=== PATIENT | male | born 1985 | race Caucasian/White ===

== ENCOUNTER 2024-07-16 16:23 | Emergency (ER) | payer OTHER, SELFPAY ==
--- OUTSIDE RECORDS SUMMARY | 2024-07-16 16:26 | XMS_ITS | Encounter Summary ---
Author Organization [facility] Address [address] [place] [address] Care Team Providers Care Marine Tower Operator Name Role Phone Tatyana Dwyer MD Primary Care P rolorettader Tatyana Dwyer MD Unavailable Annalee Toussaint-C Unavailable [phone] Cr Fung MD Unavailable Bianca Rubalcava RN Unavailable [phone] Keegan Montemayor MD Unavailable Un available Joselin Andrade PA-C Unavailable Steven Tatum MD Unavailable Jim Mark MD Unavailable [phone] Jaime Wood MD Unavailable [phone] Annalee Toussaint-C Unavailable [phone] Honey Jackson APRN, CNP Unavailable [phone] Wm Ryan MD Unavailable Tatyana Dwyer MD Unavailable Amalia Agosto GC Unavailable Jaime Wood MD Unavailable [phone] Christen Gallardo MD Unavailable [phone] Ana Fink MD Unavailable Reason for Visit * Reason Onset Date Comments Patient Request 07/21/2019 Encounter Details Date Type Department Care Team ([facility] Contact Info) Description 07/21/2019 [facility] [place] [address] [place] [address] Annalee Toussaint, PAMarianaC [address] [place] [address] Patient Request Social History Tobacco Use Types Packs/Day Years Used Date Smoking Tobacco: Never Smokeless Tobacco: Never Alcohol Use Standard Drinks/Week Comments Yes 1 (1 standard drink = 0.6 oz pur e alcohol) Very occasional AUDIT-C Answer Date Recorded Q1: How often do you have a drink containing alc ohol? 2-4 times a month 06/16/2019 Q2: How many drinks containi ng alcohol do you have on a typical day when you are drinking? 1 or 2 06/16/2019 Q3: How often do you have si x or more drinks on one occasion? Never 06/16/2019 PHQ-2 Answer Date Recorded PHQ-2 Score 0 06/24/2018 Sex and Gender Information Value Date Recorded Sex Assigned at Male 12/19/2020 9:52 PM CDT Legal Sex Male 3:08 AM PURCHASING EXPEDITOR Gender Identity Male 12/19/2020 9:52 PM CDT Sexual Orientation Straight 12/19/2020 9: 52 PM CDT documented as of this encounter Miscellaneous Notes * Telephone Encounter - Luda Curtis - 07/21/2019 12:36 PM CST [facility] Call [facility] Phone Message May a detailed message be left on voicemail: yes Reason for Call: Other: Patient would like to be seen for testicular pain, patient has been seeing Breana and he sasid he no longer want to see her and is not wanting to see someone else. Please callto discuss. Action Taken: Other: [facility] Urology Travel Screening: Not Applicable HASING EXPEDITOR documented in this encounter Plan of Treatment Upcoming Encounters Date Type Department Care Team (Late st Contact Info) Description 08/18/2024 2:00 PM PURCHASING EXPEDITOR Virtual Visit [facility] [address] [facility] [address] [place] [phone] [place] [address] 11/20/2024 9:30 AM CDT Office Visit [facility] [address] [place] [phone] Tatyana Dwyer MD [address] [place], [place] [address] documented as of this encounter Visit Diagnoses Not on filedocumented in this encounter Additional Health Concerns Infection Onset Date Last Indicated Resolved Time Rule Out COVID-19 10/25/2021 10/25/2021 10/26/2021 12:43 PM CDT COVID-19 10/25/2021 10/25/2021 11/15/2021 11:3 9 PM CDT documented as of this encounter Care Teams Marine Tower Operator Relationship Specialty Start Date End Date Tatyana Dwyer MD [address] [place] [address] PCP - General Internal Medicine 06/01/19 Tatyana Dwyer MD [address] [place] [address] Assigned PCP 05/31/19 10/15/20 Annalee Toussaint PA-C [address] [facility] [address] [place] [address] Physician Mid Level Provider Physician Mid Level Provider - Medical 07/15/19 Cr Fung MD [address] [place] [address] [address] [place] [address] Urology 07/15/19 Bianca Rubalcava, RN Specialty Channel Development Director Urology 07/15/19 Keegan Montemayor MD Assigned Heart and Vascular Provider 04/08/20 12/27/20 Joselin Andrade PA-C [address] [place] [address] Assigned Pediatric Specialist Provider 04/08/20 07/17/20 [place] [address] [place] [address] Assigned Surgical Provider 04/08/20 07/22/21 Jim Mark MD [address] [place] [address] Assigned Musculoskeletal Provider 04/08/20 02/11/21 Jaime Wood MD [address] [place] [address] Assigned Sleep Provider 04/08/2004/08 Annalee Toussaint PA-C [address] [place] [address] Assigned OBGYN Provider 08/31/20 1 Honey Jackson APRN FELT STRIP FINISHER [address] [place] [address] Assigned PCP 10/16/20 02/04/21 Wm Ryan MD [address] [place] [address] Resident Student in [facility] health care education/training program 02/01/21 Tatyana Dwyer MD [address] [place] [address] Assigned PCP 02/05/21 Amalia Agosto GC [address] [place], [place] [address] Assigned OBGYN Provider 05/07/21 07/15/21 Jaime Wood MD [address] [id number] Assigned Sleep Provider 07/09/21 [place] [address] Assigned Endocrinology Provider 11/18/21 Ana Fink MD [address] [place] [address] Fellow Gastroenterology 10/16/22 documented as of this encounter
--- OUTSIDE RECORDS SUMMARY | 2024-07-16 16:26 | XMS_ITS | Encounter Summary ---
Author Organization [facility] Address [facility] [place] [address] Care Team Providers Care Ramp Supervisor Name Role Phone Tatyana Dwyer MD Primary Care P rovider Annalee Toussaint PA-C Unavailable [phone] Cr Fung MD Unavailable Bianca Rubalcava RN Unavailable [phone] Wm Ryan MD Unavailable Tatyana Dwyer MD Unavailable Christen Gallardo MD Unavailable [phone] Ana Fink MD Unavailable Encounter Details Date Type Department Care Team (Late st Contact Info) Description 11/29/2023 [facility] Specialty [address] [address] Christen [place] [address] Social History Tobacco Use Types Packs/Day Years Used Date Smoking Tobacco: Never Passive Smoke Exposure: Never Smokeless Tobacco: Never Alcohol Use Standard Drinks/Week Comments Yes 1 (1 standard drink = 0.6 oz pur e alcohol) 1 or less drinks per week Social Connection and Isolation Panel [NHANES] A nswer Date Recorded Frequency of Communication with Friends and Fami ly Not on file 11/16/2023 How often do you get together with friends or re latives? Twice a week 11/16/2023 Attends Zoroastrianism Services Not on file 11/15 Active Member of Clubs or Organizations Not on f ile 11/16/2023 Attends Club or Organization Meetings Not on sheila e 11/16/2023 Marital Status Not on file 11/16/2023 AUDIT-C Answer Date Recorded Q1: How often [...] PHQ-2 Answer Date Recorded PHQ-2 Score 0 11/21/2023 [facility] - Occupational Stress Questionnaire Answer Date Recorded Do you feel stress - tense, restless, nervous, or anxious, or unable to sleep at night because your mind is troubled all the time - these days? Not at all 11/16/2023 Exercise Vital Sign Answer Date Recorde d On average, how many days pe r week do you engage in moderate to strenuous exercise (like a brisk walk)? 6 days 11/16/2023 On average, how many minutes do you engage in exercise at this level? 30 min 11/16/2023 Adolescent Education Answer Date Record ed Getting School Help Needed Not on file 03/16 Food Insecurity Answer Date Recorded Within the past 12 months, d id you worry that your food would run out before you got money to buy more? No 11/16/2023 Within the past 12 months, d id the food you bought just not last and you didn t have money to get more? No 11/16/2023 Housing Stability Answer Date Recorded Do you have housing? (Laurenin g is defined as stable permanent housing and does not include staying ouside in a car, in a tent, in an abandoned building, in an overnight senior care, or couch-surfing.) Yes 11/16/2023 Are you worried about losing your housing? No 11/16/2023 Financial Resource Strain Answer Date R ecorded Within the past 12 months, h ave you or your family members you live with been unable to get utilities (heat, electricity) when it was really needed? No 11/16/2023 Transportation Needs Answer Date Record ed Within the past 12 months, h as lack of transportation kept you from medical appointments, getting your medicines, non-medical meetings or appointments, work, or from getting things that you need? No 11/16/2023 Interpersonal Safety Answer Date Record ed Do you feel physically and e motionally safe where you currently live? Yes 11/21/2023 Within the past 12 months, h ave you been hit, slapped, kicked or otherwise physically hurt by someone? No 11/21/2023 Within the past 12 months, h ave you been humiliated or emotionally abused in other ways by your partner or ex-partner? 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 Gender Identity Male 12/19/2020 9:52 PM CDT Sexual Orientation Straight 12/19/2020 9: 52 PM CDT documented as of this encounter Plan of Treatment Upcoming Encounters Date Type Department Care Team (Late st Contact Info) Description 08/18/2024 2:00 PM ORACLE EBS ARCHITECT Virtual Visit [address] [phone] [place] [address] 11/20/2024 9:30 AM CDT Office Visit [address] [place] [address] [place] [phone] Tatyana Dwyer MD [facility] [address] [place], [place] [address] documented as of this encounter Visit Diagnoses Not on filedocumented in this encounter Care Teams Ramp Supervisor Relationship Specialty Start Date End Date Tatyana Dwyer MD [facility] [place] [address] PCP - General Internal Medicine 06/01/19 Annalee Toussaint PA-C [address] [address] Physician Pallet Stone Inserter Physician Pallet Stone Inserter - Medical 07/15/19 Cr Fung MD [address] [place] [address] Urology 07/15/19 Bianca Rubalcava, RODNEY Specialty Machine Oiler Urology 07/15/19 Wm Rayn MD [address] [place] [id number] Resident Student in organized health care education/training program 02/01/21 Tatyana Dwyer MD [address] [place], [place] [address] Assigned PCP 02/05/21 Christen [place] [address] Assigned Endocrinology Provider 11/18/21 Ana Fink MD [address] [place] [address] Fellow Gastroenterology 10/16/22 documented as of this encounter
--- OUTSIDE RECORDS SUMMARY | 2024-07-16 16:26 | XMS_ITS | Encounter Summary ---
Author Organization [place] Address [facility] [place] [address] Care Team Providers Care Entry Level Name Role Phone Tatyana Dwyer MD Primary Care P rovider Annalee Toussaint-C Unavailable Cr Fung MD Unavailable Bianca Rubalcava RN Unavailable [phone] Wm Ryan MD Unavailable Tatyana Dwyer MD Unavailable Christen Gallardo MD Unavailable [phone] Ana Fink MD Unavailable Encounter Details Date Type Department Care Team (Late st Contact Info) Description 05/06/2023 [facility] Medical Advice [facility] Specialty [address] [address] Christen Gallardo MD [facility] [address] Social History Tobacco Use Types Packs/Day Years Used Date Smoking Tobacco: Never Passive Smoke Exposure: Never Smokeless Tobacco: Never Alcohol Use Standard Drinks/Week Comments Yes 1 (1 standard drink = 0.6 oz pur e alcohol) 1 or less drinks per week AUDIT-C Answer Date Recorded Q1: How often [...] PHQ-2 Answer Date Recorded PHQ-2 Score 0 06/21/2022 Adolescent Education Answer Date Record ed Getting School Help Needed Not on file 03/16 Sex and Gender Information Value Date Recorded Sex Assigned at Male 12/19/2020 9:52 PM CDT Legal Sex Male 3:08 AM COMMERCIAL DRIVER Gender Identity Male 12/19/2020 9:52 PM CDT Sexual Orientation Straight 12/19/2020 9: 52 PM CDT documented as of this encounter Plan of Treatment Upcoming Encounters Date Type Department Care Team (Late st Contact Info) Description 08/18/2024 2:00 PM COMMERCIAL DRIVER Virtual Visit [address] [place] [phone] [place] [address] 11/20/2024 9:30 AM CDT Office Visit [facility] [address] [place] [phone] Tatyana Dwyer MD [address] [place], [place] [address] documented as of this encounter Visit Diagnoses Not on filedocumented in this encounter Care Teams Entry Level Relationship Specialty Start Date End Date Tatyana Dwyer MD [address] [place], [place] [address] PCP - General Internal Medicine 06/01/19 Annalee Toussaint PA-C [address] [address] Physician Overnight Associate Physician Overnight Associate - Medical 07/15/19 Cr Fung MD [address] [place] [address] [address] [place] [address] Urology 07/15/19 Bianca Rubalcava, RN Specialty Ethylene Compressor Operator Urology 07/15/19 Wm Ryan MD [address] [place] [address] 470465 Resident Student in organized health care education/training program 02/01/21 Tatyana Dwyer MD [address] [place], [place] [address] Assigned PCP 02/05/21 Christen Gallardo MD [facility] [address] Assigned Endocrinology Provider 11/18/21 Ana Fink MD [address] [place] [address] Fellow Gastroenterology 10/16/22 documented as of this encounter
--- OUTSIDE RECORDS SUMMARY | 2024-07-16 16:26 | XMS_ITS | Encounter Summary ---
Author Organization [place] Address [address] [place] [address] Care Team Providers Care Orderlies Teacher Name Role Phone Tatyana Dwyer MD Primary Care P rolorettader Tatyana Dwyer MD Unavailable Annalee Toussaint PA-C Unavailable [phone] Cr Fung MD Unavailable [phone] Bianca Rubalcava RN Unavailable [phone] Keegan Montemayor MD Unavailable Un available Steven Tatum MD Unavailable Jim Mark MD Unavailable Jaime Wood MD Unavailable [phone] Annalee Toussaint PA-C Unavailable [phone] Honey Jackson APRN, CNP Unavailable + [phone] Wm Ryan MD Unavailable [phone] Tatyana Dwyer MD Unavailable Amalia Agosto GC Unavailable [phone] Jaime Wood MD Unavailable [phone] Christen Gallardo MD Unavailable [phone] Ana Fink MD Unavailable Encounter Details Date Type Department Care Team (Late st Contact Info) Description 08/23/2020 MyC Medical Advice [facility] [address] [place] [address] Honey Jackson APRN YOUTH PROGRAM DIRECTOR [address] [place] [address] Social History Tobacco Use Types Packs/Day Years [...] PHQ-2 Answer Date Recorded PHQ-2 Score 0 08/23/2020 Sex and Gender Information Value Date Recorded Sex Assigned at Male 12/19/2020 9:52 PM CDT Legal Sex Male 3:08 AM VICE SQUAD POLICE OFFICER Gender Identity Male 12/19/2020 9:52 PM CDT Sexual Orientation Straight 12/19/2020 9: 52 PM CDT COVID-19 Exposure Response Date Recorded In the last month, have you been in contact with someone who was confirmed or suspected to have Coronavirus / COVID-19? No / Unsure 08/23/2020 12:45 PM VICE SQUAD POLICE OFFICER documented as of this encounter Plan of Treatment Upcoming Encounters Date Type Department Care Team (Late st Contact Info) Description 08/18/2024 2:00 PM VICE SQUAD POLICE OFFICER Virtual Visit [facility] Specialty [address] [place] [address] Christen Gallardo [place] [address] 11/20/2024 9:30 AM CDT Office Visit [facility] [address] [place] [address] Tatyana Dwyer MD [address] [place], [place] [address] documented as of this encounter Visit Diagnoses Not on filedocumented in this encounter Additional Health Concerns Infection Onset Date Last Indicated Resolved Time Rule Out COVID-19 10/25/2021 10/25/2021 10/26/2021 12:43 PM CDT COVID-19 10/25/2021 10/25/2021 11/15/2021 11:3 9 PM CDT documented as of this encounter Care Teams Orderlies Teacher Relationship Specialty Start Date End Date Tatyana Dwyer MD [address] [place] [address] PCP - General Internal Medicine 06/01/19 Tatyana Dwyer MD [address] [place] [address] Assigned PCP 05/31/19 10/15/20 Annalee Toussaint, DUSTYC [address] 4[address] Physician Flat Surfacer Physician Flat Surfacer - Medical 07/15/19 Cr Fung MD [address] [place] [address] [address] [place] [address] Urology 07/15/19 Bianca Rubalcava, RODNEY Specialty Cement Patcher Urology 07/15/19 Keegan Montemayor MD Assigned Heart and Vascular Provider 04/08/20 12/27/20 [place] [address] [place] [address] Assigned Surgical Provider 04/08/20 07/22/21 Jim Mark MD [address] [place] [address] Assigned Musculoskeletal Provider 04/08/20 02/11/21 Jaime Wood MD [address] [place] [address] Assigned Sleep Provider 04/08/2004/08 Annalee Toussaint PA-C [address] [place], [place] [address] Assigned OBGYN Provider 08/31/20 1 Honey Jackson APRN CNP [address] [place], [place] [address] Assigned PCP 10/16/20 02/04/21 Wm Ryan MD [address] [place], [place] 120465 Resident Student in organized health care education/training program 02/01/21 Tatyana Dwyer MD [address] [place], [place] [address] Assigned PCP 02/05/21 Amalia Agosto GC [address] [place] [address] Assigned OBGYN Provider 05/07/21 07/15/21 Jaime Wood MD [address] [facility] [address] [place] [address] Assigned Sleep Provider 07/09/21 [place] [address] Assigned Endocrinology Provider 11/18/21 Ana Fink MD [address] [place] [address] Fellow Gastroenterology 10/16/22 documented as of this encounter
--- OUTSIDE RECORDS SUMMARY | 2024-07-16 16:26 | XMS_ITS | Encounter Summary ---
Author Organization [place] Address [facility] [place] [address] Care Team Providers Care Turning And Beading Machine Operator Name Role Phone Tatyana Dwyer MD Primary Care P rovider Annalee Toussaint PA-C Unavailable [phone] Cr Fung MD Unavailable Bianca Rubalcava RN Unavailable [phone] Wm Ryan MD Unavailable Tatyana Dwyer MD Unavailable Jaime Wood MD Unavailable Christen Gallardo MD Unavailable [phone] Ana Fink MD Unavailable Reason for Visit * Reason Onset Date Comments MyChart Communication 03/08/2022 Encounter Details Date Type Department Care Team (Late st Contact Info) Description 03/08/2022 MyC Medical Advice [address] [place] [address] Tatyana Dwyer MD [address] [place] [address] MyChart Communication Social History Tobacco Use Types Packs/Day Years [...] PHQ-2 Answer Date Recorded PHQ-2 Score 0 11/16/2021 Sex and Gender Information Value Date Recorded Sex Assigned at Male 12/19/2020 9:52 PM CDT Legal Sex Male 3:08 AM COMPREHENSIVE ADVISOR Gender Identity Male 12/19/2020 9:52 PM CDT Sexual Orientation Straight 12/19/2020 9: 52 PM CDT documented as of this encounter Miscellaneous Notes * Telephone Encounter - Adriana Minor RN - 03/09/2022 2:00 PM CDT [employer] message sent to patient requesting nurse only BP visit. * Telephone Encounter - Tatyana Dwyer MD - 03/09/2022 11:39 AM CDT The last blood pressures in the chart were elevated. We cannot refill blood pressure prescriptions until June with this blood pressure. I recommend a nurse only appointment to have the blood pressure checked. If the blood pressure is less than 140/90, we will refill the medications until his next appointment in June. If the blood pressure is 140/90 or higher, he needs to see a different provider sooner, to have hismedication adjusted documented in this encounter Plan of Treatment Upcoming Encounters Date Type Department Care Team (Late st Contact Info) Description 08/18/2024 2:00 PM COMPREHENSIVE ADVISOR Virtual Visit [address] [address] Christen Gallardo MD [place] [address] 11/20/2024 9:30 AM CDT Office Visit [facility] [address] [place] [phone] Tatyana Dwyer MD [address] [place], [place] [address] documented as of this encounter Visit Diagnoses Diagnosis HTN, goal below 140/90 Unspecified essential hypertension Tachycardia Tachycardia, unspecified documented in this encounter Care Teams Turning And Beading Machine Operator Relationship Specialty Start Date End Date Tatyana Dwyer MD [address] [place], [place] [address] PCP - General Internal Medicine 06/01/19 Annalee Toussaint PA-C [address] [address] Physician Financial Analysis Advisor Physician Financial Analysis Advisor - Medical 07/15/19 Cr Fung MD [address] [place] [address] Urology 07/15/19 Bianca Rubalcava, RN Specialty Panman Urology 07/15/19 Wm Ryan MD [address] [place] [address] Resident Student in organized health care education/training program 02/01/21 Tatyana Dwyer MD [address] [place] [address] Assigned PCP 02/05/21 Jaime Wood MD [address] [address] Assigned Sleep Provider 07/09/21 01/04/23 Christen Gallardo [place] [address] Assigned Endocrinology Provider 11/18/21 Ana Fink MD [address] [place] [address] Fellow Gastroenterology 10/16/22 documented as of this encounter
--- OUTSIDE RECORDS SUMMARY | 2024-07-16 16:26 | XMS_ITS | Encounter Summary ---
Author Organization [place] Address [facility] [place] [address] Care Team Providers Care Deputy Commissioner Name Role Phone Tatyana Dwyer MD Primary Care P rovider Annalee Toussaint-C Unavailable [phone] Cr Fung MD Unavailable [phone] Bianca Rubalcava RN Unavailable [phone] Steven Tatum MD Unavailable Wm Ryan MD Unavailable Tatyana Dwyer MD Unavailable Amalia Agosto GC Unavailable [phone] Jaime Wood MD Unavailable [phone] Christen Gallardo MD Unavailable [phone] Ana Fink MD Unavailable Encounter Details Date Type Department Care Team (Late st Contact Info) Description 07/03/2021 [facility] Medical [facility] [place] [address] [facility] [address] [place] [address] Jaime Wood MD 2481 [facility] 103 [place] [address] Social History Tobacco Use Types Packs/Day Years [...] PHQ-2 Answer Date Recorded PHQ-2 Score 0 07/03/2021 Sex and Gender Information Value Date Recorded Sex Assigned at Male 12/19/2020 9:52 PM CDT Legal Sex Male 3:08 AM COMPUTER TEACHER Gender Identity Male 12/19/2020 9:52 PM CDT Sexual Orientation Straight 12/19/2020 9: 52 PM CDT documented as of this encounter Plan of Treatment Upcoming Encounters Date Type Department Care Team (Late st Contact Info) Description 08/18/2024 2:00 PM COMPUTER TEACHER Virtual Visit [facility] Specialty [address] [place] [phone] Christen Gallardo [place] [address] 11/20/2024 9:30 AM CDT Office Visit [address] [place] [phone] Tatyana Dwyer [place] [address] documented as of this encounter Visit Diagnoses Not on filedocumented in this encounter Additional Health Concerns Infection Onset Date Last Indicated Resolved Time Rule Out COVID-19 10/25/2021 10/25/2021 10/26/2021 12:43 PM CDT COVID-19 10/25/2021 10/25/2021 11/15/2021 11:3 9 PM CDT documented as of this encounter Care Teams Deputy Commissioner Relationship Specialty Start Date End Date CriTatyana Shannon MD [address] [place] [address] PCP - General Internal Medicine 06/01/19 Annalee Toussaint PA-C [address] [facility] 500 [place], [place] [address] Physician Visitor Services Associate Physician Visitor Services Associate - Medical 07/15/19 Cr Fung MD [address] [address] Urology 07/15/19 Bianca Rubalcava, RODNEY Specialty Contract Sheltered Workshop Supervisor Urology 07/15/19 [place] [address] [place] [address] 248189 Assigned Surgical Provider 04/08/20 07/22/21 Wm Ryan MD [address] [place] [address] Resident Student in organized health care education/training program 02/01/21 Tatyana Dwyer MD [address] [place] [address] Assigned PCP 02/05/21 Amalia Agosto GC 24[address] [place], [place] 3[address] Assigned OBGYN Provider 05/07/21 07/15/21 Jaime Wood MD [address] [facility] [address] [place], [place] [address] Assigned Sleep Provider 07/09/21 01/04/23 [place] [address] Assigned Endocrinology Provider 11/18/21 Ana Fink MD [address] [place] [address] Fellow Gastroenterology 10/16/22 documented as of this encounter
--- OUTSIDE RECORDS SUMMARY | 2024-07-16 16:26 | XMS_ITS | Encounter Summary ---
Author Organization [place] Address [address] [place] [address] Care Team Providers Care Manager Party Name Role Phone Tatyana Dwyer MD Primary Care P rolorettader Tatyana Dwyer MD Unavailable Annalee Toussaint PA-C Unavailable [phone] Cr Fung MD Unavailable [phone] Bianca Rubalcava RN Unavailable [phone] eKegan Montemayor MD Unavailable Un available Steven Tatum MD Unavailable Jim Mark MD Unavailable Jaime Wood MD Unavailable [phone] Annalee Toussaint PA-C Unavailable [phone] Honey Jackson APRN, CNP Unavailable + [phone] Wm Ryan MD Unavailable [phone] Tatyana Dwyer MD Unavailable Amalia Agosto GC Unavailable [phone] Jaime Wood MD Unavailable [phone] Christen Gallardo MD Unavailable [phone] Ana Fink MD Unavailable Encounter Details Date Type Department Care Team (Late st Contact Info) Description 07/28/2020 MyC Medical Advice [facility] [address] [facility] [address] 5th [place] [address] Hill Spears MD 420 [facility] 741 [place] [address] Social History Tobacco Use Types Packs/Day Years [...] PM CDT Legal Sex Male 3:08 AM CUSTOMER SUPPORT EXECUTIVE Gender Identity Male 12/19/2020 9:52 PM CDT Sexual Orientation Straight 12/19/2020 9: 52 PM CDT documented as of this encounter Plan of Treatment Upcoming Encounters Date Type Department Care Team (Late st Contact Info) Description 08/18/2024 2:00 PM CUSTOMER SUPPORT EXECUTIVE Virtual Visit [address] [place] [phone] Christen Gallardo MD [place] [address] 11/20/2024 9:30 AM CDT Office Visit [place] [address] [place] [phone] Tatyana Dwyer MD [address] [place], [place] [address] documented as of this encounter Visit Diagnoses Not on filedocumented in this encounter Additional Health Concerns Infection Onset Date Last Indicated Resolved Time Rule Out COVID-19 10/25/2021 10/25/2021 10/26/2021 12:43 PM CDT COVID-19 10/25/2021 10/25/2021 11/15/2021 11:3 9 PM CDT documented as of this encounter Care Teams Manager Party Relationship Specialty Start Date End Date Tatyana Dwyer MD [address] [place] [address] PCP - General Internal Medicine 06/01/19 Tatyana Dwyer MD [address] [place] [address] Assigned PCP 05/31/19 10/15/20 Annalee Toussaint, PAMarianaC [address] [facility] [address] [address] Physician Blood Bank Technician Physician Blood Bank Technician - Medical 07/15/19 Cr Fung MD 420 [facility] 394 [place], [place] [address] Urology 07/15/19 Bianca Rubalcava, RN Specialty Control Officer Manager Urology 07/15/19 Keegan Montemayor MD Assigned Heart and Vascular Provider 04/08/20 12/27/20 [place] [address] [place] [address] Assigned Surgical Provider 04/08/20 07/22/21 Jim Mark MD [address] [place] [address] Assigned Musculoskeletal Provider 04/08/20 02/11/21 Jaime Wood MD [address] [place] [address] Assigned Sleep Provider 04/08/2004/08 Annalee Toussaint PA-C [address] [place] [address]175 Assigned OBGYN Provider 08/31/20 1 Honey Jackson APRN CNP [address] [place], [place] [address] Assigned PCP 10/16/20 02/04/21 Wm Ryan MD [address] [place] [address]23895 Resident Student in organized health care education/training program 02/01/21 Tatyana Dwyer MD [address] [place] [address] Assigned PCP 02/05/21 Amalia Agosto GC [address] [place], [place] 3[address] Assigned OBGYN Provider 05/07/21 07/15/21 Jaime Wood MD [address] [place] [address] Assigned Sleep Provider 07/09/21 [place] [address] Assigned Endocrinology Provider 11/18/21 Ana Fink MD [address] [place] [address] Fellow Gastroenterology 10/16/22 documented as of this encounter
--- OUTSIDE RECORDS SUMMARY | 2024-07-16 16:26 | XMS_ITS | Encounter Summary ---
Author Organization [place] Address [facility] [place] [address] Care Team Providers Care Safety Aide Name Role Phone Tatyana Dwyer MD Primary Care P rovider Annalee Toussaint PA-C Unavailable Cr Fung MD Unavailable Bianca Rubalcava RN Unavailable [phone] Wm Ryan MD Unavailable Tatyana Dwyer MD Unavailable Jaime Wood MD Unavailable Christen Gallardo MD Unavailable [phone] Ana Fink MD Unavailable Reason for Visit * Reason Onset Date Comments Call Back 08/17/2021 Encounter Details Date Type Department Care Team (Late st Contact Info) Description 08/17/[address] [place] [address] Dory Thompson MD [address] [place] [address] Call Back Social History Tobacco Use Types Packs/Day Years [...] PM CDT Legal Sex Male 3:08 AM MECHANICAL ADJUSTER Gender Identity Male 12/19/2020 9:52 PM CDT Sexual Orientation Straight 12/19/2020 9: 52 PM CDT documented as of this encounter Miscellaneous Notes * Telephone Encounter - Kerri Flores - 08/21/2021 1:58 PM CST LVM for patient to reschedule missed appointment with Dr Ryan. ANICAL ADJUSTER * Telephone Encounter - Kerri Flores - 08/17/2021 3:23 PM CST Please call to reschedule. ANICAL ADJUSTER * Telephone Encounter - Becca Guerin - 08/17/2021 7:15 AM CST [facility] Call Center Phone Message May a detailed message be left on voicemail: yes Reason for Call: Other: Patient Has a 9am in person appointment with Wm Ryan MD patient is sick and wants to know if provider can accommodate a video visit today? Action Taken: Other: ENDO Travel Screening: Not Applicable ANICAL ADJUSTER documented in this encounter Plan of Treatment Upcoming Encounters Date Type Department Care Team (Late st Contact Info) Description 08/18/2024 2:00 PM MECHANICAL ADJUSTER Virtual Visit [facility] Specialty [address] [phone] Christen Gallardo MD [place] [address] 11/20/2024 9:30 AM CDT Office Visit [facility] [address] [place] [phone] Tatyana Dwyer MD [address] [place], [place] [address] documented as of this encounter Visit Diagnoses Not on filedocumented in this encounter Additional Health Concerns Infection Onset Date Last Indicated Resolved Time Rule Out COVID-19 10/25/2021 10/25/2021 10/26/2021 12:43 PM CDT COVID-19 10/25/2021 10/25/2021 11/15/2021 11:3 9 PM CDT documented as of this encounter Care Teams Safety Aide Relationship Specialty Start Date End Date Tatyana Dwyer MD [address] [place], [place] [address] PCP - General Internal Medicine 06/01/19 Annalee Toussaint, PAMarianaC 6363 [facility] 500 [place], [place] [address] Physician Jet Dyeing Machine Operator Physician Jet Dyeing Machine Operator - Medical 07/15/19 Cr Fung MD [address] [address] Urology 07/15/19 Bianca Rubalcava, ROD[place] Specialty Video Production Intern Urology 07/15/19 Wm Ryan MD 420 [place] [address] Resident Student in organized health care education/training program 02/01/21 Tatyana Dwyer MD [address] [place] [address] Assigned PCP 02/05/21 Jaime Wood MD [address] [address] Assigned Sleep Provider 07/09/21 01/04/23 [place] [address] Assigned Endocrinology Provider 11/18/21 Ana Fink MD [address] [place] [address] Fellow Gastroenterology 10/16/22 documented as of this encounter
--- OUTSIDE RECORDS SUMMARY | 2024-07-16 16:26 | XMS_ITS | Encounter Summary ---
Author Organization [facility] Address [address] [place] [address] Care Team Providers Care Powder Worker Name Role Phone Michelet Velasco MD Primary Care Provid er Reason for Visit * Reason Comments Infection (Suspected) Encounter Details Date Type Department Care Team (Late st Contact Info) Description 07/16/2024 9:40 AM HOSPITAL CNA Office Visit [facility] [address] [place] [address] Rafa Sosa, TACK MAKER, CREW DISPATCHER [address] [place] [address] Leg swelling; Pain of right lower extremity Social History Tobacco Use Types Packs/Day Years Used Date Smoking Tobacco: Never Smokeless Tobacco: Never Alcohol Use Standard Drinks/Week Comments Yes 0 (1 standard drink = 0.6 oz pur e alcohol) occasional Sex and Gender Information Value Date Recorded Sex Assigned at Not on file Gender Identity Not on file Sexual Orientation Not on file documented as of this encounter Last Filed Vital Signs Vital Sign Reading Time Taken Comments Blood Pressure 137/72 07/16/2024 9:33 AM HOSPITAL CNA Pulse 90 07/16/2024 9:33 AM HOSPITAL CNA Temperature 36.6 C (97.8 F) 07/16/2024 9:33 AM HOSPITAL CNA Respiratory Rate 18 07/16/2024 9:33 AM HOSPITAL CNA Oxygen Saturation 99% 07/16/2024 9:33 AM HOSPITAL CNA Inhaled Oxygen Concentration - - Weight - - Height - - Body Mass Index - - documented in this encounter Patient Instructions * Patient Instructions* Rafa Sosa APRN, CNP - 07/16/2024 9:40 AM HOSPITAL CNA Take Ibuprofen or Naproxen for the next 3-5 days then as needed for pain. If using Ibuprofen take 600 mg every 6 hours. If using Naproxen take 2 tabs twice daily. You may also take Tylenol. If taking Tylenol you may take 650-1000 mg also every 6 hours. Use ice for 20 min at a time 4-6 times daily for the next couple of days. ITAL CNA * Attachments The following attachments cannot be sent through Care Everywhere. * Cellulitis (Faroese) documented in this encounter Progress Notes * Rafa Sosa APRN, CNP - 07/16/2024 9:40 AM CST Patient ID Kade Palacio 1985 SUBJECTIVE: 38 y.o.male patient presents for evaluation of a possible skin infection of the right upper thigh. He notes that a couple of days ago he did his usual injection in his thigh and last night noted thatit started to develop discomfort in the area and this morning seemed to be larger in size and more painful therefore he presents for evaluation. Area is not red. He has not felt any fevers. No drainag e. No other concerns or complaints. Past Medical Surgical and Social History reviewed on EMR Medications reviewed on EMR No Known Allergies ROS: As noted in HPI, all other review of systems are negative. OBJECTIVE Blood pressure 137/72, pulse 90, temperature 36.6 ??C (97.8 ??F), temperature source Oral, resp. rate 18, SpO2 99%. General: Alert,No obviousdiscomfort, well kept HENT: Normal voice, No lymphadenopathy Eyes: The pupils are equal, round, and reactive to light, Conjunctiva normal, No scleral icterus Neck: Normal range of motion CV: Normal Pulses Resp: Non-labored, No cough MS: Normal muscular tone, moves all extremities Skin: Right upper thigh with a proximally 3 cm x 5 cm area of swelling there is no significant bruising. No significant erythema. Moderately tender. Normal thermic. Neuro: Speech is normal and fluent Psych: Awake. Alert. Normal affect. Appropriate interactions. Good eye contact Procedure: Needle aspiration: Right upper thigh Anesthesia: 2 mL of 0.5% bupivacaine used to anesthetized area. 18 gauge needle used in attempt to aspirate area of possible fluctuance. No drainage noted. No discharge noted. ASSESSMENT: Kade Palacio is a 38 y.o. male who presents for evaluation of concerns as noted above. His examination is most consistent with likely deep hematoma verses infection. No infectious signs on examination. Unable to notice any drainage from the area. It did attempt a needle aspiration as noted above without any discharge. We will try a course of NSAIDs and ice. I have given him a prescription for Bactrim to start if he wants to immediately or to see if the anti-inflammatory treatment works. Concerning signs and symptoms as well as reasons to present to the emergency department were discussed. He does appear to be safe and appropriate for outpatient management follow-up and is discharged home. Diagnosis and Associated Orders ICD-10-CM 1. Leg swelling M79.89 2. Pain of right lower extremity M79.604 PLAN: Make sure and finish the entire course of antibiotics. Elevate extremity when possible. Supportive care with tylenol or motrin. Follow up with primary care physician in 3 - 5 days. May return here or go to the ER if worsening symptoms or concerns. ITAL CNA documented in this encounter Nursing Notes * Bolivar Vizcarra LPN - 07/16/2024 9:40 AM CST Patient is here today due to R thigh injection site bump, redness, swelling, and warmth. Pt states that this started 1 day ago and has significantly worsened. Pt states that it woke him during the night. Pt denies OTC products ITAL CNA documented in this encounter Plan of Treatment Not on file documented as of this encounter Visit Diagnoses Diagnosis Leg swelling Swelling of limb Pain of right lower extremity documented in this encounter Care Teams Powder Worker Relationship Specialty Start Date End Date Michelet Velasco MD [address] [place] [address] PCP - General 10/20/13 documented as of this encounter
--- OUTSIDE RECORDS SUMMARY | 2024-07-16 16:26 | XMS_ITS | Clinical Summary ---
Author Organization [facility] Address [address], [place] [address] Care Team Providers Care Deliverer Pharmacy Name Role Phone Michelet Velasco MD Primary Care Provid er Source Comments You are receiving this document as you are listed as the primary care provider,follow-up provider, or the patient has been referred to you for consultation.This is in compliance with the Medicare andMedicaid EHR Incentive Program,which states Providers who transition their patient to another setting of careor provider of care or refers their patient to another provider of care shouldprovide summary care record for each transition of care or referral. Shareholder [facility] Allergies No known active allergies Medications Medication Sig Dispensed Refills Start Date End Date Status hydroCHLOROthiazid e (ORETIC) 25 MG tablet 08/26/2018 Active lisinopril (ZESTRIL) 10 MG tablet 08/26/2018 Active nebivolol (BYSTOLIC) 2.5 MG Take 1 Tablet (2.5 mg) by mouth. 06/30/2019 Active omega-3 fatty acids (FISH OIL) 1000 MG capsule Take 1 Capsule (1,000 mg) by mouth. 11/25/2015 Active omeprazole (PRILOSEC OTC) 20 MG enteric coated tablet Take 1 Tablet (20 mg) by mouth. 06/17/2016 Active sildenafil (VIAGRA) 100 MG tablet Take 0.5-1 Tablets (50-100 mg) by mouth. 08/20/2019 Active multivitamin (THERAGRAN) tablet Take 1 Tablet by mouth daily. Active Probiotic Product (SUPER PROBIOTIC OR) Active baclofen (LIORESAL) 10 MG tablet Take 0.5-1 Tablets (5-10 mg) by mouth two times daily as needed (muscle tension/pain). 60 Tablet 1 10/29/2023 Active Additional Information Patient not taking.Reported on 07/16/2024 testosterone cypionate (DEPO-TESTOSTERONE ) 200 MG/ML injection 0.5 mL (100 mg). Active Tadalafil (CIALIS) 10 MG tablet Take 1 tablet by mouth daily as needed, take pre intercourse as directed. 05/06/2023 Active WEGOVY 2.4 MG/0.75ML pen injection SMARTSI.4 Milligram(s) SUB-Q Once a Week Active WEGOVY 1.7 MG/0.75ML pen injection SMARTSI.7 Milligram(s) SUB-Q Once a Week Active semaglutide-weight management (WEGOVY) 0.5 MG/0.5ML pen injection 06/18/2023 Active sulfamethoxazole-t rimethoprim (BACTRIM DS) 800-160 MG tablet Take 1 Tablet by mouth two times a day for 7 days. 14 Tablet 07/16/2024 07/23/2024 Active Active Problems Problem Noted Date Diagnosed Date Heartburn 11/21/2023 Seasonal allergies 10/29/2023 Polyp of colon 10/09/2023 Family history of malignant neoplasm of duodenum 01/26/2021 Family history of colonic polyps 01/26/2021 Kidney cyst, acquired 08/05/2017 Gastroesophageal reflux disease without esophagi tis 11/25/2015 Class 3 severe obesity with body mass index (BMI) of 45.0 to 49.9 in adult 11/25/2015 Obesity with body mass index 30 or greater 12/29 Hypertension 06/17/2009 Encounters Date Type Department Care Team Description 07/16/2024 9:40 AM DIRECTOR OF MIDWIFERY/STAFF MIDWIFE Office Visit [place] [facility] [address] [place] [address] Rafa Sosa, NURSE ADVISOR, SCALE TESTER Leg swelling; Pain of right lower extremity from Last 3 Months Social History Tobacco Use Types Packs/Day Years Used Date Smoking Tobacco: Never Smokeless Tobacco: Never Alcohol Use Standard Drinks/Week Comments Yes 0 (1 standard drink = 0.6 oz pur e alcohol) occasional Sex and Gender Information Value Date Recorded Sex Assigned at Not on file Gender Identity Not on file Sexual Orientation Not on file Last Filed Vital Signs Vital Sign Reading Time Taken Comments Blood Pressure 137/72 07/16/2024 9:33 AM DIRECTOR OF MIDWIFERY/STAFF MIDWIFE Pulse 90 07/16/2024 9:33 AM DIRECTOR OF MIDWIFERY/STAFF MIDWIFE Temperature 36.6 C (97.8 F) 07/16/2024 9:33 AM DIRECTOR OF MIDWIFERY/STAFF MIDWIFE Respiratory Rate 18 07/16/2024 9:33 AM DIRECTOR OF MIDWIFERY/STAFF MIDWIFE Oxygen Saturation 99% 07/16/2024 9:33 AM DIRECTOR OF MIDWIFERY/STAFF MIDWIFE Inhaled Oxygen Concentration - - Weight 149.7 kg (330 lb) 08/29/2023 8:45 AM CDT Height 182.9 cm (6') 08/29/2023 8:45 AM CDT Body Mass Index 44.76 08/29/2023 8:45 AM CDT Plan of Treatment Health Maintenance Due Date Last Done Comments Hep C Screening (Preventive Services) 1985 HIV Screening (Preventive Services) 2001 Adult Preventive Visit 08/31/2003 HepB (1) 2004 Cholesterol 2020 Diabetes Screening- (based on age and BMI) 11/20/2026 11/21/2023, 04/02/2023 DTaP/Tdap/Td (3 - Tdap) 11/26/2031 11/25/2021, 09/27 Zoster/Shingles (1 of 2) 08/31/2035 MCV4 Aged Out 07/06/2003 No longer eligi ble based on patient's age to complete this topic Influenza Completed 06/03/2024, 0 02/2023, 02/16/2023, Additional history exists COVID-19 Vaccine Completed 06/20/2024, , 03/30/2022, Additional history exists HPV Vaccine Aged Out No longer eligi ble based on patient's age to complete this topic HepA Aged Out No longer eligi ble based on patient's age to complete this topic Hib Aged Out No longer eligi ble based on patient's age to complete this topic IPV (Polio) Aged Out No longer eligi ble based on patient's age to complete this topic Pneumococcal Aged Out No longer eligi ble based on patient's age to complete this topic Care Teams Deliverer Pharmacy Relationship Specialty Start Date End Date Michelet Velasco MD [address] [place] [address] PCP - General 10/20/13
--- OUTSIDE RECORDS SUMMARY | 2024-07-16 16:27 | XMS_ITS | Encounter Summary ---
Author Organization [facility] Address [address] [facility] [place] [address] Care Team Providers Care Meat Butcher Name Role Phone Tatyana Dwyer MD Primary Care P rovider Annalee Toussaint-C Unavailable [phone] Cr Fung MD Unavailable Bianca Rubalcava RN Unavailable [phone] Steven Tatum MD Unavailable Jaime Wood MD Unavailable Wm Ryan MD Unavailable Tatyana Dwyer MD Unavailable Amalia Agosto GC Unavailable [phone] Jaime Wood MD Unavailable Christen Gallardo MD Unavailable [phone] Ana Fink MD Unavailable Encounter Details Date Type Department Care Team (Late st Contact Info) Description 04/06/2021 External Order Results [facility] [address] [place] [address] Outside, Provider Social History Tobacco Use Types Packs/Day Years [...] PHQ-2 Answer Date Recorded PHQ-2 Score 0 04/06/2021 Sex and Gender Information Value Date Recorded Sex Assigned at Male 12/19/2020 9:52 PM CDT Legal Sex Male 3:08 AM PACKAGING MECHANIC Gender Identity Male 12/19/2020 9:52 PM CDT Sexual Orientation Straight 12/19/2020 9: 52 PM CDT COVID-19 Exposure Response Date Recorded In the last month, have you been in contact with someone who was confirmed or suspected to have Coronavirus / COVID-19? No / Unsure 04/06/2021 9:20 AM CDT documented as of this encounter Plan of Treatment Upcoming Encounters Date Type Department Care Team (Late st Contact Info) Description 08/18/2024 2:00 PM PACKAGING MECHANIC Virtual Visit [address] [place] [phone] [place] [address] 11/20/2024 9:30 AM CDT Office Visit [address] [place] [address] [place] [address] Tatyana Dwyer MD [address] [place] [address] documented as of this encounter Visit Diagnoses Not on filedocumented in this encounter Additional Health Concerns Infection Onset Date Last Indicated Resolved Time Rule Out COVID-19 10/25/2021 10/25/2021 10/26/2021 12:43 PM CDT COVID-19 10/25/2021 10/25/2021 11/15/2021 11:3 9 PM CDT documented as of this encounter Care Teams Meat Butcher Relationship Specialty Start Date End Date Tatyana Dwyer MD [address] [place] [address] PCP - General Internal Medicine 06/01/19 Annalee Toussaint PA-C [address] [place], [place] [address] Physician Insulation Cupola Charger Physician Insulation Cupola Charger - Medical 07/15/19 Cr Fung MD [address] [address] Urology 07/15/19 Bianca Rubalcava, RODNEY Specialty Contact Lens Assistant Urology 07/15/19 [place] [address] [place] [address] Assigned Surgical Provider 04/08/20 07/22/21 Jaime Wood MD [address] [place] [address] Assigned Sleep Provider 04/08/20 04/08/21 Wm Ryan MD [address] [place] [address]86395 Resident Student in organized health care education/training program 02/01/21 Tatyana Dwyer MD [address] [place] [address] Assigned PCP 02/05/21 Amalia Agosto GC [address] [place] [address] Assigned OBGYN Provider 05/07/21 07/15/21 Jaime Wood MD [address] [address] Assigned Sleep Provider 07/09/21 01/04/23 Christen Gallardo MD [place] [address] Assigned Endocrinology Provider 11/18/21 Ana Fink MD [address] [place] [address] Fellow Gastroenterology 10/16/22 documented as of this encounter
--- OUTSIDE RECORDS SUMMARY | 2024-07-16 16:27 | XMS_ITS | Encounter Summary ---
Author Organization [facility] Address [address] [place] [address] Care Team Providers Care Television Technician Name Role Phone Tatyana Dwyer MD Primary Care P rovider Annalee Toussaint-C Unavailable [phone] Cr Fung MD Unavailable Bianca Rubalcava RN Unavailable [phone] Wm Ryan MD Unavailable [phone] Tatyana Dwyer MD Unavailable Christen Gallardo MD Unavailable [phone] Ana Fink MD Unavailable Encounter Details Date Type Department Care Team (Late st Contact Info) Description 04/02/2023 [facility] [address] [address] Ana Fink MD [address] [place] [address] Social History Tobacco Use Types Packs/Day Years [...] PM CDT Legal Sex Male 3:08 AM BELL CAPTAIN Gender Identity Male 12/19/2020 9:52 PM CDT Sexual Orientation Straight 12/19/2020 9: 52 PM CDT COVID-19 Exposure Response Date Recorded In the last 10 days, have yo u been in contact with someone who was confirmed or suspected to have Coronavirus/COVID-19? No / Unsure 03/26/2023 8:50 PM CDT documented as of this encounter Plan of Treatment Upcoming Encounters Date Type Department Care Team (Late st Contact Info) Description 08/18/2024 2:00 PM BELL CAPTAIN Virtual Visit [address] [place] [phone] [place] [address] 11/20/2024 9:30 AM CDT Office Visit [place] [address] [place] [phone] Tatyana Dwyer MD [address] [place], [place] [address] documented as of this encounter Visit Diagnoses Not on filedocumented in this encounter Care Teams Television Technician Relationship Specialty Start Date End Date Tatyana Dwyer MD [address] [place], [place] [phone] PCP - General Internal Medicine 06/01/19 Annalee Toussaint PA-C [address] [address] Physician Associate Juvenile Court Judge Physician Associate Juvenile Court Judge - Medical 07/15/19 Cr Fung MD [address] [place] [address] [address] [place] [address] Urology 07/15/19 Bianca Rubalcava, RN Specialty Customs Entry Clerk Urology 07/15/19 Wm Ryan MD [address] [place] [address] [id number] Resident Student in organized health care education/training program 02/01/21 Tatyana Dwyer MD [address] [place] [address] Assigned PCP 02/05/21 Christen Gallardo [place] [address] Assigned Endocrinology Provider 11/18/21 Ana Fink MD [address] [place] [address] Fellow Gastroenterology 10/16/22 documented as of this encounter
--- OUTSIDE RECORDS SUMMARY | 2024-07-16 16:27 | XMS_ITS | Encounter Summary ---
Author Organization [facility] Address [address] [place] [address] Care Team Providers Care Driver License Technician Name Role Phone Tatyana Dwyer MD Primary Care P rolorettader Tatyana Dwyer MD Unavailable Annalee Toussaint-C Unavailable Cr Fung MD Unavailable Bianca Rubalcava RN Unavailable [phone] Keegan Montemayor MD Unavailable Un available Joselin Andrade PA-C Unavailable Steven Tatum MD Unavailable Jim Mark MD Unavailable [phone] Jaime Wood MD Unavailable [phone] Annalee Toussaint-C Unavailable [phone] Honey Jackson APRN, CNP Unavailable [phone] Wm Ryan MD Unavailable Tatyana Dwyer MD Unavailable Amalia Agosto GC Unavailable [phone] Jaime Wood MD Unavailable [phone] Christen Gallardo MD Unavailable [phone] Ana Fink MD Unavailable Encounter Details Date Type Department Care Team (Late st Contact Info) Description 06/30/2019 MyC Medical Advice [facility] Heart [facility] [address] [facility] [address] [place] [phone] Keegan Montemayor MD Social History Tobacco Use Types Packs/Day Years [...] PM CDT Legal Sex Male 3:08 AM WILDLAND FIRE FIGHTER Gender Identity Male 12/19/2020 9:52 PM CDT Sexual Orientation Straight 12/19/2020 9: 52 PM CDT documented as of this encounter Miscellaneous Notes * Telephone Encounter - Keegan Montemayor MD - 06/30/2019 1:52 PM WILDLAND FIRE FIGHTER Okay to discontinue metoprolol, start Bystolic 2.5 mg daily. He can just stop metoprolol 1 day and start Bystolic the next day. Keegan Montemayor MD Cardiology - [facility] Heart Pager: [phone] Text Page June 30, 2019 LAND FIRE FIGHTER documented in this encounter Plan of Treatment Upcoming Encounters Date Type Department Care Team (Late st Contact Info) Description 08/18/2024 2:00 PM WILDLAND FIRE FIGHTER Virtual Visit [facility] Specialty [address] [place] [address] Christen Gallardo MD [facility] [place] [address] 11/20/2024 9:30 AM CDT Office Visit [facility] [address] [place] [phone] Tatyana Dwyer MD [address] [place], [place] [address] documented as of this encounter Visit Diagnoses Not on filedocumented in this encounter Additional Health Concerns Infection Onset Date Last Indicated Resolved Time Rule Out COVID-10/25/2021 10/25/2021 10/26/2021 12:43 PM CDT COVID-19 10/25/2021 10/25/2021 11/15/2021 11:3 9 PM CDT documented as of this encounter Care Teams Driver License Technician Relationship Specialty Start Date End Date Tatyana Dwyer MD [address] [place] [address] PCP - General Internal Medicine 06/01/19 Tatyana Dwyer MD [address] [place] [address] Assigned PCP 05/31/19 10/15/20 Annalee Toussaint, PAMarianaC [address] [address] Physician Roadway Designer Physician Roadway Designer - Medical 07/15/19 Cr Fung MD [address] [place] [address] Urology 07/15/19 Bianca Rubalcava, RODNEY Specialty Textile Converter Urology 07/15/19 Keegan Montemayor MD Assigned Heart and Vascular Provider 04/08/20 12/27/20 Joselin Andrade PA-C [address] [place] [address] Assigned Pediatric Specialist Provider 04/08/20 07/17/20 [place] [address] [place] [address] Assigned Surgical Provider 04/08/20 07/22/21 Jim Mark MD [address] [place] [address] Assigned Musculoskeletal Provider 04/08/20 02/11/21 Jaime Wood MD [address] [place] [address] Assigned Sleep Provider 04/08/2004/08 Annalee Toussaint PA-C [address] [place] [address] Assigned OBGYN Provider 08/31/20 1 Honey Jackson APRN [facility] [address] [place] [address] Assigned PCP 10/16/20 02/04/21 Wm Ryan MD [address] [place] [address] Resident Student in organized health care education/training program 02/01/21 Tatyana Dwyer MD [address] [place] [address] Assigned PCP 02/05/21 Amalia Agosto GC [address] [place] [address] Assigned OBGYN Provider 05/07/21 07/15/21 Jaime Wood MD [address] [facility] [address] [place] [address] Assigned Sleep Provider 07/09/21 [place] [address] Assigned Endocrinology Provider 11/18/21 Ana Fink MD [address] [place] [address] Fellow Gastroenterology 10/16/22 documented as of this encounter
--- OUTSIDE RECORDS SUMMARY | 2024-07-16 16:27 | XMS_ITS | Encounter Summary ---
Author Organization [facility] Address [address] [place] [address]. [place] [address] Care Team Providers Care Office Helper Clerical Name Role Phone Tatyana Dwyer MD Primary Care P rovider Annalee Toussaint-C Unavailable [phone] Cr Fung MD Unavailable [phone] Bianca Rubalcava RN Unavailable [phone] Wm Ryan MD Unavailable Tatyana Dwyer MD Unavailable Christen Gallardo MD Unavailable [phone] Ana Fink MD Unavailable Encounter Details Date Type Department Care Team (Late st Contact Info) Description 07/01/2023 [facility] Medical Advice [facility] [address] [address] Nita Esteban, RN Social History Tobacco Use Types Packs/Day Years [...] PM CDT Legal Sex Male 3:08 AM HAND FLATWORK FINISHER Gender Identity Male 12/19/2020 9:52 PM CDT Sexual Orientation Straight 12/19/2020 9: 52 PM CDT documented as of this encounter Plan of Treatment Upcoming Encounters Date Type Department Care Team (Late st Contact Info) Description 08/18/2024 2:00 PM HAND FLATWORK FINISHER Virtual Visit [facility] [address] [place] [address] [address] [place] [phone] Christen Gallardo MD [place], [place] [address] 11/20/2024 9:30 AM CDT Office Visit [facility] [address] [facility] [address] [place] [phone] Tatyana Dwyer MD [address] [place], [place] 175837 documented as of this encounter Visit Diagnoses Not on filedocumented in this encounter Care Teams Office Helper Clerical Relationship Specialty Start Date End Date Tatyana Dwyer MD [address] [place], [place] [address] PCP - General Internal Medicine 06/01/19 Annalee Toussaint PA-C [address] [facility] [address] [place] [address] Physician Senior User Experience Architect Physician Senior User Experience Architect - Medical 07/15/19 Cr Fung MD [address] [facility] [address] [place] [address] Urology 07/15/19 Bianca Rubalcava, RN Specialty Professor/Nurse Anesthetist Urology 07/15/19 Wm Ryan MD [address] [place] [address] [id number] Resident Student in organized health care education/training program 02/01/21 Tatyana Dwyer MD [address] [place] [address] Assigned PCP 02/05/21 Christen Gallardo MD [facility] [place], [place] [address] Assigned Endocrinology Provider 11/18/21 Ana Fink MD [address] [place] [address] Fellow Gastroenterology 10/16/22 documented as of this encounter
--- OUTSIDE RECORDS SUMMARY | 2024-07-16 16:27 | XMS_ITS | Encounter Summary ---
Author Organization [place] Address [address] [place] [address] Care Team Providers Care Sole Inker Name Role Phone Tatyana Dwyer MD Primary Care P rovider Annalee Toussaint PA-C Unavailable Cr Fung MD Unavailable Bianca Rubalcava RN Unavailable [phone] Steven Tatum MD Unavailable Wm Ryan MD Unavailable [phone] Tatyana Dwyer MD Unavailable Amalia Agosto GC Unavailable [phone] Jaime Wood MD Unavailable Christen Gallardo MD Unavailable [phone] Ana Fink MD Unavailable Encounter Details Date Type Department Care Team (Late st Contact Info) Description 04/17/2021 [facility] [place] [address] [place] [address] Oneil Marin Social History Tobacco Use Types Packs/Day Years [...] PM CDT Legal Sex Male 3:08 AM CARE DIRECTOR Gender Identity Male 12/19/2020 9:52 PM CDT Sexual Orientation Straight 12/19/2020 9: 52 PM CDT COVID-19 Exposure Response Date Recorded In the last month, have you been in contact with someone who was confirmed or suspected to have Coronavirus / COVID-19? No / Unsure 04/17/2021 1:10 PM CDT documented as of this encounter Plan of Treatment Upcoming Encounters Date Type Department Care Team (Late st Contact Info) Description 08/18/2024 2:00 PM CARE DIRECTOR Virtual Visit [address] [phone] [place] [address] 11/20/2024 9:30 AM CDT Office Visit [address] [place] [phone] Tatyana Dwyer MD [address] [place] [address] documented as of this encounter Visit Diagnoses Not on filedocumented in this encounter Additional Health Concerns Infection Onset Date Last Indicated Resolved Time Rule Out COVID-19 10/25/2021 10/25/2021 10/26/2021 12:43 PM CDT COVID-19 10/25/2021 10/25/2021 11/15/2021 11:3 9 PM CDT documented as of this encounter Care Teams Sole Inker Relationship Specialty Start Date End Date Tatyana Dwyer MD [address] [place] [address] PCP - General Internal Medicine 06/01/19 Annalee Toussaint PA-C [address] [facility] [address] [place], [place] [address] Physician Corporate Travel Agent Physician Corporate Travel Agent - Medical 07/15/19 Cr Fung MD [address] [id number] Urology 07/15/19 Bianca Rubalcava, RODNEY Specialty Gallery Host Urology 07/15/19 [place] [address] [place] [address] 971629 Assigned Surgical Provider 04/08/20 07/22/21 Wm Ryan MD 420 [place], [place] 286645 Resident Student in organized health care education/training program 02/01/21 Tatyana Dwyer MD [address] [place] [address] Assigned PCP 02/05/21 Amalia Agosto GC 2450 [place], [place] 655474 Assigned OBGYN Provider 05/07/21 07/15/21 Jaime Wood MD [address] [facility] [address] [place], [place] [address] Assigned Sleep Provider 07/09/21 01/04/23 [place] [address] Assigned Endocrinology Provider 11/18/21 Ana Fink MD [address] [place] [address] Fellow Gastroenterology 10/16/22 documented as of this encounter
--- OUTSIDE RECORDS SUMMARY | 2024-07-16 16:27 | XMS_ITS | Encounter Summary ---
Author Organization [place] Address [address] [place] [address]. [place] [address] Care Team Providers Care Room Service Supervisor Name Role Phone Tatyana Dwyer MD Primary Care P rovider Annalee Toussaint PA-C Unavailable Cr Fung MD Unavailable [phone] Bianca Rubalcava RN Unavailable [phone] Steven Tatum MD Unavailable Wm Ryan MD Unavailable [phone] Tatyana Dwyer MD Unavailable Amalia Agosto GC Unavailable [phone] Jaime Wodo MD Unavailable [phone] Christen Gallardo MD Unavailable [phone] Ana Fink MD Unavailable Encounter Details Date Type Department Care Team (Late st Contact Info) Description 06/22/2021 MyC Medical Advice Initial Department Oneil Marin Social History Tobacco Use Types [...] PM CDT Legal Sex Male 3:08 AM SALES MANAGER Gender Identity Male 12/19/2020 9:52 PM CDT Sexual Orientation Straight 12/19/2020 9: 52 PM CDT documented as of this encounter Plan of Treatment Upcoming Encounters Date Type Department Care Team (Late st Contact Info) Description 08/18/2024 2:00 PM SALES MANAGER Virtual Visit [address] [place] [address] [place] [address] 11/20/2024 9:30 AM CDT Office Visit [facility] [address] [place] [phone] Tatyana Dwyer MD [address] [place] [address] documented as of this encounter Visit Diagnoses Not on filedocumented in this encounter Additional Health Concerns Infection Onset Date Last Indicated Resolved Time Rule Out COVID-19 10/25/2021 10/25/2021 10/26/2021 12:43 PM CDT COVID-19 10/25/2021 10/25/2021 11/15/2021 11:3 9 PM CDT documented as of this encounter Care Teams Room Service Supervisor Relationship Specialty Start Date End Date Tatyana Dwyer MD [address] [place], [place] [address]227 PCP - General Internal Medicine 06/01/19 Annalee Toussaint PA-C [address] [place], [place] [address] Physician Tire Retreader Physician Tire Retreader - Medical 07/15/19 Cr Fung MD 420 [facility] 394 [place], [place] [address] Urology 07/15/19 Bianca Rubalcava, RN Specialty Light Rail Train Operator Urology 07/15/19 [place] [address] [place] [address] 791539 Assigned Surgical Provider 04/08/20 07/22/21 Wm Ryan MD 420 [place] [address] Resident Student in organized health care education/training program 02/01/21 Tatyana Dwyer MD [address] [place] [address] Assigned PCP 02/05/21 Amalia Agosto GC 2450 [place] [address] Assigned OBGYN Provider 05/07/21 07/15/21 Jaime Wood MD [address] [facility] [address] [place], [place] 622535 Assigned Sleep Provider 07/09/21 01/04/23 Christen Gallardo MD [facility] [place], [place] [address] Assigned Endocrinology Provider 11/18/21 Ana Fink MD [address] [place] [address] Fellow Gastroenterology 10/16/22 documented as of this encounter
--- OUTSIDE RECORDS SUMMARY | 2024-07-16 16:27 | XMS_ITS | Encounter Summary ---
Author Organization [place] Address [address] [place] [address] Care Team Providers Care Figure Skater Name Role Phone Tatyana Dwyer MD Primary Care P rolorettader Tatyana Dwyer MD Unavailable Annalee Toussaint-C Unavailable Cr Fung MD Unavailable Bianca Rubalcava RN Unavailable [phone] Keegan Montemayor MD Unavailable Un available Joselin Andrade PA-C Unavailable [phone] Steven Tatum MD Unavailable Jim Mark MD Unavailable [phone] Jaime Wood MD Unavailable [phone] Annalee Toussaint-C Unavailable [phone] Honey Jackson APRN, CNP Unavailable [phone] Wm Ryan MD Unavailable Tatyana Dwyer MD Unavailable Amalia Agosto GC Unavailable [phone] Jaime Wood MD Unavailable [phone] Christen Gallardo MD Unavailable [phone] Ana Fink MD Unavailable Encounter Details Date Type Department Care Team (Late st Contact Info) Description 06/25/[address] [facility] [address] [facility] 140 [place] [phone] Keegan Montemayor MD Social History Tobacco Use [...] PM CDT Legal Sex Male 3:08 AM UNIT AID Gender Identity Male 12/19/2020 9:52 PM CDT Sexual Orientation Straight 12/19/2020 9: 52 PM CDT documented as of this encounter Plan of Treatment Upcoming Encounters Date Type Department Care Team (Late st Contact Info) Description 08/18/2024 2:00 PM UNIT AID Virtual Visit [address] [phone] Christen Gallardo MD [facility] [place] [address] 11/20/2024 9:30 AM CDT Office Visit [facility] [address] [place] [address] Tatyana Dwyer MD [address] [place] [address] documented as of this encounter Visit Diagnoses Not on filedocumented in this encounter Additional Health Concerns Infection Onset Date Last Indicated Resolved Time Rule Out COVID-19 10/25/2021 10/25/2021 10/26/2021 12:43 PM CDT COVID-19 10/25/2021 10/25/2021 11/15/2021 11:3 9 PM CDT documented as of this encounter Care Teams Figure Skater Relationship Specialty Start Date End Date Tatyana Dwyer MD [address] [place] [address] PCP - General Internal Medicine 06/01/19 Tatyana Dwyer MD [address] [place] [address] Assigned PCP 05/31/19 10/15/20 Annalee Toussaint PA-C [address] 4934[address] Physician Tank Truck Mechanic Physician Tank Truck Mechanic - Medical 07/15/19 Cr Fung MD 420 [facility] 394 [place], [place] 993415 Urology 07/15/19 Bianca Rubalcava, RN Specialty Package Drier Urology 07/15/19 Keegan Montemayor MD Assigned Heart and Vascular Provider 04/08/20 12/27/20 Joselin Andrade PA-C [address] [place] [address] Assigned Pediatric Specialist Provider 04/08/20 07/17/20 [place] [address] [facility] [place] [address] Assigned Surgical Provider 04/08/20 07/22/21 Jim [place] [address] [place] [address] Assigned Musculoskeletal Provider 04/08/20 02/11/21 Jaime Wood MD [address] [place] [address] Assigned Sleep Provider 04/08/2004/08 Annalee Toussaint PA-C [address] [place], [place] 521265 Assigned OBGYN Provider 08/31/20 1 Honey Jackson APRN [facility] [address] [place], [place] 390677 Assigned PCP 10/16/20 02/04/21 Wm Ryan MD 420 [place], [place] 308115 Resident Student in organized health care education/training program 02/01/21 Tatyana Dwyer MD [address] [place], [place] 203667 Assigned PCP 02/05/21 Amalia Agosto GC 2450 [place] [address] Assigned OBGYN Provider 05/07/21 07/15/21 Jaime Wood MD [address] [place] [address] Assigned Sleep Provider 07/09/21 [place] [address] Assigned Endocrinology Provider 11/18/21 Ana Fink MD [address] [place] [address] Fellow Gastroenterology 10/16/22 documented as of this encounter
--- OUTSIDE RECORDS SUMMARY | 2024-07-16 16:27 | XMS_ITS | Encounter Summary ---
Author Organization [place] Address [facility] [place] [address] Care Team Providers Care Work Over Rig Operator Name Role Phone Tatyana Dwyer MD Primary Care P rovider Annalee Toussaint-C Unavailable [phone] Cr Fung MD Unavailable [phone] Bianca Rubalcava RN Unavailable [phone] Wm Ryan MD Unavailable [phone] Tatyana Dwyer MD Unavailable Christen Gallardo MD Unavailable [phone] Ana Fink MD Unavailable Encounter Details Date Type Department Care Team (Late st Contact Info) Description 05/22/2023 [facility] Medical Advice [facility] Specialty [address] [address] Christen Gallardo MD [facility] [place] [address] Social History Tobacco Use Types [...] PM CDT Legal 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 Male 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 Gender Identity Male 12/19/2020 9:52 PM CDT Sexual Orientation Straight 12/19/2020 9: 52 PM CDT documented as of this encounter Plan of Treatment Upcoming Encounters Date Type Department Care Team (Late st Contact Info) Description 08/18/2024 2:00 PM PRINTING PRESS OPERATOR Virtual Visit [address] [place] [phone] [place] [address] 11/20/2024 9:30 AM CDT Office Visit [facility] [address] [place] [address] Tatyana Dwyer MD [address] [place], [place] 6[address] documented as of this encounter Visit Diagnoses Not on filedocumented in this encounter Care Teams Work Over Rig Operator Relationship Specialty Start Date End Date Tatyana Dwyer MD [address] [place], [place] 728287 PCP - General Internal Medicine 06/01/19 Annalee Toussaint PA-C [address] [address] Physician Scallop Cutter Physician Scallop Cutter - Medical 07/15/19 Cr Fung MD [address] [place] [address] 394 [place] [address] Urology 07/15/19 Bianca Rubalcava, RN Specialty Provider Engagement Executive Urology 07/15/19 Wm Ryan MD [address] [place] [address] 192375 Resident Student in organized health care education/training program 02/01/21 Tatyana Dwyer MD [address] [place], [place] 088237 Assigned PCP 02/05/21 Christen Gallardo MD [facility] [address] Assigned Endocrinology Provider 11/18/21 Ana Fink MD [address] [place] [address] Fellow Gastroenterology 10/16/22 documented as of this encounter
--- OUTSIDE RECORDS SUMMARY | 2024-07-16 16:27 | XMS_ITS | Encounter Summary ---
Author Organization [place] Address [facility] [address] Care Team Providers Care Manager Programs Name Role Phone Tatyana Dwyer MD Primary Care P rovider Annalee Toussaint-C Unavailable [phone] Cr Fung MD Unavailable Bianca Rubalcava RN Unavailable [phone] Wm Ryan MD Unavailable Tatyana Dwyer MD Unavailable Christen Gallardo MD Unavailable [phone] Ana Fink MD Unavailable Encounter Details Date Type Department Care Team (Late st Contact Info) Description 06/24/2023 [facility] [place] Medical Advice [facility] [address] [address] May Farah Social History Tobacco Use Types Packs/Day Years [...] PM CDT Legal Sex Male 3:08 AM TOP SPOTTER Gender Identity Male 12/19/2020 9:52 PM CDT Sexual Orientation Straight 12/19/2020 9: 52 PM CDT documented as of this encounter Plan of Treatment Upcoming Encounters Date Type Department Care Team (Late st Contact Info) Description 08/18/2024 2:00 PM TOP SPOTTER Virtual Visit [address] [place] [phone] Christen Gallardo MD [place], [place] [address] 11/20/2024 9:30 AM CDT Office Visit [facility] [address] [place] [phone] Tatyana Dwyer MD [address] [place], [place] 171277 documented as of this encounter Visit Diagnoses Not on filedocumented in this encounter Care Teams Manager Programs Relationship Specialty Start Date End Date Tatyana Dwyer MD [address] [place], [place] 065907 PCP - General Internal Medicine 06/01/19 Annalee Toussaint PA-C [address] [address] Physician Lens Polisher Physician Lens Polisher - Medical 07/15/19 Cr Fung MD [address] [place] [address] 394 [place] [address] Urology 07/15/19 Bianca Rubalcava, RN Specialty Supervisory Investigative Specialist Urology 07/15/19 Wm Ryan MD [address] [place] [address] 474475 Resident Student in [facility] health care education/training program 02/01/21 Tatyana Dwyer MD [address] [place], [place] 625627 Assigned PCP 02/05/21 Christen Gallardo MD [facility] [place], [place] [address] Assigned Endocrinology Provider 11/18/21 Ana Fink MD [address] [place] [address]755 Fellow Gastroenterology 10/16/22 documented as of this encounter
--- OUTSIDE RECORDS SUMMARY | 2024-07-16 16:27 | XMS_ITS | Encounter Summary ---
Author Organization [place] Address [address] [place] [address] Care Team Providers Care Emanations Analysis Technician Name Role Phone Tatyana Dwyer MD Primary Care P rovider Annalee ToussaintC Unavailable [phone] Cr Fung MD Unavailable Bianca Rubalcava RN Unavailable [phone] Wm Ryan MD Unavailable [phone] Tatyana Dwyer MD Unavailable Christen Gallardo MD Unavailable [phone] Ana Fink MD Unavailable Encounter Details Date Type Department Care Team (Late st Contact Info) Description 06/18/2023 [facility] [place] Medical Advice [facility] [address] [address] Jailyn Crawford Social History Tobacco Use Types Packs/Day Years [...] PM CDT Legal Sex Male 3:08 AM MANAGER LANGUAGE Gender Identity Male 12/19/2020 9:52 PM CDT Sexual Orientation Straight 12/19/2020 9: 52 PM CDT documented as of this encounter Plan of Treatment Upcoming Encounters Date Type Department Care Team (Late st Contact Info) Description 08/18/2024 2:00 PM MANAGER LANGUAGE Virtual Visit [facility] [address] [place] [address] [address] [place] [address] Christen Gallardo MD [place], [place] [address] 11/20/2024 9:30 AM CDT Office Visit [facility] [address] [facility] [address] [place] [phone] Tatyana Dwyer MD [address] [place], [place] 564067 documented as of this encounter Visit Diagnoses Not on filedocumented in this encounter Care Teams Emanations Analysis Technician Relationship Specialty Start Date End Date Tatyana Dwyer MD [address] [place], [place] 033367 PCP - General Internal Medicine 06/01/19 Annalee Toussaint PA-C 6363 [facility] 500 [place] [address] Physician Bailer Tenders Supervisor Physician Bailer Tenders Supervisor - Medical 07/15/19 Cr Fung MD 420 [facility] 394 [place] [address] Urology 07/15/19 Bianca Rubalcava, RN Specialty Tire Worker Urology 07/15/19 Wm Ryan MD [address] [place] [address]16615 Resident Student in [facility] health care education/training program 02/01/21 Tatyana Dwyer MD [address] [place], [place] 973687 Assigned PCP 02/05/21 Christen Gallardo MD [facility] [place], [place] [address] Assigned Endocrinology Provider 11/18/21 Ana Fink MD [address] [place] [address] 613775 Fellow Gastroenterology 10/16/22 documented as of this encounter
--- OUTSIDE RECORDS SUMMARY | 2024-07-16 16:27 | XMS_ITS | Encounter Summary ---
Author Organization [place] Address [address] [place] [address] Care Team Providers Care Licensed Investment Sales Assistant Name Role Phone Tatyana Dwyer MD Primary Care P rovider Annalee ToussaintC Unavailable [phone] Cr Fung MD Unavailable [phone] Bianca Rubalcava RN Unavailable [phone] Wm Ryan MD Unavailable [phone] Tatyana Dwyer MD Unavailable Christen Gallardo MD Unavailable [phone] Ana Fink MD Unavailable Encounter Details Date Type Department Care Team (Late st Contact Info) Description 06/18/2023 [facility] [place] [facility] [address] [address] Jailyn Crawford Social History Tobacco [...] PM CDT Legal Sex Male 3:08 AM POULTRY PACKER Gender Identity Male 12/19/2020 9:52 PM CDT Sexual Orientation Straight 12/19/2020 9: 52 PM CDT documented as of this encounter Plan of Treatment Upcoming Encounters Date Type Department Care Team (Late st Contact Info) Description 08/18/2024 2:00 PM POULTRY PACKER Virtual Visit [facility] [address] [place] [address] [address] [place] [phone] Christen Gallardo MD [place], [place] [address] 11/20/2024 9:30 AM CDT Office Visit [facility] 303 [facility] [address] [place] [phone] Tatyana Dwyer MD [address] [place], [place] [address]127 documented as of this encounter Visit Diagnoses Not on filedocumented in this encounter Care Teams Licensed Investment Sales Assistant Relationship Specialty Start Date End Date Tatyana Dwyer MD [address] [place], [place] 472357 PCP - General Internal Medicine 06/01/19 Annalee Toussaint PA-C 6363 [facility] 500 [place] [address] Physician Shot Lighter Physician Shot Lighter - Medical 07/15/19 Cr Fung MD 420 [facility] 394 [place] [address] Urology 07/15/19 Bianca Rubalcava, RN Specialty Guest Service Team Leader Urology 07/15/19 Wm Ryan MD [address] [place] [address]26[address] Resident Student in [facility] health care education/training program 02/01/21 Tatyana Dwyer MD [address] [place], [place] 867297 Assigned PCP 02/05/21 Christen Gallardo MD [facility] [place], [place] [address] Assigned Endocrinology Provider 11/18/21 Ana Fink MD [address] [place] [address] Fellow Gastroenterology 10/16/22 documented as of this encounter
--- OUTSIDE RECORDS SUMMARY | 2024-07-16 16:27 | XMS_ITS | Encounter Summary ---
Author Organization [place] Address [facility] [place] [address] Care Team Providers Care Booster Station Operator Name Role Phone Tatyana Dwyer MD Primary Care P rovider Annalee Toussaint-C Unavailable [phone] Cr Fung MD Unavailable Bianca Rubalcava RN Unavailable [phone] Steven Tatum MD Unavailable Wm Ryan MD Unavailable Tatyana Dwyer MD Unavailable Amalia Agosto GC Unavailable [phone] Jaime Wood MD Unavailable Christen Gallardo MD Unavailable [phone] Ana Fink MD Unavailable Reason for Visit * Reason Onset Date Comments Call Back 04/14/2021 Encounter Details Date Type Department Care Team (Late st Contact Info) Description 04/14/2021 Telephone [facility] [place] [address] [facility] 103 [place] [address] Jaime Wood MD 1063 [facility] 103 [place] [address] Call Back Social History Tobacco Use Types [...] PM CDT Legal Sex Male 3:08 AM CLINICAL SERVICES SPECIALIST Gender Identity Male 12/19/2020 9:52 PM CDT Sexual Orientation Straight 12/19/2020 9: 52 PM CDT COVID-19 Exposure Response Date Recorded In the last month, have you been in contact with someone who was confirmed or suspected to have Coronavirus / COVID-19? No / Unsure 04/17/2021 1:10 PM CDT documented as of this encounter Miscellaneous Notes * Telephone Encounter - Sophia Espinal - 04/14/2021 8:45 AM CDT Reason for call: Other Patient called regarding (reason for call): call back Additional comments: per patient, he will like to be called back to schedule home sleep study . Phone number to reach patient: Home number on file [phone] (home) Best Time: Anytime Can we leave a detailed message on this number? NO Travel screening: Not Applicable documented in this encounter Plan of Treatment Upcoming Encounters Date Type Department Care Team (Late st Contact Info) Description 08/18/2024 2:00 PM CLINICAL SERVICES SPECIALIST Virtual Visit [facility] Specialty [place] [address] [place] [phone] Christen Gallardo MD [facility] [place] [address] 11/20/2024 9:30 AM CDT Office Visit [facility] [address] [place] [phone] Tatyana Dwyer MD [address] [place], [place] [address] documented as of this encounter Visit Diagnoses Not on filedocumented in this encounter Additional Health Concerns Infection Onset Date Last Indicated Resolved Time Rule Out COVID-19 10/25/2021 10/25/2021 10/26/2021 12:43 PM CDT COVID-19 10/25/2021 10/25/2021 11/15/2021 11:3 9 PM CDT documented as of this encounter Care Teams Booster Station Operator Relationship Specialty Start Date End Date Tatyana Dwyer MD [address] [place] [place], [place] [address] PCP - General Internal Medicine 06/01/19 Annalee Toussaint, PAMarianaC [address] 3[address] Physician Stock Supervisor Physician Stock Supervisor - Medical 07/15/19 Cr Fung MD [address] [place] [address] 394 [place], [place] 5220[address] Urology 07/15/19 Bianca Rubalcava, RN Specialty Bag Machine Set Up Operator Urology 07/15/19 [place] [address] [place] [address] Assigned Surgical Provider 04/08/20 07/22/21 Wm Ryan MD 420 [place] [address] Resident Student in organized health care education/training program 02/01/21 Tatyana Dwyer MD [address] [place] [address] Assigned PCP 02/05/21 Amalia Agosto GC 2450 [place] [address] Assigned OBGYN Provider 05/07/21 07/15/21 Jaime Wood MD [address] [address] Assigned Sleep Provider 07/09/21 01/04/23 [place] [address] Assigned Endocrinology Provider 11/18/21 Ana Fink MD 420 [place] [address] Fellow Gastroenterology 10/16/22 documented as of this encounter
--- OUTSIDE RECORDS SUMMARY | 2024-07-16 16:27 | XMS_ITS | Encounter Summary ---
Author Organization [place] Address [address] [place] [address] Care Team Providers Care Swiss Type Screw Machine Operator Name Role Phone Tatyana Dwyer MD Primary Care P rolorettader Tatyana Dwyer MD Unavailable Annalee Toussaint PA-C Unavailable [phone] Cr Fung MD Unavailable [phone] Bianca Rubalcava RN Unavailable [phone] Keegan Montemayor MD Unavailable Un available Steven Tatum MD Unavailable Jim Mark MD Unavailable Jaime Wood MD Unavailable [phone] Annalee Toussaint PA-C Unavailable [phone] Honey Jackson APRN, CNP Unavailable + [phone] Wm Ryan MD Unavailable [phone] Tatyana Dwyer MD Unavailable Amalia Agosto GC Unavailable [phone] Jaime Wood MD Unavailable [phone] Christen Gallardo MD Unavailable [phone] Ana Fink MD Unavailable Encounter Details Date Type Department Care Team (Late st Contact Info) Description 08/29/2020 MyC Medical Advice [facility] [address] [facility] [address] [place] [phone] Lucinda Alaniz MA Social History Tobacco Use Types Packs/Day Years [...] PM CDT Legal Sex Male 3:08 AM CANE WEIGHER Gender Identity Male 12/19/2020 9:52 PM CDT Sexual Orientation Straight 12/19/2020 9: 52 PM CDT COVID-19 Exposure Response Date Recorded In the last month, have you been in contact with someone who was confirmed or suspected to have Coronavirus / COVID-19? No / Unsure 08/23/2020 12:45 PM CANE WEIGHER documented as of this encounter Plan of Treatment Upcoming Encounters Date Type Department Care Team (Late st Contact Info) Description 08/18/2024 2:00 PM CANE WEIGHER Virtual Visit [address] [phone] Christen Gallardo MD [facility] [place], [place] [address] 11/20/2024 9:30 AM CDT Office Visit [place] [address] [place] [phone] Tatyana Dwyer MD [facility] [place] [address] documented as of this encounter Visit Diagnoses Not on filedocumented in this encounter Additional Health Concerns Infection Onset Date Last Indicated Resolved Time Rule Out COVID-19 10/25/2021 10/25/2021 10/26/2021 12:43 PM CDT COVID-19 10/25/2021 10/25/2021 11/15/2021 11:3 9 PM CDT documented as of this encounter Care Teams Swiss Type Screw Machine Operator Relationship Specialty Start Date End Date Tatyana Dwyer MD [address] [place], [place] [address] PCP - General Internal Medicine 06/01/19 Tatyana Dwyer MD [address] [place] [address] Assigned PCP 05/31/19 10/15/20 Annalee Toussaint PAMarianaC [address] [address] Physician Track Patrol Physician Track Patrol - Medical 07/15/19 Cr Fung MD [address] [place] [address] 394 [place], [place] 498575 Urology 07/15/19 Bianca Rubalcava, RN Specialty Investment Advisor Urology 07/15/19 Keegan Montemayor MD Assigned Heart and Vascular Provider 04/08/20 12/27/20 [place] [address] [place] [address] Assigned Surgical Provider 04/08/20 07/22/21 Jim Mark MD [address] [place] [address] 561715 Assigned Musculoskeletal Provider 04/08/20 02/11/21 Jaime Wood MD [address] [place] [address] Assigned Sleep Provider 04/08/2004/08 Annalee Toussaint PA-C [address] [place], [place] [address] Assigned OBGYN Provider 08/31/20 1 Honey Jackson APRN CNP [address] [place], [place] 212517 Assigned PCP 10/16/20 02/04/21 Wm Ryan MD [address] [place], [place] 8[address]645 Resident Student in organized health care education/training program 02/01/21 Tatyana Dwyer MD [address] [place] [address] Assigned PCP 02/05/21 Amalia Agosto GC [address] [place], [place] 194954 Assigned OBGYN Provider 05/07/21 07/15/21 Jaime Wood MD [address] [place] [address]145 Assigned Sleep Provider 07/09/21 [place] [address] Assigned Endocrinology Provider 11/18/21 Ana Fink MD [address] [place] [address] Fellow Gastroenterology 10/16/22 documented as of this encounter
--- OUTSIDE RECORDS SUMMARY | 2024-07-16 16:27 | XMS_ITS | Encounter Summary ---
Author Organization [place] Address [address] [place] [address] Care Team Providers Care Wedding Planner Name Role Phone Tatyana Dwyer MD Primary Care P rolorettader Tatyana Dwyer MD Unavailable Annalee Toussaint PA-C Unavailable [phone] Cr Fung MD Unavailable [phone] Bianca Rubalcava RN Unavailable [phone] Keegan Montemayor MD Unavailable Un available Steven Tatum MD Unavailable Jim Mark MD Unavailable Jaime Wood MD Unavailable Annalee Toussaint PA-C Unavailable [phone] Honey Jackson APRN, CNP Unavailable + [phone] Wm Ryan MD Unavailable Tatyana Dwyer MD Unavailable Amalia Agosto GC Unavailable [phone] Jaime Wood MD Unavailable [phone] Christen Gallardo MD Unavailable [phone] Ana Fink MD Unavailable Reason for Visit * Reason Onset Date Comments Refill Request 10/03/2020 nebivolol (BYSTO LIC) 2.5 MG tablet Encounter Details Date Type Department Care Team (Late Contact Info) Description 10/03/2020 Refill [facility] [address] [facility] [address] [place] [phone] Tatyana Dwyer MD [address] [place] [address] Refill Request (nebivolol (BYSTOLIC) 2.5 MG tablet) Social History Tobacco Use Types Packs/Day Years [...] PM CDT Legal Sex Male 3:08 AM BUSINESS DEVELOPMENT INTERN Gender Identity Male 12/19/2020 9:52 PM CDT Sexual Orientation Straight 12/19/2020 9: 52 PM CDT documented as of this encounter Miscellaneous Notes * Telephone Encounter - Barbara Ambrose RN - 10/05/2020 3:18 PM CDT Medication refill denied, previously sent to different [facility] location. Should be available refill on file. documented in this encounter Plan of Treatment Upcoming Encounters Date Type Department Care Team ([facility] Contact Info) Description 08/18/2024 2:00 PM BUSINESS DEVELOPMENT INTERN Virtual Visit [address] [place] [phone] Christen Gallardo MD [facility] [place] [address] 11/20/2024 9:30 AM CDT Office Visit [facility] [address] [place] [phone] Tatyana Dwyer MD [address] [place], [place] [address]77 documented as of this encounter Visit Diagnoses Diagnosis Tachycardia Tachycardia, unspecified HTN, goal below 140/90 Unspecified essential hypertension documented in this encounter Additional Health Concerns Infection Onset Date Last Indicated Resolved Time Rule Out COVID-19 10/25/2021 10/25/2021 10/26/2021 12:43 PM CDT COVID-19 10/25/2021 10/25/2021 11/15/2021 11:3 9 PM CDT documented as of this encounter Care Teams Wedding Planner Relationship Specialty Start Date End Date Tatyana Dwyer MD [address] [place], [place] 419767 PCP - General Internal Medicine 06/01/19 Tatyana Dwyer MD [address] [place], [place] [address] Assigned PCP 05/31/19 10/15/20 Annalee Toussaint PA-C [address] [address] Physician Complaint Inspector Physician Complaint Inspector - Medical 07/15/19 Cr Fung MD [address] [place] [address]245 Urology 07/15/19 Bianca Rubalcava, RN Specialty Digital Sales Manager Urology 07/15/19 Keegan Montemayor MD Assigned Heart and Vascular Provider 04/08/20 12/27/20 [place] [address] [place], [place] [address] Assigned Surgical Provider 04/08/20 07/22/21 Jim Mark MD [address] [place], [place] [address] Assigned Musculoskeletal Provider 04/08/20 02/11/21 Jaime Wood MD [address] [place] [address] Assigned Sleep Provider 04/08/2004/08 Annalee Toussaint, DUSTYC [address] [place], [place] [address] Assigned OBGYN Provider 08/31/20 1 Honey Jackson APRN MILEAGE CLERK [address] [place], [place] [address] Assigned PCP 10/16/20 02/04/21 Wm Ryan MD [address] [place] [address] 432815 Resident Student in organized health care education/training program 02/01/21 Tatyana Dwyer MD [address] [place] [address] Assigned PCP 02/05/21 Amalia Agosto GC [address] [place] [address] Assigned OBGYN Provider 05/07/21 07/15/21 Jaime Wood MD [address] [address] Assigned Sleep Provider 07/09/21 Christen Gallardo [place] [address] Assigned Endocrinology Provider 11/18/21 Ana Fink MD [address] [place] [address] Fellow Gastroenterology 10/16/22 documented as of this encounter
--- OUTSIDE RECORDS SUMMARY | 2024-07-16 16:27 | XMS_ITS | Encounter Summary ---
Author Organization [place] Address [address] [place] [address] Care Team Providers Care Maintenance Shop Technician Name Role Phone Tatyana Dwyer MD Primary Care P rovider Annalee Toussaint PA-C Unavailable [phone] Cr Fung MD Unavailable Bianca Rubalcava RN Unavailable [phone] Wm Ryan MD Unavailable Tatyana Dwyer MD Unavailable Christen Gallardo MD Unavailable [phone] Ana Fink MD Unavailable Reason for Referral * Consultation (Routine: Next available opening) - Closed Specialty Diagnoses / Procedures Referred By Contdonte t Referred To Contact Diagnoses Family history of colon cancer Manish Ryan MD [facility] GASTRO[facility]TEST[facility]AL [address] [place] [address] Phone: tel: fax: Referral ID Status Reason Start Date Expiration Date Visits Re quested Visits Authorized [id number] Closed 06/14/2023 06/13/2024 1 1 Question Answer Service: Screening Sedation Concerns: No medical conditions affecting sedation Sedation Type: Moderate/Conscious Sedation Preferred Location: [facility] Scheduling Instructions: [facility] will call you to coordinate your care as prescribed by the provider. If you don t hear from a retail account representative within 2 business days, please call . Comments Please be aware that coverage of these services is subject to the terms and limitations of your health insurance plan. Call member services at your health plan with any benefit or coverage questions. [facility] will call you to coordinate your care as prescribed by the provider. If you don t hear from a retail account representative within 2 business days, please call . NE FIREFIGHTER Encounter Details Date Type Department Care Team (Late st Contact Info) Description 06/14/2023 Orders Only [address] [address] Manish Ryan MD [facility] [address] [place] [address] Family history of colon cancer (Primary Dx) Social History Tobacco Use Types Packs/Day Years [...] PM CDT Legal Sex Male 3:08 AM MARINE FIREFIGHTER Gender Identity Male 12/19/2020 9:52 PM CDT Sexual Orientation Straight 12/19/2020 9: 52 PM CDT documented as of this encounter Plan of Treatment Upcoming Encounters Date Type Department Care Team (Late st Contact Info) Description 08/18/2024 2:00 PM MARINE FIREFIGHTER Virtual Visit [facility] [address] [place] [address] [address] [place] [phone] [place] [address] 11/20/2024 9:30 AM CDT Office Visit [facility] [address] [place] [phone] Tatyana Dwyer MD [address] [place], [place] [address] Scheduled Referrals Name Type Priority Associated Diagnoses Order Schedule Colonoscopy Screening Edge Setter Referral Referral Routine: Next available opening Family history of colon cancer Expected: 06/14/2023 (Approximate), Expires: 06/14/2024 documented as of this encounter Visit Diagnoses Diagnosis Family history of colon cancer- Primary Family history of malignant neoplasm of gastrointestinal tract documented in this encounter Care Teams Maintenance Shop Technician Relationship Specialty Start Date End Date Tatyana Dwyer MD [address] [place], [place] [address] PCP - General Internal Medicine 06/01/19 Annalee Toussaint, DUSTYC [address] [facility] 500 [place], [place] [address] Physician Hand Paint Mixer Physician Hand Paint Mixer - Medical 07/15/19 Cr Fung MD [address] [place] [address] 394 [place], [place] [address] Urology 07/15/19 Bianca Rubalcava, RN Specialty Hse Manager Urology 07/15/19 Wm Ryan MD [address] [place] [address] Resident Student in organized health care education/training program 02/01/21 Tatyana Dwyer MD [address] [place] [address] Assigned PCP 02/05/21 [place] [address] Assigned Endocrinology Provider 11/18/21 Ana Fink MD [address] [place] [address] Fellow Gastroenterology 10/16/22 documented as of this encounter
--- OUTSIDE RECORDS SUMMARY | 2024-07-16 16:27 | XMS_ITS | Encounter Summary ---
Author Organization [place] Address [address] [place] [address]. [place] [address] Care Team Providers Care Government Auditor Name Role Phone Tatyana Dwyer MD Primary Care P rovider Annalee Toussaint-C Unavailable [phone] Cr Fung MD Unavailable [phone] Bianca Rubalcava RN Unavailable [phone] Wm Ryan MD Unavailable Tatyana Dwyer MD Unavailable Christen Gallardo MD Unavailable [phone] Ana Fink MD Unavailable Encounter Details Date Type Department Care Team (Late st Contact Info) Description 04/03/2023 [facility] [address] [address] [facility] Social History Tobacco Use Types Packs/Day Years [...] PM CDT Legal Sex Male 3:08 AM TOWEL STRETCHER Gender Identity Male 12/19/2020 9:52 PM CDT [...] st Contact Info) Description 08/18/2024 2:00 PM TOWEL STRETCHER Virtual Visit [address] [phone] [place] [address] 11/20/2024 9:30 AM CDT Office Visit [address] [place] [phone] Tatyana Dwyer MD [address] [place], [place] 1585[address] documented as of this encounter Visit Diagnoses Not on filedocumented in this encounter Care Teams Government Auditor Relationship Specialty Start Date End Date Tatyana Dwyer MD [address] [place], [place] 3049[address] PCP - General Internal Medicine 06/01/19 Annalee Toussaint PA-C [address] [address] Physician Embedded Case Manager Physician Embedded Case Manager - Medical 07/15/19 Cr Fung MD [address] [place] [address] [address] [place] [address] Urology 07/15/19 Bianca Rubalcava, RODNEY Specialty Executive Community Planning Urology 07/15/19 Wm Ryan MD [address] [place] [address] Resident Student in [facility] health care education/training program 02/01/21 Tatayna Dwyer MD [address] [place], [place] 235417 Assigned PCP 02/05/21 Christen Gallardo MD [facility] [place] [address] Assigned Endocrinology Provider 11/18/21 Ana Fink MD [address] [place] [address] Fellow Gastroenterology 10/16/22 documented as of this encounter
--- OUTSIDE RECORDS SUMMARY | 2024-07-16 16:27 | XMS_ITS | Encounter Summary ---
Author Organization [place] Address [address] [place] [address] Care Team Providers Care Staff Analyst Name Role Phone Tatyana Dwyer MD Primary Care P rolorettader Tatyana Dwyer MD Unavailable Annalee Toussaint-C Unavailable Cr Fung MD Unavailable Bianca Rubalcava RN Unavailable [phone] Keegna Montemayor MD Unavailable Un available Joselin Andrade PA-C Unavailable Steven Tatum MD Unavailable Jim Mark MD Unavailable [phone] Jaime Wood MD Unavailable [phone] Annalee Toussaint-C Unavailable [phone] Honey Jackson APRN, CNP Unavailable + [phone] Wm Ryan MD Unavailable Tatyana Dwyer MD Unavailable Amalia Agosto GC Unavailable [phone] Jaime Wood MD Unavailable [phone] Christen Gallardo MD Unavailable [phone] Ana Fink MD Unavailable Encounter Details Date Type Department Care Team (Late st Contact Info) Description 06/26/2019 MyC Medical Advice [facility] Urology [facility] [address] [facility] [address] [place] [phone] Annalee Toussanit, PA-C 6[address] [facility] 500 [place] [address] Social History Tobacco Use Types Packs/Day Years [...] PM CDT Legal Sex Male 3:08 AM COMMUTATOR PRESSER Gender Identity Male 12/19/2020 9:52 PM CDT Sexual Orientation Straight 12/19/2020 9: 52 PM CDT documented as of this encounter Plan of Treatment Upcoming Encounters Date Type Department Care Team (Late st Contact Info) Description 08/18/2024 2:00 PM COMMUTATOR PRESSER Virtual Visit [facility] Specialty [facility] [address] [place] [address] 200 [place] [phone] Christen Gallardo MD [place] [address] 11/20/2024 9:30 AM CDT Office Visit [address] [place] [phone] Tatyana Dwyer MD [address] [place] [address] documented as of this encounter Visit Diagnoses Not on filedocumented in this encounter Additional Health Concerns Infection Onset Date Last Indicated Resolved Time Rule Out COVID-19 10/25/2021 10/25/2021 10/26/2021 12:43 PM CDT COVID-19 10/25/2021 10/25/2021 11/15/2021 11:3 9 PM CDT documented as of this encounter Care Teams Staff Analyst Relationship Specialty Start Date End Date Tatyana Dwyer MD [address] [place], [place] [address] PCP - General Internal Medicine 06/01/19 Tatyana Dwyer MD [address] [place] [address] Assigned PCP 05/31/19 10/15/20 Annalee Toussaint PA-C [address] 7[address] Physician Screen Printing Supervisor Physician Screen Printing Supervisor - Medical 07/15/19 Cr Fung MD [address] [place] [address] 217515 Urology 07/15/19 Bianca Rubalcava, RN Specialty Rn Chronic Urology 07/15/19 Keegan Montemayor MD Assigned Heart and Vascular Provider 04/08/20 12/27/20 Joselin Andrade PA-C [address] [place] [address] Assigned Pediatric Specialist Provider 04/08/20 07/17/20 [place] [address] [place] [address] 262439 Assigned Surgical Provider 04/08/20 07/22/21 Jim Mark MD [address] [place] [address]245 Assigned Musculoskeletal Provider 04/08/20 02/11/21 Jaime Wood MD [address] [facility] [address] [place] [address] Assigned Sleep Provider 04/08/2004/08 Annalee Toussaint, PAMarianaC [address] [place], [place] [address] Assigned OBGYN Provider 08/31/20 1 Honey Jackson APRN [facility] [address] [place], [place] 5[address] Assigned PCP 10/16/20 02/04/21 Wm Ryan MD [address] [place] [address] 888945 Resident Student in organized health care education/training program 02/01/21 Tatyana Dwyer MD [address] [place] [address] Assigned PCP 02/05/21 Amalia Agosto GC [address] [place] [address] Assigned OBGYN Provider 05/07/21 07/15/21 Jaime Wood MD [address] [address] Assigned Sleep Provider 07/09/21 Christen Gallardo [place] [address] Assigned Endocrinology Provider 11/18/21 Ana Fink MD [address] [place] [address] Fellow Gastroenterology 10/16/22 documented as of this encounter
--- OUTSIDE RECORDS SUMMARY | 2024-07-16 16:28 | XMS_ITS | Encounter Summary ---
Author Organization [place] Address [address] [place] [address] Care Team Providers Care Sausage Meat Trimmer Name Role Phone Tatyana Dwyer MD Primary Care P rolorettader Tatyana Dwyer MD Unavailable Annalee Toussaint-C Unavailable Cr Fung MD Unavailable Bianca Rubalcava RN Unavailable [phone] Keegan Montemayor MD Unavailable Un available Joselin Andrade PA-C Unavailable [phone] Steven Tatum MD Unavailable Jim Mark MD Unavailable [phone] Jaime Wood MD Unavailable [phone] Annalee Toussaint-C Unavailable [phone] Honey Jackson APRN, CNP Unavailable + [phone] Wm Ryan MD Unavailable [phone] Tatyana Dwyer MD Unavailable Amalia Agosto GC Unavailable Jaime Wood MD Unavailable [phone] Christen Gallardo MD Unavailable [phone] Ana Fink MD Unavailable Encounter Details Date Type Department Care Team (Late st Contact Info) Description 10/02/2019 MyC Medical Advice [place] [phone] [place] [phone] LuanRachel candelario Social History Tobacco Use Types Packs/Day Years [...] PM CDT Legal Sex Male 3:08 AM HOISTING PILE DRIVING ENGINEER Gender Identity Male 12/19/2020 9:52 PM CDT Sexual Orientation Straight 12/19/2020 9: 52 PM CDT documented as of this encounter Plan of Treatment Upcoming Encounters Date Type Department Care Team (Late st Contact Info) Description 08/18/2024 2:00 PM HOISTING PILE DRIVING ENGINEER Virtual Visit [address] [place] [phone] [place] [address] 11/20/2024 9:30 AM CDT Office Visit [place] [address] [place] [address] Tatyana Dwyer MD [address] [place] [address] documented as of this encounter Visit Diagnoses Not on filedocumented in this encounter Additional Health Concerns Infection Onset Date Last Indicated Resolved Time Rule Out COVID-19 10/25/2021 10/25/2021 10/26/2021 12:43 PM CDT COVID-19 10/25/2021 10/25/2021 11/15/2021 11:3 9 PM CDT documented as of this encounter Care Teams Sausage Meat Trimmer Relationship Specialty Start Date End Date Tatyana Dwyer MD [address] [place] [address] PCP - General Internal Medicine 06/01/19 Tatyana Dwyer MD [address] [place] [address] Assigned PCP 05/31/19 10/15/20 Annalee Toussaint PA-C [address] 352765 Physician Head Waitress Physician Head Waitress - Medical 07/15/19 Cr Fung MD 420 [facility] 394 [place], [place] [address] Urology 07/15/19 Bianca Rubalcava, RN Specialty Director Of Perioperative Services Urology 07/15/19 Keegan Montemayor MD Assigned Heart and Vascular Provider 04/08/20 12/27/20 Joselin Andrade PA-C [address] [place] [address] Assigned Pediatric Specialist Provider 04/08/20 07/17/20 [place] [address] [facility] [place] [address] Assigned Surgical Provider 04/08/20 07/22/21 Jim Mark MD [address] [place] [address] Assigned Musculoskeletal Provider 04/08/20 02/11/21 Jaime Wood MD [address] [place] [address] Assigned Sleep Provider 04/08/2004/08 Annalee Toussaint PA-C [address] [place], [place] [address] Assigned OBGYN Provider 08/31/20 1 Honey Jackson APRN [facility] [address] [place], [place] 293887 Assigned PCP 10/16/20 02/04/21 Wm Ryan MD [address] [place], [place] [address]85 Resident Student in organized health care education/training program 02/01/21 Tatyana Dwyer MD [address] [place], [place] [address]507 Assigned PCP 02/05/21 Amalia Agosto GC [address]50 [place] [address] Assigned OBGYN Provider 05/07/21 07/15/21 Jaime Wood MD [address] [place] [address] Assigned Sleep Provider 07/09/21 [place] [address] Assigned Endocrinology Provider 11/18/21 Ana Fink MD [address] [place] [address] Fellow Gastroenterology 10/16/22 documented as of this encounter
--- OUTSIDE RECORDS SUMMARY | 2024-07-16 16:28 | XMS_ITS | Encounter Summary ---
Author Organization [place] Address [facility] [place] [address] Care Team Providers Care Correctional Program Specialist Name Role Phone Tatyana Dwyer MD Primary Care P rovider Annalee Toussaint PA-C Unavailable [phone] Cr Fung MD Unavailable Bianca Rubalcava RN Unavailable [phone] Wm Ryan MD Unavailable [phone] Tatyana Dwyer MD Unavailable Christen Gallardo MD Unavailable [phone] Ana Fink MD Unavailable Encounter Details Date Type Department Care Team (Late st Contact Info) Description 02/10/2024 MyC Medical Advice [facility] [address] [address] May Farah Social History Tobacco [...] re latives? Twice a week 11/16/2023 Attends [employer]oration[employer] Services Not on file 11/15 Active Member [...] Answer Date Recorded PHQ-2 Score 0 11/21/2023 [facility] of Occupat ional Health - Occupational Stress [...] Answer Date Recorded Do you have housing? (Housin g is defined as stable permanent housing and does not include staying ouside in a car, in a tent, in an abandoned building, in an overnight correction, or couch-surfing.) Yes 11/16/2023 Are you worried [...] PM CDT Legal Sex Male 3:08 AM CABIN CREW Gender Identity Male 12/19/2020 9:52 PM CDT Sexual Orientation Straight 12/19/2020 9: 52 PM CDT documented as of this encounter Plan of Treatment Upcoming Encounters Date Type Department Care Team (Late st Contact Info) Description 08/18/2024 2:00 PM CABIN CREW Virtual Visit [address] [place] [phone] Christen Gallardo MD [place], [place] [id number] 11/20/2024 9:30 AM CDT Office Visit [address] [place] [address] [place] [address] Tatyana Dwyer MD [address] [place], [place] [address] documented as of this encounter Visit Diagnoses Not on filedocumented in this encounter Care Teams Correctional Program Specialist Relationship Specialty Start Date End Date Tatyana Dwyer MD [address] [place], [place] [phone] PCP - General Internal Medicine 06/01/19 Annalee Toussaint PA-C [address] [place] [address] Physician Drafter Civil Engineering Physician Drafter Civil Engineering - Medical 07/15/19 Cr Fung MD [address] [place] [address] [address] [place] [address] Urology 07/15/19 Bianca Rubalcava, RODNEY Specialty Pyrometer Operator Urology 07/15/19 Wm Ryan MD [address] [place] [address] Resident Student in organized health care education/training program 02/01/21 Tatyana Dwyer MD [address] [place] [address] Assigned PCP 02/05/21 [place] [address] Assigned Endocrinology Provider 11/18/21 Ana Fink MD [address] [place] [address] Fellow Gastroenterology 10/16/22 documented as of this encounter
--- OUTSIDE RECORDS SUMMARY | 2024-07-16 16:28 | XMS_ITS | Encounter Summary ---
Author Organization [place] Address [facility] [place] [address] Care Team Providers Care Plugging Machine Operator Name Role Phone Tatyana Dwyer MD Primary Care P rovider Annalee Toussaint PA-C Unavailable [phone] Cr Fung MD Unavailable Bianca Rubalcava RN Unavailable [phone] Wm Ryan MD Unavailable Tatynaa Dwyer MD Unavailable Christen Gallardo MD Unavailable [phone] Ana Fink MD Unavailable Encounter Details Date Type Department Care Team (Late st Contact Info) Description 06/30/2024 [facility] Medical Advice [facility] Specialty [address] [address] Christen Gallardo [place] [address] Social History Tobacco Use Types [...] re latives? Twice a week 11/16/2023 Attends [employer] Services Not on file 11/15 Active Member [...] Answer Date Recorded PHQ-2 Score 0 11/21/2023 [facility] of Occupat ional Health - Occupational Stress [...] in an abandoned building, in an overnight assisted, or couch-surfing.) Yes 11/16/2023 Are you worried [...] PM CDT Legal Sex Male 3:08 AM STITCHER HAND Gender Identity Male 12/19/2020 9:52 PM CDT Sexual Orientation Straight 12/19/2020 9: 52 PM CDT documented as of this encounter Plan of Treatment Upcoming Encounters Date Type Department Care Team (Late st Contact Info) Description 08/18/2024 2:00 PM STITCHER HAND Virtual Visit [address] [phone] [place] [address] 11/20/2024 9:30 AM CDT Office Visit [address] [place] [address] [place] [address] Tatyana Dwyer MD [facility] [place], [place] [address] documented as of this encounter Visit Diagnoses Not on filedocumented in this encounter Care Teams Plugging Machine Operator Relationship Specialty Start Date End Date Tatyana Dwyer MD [facility] [place] [address] PCP - General Internal Medicine 06/01/19 Annalee Toussaint PA-C [address] [address] [address] Engineer Physician Road Engineer - Medical 07/15/19 Cr Fung MD [address] [place] [address] Urology 07/15/19 Bianca Rubalcava, RODNEY Specialty Pipeline Maintenance Supervisor Urology 07/15/19 Wm Ryan MD [address] [place] [phone] Resident Student in organized health care education/training program 02/01/21 Tatyana Dwyer MD [address] [place], [place] [address] Assigned PCP 02/05/21 Christen [place] [address] Assigned Endocrinology Provider 11/18/21 Ana Fink MD [address] [place] [phone] Fellow Gastroenterology 10/16/22 documented as of this encounter
--- OUTSIDE RECORDS SUMMARY | 2024-07-16 16:28 | XMS_ITS | Encounter Summary ---
Author Organization [place] Address [address] [place] [address] Care Team Providers Care Snaker Name Role Phone Tatyana Dwyer MD Primary Care P rovider Annalee Toussaint PA-C Unavailable [phone] Cr Fung MD Unavailable Bianca Rubalcava RN Unavailable [phone] Wm Ryan MD Unavailable Tatyana Dwyer MD Unavailable Christen Gallardo MD Unavailable [phone] Ana Fink MD Unavailable Encounter Details Date Type Department Care Team (Latest Contact Info) Description 06/18/2024 Travel Social History Tobacco Use Types Packs/Day Years [...] re latives? Twice a week 11/16/2023 Attends [employer] Services Not on file 11/15 Active Member [...] Answer Date Recorded PHQ-2 Score 0 11/21/2023 [facility] of Occupat ional Health - Occupational Stress [...] Answer Date Recorded Do you have housing? (Leonel g is defined as stable permanent housing and does not include staying ouside in a car, in a tent, in an abandoned building, in an overnight custodial, or couch-surfing.) Yes 11/16/2023 Are you worried [...] PM CDT Legal Sex Male 3:08 AM DIRECT MARKETING COORDINATOR Gender Identity Male 12/19/2020 9:52 PM CDT Sexual Orientation Straight 12/19/2020 9: 52 PM CDT documented as of this encounter Plan of Treatment Upcoming Encounters Date Type Department Care Team (Late st Contact Info) Description 08/18/2024 2:00 PM DIRECT MARKETING COORDINATOR Virtual Visit [facility] [address] [place] [address] [address] [place] [phone] [place] [address] 11/20/2024 9:30 AM CDT Office Visit [facility] [address] [place] [phone] Tatyana Dwyer MD [address] [place], [place] [address] documented as of this encounter Visit Diagnoses Not on filedocumented in this encounter Care Teams Snaker Relationship Specialty Start Date End Date Tatyana Dwyer MD [address] [place], [place] [phone] PCP - General Internal Medicine 06/01/19 Annalee Toussaint PA-C [address] [facility] 500 [place] [address] Physician Scrap Cutter Physician Scrap Cutter - Medical 07/15/19 Cr Fung MD [address] [place] [address] 394 [place] [address] Urology 07/15/19 Bianca Rubalcava, RN Specialty Stitcher Tape Controlled Machine Urology 07/15/19 Wm Ryan MD [address] [place] [address] Resident Student in [facility] health care education/training program 02/01/21 Tatyana Dwyer MD [address] [place] [address] Assigned PCP 02/05/21 Christen Gallardo [place] [address] Assigned Endocrinology Provider 11/18/21 Ana Fink MD [address] [place] [address] Fellow Gastroenterology 10/16/22 documented as of this encounter
--- OUTSIDE RECORDS SUMMARY | 2024-07-16 16:28 | XMS_ITS | Encounter Summary ---
Author Organization [place] Address [facility] [place] [address] Care Team Providers Care Training Development Manager Name Role Phone Tatyana Dwyer MD Primary Care P rovider Annalee Toussaint-C Unavailable [phone] Cr Fung MD Unavailable Bianca Rubalcava RN Unavailable [phone] Wm Ryan MD Unavailable Tatyana Dwyer MD Unavailable Christen Gallardo MD Unavailable [phone] Ana Fink MD Unavailable Encounter Details Date Type Department Care Team (Late st Contact Info) Description 01/08/2023 [facility] Medical Advice [facility] Specialty [address] [address] Christen Gallardo MD [place] [address] Social History Tobacco Use Types [...] Answer Date Recorded PHQ-2 Score 0 06/21/2022 Sex and Gender Information Value Date Recorded Sex Assigned at Male 12/19/2020 9:52 PM CDT Legal Sex Male 3:08 AM INTERMEDIATE DESIGNER Gender Identity Male 12/19/2020 9:52 PM CDT Sexual Orientation Straight 12/19/2020 9: 52 PM CDT documented as of this encounter Miscellaneous Notes * Telephone Encounter - Hernandez Singleton RN - 01/08/2023 12:22 PM CDT Patient has standing order for testosterone labs and has future for CBC. Routing message to Dr Gallardo to advise on liver function labs. Hernandez Singleton RN documented in this encounter Plan of Treatment Upcoming Encounters Date Type Department Care Team (Late st Contact Info) Description 08/18/2024 2:00 PM INTERMEDIATE DESIGNER Virtual Visit [address] [place] [phone] [place] [address] 11/20/2024 9:30 AM CDT Office Visit [place] [address] [place] [address] Tatyana Dwyer MD [address] [place] [address] documented as of this encounter Visit Diagnoses Not on filedocumented in this encounter Care Teams Training Development Manager Relationship Specialty Start Date End Date Tatyana Dwyer MD [address] [place] [address] PCP - General Internal Medicine 06/01/19 Annalee Toussaint PA-C [address] [place] [address] Physician Submersible Pilot Physician Submersible Pilot - Medical 07/15/19 Cr Fung MD [address] [place] [address] Urology 07/15/19 Bianca Rubalcava, RODNEY Specialty Manager Credit Urology 07/15/19 Wm Ryan MD [address] [place] [address] [phone] Resident Student in organized health care education/training program 02/01/21 Tatyana Dwyer MD [address] [place] [address] Assigned PCP 02/05/21 Christen Gallardo MD [facility] [place] [address] Assigned Endocrinology Provider 11/18/21 Ana Fink MD [address] [place] [phone] Fellow Gastroenterology 10/16/22 documented as of this encounter
--- OUTSIDE RECORDS SUMMARY | 2024-07-16 16:28 | XMS_ITS | Encounter Summary ---
Author Organization [place] Address [address] [place] [address] Care Team Providers Care Wharfinger Chief Name Role Phone Tatyana Dwyer MD Primary Care P rolorettader Tatyana Dwyer MD Unavailable Annalee Toussaint-C Unavailable Cr Fung MD Unavailable Bianca Rubalcava RN Unavailable [phone] Keegan Montemayor MD Unavailable Un available Joselin Andrade PA-C Unavailable Steven Tatum MD Unavailable Jim Mark MD Unavailable [phone] Jaime Wood MD Unavailable [phone] Annalee Toussaint-C Unavailable [phone] Honey Jackson APRN, CNP Unavailable [phone] Wm Ryan MD Unavailable Tatyana Dwyer MD Unavailable Amalia Agosto GC Unavailable [phone] Jaime Wood MD Unavailable [phone] Christen Gallardo MD Unavailable [phone] Ana Fink MD Unavailable Encounter Details Date Type Department Care Team (Late st Contact Info) Description 01/26/2020 MyC Medical Advice [facility] Dermatologic Surgery [address] [facility] [address] [place] [address] Mohsen Downs MD 6 [facility] Romario kennedy [facility] [place], [place] [address] Social History Tobacco Use Types Packs/Day Years [...] PM CDT Legal Sex Male 3:08 AM SPECIAL FORCES WEAPONS SERGEANT Gender Identity Male 12/19/2020 9:52 PM CDT Sexual Orientation Straight 12/19/2020 9: 52 PM CDT COVID-19 Exposure Response Date Recorded In the last month, have you been in contact with someone who was confirmed or suspected to have Coronavirus / COVID-19? No / Unsure 01/18/2020 1:12 PM CDT documented as of this encounter Plan of Treatment Upcoming Encounters Date Type Department Care Team (Late st Contact Info) Description 08/18/2024 2:00 PM SPECIAL FORCES WEAPONS SERGEANT Virtual Visit [facility] Specialty [address] [address] Christen Gallardo MD [facility] [address] 11/20/2024 9:30 AM CDT Office Visit [facility] [address] [place] [phone] Tatyana Dwyer MD [address] [place], [place] [address] documented as of this encounter Visit Diagnoses Not on filedocumented in this encounter Additional Health Concerns Infection Onset Date Last Indicated Resolved Time Rule Out COVID-19 10/25/2021 10/25/2021 10/26/2021 12:43 PM CDT COVID-19 10/25/2021 10/25/2021 11/15/2021 11:3 9 PM CDT documented as of this encounter Care Teams Wharfinger Chief Relationship Specialty Start Date End Date Tatyana Dwyer MD [address] [place], [place] [address] PCP - General Internal Medicine 06/01/19 Tatyana Dwyer MD [address] [place], [place] [address] Assigned PCP 05/31/19 10/15/20 Annalee Toussaint PA-C [address] [address] Physician Receiving Checker Physician Receiving Checker - Medical 07/15/19 Cr Fung MD [address] [place] [address] 394 [place], [place] [address] Urology 07/15/19 Bianca Rubalcava, RODNEY Specialty Lapping Machine Operator Urology 07/15/19 Keegan Montemayor MD Assigned Heart and Vascular Provider 04/08/20 12/27/20 Joselin Andrade PA-C [address] [place] [address] Assigned Pediatric Specialist Provider 04/08/20 07/17/20 [place] [address] [place] [address] Assigned Surgical Provider 04/08/20 07/22/21 Jim Mark MD [address] [place] [address] [id number] Assigned Musculoskeletal Provider 04/08/20 02/11/21 Jaime Wood MD [address] [place] [address] Assigned Sleep Provider 04/08/2004/08 Annalee Toussaint PA-C [address] [place], [place] [address] Assigned OBGYN Provider 08/31/20 1 Honey Jackson APRN KETTLE WORKER [address] [place] [address] Assigned PCP 10/16/20 02/04/21 Wm Ryan MD [address] [place] [address] Resident Student in organized health care education/training program 02/01/21 Tatyana Dwyer MD [address] [place] [address] Assigned PCP 02/05/21 Amalia Agosto GC [address] [place] [address] Assigned OBGYN Provider 05/07/21 07/15/21 Jaime Wood MD [address] [address] Assigned Sleep Provider 07/09/21 Christen Gallardo MD [place] [address] Assigned Endocrinology Provider 11/18/21 Ana Fink MD [address] [place] [address]50805 Fellow Gastroenterology 10/16/22 documented as of this encounter
--- OUTSIDE RECORDS SUMMARY | 2024-07-16 16:28 | XMS_ITS | Encounter Summary ---
Author Organization [place] Address [facility] [place] [address] Care Team Providers Care Grey Iron Molder Name Role Phone Tatyana Dwyer MD Primary Care P rolorettader Annalee Toussaint-C Unavailable [phone] Cr Fung MD Unavailable [phone] Bianca Rubalcava RN Unavailable [phone] Wm Ryan MD Unavailable Tatyana Dwyer MD Unavailable Christen Gallardo MD Unavailable [phone] Ana Fink MD Unavailable Reason for Visit * Reason Onset Date Comments Prior Auth - Medication 07/01/2024 Wegovy 2 .4- [place] APPROVED Encounter Details Date Type Department Care Team (Late st Contact Info) Description 07/01/[address] [address] [place] [address] Prior Auth - Medication (Wegovy 2.4- [place] APPROVED) Social History Tobacco Use Types Packs/Day Years [...] re latives? Twice a week 11/16/2023 Attends [employer] Services Not on file 11/15 Active Member [...] Answer Date Recorded PHQ-2 Score 0 11/21/2023 [facility] of Occupat ional Health - Occupational [...] in an abandoned building, in an overnight fpc, or couch-surfing.) Yes 11/16/2023 Are you worried [...] PM CDT Legal Sex Male 3:08 AM INSTRUMENT TECH Gender Identity Male 12/19/2020 9:52 PM CDT Sexual Orientation Straight 12/19/2020 9: 52 PM CDT documented as of this encounter Miscellaneous Notes * Telephone Encounter - Kelly Marcial - 07/08/2024 11:38 AM CST Images from the original note were not included. Central Prior Authorization Team - Prior Authorization Approval Medication: WEGOVY 2.4 MG/0.75ML [place] SOAJ Authorization Effective Date: 07/03/2024 Authorization Expiration Date: 12/31/2024 Approved Dose/Quantity: 3 Reference #: Insurance Company: [employer] ([facility]) - Expected CoPay: $ CoPay Card Available: Financial Assistance Needed: Which Pharmacy is filling the prescription: [id number] [place] [address] [address] [facility] [address] Pharmacy Notified: YES Patient Notified: YES Instructed pharmacy to notify patient once order is ready. RUMENT TECH * Telephone Encounter - Kelly Marcial - 07/03/2024 3:56 PM CST Images from the original note were not included. Central Prior Authorization Team - PA Initiation Medication: WEGOVY 2.4 MG/0.75ML [place] SOAJ Insurance Company: [employer] ([facility]) - Pharmacy Filling the Rx: [id number] [place], [place] - [address] [place] [address] [address] [facility] [address] Filling Pharmacy Filling Pharmacy Fax: Start Date: 07/03/2024 RUMENT TECH * Telephone Encounter - Nita Esteban RN - 07/01/2024 12:52 PM CST Prior Authorization Retail Medication Request Medication/Dose: Wegovy Diagnosis and ICD code (if different than what is on RX): New/renewal/insurance change PA/secondary ins. PA: Previously Tried and Failed: Rationale: Insurance Primary: [facility] Secondary (if applicable): Insurance ID: Pharmacy Information (if different than what is on RX) Name: Phone: Fax: Clinic Information Preferred routing pool for dept communication: p cs endocrine RUMENT TECH documented in this encounter Plan of Treatment Upcoming Encounters Date Type Department Care Team (Late st Contact Info) Description 08/18/2024 2:00 PM INSTRUMENT TECH Virtual Visit [facility] Specialty [place] [address] [address] [address] Christen Gallardo MD [facility] [place], [place] [phone] 11/20/2024 9:30 AM CDT Office Visit [facility] [address] [place] [phone] Tatyana Dwyer MD [address] [place] [address] documented as of this encounter Visit Diagnoses Not on filedocumented in this encounter Care Teams Grey Iron Molder Relationship Specialty Start Date End Date Tatyana Dwyer MD [address] [place], [place] [address] PCP - General Internal Medicine 06/01/19 Annalee Toussaint PA-C [address] [address] Physician Warranty Administrator Physician Warranty Administrator - Medical 07/15/19 Cr Fung MD [address] [address] Urology 07/15/19 Bianca Rubalcava, RN Specialty Art Psychotherapist Or Therapist Urology 07/15/19 Wm Ryan MD [address] [place] [address] [phone] Resident Student in organized health care education/training program 02/01/21 Tatyana Dwyer MD [address] [place] [address] Assigned PCP 02/05/21 [place] [address] Assigned Endocrinology Provider 11/18/21 Ana Fink MD [address] [place] [address] Fellow Gastroenterology 10/16/22 documented as of this encounter
--- OUTSIDE RECORDS SUMMARY | 2024-07-16 16:28 | XMS_ITS | Encounter Summary ---
Author Organization [place] Address [address] [place] [address] Care Team Providers Care Plasterer Foreman Name Role Phone Tatyana Dwyer MD Primary Care P rolorettader Tatyana Dwyer MD Unavailable Annalee Toussaint-C Unavailable Cr Fung MD Unavailable Bianca Rubalcava RN Unavailable [phone] Keegan Montemayor MD Unavailable Un available Joselin Andrade PA-C Unavailable [phone] Steven Tatum MD Unavailable Jim Mark MD Unavailable [phone] Jaime Wood MD Unavailable [phone] Annalee Toussaint-C Unavailable [phone] Honey Jackson APRN, CNP Unavailable + [phone] Wm Ryan MD Unavailable Tatyana Dwyer MD Unavailable Amalia Agosto GC Unavailable [phone] Jaime Wood MD Unavailable [phone] Christen Gallardo MD Unavailable [phone] Ana Fink MD Unavailable Encounter Details Date Type Department Care Team (Late st Contact Info) Description 01/25/2020 MyC Medical Advice [facility] Dermatologic Surgery 909 [facility] 3rd [place] [address] [place] [address] [place] [address] Social History Tobacco Use Types Packs/Day Years [...] PM CDT Legal Sex Male 3:08 AM KEY OPERATOR Gender Identity Male 12/19/2020 9:52 PM [...] st Contact Info) Description 08/18/2024 2:00 PM KEY OPERATOR Virtual Visit [facility] Specialty [address] [place] [address] Christen Gallardo [place] [address] 11/20/2024 9:30 AM CDT Office Visit [address] [place] [address] [place] [address] Tatyana Dwyer MD [address] [place], [place] [address] documented as of this encounter Visit Diagnoses Not on filedocumented in this encounter Additional Health Concerns Infection Onset Date Last Indicated Resolved Time Rule Out COVID-19 10/25/2021 10/25/2021 10/26/2021 12:43 PM CDT COVID-19 10/25/2021 10/25/2021 11/15/2021 11:3 9 PM CDT documented as of this encounter Care Teams Plasterer Foreman Relationship Specialty Start Date End Date Tatyana Dwyer MD [address] [place] [address] PCP - General Internal Medicine 06/01/19 Tatyana Dwyer MD [address] [place], [place] [address]607 Assigned PCP 05/31/19 10/15/20 Annalee Toussaint PA-C [address] [facility] [address] [address] Physician Sql Report Analyst Physician Sql Report Analyst - Medical 07/15/19 Cr Fung MD 420 [facility]PARTMENT 394 [place], [place] [address]285 Urology 07/15/19 Bianca Rubalcava, RN Specialty Wildland Fire Fighter Urology 07/15/19 Keegan Montemayor MD Assigned Heart and Vascular Provider 04/08/20 12/27/20 Joselin Andrade PA-C [address] [place] [address] Assigned Pediatric Specialist Provider 04/08/20 07/17/20 [place] [address] [place] [address] Assigned Surgical Provider 04/08/20 07/22/21 Jim Mark MD 909 [place], [place] [address]75 Assigned Musculoskeletal Provider 04/08/20 02/11/21 Jaime Wood MD [address] [place] [address] Assigned Sleep Provider 04/08/2004/08 Annalee Toussaint PA-C [address] [place], [place] [address] Assigned OBGYN Provider 08/31/20 1 Honey Jackson APRN SPANISH PROFESSOR [address] [place], [place] 246427 Assigned PCP 10/16/20 02/04/21 Wm Ryan MD [address] [place] [address] 108465 Resident Student in organized health care education/training program 02/01/21 Tatyana Dwyer MD [address] [place], [place] [address] Assigned PCP 02/05/21 Amalia Agosto GC 2450 [place], [place] [address]454 Assigned OBGYN Provider 05/07/21 07/15/21 Jaime Wood MD 6363 [facility] 103 [place], [place] 254415 Assigned Sleep Provider 07/09/21 Christen Gallardo [place] [address] Assigned Endocrinology Provider 11/18/21 Ana Fink MD [address] [place] [address] 776925 Fellow Gastroenterology 10/16/22 documented as of this encounter
--- OUTSIDE RECORDS SUMMARY | 2024-07-16 16:28 | XMS_ITS | Encounter Summary ---
Author Organization [place] Address [address] [place] [address]. [place] [address] Care Team Providers Care Upholstery Estimator Name Role Phone Tatyana Dwyer MD Primary Care P rolorettader Annalee ToussaintC Unavailable [phone] Cr Fung MD Unavailable Bianca Rubalcava RN Unavailable [phone] Wm Ryan MD Unavailable Tatyana Dwyer MD Unavailable Christen Gallardo MD Unavailable [phone] Ana Fink MD Unavailable Encounter Details Date Type Department Care Team (Late st Contact Info) Description 01/07/2024 MyC Medical Advice [facility] [address] [place] [address] Shanice Lo Social History Tobacco Use Types Packs/Day Years [...] re latives? Twice a week 11/16/2023 Attends Restorationist Services Not on file 11/15 Active Member of Clubs or Organizations Not on f ile 11/16/2023 Attends Club or Organization Meetings Not on hseila e 11/16/2023 Marital Status Not on file [...] Answer Date Recorded PHQ-2 Score 0 11/21/2023 [facility] of Occupat ional Health - Occupational Stress [...] in an abandoned building, in an overnight penitentiary, or couch-surfing.) Yes 11/16/2023 Are you worried [...] PM CDT Legal Sex Male 3:08 AM PSYCHOLOGICAL TESTS SALES AGENT Gender Identity Male 12/19/2020 9:52 PM CDT Sexual Orientation Straight 12/19/2020 9: 52 PM CDT documented as of this encounter Plan of Treatment Upcoming Encounters Date Type Department Care Team (Late st Contact Info) Description 08/18/2024 2:00 PM PSYCHOLOGICAL TESTS SALES AGENT Virtual Visit [address] [place] [phone] [place] [address] 11/20/2024 9:30 AM CDT Office Visit [place] [address] [place] [phone] Tatyana Dwyer MD [address] [place], [place] 944767 documented as of this encounter Visit Diagnoses Not on filedocumented in this encounter Care Teams Upholstery Estimator Relationship Specialty Start Date End Date Tatyana Dwyer MD [address] [facility] [place] [place] [address] PCP - General Internal Medicine 06/01/19 Annalee Toussaint PA-C [address] [address] Physician Guest Service Manager Physician Guest Service Manager - Medical 07/15/19 Cr Fung MD [address] [place] [address] Urology 07/15/19 Bianca Rubalcava, RN Specialty Pantograph Setter Urology 07/15/19 Wm Ryan MD [address] [place] [address] Resident Student in organized health care education/training program 02/01/21 Tatyana Dwyer MD [address] [place] [address] Assigned PCP 02/05/21 Christen Gallardo MD [place] [address] Assigned Endocrinology Provider 11/18/21 Ana Fink MD [address] [place] [address] Fellow Gastroenterology 10/16/22 documented as of this encounter
--- OUTSIDE RECORDS SUMMARY | 2024-07-16 16:28 | XMS_ITS | Encounter Summary ---
Author Organization [place] Address [address] [place] [address] Care Team Providers Care Wire Coater Name Role Phone Tatyana Dwyer MD Primary Care P rolorettader Tatyana Dwyer MD Unavailable Annalee Toussaint-C Unavailable Cr Fung MD Unavailable [phone] Bianca Rubalcava RN Unavailable [phone] Keegan Montemayor MD Unavailable Un available Joselin Andrade PA-C Unavailable Steven Tatum MD Unavailable Jim Mark MD Unavailable [phone] Jaime Wood MD Unavailable [phone] Annalee Toussaint-C Unavailable [phone] Honey Jackson APRN, CNP Unavailable + [phone] Wm Ryan MD Unavailable [phone] Tatyana Dwyer MD Unavailable Amalia Agosto GC Unavailable [phone] Jaime Wood MD Unavailable [phone] Christen Gallardo MD Unavailable [phone] Ana Fink MD Unavailable Reason for Visit * Reason Onset Date Comments Appointment 10/21/2019 Pt was having Mo hs surgery back in August That was canceled he wanted call back to discuss rescheduling Encounter Details Date Type Department Care Team (Late st Contact Info) Description 10/21/2019 Telephone [facility] Dermatology [address] 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 No / Unsure 10/16/2019 8:23 AM CDT documented as of this encounter Miscellaneous Notes * Telephone Encounter - Kasey Balderas - 10/28/2019 4:00 PM CDT Derm Surg Nellie- op Professor Of Finance called the patient to schedule excision with Dr. Tatum. The number [phone] was left on voicemail for the patient to return the call and schedule the procedure. Ciara Balderas Periop Derm/Surg Professor Of Finance [phone] * Telephone Encounter - Isabela Blake LPN - 10/22/2019 4:52 PM CDT Nurse spoke to patient and informed him that we received his message and we have reached out to and Dr. Espinal to see when we can put him on the schedule. Patient confirmed information verbally and had no further questions or concerns. Isabela Blake LPN * Telephone Encounter - Carolyn Cheung - 10/21/2019 2:33 PM CDT [facility] Phone Message May a detailed message be left on voicemail: yes Reason for Call: Other: Pt was having Mohs surgery back in August That was canceled he wanted call back to discuss rescheduling Please call back to discuss Thank you, Action Taken: Message routed to[facility] derm Travel Screening: Not Applicable documented in this encounter Plan of Treatment Upcoming Encounters Date Type Department Care Team (Late st Contact Info) Description 08/18/2024 2:00 PM ASSOCIATE SOFTWARE ENGINEER Virtual Visit [address] [place] [phone] [place] [address] 11/20/2024 9:30 AM CDT Office Visit [address] [place] [address] [place] [phone] Tatyana Dwyer MD [facility] [place] [address] documented as of this encounter Visit Diagnoses Not on filedocumented in this encounter Additional Health Concerns Infection Onset Date Last Indicated Resolved Time Rule Out COVID-19 10/25/2021 10/25/2021 10/26/2021 12:43 PM CDT COVID-19 10/25/2021 10/25/2021 11/15/2021 11:3 9 PM CDT documented as of this encounter Care Teams Wire Coater Relationship Specialty Start Date End Date Tatyana Dwyer MD [address] [place], [place] [address]677 PCP - General Internal Medicine 06/01/19 Tatyana Dwyer MD [address] [place] [address] Assigned PCP 05/31/19 10/15/20 Annalee Toussaint PA-C [address] [address] Physician Asset Protection Representative Physician Asset Protection Representative - Medical 07/15/19 Cr Fung MD 420 [facility] 394 [place] [address] Urology 07/15/19 Bianca Rubalcava, RN Specialty Delivery Motorcycle Driver Urology 07/15/19 Keegan Montemayor MD Assigned Heart and Vascular Provider 04/08/20 12/27/20 Joselin Andrade PA-C [address] [place] [address] Assigned Pediatric Specialist Provider 04/08/20 07/17/20 [place] [address] [place] [address] Assigned Surgical Provider 04/08/20 07/22/21 Jim Mark MD [address] [place] [address] 332195 Assigned Musculoskeletal Provider 04/08/20 02/11/21 Jaime Wood MD [address] [place], [place] [address]425 Assigned Sleep Provider 04/08/2004/08 Annalee Toussaint PA-C [address] [place], [place] [address] Assigned OBGYN Provider 08/31/20 1 Honey Jackson APRN [facility] [address] [place], [place] [address]117 Assigned PCP 10/16/20 02/04/21 Wm Ryan MD 420 [place], [place] 781625 Resident Student in organized health care education/training program 02/01/21 Tatyana Dwyer MD [address] [place], [place] 798317 Assigned PCP 02/05/21 Amalia Agosto GC 2450 [place], [place] [address]994 Assigned OBGYN Provider 05/07/21 07/15/21 Jaime Wood MD [address] [address] Assigned Sleep Provider 07/09/21 Christen Gallardo MD [place] [address] Assigned Endocrinology Provider 11/18/21 Ana Fink MD [address] [place] [address] Fellow Gastroenterology 10/16/22 documented as of this encounter
--- OUTSIDE RECORDS SUMMARY | 2024-07-16 16:28 | XMS_ITS | Encounter Summary ---
Author Organization [place] Address [facility] [address] Care Team Providers Care Integrity Specialist Name Role Phone Tatyana Dwyer MD Primary Care P rovider Annalee Toussaint PA-C Unavailable Cr Fung MD Unavailable [phone] Bianca Rubalcava RN Unavailable [phone] Wm Ryan MD Unavailable [phone] Tatyana Dwyer MD Unavailable Christen Gallardo MD Unavailable [phone] Ana Fink MD Unavailable Encounter Details Date Type Department Care Team (Late st Contact Info) Description 03/06/2024 [facility] Medical Advice [facility] Specialty [address] [address] Christen Gallardo MD [place] [address] Social History Tobacco Use Types [...] re latives? 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 Gender Identity Male 12/19/2020 9:52 PM CDT Sexual Orientation Straight 12/19/2020 9: 52 PM CDT documented as of this encounter Plan of Treatment Upcoming Encounters Date Type Department Care Team (Late st Contact Info) Description 08/18/2024 2:00 PM SALES MANAGEMENT INTERN Virtual Visit [address] [phone] [place] [address] 11/20/2024 9:30 AM CDT Office Visit [address] [place] [address] [place] [address] Tatyana Dwyer MD [facility] [place], [place] [address] documented as of this encounter Visit Diagnoses Not on filedocumented in this encounter Care Teams Integrity Specialist Relationship Specialty Start Date End Date Tatyana Dwyer MD [facility] [place] [address] PCP - General Internal Medicine 06/01/19 Annalee Toussaint PA-C [address] [address] Physician Loop Tender Physician Loop Tender - Medical 07/15/19 Cr Fung MD [address] [place] [address] Urology 07/15/19 Bianca Rubalcava, RODNEY Specialty Patient Accounts Specialist Urology 07/15/19 Wm Ryan MD [address] [place] [address] 486015 Resident Student in organized health care education/training program 02/01/21 Tatyana Dwyer MD [address] [place], [place] 507877 Assigned PCP 02/05/21 Christen Gallardo [place] [address] Assigned Endocrinology Provider 11/18/21 Ana Fink MD [address] [place] [address] 435835 Fellow Gastroenterology 10/16/22 documented as of this encounter
--- OUTSIDE RECORDS SUMMARY | 2024-07-16 16:28 | XMS_ITS | Encounter Summary ---
Author Organization [place] Address [address] [place] [address] Care Team Providers Care Technical Staff Engineer Name Role Phone Tatyana Dwyer MD Primary Care P rolorettader Tatyana Dwyer MD Unavailable Annalee Toussaint-C Unavailable Cr Fung MD Unavailable [phone] Bianca Rubalcava RN Unavailable [phone] Keegan Montemayor MD Unavailable Un available Joselin Andrade PA-C Unavailable [phone] Steven Tatum MD Unavailable Jim Mark MD Unavailable [phone] Jaime Wood MD Unavailable [phone] Annalee Toussaint-C Unavailable [phone] Honey Jackson APRN, CNP Unavailable + [phone] Wm Ryan MD Unavailable Tatyana Dwyer MD Unavailable Amalia Agosto GC Unavailable [phone] Jaime Wood MD Unavailable [phone] Christen Gallardo MD Unavailable [phone] Ana Fink MD Unavailable Encounter Details Date Type Department Care Team (Late st Contact Info) Description 08/27/[address] 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 Gender Identity Male 12/19/2020 9:52 PM CDT Sexual Orientation Straight 12/19/2020 9: 52 PM CDT documented as of this encounter Plan of Treatment Upcoming Encounters Date Type Department Care Team (Late st Contact Info) Description 08/18/2024 2:00 PM ASSEMBLER ADJUSTER Virtual Visit [address] [place] [phone] Christen Gallardo MD [facility] [place] [address] 11/20/2024 9:30 AM CDT Office Visit [place] [address] [place] [address] Tatyana Dwyer MD [facility] [place] [address] documented as of this encounter Visit Diagnoses Not on filedocumented in this encounter Additional Health Concerns Infection Onset Date Last Indicated Resolved Time Rule Out COVID-19 10/25/2021 10/25/2021 10/26/2021 12:43 PM CDT COVID-19 10/25/2021 10/25/2021 11/15/2021 11:3 9 PM CDT documented as of this encounter Care Teams Technical Staff Engineer Relationship Specialty Start Date End Date Tatyana Dwyer MD [address] [place], [place] 590437 PCP - General Internal Medicine 06/01/19 Tatyana Dwyer MD [address] [place] [address] Assigned PCP 05/31/19 10/15/20 Annalee Toussaint PA-C [address] 991285 Physician Cyber Defense Forensics Analyst Physician Cyber Defense Forensics Analyst - Medical 07/15/19 Cr Fung MD 420 [facility] 394 [place] [address] Urology 07/15/19 Bianca Rubalcava, RN Specialty Psych Sales Specialist Urology 07/15/19 Keegan Montemayor MD Assigned Heart and Vascular Provider 04/08/20 12/27/20 Joselin Andrade PA-C [address] [place] [address] Assigned Pediatric Specialist Provider 04/08/20 07/17/20 [place] [address] [place] [address] Assigned Surgical Provider 04/08/20 07/22/21 Jim Mark MD [address] [place] [address] 080595 Assigned Musculoskeletal Provider 04/08/20 02/11/21 Jaime Wood MD [facility] [facility] [address] [place], [place] [address] Assigned Sleep Provider 04/08/2004/08 Annalee Toussaint PA-C [address] [place], [place] [address] Assigned OBGYN Provider 08/31/20 1 Honey Jackson APRN [facility] [address] [place] [address] Assigned PCP 10/16/20 02/04/21 Wm Ryan MD [address] [place] [address] 303515 Resident Student in organized health care education/training program 02/01/21 Tatynaa Dwyer MD [address] [place] [address] Assigned PCP 02/05/21 Amalia Agosto GC 2450 [place], [place] 408374 Assigned OBGYN Provider 05/07/21 07/15/21 Jaime Wood MD [address] [address] Assigned Sleep Provider 07/09/21 Christen Gallardo MD [facility] [place] [address] Assigned Endocrinology Provider 11/18/21 Ana Fink MD [address] [place] [address] Fellow Gastroenterology 10/16/22 documented as of this encounter
--- OUTSIDE RECORDS SUMMARY | 2024-07-16 16:28 | XMS_ITS | Encounter Summary ---
Author Organization [place] Address [facility] [place] [address] Care Team Providers Care Rn Advice Name Role Phone Tatyana Dwyer MD Primary Care P rolorettader Annalee Toussaint PA-C Unavailable Cr Fung MD Unavailable Bianca Rubalcava RN Unavailable [phone] Wm Ryan MD Unavailable [phone] Tatyana Dwyer MD Unavailable Jaime Wood MD Unavailable Christen Gallardo MD Unavailable [phone] Ana Fink MD Unavailable Reason for Visit * Reason Onset Date Comments Refill Request 11/06/2022 lisinopril (ZESTRIL) 20 MG tablet 11/06/2022 Encounter Details Date Type Department Care Team (Late st Contact Info) Description 11/06/2022 Refill [facility] [address] [place] [address] Tatyana Dwyer MD [address] [place] [address] Refill Request; lisinopril (ZESTRIL) 20 MG tablet Social History Tobacco Use Types Packs/Day Years [...] PM CDT Legal 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 No / Unsure 10/22/2022 11:27 AM CDT documented as of this encounter Miscellaneous Notes * Telephone Encounter - Carolyn Palumbo RN - 11/07/2022 2:14 PM CDT Prescription approved per [facility] Refill Protocol. Due around 06/21/23 for next office visit documented in this encounter Plan of Treatment Upcoming Encounters Date Type Department Care Team (Late st Contact Info) Description 08/18/2024 2:00 PM WIRE STRAIGHTENING MACHINE OPERATOR Virtual Visit [address] [place] [phone] [place] [address] 11/20/2024 9:30 AM CDT Office Visit [address] [place] [phone] Tatyana Dwyer MD [address] [place], [place] 4[address] documented as of this encounter Visit Diagnoses Diagnosis HTN, goal below 140/90 Unspecified essential hypertension documented in this encounter Care Teams Rn Advice Relationship Specialty Start Date End Date Tatyana Dwyer MD [address] [place], [place] [address] PCP - General Internal Medicine 06/01/19 Annalee Toussaint PA-C [address] [place], [place] [address] Physician Water Reclamation Systems Operator Physician Water Reclamation Systems Operator - Medical 07/15/19 Cr Fung MD 420 [facility] 394 [place], [place] 79[address] Urology 07/15/19 Bianca Rubalcava, RODNEY Specialty Scheduling Clerk Urology 07/15/19 Wm Ryan MD 420 [place], [place] 2094[address] Resident Student in organized health care education/training program 02/01/21 Tatyana Dwyer MD [address] [place] [address] Assigned PCP 02/05/21 Jaime Wood MD [address] [place], [place] [address] Assigned Sleep Provider 07/09/21 01/04/23 [place] [address] Assigned Endocrinology Provider 11/18/21 Ana Fink MD [address] [place] [address] Fellow Gastroenterology 10/16/22 documented as of this encounter
--- OUTSIDE RECORDS SUMMARY | 2024-07-16 16:28 | XMS_ITS | Encounter Summary ---
Author Organization [place] Address [facility] [place] [address] Care Team Providers Care Hand Stoner Name Role Phone Tatyana Dwyer MD Primary Care P rovider Annalee Toussaint PA-C Unavailable [phone] Cr Fung MD Unavailable [phone] Bianca Rubalcava RN Unavailable [phone] Wm Ryan MD Unavailable Tatyana Dwyer MD Unavailable Christen Gallardo MD Unavailable [phone] Ana Fink MD Unavailable Reason for Visit * Reason Comments Medication Refill Encounter Details Date Type Department Care Team (Late st Contact Info) Description 06/13/[address] [place] [address] Tatyana Dwyer MD [address] [place] [address] Medication Refill Social History Tobacco Use Types Packs/Day Years [...] re latives? 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 DRIVER Gender Identity Male 12/19/2020 9:52 PM CDT Sexual Orientation Straight 12/19/2020 9: 52 PM CDT documented as of this encounter Plan of Treatment Upcoming Encounters Date Type Department Care Team (Late st Contact Info) Description 08/18/2024 2:00 PM AUTO CARRIER DRIVER Virtual Visit [address] [phone] [place] [address] 11/20/2024 9:30 AM CDT Office Visit [address] [place] [address] Tatyana Dwyer MD [facility] [address] [place], [place] 68[address] documented as of this encounter Visit Diagnoses Diagnosis Tachycardia Tachycardia, unspecified HTN, goal below 140/90 Unspecified essential hypertension documented in this encounter Care Teams Hand Stoner Relationship Specialty Start Date End Date Tatyana Dwyer MD [address] [place] [address] PCP - General Internal Medicine 06/01/19 Annalee Toussaint PA-C [address] [place] [address] Physician Snowboarding Instructor Physician Snowboarding Instructor - Medical 07/15/19 Cr Fung MD [address] [place] [address] [id number] Urology 07/15/19 Bianca Rubalcava, RN Specialty Colon And Rectal Surgeon Urology 07/15/19 Wm Ryan MD [address] [place] [address] 053505 Resident Student in organized health care education/training program 02/01/21 Tatyana Dwyer MD [address] [place] [address] Assigned PCP 02/05/21 Christen Gallardo MD [place] [address] Assigned Endocrinology Provider 11/18/21 Ana Fink MD [address] [place] [address] [id number] Fellow Gastroenterology 10/16/22 documented as of this encounter
--- OUTSIDE RECORDS SUMMARY | 2024-07-16 16:28 | XMS_ITS | Encounter Summary ---
Author Organization [place] Address [address] [place] [address]. [place] [address] Care Team Providers Care Shearer Operator Name Role Phone Tatyana Dwyer MD Primary Care P rovider Annalee Toussaint-C Unavailable [phone] Cr Fung MD Unavailable Bianca Rubalcava RN Unavailable [phone] Wm Ryan MD Unavailable [phone] Tatyana Dwyer MD Unavailable Christen Gallardo MD Unavailable [phone] Ana Fink MD Unavailable Encounter Details Date Type Department Care Team (Late st Contact Info) Description 09/24/2023 MyC Medical Advice [facility] [address] [address] Nita Esteban, RN Social History [...] PM CDT Legal 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 Pt is busy at the moment but said they can go on [employer] to schedule a 6 month follow up visit with Dr. Gallardo sometime in April. documented in this encounter Plan of Treatment Upcoming Encounters Date Type Department Care Team (Late st Contact Info) Description 08/18/2024 2:00 PM MARKET SPECIALIST Virtual Visit [address] [phone] Christ[place] [address] 11/20/2024 9:30 AM CDT Office Visit [facility] [address] [place] [phone] Tatyana Dwyer MD [address] [place], [place] 0[address] documented as of this encounter Visit Diagnoses Not on filedocumented in this encounter Care Teams Shearer Operator Relationship Specialty Start Date End Date Tatyana Dwyer MD [address] [place] [address] PCP - General Internal Medicine 06/01/19 Annalee Toussaint PA-C [address] [address] Physician Hand Cultivator Physician Hand Cultivator - Medical 07/15/19 Cr Fung MD [address] [place] [address] Urology 07/15/19 Bianca Rubalcava, RODNEY Specialty Wood Strip Block Floor Installer Urology 07/15/19 Wm Ryan MD [address] [place] [address] [phone] Resident Student in organized health care education/training program 02/01/21 Tatyana Dwyer MD [address] [place], [place] 435[address] Assigned PCP 02/05/21 Christen Gallardo [place] [address] Assigned Endocrinology Provider 11/18/21 Ana Fink MD [address] [place] [address] [phone] Fellow Gastroenterology 10/16/22 documented as of this encounter
--- OUTSIDE RECORDS SUMMARY | 2024-07-16 16:28 | XMS_ITS | Encounter Summary ---
Author Organization [place] Address [address] [place] [address] Care Team Providers Care Mat Repairer Name Role Phone Tatyana Dwyer MD Primary Care P rovider Annalee Toussaint PA-C Unavailable [phone] Cr Fung MD Unavailable Bianca Rubalcava RN Unavailable [phone] Wm Ryan MD Unavailable Tatyana Dwyer MD Unavailable Christen Gallardo MD Unavailable [phone] Ana Fink MD Unavailable Encounter Details Date Type Department Care Team (Latest Contact Info) Description 06/23/2024 Travel Social History Tobacco Use Types Packs/Day [...] re latives? 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 DRY KILN LOADER Gender Identity Male 12/19/2020 9:52 PM CDT Sexual Orientation Straight 12/19/2020 9: 52 PM CDT documented as of this encounter Plan of Treatment Upcoming Encounters Date Type Department Care Team (Late st Contact Info) Description 08/18/2024 2:00 PM DRY KILN LOADER Virtual Visit [facility] [address] [place] [address] [address] [place] [phone] [place] [address] 11/20/2024 9:30 AM CDT Office Visit [facility] [address] [place] [phone] Tatyana Dwyer MD [address] [place], [place] 3428[address] documented as of this encounter Visit Diagnoses Not on filedocumented in this encounter Care Teams Mat Repairer Relationship Specialty Start Date End Date Tatyana Dwyer MD [address] [place], [place] [address] PCP - General Internal Medicine 06/01/19 Annalee Toussaint PA-C 6[address] [facility] 500 [place] [address] Physician Lsw Physician Lsw - Medical 07/15/19 Cr Fung MD [address] [place] [address] [address] [place] [address] Urology 07/15/19 Bianca Rubalcava, RN Specialty Animal Pathology Teacher Urology 07/15/19 Wm Ryan MD [address] [place] [address] Resident Student in [facility] health care education/training program 02/01/21 Tatyana Dwyer MD [address] [place] [address] Assigned PCP 02/05/21 Christen Gallardo [place] [address] Assigned Endocrinology Provider 11/18/21 Ana Fink MD [address] [place] [address] Fellow Gastroenterology 10/16/22 documented as of this encounter
--- OUTSIDE RECORDS SUMMARY | 2024-07-16 16:28 | XMS_ITS | Encounter Summary ---
Author Organization [place] Address [facility] [place] [address] Care Team Providers Care Phone Manager Name Role Phone Tatyana Dwyer MD Primary Care P rovider Annalee Toussaint-C Unavailable [phone] Cr Fung MD Unavailable Bianca Rubalcava RN Unavailable [phone] Wm Ryan MD Unavailable Tatyana Dwyer MD Unavailable Christen Gallardo MD Unavailable [phone] Ana Fink MD Unavailable Encounter Details Date Type Department Care Team (Late st Contact Info) Description 03/15/2023 [facility] Medical Advice [facility] [address] [address] Christen Gallardo MD [place] [address] Social History Tobacco Use Types [...] PM CDT Legal Sex Male 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 [address] [place] [phone] Tatyana Dwyer MD [address] [place], [place] [address] documented as of this encounter Visit Diagnoses Not on filedocumented in this encounter Care Teams Phone Manager Relationship Specialty Start Date End Date Tatyana Dwyer MD [address] [place], [place] 9[address] PCP - General Internal Medicine 06/01/19 Annalee Toussaint PA-C [address] [address] Physician Lieutenant Fire Fighter Physician Lieutenant Fire Fighter - Medical 07/15/19 Cr Fung MD [address] [place] [address] 394 [place] [address] Urology 07/15/19 Bianca Rubalcava, RN Specialty Sleeve Wheel Maker Urology 07/15/19 Wm Ryan MD [address] [place] [address] [phone] Resident Student in organized health care education/training program 02/01/21 Tatyana Dwyer MD [address] [place], [place] 498187 Assigned PCP 02/05/21 Christen Gallardo [place] [address] Assigned Endocrinology Provider 11/18/21 Ana Fink MD [address] [place] [address] Fellow Gastroenterology 10/16/22 documented as of this encounter
--- OUTSIDE RECORDS SUMMARY | 2024-07-16 16:28 | XMS_ITS | Encounter Summary ---
Author Organization [place] Address [address] [place] [address] Care Team Providers Care Cell Tuber Machine Name Role Phone Tatyana Dwyer MD Primary Care P rolorettader Tatyana Dwyer MD Unavailable Annalee Toussaint-C Unavailable [phone] Cr Fung MD Unavailable Bianca Rubalcava RN Unavailable [phone] Keegan Montemayor MD Unavailable Un available Joselin Andrade PA-C Unavailable Steven Tatum MD Unavailable Jim Mark MD Unavailable [phone] Jaime Wood MD Unavailable [phone] Annalee Toussaint-C Unavailable [phone] Honey Jackson APRN, CNP Unavailable + [phone] Wm Ryan MD Unavailable Tatyana Dwyer MD Unavailable Amalia Agosto GC Unavailable [phone] Jaime Wood MD Unavailable [phone] Christen Gallardo MD Unavailable [phone] Ana Fink MD Unavailable Reason for Visit * Reason Onset Date Comments Call Back 10/02/2019 patient call ed about his visit on 10/05/2019, has an child at home with fever and cough, is concern about coming in. Encounter Details Date Type Department Care Team (Late st Contact Info) Description 10/02/2019 Telephone [facility] 65[address] [facility] [address] [place] [address] Jaime Wood MD 76[address] [facility] 103 [place] [address] Call Back (patient call ed about his visit on 10/05/2019, has an child at home with fever and cough, is concern about coming in.) Social History Tobacco Use Types Packs/Day Years [...] PM CDT Legal Sex Male 3:08 AM THIRD MATE Gender Identity Male 12/19/2020 9:52 PM CDT Sexual Orientation Straight 12/19/2020 9: 52 PM CDT documented as of this encounter Miscellaneous Notes * Telephone Encounter - Kash Valente Shameka - 10/02/2019 11:14 AM CDT Reason for call: Other Patient called regarding (reason for call): call back Additional comments: in regards to his up coming visit. Would like it to an virtual or phone. Phone number to reach patient: Cell number on file: Telephone Information: Best Time: anytime Can we leave a detailed message on this number? YES Travel screening: Negative documented in this encounter Plan of Treatment Upcoming Encounters Date Type Department Care Team (Late st Contact Info) Description 08/18/2024 2:00 PM THIRD MATE Virtual Visit [facility] [address] [place] [address] [address] [place] [phone] [place] [address] 11/20/2024 9:30 AM CDT Office Visit [facility] [address] [place] [phone] Tatyana Dwyer MD [address] [place], [place] [address] documented as of this encounter Visit Diagnoses Not on filedocumented in this encounter Additional Health Concerns Infection Onset Date Last Indicated Resolved Time Rule Out COVID-19 10/25/2021 10/25/2021 10/26/2021 12:43 PM CDT COVID-19 10/25/2021 10/25/2021 11/15/2021 11:3 9 PM CDT documented as of this encounter Care Teams Cell Tuber Machine Relationship Specialty Start Date End Date Tatyana Dwyer MD [address] [place] [address] PCP - General Internal Medicine 06/01/19 Tatyana Dwyer MD [address] [place] [address] Assigned PCP 05/31/19 10/15/20 Annalee Toussaint PA-C 6363 [facility] 500 [place] [address] Physician Revenue Stamper Physician Revenue Stamper - Medical 07/15/19 Cr Fung MD [address] [place] [address] 394 [place] [address] Urology 07/15/19 Bianca Rubalcava, RN Specialty Estimation Manager Urology 07/15/19 Keegan Montemayor MD Assigned Heart and Vascular Provider 04/08/20 12/27/20 Joselin Andrade PA-C [address] [place] [address] Assigned Pediatric Specialist Provider 04/08/20 07/17/20 [place] [address] [place] [address] Assigned Surgical Provider 04/08/20 07/22/21 Jim Mark MD [address] [place] [address] Assigned Musculoskeletal Provider 04/08/20 02/11/21 Jaime Wood MD [address] [place] [address] Assigned Sleep Provider 04/08/2004/08 Annalee Toussaint PA-C [address] [place] [address] Assigned OBGYN Provider 08/31/20 1 Honey Jackson APRN VP RHEUMATOLOGY [address] [place] [address] Assigned PCP 10/16/20 02/04/21 Wm Ryan MD [address] [place] [address] Resident Student in organized health care education/training program 02/01/21 Tatyana Dwyer MD [address] [place] [address] Assigned PCP 02/05/21 Amalia Agosto GC [address] [place], [place] 726194 Assigned OBGYN Provider 05/07/21 07/15/21 Jaime Wood MD [address] [address] Assigned Sleep Provider 07/09/21 [place] [address] Assigned Endocrinology Provider 11/18/21 Ana Fink MD [address] [place] [address] Fellow Gastroenterology 10/16/22 documented as of this encounter
--- OUTSIDE RECORDS SUMMARY | 2024-07-16 16:28 | XMS_ITS | Encounter Summary ---
Author Organization [place] Address [address] [place] [address] Care Team Providers Care Supervisor Component Assembler Name Role Phone Tatyana Dwyer MD Primary Care P rolorettader Tatyana Dwyer MD Unavailable Annalee Toussaint-C Unavailable Cr Fung MD Unavailable Bianca Rubalcava RN Unavailable [phone] Keegan Montemayor MD Unavailable Un available Joselin Andrade PA-C Unavailable Steven Tatum MD Unavailable Jim Mark MD Unavailable [phone] Jaime Wood MD Unavailable [phone] Annalee Toussaint-C Unavailable [phone] Honey Jackson APRN, CNP Unavailable + [phone] Wm Ryan MD Unavailable [phone] Tatyana Dwyer MD Unavailable Amalia Agosto GC Unavailable [phone] Jaime Wood MD Unavailable [phone] Christen Gallardo MD Unavailable [phone] Ana Fink MD Unavailable Encounter Details Date Type Department Care Team (Late st Contact Info) Description 09/04/2019 MyC Medical Advice [facility] Heart [facility] [address] [facility] [address] [place] [phone] Lorrie Ray RN Social History Tobacco Use Types Packs/Day [...] PM CDT Legal Sex Male 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 Gender Identity Male 12/19/2020 9:52 PM CDT Sexual Orientation Straight 12/19/2020 9: 52 PM CDT documented as of this encounter Plan of Treatment Upcoming Encounters Date Type Department Care Team (Late st Contact Info) Description 08/18/2024 2:00 PM RESOURCE DEVELOPMENT DIRECTOR Virtual Visit [address] [place] [phone] [place] [address] 11/20/2024 9:30 AM CDT Office Visit [facility] [address] [place] [phone] Tatyana Dwyer MD [address] [place], [place] [address] documented as of this encounter Visit Diagnoses Not on filedocumented in this encounter Additional Health Concerns Infection Onset Date Last Indicated Resolved Time Rule Out COVID-19 10/25/2021 10/25/2021 10/26/2021 12:43 PM CDT COVID-19 10/25/2021 10/25/2021 11/15/2021 11:3 9 PM CDT documented as of this encounter Care Teams Supervisor Component Assembler Relationship Specialty Start Date End Date Tatyana Dwyer MD [address] [place] [address] PCP - General Internal Medicine 06/01/19 Tatyana Dwyer MD [address] [place] [address] Assigned PCP 05/31/19 10/15/20 Annalee Toussaint PA-C [address] [address] Physician Footwear Sales Representative Physician Footwear Sales Representative - Medical 07/15/19 Cr Fung MD 420 [facility] 394 [place] [address] Urology 07/15/19 Bianca Rubalcava, RODNEY Specialty Agriculture Teacher Urology 07/15/19 Keegan Montemayor MD Assigned Heart and Vascular Provider 04/08/20 12/27/20 Joselin Andrade PA-C [address] [place] [address] Assigned Pediatric Specialist Provider 04/08/20 07/17/20 [place] [address] [place] [address] Assigned Surgical Provider 04/08/20 07/22/21 Jim Mark MD [address] [place] [address] Assigned Musculoskeletal Provider 04/08/20 02/11/21 Jaime Wood MD [address] [facility] [place] [address] Assigned Sleep Provider 04/08/2004/08 Annalee Toussaint PA-C [address] [place], [place] [address] Assigned OBGYN Provider 08/31/20 1 Honey Jackson APRN CNP [address] [place], [place] 514167 Assigned PCP 10/16/20 02/04/21 Wm Ryan MD [address] [place], [place] 224405 Resident Student in organized health care education/training program 02/01/21 Tatyana Dwyer MD [address] [place], [place] [address] Assigned PCP 02/05/21 Amalia Agosto GC [address] [place] [address] Assigned OBGYN Provider 05/07/21 07/15/21 Jaime Wood MD [address] [place] [address] Assigned Sleep Provider 07/09/21 [place] [address] Assigned Endocrinology Provider 11/18/21 Ana Fink MD [address] [place] [address] Fellow Gastroenterology 10/16/22 documented as of this encounter
--- OUTSIDE RECORDS SUMMARY | 2024-07-16 16:28 | XMS_ITS | Encounter Summary ---
Author Organization [facility] Address [address] [place] [address]. [place] [address] Care Team Providers Care Welding Machine Operator Gas Metal Arc Name Role Phone Tatyana Dwyer MD Primary Care P rovider Annalee Toussaint PA-C Unavailable [phone] Cr Fung MD Unavailable Bianca Rubalcava RN Unavailable [phone] Wm Ryan MD Unavailable Tatyana Dwyer MD Unavailable Christen Gallardo MD Unavailable [phone] Ana Fink MD Unavailable Encounter Details Date Type Department Care Team (Late st Contact Info) Description 06/23/2024 9:00 AM [facility] [address] [place] [address] Hypogonadism in male; MINA (nonalcoholic steatohepatitis) Social History Tobacco Use Types Packs/Day Years [...] re latives? Twice a week 11/16/2023 Attends [employer] Not on file 11/15 Active Member [...] Date Recorded PHQ-2 Score 0 11/21/2023 [facility] - Occupational [...] in an abandoned building, in an overnight halfway, or couch-surfing.) Yes 11/16/2023 Are you worried [...] PM CDT Legal Sex Male 3:08 AM GUIDE EXCURSION Gender Identity Male 12/19/2020 9:52 PM CDT Sexual Orientation Straight 12/19/2020 9: 52 PM CDT documented as of this encounter Plan of Treatment Upcoming Encounters Date Type Department Care Team (Late st Contact Info) Description 08/18/2024 2:00 PM GUIDE EXCURSION Virtual Visit [address] [phone] [place] [address] 11/20/2024 9:30 AM CDT Office Visit [address] [facility] [address] [place] [phone] Tatyana Dwyer MD [address] [place], [place] [address] documented as of this encounter Procedures Procedure Name Priority Date/Time Associated Diagnosis Comments TESTOSTERONE FREE AND TOTAL Routine 06/23/2024 9:02 AM GUIDE EXCURSION Hypogonadism in male SEX HORMONE BINDING GLOBULIN Routine 06/23/2024 9:02 AM GUIDE EXCURSION Hypogonadism in male TESTOSTERONE FREE AND TOTAL Routine 06/23/2024 9:02 AM GUIDE EXCURSION Hypogonadism in male HEPATIC FUNCTION PANEL Routine 06/23/2024 9:02 AM GUIDE EXCURSION MINA (nonalcoholic steatohepatitis) HEMOGLOBIN AND HEMATOCRIT Routine 06/23/2024 9:02 AM GUIDE EXCURSION Hypogonadism in male documented in this encounter Results * Testosterone Free and Total (06/23/2024 9:02 AM GUIDE EXCURSION) Free Testosterone Calculated 16.15 ng/dL 06/25/2024 10:05 AM GUIDE EXCURSION [facility] Comment: Male Aneesh Ranges: Aneesh Stage I: Less than or equal to 0.37 ng/dL Aneesh Stage II: 0.03-2.1 ng/dL Aneesh Stage III: 0.10-9.8 ng/dL Aneesh Stage IV: 3.5-16.9 ng/dL Aneesh Stage V: 4.1-23.9 ng/dL Testosterone Total 668 240 - 950 ng/dL 06/25/2024 10:05 AM GUIDE EXCURSION [facility] Blood BLOOD SPECIMEN / Unknown Venipuncture / Unknown 06/23/2024 9:02 AM GUIDE EXCURSION 06/23/2024 9:02 AM GUIDE EXCURSION Narrative [facility] - 06/25/2024 10:05 AM GUIDE EXCURSION This test was developed and its performance characteristics determined by the [facility], Special [facility] Laboratory. It has not been cleared or approved by the FDA. The laboratory is regulated under CLIA as qualified to perform high-complexity testing. This test is used for clinical purposes. It should not be regarded as investigational or for research. us Christen Gallardo MD LAB - BLOOD ORDERABLES Final Re sult [facility] [address] [facility], Room [address] [place] [id number] * Sex Hormone Binding Globulin (06/23/2024 9:02 AM GUIDE EXCURSION) Sex Hormone Binding Globulin 28 11 - 80 nmol/L 06/23/2024 4:30 PM GUIDE EXCURSION [facility] Blood BLOOD SPECIMEN / Unknown Venipuncture / Unknown 06/23/2024 9:02 AM GUIDE EXCURSION 06/23/2024 9:02 AM GUIDE EXCURSION Christen Gallardo MD LAB - BLOOD ORDERABLES Final Re sult [facility] [address] [facility], [address] [phone] * Hepatic panel (Albumin, ALT, AST, Bili, Alk Phos, TP) (06/23/2024 9:02 AM GUIDE EXCURSION) [facility] Protein Total 7.2 6.4 - 8.3 g/dL 06/23/2024 4:27 PM GUIDE EXCURSION [facility] Albumin 4.3 3.5 - 5.2 g/dL 06/23/2024 4:27 PM GUIDE EXCURSION [facility] Bilirubin Total 0.5 <=1.2 mg/dL 06/23/2024 4:27 PM GUIDE EXCURSION [facility] Alkaline Phosphatase 50 40 - 150 U/L 06/23/2024 4:27 PM GUIDE EXCURSION [facility] AST 31 0 - 45 U/L 06/23/2024 4:27 PM GUIDE EXCURSION [facility] ALT 26 0 - 70 U/L 06/23/2024 4:27 PM GUIDE EXCURSION [facility] Bilirubin Direct <0.20 0.00 - 0.30 mg/dL 06/23/2024 4:27 PM GUIDE EXCURSION [facility] Blood BLOOD SPECIMEN / Unknown Venipuncture / Unknown 06/23/2024 9:02 AM GUIDE EXCURSION 06/23/2024 9:02 AM GUIDE EXCURSION us Christen Gallardo MD LAB - BLOOD ORDERABLES Final Re sult [facility] [address] [facility], [address] [place] [address] * Hemoglobin and hematocrit (06/23/2024 9:02 AM GUIDE EXCURSION) Hemoglobin 16.3 13.3 - 17.7 g/dL 06/23/2024 9:04 AM GUIDE EXCURSION [facility] Hematocrit 48.4 40.0 - 53.0 % 06/23/2024 9:04 AM GUIDE EXCURSION [facility] Blood BLOOD SPECIMEN / Unknown Venipuncture / Unknown 06/23/2024 9:02 AM GUIDE EXCURSION 06/23/2024 9:02 AM GUIDE EXCURSION us Christen Gallardo MD LAB - BLOOD ORDERABLES Final Re sult LABORATORY [facility] [address] [facility] (no room number, 1st floor of clinic) [place] [address], [facility] documented in this encounter Visit Diagnoses Diagnosis Hypogonadism in male MINA (nonalcoholic steatohepatitis) Other chronic nonalcoholic liver disease documented in this encounter Care Teams Welding Machine Operator Gas Metal Arc Relationship Specialty Start Date End Date Tatyana Dwyer MD [address] [place], [place] [phone] PCP - General Internal Medicine 06/01/19 Annalee Toussaint, DUSTYC [address] [facility] 500 [place], [place] [address] Physician Ranch Manager Physician Ranch Manager - Medical 07/15/19 Cr Fung MD [address] [id number] Urology 07/15/19 Bianca Rubalcava, RODNEY Specialty Survey Questionnaire Designer Urology 07/15/19 Wm Ryan MD [address] [place], [place] [address] Resident Student in organized health care education/training program 02/01/21 Tatyana Dwyer MD [address] [place] [address] Assigned PCP 02/05/21 [place] [address] Assigned Endocrinology Provider 11/18/21 Ana Fink MD [address] [place] [address] Fellow Gastroenterology 10/16/22 documented as of this encounter
--- OUTSIDE RECORDS SUMMARY | 2024-07-16 16:28 | XMS_ITS | Encounter Summary ---
Author Organization [facility] Address [address] [place] [address] Care Team Providers Care Dishwashing Machine Repairer Name Role Phone Tatyana Dwyer MD Primary Care P rolorettader Tatyana Dwyer MD Unavailable Annalee Toussaint-C Unavailable [phone] Cr Fung MD Unavailable Bianca Rubalcava RN Unavailable [phone] Keegan Montemayor MD Unavailable Un available Joselin Andrade PA-C Unavailable Steven Tatum MD Unavailable Jim Mark MD Unavailable [phone] Jaime Wood MD Unavailable [phone] Annalee Toussaint-C Unavailable [phone] Honey Jackson APRN, CNP Unavailable + [phone] Wm Ryan MD Unavailable Tatyana Dwyer MD Unavailable Amalia Agosto GC Unavailable [phone] Jaime Wood MD Unavailable [phone] Christen Gallardo MD Unavailable [phone] Ana Fink MD Unavailable Encounter Details Date Type Department Care Team (Late st Contact Info) Description 01/19/2020 MyC Medical Advice [facility] Dermatologic Surgery [address] [facility] 3rd [place] [address] [place] [address] [place] [address] Social History Tobacco Use Types Packs/Day Years [...] PM CDT Legal Sex Male 3:08 AM EP TECHNOLOGIST Gender Identity Male 12/19/2020 9:52 PM CDT [...] st Contact Info) Description 08/18/2024 2:00 PM EP TECHNOLOGIST Virtual Visit [facility] [address] [place] [address] Christen Gallardo [place] [address] 11/20/2024 9:30 AM CDT Office Visit [address] [place] [address] [place] [phone] Tatyana Dwyer MD [address] [place], [place] [address] documented as of this encounter Visit Diagnoses Not on filedocumented in this encounter Additional Health Concerns Infection Onset Date Last Indicated Resolved Time Rule Out COVID-19 10/25/2021 10/25/2021 10/26/2021 12:43 PM CDT COVID-19 10/25/2021 10/25/2021 11/15/2021 11:3 9 PM CDT documented as of this encounter Care Teams Dishwashing Machine Repairer Relationship Specialty Start Date End Date Tatyana Dwyer MD [address] [place] [address] PCP - General Internal Medicine 06/01/19 Tatyana Dwyer MD [address] [place], [place] [address] Assigned PCP 05/31/19 10/15/20 Annalee Toussaint PA-C [address] [facility] [address] [address] Physician Gas Flow Regulator Physician Gas Flow Regulator - Medical 07/15/19 Cr Fung MD 420 [facility] [address] [place], [place] [address] Urology 07/15/19 Bianca Rubalcava, RN Specialty Well Drill Operator Rotary Drill Urology 07/15/19 Keegan Montemayor MD Assigned Heart and Vascular Provider 04/08/20 12/27/20 Joselin Andrade PA-C [address] [place] [address] Assigned Pediatric Specialist Provider 04/08/20 07/17/20 [place] [address] [place] [address] Assigned Surgical Provider 04/08/20 07/22/21 Jim Mark MD [address] [place], [place] [address] Assigned Musculoskeletal Provider 04/08/20 02/11/21 Jaime Wood MD [address] [place] [place] [address] Assigned Sleep Provider 04/08/2004/08 Annalee Toussaint PA-C [address] [place] [address] [place], [place] [address] Assigned OBGYN Provider 08/31/20 1 Honey Jackson APRN INTERNATIONAL TRAVEL CONSULTANT [address] [place], [place] [address] Assigned PCP 10/16/20 02/04/21 Wm Ryan MD [address] [place] [address] Resident Student in organized health care education/training program 02/01/21 Tatyana Dwyer MD [address] [place], [place] [id number] Assigned PCP 02/05/21 Amalia Agosto GC [address] [place], [place] [address] Assigned OBGYN Provider 05/07/21 07/15/21 Jaime Wood MD [address] [facility] [address] [place], [place] [address] Assigned Sleep Provider 07/09/21 Christen Gallardo [place] [address] Assigned Endocrinology Provider 11/18/21 Ana iFnk MD [address] [place] [address] Fellow Gastroenterology 10/16/22 documented as of this encounter
--- OUTSIDE RECORDS SUMMARY | 2024-07-16 16:29 | XMS_ITS | Clinical Summary ---
Author Organization [place] Address [facility] [place] [address] Care Team Providers Care Sweeping Compound Blender Name Role Phone Tatyana Dwyer MD Primary Care P rovider Annalee Toussaint-C Unavailable [phone] Cr Fung MD Unavailable Bianca Rubalcava RN Unavailable [phone] Wm Ryan MD Unavailable Tatyana Dwyer MD Unavailable Christen Gallardo MD Unavailable [phone] Ana Fink MD Unavailable Allergies Active Allergy Reactions Criticality Noted Date Comments No Known Drug Allergy 09/25/2010 Medications MULTIPLE VITAMIN PO Active Probiotic Product (PROBIOTIC ADVANCED PO) Take by mouth daily Active omega 3 1000 MG CAPS Take 1 g by mouth daily 90 capsule 11/25/19 16 Active hydrochlorothia zide (HYDRODIURIL) 25 MG tabletIndicatio ns:Tachycardia, HTN, goal below 140/90 TAKE 1 TO 2 TABLETS BY MOUTH DAILY 140 tablet 3 11/21/19 24 Active lisinopril (ZESTRIL) 20 MG tabletIndicatio ns:HTN, goal below 140/90 Take 1 tablet (20 mg) by mouth daily 90 tablet 3 11/21/19 24 Active Syringe/Needle, Disp, 22G X 1 3 ML MISCIndications :Hypogonadism in male 1 each every 14 days 7 each 3 12/24/19 24 Active testosterone cypionate (DEPOTESTOSTERO NE) 200 MG/ML injectionIndica tions:Hypogonad ism in male Inject 0.75 mLs (150 mg) into the muscle every 14 days. 2 mL 5 03/06/20 24 Active WEGOVY 1.7 MG/0.75ML penIndications: Class 3 severe obesity with serious comorbidity and body mass index (BMI) of 45.0 to 49.9 in adult, unspecified obesity type (H) INJECT 1.7 MG SUBCUTANEOUS ONCE WEEKLY 3 mL 5 04/13/20 24 Active tadalafil (CIALIS) 10 MG tabletIndicatio ns:Erectile dysfunction, unspecified erectile dysfunction type Take 1 tablet by mouth daily as needed, take pre intercourse as directed. 30 tablet 2 04/20/20 24 Active Semaglutide-Dirk ght Management (WEGOVY) 2.4 MG/0.75ML penIndications: Class 3 severe obesity with serious comorbidity and body mass index (BMI) of 45.0 to 49.9 in adult, unspecified obesity type (H) Inject 2.4 mg subcutaneously once a week. 3 mL 3 05/28/20 24 Active nebivolol (BYSTOLIC) 2.5 MG tabletIndicatio ns:Tachycardia, HTN, goal below 140/90 Take 1 tablet (2.5 mg) by mouth daily. 90 tablet 07/02/19 25 Active nebivolol (BYSTOLIC) 2.5 MG tabletIndicatio ns:Tachycardia, HTN, goal below 140/90 Take 1 tablet (2.5 mg) by mouth daily 90 tablet 3 11/21/19 24 025 Discontin ued(Zack eous Entry (No AVS)) Active Problems Problem Noted Date Diagnosed Date Abnormal CT scan, kidney 11/21/2023 Heartburn 11/21/2023 Periumbilical pain 11/21/2023 Right lower quadrant pain 11/21/2023 Adenom colon polyp -- needs colonoscopy 2029 Diverticular disease of large intestine 10/09/19 Polyp of colon 10/09/2023 Family history of colonic polyps 01/26/2021 Family history of malignant neoplasm of duodenum 01/26/2021 Genitofemoral neuralgia, right 12/02/2019 Overview (12/02/2019): Added automatically from request for surgery [id number] Family history of acute heart failure ( mother a t age 56) 06/27/2018 Kidney cyst, - small hemorrhagic cyst [place] 201708/05/2017 HTN, goal below 140/90 08/05/2017 White coat syndrome with hypertension 01/01/2017 Class 3 severe obesity with body mass index (BMI) of 45.0 to 49.9 in adult 11/25/2015 CARDIOVASCULAR SCREENING; LDL GOAL LESS THAN 130 11/25/2015 Gastroesophageal reflux disease without esophagi tis 11/25/2015 Obesity with body mass index 30 or greater 12/29 Seasonal allergies Resolved Problems Problem Noted Date Diagnosed Date Resolved Date Pelvic pain in male 01/11/2020 05/17/20 20 Kidney cyst, - small hemorrh agic cyst as per [place] CT 08/05/2017 08/05/2017 Essential hypertension, benign 11/25/2015 08/05/2017 Encounters Date Type Department Care Team Description 07/02/2024 [facility] [address] [place] [address] Tatyana Dwyer MD Refill Request 07/01/[address] [place] [phone] Christen Gallardo MD Prior Auth - Medication (Wegovy 2.4- [place] APPROVED) 06/30/2024 [facility] [address] [place] [phone] Christen Gallardo MD 06/23/2024 9:00 AM PATIENT SERVICE COORDINATOR Lab [facility] [address] [place] [phone] Hypogonadism in male; MINA (nonalcoholic steatohepatitis) 06/23/2024 Travel 06/18/2024 Travel 06/13/2024 Refill [facility] [address] [place] [address] Tatyana Dwyer MD Medication Refill 05/22/2024 [facility] [address] [place] [phone] Christen Gallardo MD Class 3 severe obesity with serious comorbidity and body mass index (BMI) of 45.0 to 49.9 in adult, unspecified obesity type (H) (Primary Dx) 04/17/2024 Refill [facility] [address] [place] [address] [address] [place] [phone] Christen Gallardo MD Medication Refill from Last 3 Months Immunizations Name Administration Dates Next Due COVID-19 MONOVALENT 12+ (Pfizer) 05/25/2021,10/16,10/18/2020 Flu, Unspecified 02/16/2023,02/18/2020 Influenza (IIV3) PF 02/27/2021, 8,03/03/2017,03/06,02/25/2012,02/18/2011,04/02/2010 Influenza (prior to 2023) 01/18/2015 Influenza Vaccine (Flucelvax Quadrivalent) 02/27/2021 Influenza Vaccine >6 months,quad, PF 02/2023,02/16/2019,03/03/2017,01/24,02/25/2014 Influenza Vaccine IM Ages 6- 35 Months 4 Valent (PF) 03/05/2013 Influenza,INJ,MDCK,PF,Quad >6mo(Flucelvax) 03/06/2022 Meningococcal (Menomune ) 07/06/2003 TDAP (Adacel,Boostrix) 11/25/2021 TDAP Vaccine (Adacel) 09/27/2010 Family History Medical History Relation Comments Cancer Father Duodenal/colon c ancer Colon Cancer Father Hyperlipidemia Father Lipids Father Other Cancer Father Duodenal Cancer Cerebrovascular Disease Maternal Grandfather TIA in 2019 Hyperlipidemia Maternal Grandfather Hypertension Maternal Grandfather Eye Disorder Maternal Grandmother Depression Mother Heart Disease Mother Mild heart failu re Hypertension Mother Mental Illness Mother Psychotic Disorder Mother Manic Depress ion, General Depression/anxiety Alzheimer Disease Paternal Grandfather Heart Disease Paternal Grandmother Hypertension Paternal Grandmother Prostate Cancer Paternal Uncle No Known Problems Sister Melanoma No family hx of Skin Cancer No family hx of Relation Status Comments Father Maternal Grandfather Alive Maternal Grandmother Alive Mother Alive Paternal Grandfather Paternal Grandmother Paternal Uncle Sister Alive Social History Tobacco Use Types Packs/Day Years Used Date Smoking Tobacco: Never Passive Smoke Exposure: Never Smokeless Tobacco: Never Tobacco Cessation:Counseling Given: No Alcohol Use Standard Drinks/Week Comments Yes 1 (1 standard drink = 0.6 oz pur e alcohol) 1 or less drinks per week Social Connection and Isolation Panel [NHANES] A nswer Date Recorded Frequency of Communication with Friends and Fami ly Not on file 11/16/2023 How often do you get together with friends or re latives? Twice a week 11/16/2023 Attends Sikhism Services Not on file 11/15 Active Member [...] Answer Date Recorded PHQ-2 Score 0 11/21/2023 [facility] - [facility]ational Stress Questionnaire Answer Date Recorded [...] Date Recorded Do you have housing? (Leonel asencio is defined as stable permanent housing and [...] PM CDT Legal Sex Male 3:08 AM PATIENT SERVICE COORDINATOR Gender Identity Male 12/19/2020 9:52 PM CDT Sexual Orientation Straight 12/19/2020 9: 52 PM CDT Last Filed Vital Signs Vital Sign Reading Time Taken Comments Blood Pressure 129/83 11/21/2023 9:02 AM CDT Pulse 90 11/21/2023 9:02 AM CDT Temperature 36.3 C (97.4 F) 11/21/2023 9:02 AM CDT Respiratory Rate 18 11/21/2023 9:02 AM CDT Oxygen Saturation 99% 11/21/2023 9:02 AM CDT Inhaled Oxygen Concentration - - Weight 146.3 kg (322 lb 9.6 oz) 11/21/2023 9:02 AM CDT Height 182.9 cm (6' 0.01) 11/21/2023 9:02 AM CD T Body Mass Index 43.74 11/21/2023 9:02 AM CDT Plan of Treatment Upcoming Encounters Date Type Department Care Team (Late st Contact Info) Description 08/18/2024 2:00 PM PATIENT SERVICE COORDINATOR Virtual Visit [address] [place] [phone] [place] [address] 11/20/2024 9:30 AM CDT Office Visit [facility] [address] [place] [phone] Tatyana Dwyer MD [address] [place], [place] [phone] Health Maintenance Due Date Last Done Comments CT COLONOGRAPHY 1985 FIT 1985 FLEX SIG 1985 sDNA (Cologuard) 1985 HEPATITIS B IMMUNIZATION (1 of 3 - 19+ 3-dose series) 2004 ANNUAL REVIEW OF HM ORDERS 06/21/2023 06/21/2022 PHQ-2 (once per calendar year) 2024 11/21/2023, 06/21/2022, 11/16/2021, Additional history exists BMP 11/20/2024 11/21/2023, 03/17, 12/03/2022, Additional history exists YEARLY PREVENTIVE VISIT 11/20/2024 11/21/19, 01/26/2021, 08/12/2019, Additional history exists GLUCOSE 11/20/2026 11/21/2023, 03/17, 12/03/2022, Additional history exists COLONOSCOPY 10/08/2028 10/09/2023, 09/16, 07/17/2018, Additional history exists COLORECTAL CANCER SCREENING 10/08/2028 ADVANCE CARE PLANNING 11/20/2028 11/21/2023 , 01/26/2021, 01/26/2021 (Declined) DTAP/TDAP/TD IMMUNIZATION (3 - Td or Tdap) 11/26/2031 11/25/2021, 09/27/2010 ZOSTER IMMUNIZATION (1 of 2) 08/31/2035 RSV VACCINE (1 - 1-dose 75+ series) 2060 MENINGITIS IMMUNIZATION Aged Out 07/06/2003 No l onger eligible based on patient's age to complete this topic HIV SCREENING Completed 08/12/2019 HEPATITIS C SCREENING Completed 12/03/2022, 020 INFLUENZA VACCINE Completed 06/03/2024, , 02/16/2023, Additional history exists COVID-19 Vaccine Completed 06/20/2024, , 03/30/2022, Additional history exists HPV IMMUNIZATION Aged Out No longer e ligible based on patient's age to complete this topic Pneumococcal Vaccine: Pediatrics (0 to 5 Years) and At-Risk Patients (6 to 49 Years) Aged Out No longer eligible based on patient's age to complete this topic RSV MONOCLONAL ANTIBODY Aged Out No l onger eligible based on patient's age to complete this topic Procedures Procedure Name Priority Date/Time Associated Diagnosis Comments TESTOSTERONE FREE AND TOTAL Routine 06/23/2024 9:02 AM PATIENT SERVICE COORDINATOR Hypogonadism in male TESTOSTERONE FREE AND TOTAL Routine 06/23/2024 9:02 AM PATIENT SERVICE COORDINATOR Hypogonadism in male SEX HORMONE BINDING GLOBULIN Routine 06/23/2024 9:02 AM PATIENT SERVICE COORDINATOR Hypogonadism in male HEPATIC FUNCTION PANEL Routine 9:02 AM PATIENT SERVICE COORDINATOR MINA (nonalcoholic steatohepatitis) HEMOGLOBIN AND HEMATOCRIT Routine 06/23/2024 9:02 AM PATIENT SERVICE COORDINATOR Hypogonadism in male COMPREHENSIVE METABOLIC PANEL Routine 11/21/2023 10:11 AM CDT Routine general medical examination at a [facility] facility COLONOSCOPY - HIM SCAN 4 12:00 AM CDT HEPATITIS C SCREEN REFLEX TO HCV RNA QUANT AND GENOTYPE Routine 12/03/2022 8:43 AM CDT LFT elevation HIV ANTIGEN ANTIBODY COMBO Routine 08/12/2019 7:06 AM PATIENT SERVICE COORDINATOR Encounter for preventive health examination from Last 3 Months or Most Recently Relevant to Health Maintenance Results * Testosterone Free and Total (06/23/2024 9:02 AM PATIENT SERVICE COORDINATOR) Free Testosterone Calculated 16.15 ng/dL 06/25/2024 10:05 AM PATIENT SERVICE COORDINATOR [facility] Comment: Male Aneesh Ranges: Aneesh Stage I: Less than or equal to 0.37 ng/dL Aneesh Stage II: 0.03-2.1 ng/dL Aneesh Stage III: 0.10-9.8 ng/dL Aneesh Stage IV: 3.5-16.9 ng/dL Aneesh Stage V: 4.1-23.9 ng/dL Testosterone Total 668 240 - 950 ng/dL 06/25/2024 10:05 AM PATIENT SERVICE COORDINATOR [facility] Blood BLOOD SPECIMEN / Unknown Venipuncture / Unknown 06/23/2024 9:02 AM PATIENT SERVICE COORDINATOR 06/23/2024 9:02 AM PATIENT SERVICE COORDINATOR Narrative [facility] - 06/25/2024 10:05 AM PATIENT SERVICE COORDINATOR This test was developed and its performance characteristics determined by the [facility], [facility] Laboratory. It has not been cleared or approved by the FDA. The laboratory is regulated under CLIA as qualified to perform high-complexity testing. This test is used for clinical purposes. It should not be regarded as investigational or for research. us Christen Gallardo MD LAB - BLOOD ORDERABLES Final Re sult [facility], [address] [place] [phone], [facility] * Sex Hormone Binding Globulin (06/23/2024 9:02 AM PATIENT SERVICE COORDINATOR) Sex Hormone Binding Globulin 28 11 - 80 nmol/L 06/23/2024 4:30 PM PATIENT SERVICE COORDINATOR [facility] Blood BLOOD SPECIMEN / Unknown Venipuncture / Unknown 06/23/2024 9:02 AM PATIENT SERVICE COORDINATOR 06/23/2024 9:02 AM PATIENT SERVICE COORDINATOR Result [facility] Christen Gallardo MD LAB - BLOOD ORDERABLES Final Re sult [facility] [address] [facility], [address] [phone] * Hepatic panel (Albumin, ALT, AST, Bili, Alk Phos, TP) (06/23/2024 9:02 AM PATIENT SERVICE COORDINATOR) [facility] Protein Total 7.2 6.4 - 8.3 g/dL 06/23/2024 4:27 PM PATIENT SERVICE COORDINATOR [facility] Albumin 4.3 3.5 - 5.2 g/dL 06/23/2024 4:27 PM PATIENT SERVICE COORDINATOR [facility] Bilirubin Total 0.5 <=1.2 mg/dL 06/23/2024 4:27 PM PATIENT SERVICE COORDINATOR [facility] Alkaline Phosphatase 50 40 - 150 U/L 06/23/2024 4:27 PM PATIENT SERVICE COORDINATOR [facility] AST 31 0 - 45 U/L 06/23/2024 4:27 PM PATIENT SERVICE COORDINATOR [facility] ALT 26 0 - 70 U/L 06/23/2024 4:27 PM PATIENT SERVICE COORDINATOR [facility] Bilirubin Direct <0.20 0.00 - 0.30 mg/dL 06/23/2024 4:27 PM PATIENT SERVICE COORDINATOR [facility] Blood BLOOD SPECIMEN / Unknown Venipuncture / Unknown 06/23/2024 9:02 AM PATIENT SERVICE COORDINATOR 06/23/2024 9:02 AM PATIENT SERVICE COORDINATOR us Christen Gallardo MD LAB - BLOOD ORDERABLES Final Re sult [facility] [address] [facility], [address] [phone] * Hemoglobin and hematocrit (06/23/2024 9:02 AM PATIENT SERVICE COORDINATOR) Hemoglobin 16.3 13.3 - 17.7 g/dL 06/23/2024 9:04 AM PATIENT SERVICE COORDINATOR [facility] Hematocrit 48.4 40.0 - 53.0 % 06/23/2024 9:04 AM PATIENT SERVICE COORDINATOR [facility] Blood BLOOD SPECIMEN / Unknown Venipuncture / Unknown 06/23/2024 9:02 AM PATIENT SERVICE COORDINATOR 06/23/2024 9:02 AM PATIENT SERVICE COORDINATOR us Christen Gallardo MD LAB - BLOOD ORDERABLES Final Re sult [facility] [address] [facility] (no room number, 1st floor of clinic) [place] [address], [facility] * Comprehensive metabolic panel (11/21/2023 10:11 AM CDT) Sodium 138 135 - 145 mmol/L 11/22/2023 2:50 PM CDT [facility] Comment:Reference intervals for this test were updated on 03/12/2023 to more accurately reflect our healthy population. There may be differences in the flagging of prior results with similar values performed with this method. Interpretation of those prior results can be made in the context of the updated reference intervals. Potassium 4.3 3.4 - 5.3 mmol/L 11/22/2023 2:50 PM CDT [facility] Carbon Dioxide (CO2) 26 22 - 29 mmol/L 11/22/2023 2:50 PM CDT [facility] Anion Gap 12 7 - 15 mmol/L 11/22/2023 2:50 PM CDT [facility] Urea Nitrogen 9.7 6.0 - 20.0 mg/dL 11/22/2023 2:50 PM CDT [facility] Creatinine 1.04 0.67 - 1.17 mg/dL 11/22/2023 2:50 PM CDT [facility] GFR Estimate >90 >60 mL/min/1. 73m2 11/22/2023 2:50 PM CDT [facility] Calcium 9.8 8.6 - 10.0 mg/dL 11/22/2023 2:50 PM CDT [facility] Chloride 100 98 - 107 mmol/L 11/22/2023 2:50 PM CDT [facility] Glucose 87 70 - 99 mg/dL 11/22/2023 2:50 PM CDT [facility] Alkaline Phosphatase 63 40 - 150 U/L 11/22/2023 2:50 PM CDT [facility] AST 32 0 - 45 U/L 11/22/2023 2:50 PM CDT [facility] Comment:Reference intervals for this test were updated on 11/26/2022 to more accurately reflect our healthy population. There may be differences in the flagging of prior results with similar values performed with this method. Interpretation of those prior results can be made in the context of the updated reference intervals. ALT 37 0 - 70 U/L 11/22/2023 2:50 PM CDT [facility] Comment:Reference intervals for this test were updated on 11/26/2022 to more accurately reflect our healthy population. There may be differences in the flagging of prior results with similar values performed with this method. Interpretation of those prior results can be made in the context of the updated reference intervals. Protein Total 7.6 6.4 - 8.3 g/dL 11/22/2023 2:50 PM CDT [facility] Albumin 4.7 3.5 - 5.2 g/dL 11/22/2023 2:50 PM CDT [facility] Bilirubin Total 1.2 <=1.2 mg/dL 11/22/2023 2:50 PM CDT [facility] Patient Fasting > 8hrs? Yes 11/22/2023 2:50 PM CDT [facility] Blood BLOOD SPECIMEN / Unknown Venipuncture / Unknown 11/21/2023 10:11 AM CDT 11/21/2023 10:11 AM CDT us Tatyana Dwyer MD LAB - BLOOD ORD ERABLES Final Result [facility] [address] [facility], [address] [place] [address], [facility] * Colonoscopy - HIM Scan (10/09/2023 12:00 AM CDT) 10/09/2023 us Provider Outside PROCEDURES Final Result * Hepatitis C Screen Reflex to HCV RNA Quant and Genotype (12/03/2022 8:43 AM CDT) Hepatitis C Antibody Nonreactive Nonreactive 12/03/2022 5:34 PM CDT [facility] DO Blood BLOOD SPECIMEN / Unknown Venipuncture / Unknown 12/03/2022 8:43 AM CDT 12/03/2022 8:49 AM CDT Narrative [facility] - 12/03/2022 5:34 PM CDT Assay performance characteristics have not been established for newborns, infants, and children. us Tatyana Dwyer MD LAB - BLOOD ORD ERABLES Final Result [facility]PROT[facility]ENDO Special[facility] Core/Prot/Endo [facility], [address] [phone] * HIV Antigen Antibody Combo [[id number]] (08/12/2019 7:06 AM PATIENT SERVICE COORDINATOR) HIV Antigen Antibody Combo Nonreactive NR^Nonrea ctive 08/12/2019 2:49 PM PATIENT SERVICE COORDINATOR [facility] Comment:HIV-1 p24 Ag & HIV-1 /HIV-2 Ab Not Detected Blood specimen (specimen) 08/12/2019 7:06 AM PATIENT SERVICE COORDINATOR 08/12/2019 7:08 AM PATIENT SERVICE COORDINATOR us Hill Spears MD LAB - BLOOD ORDERAB[place] [address] from Last 3 Months or Most Recently Relevant to Health Maintenance Insurance [facility] COMMERCIAL [facility] Months Of Me Care Teams Sweeping Compound Blender Relationship Specialty Start Date End Date Tatyana Dwyer MD [address] [place] [address] PCP - General Internal Medicine 06/01/19 Annalee Toussaint, DUSTYC [address] [address] Physician Smt Operator Physician Smt Operator - Medical 07/15/19 Cr Fung MD [address] [place] [address] [address] [place] [address] Urology 07/15/19 Bianca Rubalcava, RODNEY Specialty [place] Urology 07/15/19 Wm Ryan MD [address] [place] [id number] Resident Student in organized health care education/training program 02/01/21 Tatyana Dwyer MD [address] [place], [place] [address] Assigned PCP 02/05/21 Christen Gallardo MD [place] [address] Assigned Endocrinology Provider 11/18/21 Ana Fink MD [address] [place] [id number] Fellow Gastroenterology 10/16/22
--- OUTSIDE RECORDS SUMMARY | 2024-07-16 16:29 | XMS_ITS | Encounter Summary ---
Author Organization [place] Address [facility] [place] [address] Care Team Providers Care Optical Worker Name Role Phone Tatyana Dwyer MD Primary Care P rolorettader Annalee Toussaint PA-C Unavailable [phone] Cr Fung MD Unavailable Bianca Rubalcava RN Unavailable [phone] Wm Ryan MD Unavailable [phone] Tatyana Dwyer MD Unavailable Christen Gallardo MD Unavailable [phone] Ana Fink MD Unavailable Reason for Visit * Reason Onset Date Comments Refill Request 07/02/2024 Encounter Details Date Type Department Care Team (Late st Contact Info) Description 07/02/2024 [facility] [place] [address] [place] [address] Tatyana Dwyer MD [address] [place] [address] Refill Request Social History Tobacco Use Types Packs/Day [...] re latives? Twice a week 11/16/2023 Attends Mormonism Services Not on file 11/15 Active Member [...] Recorded PHQ-2 Score 0 11/21/2023 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 Sent Clipyoo message to patient. Thank you, Akira, stationary engineer refrigeration [facility] 5:28 PM 07/02/2024 ME PLATER HELPER documented in this encounter Plan of Treatment Upcoming Encounters Date Type Department Care Team (Late st Contact Info) Description 08/18/2024 2:00 PM CHROME PLATER HELPER Virtual Visit [address] [place] [address] Christen Gallardo MD [place], [place] [phone] 11/20/2024 9:30 AM CDT Office Visit [facility] [address] [place] [address] Tatyana Dwyer MD [address] [place], [place] [address] documented as of this encounter Visit Diagnoses Diagnosis Tachycardia Tachycardia, unspecified HTN, goal below 140/90 Unspecified essential hypertension documented in this encounter Care Teams Optical Worker Relationship Specialty Start Date End Date Tatyana Dwyer MD [address] [place] [address] PCP - General Internal Medicine 06/01/19 Annalee Toussaint PA-C [address] [address] Physician Soil Field Technician Physician Soil Field Technician - Medical 07/15/19 Cr Fung MD [address] [phone] Urology 07/15/19 Bianca Rubalcava, RN Specialty Wing Mailer Machine Operator Urology 07/15/19 Wm Ryan MD [address] [place] [id number] Resident Student in organized health care education/training program 02/01/21 Tatyana Dwyer MD [address] [place] [address] Assigned PCP 02/05/21 [place] [address] Assigned Endocrinology Provider 11/18/21 Ana Fink MD [address] [place] [id number] Fellow Gastroenterology 10/16/22 documented as of this encounter
--- OUTSIDE RECORDS SUMMARY | 2024-07-16 16:29 | XMS_ITS | Referral Summary ---
Author Organization [place] Address [facility] [place] [place] [address] Care Team Providers Care Celebrity Chef Entrepreneur Media Personality Name Role Phone Tatyana Dwyer MD Primary Care P rovider Annalee ToussaintC Unavailable Cr Fung MD Unavailable Bianca Rubalcava RN Unavailable [phone] Wm Ryan MD Unavailable Tatyana Dwyer MD Unavailable Christen Gallardo MD Unavailable [phone] Ana Fink MD Unavailable Encounters Date Type Department Care Team Description 07/02/2024 MyC Medical Advice [facility] [address] [place] [address] Tatyana Dwyer MD Refill Request 07/01/[address] [place] [address] Christen Gallardo MD Prior Auth - Medication (Wegovy 2.4- PA APPROVED) 06/30/2024 MyC Medical Advice [address] [place] [address] Christen Gallardo MD 06/23/2024 Travel 06/23/2024 9:00 AM BOLT MAKER Lab [facility] [address] [place] [address] Hypogonadism in male; MINA (nonalcoholic steatohepatitis) 06/18/2024 Travel 06/13/2024 Refill [facility] [address] [place] [address] Tatyana Dwyer MD Medication Refill 05/22/2024 MyC Medical Advice [address] [phone] Christen Gallardo MD Class 3 severe obesity with serious comorbidity and body mass index (BMI) of 45.0 to 49.9 in adult, unspecified obesity type (H) (Primary Dx) 04/17/[address] [phone] Christen Gallardo MD Medication Refill from Last 3 Months Allergies Active Allergy Reactions Criticality Noted Date [...] (12/02/2019): Added automatically from request for surgery [id number] Family history of acute heart failure ( mother a t age 56) 06/27/2018 Kidney cyst, - small hemorrhagic cyst as per [place] 201708/05/2017 HTN, goal below 140/90 08/05/2017 [...] - small hemorrh agic cyst as per [place] [facility] 08/05/2017 08/05/2017 Essential hypertension, benign 11/25/2015 08/05/2017 Immunizations Name Administration Dates Next Due COVID-19 MONOVALENT 12+ (Pfizer) 05/25/2021,10/16,10/18/2020 Flu, Unspecified 02/16/2023,02/18/2020 Influenza (IIV3) PF 02/27/2021, 8,03/03/2017,03/06,02/25/2012,02/18/2011,04/02/2010 Influenza (prior to 2023) 01/18/2015 Influenza Vaccine (Flucelvax Quadrivalent) 02/27/2021 Influenza Vaccine >6 months,quad, PF 02/2023,02/16/2019,03/03/2017,01/24,02/25/2014 Influenza Vaccine IM Ages 6- 35 Months 4 Valent (PF) 03/05/2013 Influenza,INJ,MDCK,PF,Quad >6mo(Flucelvax) 03/06/2022 Meningococcal (Menomune ) 07/06/2003 TDAP (Adacel,Boostrix) 11/25/2021 TDAP Vaccine (Adacel) 09/27/2010 Social History Tobacco Use Types Packs/Day Years [...] re latives? Twice a week 11/16/2023 Attends [employer] Not on file 11/15 Active Member [...] Answer Date Recorded PHQ-2 Score 0 11/21/2023 [facility] of Occupat ional Health - Occupational Stress [...] PM CDT Legal Sex Male 3:08 AM BOLT MAKER Gender Identity Male 12/19/2020 9:52 PM CDT [...] st Contact Info) Description 08/18/2024 2:00 PM BOLT MAKER Virtual Visit [place] [address] [address] [address] Christen Gallardo MD [facility] [place] [address] 11/20/2024 9:30 AM CDT Office Visit [facility] [address] [place] [phone] Tatyana Dwyer MD [address] [place] [address] Procedures Procedure Name Priority Date/Time Associated Diagnosis Comments TESTOSTERONE FREE AND TOTAL Routine 06/23/2024 9:02 AM BOLT MAKER Hypogonadism in male TESTOSTERONE FREE AND TOTAL Routine 06/23/2024 9:02 AM BOLT MAKER Hypogonadism in male SEX HORMONE BINDING GLOBULIN Routine 06/23/2024 9:02 AM BOLT MAKER Hypogonadism in male HEPATIC FUNCTION PANEL Routine 9:02 AM BOLT MAKER MINA (nonalcoholic steatohepatitis) HEMOGLOBIN AND HEMATOCRIT Routine 06/23/2024 9:02 AM BOLT MAKER Hypogonadism in male COMPREHENSIVE METABOLIC PANEL Routine 11/21/2023 10:11 AM CDT Routine general medical examination at a [facility] COLONOSCOPY - HIM SCAN 4 12:00 AM CDT HEPATITIS C SCREEN REFLEX TO HCV RNA QUANT AND GENOTYPE Routine 12/03/2022 8:43 AM CDT LFT elevation HIV ANTIGEN ANTIBODY COMBO Routine 08/12/2019 7:06 AM BOLT MAKER Encounter for preventive health examination from Last 3 Months or Most Recently Relevant to Health Maintenance Results * Testosterone Free and Total (06/23/2024 9:02 AM BOLT MAKER) Free Testosterone Calculated 16.15 ng/dL 06/25/2024 10:05 AM BOLT MAKER [facility] Comment: Male Aneesh Ranges: Aneesh Stage I: Less than or equal to 0.37 ng/dL Aneesh Stage II: 0.03-2.1 ng/dL Aneesh Stage III: 0.10-9.8 ng/dL Aneesh Stage IV: 3.5-16.9 ng/dL Aneesh Stage V: 4.1-23.9 ng/dL Testosterone Total 668 240 - 950 ng/dL 06/25/2024 10:05 AM BOLT MAKER SPECIAL DRUG/BGEN Blood BLOOD SPECIMEN / Unknown Venipuncture / Unknown 06/23/2024 9:02 AM BOLT MAKER 06/23/2024 9:02 AM BOLT MAKER Narrative SPECIAL DRUG/BGEN - 06/25/2024 10:05 AM BOLT MAKER This test was developed and its performance characteristics determined by the [facility], Special Chemistry Laboratory. It has not been cleared or approved by the FDA. The laboratory is regulated under CLIA as qualified to perform high-complexity testing. This test is used for clinical purposes. It should not be regarded as investigational or for research. Christen Gallardo MD LAB - BLOOD ORDERABLES Final Re sult SPECIAL DRUG/BGEN Special Drug/BGEN 500 [facility], [address] * Sex Hormone Binding Globulin (06/23/2024 9:02 AM BOLT MAKER) Sex Hormone Binding Globulin 28 11 - 80 nmol/L 06/23/2024 4:30 PM BOLT MAKER LABORATORY Blood BLOOD SPECIMEN / Unknown Venipuncture / Unknown 06/23/2024 9:02 AM BOLT MAKER 06/23/2024 9:02 AM BOLT MAKER Christen Gallardo MD LAB - BLOOD ORDERABLES Final Re sult LABORATORY [facility] 500 [facility], [address] * Hepatic panel (Albumin, ALT, AST, Bili, Alk Phos, TP) (06/23/2024 9:02 AM BOLT MAKER) Protein Total 7.2 6.4 - 8.3 g/dL 06/23/2024 4:27 PM BOLT MAKER [facility] Albumin 4.3 3.5 - 5.2 g/dL 06/23/2024 4:27 PM BOLT MAKER [facility] Bilirubin Total 0.5 <=1.2 mg/dL 06/23/2024 4:27 PM BOLT MAKER [facility] Alkaline Phosphatase 50 40 - 150 U/L 06/23/2024 4:27 PM BOLT MAKER [facility] AST 31 0 - 45 U/L 06/23/2024 4:27 PM BOLT MAKER [facility] ALT 26 0 - 70 U/L 06/23/2024 4:27 PM BOLT MAKER [facility] Bilirubin Direct <0.20 0.00 - 0.30 mg/dL 06/23/2024 4:27 PM BOLT MAKER [facility] Blood BLOOD SPECIMEN / Unknown Venipuncture / Unknown 06/23/2024 9:02 AM BOLT MAKER 06/23/2024 9:02 AM BOLT MAKER Christen Gallardo MD LAB - BLOOD ORDERABLES Final Re sult [facility] LABORATORY [facility] 500 [facility], [address] [place] [address] * Hemoglobin and hematocrit (06/23/2024 9:02 AM BOLT MAKER) Hemoglobin 16.3 13.3 - 17.7 g/dL 06/23/2024 9:04 AM BOLT MAKER [facility] Hematocrit 48.4 40.0 - 53.0 % 06/23/2024 9:04 AM BOLT MAKER [facility] Blood BLOOD SPECIMEN / Unknown Venipuncture / Unknown 06/23/2024 9:02 AM BOLT MAKER 06/23/2024 9:02 AM BOLT MAKER Christen Gallardo MD LAB - BLOOD ORDERABLES Final Re sult [facility] LABORATORY [facility] - [address] (no room number, 1st floor of clinic) [place] [address], [facility] * Comprehensive metabolic panel (11/21/2023 10:11 AM CDT) [facility] Sodium 138 135 - 145 mmol/L 11/22/2023 [...] 10:11 AM CDT 11/21/2023 10:11 AM CDT Tatyana Dwyer MD LAB - BLOOD ORD ERABLES Final Result [facility] LAB[facility] 500 [facility], [address] [phone] * Colonoscopy - HIM Scan (10/09/2023 12:00 AM CDT) 10/09/2023 Provider Outside PROCEDURES Final Result * Hepatitis C Screen Reflex to HCV RNA Quant and Genotype (12/03/2022 8:43 AM CDT) Hepatitis C Antibody Nonreactive Nonreactive 12/03/2022 5:34 PM CDT SPECIALTY CORE/PROT/EN DO Blood BLOOD SPECIMEN / Unknown Venipuncture / Unknown 12/03/2022 8:43 AM CDT 12/03/2022 8:49 AM CDT Narrative [facility] SPECIALTY CORE/PROT/ENDO - 12/03/2022 5:34 PM CDT Assay performance characteristics have not been established for newborns, infants, and children. us Tatyana Dwyer MD LAB - BLOOD ORD ERABLES Final Result [facility] SPECIALTY CORE/PROT/ENDO [facility] Specialty Core/Prot/Endo [address] [facility], Room [address] [place] [address], [facility] [phone] * HIV Antigen Antibody Combo [[id number]] (08/12/2019 7:06 AM BOLT MAKER) HIV Antigen Antibody Combo Nonreactive NR^Nonrea ctive 08/12/2019 2:49 PM BOLT MAKER [facility] Comment:HIV-1 p24 Ag & HIV-1 /HIV-2 Ab Not Detected Blood specimen (specimen) 08/12/2019 7:06 AM BOLT MAKER 08/12/2019 7:08 AM BOLT MAKER us Hill Spears MD LAB - BLOOD ORDERABLES Final Result [facility] [address] [place] [address] from Last 3 Months or Most Recently Relevant to Health Maintenance Insurance [facility] [place] [address] [facility] Care Teams Celebrity Chef Entrepreneur Media Personality Relationship Specialty Start Date End Date Tatyana Dwyer MD [address] [place] [address] PCP - General Internal Medicine 06/01/19 Annalee Toussaint, PA-C [address] [facility] 500 [place] [address] Physician Soda Maker Physician Soda Maker - Medical 07/15/19 Cr Fung MD [address] [place] [address] [address] [place] [address] Urology 07/15/19 Bianca Rubalcava, RODNEY Specialty Cosmetologist Apprentice Urology 07/15/19 Wm Ryan MD [address] [place] [address] Resident Student in [facility] health care education/training program 02/01/21 Tatyana Dwyer MD [address] [place], [place] [phone] Assigned PCP 02/05/21 Christen Gallardo MD [facility] [place], [place] [id number] Assigned Endocrinology Provider 11/18/21 Ana Fink MD [address] [place] [address] Fellow Gastroenterology 10/16/22
[2024-07-16 16:35] VITALS: BP 135/84; PULSE 79; RESP 18; TEMP 36.8; O2SAT 97; BMI 40.6
--- NOTE | 2024-07-16 19:12 | ED.GENADULT ---
HPI - General Adult General Date Seen: 07/16/24 Chief complaint: Skin/Abscess/Foreign Body Stated complaint: infection in thigh Time Seen by Provider: 07/16/24 18:47 History of Present Illness HPI narrative: 38 yo M presenting to the ER today for evaluation of her right thigh swelling and redness with concern for possible abscess. He has a history of with 2 Mahsa lesions so gives himself weekly injections of testosterone into his thighs. He typically alternates left thigh and right thigh every other week. He gave himself his testosterone injection into his right anterolateral mid thigh on Saturday. 3 days after that, on Saturday he began to feel a small lump an area of firm swelling in his mid thigh in the region where he did the injection. It has gotten a little bit bigger overnight since yesterday and now has developed some redness overlying it. He is otherwise well. Not much pain. No fever chills. No body aches. He is not diabetic or immunosuppressed. He went to the urgent care today. The urgent care provider was concerned about possible abscess so attempted empiric aspiration, but did not obtain any fluid. He was sent here to the ER for us to do ultrasound to look for and a fluid pocket that may require drainage. Related Data Home Medications ?Medication ?Instructions ?Recorded ?Confirmed hydrochlorothiazide 25 mg tablet 25 mg PO QDAY 11/08/22 07/16/24 lisinopril 20 mg tablet 10 mg PO QDAY 11/08/22 07/16/24 nebivolol 2.5 mg tablet (Bystolic) 2.5 mg PO QDAY 11/23/22 07/16/24 omeprazole 20 mg capsule,delayed 20 mg PO DAILY 07/16/24 07/16/24 release semaglutide (weight loss) 0.25 0.25 mg subcut 07/16/24 mg/0.5 mL subcutaneous pen injector (Wegovy) testosterone cypionate 200 mg/mL 150 mg IM Q2W 07/16/24 07/16/24 intramuscular oil wegouy 2.4 mg 07/16/24 Allergies Allergy/AdvReac Type Severity Reaction Status Date / Time No Known Drug Allergies Allergy Verified 07/16/24 16:44 PFSH PFSH Social History Smoking Status: Never smoker Exam Narrative: Exam Narrative: Constitutional: Appears well-developed and well-nourished. Alert. Conversant. Non toxic. HENT: Head: Atraumatic. Nose: Nose normal. Mouth/Throat: Oral mucosa is clear and moist. no trismus. Eyes: Conjunctivae normal. EOM normal. Pupils equal, round, and reactive to light. No scleral icterus. Neck: Normal range of motion. Neck supple. No tracheal deviation present. Cardiovascular: Normal rate, regular rhythm. No gallop. No friction rub. No murmur heard. Pulmonary/Chest: Effort normal. No stridor. No respiratory distress. No wheezes. No rales. No rhonchi . Musculoskeletal: RUE: Normal range of motion. No tenderness. No deformity LUE: Normal range of motion. No tenderness. No deformity RLE: There is a roughly circular area that is about 8 cm in diameter on the patient's mid anterolateral thigh where the there is some soft tissue swelling and firmness and erythema of the skin. At the proximal/medial portion of this region there is a small area of bruising which apparently is the site where he gave his injection on Saturday. No other erythematous areas. No other lesions. No red streaks extending proximally or distally. No palpable fluctuance. Normal range of motion in his hip and knee.. No edema. No tenderness. No deformity LLE: Normal range of motion. No edema. No tenderness. No deformity Lymph: No ascending lymphangitis Neurological: Alert and oriented to person, place, and time. Normal strength. CN II-VII intact. No sensory deficit. GCS eye subscore is 4. GCS verbal subscore is 5. GCS motor subscore is 6. Normal coordination Skin: Skin is warm and dry. No rash noted. No pallor. Normal capillary refill. Psychiatric: Normal mood. Normal affect. Const: Vital Signs, click to edit/add: Vital Signs - 24 hr 07/16/24 16:35 Temperature 98.3 F Pulse Rate [Pulse Oximeter] 79 Respiratory Rate 18 Blood Pressure [Ri ght Upper Arm] 135/84 Pulse Oximetry 97 Oxygen Delivery Me thod Room Air Course Vital Signs Vital signs: Initial Vital Signs Temperature 98.3 F 07/16/24 16:35 Temperature Source Temporal Artery Scan 07/16/24 16:35 Pulse Rate 79 07/16/24 16:35 Respiratory Rate 18 07/16/24 16:35 Blood Pressure 135/84 07/16/24 16:35 Blood Pressure Mean 101 07/16/24 16:35 Blood Pressure Position Sitting 07/16/24 16:35 Pulse Oximetry 97 07/16/24 16:35 Oxygen Delivery Method Room Air 07/16/24 16:35 Vital Signs Temperature 98.3 F 07/16/24 16:35 Pulse Rate 79 07/16/24 16:35 Respiratory Rate 18 07/16/24 16:35 Blood Pressure 135/84 07/16/24 16:35 Pulse Oximetry 97 07/16/24 16:35 Oxygen Delivery Method Room Air 07/16/24 16:35 Temperature 98.3 F 07/16/24 16:35 Pulse Rate 79 07/16/24 16:35 Respiratory Rate 18 07/16/24 16:35 Blood Pressure 135/84 07/16/24 16:35 Pulse Oximetry 97 07/16/24 16:35 Oxygen Delivery Method Room Air 07/16/24 16:35 Medical Decision Making MDM Narrative Medical decision making narrative: This patient presents with redness and swelling affecting him the midportion of his right anterolateral thigh. He does do local injection as testosterone into his thighs and injected his right thigh 5 days ago on Saturday. He developed swelling and redness in that area yesterday. Pt has signs of a cellulitis/possible early abscess. No fluid cavity noted on ultrasound, to suggest either abscess or hematoma. No concerning signs/sx's to suggest needs IV abx and admission. No high fever, systemic illness. Patient is immunocompetent. Plan outpt treatment with oral antibiotics. Needs close f/u of primary; if cannot arrange in 1-2 days then needs to return to ER. Warning signs for wound given on discharge instructions and verbally; see d/c instructions. Pt agrees w/ abx and waiting to see resolution vs abscess formation. Will start him on Bactrim and cephalexin-prescriptions through [facility]. Discharge Plan Discharge Clinical Impression: Cellulitis Patient Disposition: Home, Self-Care Condition: Stable Instructions: Cellulitis (ED) Additional Instructions: As we discussed there is no sign of any fluid pocket on your ultrasound today. We suspect this is probably a skin infection called cellulitis. Please start on the antibiotics tonight and take them as directed. Monitor the area carefully. It usually takes 2 or 3 days for the redness to start to shrink and recede. However if you have worsening redness, increasing swelling, worsening pain, new fevers, or are getting worse, please return to the ER right away to be rechecked. If you are not substantially improved within 3-4 days, please see your doctor or come back to the ER for recheck. Prescriptions: No Action lisinopril 20 mg tablet 10 mg PO QDAY hydrochlorothiazide 25 mg tablet 25 mg PO QDAY nebivolol [Bystolic] 2.5 mg tablet 2.5 mg PO QDAY omeprazole 20 mg capsule,delayed release(DR/EC) 20 mg PO DAILY wegouy 2.4 mg Patient Comments: 2.4 mg/1.75 ml once weekly testosterone cypionate 200 mg/mL oil 150 mg IM Q2W Wegovy 0.25 mg/0.5 mL pen injector 0.25 mg subcut Follow Up/Referrals: Provider,Not a Local [Primary Care Provider] - Stand Alone Forms: [facility] Info Instructions Procedures Ultrasound Skin/Soft Tissue exam #1: Anatomical areas examined: Right anterolateral mid thigh Indications: soft tissue pain, soft tissue swelling and soft tissue redness Exam type: limited soft tissue ultrasound Findings: normal exam Impression: normal limited soft tissue ultrasound
--- OUTSIDE RECORDS SUMMARY | 2024-07-16 19:58 | XMS_ITS | Encounter Summary ---
Author Organization [place] Address [address] [place] [address] Care Team Providers Care Tennis Instructor Name Role Phone Tatyana Dwyer MD Primary Care P rovider Annalee Toussaint-C Unavailable [phone] Cr Fung MD Unavailable Bianca Rubalcava RN Unavailable [phone] Wm Ryan MD Unavailable Tatyana Dwyer MD Unavailable Christen Gallardo MD Unavailable [phone] Ana Fink MD Unavailable Encounter Details Date Type Department Care Team (Late st Contact Info) Description 04/02/2023 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 Gender Identity Male 12/19/2020 9:52 PM CDT [...] st Contact Info) Description 08/18/2024 2:00 PM VEHICLE OPERATOR TECHNICIAN Virtual Visit [address] [place] [phone] [place] [address] 11/20/2024 9:30 AM CDT Office Visit [place] [address] [place] [phone] Tatyana Dwyer MD [address] [place], [place] [phone] documented as of this encounter Visit Diagnoses Not on filedocumented in this encounter Care Teams Tennis Instructor Relationship Specialty Start Date End Date Tatyana Dwyer MD [address] [place], [place] [id number] PCP - General Internal Medicine 06/01/19 Annalee Toussaint PA-C [address] [address] Physician Hobber Physician Hobber - Medical 07/15/19 Cr Fung MD [address] [place] [address] [address] [place] [address] Urology 07/15/19 Bianca Rubalcava, RN Specialty Practical Nursing Faculty Urology 07/15/19 Wm Ryan MD [address] [place] [id number] Resident Student in organized health care education/training program 02/01/21 Tatyana Dwyer MD [address] [place] [address] Assigned PCP 02/05/21 Christen Gallardo MD [facility] [place] [address] Assigned Endocrinology Provider 11/18/21 Ana Fink MD [address] [place] [address] Fellow Gastroenterology 10/16/22 documented as of this encounter
--- OUTSIDE RECORDS SUMMARY | 2024-07-16 19:58 | XMS_ITS | Encounter Summary ---
Author Organization [place] Address [facility] [place] [address] Care Team Providers Care Video Tape Duplicator Name Role Phone Tatyana Dwyer MD Primary Care P rovider Annalee Toussaint PA-C Unavailable Cr Fung MD Unavailable [phone] Bianca Rubalcava RN Unavailable [phone] Wm Ryan MD Unavailable [phone] Tatyana Dwyer MD Unavailable Jaime Wood MD Unavailable Christen Gallardo MD Unavailable [phone] Ana Fink MD Unavailable Reason for Visit * Reason Onset Date Comments Call Back 08/17/2021 Encounter Details Date Type Department Care Team (Late st Contact Info) Description 08/17/[address] [place] [address] Dory Thompson MD [address] [place] [address] Call Back Social History Tobacco Use [...] PM CDT Legal Sex Male 3:08 AM CARDIOLOGY TECHNOLOGIST Gender Identity Male 12/19/2020 9:52 PM CDT Sexual Orientation Straight 12/19/2020 9: 52 PM CDT documented as of this encounter Miscellaneous Notes * Telephone Encounter - Kerri Flores - 08/21/2021 1:58 PM CST LVM for patient to reschedule missed appointment with Dr Ryan. IOLOGY TECHNOLOGIST * Telephone Encounter - Kerri Flores - 08/17/2021 3:23 PM CST Please call to reschedule. IOLOGY TECHNOLOGIST * Telephone Encounter - Becca Guerin - 08/17/2021 7:15 AM CST [facility] Phone Message May a detailed message be left on voicemail: yes Reason for Call: Other: Patient Has a 9am in person appointment with Wm Ryan MD patient is sick and wants to know if provider can accommodate a video visit today? Action Taken: Other: ENDO Travel Screening: Not Applicable IOLOGY TECHNOLOGIST documented in this encounter Plan of Treatment Upcoming Encounters Date Type Department Care Team (Late st Contact Info) Description 08/18/2024 2:00 PM CARDIOLOGY TECHNOLOGIST Virtual Visit [facility] Specialty [address] [phone] Christen Gallardo MD [facility] [place] [address] 11/20/2024 9:30 AM CDT Office Visit [facility] [address] [place] [phone] Tatyana Dwyer MD [address] [place], [place] [address] documented as of this encounter Visit Diagnoses Not on filedocumented in this encounter Additional Health Concerns Infection Onset Date Last Indicated Resolved Time Rule Out COVID-19 10/25/2021 10/25/2021 10/26/2021 12:43 PM CDT COVID-19 10/25/2021 10/25/2021 11/15/2021 11:3 9 PM CDT documented as of this encounter Care Teams Video Tape Duplicator Relationship Specialty Start Date End Date Tatyana Dwyer MD [address] [place], [place] [phone] PCP - General Internal Medicine 06/01/19 Annalee Toussaint, PAMarianaC [address] [facility] [address] [place], [place] [address] Physician Health Care Technician Physician Health Care Technician - Medical 07/15/19 Cr Fung MD [address] [id number] Urology 07/15/19 Bianca Rubalcava, RODNEY Specialty Pin Chaser Urology 07/15/19 Wm Ryan MD [address] [place] [address] Resident Student in organized health care education/training program 02/01/21 Tatyana Dwyer MD [address] [place] [address] Assigned PCP 02/05/21 Jaime Wood MD [address] [address] Assigned Sleep Provider 07/09/21 01/04/23 [place] [address] Assigned Endocrinology Provider 11/18/21 Ana Fink MD [address] [place] [address] Fellow Gastroenterology 10/16/22 documented as of this encounter
--- OUTSIDE RECORDS SUMMARY | 2024-07-16 19:58 | XMS_ITS | Encounter Summary ---
Author Organization [place] Address [address] [place] [address] Care Team Providers Care Logistician Name Role Phone Tatyana Dwyer MD Primary Care P rolorettader Tatyana Dwyer MD Unavailable Annalee Toussaint-C Unavailable [phone] Cr Fung MD Unavailable Bianca Rubalcava RN Unavailable [phone] Keegan Montemayor MD Unavailable Un available Joselin Andrade PA-C Unavailable Steven Tatum MD Unavailable Jim Mark MD Unavailable [phone] Jaime Wood MD Unavailable [phone] Annalee Toussaint-C Unavailable [phone] Honey Jackson APRN, CNP Unavailable + [phone] Wm Ryan MD Unavailable Tatyana Dwyer MD Unavailable Amalia Agosto GC Unavailable [phone] Jaime Wood MD Unavailable [phone] Christen Gallardo MD Unavailable [phone] Ana Fink MD Unavailable Reason for Visit * Reason Onset Date Comments Patient Request 07/21/2019 Encounter Details Date Type Department Care Team ([facility] Contact Info) Description 07/21/2019 [facility] [place] [address] [place] [address] Annalee Toussaint, PAMarianaC [address] [place] [place] [...] PM CDT Legal Sex Male 3:08 AM SAFETY ASSOCIATE Gender Identity Male 12/19/2020 9:52 PM CDT Sexual Orientation Straight 12/19/2020 9: 52 PM CDT documented as of this encounter Miscellaneous Notes * Telephone Encounter - Luda Curtis - 07/21/2019 12:36 PM CST [facility] Call Center Phone Message May a detailed message be left on voicemail: yes Reason for Call: Other: Patient would like to be seen for testicular pain, patient has been seeing Breana and he sasid he no longer want to see her and is not wanting to see someone else. Please callto discuss. Action Taken: Other: [facility] Urology Travel Screening: Not Applicable TY ASSOCIATE documented in this encounter Plan of Treatment Upcoming Encounters Date Type Department Care Team (Late st Contact Info) Description 08/18/2024 2:00 PM SAFETY ASSOCIATE Virtual Visit [facility] [address] [facility] [address] [place] [phone] [place] [address] 11/20/2024 9:30 AM CDT Office Visit [facility] [address] [place] [phone] Tatyana Dwyer MD [address] [place], [place] [address] documented as of this encounter Visit Diagnoses Not on filedocumented in this encounter Additional Health Concerns Infection Onset Date Last Indicated Resolved Time Rule Out COVID-19 10/25/2021 10/25/2021 10/26/2021 12:43 PM CDT COVID-19 10/25/2021 10/25/2021 11/15/2021 11:3 9 PM CDT documented as of this encounter Care Teams Logistician Relationship Specialty Start Date End Date Tatyana Dwyer MD [address] [place] [address] PCP - General Internal Medicine 06/01/19 Tatyana Dwyer MD [address] [place] [address] Assigned PCP 05/31/19 10/15/20 Annalee Toussaint PA-C [address] [facility] 500 [place] [address] Physician Roller Printing Supervisor Physician Roller Printing Supervisor - Medical 07/15/19 Cr Fung MD [address] [place] [address] [address] [place] [address] Urology 07/15/19 Bianca Rubalcava, RN Specialty Sales Representative Gas Service Urology 07/15/19 Keegan Montemayor MD Assigned Heart and Vascular Provider 04/08/20 12/27/20 Joselin Andrade PA-C [address] [place] [address] Assigned Pediatric Specialist Provider 04/08/20 07/17/20 [place] [address] [place] [address] Assigned Surgical Provider 04/08/20 07/22/21 Jim Mark MD [address] [place] [address] Assigned Musculoskeletal Provider 04/08/20 02/11/21 Jaime Wood MD [address] [place] [address] Assigned Sleep Provider 04/08/2004/08 Annalee Toussaint PA-C [address] [place] [address] Assigned OBGYN Provider 08/31/20 1 Honey Jackson APRN K 9 POLICE OFFICER [address] [place] [address] Assigned PCP 10/16/20 02/04/21 Wm Ryan MD [address] [place] [address] Resident Student in [facility] health care education/training program 02/01/21 Tatyana Dwyer MD [address] [place] [address] Assigned PCP 02/05/21 Amalia Agosto GC [address] [place], [place] [address]324 Assigned OBGYN Provider 05/07/21 07/15/21 Jaime Wood MD [address] 319845 Assigned Sleep Provider 07/09/21 [place] [address] Assigned Endocrinology Provider 11/18/21 Ana Fink MD [address] [place] [address] Fellow Gastroenterology 10/16/22 documented as of this encounter
--- OUTSIDE RECORDS SUMMARY | 2024-07-16 19:58 | XMS_ITS | Encounter Summary ---
Author Organization [place] Address [facility] [place] [place] [address] Care Team Providers Care Diesel Pile Driver Operator Name Role Phone Tatyana Dwyer MD Primary Care P rovider Annalee Toussaint-C Unavailable Cr Fung MD Unavailable Bianca Rubalcava RN Unavailable [phone] Steven Tatum MD Unavailable Wm Ryan MD Unavailable Tatyana Dwyer MD Unavailable Amalia Agosto GC Unavailable [phone] Jaime Wood MD Unavailable [phone] Christen Gallardo MD Unavailable [phone] Ana Fink MD Unavailable Encounter Details Date Type Department Care Team (Late st Contact Info) Description 07/03/2021 [facility] [place] [address] [facility] [address] [place] [address] Jaime Wood MD [address] [facility] 103 [place] [address] Social History Tobacco Use Types [...] PM CDT Legal Sex Male 3:08 AM PAVING BED MAKER Gender Identity Male 12/19/2020 9:52 PM CDT Sexual Orientation Straight 12/19/2020 9: 52 PM CDT documented as of this encounter Plan of Treatment Upcoming Encounters Date Type Department Care Team (Late st Contact Info) Description 08/18/2024 2:00 PM PAVING BED MAKER Virtual Visit [facility] Specialty [address] [place] [phone] Christen Gallardo [place] [address] 11/20/2024 9:30 AM CDT Office Visit [address] [place] [phone] Tatyana Dwyer MD [facility] [place] [address] documented as of this encounter Visit Diagnoses Not on filedocumented in this encounter Additional Health Concerns Infection Onset Date Last Indicated Resolved Time Rule Out COVID-19 10/25/2021 10/25/2021 10/26/2021 12:43 PM CDT COVID-19 10/25/2021 10/25/2021 11/15/2021 11:3 9 PM CDT documented as of this encounter Care Teams Diesel Pile Driver Operator Relationship Specialty Start Date End Date CriTatyana Shannon MD [address] [place] [address] PCP - General Internal Medicine 06/01/19 Annalee Toussaint PA-C [address] [facility] 500 [place], [place] [address] Physician Geospatial Specialist Physician Geospatial Specialist - Medical 07/15/19 Cr Fung MD [address] 6978[address] Urology 07/15/19 Bianca Rubalcava, RODNEY Specialty Hris Manager Urology 07/15/19 [place] [address] [place] [address]209 Assigned Surgical Provider 04/08/20 07/22/21 Wm Ryan MD [address] [place] [address] Resident Student in organized health care education/training program 02/01/21 Tatyana Dwyer MD [address] [place] [address] Assigned PCP 02/05/21 Amalia Agosto GC [address] [place], [place] 809684 Assigned OBGYN Provider 05/07/21 07/15/21 Jaime Wood MD [address] [facility] [address] [place], [place] [address] Assigned Sleep Provider 07/09/21 01/04/23 [place] [address] Assigned Endocrinology Provider 11/18/21 Ana Fink MD [address] [place] [address] Fellow Gastroenterology 10/16/22 documented as of this encounter
--- OUTSIDE RECORDS SUMMARY | 2024-07-16 19:58 | XMS_ITS | Encounter Summary ---
Author Organization [place] Address [address] [place] [address] Care Team Providers Care Job Coach Name Role Phone Tatyana Dwyer MD Primary Care P rolorettader Tatyana Dwyer MD Unavailable Annalee Toussaint PA-C Unavailable [phone] Cr Fung MD Unavailable [phone] Bianca Rubalcava RN Unavailable [phone] Keegan Montemayor MD Unavailable Un available Steven Tatum MD Unavailable Jim Mark MD Unavailable Jaime Wood MD Unavailable [phone] Annalee Toussaint PA-C Unavailable [phone] Honey Jackson APRN, CNP Unavailable + [phone] Wm Ryan MD Unavailable [phone] Tatyana Dwyer MD Unavailable Amalia Agosto GC Unavailable [phone] Jaime Wood MD Unavailable [phone] Christen Gallardo MD Unavailable [phone] Ana Fink MD Unavailable Encounter Details Date Type Department Care Team (Late st Contact Info) Description 08/23/2020 [facility] Medical Advice [facility] [address] [place] [address] Honey Jackson APRN MEDIATION COMMISSIONER [address] [place] [address] Social History Tobacco Use Types Packs/Day Years [...] PM CDT Legal Sex Male 3:08 AM SET UP MACHINIST Gender Identity Male 12/19/2020 9:52 PM CDT Sexual Orientation Straight 12/19/2020 9: 52 PM CDT COVID-19 Exposure Response Date Recorded In the last month, have you been in contact with someone who was confirmed or suspected to have Coronavirus / COVID-19? No / Unsure 08/23/2020 12:45 PM SET UP MACHINIST documented as of this encounter Plan of Treatment Upcoming Encounters Date Type Department Care Team (Late st Contact Info) Description 08/18/2024 2:00 PM SET UP MACHINIST Virtual Visit [facility] Specialty [address] [place] [address] Christen Gallardo MD [facility] [place] [address] 11/20/2024 9:30 AM CDT Office Visit [facility] [address] [place] [address] Tatyana Dwyer MD [address] [place], [place] [address] documented as of this encounter Visit Diagnoses Not on filedocumented in this encounter Additional Health Concerns Infection Onset Date Last Indicated Resolved Time Rule Out COVID-19 10/25/2021 10/25/2021 10/26/2021 12:43 PM CDT COVID-19 10/25/2021 10/25/2021 11/15/2021 11:3 9 PM CDT documented as of this encounter Care Teams Job Coach Relationship Specialty Start Date End Date Tatyana Dwyer MD [address] [place] [address] PCP - General Internal Medicine 06/01/19 Tatyana Dwyer MD [address] [place] [address] Assigned PCP 05/31/19 10/15/20 Annalee Toussaint, DUSTYC [address] [address] Physician Ball Assembler Physician Ball Assembler - Medical 07/15/19 Cr Fung MD [address] [place] [address] 394 [place] [address] Urology 07/15/19 Bianca Rubalcava, RODNEY Specialty Rerecording Mixer Urology 07/15/19 Keegan Montemayor MD Assigned Heart and Vascular Provider 04/08/20 12/27/20 [place] [address] [place] [address] Assigned Surgical Provider 04/08/20 07/22/21 Jim Mark MD [address] [place] [address] Assigned Musculoskeletal Provider 04/08/20 02/11/21 Jaime Wood MD [address] [place] [address] Assigned Sleep Provider 04/08/2004/08 Annalee Toussaint PA-C [address] [place], [place] [address] Assigned OBGYN Provider 08/31/20 1 Honey Jackson APRN CNP [address] [place], [place] [address] Assigned PCP 10/16/20 02/04/21 Wm Ryan MD [address] [place], [place] [address] Resident Student in organized health care education/training program 02/01/21 Tatyana Dwyer MD [address] [place], [place] 0[address]367 Assigned PCP 02/05/21 Amalia Agosto GC 2450 [place] [address] Assigned OBGYN Provider 05/07/21 07/15/21 Jaime Wood MD [address] [facility] [facility] [address] [place] [address] Assigned Sleep Provider 07/09/21 [place] [address] Assigned Endocrinology Provider 11/18/21 Ana Fink MD [address] [place] [address] Fellow Gastroenterology 10/16/22 documented as of this encounter
--- OUTSIDE RECORDS SUMMARY | 2024-07-16 19:58 | XMS_ITS | Encounter Summary ---
Author Organization [place] Address [facility] [place] [address] Care Team Providers Care Instrumentation Instructor Name Role Phone Tatyana Dwyer MD Primary Care P rovider Annalee Toussaint PA-C Unavailable rC Fung MD Unavailable [phone] Bianca Rubalcava RN Unavailable [phone] Wm Ryan MD Unavailable [phone] Tatyana Dwyer MD Unavailable Christen Gallardo MD Unavailable [phone] Ana Fink MD Unavailable Encounter Details Date Type Department Care Team (Late st Contact Info) Description 11/29/2023 [facility] Advice [facility] Specialty [address] [address] Christen Gallardo MD [place] [address] Social History Tobacco Use Types [...] re latives? Twice a week 11/16/2023 Attends Judaism Services Not on file 11/15 Active Member [...] Answer Date Recorded PHQ-2 Score 0 11/21/2023 [facility] - Occupational [...] in an abandoned building, in an overnight intermediate, or couch-surfing.) Yes 11/16/2023 Are you worried [...] CDT Legal Sex Male 3:08 AM HAND SCREEN PRINTER Gender Identity Male 12/19/2020 9:52 PM CDT Sexual Orientation Straight 12/19/2020 9: 52 PM CDT documented as of this encounter Plan of Treatment Upcoming Encounters Date Type Department Care Team (Late st Contact Info) Description 08/18/2024 2:00 PM HAND SCREEN PRINTER Virtual Visit [address] [phone] [place] [address] 11/20/2024 9:30 AM CDT Office Visit [address] [place] [address] Tatyana Dwyer MD [facility] [address] [place], [place] [address] documented as of this encounter Visit Diagnoses Not on filedocumented in this encounter Care Teams Instrumentation Instructor Relationship Specialty Start Date End Date Tatyana Dwyer MD [facility] [place] [address] PCP - General Internal Medicine 06/01/19 Annalee Toussaint PA-C [address] [address] Physician Donor Services Coordinator Physician Donor Services Coordinator - Medical 07/15/19 Cr Fung MD [address] [place] [address] Urology 07/15/19 Bianca Rubalcava, RODNEY Specialty Scalloper Urology 07/15/19 Wm Ryan MD [address] [place] [address]14[address] Resident Student in organized health care education/training program 02/01/21 Tatyana Dwyer MD [address] [place], [place] 227537 Assigned PCP 02/05/21 Christen Gallardo [place] [address] Assigned Endocrinology Provider 11/18/21 Ana Fink MD [address] [place] [address] Fellow Gastroenterology 10/16/22 documented as of this encounter
--- OUTSIDE RECORDS SUMMARY | 2024-07-16 19:58 | XMS_ITS | Encounter Summary ---
Author Organization [place] Address [facility] [place] [address] Care Team Providers Care Sewing Machine Attachment Tester Name Role Phone Tatyana Dwyer MD Primary Care P rovider Annalee Toussaint-C Unavailable Cr Fung MD Unavailable Bianca Rubalcava RN Unavailable [phone] Wm Ryan MD Unavailable Tatyana Dwyer MD Unavailable Christen Gallardo MD Unavailable [phone] Ana Fink MD Unavailable Encounter Details Date Type Department Care Team (Late st Contact Info) Description 05/06/2023 [facility] Medical Advice [facility] Specialty [address] [address] Christ[place] [address] Social History Tobacco Use Types [...] PM CDT Legal Sex Male 3:08 AM TELEVISION ANALYZER Gender Identity Male 12/19/2020 9:52 PM CDT Sexual Orientation Straight 12/19/2020 9: 52 PM CDT documented as of this encounter Plan of Treatment Upcoming Encounters Date Type Department Care Team (Late st Contact Info) Description 08/18/2024 2:00 PM TELEVISION ANALYZER Virtual Visit [address] [place] [address] [place] [address] 11/20/2024 9:30 AM CDT Office Visit [facility] [address] [place] [phone] Tatyana Dwyer MD [address] [place], [place] [address] documented as of this encounter Visit Diagnoses Not on filedocumented in this encounter Care Teams Sewing Machine Attachment Tester Relationship Specialty Start Date End Date Tatyana Dwyer MD [address] [place], [place] [address] PCP - General Internal Medicine 06/01/19 Annalee Toussaint PA-C [address] [address] Physician Insurance Law Specialist Physician Insurance Law Specialist - Medical 07/15/19 Cr Fung MD [address] [place] [address] 394 [place] [address] Urology 07/15/19 Bianca Rubalcava, RN Specialty Lumber Carrier Operator Urology 07/15/19 Wm Ryan MD [address] [place] [address]269[address] Resident Student in organized health care education/training program 02/01/21 Tatyana Dwyer MD [address] [place], [place] [address]277 Assigned PCP 02/05/21 Christ[place] [address] Assigned Endocrinology Provider 11/18/21 Ana Fink MD [address] [place] [address] Fellow Gastroenterology 10/16/22 documented as of this encounter
--- OUTSIDE RECORDS SUMMARY | 2024-07-16 19:58 | XMS_ITS | Encounter Summary ---
Author Organization [place] Address [facility] [place] [address] Care Team Providers Care Shuttle Bus Driver Name Role Phone Tatyana Dwyer MD Primary Care P rovider Annalee Toussaint PA-C Unavailable Cr Fung MD Unavailable Bianca Rubalcava RN Unavailable [phone] Wm Ryan MD Unavailable Tatyana Dwyer MD Unavailable Jaime Wood MD Unavailable Christen Gallardo MD Unavailable [phone] Ana Fink MD Unavailable Reason for Visit * Reason Onset Date Comments MyChart Communication 03/08/2022 Encounter Details Date Type Department Care Team (Late st Contact Info) Description 03/08/2022 MyC Medical Advice [address] [place] [address] Tatyana Dwyer MD [address] [place] [address] MyChart Communication Social History Tobacco [...] PM CDT Legal Sex Male 3:08 AM REDRAWER Gender Identity Male 12/19/2020 9:52 PM CDT Sexual Orientation Straight 12/19/2020 9: 52 PM CDT documented as of this encounter Miscellaneous Notes * Telephone Encounter - Adriana Minor RN - 03/09/2022 2:00 PM CDT [employer] message sent to patient requesting nurse only [...] st Contact Info) Description 08/18/2024 2:00 PM REDRAWER Virtual Visit [address] [address] Christen Gallardo MD [place] [address] 11/20/2024 9:30 AM CDT Office Visit [facility] [address] [place] [phone] Tatyana Dwyer MD [address] [place], [place] [address] documented as of this encounter Visit Diagnoses Diagnosis HTN, goal below 140/90 Unspecified essential hypertension Tachycardia Tachycardia, unspecified documented in this encounter Care Teams Shuttle Bus Driver Relationship Specialty Start Date End Date Tatyana wDyer MD [address] [place], [place] [address] PCP - General Internal Medicine 06/01/19 Annalee Toussaint PA-C [address] [address] Physician Employee Communications Intern Physician Employee Communications Intern - Medical 07/15/19 Cr Fung MD [address] [place] [address] Urology 07/15/19 Bianca Rubalcava, RN Specialty Entry Level Software Engineer Urology 07/15/19 Wm Ryan MD [address] [place] [address] Resident Student in organized health care education/training program 02/01/21 Tatyana Dwyer MD [address] [place] [address] Assigned PCP 02/05/21 Jaime Wood MD [address] [address] Assigned Sleep Provider 07/09/21 01/04/23 Christen Gallardo [place] [address] Assigned Endocrinology Provider 11/18/21 Ana Fink MD [address] [place] [address] Fellow Gastroenterology 10/16/22 documented as of this encounter
--- OUTSIDE RECORDS SUMMARY | 2024-07-16 19:58 | XMS_ITS | Encounter Summary ---
Author Organization [employer] Address [address] [place] [address] Care Team Providers Care Healthcare Financial Analyst Name Role Phone Michelet Velasco MD Primary Care Provid er Reason for Visit * Reason Comments Infection (Suspected) Encounter Details Date Type Department Care Team (Late st Contact Info) Description 07/16/2024 9:40 AM FOREIGN LAW CONSULTANT Office Visit [facility] [address] [place] [address] Rafa Sosa, AUTO REBUILDER, FUEL VERIFICATION TECHNICIAN [address] [place] [address] Leg swelling; Pain of right [...] Comments Blood Pressure 137/72 07/16/2024 9:33 AM FOREIGN LAW CONSULTANT Pulse 90 07/16/2024 9:33 AM FOREIGN LAW CONSULTANT Temperature 36.6 C (97.8 F) 07/16/2024 9:33 AM FOREIGN LAW CONSULTANT Respiratory Rate 18 07/16/2024 9:33 AM FOREIGN LAW CONSULTANT Oxygen Saturation 99% 07/16/2024 9:33 AM FOREIGN LAW CONSULTANT Inhaled Oxygen Concentration - - Weight - - Height - - Body Mass Index - - documented in this encounter Patient Instructions * Patient Instructions* Rafa Sosa APRN, CNP - 07/16/2024 9:40 AM FOREIGN LAW CONSULTANT Take Ibuprofen or Naproxen for the next [...] daily for the next couple of days. IGN LAW CONSULTANT * Attachments The following attachments cannot be sent through Care Everywhere. * Cellulitis (Czech) documented in this encounter Progress Notes * [...] the ER if worsening symptoms or concerns. IGN LAW CONSULTANT documented in this encounter Nursing Notes * Bolivar Vizcarra LPN - 07/16/2024 9:40 AM CST Patient is here today due to R thigh injection site bump, redness, swelling, and warmth. Pt states that this started 1 day ago and has significantly worsened. Pt states that it woke him during the night. Pt denies OTC products IGN LAW CONSULTANT documented in this encounter Plan of Treatment Not on file documented as of this encounter Visit Diagnoses Diagnosis Leg swelling Swelling of limb Pain of right lower extremity documented in this encounter Care Teams Healthcare Financial Analyst Relationship Specialty Start Date End Date Michelet Velasco MD [address] [place] [address] PCP - General 10/20/13 documented as of this encounter
--- OUTSIDE RECORDS SUMMARY | 2024-07-16 19:58 | XMS_ITS | Encounter Summary ---
Author Organization [place] Address [address] [place] [address] Care Team Providers Care Tool Room Supervisor Name Role Phone Tatyana Dwyer MD Primary Care P rolorettader Tatyana Dwyer MD Unavailable Annalee Toussaint PA-C Unavailable [phone] Cr Fung MD Unavailable [phone] Bianca Rubalcava RN Unavailable [phone] Keegan Montemayor MD Unavailable Un available Steven Tatum MD Unavailable Jim Mark MD Unavailable [phone] Jaime Wood MD Unavailable [phone] Annalee Toussaint PA-C Unavailable [phone] Honey Jackson APRN, CNP Unavailable + [phone] Wm Ryan MD Unavailable [phone] Tatyana Dwyer MD Unavailable Amalia Agosto GC Unavailable [phone] Jaime Wood MD Unavailable [phone] Christen Gallardo MD Unavailable [phone] Ana Fink MD Unavailable Encounter Details Date Type Department Care Team (Late st Contact Info) Description 07/28/2020 MyC Medical Advice [facility] [address] [facility] [address] 5th [place] [address] Hill Spears MD 420 [facility] 741 [place] [address] Social History Tobacco Use Types Packs/Day Years [...] PM CDT Legal Sex Male 3:08 AM BULK FOLDER Gender Identity Male 12/19/2020 9:52 PM CDT Sexual Orientation Straight 12/19/2020 9: 52 PM CDT documented as of this encounter Plan of Treatment Upcoming Encounters Date Type Department Care Team (Late st Contact Info) Description 08/18/2024 2:00 PM BULK FOLDER Virtual Visit [address] [place] [phone] Christen Gallardo [place] [address] 11/20/2024 9:30 AM CDT Office Visit [place] [address] [place] [phone] Tatyana Dwyer MD [address] [place], [place] 722027 documented as of this encounter Visit Diagnoses Not on filedocumented in this encounter Additional Health Concerns Infection Onset Date Last Indicated Resolved Time Rule Out COVID-19 10/25/2021 10/25/2021 10/26/2021 12:43 PM CDT COVID-19 10/25/2021 10/25/2021 11/15/2021 11:3 9 PM CDT documented as of this encounter Care Teams Tool Room Supervisor Relationship Specialty Start Date End Date Tatyana Dwyer MD [address] [place] [address] PCP - General Internal Medicine 06/01/19 Tatyana Dwyer MD [address] [place] [address] Assigned PCP 05/31/19 10/15/20 Annalee Toussaint, PAMarianaC [address] [facility] [facility] [address] [id number] Physician Agency Sales Management Assistant Physician Agency Sales Management Assistant - Medical 07/15/19 Cr Fung MD 420 [facility] 394 [place], [place] 999405 Urology 07/15/19 Bianca Rubalcava, RN Specialty Pathology Laboratory Technologist Urology 07/15/19 Keegan Montemayor MD Assigned Heart and Vascular Provider 04/08/20 12/27/20 [place] [address] [place] [address] Assigned Surgical Provider 04/08/20 07/22/21 Jim Mark MD 909 [place] [address] Assigned Musculoskeletal Provider 04/08/20 02/11/21 Jaime Wood MD [address] [place] [address] [place] [address] Assigned Sleep Provider 04/08/2004/08 Annalee Toussaint PA-C [address] [place] [address] [place] 523395 Assigned OBGYN Provider 08/31/20 1 Honey Jackson APRN CNP [address] [place], [place] 048947 Assigned PCP 10/16/20 02/04/21 Wm Ryan MD [address] [place] [address] 998025 Resident Student in organized health care education/training program 02/01/21 Tatyana Dwyer MD [address] [place] [address] Assigned PCP 02/05/21 Amalia Agosto GC 2450 [place], [place] 351224 Assigned OBGYN Provider 05/07/21 07/15/21 Jaime Wood MD [address] [place] [address] [place] [address] Assigned Sleep Provider 07/09/21 [place] [address] Assigned Endocrinology Provider 11/18/21 Ana Fink MD [address] [place] [address] Fellow Gastroenterology 10/16/22 documented as of this encounter
--- OUTSIDE RECORDS SUMMARY | 2024-07-16 19:58 | XMS_ITS | Clinical Summary ---
Author Organization [facility] Address [address], [place] [address] Care Team Providers Care Grapple Operator Name Role Phone Michelet Velasco MD Primary [...] for each transition of care or referral. [facility] Allergies No known active allergies Medications Medication [...] Department Care Team Description 07/16/2024 9:40 AM MOTOR ROUTE CARRIER Office Visit [place] [facility] [address] [place] [address] Rafa Sosa, BLADDER CHANGER, COMPUTER PROGRAMMER CHIEF Leg swelling; Pain of right lower extremity [...] Comments Blood Pressure 137/72 07/16/2024 9:33 AM MOTOR ROUTE CARRIER Pulse 90 07/16/2024 9:33 AM MOTOR ROUTE CARRIER Temperature 36.6 C (97.8 F) 07/16/2024 9:33 AM MOTOR ROUTE CARRIER Respiratory Rate 18 07/16/2024 9:33 AM MOTOR ROUTE CARRIER Oxygen Saturation 99% 07/16/2024 9:33 AM MOTOR ROUTE CARRIER Inhaled Oxygen Concentration - - Weight 149.7 [...] age to complete this topic Care Teams Grapple Operator Relationship Specialty Start Date End Date Michelet Velasco MD [address] [place] [address] PCP - General 10/20/13
--- OUTSIDE RECORDS SUMMARY | 2024-07-16 19:59 | XMS_ITS | Encounter Summary ---
Author Organization [place] Address [address] [place] [address]. [place] [address] Care Team Providers Care Bull Wheel Worker Name Role Phone Tatyana Dwyer MD Primary Care P rovider Annalee Toussaint-C Unavailable [phone] Cr Fung MD Unavailable [phone] Bianca Rubalcava RN Unavailable [phone] Wm Ryan MD Unavailable Tatyana Dwyer MD Unavailable Christen Gallardo MD Unavailable [phone] Ana Fink MD Unavailable Encounter Details Date Type Department Care Team (Late st Contact Info) Description 09/24/2023 MyC Medical Advice [facility] [address] [address] Nita Esteban, RN Social History [...] PM CDT Legal Sex Male 3:08 AM RETURN TO VENDOR Gender Identity Male 12/19/2020 9:52 PM CDT Sexual Orientation Straight 12/19/2020 9: 52 PM CDT documented as of this encounter Miscellaneous Notes * Telephone Encounter - Vane Joshi - 10/18/2023 12:57 PM CDT Spoke with pt. Pt is busy at the moment but said they can go on [place] to schedule a 6 month follow up visit with Dr. Gallardo sometime in April. documented in this encounter Plan of Treatment Upcoming Encounters Date Type Department Care Team (Late st Contact Info) Description 08/18/2024 2:00 PM RETURN TO VENDOR Virtual Visit [address] [phone] Christen Gallardo MD [place] [address] 11/20/2024 9:30 AM CDT Office Visit [facility] [address] [place] [phone] Tatyana Dwyer MD [address] [place], [place] 948347 documented as of this encounter Visit Diagnoses Not on filedocumented in this encounter Care Teams Bull Wheel Worker Relationship Specialty Start Date End Date Tatyana Dwyer MD [address] [place] [address] PCP - General Internal Medicine 06/01/19 Annalee Toussaint PA-C [address] [address] Physician Rn Patient Care Physician Rn Patient Care - Medical 07/15/19 Cr Fung MD [address] [place] [address] Urology 07/15/19 Bianca Rubalcava, RODNEY Specialty Recreation Manager Urology 07/15/19 Wm Ryan MD [address] [place] [address] 905145 Resident Student in organized health care education/training program 02/01/21 Tatyana Dwyer MD [address] [place], [place] 713867 Assigned PCP 02/05/21 Christen Gallardo MD [facility] [place] [address] Assigned Endocrinology Provider 11/18/21 Ana Fink MD [address] [place] [address] 874135 Fellow Gastroenterology 10/16/22 documented as of this encounter
--- OUTSIDE RECORDS SUMMARY | 2024-07-16 19:59 | XMS_ITS | Encounter Summary ---
Author Organization [place] Address [address] [place] [address] Care Team Providers Care Chemical Processing Laborer Name Role Phone Tatyana Dwyer MD Primary Care P rolorettader Tatyana Dwyer MD Unavailable Annalee Toussaint-C Unavailable Cr Fung MD Unavailable [phone] iBanca Rubalcava RN Unavailable [phone] Keegan Montemayor MD Unavailable Un available Joselin Andrade PA-C Unavailable Steven Tatum MD Unavailable Jim Mark MD Unavailable [phone] Jaime Wood MD Unavailable [phone] Annalee Toussaint-C Unavailable [phone] Honey Jackson APRN, CNP Unavailable + [phone] Wm Ryan MD Unavailable Tatyana Dwyer MD Unavailable Amalia Agosto GC Unavailable [phone] Jaime Wood MD Unavailable [phone] Christen Gallarod MD Unavailable [phone] Ana Fink MD Unavailable Reason for Visit * Reason Onset Date Comments Call Back 10/02/2019 patient call ed about his visit on 10/05/2019, has an child at home with fever and cough, is concern about coming in. Encounter Details Date Type Department Care Team (Late st Contact Info) Description 10/02/[address] [facility] [address] [facility] [address] [place] [address] Jaime Wood MD [address] [facility] [address] [place] [address]47195 Call Back (patient call ed about his [...] PM CDT Legal Sex Male 3:08 AM IMAGING ADMINISTRATOR Gender Identity Male 12/19/2020 9:52 PM CDT [...] st Contact Info) Description 08/18/2024 2:00 PM IMAGING ADMINISTRATOR Virtual Visit [facility] [address] [place] [address] [address] [place] [phone] [place] [address] 11/20/2024 9:30 AM CDT Office Visit [facility] [address] [place] [phone] Tatyana Dwyer MD [address] [place], [place] 26[address]47 documented as of this encounter Visit Diagnoses Not on filedocumented in this encounter Additional Health Concerns Infection Onset Date Last Indicated Resolved Time Rule Out COVID-19 10/25/2021 10/25/2021 10/26/2021 12:43 PM CDT COVID-19 10/25/2021 10/25/2021 11/15/2021 11:3 9 PM CDT documented as of this encounter Care Teams Chemical Processing Laborer Relationship Specialty Start Date End Date Tatyana Dwyer MD [address] [place] [address] PCP - General Internal Medicine 06/01/19 Tatyana Dwyer MD [address] [place] [address] Assigned PCP 05/31/19 10/15/20 Annalee Toussaint PA-C [address] [facility] 500 [place] [address] Physician Store Facility Technician Physician Store Facility Technician - Medical 07/15/19 Cr Fung MD [address] [place] [address] 394 [place] [address] Urology 07/15/19 Bianca Rubalcava, RN Specialty Information Delivery Analyst Urology 07/15/19 Keegan Montemayor MD Assigned Heart and Vascular Provider 04/08/20 12/27/20 Joselin Andrade PA-C [address] [place] [address] Assigned Pediatric Specialist Provider 04/08/20 07/17/20 [place] [address] [place] [address] Assigned Surgical Provider 04/08/20 07/22/21 Jim Mark MD [address] [place] [address] Assigned Musculoskeletal Provider 04/08/20 02/11/21 Jaime Wood MD [address] [place] [address] [place] [address] Assigned Sleep Provider 04/08/2004/08 Annalee Toussaint PA-C [address] [place] [address] [place] [address] Assigned OBGYN Provider 08/31/20 1 Honey Jackson APRN DUST HANDLER [address] [place] [address] Assigned PCP 10/16/20 02/04/21 Wm Ryan MD 420 [place] [address] Resident Student in organized health care education/training program 02/01/21 Tatyana Dwyer MD [address] [place] [address] Assigned PCP 02/05/21 Amalia Agosto GC 2450 [place], [place] 969624 Assigned OBGYN Provider 05/07/21 07/15/21 Jaime Wood MD [address] [address] Assigned Sleep Provider 07/09/21 [place] [address] Assigned Endocrinology Provider 11/18/21 Ana Fink MD 420 [place] [address] Fellow Gastroenterology 10/16/22 documented as of this encounter
--- OUTSIDE RECORDS SUMMARY | 2024-07-16 19:59 | XMS_ITS | Encounter Summary ---
Author Organization [place] Address [facility] [place] [address] Care Team Providers Care High Lighter Name Role Phone Tatyana Dwyer MD Primary Care P rovider Annalee Toussaint-C Unavailable Cr Fung MD Unavailable [phone] Bianca Rubalcava RN Unavailable [phone] Steven Tatum MD Unavailable Wm Ryan MD Unavailable [phone] Tatyana Dwyer MD Unavailable Amalia Agosto GC Unavailable [phone] Jaime Wood MD Unavailable Christen Gallardo MD Unavailable [phone] Ana Fink MD Unavailable Reason for Visit * Reason Onset Date Comments Call Back 04/14/2021 Encounter Details Date Type Department Care Team (Late st Contact Info) Description 04/14/2021 Telephone [facility] [place] [address] [facility] 103 [place] [address] Jaime Wood MD [address] [facility] 103 [place] [address] Call Back Social History Tobacco Use [...] PM CDT Legal Sex Male 3:08 AM LOOPER OPERATOR Gender Identity Male 12/19/2020 9:52 PM [...] to reach patient: Home number on file [phone] (home) Best Time: Anytime Can we leave a detailed message on this number? NO Travel screening: Not Applicable documented in this encounter Plan of Treatment Upcoming Encounters Date Type Department Care Team (Late st Contact Info) Description 08/18/2024 2:00 PM LOOPER OPERATOR Virtual Visit [facility] [place] [address] [place] [phone] Christen Gallardo MD [facility] [place] [address] 11/20/2024 9:30 AM CDT Office Visit [facility] [address] [place] [phone] Tatyana Dwyer MD [address] [place] [place], [place] 893857 documented as of this encounter Visit Diagnoses Not on filedocumented in this encounter Additional Health Concerns Infection Onset Date Last Indicated Resolved Time Rule Out COVID-19 10/25/2021 10/25/2021 10/26/2021 12:43 PM CDT COVID-19 10/25/2021 10/25/2021 11/15/2021 11:3 9 PM CDT documented as of this encounter Care Teams High Lighter Relationship Specialty Start Date End Date Tatyana Dwyer MD [address] [place] [place], [place] [address] PCP - General Internal Medicine 06/01/19 Annalee Toussaint, PAMarianaC [address] 489[address] Physician Music Theory Teacher Physician Music Theory Teacher - Medical 07/15/19 Cr Fung MD [address] [place] [address] 394 [place], [place] 537415 Urology 07/15/19 Bianca Rubalcava, RN Specialty Application Developer Urology 07/15/19 [place] [address] [place] [address] Assigned Surgical Provider 04/08/20 07/22/21 Wm Ryan MD 420 [place] [address] Resident Student in organized health care education/training program 02/01/21 Tatyana Dwyer MD [address] [place] [address] Assigned PCP 02/05/21 Amalia Agosto GC 2450 [place] [address] Assigned OBGYN Provider 05/07/21 07/15/21 Jaime Wood MD [address] [address] Assigned Sleep Provider 07/09/21 01/04/23 [place] [address] Assigned Endocrinology Provider 11/18/21 Ana Fink MD 420 [place] [address] Fellow Gastroenterology 10/16/22 documented as of this encounter
--- OUTSIDE RECORDS SUMMARY | 2024-07-16 19:59 | XMS_ITS | Encounter Summary ---
Author Organization [place] Address [address] [place] [address] Care Team Providers Care Polyethylene Combiner Name Role Phone Tatyana Dwyer MD Primary Care P rolorettader Tatyana Dwyer MD Unavailable Annalee Toussaint-C Unavailable [phone] Cr Fung MD Unavailable Bianca Rubalcava RN Unavailable [phone] Keegan Montemayor MD Unavailable Un available Joselin Andrade PA-C Unavailable Steven Tatum MD Unavailable Jim Mark MD Unavailable [phone] Jaime Wood MD Unavailable [phone] Annalee Toussaint-C Unavailable [phone] Honey Jackson APRN, CNP Unavailable + [phone] Wm Ryan MD Unavailable Tatyana Dwyer MD Unavailable Amlaia Agosto GC Unavailable [phone] Jaime Wood MD Unavailable [phone] Christen Gallardo MD Unavailable [phone] Ana Fink MD Unavailable Encounter Details Date Type Department Care Team (Late st Contact Info) Description 09/04/2019 MyC Medical Advice [facility] [address] [facility] [address] [place] [phone] Lorrie Ray RN Social History Tobacco Use [...] PM CDT Legal Sex Male 3:08 AM HOSPITAL TRAY SERVICE WORKER Gender Identity Male 12/19/2020 9:52 PM CDT Sexual Orientation Straight 12/19/2020 9: 52 PM CDT documented as of this encounter Plan of Treatment Upcoming Encounters Date Type Department Care Team (Late st Contact Info) Description 08/18/2024 2:00 PM HOSPITAL TRAY SERVICE WORKER Virtual Visit [address] [place] [address] [place] [address] 11/20/2024 9:30 AM CDT Office Visit [facility] [address] [place] [phone] Tatyana Dwyer MD [address] [place], [place] 7[address]67 documented as of this encounter Visit Diagnoses Not on filedocumented in this encounter Additional Health Concerns Infection Onset Date Last Indicated Resolved Time Rule Out COVID-19 10/25/2021 10/25/2021 10/26/2021 12:43 PM CDT COVID-19 10/25/2021 10/25/2021 11/15/2021 11:3 9 PM CDT documented as of this encounter Care Teams Polyethylene Combiner Relationship Specialty Start Date End Date Tatyana Dwyer MD [address] [place] [address] PCP - General Internal Medicine 06/01/19 Tatyana Dwyer MD [address] [place] [address] Assigned PCP 05/31/19 10/15/20 Annalee Toussaint PA-C [address] [address] Physician Cut File Clerk Physician Cut File Clerk - Medical 07/15/19 Cr Fung MD 420 [facility] 394 [place] [address] Urology 07/15/19 Bianca Rubalcava, RODNEY Specialty Truck Driver Supervisor Urology 07/15/19 Keegan Montemayor MD Assigned Heart and Vascular Provider 04/08/20 12/27/20 Joselin Andrade PA-C [address] [place] [address] Assigned Pediatric Specialist Provider 04/08/20 07/17/20 [place] [address] [place] [address] Assigned Surgical Provider 04/08/20 07/22/21 Jim Mark MD [address] [place] [address] Assigned Musculoskeletal Provider 04/08/20 02/11/21 Jaime Wood MD [address] [facility] [address] [place] [address] [place] [address] Assigned Sleep Provider 04/08/2004/08 Annalee Toussaint PA-C [address] [place] [place], [place] 9[address] Assigned OBGYN Provider 08/31/20 1 Honey Jackson APRN CNP [address] [place], [place] 604367 Assigned PCP 10/16/20 02/04/21 Wm Ryan MD 420 [place], [place] 14[address]15 Resident Student in organized health care education/training program 02/01/21 Tatyana Dwyer MD [address] [place], [place] 992097 Assigned PCP 02/05/21 Amalia Agosto GC 2450 [place] [address] Assigned OBGYN Provider 05/07/21 07/15/21 Jaime Wood MD [address] [place] [address] Assigned Sleep Provider 07/09/21 [place] [address] Assigned Endocrinology Provider 11/18/21 Ana Fink MD [address] [place] [address] Fellow Gastroenterology 10/16/22 documented as of this encounter
--- OUTSIDE RECORDS SUMMARY | 2024-07-16 19:59 | XMS_ITS | Encounter Summary ---
Author Organization [place] Address [facility] [place] [address] Care Team Providers Care Technical Associate Name Role Phone Tatyana Dwyer MD Primary Care P rovider Annalee Toussaint-C Unavailable [phone] Cr Fung MD Unavailable Bianca Rubalcava RN Unavailable [phone] Wm Ryan MD Unavailable Tatyana Dwyer MD Unavailable Christen Gallardo MD Unavailable [phone] Ana Fink MD Unavailable Encounter Details Date Type Department Care Team (Late st Contact Info) Description 06/24/2023 [facility] Medical Advice [facility] [address] [address] May Farah Social History Tobacco [...] PM CDT Legal Sex Male 3:08 AM PLUMBING ASSEMBLER INSTALLER Gender Identity Male 12/19/2020 9:52 PM CDT Sexual Orientation Straight 12/19/2020 9: 52 PM CDT documented as of this encounter Plan of Treatment Upcoming Encounters Date Type Department Care Team (Late st Contact Info) Description 08/18/2024 2:00 PM PLUMBING ASSEMBLER INSTALLER Virtual Visit [address] [place] [phone] Christen Gallardo MD [place], [place] [address] 11/20/2024 9:30 AM CDT [facility] Visit [facility] [address] [place] [address] [place] [phone] Tatyana Dwyer MD [address] [place], [place] 384807 documented as of this encounter Visit Diagnoses Not on filedocumented in this encounter Care Teams Technical Associate Relationship Specialty Start Date End Date Tatyana Dwyer MD [address] [place], [place] 987847 PCP - General Internal Medicine 06/01/19 Annalee Toussaint PA-C [address] [address] Physician Electric Frying Pan Repairer Physician Electric Frying Pan Repairer - Medical 07/15/19 Cr Fung MD [address] [place] [address] 394 [place] [address] Urology 07/15/19 Bianca Rubalcava, RN Specialty Commercial Drone Software Developer Urology 07/15/19 Wm Ryan MD [address] [place] [address] 320085 Resident Student in [facility] health care education/training program 02/01/21 Tatyana Dwyer MD [address] [place], [place] 208527 Assigned PCP 02/05/21 Christen Gallardo MD [facility] [place], [place] [address] Assigned Endocrinology Provider 11/18/21 Ana Fink MD [address] [place] [address] 920195 Fellow Gastroenterology 10/16/22 documented as of this encounter
--- OUTSIDE RECORDS SUMMARY | 2024-07-16 19:59 | XMS_ITS | Encounter Summary ---
Author Organization [place] Address [address] [place] [address]. [place] [address] Care Team Providers Care Naphthalene Operator Helper Name Role Phone Tatyana Dwyer MD Primary Care P rovider Ananlee Toussaint-C Unavailable [phone] Cr Fung MD Unavailable Bianca Rubalcava RN Unavailable [phone] Wm Ryan MD Unavailable [phone] Tatyana Dwyer MD Unavailable Christen Gallardo MD Unavailable [phone] Ana Fink MD Unavailable Encounter Details Date Type Department Care Team (Late st Contact Info) Description 04/03/2023 [facility] [address] [address] [facility] Social History Tobacco Use Types [...] PM CDT Legal Sex Male 3:08 AM ENGINEER CHIEF Gender Identity Male 12/19/2020 9:52 PM CDT [...] st Contact Info) Description 08/18/2024 2:00 PM ENGINEER CHIEF Virtual Visit [address] [phone] [place] [address] 11/20/2024 9:30 AM CDT Office Visit [address] [place] [phone] Tatyana Dwyer MD [address] [place], [place] 981767 documented as of this encounter Visit Diagnoses Not on filedocumented in this encounter Care Teams Naphthalene Operator Helper Relationship Specialty Start Date End Date Tatyana Dwyer MD [address] [place], [place] 335847 PCP - General Internal Medicine 06/01/19 Annalee Toussaint PA-C [address] [address] Physician Heel Brusher Physician Heel Brusher - Medical 07/15/19 Cr Fung MD [address] [place] [address] 394 [place] [address] Urology 07/15/19 Bianca Rubalcava, RODNEY Specialty Export Sales Assistant Urology 07/15/19 Wm Ryan MD [address] [place] [address] 4799[address] Resident Student in [facility] health care education/training program 02/01/21 Tatyana Dwyer MD [address] [place], [place] 619637 Assigned PCP 02/05/21 Christen Gallardo MD [place] [address] Assigned Endocrinology Provider 11/18/21 Ana Fink MD [address] [place] [address] Fellow Gastroenterology 10/16/22 documented as of this encounter
--- OUTSIDE RECORDS SUMMARY | 2024-07-16 19:59 | XMS_ITS | Encounter Summary ---
Author Organization [facility] Address [address] [place] [address] Care Team Providers Care Tank Cooper Name Role Phone Tatyana Dwyer MD Primary Care P rolorettader Tatyana Dwyer MD Unavailable Annalee Toussaint-C Unavailable [phone] Cr Fung MD Unavailable Bianca Rubalcava RN Unavailable [phone] Keegan Montemayor MD Unavailable Un available Joselin Andrade PA-C Unavailable Steven Tatum MD Unavailable Jim Mark MD Unavailable [phone] Jaime Wood MD Unavailable [phone] Annalee Toussaint-C Unavailable [phone] Honey Jackson APRN, CNP Unavailable + [phone] Wm Ryan MD Unavailable Tatyana Dwyer MD Unavailable Amalia Agosto GC Unavailable [phone] Jaime Wood MD Unavailable [phone] Christen Gallardo MD Unavailable [phone] Ana Fink MD Unavailable Encounter Details Date Type Department Care Team (Late st Contact Info) Description 06/26/2019 MyC Medical Advice [facility] Urology [facility] [address] [facility] [address] [place] [phone] Annalee Toussaint, PA-C [address] [facility] [address] [place] [id number] Social History Tobacco Use Types Packs/Day Years [...] PM CDT Legal Sex Male 3:08 AM INSTRUCTIONAL SYSTEMS SPECIALIST Gender Identity Male 12/19/2020 9:52 PM CDT Sexual Orientation Straight 12/19/2020 9: 52 PM CDT documented as of this encounter Plan of Treatment Upcoming Encounters Date Type Department Care Team (Late st Contact Info) Description 08/18/2024 2:00 PM INSTRUCTIONAL SYSTEMS SPECIALIST Virtual Visit [facility] Specialty [facility] [address] [place] [address] [address] [place] [phone] Christen Gallardo MD [place] [address] 11/20/2024 9:30 AM CDT Office Visit [address] [place] [phone] Tatyana Dwyer MD [address] [place] [address] documented as of this encounter Visit Diagnoses Not on filedocumented in this encounter Additional Health Concerns Infection Onset Date Last Indicated Resolved Time Rule Out COVID-19 10/25/2021 10/25/2021 10/26/2021 12:43 PM CDT COVID-19 10/25/2021 10/25/2021 11/15/2021 11:3 9 PM CDT documented as of this encounter Care Teams Tank Cooper Relationship Specialty Start Date End Date Tatyana Dwyer MD [address] [place], [place] 821057 PCP - General Internal Medicine 06/01/19 Tatyana Dwyer MD [address] [place] [address] Assigned PCP 05/31/19 10/15/20 Annalee Toussaint PA-C [address] 307725 Physician Mold Technician Physician Mold Technician - Medical 07/15/19 Cr Fung MD [address] [place] [address] 450865 Urology 07/15/19 Bianca Rubalcaav, RN Specialty Livestock Showman Urology 07/15/19 Keegan Montemayor MD Assigned Heart and Vascular Provider 04/08/20 12/27/20 Joselin Andrade PA-C [address] [place] [address] Assigned Pediatric Specialist Provider 04/08/20 07/17/20 [place] [address] [place] [address] [id number] Assigned Surgical Provider 04/08/20 07/22/21 Jim Mark MD [address] [place] [address] 410285 Assigned Musculoskeletal Provider 04/08/20 02/11/21 Jaime Wood MD [address] [facility] [address] [place] [place] [address] Assigned Sleep Provider 04/08/2004/08 Annalee Toussaint, PAMarianaC [address] [place] [place], [place] 9[address]65 Assigned OBGYN Provider 08/31/20 1 Honey Jackson APRN [facility] [address] [place], [place] 647947 Assigned PCP 10/16/20 02/04/21 Wm Ryan MD [address] [place] [address] [id number] Resident Student in organized health care education/training program 02/01/21 Tatyana Dwyer MD [address] [place] [address] Assigned PCP 02/05/21 Amalia Agosto GC 2450 [place] [address] Assigned OBGYN Provider 05/07/21 07/15/21 Jaime Wood MD [address] [address] Assigned Sleep Provider 07/09/21 Christen Gallardo [place] [address] Assigned Endocrinology Provider 11/18/21 Ana Fink MD [address] [place] [address] Fellow Gastroenterology 10/16/22 documented as of this encounter
--- OUTSIDE RECORDS SUMMARY | 2024-07-16 19:59 | XMS_ITS | Encounter Summary ---
Author Organization [facility] Address [address] [place] [address] Care Team Providers Care Rap Artist Name Role Phone Tatyana Dwyer MD Primary Care P rovider Annalee ToussaintC Unavailable [phone] Cr Fung MD Unavailable Bianca Rubalcava RN Unavailable [phone] Wm Ryan MD Unavailable [phone] Tatyana Dwyer MD Unavailable Christen Gallardo MD Unavailable [phone] Ana Fink MD Unavailable Encounter Details Date Type Department Care Team (Late st Contact Info) Description 06/18/2023 [facility] Medical Advice [facility] Clinic [address] [address] Jailyn Crawford Social History Tobacco [...] PM CDT Legal Sex Male 3:08 AM DIRECTOR FIELD SERVICES Gender Identity Male 12/19/2020 9:52 PM CDT Sexual Orientation Straight 12/19/2020 9: 52 PM CDT documented as of this encounter Plan of Treatment Upcoming Encounters Date Type Department Care Team (Late st Contact Info) Description 08/18/2024 2:00 PM DIRECTOR FIELD SERVICES Virtual Visit [facility] [address] [place] [address] [address] [place] [phone] Christen Gallardo MD [place], [place] [id number] 11/20/2024 9:30 AM CDT Office Visit [facility] [address] [facility] [address] [place] [phone] Tatyana Dwyer MD [address] [place], [place] 309777 documented as of this encounter Visit Diagnoses Not on filedocumented in this encounter Care Teams Rap Artist Relationship Specialty Start Date End Date Tatyana Dwyer MD [address] [place], [place] 344457 PCP - General Internal Medicine 06/01/19 Annalee Toussaint PA-C 6363 [facility] 500 [place] [address] Physician Auto Body Detailer Physician Auto Body Detailer - Medical 07/15/19 Cr Fung MD 420 [facility] 394 [place] [address] Urology 07/15/19 Bianca Rubalcava, RN Specialty Indirect Sales Representative Urology 07/15/19 Wm Ryan MD [address] [place] [address] 016565 Resident Student in [facility] health care education/training program 02/01/21 Tatyana Dwyer MD [address] [place], [place] 586137 Assigned PCP 02/05/21 Christen Gallardo MD [facility] [place], [place] [address] Assigned Endocrinology Provider 11/18/21 Ana Fink MD [address] [place] [address] [phone] Fellow Gastroenterology 10/16/22 documented as of this encounter
--- OUTSIDE RECORDS SUMMARY | 2024-07-16 19:59 | XMS_ITS | Encounter Summary ---
Author Organization [facility] Address [address] [place] [address] Care Team Providers Care Landscaping Manager Name Role Phone Tatyana Dwyer MD Primary Care P rolorettader Tatyana Dwyer MD Unavailable Annalee Toussaint-C Unavailable Cr Fung MD Unavailable Bianca Rubalcava RN Unavailable [phone] Keegan Montemayor MD Unavailable Un available Joselin Andrade PA-C Unavailable [phone] Steven Tatum MD Unavailable Jim Mark MD Unavailable [phone] Jaime Wood MD Unavailable [phone] Annalee Toussaint-C Unavailable [phone] Honey Jackson APRN, CNP Unavailable + [phone] Wm Ryan MD Unavailable [phone] Tatyana Dwyer MD Unavailable Amalia Agosto GC Unavailable [phone] Jaime Wood MD Unavailable [phone] Christen Gallardo MD Unavailable [phone] Ana Fink MD Unavailable Encounter Details Date Type Department Care Team (Late st Contact Info) Description 06/25/2019 MyC Medical Advice [facility] Heart [facility] [address] [facility] 140 [place] [phone] Keegan Montemayor MD Social History Tobacco Use [...] PM CDT Legal Sex Male 3:08 AM CARRY OUT CLERK AND SHELF STOCKER Gender Identity Male 12/19/2020 9:52 PM CDT Sexual Orientation Straight 12/19/2020 9: 52 PM CDT documented as of this encounter Plan of Treatment Upcoming Encounters Date Type Department Care Team (Late st Contact Info) Description 08/18/2024 2:00 PM CARRY OUT CLERK AND SHELF STOCKER Virtual Visit [address] [phone] Christen Gallardo MD [place] [address] 11/20/2024 9:30 AM CDT Office Visit [facility] [address] [place] [address] Tatyana Dwyer MD [address] [place] [address] documented as of this encounter Visit Diagnoses Not on filedocumented in this encounter Additional Health Concerns Infection Onset Date Last Indicated Resolved Time Rule Out COVID-19 10/25/2021 10/25/2021 10/26/2021 12:43 PM CDT COVID-19 10/25/2021 10/25/2021 11/15/2021 11:3 9 PM CDT documented as of this encounter Care Teams Landscaping Manager Relationship Specialty Start Date End Date Tatyana Dwyer MD [address] [place] [address] PCP - General Internal Medicine 06/01/19 Tatyana Dwyer MD [address] [place] [address] Assigned PCP 05/31/19 10/15/20 Annalee Toussaint PA-C [address] [address] Physician Real Estate Legal Assistant Physician Real Estate Legal Assistant - Medical 07/15/19 Cr Fung MD 420 [facility] 394 [place], [place] 6[address] Urology 07/15/19 Bianca Rubalcava, RN Specialty After School Counselor Urology 07/15/19 Keegan Montemayor MD Assigned Heart and Vascular Provider 04/08/20 12/27/20 Joselin Andrade PA-C [address] [place] [address] Assigned Pediatric Specialist Provider 04/08/20 07/17/20 [place] [address] [facility] [address] Assigned Surgical Provider 04/08/20 07/22/21 Jim Mark MD [address] [place] [address] Assigned Musculoskeletal Provider 04/08/20 02/11/21 Jaime Wood MD [address] [place] [address] Assigned Sleep Provider 04/08/2004/08 Annalee Toussaint PA-C [address] [place] [place], [place] [address]25[address] Assigned OBGYN Provider 08/31/20 1 Honey Jackson APRN [facility] [address] [place], [place] 776727 Assigned PCP 10/16/20 02/04/21 Wm Ryan MD 420 [place], [place] 385545 Resident Student in organized health care education/training program 02/01/21 Tatyana Dwyer MD [address] [place], [place] 391597 Assigned PCP 02/05/21 Amalia Agosto GC 2450 [place] [address] Assigned OBGYN Provider 05/07/21 07/15/21 Jaime Wood MD [address] [place] [place] [address] Assigned Sleep Provider 07/09/21 [place] [address] Assigned Endocrinology Provider 11/18/21 Ana Fink MD [address] [place] [address] Fellow Gastroenterology 10/16/22 documented as of this encounter
--- OUTSIDE RECORDS SUMMARY | 2024-07-16 19:59 | XMS_ITS | Encounter Summary ---
Author Organization [facility] Address [address] [place] [address] Care Team Providers Care Ground Helper Street Railway Name Role Phone Tatyana Dwyer MD Primary Care P rovider Annalee Toussaint PA-C Unavailable Cr Fung MD Unavailable Bianca Rubalcava RN Unavailable [phone] Steven Tatum MD Unavailable Wm Ryan MD Unavailable Tatyana Dwyer MD Unavailable Amalia Agosto GC Unavailable [phone] Jaime Wood MD Unavailable Christen Gallardo MD Unavailable [phone] Ana Fink MD Unavailable Encounter Details Date Type Department Care Team (Late st Contact Info) Description 04/17/2021 [facility] [place] [address] [place] [address] Oneil Marin Social History Tobacco Use [...] PM CDT Legal Sex Male 3:08 AM EQUALIZER OPERATOR Gender Identity Male 12/19/2020 9:52 PM [...] st Contact Info) Description 08/18/2024 2:00 PM EQUALIZER OPERATOR Virtual Visit [address] [phone] [place] [address] 11/20/2024 9:30 AM CDT Office Visit [address] [place] [phone] Tatyana Dwyer MD [address] [place] [address] documented as of this encounter Visit Diagnoses Not on filedocumented in this encounter Additional Health Concerns Infection Onset Date Last Indicated Resolved Time Rule Out COVID-19 10/25/2021 10/25/2021 10/26/2021 12:43 PM CDT COVID-19 10/25/2021 10/25/2021 11/15/2021 11:3 9 PM CDT documented as of this encounter Care Teams Ground Helper [address] Railway Relationship Specialty Start Date End Date Tatyana Dwyer MD [address] [place] [address] PCP - General Internal Medicine 06/01/19 Annalee Toussaint PA-C 6363 [facility] [address] [place], [place] [address] Physician Air Launch Weapons Technician Physician Air Launch Weapons Technician - Medical 07/15/19 Cr Fung MD [address] [id number] Urology 07/15/19 Bianca Rubalcava, RODNEY Specialty Log Handler Urology 07/15/19 [place] [address] [place] [address] 456669 Assigned Surgical Provider 04/08/20 07/22/21 Wm Ryan MD 420 [place], [place] 549875 Resident Student in organized health care education/training program 02/01/21 Tatyana Dwyer MD [address] [place] [address] Assigned PCP 02/05/21 Amalia Agosto GC 2450 [place], [place] 463154 Assigned OBGYN Provider 05/07/21 07/15/21 Jaime Wood MD [address] [facility] [address] [place], [place] 8[address] Assigned Sleep Provider 07/09/21 01/04/23 [place] [address] Assigned Endocrinology Provider 11/18/21 Ana Fink MD [address] [place] [address] Fellow Gastroenterology 10/16/22 documented as of this encounter
--- OUTSIDE RECORDS SUMMARY | 2024-07-16 19:59 | XMS_ITS | Encounter Summary ---
Author Organization [facility] Address [address] [place] [address]. [place] [address] Care Team Providers Care Rn Imcu Name Role Phone Tatyana Dwyer MD Primary Care P rovider Annalee Toussaint PA-C Unavailable Cr Fung MD Unavailable [phone] Bianca Rubalcava RN Unavailable [phone] Steven Tatum MD Unavailable Wm Ryan MD Unavailable [phone] Tatyana Dwyer MD Unavailable Amalia Agosto GC Unavailable [phone] Jaime Wood MD Unavailable [phone] Christen Gallardo MD Unavailable [phone] Ana Fink MD Unavailable Encounter Details [...] PM CDT Legal Sex Male 3:08 AM JAVA SYSTEMS ANALYST Gender Identity Male 12/19/2020 9:52 PM CDT Sexual Orientation Straight 12/19/2020 9: 52 PM CDT documented as of this encounter Plan of Treatment Upcoming Encounters Date Type Department Care Team (Late st Contact Info) Description 08/18/2024 2:00 PM JAVA SYSTEMS ANALYST Virtual Visit [address] [place] [address] [place] [address] 11/20/2024 9:30 AM CDT Office Visit [facility] [address] [facility] [place] [address] [place] [phone] Tatyana Dwyer MD [address] [place] [address] documented as of this encounter Visit Diagnoses Not on filedocumented in this encounter Additional Health Concerns Infection Onset Date Last Indicated Resolved Time Rule Out COVID-19 10/25/2021 10/25/2021 10/26/2021 12:43 PM CDT COVID-19 10/25/2021 10/25/2021 11/15/2021 11:3 9 PM CDT documented as of this encounter Care Teams Rn Imcu Relationship Specialty Start Date End Date Tatyana Dwyer MD [address] [place], [place] 310887 PCP - General Internal Medicine 06/01/19 Annalee Toussaint PA-C [address] [place], [place] 4[address] Physician Account Relationship Manager Physician Account Relationship Manager - Medical 07/15/19 Cr Fung MD 420 [facility] 394 [place], [place] 437825 Urology 07/15/19 Bianca Rubalcava, RN Specialty Graduate Advisor Urology 07/15/19 [place] [address] [place] [address] 514609 Assigned Surgical Provider 04/08/20 07/22/21 Wm Ryan MD 420 [place] [address] Resident Student in organized health care education/training program 02/01/21 Tatyana Dwyer MD [address] [place] [address] Assigned PCP 02/05/21 Amalia Agosto GC 2450 [place] [address] Assigned OBGYN Provider 05/07/21 07/15/21 Jaime Wood MD [address] [facility] [address] [place], [place] [address] Assigned Sleep Provider 07/09/21 01/04/23 Christen Gallardo MD [facility] [place], [place] [address] Assigned Endocrinology Provider 11/18/21 Ana Fink MD [address] [place] [address] Fellow Gastroenterology 10/16/22 documented as of this encounter
--- OUTSIDE RECORDS SUMMARY | 2024-07-16 19:59 | XMS_ITS | Encounter Summary ---
Author Organization [facility] Address [address] [place] [address] Care Team Providers Care Nitrator Operator Name Role Phone Tatyana Dwyer MD Primary Care P rolorettader Tatyana Dwyer MD Unavailable Annalee Toussaint PA-C Unavailable Cr Fung MD Unavailable [phone] Bianca Rubalcava RN Unavailable [phone] Keegan Montemayor MD Unavailable Un available Steven Tatum MD Unavailable Jim Mark MD Unavailable Jaime Wood MD Unavailable [phone] Annalee Toussaint PA-C Unavailable [phone] Honey Jackson APRN, CNP Unavailable + [phone] Wm Ryan MD Unavailable Tatyana Dwyer MD Unavailable Amalia Agosto GC Unavailable [phone] Jaime Wood MD Unavailable [phone] Christen Gallardo MD Unavailable [phone] Ana Fink MD Unavailable Reason for Visit * Reason Onset Date Comments Refill Request 10/03/2020 nebivolol (BYSTO LIC) 2.5 MG tablet Encounter Details Date Type Department Care Team (Late Contact Info) Description 10/03/2020 Refill [facility] [address] [facility] [address] [place] [address] Tatyana Dwyer MD [address] [place] [address] Refill Request (nebivolol (BYSTOLIC) 2.5 MG tablet) [...] PM CDT Legal Sex Male 3:08 AM SHIP BOSS Gender Identity Male 12/19/2020 9:52 PM CDT Sexual Orientation Straight 12/19/2020 9: 52 PM CDT documented as of this encounter Miscellaneous Notes * Telephone Encounter - Barbara Ambrose RN - 10/05/2020 3:18 PM CDT Medication refill denied, previously sent to different [facility] location. Should be available refill on file. documented in this encounter Plan of Treatment Upcoming Encounters Date Type Department Care Team ([facility] Contact Info) Description 08/18/2024 2:00 PM SHIP BOSS Virtual Visit [address] [place] [phone] Christen Gallardo MD [facility] [place] [address] 11/20/2024 9:30 AM CDT Office Visit [facility] [address] [place] [phone] Tatyana Dwyer MD [address] [place], [place] 8[address] documented as of this encounter Visit Diagnoses Diagnosis Tachycardia Tachycardia, unspecified HTN, goal below 140/90 Unspecified essential hypertension documented in this encounter Additional Health Concerns Infection Onset Date Last Indicated Resolved Time Rule Out COVID-19 10/25/2021 10/25/2021 10/26/2021 12:43 PM CDT COVID-19 10/25/2021 10/25/2021 11/15/2021 11:3 9 PM CDT documented as of this encounter Care Teams Nitrator Operator Relationship Specialty Start Date End Date Tatyana Dwyer MD [address] [place], [place] 365357 PCP - General Internal Medicine 06/01/19 Tatyana Dwyer MD [address] [place], [place] 807587 Assigned PCP 05/31/19 10/15/20 Annalee Toussaint PA-C [address] [address] Physician Jewelry Finisher Physician Jewelry Finisher - Medical 07/15/19 Cr Fung MD [address] [place] [address] 367125 Urology 07/15/19 Bianca Rubalcava, RN Specialty Transport Analyst Urology 07/15/19 Keegan Montemayor MD Assigned Heart and Vascular Provider 04/08/20 12/27/20 [place] [address] [place], [place] 82[address] Assigned Surgical Provider 04/08/20 07/22/21 Jim Mark MD [address] [place], [place] 269625 Assigned Musculoskeletal Provider 04/08/20 02/11/21 Jaime Wood MD [address] [place] [address] Assigned Sleep Provider 04/08/2004/08 Annalee Toussaint, DUSTYC [address] [place], [place] [address] Assigned OBGYN Provider 08/31/20 1 Honey Jackson APRN POULTRY HELPER [address] [place], [place] 119457 Assigned PCP 10/16/20 02/04/21 Wm Ryan MD [address] [place] [address] 755975 Resident Student in organized health care education/training program 02/01/21 Tatyana Dwyre MD [address] [place] [address] Assigned PCP 02/05/21 Amalia Agosto GC 2450 [place] [address] Assigned OBGYN Provider 05/07/21 07/15/21 Jaime Wood MD [address] [address] Assigned Sleep Provider 07/09/21 Christen Gallardo [place] [address] Assigned Endocrinology Provider 11/18/21 Ana Fink MD [address] [place] [address] Fellow Gastroenterology 10/16/22 documented as of this encounter
--- OUTSIDE RECORDS SUMMARY | 2024-07-16 19:59 | XMS_ITS | Encounter Summary ---
Author Organization [place] Address [address] [place] [address] Care Team Providers Care Can Solderer Name Role Phone Tatyana Dwyer MD Primary Care P rovider Annalee Toussaint-C Unavailable [phone] Cr Fung MD Unavailable [phone] Bianca Rubalcava RN Unavailable [phone] Steven Tatum MD Unavailable Jaime Wood MD Unavailable [phone] Wm Ryan MD Unavailable [phone] Tatyana Dwyer MD Unavailable Amalia Agosto GC Unavailable [phone] Jaime Wood MD Unavailable [phone] Christen Gallardo MD Unavailable [phone] Ana Fink MD Unavailable Encounter Details Date Type Department Care Team (Late st Contact Info) Description 04/06/2021 External Order Results [facility] [address] [place] [address] Outside, Provider Social History Tobacco Use Types [...] PM CDT Legal Sex Male 3:08 AM APPLICATIONS INSTRUCTOR Gender Identity Male 12/19/2020 9:52 PM CDT [...] st Contact Info) Description 08/18/2024 2:00 PM APPLICATIONS INSTRUCTOR Virtual Visit [address] [place] [phone] [place] [address] 11/20/2024 9:30 AM CDT Office Visit [address] [place] [address] [place] [address] Tatyana Dwyer MD [address] [place] [address] documented as of this encounter Visit Diagnoses Not on filedocumented in this encounter Additional Health Concerns Infection Onset Date Last Indicated Resolved Time Rule Out COVID-19 10/25/2021 10/25/2021 10/26/2021 12:43 PM CDT COVID-19 10/25/2021 10/25/2021 11/15/2021 11:3 9 PM CDT documented as of this encounter Care Teams Can Solderer Relationship Specialty Start Date End Date Tatyana Dwyer MD [address] [place] [address] PCP - General Internal Medicine 06/01/19 Annalee Toussaint PA-C [address] [place], [place] [address] Physician Lasting Floorworker Physician Lasting Floorworker - Medical 07/15/19 Cr Fung MD [address] [address] Urology 07/15/19 Bianca Rubalcava, RODNEY Specialty Histotechnologist Supervisor Urology 07/15/19 [place] [address] [place] [address] Assigned Surgical Provider 04/08/20 07/22/21 Jaime Wood MD [address] [place] [address] Assigned Sleep Provider 04/08/20 04/08/21 Wm Ryan MD [address] [place] [address] [phone] Resident Student in organized health care education/training program 02/01/21 Tatyana Dwyer MD [address] [place] [address] Assigned PCP 02/05/21 Amalia Agosto GC 2450 [place] [address] Assigned OBGYN Provider 05/07/21 07/15/21 Jaime Wood MD [address] [address] Assigned Sleep Provider 07/09/21 01/04/23 Christen Gallardo MD [facility] [place] [address] Assigned Endocrinology Provider 11/18/21 Ana Fink MD [address] [place] [address] Fellow Gastroenterology 10/16/22 documented as of this encounter
--- OUTSIDE RECORDS SUMMARY | 2024-07-16 19:59 | XMS_ITS | Encounter Summary ---
Author Organization [place] Address [facility]0 [facility] [place] [address] Care Team Providers Care Grout Machine Tender Name Role Phone Tatyana Dwyer MD Primary Care P rovider Annalee Toussaint-C Unavailable [phone] Cr Fung MD Unavailable Bianca Rubalcava RN Unavailable [phone] Wm Ryan MD Unavailable [phone] Tatyana Dwyer MD Unavailable Christen Gallardo MD Unavailable [phone] Ana Fink MD Unavailable Encounter Details Date Type Department Care Team (Late st Contact Info) Description 05/22/2023 [facility] [place] [facility] [address] [address] Christen Gallardo [place] [address] Social History Tobacco Use Types [...] CDT Legal Sex Male 3:08 AM AUTO BENCH MECHANIC Gender Identity Male 12/19/2020 9:52 PM CDT Sexual Orientation Straight 12/19/2020 9: 52 PM CDT documented as of this encounter Plan of Treatment Upcoming Encounters Date Type Department Care Team (Late st Contact Info) Description 08/18/2024 2:00 PM AUTO BENCH MECHANIC Virtual Visit [address] [place] [phone] [place] [address] 11/20/2024 9:30 AM CDT Office Visit [facility] [address] [place] [address] Tatyana Dwyer MD [address] [place], [place] [address] documented as of this encounter Visit Diagnoses Not on filedocumented in this encounter Care Teams Grout Machine Tender Relationship Specialty Start Date End Date Tatyana Dwyer MD [address] [place], [place] [address] PCP - General Internal Medicine 06/01/19 Annalee Toussaint PA-C [address] [address] Physician Traffic Technician Physician Traffic Technician - Medical 07/15/19 Cr Fung MD [address] [place] [address] [address] [place] [address] Urology 07/15/19 Bianca Rubalcava, RN Specialty Clarity Developer Urology 07/15/19 Wm Ryan MD [address] [place] [address] 829165 Resident Student in organized health care education/training program 02/01/21 Tatyana Dwyer MD [address] [place], [place] 407337 Assigned PCP 02/05/21 Christen Gallardo [place] [address] Assigned Endocrinology Provider 11/18/21 Ana Fink MD [address] [place] [address] Fellow Gastroenterology 10/16/22 documented as of this encounter
--- OUTSIDE RECORDS SUMMARY | 2024-07-16 19:59 | XMS_ITS | Encounter Summary ---
Author Organization [place] Address [address] [place] [address] Care Team Providers Care Frame Cleaner Name Role Phone Tatyana Dwyer MD Primary Care P rolorettader Tatyana Dwyer MD Unavailable Annalee Toussaint PA-C Unavailable [phone] Cr Fung MD Unavailable [phone] Bianca Rubalcava RN Unavailable [phone] Keegan Montemayor MD Unavailable Un available Steven Tatum MD Unavailable Jim Mark MD Unavailable Jaime Wood MD Unavailable [phone] Annalee Toussaint PA-C Unavailable [phone] Honey Jackson APRN, CNP Unavailable + [phone] Wm Ryan MD Unavailable [phone] Tatyana Dwyer MD Unavailable Amalia Agosto GC Unavailable [phone] Jaime Wood MD Unavailable [phone] Christen Gallardo MD Unavailable [phone] Ana Fink MD Unavailable Encounter Details Date Type Department Care Team (Late st Contact Info) Description 08/29/2020 MyC Medical Advice [facility] [address] [facility] [address] [place] [phone] Lucinda Alaniz MA Social History Tobacco Use [...] CDT Legal Sex Male 3:08 AM COMMERCIAL DIRECTOR Gender Identity Male 12/19/2020 9:52 PM CDT Sexual Orientation Straight 12/19/2020 9: 52 PM CDT COVID-19 Exposure Response Date Recorded In the last month, have you been in contact with someone who was confirmed or suspected to have Coronavirus / COVID-19? No / Unsure 08/23/2020 12:45 PM COMMERCIAL DIRECTOR documented as of this encounter Plan of Treatment Upcoming Encounters Date Type Department Care Team (Late st Contact Info) Description 08/18/2024 2:00 PM COMMERCIAL DIRECTOR Virtual Visit [address] [phone] Christen Gallardo MD [facility] [place], [place] [address] 11/20/2024 9:30 AM CDT Office Visit [place] [address] [place] [phone] Tatyana Dwyer MD [facility] [place] [address] documented as of this encounter Visit Diagnoses Not on filedocumented in this encounter Additional Health Concerns Infection Onset Date Last Indicated Resolved Time Rule Out COVID-19 10/25/2021 10/25/2021 10/26/2021 12:43 PM CDT COVID-19 10/25/2021 10/25/2021 11/15/2021 11:3 9 PM CDT documented as of this encounter Care Teams Frame Cleaner Relationship Specialty Start Date End Date Tatyana Dwyer MD [address] [place], [place] [address] PCP - General Internal Medicine 06/01/19 Tatyana Dwyer MD [address] [place] [address] Assigned PCP 05/31/19 10/15/20 Annalee Toussaint PAMarianaC [address] 6239[address] Physician Cover Marker Physician Cover Marker - Medical 07/15/19 Cr Fung MD [address] [place] [address] 394 [place], [place] [address] Urology 07/15/19 Bianca Rubalcava, RN Specialty Research Program Assistant Urology 07/15/19 Keegan Montemayor MD Assigned Heart and Vascular Provider 04/08/20 12/27/20 [place] [address] [place] [address] Assigned Surgical Provider 04/08/20 07/22/21 Jim Mark MD [address] [place] [address] [id number] Assigned Musculoskeletal Provider 04/08/20 02/11/21 Jaime Wood MD [address] [place] [address] Assigned Sleep Provider 04/08/2004/08 Annalee Toussaint PA-C [address] [place], [place] [address] Assigned OBGYN Provider 08/31/20 1 Honey Jackson APRN CNP [address] [place], [place] 69[address] Assigned PCP 10/16/20 02/04/21 Wm Ryan MD [address] [place], [place] 427535 Resident Student in organized health care education/training program 02/01/21 Tatyana Dwyer MD [address] [place] [address] Assigned PCP 02/05/21 Amalia Agosto GC [address] [place], [place] 7767[address] Assigned OBGYN Provider 05/07/21 07/15/21 Jaime Wood MD [address] [place] [address] Assigned Sleep Provider 07/09/21 [place] [address] Assigned Endocrinology Provider 11/18/21 Ana Fink MD [address] [place] [address] Fellow Gastroenterology 10/16/22 documented as of this encounter
--- OUTSIDE RECORDS SUMMARY | 2024-07-16 19:59 | XMS_ITS | Encounter Summary ---
Author Organization [place] Address [address] [place] [address]. [place] [address] Care Team Providers Care Front Desk Coordinator Name Role Phone Tatyana Dwyer MD Primary Care P rovider Annalee Toussaint-C Unavailable [phone] Cr Fung MD Unavailable [phone] Bianca Rubalcava RN Unavailable [phone] Wm Ryan MD Unavailable [phone] Tatyana Dwyer MD Unavailable Chirsten Gallardo MD Unavailable [phone] Ana Fink MD Unavailable Encounter Details Date Type Department Care Team (Late st Contact Info) Description 07/01/2023 [facility] [place] [facility] [address] [address] Nita Esteban, RN Social History [...] PM CDT 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 Gender Identity Male 12/19/2020 9:52 PM CDT Sexual Orientation Straight 12/19/2020 9: 52 PM CDT documented as of this encounter Plan of Treatment Upcoming Encounters Date Type Department Care Team (Late st Contact Info) Description 08/18/2024 2:00 PM DIESEL TRUCK DRIVER Virtual Visit [facility] [address] [place] [address] [address] [place] [address] Christen Gallardo MD [place], [place] [phone] 11/20/2024 9:30 AM CDT Office Visit [facility] [address] [facility] [address] [place] [phone] Tatyana Dwyer MD [address] [place], [place] [address]997 documented as of this encounter Visit Diagnoses Not on filedocumented in this encounter Care Teams Front Desk Coordinator Relationship Specialty Start Date End Date Tatyana Dwyer MD [address] [place], [place] [address]487 PCP - General Internal Medicine 06/01/19 Annalee Toussaint PA-C 6363 [facility] 500 [place] [address] Physician Leak Detection Engineer Physician Leak Detection Engineer - Medical 07/15/19 Cr Fung MD [address] [facility] 394 [place] [address] Urology 07/15/19 Bianca Rubalcava, RN Specialty Sorting Machine Operator Urology 07/15/19 Wm Ryan MD [address] [place] [address] [phone] Resident Student in organized health care education/training program 02/01/21 Tatyana Dwyer MD [address] [place] [address] Assigned PCP 02/05/21 Christen Gallardo MD [facility] [place], [place] [address] Assigned Endocrinology Provider 11/18/21 Ana Fink MD [address] [place] [address] Fellow Gastroenterology 10/16/22 documented as of this encounter
--- OUTSIDE RECORDS SUMMARY | 2024-07-16 19:59 | XMS_ITS | Encounter Summary ---
Author Organization [place] Address [address] [place] [address] Care Team Providers Care Work Study Student Name Role Phone Tatyana Dwyer MD Primary Care P rovider Annalee Toussaint PA-C Unavailable [phone] Cr Fung MD Unavailable Bianca Rubalcava RN Unavailable [phone] Wm Ryan MD Unavailable Tatyana Dwyer MD Unavailable Christen Galalrdo MD Unavailable [phone] Ana Fink MD Unavailable Reason for Referral * Consultation (Routine: Next available opening) - Closed Specialty Diagnoses / Procedures Referred By Contdonte t Referred To Contact Diagnoses Family history of colon cancer Manish Ryan MD [facility] GASTRO[facility]TEST[facility]AL [address] [place] [address] Phone: tel: fax: Referral ID Status Reason Start Date Expiration Date Visits Re quested Visits Authorized [id number] Closed 06/14/2023 06/13/2024 1 1 Question Answer Service: Screening Sedation Concerns: No medical conditions affecting sedation Sedation Type: Moderate/Conscious Sedation Preferred Location: [facility] Scheduling Instructions: [facility] will call you to coordinate your care as prescribed by the provider. If you don t hear from a labor service representative within 2 business days, please call . Comments Please be aware that coverage of these services is subject to the terms and limitations of your health insurance plan. Call member services at your health plan with any benefit or coverage questions. [facility] will call you to coordinate your care as prescribed by the provider. If you don t hear from a labor service representative within 2 business days, please call . 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 Gender Identity Male 12/19/2020 9:52 PM CDT Sexual Orientation Straight 12/19/2020 9: 52 PM CDT documented as of this encounter Plan of Treatment Upcoming Encounters Date Type Department Care Team (Late st Contact Info) Description 08/18/2024 2:00 PM VISUAL BASIC .NET DEVELOPER Virtual Visit [facility] [address] [place] [address] [address] [place] [address] [place] [address] 11/20/2024 9:30 AM CDT Office Visit [facility] [address] [place] [phone] Tatyana Dwyer MD [address] [place], [place] [address] Scheduled Referrals Name Type Priority Associated Diagnoses Order Schedule Colonoscopy Screening Electrolog Operator Referral Referral Routine: Next available opening Family history of colon cancer Expected: 06/14/2023 (Approximate), Expires: 06/14/2024 documented as of this encounter Visit Diagnoses Diagnosis Family history of colon cancer- Primary Family history of malignant neoplasm of gastrointestinal tract documented in this encounter Care Teams Work Study Student Relationship Specialty Start Date End Date Tatyana Dweyr MD [address] [place], [place] [phone] PCP - General Internal Medicine 06/01/19 Annalee Toussaint, DUSTYC [address] [facility] 500 [place], [place] [address] Physician Nurse Supervisor Physician Nurse Supervisor - Medical 07/15/19 Cr Fung MD [address] [place] [address] 394 [place], [place] [address] Urology 07/15/19 Bianca Rubalcava, RN Specialty Editor At Large Urology 07/15/19 Wm Ryan MD [address] [place] [address] Resident Student in organized health care education/training program 02/01/21 Tatyana Dwyer MD [address] [place] [address] Assigned PCP 02/05/21 [place] [address] Assigned Endocrinology Provider 11/18/21 Ana Fink MD [address] [place] [address] Fellow Gastroenterology 10/16/22 documented as of this encounter
--- OUTSIDE RECORDS SUMMARY | 2024-07-16 19:59 | XMS_ITS | Encounter Summary ---
Author Organization [place] Address [address] [place] [address] Care Team Providers Care Oil And Gas Recruiter Name Role Phone Tatyana Dwyer MD Primary Care P rolorettader Tatyana Dwyer MD Unavailable Annalee Toussaint-C Unavailable Cr Fung MD Unavailable Bianca Rubalcava RN Unavailable [phone] Keegan Montemayor MD Unavailable Un available Joselin Andrade PA-C Unavailable Steven Tatum MD Unavailable Jim Mark MD Unavailable [phone] Jaime Wood MD Unavailable [phone] Annalee Toussaint-C Unavailable [phone] Honey Jackson APRN, CNP Unavailable + [phone] Wm Ryan MD Unavailable Tatyana Dwyer MD Unavailable Amalia Agosto GC Unavailable [phone] Jaime Wood MD Unavailable [phone] Christen Gallardo MD Unavailable [phone] Ana Fink MD Unavailable Encounter Details Date Type Department Care Team (Late st Contact Info) Description 06/30/2019 MyC Medical Advice [facility] Heart [facility] [address] [facility] 140 [place] [phone] Keegan Montemayor MD Social History Tobacco Use [...] PM CDT 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 He can just stop metoprolol 1 day and start Bystolic the next day. Keegan Montemayor MD Cardiology - [facility] Heart Pager: [phone] Text Page June 30, 2019 ING ATTENDANT documented in this encounter Plan of Treatment Upcoming Encounters Date Type Department Care Team (Late st Contact Info) Description 08/18/2024 2:00 PM ROLLING ATTENDANT Virtual Visit [facility] Specialty [address] [place] [address] Christen Gallardo [place] [address] 11/20/2024 9:30 AM CDT Office Visit [facility] [address] [place] [phone] Tatyana Dwyer MD [address] [place], [place] [address] documented as of this encounter Visit Diagnoses Not on filedocumented in this encounter Additional Health Concerns Infection Onset Date Last Indicated Resolved Time Rule Out COVID-10/25/2021 10/25/2021 10/26/2021 12:43 PM CDT COVID-19 10/25/2021 10/25/2021 11/15/2021 11:3 9 PM CDT documented as of this encounter Care Teams Oil And Gas Recruiter Relationship Specialty Start Date End Date Tatyana Dwyer MD [address] [place] [address] PCP - General Internal Medicine 06/01/19 Tatyana Dwyer MD [address] [place] [address] Assigned PCP 05/31/19 10/15/20 Annalee Toussaint, PAMarianaC [address] [address] Physician Early Learning Teacher Physician Early Learning Teacher - Medical 07/15/19 Cr Fung MD [address] [place] [address] 323745 Urology 07/15/19 Bianca Rubalcava, RODNEY Specialty Maintenance Trainer Urology 07/15/19 Keegan Montemayor MD Assigned Heart and Vascular Provider 04/08/20 12/27/20 Joselin Andrade PA-C [address] [place] [address] Assigned Pediatric Specialist Provider 04/08/20 07/17/20 [place] [address] [place] [address] Assigned Surgical Provider 04/08/20 07/22/21 Jim Mark MD [address] [place] [address] Assigned Musculoskeletal Provider 04/08/20 02/11/21 Jaime Wood MD [address] [place] [address] Assigned Sleep Provider 04/08/2004/08 Annalee Toussaint PA-C [address] [place] [address] Assigned OBGYN Provider 08/31/20 1 Honey Jackson APRN [facility] [address] [place] [address] Assigned PCP 10/16/20 02/04/21 Wm Ryan MD [address] [place] [address] Resident Student in organized health care education/training program 02/01/21 Tatyana Dwyer MD [address] [place] [address] Assigned PCP 02/05/21 Amalia Agosto GC [address] [place] [address] Assigned OBGYN Provider 05/07/21 07/15/21 Jaime Wood MD 6363 [facility] 103 [place] [address] Assigned Sleep Provider 07/09/21 [place] [address] Assigned Endocrinology Provider 11/18/21 Ana Fink MD [address] [place] [address] Fellow Gastroenterology 10/16/22 documented as of this encounter
--- OUTSIDE RECORDS SUMMARY | 2024-07-16 19:59 | XMS_ITS | Encounter Summary ---
Author Organization [place] Address [address] [place] [address] Care Team Providers Care Drosser Name Role Phone Tatyana Dwyer MD Primary Care P rovider Annalee ToussaintC Unavailable [phone] Cr Fung MD Unavailable [phone] Bianca Rubalcava RN Unavailable [phone] Wm Ryan MD Unavailable [phone] Tatyana Dwyer MD Unavailable Christen Gallardo MD Unavailable [phone] Ana Fink MD Unavailable Encounter Details Date Type Department Care Team (Late st Contact Info) Description 06/18/2023 [facility] [place] Advice [facility] [address] [address] Jailyn Crawford Social History Tobacco [...] PM CDT 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 Gender Identity Male 12/19/2020 9:52 PM CDT Sexual Orientation Straight 12/19/2020 9: 52 PM CDT documented as of this encounter Plan of Treatment Upcoming Encounters Date Type Department Care Team (Late st Contact Info) Description 08/18/2024 2:00 PM SOLAR FIELD INSTALLATION CREW MEMBER Virtual Visit [facility] [address] [place] [address] [address] [place] [phone] Christen Gallardo MD [place], [place] [id number] 11/20/2024 9:30 AM CDT Office Visit [facility] [address] [facility] [address] [place] [phone] Tatyana Dwyer MD [address] [place], [place] [address] documented as of this encounter Visit Diagnoses Not on filedocumented in this encounter Care Teams Drosser Relationship Specialty Start Date End Date Tatyana Dwyer MD [address] [place], [place] [address] PCP - General Internal Medicine 06/01/19 Annalee Toussaint PA-C 6363 [facility] 500 [place] [address] Physician Statistician Applied Physician Statistician Applied - Medical 07/15/19 Cr Fung MD 420 [facility] 394 [place] [address] Urology 07/15/19 Bianca Rubalcava, RN Specialty Digital Asset Specialist Urology 07/15/19 Wm Ryan MD [address] [place] [address]27[address] Resident Student in [facility] health care education/training program 02/01/21 Tatyana Dwyer MD [address] [place], [place] [address] Assigned PCP 02/05/21 Christen Gallardo MD [facility] [place], [place] [address] Assigned Endocrinology Provider 11/18/21 Ana Fink MD [address] [place] [address] 312[address] Fellow Gastroenterology 10/16/22 documented as of this encounter
--- OUTSIDE RECORDS SUMMARY | 2024-07-16 20:00 | XMS_ITS | Encounter Summary ---
Author Organization [place] Address [address] [place] [address] Care Team Providers Care Internet Assessor Name Role Phone Tatyana Dwyer MD Primary Care P rolorettader Tatyana Dwyer MD Unavailable Annalee Toussaint-C Unavailable Cr Fung MD Unavailable Bianca Rubalcava RN Unavailable [phone] Keegan Montemayor MD Unavailable Un available Joselin Andrade PA-C Unavailable [phone] Steven Tatum MD Unavailable Jim Mark MD Unavailable [phone] Jaime Wood MD Unavailable [phone] Annalee Toussaint-C Unavailable [phone] Honey Jackson APRN, CNP Unavailable + [phone] Wm Ryan MD Unavailable Tatyana Dwyer MD Unavailable Amalia Agosto GC Unavailable [phone] aJime Wood MD Unavailable [phone] Christen Gallardo MD Unavailable [phone] Ana Fink MD Unavailable Reason for Visit * Reason Onset Date Comments Appointment 10/21/2019 Pt was having Mo hs surgery back in August That was canceled he wanted call back to discuss rescheduling Encounter Details Date Type Department Care Team (Late st Contact Info) Description 10/21/2019 Telephone [facility] Dermatology [address] [facility] [address] [place] [address] Frederick Hanna MD [address] [place] [address] Appointment (Pt was having Mohs surgery [...] PM CDT 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 Tatum. The number [phone] was left on voicemail for the patient to return the call and schedule the procedure. Ciara Balderas Periop Derm/Surg Weigh Tank Operator [phone] * Telephone Encounter - Isabela Blake LPN [...] Carolyn Cheung - 10/21/2019 2:33 PM CDT [facility] Phone Message May a detailed message be [...] st Contact Info) Description 08/18/2024 2:00 PM WINDOWS 7 DEPLOYMENT LEAD Virtual Visit [address] [place] [phone] [place] [address] 11/20/2024 9:30 AM CDT Office Visit [address] [place] [address] [place] [phone] Tatyana Dwyer MD [facility] [place] [address] documented as of this encounter Visit Diagnoses Not on filedocumented in this encounter Additional Health Concerns Infection Onset Date Last Indicated Resolved Time Rule Out COVID-19 10/25/2021 10/25/2021 10/26/2021 12:43 PM CDT COVID-19 10/25/2021 10/25/2021 11/15/2021 11:3 9 PM CDT documented as of this encounter Care Teams Internet Assessor Relationship Specialty Start Date End Date Tatyana Dwyer MD [address] [place], [place] 237987 PCP - General Internal Medicine 06/01/19 Tatyana Dwyer MD [address] [place] [address] Assigned PCP 05/31/19 10/15/20 Annalee Toussaint PA-C [address] 498575 Physician Telecom Coordinator Physician Telecom Coordinator - Medical 07/15/19 Cr Fung MD [address] [facility] 394 [place] [address] Urology 07/15/19 Bianca Rubalcava, RN Specialty Mission Worker Urology 07/15/19 Keegan Montemayor MD Assigned Heart and Vascular Provider 04/08/20 12/27/20 Joselin Andrade PA-C [address] [place] [address] Assigned Pediatric Specialist Provider 04/08/20 07/17/20 [place] [address] [place] [address] Assigned Surgical Provider 04/08/20 07/22/21 Jim Mark [place] [address] [place] [address] [id number] Assigned Musculoskeletal Provider 04/08/20 02/11/21 Jaime Wood MD [address] [place], [place] 729745 Assigned Sleep Provider 04/08/2004/08 Annalee Toussaint PA-C [address] [place], [place] 6[address]85 Assigned OBGYN Provider 08/31/20 1 Honey Jackson APRN [facility] [address] [place], [place] 984137 Assigned PCP 10/16/20 02/04/21 Wm Ryan MD [address] [place], [place] 917895 Resident Student in organized health care education/training program 02/01/21 Tatyana Dwyer MD [address] [place], [place] 552447 Assigned PCP 02/05/21 Amalia Agosto GC 2450 [place], [place] 695124 Assigned OBGYN Provider 05/07/21 07/15/21 Jaime Wood MD [address] [address] Assigned Sleep Provider 07/09/21 Christen Gallardo [place] [address] Assigned Endocrinology Provider 11/18/21 Ana Fink MD [address] [place] [address] Fellow Gastroenterology 10/16/22 documented as of this encounter
--- OUTSIDE RECORDS SUMMARY | 2024-07-16 20:00 | XMS_ITS | Encounter Summary ---
Author Organization [place] Address [address] [place] [address] Care Team Providers Care Traffic Survey Technician Name Role Phone Tatyana Dwyer MD Primary Care P rovider Annalee Toussaint PA-C Unavailable [phone] Cr Fung MD Unavailable [phone] Bianca Rubalcava RN Unavailable [phone] Wm Ryan MD Unavailable Tatyana Dwyer MD Unavailable Christen Gallardo MD Unavailable [phone] Ana Fink MD Unavailable Encounter Details [...] re latives? 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 Gender Identity Male 12/19/2020 9:52 PM CDT Sexual Orientation Straight 12/19/2020 9: 52 PM CDT documented as of this encounter Plan of Treatment Upcoming Encounters Date Type Department Care Team (Late st Contact Info) Description 08/18/2024 2:00 PM CLIP LOADING MACHINE FEEDER Virtual Visit [facility] [address] [place] [address] [address] [place] [phone] [place] [address] 11/20/2024 9:30 AM CDT Office Visit [facility] [address] [place] [phone] Tatyana Dwyer MD [address] [place], [place] 699[address] documented as of this encounter Visit Diagnoses Not on filedocumented in this encounter Care Teams Traffic Survey Technician Relationship Specialty Start Date End Date Tatyana Dwyer MD [address] [place], [place] [phone] PCP - General Internal Medicine 06/01/19 Annalee Toussaint PA-C 6[address] [facility] 500 [place] [address] Physician Emergency Medicine Physician Physician Emergency Medicine Physician - Medical 07/15/19 Cr Fung MD [address] [place] [address] 394 [place] [address] Urology 07/15/19 Bianca Rubalcava, RN Specialty Stem Setter Urology 07/15/19 Wm Ryan MD [address] [place] [address] Resident Student in [facility] health care education/training program 02/01/21 Tatyana Dwyer MD [address] [place] [address] Assigned PCP 02/05/21 Christen Gallardo MD [facility] [place] [address] Assigned Endocrinology Provider 11/18/21 Ana Fink MD [address] [place] [address] Fellow Gastroenterology 10/16/22 documented as of this encounter
--- OUTSIDE RECORDS SUMMARY | 2024-07-16 20:00 | XMS_ITS | Encounter Summary ---
Author Organization [place] Address [facility] [place] [address] Care Team Providers Care Chief Engineer Name Role Phone Tatyana Dwyer MD Primary Care P rovider Annalee Toussaint PA-C Unavailable Cr Fung MD Unavailable Bianca Rubalcava RN Unavailable [phone] Wm Ryan MD Unavailable Tatyana Dwyer MD Unavailable Christen Gallardo MD Unavailable [phone] Ana Fink MD Unavailable Reason for Visit * Reason Comments Medication Refill Encounter Details Date Type Department Care Team (Late st Contact Info) Description 06/13/[address] [place] [address] Tatyana Dwyer MD [address] [place] [address] Medication Refill Social History Tobacco [...] re latives? 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 Gender Identity Male 12/19/2020 9:52 PM CDT Sexual Orientation Straight 12/19/2020 9: 52 PM CDT documented as of this encounter Plan of Treatment Upcoming Encounters Date Type Department Care Team (Late st Contact Info) Description 08/18/2024 2:00 PM EXECUTIVE RECEPTIONIST Virtual Visit [address] [phone] [place] [address] 11/20/2024 9:30 AM CDT Office Visit [address] [place] [address] [place] [address] Tatyana Dwyer MD [facility] E [place], [place] 779947 documented as of this encounter Visit Diagnoses Diagnosis Tachycardia Tachycardia, unspecified HTN, goal below 140/90 Unspecified essential hypertension documented in this encounter Care Teams Chief Engineer Relationship Specialty Start Date End Date Tatyana Dwyer MD [address] [place] [address] PCP - General Internal Medicine 06/01/19 Annalee Toussaint PA-C [address] [place] [address] Physician Biology Specialist Physician Biology Specialist - Medical 07/15/19 Cr Fung MD [address] [place] [address] Urology 07/15/19 Bianca Rubalcava, RN Specialty Safety Instructor Urology 07/15/19 Wm Ryan MD [address] [place] [address] 796075 Resident Student in organized health care education/training program 02/01/21 Tatyana Dwyer MD [address] [place] [address] Assigned PCP 02/05/21 Christen Gallardo [place] [address] Assigned Endocrinology Provider 11/18/21 Ana Fink MD [address] [place] [address] 759475 Fellow Gastroenterology 10/16/22 documented as of this encounter
--- OUTSIDE RECORDS SUMMARY | 2024-07-16 20:00 | XMS_ITS | Encounter Summary ---
Author Organization [facility] Address [address] [place] [address] Care Team Providers Care Office Messenger Name Role Phone Tatyana Dwyer MD Primary Care P rolorettader Tatyana Dwyer MD Unavailable Annalee Toussaint-C Unavailable Cr Fung MD Unavailable Bianca Rubalcava RN Unavailable [phone] Keegan Montemayor MD Unavailable Un available Joselin Andrade PA-C Unavailable Steven Tatum MD Unavailable Jim Mark MD Unavailable [phone] Jaime Wood MD Unavailable [phone] Annalee Toussaint-C Unavailable [phone] Honey Jackson APRN, CNP Unavailable + [phone] Wm Ryan MD Unavailable Tatyana Dwyer MD Unavailable Amalia Agosto GC Unavailable [phone] Jaime Wood MD Unavailable [phone] Christen Gallardo MD Unavailable [phone] Ana Fink MD Unavailable Encounter Details Date Type Department Care Team (Late st Contact Info) Description 01/26/2020 MyC Medical Advice [facility] Dermatologic Surgery [address] [facility] [address] 3rd [place] [address] Mohsen Downs MD [address] [facility] Romario kennedy [facility] [place], [place] [address] Social History Tobacco Use Types Packs/Day Years [...] PM CDT Legal Sex Male 3:08 AM COUNTER SUPERVISOR Gender Identity Male 12/19/2020 9:52 PM CDT [...] st Contact Info) Description 08/18/2024 2:00 PM COUNTER SUPERVISOR Virtual Visit [facility] Specialty [address] [address] Christen Gallardo MD [facility] [place] [address] 11/20/2024 9:30 AM CDT Office Visit [facility] [address] [place] [phone] Tatyana Dwyer MD [address] [place], [place] [address] documented as of this encounter Visit Diagnoses Not on filedocumented in this encounter Additional Health Concerns Infection Onset Date Last Indicated Resolved Time Rule Out COVID-19 10/25/2021 10/25/2021 10/26/2021 12:43 PM CDT COVID-19 10/25/2021 10/25/2021 11/15/2021 11:3 9 PM CDT documented as of this encounter Care Teams Office Messenger Relationship Specialty Start Date End Date Tatyana Dwyer MD [address] [place], [place] 602657 PCP - General Internal Medicine 06/01/19 Tatyana Dwyer MD [address] [place], [place] 486007 Assigned PCP 05/31/19 10/15/20 Annalee Toussaint PA-C [address] 042445 Physician Skin Pass Operator Physician Skin Pass Operator - Medical 07/15/19 Cr Fung MD [address] [place] [address] 394 [place], [place] 158245 Urology 07/15/19 Bianca Rubalcava, RODNEY Specialty Refinery Operator Crude Unit Urology 07/15/19 Keegan Montemayor MD Assigned Heart and Vascular Provider 04/08/20 12/27/20 Joselin Andrade PA-C [address] [place] [address] Assigned Pediatric Specialist Provider 04/08/20 07/17/20 [place] [address] [place] [address] Assigned Surgical Provider 04/08/20 07/22/21 Jim Mark MD [address] [place] [address] 679555 Assigned Musculoskeletal Provider 04/08/20 02/11/21 Jaime Wood MD [address] [place] [address] Assigned Sleep Provider 04/08/2004/08 Annalee Toussaint PA-C [address] [place], [place] [address] Assigned OBGYN Provider 08/31/20 1 Honey Jackson APRN CORDUROY CUTTER OPERATOR [address] [place] [address] Assigned PCP 10/16/20 02/04/21 Wm Ryan MD [address] [place] [address] Resident Student in organized health care education/training program 02/01/21 Tatyana Dwyer MD [address] [place] [address] Assigned PCP 02/05/21 Amalia Agosto GC [address]50 [place] [address] Assigned OBGYN Provider 05/07/21 07/15/21 Jaime Wood MD [address] [address] Assigned Sleep Provider 07/09/21 Christen Gallardo MD [facility] [place] [address] Assigned Endocrinology Provider 11/18/21 Ana Fink MD [address] [place] [address] 616265 Fellow Gastroenterology 10/16/22 documented as of this encounter
--- OUTSIDE RECORDS SUMMARY | 2024-07-16 20:00 | XMS_ITS | Encounter Summary ---
Author Organization [place] Address [address] [place] [address] Care Team Providers Care Bobbin Painter Name Role Phone Tatyana Dwyer MD Primary Care P rolorettader Tatyana Dwyer MD Unavailable Annalee Toussaint-C Unavailable Cr Fung MD Unavailable [phone] Bianca Rubalcava RN Unavailable [phone] Keegan Montemayor MD Unavailable Un available Joselin Andrade PA-C Unavailable [phone] Steven Tatum MD Unavailable Jim Mark MD Unavailable [phone] Jaime Wood MD Unavailable [phone] Annalee Toussaint-C Unavailable [phone] Honey Jackson APRN, CNP Unavailable + [phone] Wm Ryan MD Unavailable Tatyana Dwyer MD Unavailable Amalia Agosto GC Unavailable [phone] Jaime Wood MD Unavailable [phone] Christen Gallardo MD Unavailable [phone] Ana Fink MD Unavailable Encounter Details Date Type Department Care Team (Late st Contact Info) Description 10/02/2019 MyC Medical Advice [place] [id number] [place] [phone] LuanRachel candelario Social History Tobacco Use Types [...] PM CDT Legal Sex Male 3:08 AM AIRLINE FLIGHT ATTENDANT Gender Identity Male 12/19/2020 9:52 PM CDT Sexual Orientation Straight 12/19/2020 9: 52 PM CDT documented as of this encounter Plan of Treatment Upcoming Encounters Date Type Department Care Team (Late st Contact Info) Description 08/18/2024 2:00 PM AIRLINE FLIGHT ATTENDANT Virtual Visit [address] [place] [phone] [place] [address] 11/20/2024 9:30 AM CDT Office Visit [place] [address] [place] [address] Tatyana Dwyer MD [address] [place] [address] documented as of this encounter Visit Diagnoses Not on filedocumented in this encounter Additional Health Concerns Infection Onset Date Last Indicated Resolved Time Rule Out COVID-19 10/25/2021 10/25/2021 10/26/2021 12:43 PM CDT COVID-19 10/25/2021 10/25/2021 11/15/2021 11:3 9 PM CDT documented as of this encounter Care Teams Bobbin Painter Relationship Specialty Start Date End Date Tatyana Dwyer MD [address] [place] [address] PCP - General Internal Medicine 06/01/19 Tatyana Dwyer MD [address] [place] [address] Assigned PCP 05/31/19 10/15/20 Annalee Toussaint PA-C [address] 826[address] Physician Car Rental Agency Manager Physician Car Rental Agency Manager - Medical 07/15/19 Cr Fung MD 420 [facility] 394 [place], [place] 6[address] Urology 07/15/19 Bianca Rubalcava, RN Specialty Farm Equipment Engine Mechanic Urology 07/15/19 Keegan Montemayor MD Assigned Heart and Vascular Provider 04/08/20 12/27/20 Joselin Andrade PA-C [address] [place] [address] Assigned Pediatric Specialist Provider 04/08/20 07/17/20 [place] [address] [facility] [place] [address] Assigned Surgical Provider 04/08/20 07/22/21 Jim Mark MD [address] [place] [address] Assigned Musculoskeletal Provider 04/08/20 02/11/21 Jaime Wood MD [address] [place] [address] Assigned Sleep Provider 04/08/2004/08 Annalee Toussaint PA-C [address] [place], [place] [address] Assigned OBGYN Provider 08/31/20 1 Honey Jackson APRN [facility] [address] [place], [place] 156967 Assigned PCP 10/16/20 02/04/21 Wm Ryan MD [address] [place], [place] [address] Resident Student in organized health care education/training program 02/01/21 Tatyana Dwyer MD [address] [place], [place] [address]37 Assigned PCP 02/05/21 Amalia Agosto GC 2450 [place] [address] Assigned OBGYN Provider 05/07/21 07/15/21 Jaime Wood MD [address] [place] [address] Assigned Sleep Provider 07/09/21 [place] [address] Assigned Endocrinology Provider 11/18/21 Ana Fink MD [address] [place] [address] Fellow Gastroenterology 10/16/22 documented as of this encounter
--- OUTSIDE RECORDS SUMMARY | 2024-07-16 20:00 | XMS_ITS | Encounter Summary ---
Author Organization [place] Address [facility] [place] [address] Care Team Providers Care Black Puller Name Role Phone Tatyana Dwyer MD Primary Care P rolorettader Annalee Toussaint-C Unavailable [phone] Cr Fung MD Unavailable Bianca Rubalcava RN Unavailable [phone] Wm Ryan MD Unavailable Tatyana Dwyer MD Unavailable Christen Gallardo MD Unavailable [phone] Ana Fink MD Unavailable Reason for Visit * Reason Onset Date Comments Prior Auth - Medication 07/01/2024 Wegovy 2 .4- [place] APPROVED Encounter Details Date Type Department Care Team (Late st Contact Info) Description 07/01/[address] [address] [place] [address] Prior Auth - Medication (Wegovy [...] re latives? Twice a week 11/16/2023 Attends [employer] Not on file 11/15 Active Member [...] in an abandoned building, in an overnight long-term, or couch-surfing.) Yes 11/16/2023 Are you worried [...] PM CDT Legal Sex Male 3:08 AM EXTRUSION OPERATOR Gender Identity Male 12/19/2020 9:52 PM [...] Dose/Quantity: 3 Reference #: Insurance Company: [employer] ([employer]) - Expected CoPay: $ CoPay Card Available: Financial Assistance Needed: Which Pharmacy is filling the prescription: [id number] [place] [address] [address] [facility] [address] Pharmacy Notified: YES Patient Notified: YES Instructed pharmacy to notify patient once order is ready. USION OPERATOR * Telephone Encounter - Kelly Marcial - 07/03/2024 3:56 PM CST Images from the original note were not included. Central Prior Authorization Team - PA Initiation Medication: WEGOVY 2.4 MG/0.75ML SC SOAJ Insurance Company: [employer] ([employer]) - Pharmacy Filling the Rx: [facility] #[id number] [place], [place] - [address] [place] [address] [address] [facility] [address] Filling Pharmacy Filling Pharmacy Fax: Start Date: 07/03/2024 USION OPERATOR * Telephone Encounter - Nita Esteban RN - 07/01/2024 12:52 PM CST Prior Authorization Retail Medication Request Medication/Dose: Wegovy Diagnosis and ICD code (if different than what is on RX): New/renewal/insurance change PA/secondary ins. PA: Previously Tried and Failed: Rationale: Insurance Primary: [employer] Secondary (if applicable): Insurance ID: Pharmacy Information (if different than what is on RX) Name: Phone: Fax: Clinic Information Preferred routing pool for dept communication: p cs endocrine USION OPERATOR documented in this encounter Plan of Treatment Upcoming Encounters Date Type Department Care Team (Late st Contact Info) Description 08/18/2024 2:00 PM EXTRUSION OPERATOR Virtual Visit [facility] Special[facility] [place] [address] [place] [address] Christen Gallardo MD [facility] [place], [place] [address] 11/20/2024 9:30 AM CDT Office Visit [facility] [address] [place] [phone] Tatyana Dwyer MD [address] [place] [address] documented as of this encounter Visit Diagnoses Not on filedocumented in this encounter Care Teams Black Puller Relationship Specialty Start Date End Date Tatyana Dwyer MD [address] [place], [place] [address] PCP - General Internal Medicine 06/01/19 Annalee Toussaint PA-C [address] 8[address] Physician Dairy Nutrition Consultant Physician Dairy Nutrition Consultant - Medical 07/15/19 Cr Fung MD [address] [address] Urology 07/15/19 Bianca Rubalcava, RN Specialty Nursery Attendant Urology 07/15/19 Wm Ryan MD [address] [place] [address] 529695 Resident Student in organized health care education/training program 02/01/21 Tatyana Dwyer MD [address] [place] [address] Assigned PCP 02/05/21 [place] [address] Assigned Endocrinology Provider 11/18/21 Ana Fink MD [address] [place] [address] Fellow Gastroenterology 10/16/22 documented as of this encounter
--- OUTSIDE RECORDS SUMMARY | 2024-07-16 20:00 | XMS_ITS | Encounter Summary ---
Author Organization [place] Address [address] [place] [address]. [place] [address] Care Team Providers Care Newspaper Delivery Driver Name Role Phone Tatyana Dwyer MD Primary Care P rolorettader Annalee ToussaintC Unavailable [phone] Cr Fung MD Unavailable Bianca Rubalcava RN Unavailable [phone] Wm Ryan MD Unavailable Tatyana Dwyer MD Unavailable Christen Gallardo MD Unavailable [phone] Ana Fink MD Unavailable Encounter Details Date Type Department Care Team (Late st Contact Info) Description 01/07/[address] [facility] [address] [place] [address] Shanice Lo Social History Tobacco [...] re latives? Twice a week 11/16/2023 Attends Denominational Services Not on file 11/15 Active Member [...] Answer Date Recorded PHQ-2 Score 0 11/21/2023 [facility] [place] of Occupat ional Health - Occupational Stress [...] PM CDT Legal Sex Male 3:08 AM REAM CUTTER Gender Identity Male 12/19/2020 9:52 PM CDT Sexual Orientation Straight 12/19/2020 9: 52 PM CDT documented as of this encounter Plan of Treatment Upcoming Encounters Date Type Department Care Team (Late st Contact Info) Description 08/18/2024 2:00 PM REAM CUTTER Virtual Visit [address] [place] [phone] [place] [address] 11/20/2024 9:30 AM CDT Office Visit [place] [address] [place] [phone] Tatyana Dwyer MD [address] [place], [place] [address] documented as of this encounter Visit Diagnoses Not on filedocumented in this encounter Care Teams Newspaper Delivery Driver Relationship Specialty Start Date End Date Tatyana Dwyer MD [address] [facility] [place] [address] PCP - General Internal Medicine 06/01/19 Annalee Toussaint PA-C [address] [address] Physician Nail Welter Physician Nail Welter - Medical 07/15/19 Cr Fung MD [address] [place] [address] Urology 07/15/19 Bianca Rubalcava, RN Specialty Wet Process Head Miller Urology 07/15/19 Wm Ryan MD [address] [place] [address] Resident Student in organized health care education/training program 02/01/21 Tatyana Dwyer MD [address] [place] [address] Assigned PCP 02/05/21 Christen Gallardo MD [facility] [place] [address] Assigned Endocrinology Provider 11/18/21 Ana Fink MD [address] [place] [address] Fellow Gastroenterology 10/16/22 documented as of this encounter
--- OUTSIDE RECORDS SUMMARY | 2024-07-16 20:00 | XMS_ITS | Encounter Summary ---
Author Organization [place] Address [address] [place] [address]. [place] [address] Care Team Providers Care Broke Handler Name Role Phone Tatyana Dwyer MD Primary Care P rovider Annalee Toussaint PA-C Unavailable [phone] Cr Fung MD Unavailable Bianca Rubalcava RN Unavailable [phone] Wm Ryan MD Unavailable [phone] Tatyana Dwyer MD Unavailable Christen Gallardo MD Unavailable [phone] Ana Fink MD Unavailable Encounter Details Date Type Department Care Team (Late st Contact Info) Description 06/23/2024 9:00 AM [facility] [address] [place] [address] Hypogonadism in male; MINA (nonalcoholic [...] re latives? Twice a week 11/16/2023 Attends Anabaptist Services Not on file 11/15 Active Member [...] Answer Date Recorded PHQ-2 Score 0 11/21/2023 [facility] of Occupat ional Health - Occupational Stress [...] PM CDT Legal Sex Male 3:08 AM MOLDING ROOM SUPERVISOR Gender Identity Male 12/19/2020 9:52 PM CDT Sexual Orientation Straight 12/19/2020 9: 52 PM CDT documented as of this encounter Plan of Treatment Upcoming Encounters Date Type Department Care Team (Late st Contact Info) Description 08/18/2024 2:00 PM MOLDING ROOM SUPERVISOR Virtual Visit [address] [phone] [place] [address] 11/20/2024 9:30 AM CDT Office Visit [address] [place] [address] [place] [phone] Tatyana Dwyer MD [address] [place], [place] [address] documented as of this encounter Procedures Procedure Name Priority Date/Time Associated Diagnosis Comments TESTOSTERONE FREE AND TOTAL Routine 06/23/2024 9:02 AM MOLDING ROOM SUPERVISOR Hypogonadism in male SEX HORMONE BINDING GLOBULIN Routine 06/23/2024 9:02 AM MOLDING ROOM SUPERVISOR Hypogonadism in male TESTOSTERONE FREE AND TOTAL Routine 06/23/2024 9:02 AM MOLDING ROOM SUPERVISOR Hypogonadism in male HEPATIC FUNCTION PANEL Routine 06/23/2024 9:02 AM MOLDING ROOM SUPERVISOR MINA (nonalcoholic steatohepatitis) HEMOGLOBIN AND HEMATOCRIT Routine 06/23/2024 9:02 AM MOLDING ROOM SUPERVISOR Hypogonadism in male documented in this encounter Results * Testosterone Free and Total (06/23/2024 9:02 AM MOLDING ROOM SUPERVISOR) Free Testosterone Calculated 16.15 ng/dL 06/25/2024 10:05 AM MOLDING ROOM SUPERVISOR [facility] Comment: Male Aneesh Ranges: Aneesh Stage I: Less than or equal to 0.37 ng/dL Aneesh Stage II: 0.03-2.1 ng/dL Aneesh Stage III: 0.10-9.8 ng/dL Aneesh Stage IV: 3.5-16.9 ng/dL Aneesh Stage V: 4.1-23.9 ng/dL Testosterone Total 668 240 - 950 ng/dL 06/25/2024 10:05 AM MOLDING ROOM SUPERVISOR [facility] Blood BLOOD SPECIMEN / Unknown Venipuncture / Unknown 06/23/2024 9:02 AM MOLDING ROOM SUPERVISOR 06/23/2024 9:02 AM MOLDING ROOM SUPERVISOR Narrative [facility] - 06/25/2024 10:05 AM MOLDING ROOM SUPERVISOR This test was developed and its performance characteristics determined by the [facility], Special Chemistry Laboratory. It has not been cleared or approved by the FDA. The laboratory is regulated under CLIA as qualified to perform high-complexity testing. This test is used for clinical purposes. It should not be regarded as investigational or for research. us Christen Gallardo MD LAB - BLOOD ORDERABLES Final Re sult [facility] 500 [facility], Room [address] [place] [phone] * Sex Hormone Binding Globulin (06/23/2024 9:02 AM MOLDING ROOM SUPERVISOR) Sex Hormone Binding Globulin 28 11 - 80 nmol/L 06/23/2024 4:30 PM MOLDING ROOM SUPERVISOR [facility] Blood BLOOD SPECIMEN / Unknown Venipuncture / Unknown 06/23/2024 9:02 AM MOLDING ROOM SUPERVISOR 06/23/2024 9:02 AM MOLDING ROOM SUPERVISOR Christen Gallardo MD LAB - BLOOD ORDERABLES Final Re sult [facility]ATORY [facility] [place] [facility] 500 [facility], Room [address] [phone] * Hepatic panel (Albumin, ALT, AST, Bili, Alk Phos, TP) (06/23/2024 9:02 AM MOLDING ROOM SUPERVISOR) [facility] Protein Total 7.2 6.4 - 8.3 g/dL 06/23/2024 4:27 PM MOLDING ROOM SUPERVISOR [facility] Albumin 4.3 3.5 - 5.2 g/dL 06/23/2024 4:27 PM MOLDING ROOM SUPERVISOR [facility] Bilirubin Total 0.5 <=1.2 mg/dL 06/23/2024 4:27 PM MOLDING ROOM SUPERVISOR [facility] Alkaline Phosphatase 50 40 - 150 U/L 06/23/2024 4:27 PM MOLDING ROOM SUPERVISOR [facility] AST 31 0 - 45 U/L 06/23/2024 4:27 PM MOLDING ROOM SUPERVISOR [facility] ALT 26 0 - 70 U/L 06/23/2024 4:27 PM MOLDING ROOM SUPERVISOR [facility] Bilirubin Direct <0.20 0.00 - 0.30 mg/dL 06/23/2024 4:27 PM MOLDING ROOM SUPERVISOR [facility] Blood BLOOD SPECIMEN / Unknown Venipuncture / Unknown 06/23/2024 9:02 AM MOLDING ROOM SUPERVISOR 06/23/2024 9:02 AM MOLDING ROOM SUPERVISOR us Christen Gallardo MD LAB - BLOOD ORDERABLES Final Re sult [facility] [place] [facility] 500 [facility], Room [address] [place] [address] * Hemoglobin and hematocrit (06/23/2024 9:02 AM MOLDING ROOM SUPERVISOR) Hemoglobin 16.3 13.3 - 17.7 g/dL 06/23/2024 9:04 AM MOLDING ROOM SUPERVISOR [facility] Hematocrit 48.4 40.0 - 53.0 % 06/23/2024 9:04 AM MOLDING ROOM SUPERVISOR [facility] Blood BLOOD SPECIMEN / Unknown Venipuncture / Unknown 06/23/2024 9:02 AM MOLDING ROOM SUPERVISOR 06/23/2024 9:02 AM MOLDING ROOM SUPERVISOR us Christen Gallardo MD LAB - BLOOD ORDERABLES Final Re sult LABORATORY [facility] [address] [facility] (no room number, 1st floor of clinic) [place] [address], [facility] documented in this encounter Visit Diagnoses Diagnosis Hypogonadism in male MINA (nonalcoholic steatohepatitis) Other chronic nonalcoholic liver disease documented in this encounter Care Teams Broke Handler Relationship Specialty Start Date End Date Tatyana Dwyer MD [address] [place], [place] [phone] PCP - General Internal Medicine 06/01/19 Annalee Toussaint, DUSTYC [address]363 [facility] 500 [place], [place] [address] Physician Green Prize Packer Physician Green Prize Packer - Medical 07/15/19 Cr Fung MD [address] [address] Urology 07/15/19 Bianca Rubalcava, RODNEY Specialty Assistant Foreman Urology 07/15/19 Wm Ryan MD [address] [place], [place] [address] Resident Student in organized health care education/training program 02/01/21 Tatyana Dwyer MD [address] [place] [address] Assigned PCP 02/05/21 [place] [address] Assigned Endocrinology Provider 11/18/21 Ana Fink MD [address] [place] [address] Fellow Gastroenterology 10/16/22 documented as of this encounter
--- OUTSIDE RECORDS SUMMARY | 2024-07-16 20:00 | XMS_ITS | Encounter Summary ---
Author Organization [place] Address [address] [place] [address] Care Team Providers Care Erp Manager Name Role Phone Tatyana Dwyer MD Primary Care P rovider Annalee Toussaint PA-C Unavailable [phone] Cr Fung MD Unavailable Bianca Rubalcava RN Unavailable [phone] Wm Ryan MD Unavailable Tatyana Dwyer MD Unavailable Christen Gallardo MD Unavailable [phone] Ana Fink MD Unavailable Encounter Details [...] re latives? Twice a week 11/16/2023 Attends Spiritism Services Not on file 11/15 Active Member [...] Answer Date Recorded PHQ-2 Score 0 11/21/2023 [facility] of Occupat ional Health - Occupational Stress [...] PM CDT Legal Sex Male 3:08 AM SEEDLING SORTER Gender Identity Male 12/19/2020 9:52 PM CDT Sexual Orientation Straight 12/19/2020 9: 52 PM CDT documented as of this encounter Plan of Treatment Upcoming Encounters Date Type Department Care Team (Late st Contact Info) Description 08/18/2024 2:00 PM SEEDLING SORTER Virtual Visit [facility] [address] [place] [address] [address] [place] [phone] [place] [address] 11/20/2024 9:30 AM CDT Office Visit [facility] [address] [place] [phone] Tatyana Dwyer MD [address] [place], [place] [address] documented as of this encounter Visit Diagnoses Not on filedocumented in this encounter Care Teams Erp Manager Relationship Specialty Start Date End Date Tatyana Dwyer MD [address] [place], [place] [phone] PCP - General Internal Medicine 06/01/19 Annalee Toussaint PA-C 6363 [facility] 500 [place] [address] Physician Certification Technician Physician Certification Technician - Medical 07/15/19 Cr Fung MD [address] [place] [address] 394 [place] [address] Urology 07/15/19 Bianca Rubalcava, RN Specialty State Director Urology 07/15/19 Wm Ryan MD [address] [place] [address] Resident Student in [facility] health care education/training program 02/01/21 Tatyana Dwyer MD [address] [place] [address] Assigned PCP 02/05/21 Christen Gallardo MD [facility] [address] Assigned Endocrinology Provider 11/18/21 Ana Fink MD [address] [place] [address] Fellow Gastroenterology 10/16/22 documented as of this encounter
--- OUTSIDE RECORDS SUMMARY | 2024-07-16 20:00 | XMS_ITS | Encounter Summary ---
Author Organization [place] Address [facility] [place] [address] Care Team Providers Care Med Spec Name Role Phone Tatyana Dwyer MD Primary Care P rovider Annalee Toussaint-C Unavailable [phone] Cr Fung MD Unavailable Bianca Rubalcava RN Unavailable [phone] Wm Ryan MD Unavailable [phone] Tatyana Dwyer MD Unavailable Christen Gallardo MD Unavailable [phone] Ana Fink MD Unavailable Encounter Details Date Type Department Care Team (Late st Contact Info) Description 01/08/2023 [facility] Medical Advice [facility] Specialty [address] [phone] Christen Gallardo MD [facility] [place] [address] Social History Tobacco Use Types [...] PM CDT Legal Sex Male 3:08 AM CASH MANAGEMENT ASSOCIATE Gender Identity Male 12/19/2020 9:52 PM [...] st Contact Info) Description 08/18/2024 2:00 PM CASH MANAGEMENT ASSOCIATE Virtual Visit [address] [place] [phone] [place] [address] 11/20/2024 9:30 AM CDT Office Visit [place] [address] [place] [phone] Tatyana Dwyer MD [address] [place] [address] documented as of this encounter Visit Diagnoses Not on filedocumented in this encounter Care Teams Med Spec Relationship Specialty Start Date End Date Tatyana Dwyer MD [address] [place] [address] PCP - General Internal Medicine 06/01/19 Annalee Toussaint PA-C [address] [place] [address] Physician Bindery Technician Physician Bindery Technician - Medical 07/15/19 Cr Fung MD [address] [place] [address] Urology 07/15/19 Bianca Rubalcava, RODNEY Specialty Family Physician Urology 07/15/19 Wm Ryan MD [address] [place] [id number] Resident Student in organized health care education/training program 02/01/21 Taytana Dwyer MD [address] [place] [address] Assigned PCP 02/05/21 Christen Gallardo MD [facility] [address] Assigned Endocrinology Provider 11/18/21 Ana Fink MD [address] [place] [id number] Fellow Gastroenterology 10/16/22 documented as of this encounter
--- OUTSIDE RECORDS SUMMARY | 2024-07-16 20:00 | XMS_ITS | Encounter Summary ---
Author Organization [place] Address [facility] [address] Care Team Providers Care Anesthesiologist Assistant Name Role Phone Tatyana Dwyer MD Primary Care P rovider Annalee Toussaint PA-C Unavailable [phone] Cr Fung MD Unavailable Bianca Rubalcava RN Unavailable [phone] Wm Ryan MD Unavailable [phone] Tatyana Dwyer MD Unavailable Christen Gallardo MD Unavailable [phone] Ana Fink MD Unavailable Encounter Details Date Type Department Care Team (Late st Contact Info) Description 02/10/2024 MyC Medical Advice [facility] [address] [address] May Farah Social History Tobacco [...] re latives? Twice a week 11/16/2023 Attends Orthodox Services Not on file 11/15 Active Member [...] Answer Date Recorded PHQ-2 Score 0 11/21/2023 [facility] [place] of Occupat ional Health - Occupational Stress [...] in an abandoned building, in an overnight skilled nursing, or couch-surfing.) Yes 11/16/2023 Are you worried [...] PM CDT Legal Sex Male 3:08 AM BEHAVIORAL HEALTH THERAPIST Gender Identity Male 12/19/2020 9:52 PM CDT Sexual Orientation Straight 12/19/2020 9: 52 PM CDT documented as of this encounter Plan of Treatment Upcoming Encounters Date Type Department Care Team (Late st Contact Info) Description 08/18/2024 2:00 PM BEHAVIORAL HEALTH THERAPIST Virtual Visit [address] [place] [phone] Christen Gallardo MD [place], [place] [phone] 11/20/2024 9:30 AM CDT Office Visit [address] [place] [address] [place] [address] Tatyana Dwyer MD [address] [place], [place] [address] documented as of this encounter Visit Diagnoses Not on filedocumented in this encounter Care Teams Anesthesiologist Assistant Relationship Specialty Start Date End Date Tatyana Dwyer MD [address] [place], [place] [phone] PCP - General Internal Medicine 06/01/19 Annalee Toussaint PA-C [address] [place] [address] Physician Disbursing Agent Physician Disbursing Agent - Medical 07/15/19 Cr Fung MD [address] [place] [address] 394 [place] [address] Urology 07/15/19 Bianca Rubalcava, RODNEY Specialty Cotton Sampler Urology 07/15/19 Wm Ryan MD [address] [place] [address] Resident Student in organized health care education/training program 02/01/21 Tatyana Dwyer MD [address] [place] [address] Assigned PCP 02/05/21 [place] [address] Assigned Endocrinology Provider 11/18/21 Ana Fink MD [address] [place] [address] Fellow Gastroenterology 10/16/22 documented as of this encounter
--- OUTSIDE RECORDS SUMMARY | 2024-07-16 20:00 | XMS_ITS | Encounter Summary ---
Author Organization [place] Address [facility] [address] Care Team Providers Care Trial Consultant Name Role Phone Tatyana Dwyer MD Primary Care P rovider Annalee Toussaint PA-C Unavailable [phone] Cr Fung MD Unavailable Bianca Rubalcava RN Unavailable [phone] Wm Ryan MD Unavailable Tatyana Dwyer MD Unavailable Christen Gallardo MD Unavailable [phone] Ana Fink MD Unavailable Encounter Details Date Type Department Care Team (Late st Contact Info) Description 06/30/2024 [facility] Medical Advice [facility] Specialty [address] [address] Christen Gallardo MD [place] [address] Social History Tobacco Use Types [...] re latives? Twice a week 11/16/2023 Attends Mu-Ism Services Not on file 11/15 Active Member [...] Answer Date Recorded PHQ-2 Score 0 11/21/2023 [facility] of Occupat ional Health - Occupational [...] in an abandoned building, in an overnight fci, or couch-surfing.) Yes 11/16/2023 Are you worried [...] PM CDT Legal Sex Male 3:08 AM CLOUD ADMINISTRATOR Gender Identity Male 12/19/2020 9:52 PM CDT Sexual Orientation Straight 12/19/2020 9: 52 PM CDT documented as of this encounter Plan of Treatment Upcoming Encounters Date Type Department Care Team (Late st Contact Info) Description 08/18/2024 2:00 PM CLOUD ADMINISTRATOR Virtual Visit [address] [phone] [place] [address] 11/20/2024 9:30 AM CDT Office Visit [address] [place] [address] [place] [phone] Tatyana Dwyer MD [facility] [address] [place], [place] [address] documented as of this encounter Visit Diagnoses Not on filedocumented in this encounter Care Teams Trial Consultant Relationship Specialty Start Date End Date Tatyana Dwyer MD [facility] [place] [address] PCP - General Internal Medicine 06/01/19 Annalee Toussaint PA-C [address] [address] Physician Licensed Journeyman Electrician Physician Licensed Journeyman Electrician - Medical 07/15/19 Cr Fung MD [address] [place] [address] Urology 07/15/19 Bianca Rubalcava, RODNEY Specialty Gold Letterer Urology 07/15/19 Wm Ryan MD [address] [place] [id number] Resident Student in organized health care education/training program 02/01/21 Tatyana Dwyer MD [address] [place], [place] [address] Assigned PCP 02/05/21 Christen Gallardo [place] [address] Assigned Endocrinology Provider 11/18/21 Ana Fink MD [address] [place] [address]60[address] Fellow Gastroenterology 10/16/22 documented as of this encounter
--- OUTSIDE RECORDS SUMMARY | 2024-07-16 20:00 | XMS_ITS | Encounter Summary ---
Author Organization [place] Address [facility] [place] [address] Care Team Providers Care Chainman Name Role Phone Tatyana Dwyer MD Primary Care P rovider Annalee Toussaint PA-C Unavailable Cr Fung MD Unavailable Bianca Rubalcava RN Unavailable [phone] Wm Ryan MD Unavailable Tatyana Dwyer MD Unavailable Christen Gallardo MD Unavailable [phone] Ana Fink MD Unavailable Encounter Details Date Type Department Care Team (Late st Contact Info) Description 03/06/2024 [facility] Medical Advice [facility] Specialty [address] [phone] Christen Gallardo MD [place] [address] Social History Tobacco Use Types [...] re latives? Twice a week 11/16/2023 Attends Congregational Services Not on file 11/15 Active Member [...] Answer Date Recorded PHQ-2 Score 0 11/21/2023 [facility] of Occupat ional Health - Occupational [...] in an abandoned building, in an overnight mcfp, or couch-surfing.) Yes 11/16/2023 Are you worried [...] PM CDT Legal Sex Male 3:08 AM CAREER TECHNICAL COUNSELOR Gender Identity Male 12/19/2020 9:52 PM CDT Sexual Orientation Straight 12/19/2020 9: 52 PM CDT documented as of this encounter Plan of Treatment Upcoming Encounters Date Type Department Care Team (Late st Contact Info) Description 08/18/2024 2:00 PM CAREER TECHNICAL COUNSELOR Virtual Visit [address] [phone] [place] [address] 11/20/2024 9:30 AM CDT Office Visit [address] [place] [address] [place] [phone] Tatyana Dwyer MD [facility] [place], [place] [address] documented as of this encounter Visit Diagnoses Not on filedocumented in this encounter Care Teams Chainman Relationship Specialty Start Date End Date Tatyana Dwyer MD [facility] [place] [address] PCP - General Internal Medicine 06/01/19 Annalee Toussaint PA-C [address] [address] Physician Reconciliation Coordinator Physician Reconciliation Coordinator - Medical 07/15/19 Cr Fung MD [address] [place] [address] Urology 07/15/19 Bianca Rubalcava, RODNEY Specialty Application Manager Urology 07/15/19 Wm Ryan MD [address] [place] [address] 952605 Resident Student in organized health care education/training program 02/01/21 Tatyana Dwyer MD [address] [place], [place] 87[address] Assigned PCP 02/05/21 Christen Gallardo [place] [address] Assigned Endocrinology Provider 11/18/21 Ana Fink MD [address] [place] [id number] Fellow Gastroenterology 10/16/22 documented as of this encounter
--- OUTSIDE RECORDS SUMMARY | 2024-07-16 20:00 | XMS_ITS | Clinical Summary ---
Author Organization [employer] [facility] [employer] [facility] Address [place], [place] [address] Care Team Providers Care Marketing Intelligence Analyst Name Role Phone Tatyana Dwyer MD Primary Care Provider Allergies No known active allergies Medications multivitamin-fol ic acid 0.4 mg tablet Take by mouth. Active nebivolol (BYSTOLIC) 2.5 mg tab Take 2.5 mg by mouth. 06/30/2019 Active sildenafil citrate (VIAGRA) 100 mg tablet Take 50-100 mg by mouth. 08/20/2019 Active hydroCHLOROthiaz lucas (HCTZ) 25 mg tablet 09/04/2019 Active lisinopriL (PRINIVIL; ZESTRIL) 10 mg tablet 08/22/2019 Active Family History Medical History Relation Name Comments Cancer Father Relation Name Status Comments Father Mother Alive Sister Alive Social History Tobacco Use Types Packs/Day Years Used Date Smoking Tobacco: Never Smokeless Tobacco: Never Tobacco Cessation:Counseling Given: No Alcohol Use Standard Drinks/Week Comments Not Currently 0 (1 standard drink = 0.6 oz pur e alcohol) Sex and Gender Information Value Date Recorded Sex Assigned at Not on file Legal Sex Male 4:57 PM PLATING INSPECTOR Gender Identity Not on file Sexual Orientation Not on file Obstetrics History Last Filed Vital Signs Vital Sign Reading Time Taken Comments Blood Pressure 140/94 03/27/2020 6:07 PM CDT Pulse 82 03/27/2020 6:07 PM CDT Temperature 37.1 C (98.7 F) 03/27/2020 6:07 PM CDT Respiratory Rate 16 03/27/2020 6:07 PM CDT Oxygen Saturation 98% 03/27/2020 6:07 PM CDT Inhaled Oxygen Concentration - - Weight 140.6 kg (310 lb) 03/27/2020 6:07 PM CDT Height 182.9 cm (6') 03/27/2020 6:07 PM CDT Body Mass Index 42.04 03/27/2020 6:07 PM CDT Plan of Treatment Not on file [facility] Care Teams Marketing Intelligence Analyst Relationship Specialty Start Date End Date Tatyana Dwyer MD [address] [place] [address] PCP - General Internal Medicine 06/14/19
--- OUTSIDE RECORDS SUMMARY | 2024-07-16 20:00 | XMS_ITS | Encounter Summary ---
Author Organization [place] Address [facility] [place] [address] Care Team Providers Care Facility Maintenance Mechanic Name Role Phone Tatyana Dwyer MD Primary Care P rovider Annalee Toussaint-C Unavailable Cr Fung MD Unavailable [phone] Bianca Rubalcava RN Unavailable [phone] Wm Ryan MD Unavailable Tatyana Dwyer MD Unavailable Christen Gallardo MD Unavailable [phone] Ana Fink MD Unavailable Encounter Details Date Type Department Care Team (Late st Contact Info) Description 03/15/2023 [facility] Medical Advice [facility] Specialty [address] [address] Christen Gallardo MD [place] [address] Social History Tobacco Use Types [...] PM CDT Legal Sex Male 3:08 AM ANIMAL SCIENCE INSTRUCTOR Gender Identity Male 12/19/2020 9:52 PM CDT Sexual Orientation Straight 12/19/2020 9: 52 PM CDT documented as of this encounter Plan of Treatment Upcoming Encounters Date Type Department Care Team (Late st Contact Info) Description 08/18/2024 2:00 PM ANIMAL SCIENCE INSTRUCTOR Virtual Visit [address] [place] [address] [place] [address] 11/20/2024 9:30 AM CDT Office Visit [facility] [address] [place] [phone] Tatyana Dwyer MD [address] [place], [place] [address] documented as of this encounter Visit Diagnoses Not on filedocumented in this encounter Care Teams Facility Maintenance Mechanic Relationship Specialty Start Date End Date Tatyana Dwyer MD [address] [place], [place] [address] PCP - General Internal Medicine 06/01/19 Annalee Toussaint PA-C [address] [address] Physician Open Claims Representative Physician Open Claims Representative - Medical 07/15/19 Cr Fung MD [address] [place] [address] [address] [place] [address] Urology 07/15/19 Bianca Rubalcava, RN Specialty Patrol Agent Urology 07/15/19 Wm Ryan MD [address] [place] [id number] Resident Student in organized health care education/training program 02/01/21 Tatyana Dwyer MD [address] [place], [place] 08[address]87 Assigned PCP 02/05/21 Christen Gallardo [place] [address] Assigned Endocrinology Provider 11/18/21 Ana Fink MD [address] [place] [address] Fellow Gastroenterology 10/16/22 documented as of this encounter
--- OUTSIDE RECORDS SUMMARY | 2024-07-16 20:00 | XMS_ITS | Encounter Summary ---
Author Organization [place] Address [facility] [place] [address] Care Team Providers Care Capping Machine Operator Name Role Phone Tatyana Dwyer MD Primary Care P rolorettader Annalee Toussaint PA-C Unavailable Cr Fung MD Unavailable Bianca Rubalcava RN Unavailable [phone] Wm Ryan MD Unavailable [phone] Tatyana Dwyer MD Unavailable Jaime Wood MD Unavailable Christen Gallardo MD Unavailable [phone] Ana Fink MD Unavailable Reason for Visit * Reason Onset Date Comments Refill Request 11/06/2022 lisinopril (ZESTRIL) 20 MG tablet 11/06/2022 Encounter Details Date Type Department Care Team (Late st Contact Info) Description 11/06/2022 Refill [facility] [address] [place] [address] aTtyana Dwyer MD [address] [place] [address] Refill Request; lisinopril (ZESTRIL) 20 [...] CDT Legal Sex Male 3:08 AM BUSINESS OFFICE REPRESENTATIVE Gender Identity Male 12/19/2020 9:52 PM CDT [...] 11/07/2022 2:14 PM CDT Prescription approved per [facility] Refill Protocol. Due around 06/21/23 for next office visit documented in this encounter Plan of Treatment Upcoming Encounters Date Type Department Care Team (Late st Contact Info) Description 08/18/2024 2:00 PM BUSINESS OFFICE REPRESENTATIVE Virtual Visit [address] [place] [address] [place] [address] 11/20/2024 9:30 AM CDT Office Visit [address] [place] [address] Tatyana Dwyer MD [address] [place], [place] [address] documented as of this encounter Visit Diagnoses Diagnosis HTN, goal below 140/90 Unspecified essential hypertension documented in this encounter Care Teams Capping Machine Operator Relationship Specialty Start Date End Date Tatyana Dwyer MD [address] [place], [place] [address] PCP - General Internal Medicine 06/01/19 Annalee Toussaint PA-C [address] [place], [place] [address] Physician Fruit Picker Machine Operator Physician Fruit Picker Machine Operator - Medical 07/15/19 rC Fung MD [address] [facility] 394 [place], [place] [address] Urology 07/15/19 Bianca Rubalcava, RODNEY Specialty Corporate Relations Director Urology 07/15/19 Wm Ryan MD [address] [place], [place] [address]195 Resident Student in organized health care education/training program 02/01/21 Tatyana Dwyer MD [address] [place] [address] Assigned PCP 02/05/21 Jaime Wood MD [address] [place], [place] [address] Assigned Sleep Provider 07/09/21 01/04/23 [place] [address] Assigned Endocrinology Provider 11/18/21 Ana Fink MD [address] [place] [address] Fellow Gastroenterology 10/16/22 documented as of this encounter
--- OUTSIDE RECORDS SUMMARY | 2024-07-16 20:00 | XMS_ITS | Encounter Summary ---
Author Organization [employer] Address [address] [place] [address] Care Team Providers Care Blender Operator Name Role Phone Tatyana Dwyer MD Primary Care P rolorettader Tatyana Dwyer MD Unavailable Annalee Toussaint-C Unavailable [phone] Cr Fung MD Unavailable [phone] Bianca Rubalcava RN Unavailable [phone] Keegan Montemayor MD Unavailable Un available Joselin Andrade PA-C Unavailable Steven Tatum MD Unavailable Jim Mark MD Unavailable [phone] Jaime Wood MD Unavailable [phone] Annalee Toussaint-C Unavailable [phone] Honey Jackson APRN, CNP Unavailable + [phone] Wm Ryan MD Unavailable Tatyana Dwyer MD Unavailable Amalia Agosto GC Unavailable [phone] Jaime Wood MD Unavailable [phone] Christen Gallardo MD Unavailable [phone] Ana Fink MD Unavailable Encounter Details Date Type Department Care Team (Late st Contact Info) Description 01/25/2020 MyC Medical Advice [facility] Dermatologic Surgery [address] [facility] 3rd [place] [address] [place] [address] [place] [address] Social History Tobacco Use Types Packs/Day Years [...] PM CDT Legal Sex Male 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 SCHOOL BUSINESS 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 Gender Identity Male 12/19/2020 9:52 PM [...] st Contact Info) Description 08/18/2024 2:00 PM SCHOOL BUSINESS MANAGER Virtual Visit [facility] Specialty [address] [place] [address] Christen Gallardo [place] [address] 11/20/2024 9:30 AM CDT Office Visit [address] [place] [address] [place] [address] Tatyana Dwyer MD [address] [place], [place] [address] documented as of this encounter Visit Diagnoses Not on filedocumented in this encounter Additional Health Concerns Infection Onset Date Last Indicated Resolved Time Rule Out COVID-19 10/25/2021 10/25/2021 10/26/2021 12:43 PM CDT COVID-19 10/25/2021 10/25/2021 11/15/2021 11:3 9 PM CDT documented as of this encounter Care Teams Blender Operator Relationship Specialty Start Date End Date Tatyana Dwyer MD [address] [place] [address] PCP - General Internal Medicine 06/01/19 Tatyana Dwyer MD [address] [place] [place], [place] [address] Assigned PCP 05/31/19 10/15/20 Annalee Toussaint PA-C 6[address] [facility] [address] [address] Physician Press Brake Operator Physician Press Brake Operator - Medical 07/15/19 Cr Fung MD 420 [facility] 394 [place], [place] [address] Urology 07/15/19 Bianca Rubalcava, RN Specialty Dancing Master Urology 07/15/19 Keegan Montemayor MD Assigned Heart and Vascular Provider 04/08/20 12/27/20 Joselin Andrade PA-C [address] [place] [address] Assigned Pediatric Specialist Provider 04/08/20 07/17/20 [place] [address] [place] [address] Assigned Surgical Provider 04/08/20 07/22/21 Jim Mark MD [address] [place], [place] [address] Assigned Musculoskeletal Provider 04/08/20 02/11/21 Jaime Wood MD [address] [place] [address] Assigned Sleep Provider 04/08/2004/08 Annalee Toussaint PA-C [address] [place], [place] [address] Assigned OBGYN Provider 08/31/20 1 Honey Jackson APRN [place] [facility] [address] [place], [place] [address] Assigned PCP 10/16/20 02/04/21 Wm Ryan MD [address] [place] [address] [id number] Resident Student in organized health care education/training program 02/01/21 Tatyana Dwyer MD [address] [place], [place] [address] Assigned PCP 02/05/21 Amalia Agosto GC [address] [place], [place] [address] Assigned OBGYN Provider 05/07/21 07/15/21 Jaime Wood MD 6363 [facility] 103 [place], [place] [address] Assigned Sleep Provider 07/09/21 Christen [place] [address] Assigned Endocrinology Provider 11/18/21 Ana Fink MD [address] [place] [id number] Fellow Gastroenterology 10/16/22 documented as of this encounter
--- OUTSIDE RECORDS SUMMARY | 2024-07-16 20:00 | XMS_ITS | Encounter Summary ---
Author Organization [place] Address [address] [place] [address] Care Team Providers Care Kiln Tester Name Role Phone Tatyana Dwyer MD Primary Care P rolorettader Tatyana Dwyer MD Unavailable Annalee Toussaint-C Unavailable Cr Fung MD Unavailable Bianca Rubalcava RN Unavailable [phone] Keegan Montemayor MD Unavailable Un available Joselin Andrade PA-C Unavailable Steven Tatum MD Unavailable Jim Mark MD Unavailable [phone] Jaime Wood MD Unavailable [phone] Annalee Toussaint-C Unavailable [phone] Honey Jackson APRN, CNP Unavailable + [phone] Wm Ryan MD Unavailable [phone] Tatyana Dwyer MD Unavailable Amalia Agosto GC Unavailable [phone] Jaime Wood MD Unavailable [phone] Christen Gallardo MD Unavailable [phone] Ana Fink MD Unavailable Encounter Details Date Type Department Care Team (Late st Contact Info) Description 08/27/2019 Orders Only [facility] Health 9[address] [facility] [address] 5th [place] [address] Hill Spears MD [address] [facility] SE [facility] 741 [place] [address] Social History Tobacco Use Types Packs/Day Years [...] PM CDT Legal Sex Male 3:08 AM SKIVER WELT END Gender Identity Male 12/19/2020 9:52 PM CDT Sexual Orientation Straight 12/19/2020 9: 52 PM CDT documented as of this encounter Plan of Treatment Upcoming Encounters Date Type Department Care Team (Late st Contact Info) Description 08/18/2024 2:00 PM SKIVER WELT END Virtual Visit [address] [place] [phone] Christen Gallardo [place] [address] 11/20/2024 9:30 AM CDT Office Visit [place] [address] [place] [address] Tatyana Dwyer MD [facility] [place] [address] documented as of this encounter Visit Diagnoses Not on filedocumented in this encounter Additional Health Concerns Infection Onset Date Last Indicated Resolved Time Rule Out COVID-19 10/25/2021 10/25/2021 10/26/2021 12:43 PM CDT COVID-19 10/25/2021 10/25/2021 11/15/2021 11:3 9 PM CDT documented as of this encounter Care Teams Kiln Tester Relationship Specialty Start Date End Date Tatyana Dwyer MD [address] [place], [place] [address] PCP - General Internal Medicine 06/01/19 Tatyana Dwyer MD [address] [place] [address] Assigned PCP 05/31/19 10/15/20 Annalee Toussaint PA-C [address] [address] Physician Phosphatic Fertilizer Supervisor Physician Phosphatic Fertilizer Supervisor - Medical 07/15/19 Cr Fung MD 420 [facility] 394 [place] [address] Urology 07/15/19 Bianca Rubalcava, RN Specialty General Office Dispatcher Urology 07/15/19 Keegan Montemayor MD Assigned Heart and Vascular Provider 04/08/20 12/27/20 Joselin Andrade PA-C [address] [place] [address] Assigned Pediatric Specialist Provider 04/08/20 07/17/20 [place] [address] [place] [address] Assigned Surgical Provider 04/08/20 07/22/21 Jim Mark MD [address] [place] [address] Assigned Musculoskeletal Provider 04/08/20 02/11/21 Jaime Wood MD [address] [facility] [address] [place], [place] [address] Assigned Sleep Provider 04/08/2004/08 Annalee Toussaint PA-C [address] [place], [place] [address] Assigned OBGYN Provider 08/31/20 1 Honey Jackson APRN [facility] [address] [place] [address] Assigned PCP 10/16/20 02/04/21 Wm Ryan MD [address] [place] [address] Resident Student in organized health care education/training program 02/01/21 aTtyana Dwyer MD [address] [place] [address] Assigned PCP 02/05/21 Amalia Agosto GC [address] [place], [place] [address] Assigned OBGYN Provider 05/07/21 07/15/21 Jaime Wood MD [address] [address] Assigned Sleep Provider 07/09/21 Christen Gallardo [place] [address] Assigned Endocrinology Provider 11/18/21 Ana Fink MD [address] [place] [address] Fellow Gastroenterology 10/16/22 documented as of this encounter
--- OUTSIDE RECORDS SUMMARY | 2024-07-16 20:00 | XMS_ITS | Encounter Summary ---
Author Organization [place] Address [address] [place] [address] Care Team Providers Care Side Stapler Name Role Phone Tatyana Dwyer MD Primary Care P rolorettader Tatyana Dwyer MD Unavailable Annalee Toussaint-C Unavailable Cr Fung MD Unavailable Bianca Rubalcava RN Unavailable [phone] Keegan Montemayor MD Unavailable Un available Joselin Andrade PA-C Unavailable Steven Tatum MD Unavailable Jim Mark MD Unavailable [phone] Jaime Wood MD Unavailable [phone] Annalee Toussaint-C Unavailable [phone] Honey Jackson APRN, CNP Unavailable + [phone] Wm Ryan MD Unavailable Tatyana Dwyer MD Unavailable Amalia Agosto GC Unavailable [phone] Jaime Wood MD Unavailable [phone] Christen Gallardo MD Unavailable [phone] Ana Fink MD Unavailable Encounter Details Date Type Department Care Team (Late st Contact Info) Description 01/19/2020 MyC Medical Advice [facility] Dermatologic Surgery 909 [facility] 3rd [place] [address] [place] [address] [place] [address] Social History Tobacco Use Types Packs/Day Years [...] PM CDT Legal 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 Gender Identity Male 12/19/2020 9:52 PM [...] st Contact Info) Description 08/18/2024 2:00 PM VOCATIONAL INSTRUCTOR Virtual Visit [facility] Specialty [address] [place] [address] Christen Gallardo MD [place] [address] 11/20/2024 9:30 AM CDT Office Visit [address] [place] [address] [place] [address] Tatyana Dwyer MD [address] [place], [place] [address] documented as of this encounter Visit Diagnoses Not on filedocumented in this encounter Additional Health Concerns Infection Onset Date Last Indicated Resolved Time Rule Out COVID-19 10/25/2021 10/25/2021 10/26/2021 12:43 PM CDT COVID-19 10/25/2021 10/25/2021 11/15/2021 11:3 9 PM CDT documented as of this encounter Care Teams Side Stapler Relationship Specialty Start Date End Date Tatyana Dwyer MD [address] [place] [address] PCP - General Internal Medicine 06/01/19 Tatyana Dwyer MD [address] [place], [place] [address] Assigned PCP 05/31/19 10/15/20 Annalee Toussaint PA-C [address] [facility] [address] [address] Physician Technology Architect Physician Technology Architect - Medical 07/15/19 Cr Fung MD 420 [facility] 394 [place], [place] [address] Urology 07/15/19 Bianca Rubalcava, RN Specialty Slat Grader Urology 07/15/19 Keegan Montemayor MD Assigned Heart and Vascular Provider 04/08/20 12/27/20 Joselin Andrade PA-C [address] [place] [address] Assigned Pediatric Specialist Provider 04/08/20 07/17/20 [place] [address] [place] [address] Assigned Surgical Provider 04/08/20 07/22/21 Jim Mark MD 909 [place], [place] [address] Assigned Musculoskeletal Provider 04/08/20 02/11/21 Jaime Wood MD [address] [place] [address] Assigned Sleep Provider 04/08/2004/08 Annalee Toussaint PA-C [address] [place], [place] [address] Assigned OBGYN Provider 08/31/20 1 Honey Jackson APRN PEDIATRIC HOSPITALIST [address] [place], [place] [address] Assigned PCP 10/16/20 02/04/21 Wm Ryan MD [address] [place] [address] Resident Student in organized health care education/training program 02/01/21 Tatyana Dwyer MD [address] [place], [place] [address] Assigned PCP 02/05/21 Amalia Agsoto GC [address]50 [place], [place] [address] Assigned OBGYN Provider 05/07/21 07/15/21 Jaime Wood MD 6363 [facility] 103 [place], [place] [address] Assigned Sleep Provider 07/09/21 Christen Gallardo [place] [address] Assigned Endocrinology Provider 11/18/21 Ana Fink MD [address] [place] [address] Fellow Gastroenterology 10/16/22 documented as of this encounter
--- OUTSIDE RECORDS SUMMARY | 2024-07-16 20:00 | XMS_ITS | Continuity of Care Document ---
Author Organization [facility] Address [address] [address] [place] [address] Phone Care Team Providers Care Healthcare Economics Consultant Name Role Phone Ruthann Thacker CRNA Unavailable [...] Diagnoses Date Provider Providers Copied on Encounter [facility], [address] [address], [place], [place], [id number], [place] tel:[phone] [facility] No Information Sep- 4 Kedar Beavers. [address] [facility] [address], [place], [place], [id number] , [place]. tel: [phone] Referring Provider: Mp Larson MD, [address] [facility] [address], [place], [address] . tel:[phone] [facility], [address] [address], [place], [place], [id number], [place] tel:[phone] [facility] GI Symptoms or Concerns (chief complaint) Colorectal polypsDiverticulosi s of colon without diverticulitisFamil y history of colon cancer in fatherEncounter for screening for malignant neoplasm of colonBenign neoplasm of ascending colonBenign neoplasm of transverse colonFamily history of malignant neoplasm of digestive organs Sep- 4 Marsha Gresham. [address] [facility] [address], [place], [place], [id number] , [place]. tel: [phone] Referring Provider: Tatyana Lam MD, [address] [place] [address], [address]. tel:[phone] [facility], [address] [address], [place], [place], [id number], [place] tel:[phone] [facility] No Information Sep-0 4 Rick Connolly. [address] [facility] [address], [place], [place], [id number] , [place]. tel: [phone] [facility], [address] [address], [place], [id number], [place] tel:[phone] [facility] Abnormal CT scan, kidney Aug- 0 Harris Gasca. [address] [facility] [address], [place], [id number] , [place]. tel: [phone] [facility], [address] [address], [place], [id number], [place] tel:[phone] [facility] Periumbilical pain 0 Harris Gasca. [address] [facility] [address], [place], [id number] , [place]. tel: [phone] Offic/outpt E&m New Mod-hi [facility], [address] [address], [place], [id number], [place] tel:[phone] [facility] GI Symptoms or Concerns (chief complaint) Right lower quadrant painPeriumbilical painHeartburnDietar y counseling and surveillanceEssenti al (primary) hypertension 0 Harris Gasca. [address] [facility] [address], [place], [id number] , [place]. tel: [phone] Referring Provider: Referral Self, USE FOR SELF [...] ; Source: Other Registry Influenza, injectable, Madin Mary Canine Kidney, preservative free, quadrivalent administered Note: [...] Registry Payers Payer name Insurance type Covered democrat ID Authoriza tishelli(s) [facility] [id number] Social History Type Description Quantity Date Captured [...]
--- OUTSIDE RECORDS SUMMARY | 2024-07-16 20:01 | XMS_ITS | Referral Summary ---
Author Organization [place] Address [facility] [place] [address] Care Team Providers Care Manager Plumbing Name Role Phone Tatyana Dwyer MD Primary Care P rovider Annalee ToussaintC Unavailable Cr Fung MD Unavailable [phone] Bianca Rubalcava RN Unavailable [phone] Wm Ryan MD Unavailable Tatyana Dwyer MD Unavailable Christen Gallardo MD Unavailable [phone] Ana Fink MD Unavailable Encounters Date Type Department Care Team Description 07/02/2024 MyC Medical Advice [facility] [address] [place] [address] Tatyana Dwyer MD Refill Request 07/01/[address] [place] [address] Christen Gallardo MD Prior Auth - Medication (Wegovy 2.4- PA APPROVED) 06/30/2024 MyC Medical Advice [address] [place] [address] Christen Gallardo MD 06/23/2024 Travel 06/23/2024 9:00 AM BOTTLE WASHER Lab [facility] [address] [place] [address] Hypogonadism in male; MINA (nonalcoholic steatohepatitis) 06/18/2024 Travel 06/13/2024 Refill [facility] [address] [place] [address] Tatyana Dwyer MD Medication Refill 05/22/2024 MyC Medical Advice [address] [phone] Christen Gallardo MD Class 3 severe obesity with serious comorbidity and body mass index (BMI) of 45.0 to 49.9 in adult, unspecified obesity type (H) (Primary Dx) 04/17/[address] [phone] Christen Gallardo MD Medication Refill from Last [...] (12/02/2019): Added automatically from request for surgery [id number] Family history of acute heart failure ( [...] - small hemorrh agic cyst as per [place] [facility] 08/05/2017 08/05/2017 Essential hypertension, benign 11/25/2015 [...] re latives? Twice a week 11/16/2023 Attends Faith Services Not on file 11/15 Active Member [...] Answer Date Recorded PHQ-2 Score 0 11/21/2023 [facility] of Occupat ional Health - Occupational Stress [...] PM CDT Legal Sex Male 3:08 AM BOTTLE WASHER Gender Identity Male 12/19/2020 9:52 PM CDT [...] st Contact Info) Description 08/18/2024 2:00 PM BOTTLE WASHER Virtual Visit [place] [address] [address] [address] Christen Gallardo MD [facility] [place] [address] 11/20/2024 9:30 AM CDT Office Visit [facility] [address] [place] [address] Tatyana Dwyer MD [address] [place] [address] Procedures Procedure Name Priority Date/Time Associated Diagnosis Comments TESTOSTERONE FREE AND TOTAL Routine 06/23/2024 9:02 AM BOTTLE WASHER Hypogonadism in male TESTOSTERONE FREE AND TOTAL Routine 06/23/2024 9:02 AM BOTTLE WASHER Hypogonadism in male SEX HORMONE BINDING GLOBULIN Routine 06/23/2024 9:02 AM BOTTLE WASHER Hypogonadism in male HEPATIC FUNCTION PANEL Routine 9:02 AM BOTTLE WASHER MINA (nonalcoholic steatohepatitis) HEMOGLOBIN AND HEMATOCRIT Routine 06/23/2024 9:02 AM BOTTLE WASHER Hypogonadism in male COMPREHENSIVE METABOLIC PANEL Routine 11/21/2023 10:11 AM CDT Routine general medical examination at a [facility] COLONOSCOPY - HIM SCAN 4 12:00 AM CDT HEPATITIS C SCREEN REFLEX TO HCV RNA QUANT AND GENOTYPE Routine 12/03/2022 8:43 AM CDT LFT elevation HIV ANTIGEN ANTIBODY COMBO Routine 08/12/2019 7:06 AM BOTTLE WASHER Encounter for preventive health examination from Last 3 Months or Most Recently Relevant to Health Maintenance Results * Testosterone Free and Total (06/23/2024 9:02 AM BOTTLE WASHER) Free Testosterone Calculated 16.15 ng/dL 06/25/2024 10:05 AM BOTTLE WASHER [facility] Comment: Male Aneesh Ranges: Aneesh Stage I: Less than or equal to 0.37 ng/dL Aneesh Stage II: 0.03-2.1 ng/dL Aneesh Stage III: 0.10-9.8 ng/dL Aneesh Stage IV: 3.5-16.9 ng/dL Aneesh Stage V: 4.1-23.9 ng/dL Testosterone Total 668 240 - 950 ng/dL 06/25/2024 10:05 AM BOTTLE WASHER SPECIAL DRUG/[facility] Blood BLOOD SPECIMEN / Unknown Venipuncture / Unknown 06/23/2024 9:02 AM BOTTLE WASHER 06/23/2024 9:02 AM BOTTLE WASHER Narrative SPECIAL DRUG/BGEN - 06/25/2024 10:05 AM BOTTLE WASHER This test was developed and its performance characteristics determined by the [facility], Special Chemistry Laboratory. It has not been cleared or approved by the FDA. The laboratory is regulated under CLIA as qualified to perform high-complexity testing. This test is used for clinical purposes. It should not be regarded as investigational or for research. Christen Gallardo MD LAB - BLOOD ORDERABLES Final Re sult SPECIAL DRUG/BGEN Special Drug/BGEN 500 [facility], [address] * Sex Hormone Binding Globulin (06/23/2024 9:02 AM BOTTLE WASHER) Sex Hormone Binding Globulin 28 11 - 80 nmol/L 06/23/2024 4:30 PM BOTTLE WASHER LABORATORY Blood BLOOD SPECIMEN / Unknown Venipuncture / Unknown 06/23/2024 9:02 AM BOTTLE WASHER 06/23/2024 9:02 AM BOTTLE WASHER Christen Gallardo MD LAB - BLOOD ORDERABLES Final Re sult LABORATORY [facility] [place] [facility] 500 [facility], [address] * Hepatic panel (Albumin, ALT, AST, Bili, Alk Phos, TP) (06/23/2024 9:02 AM BOTTLE WASHER) Protein Total 7.2 6.4 - 8.3 g/dL 06/23/2024 4:27 PM BOTTLE WASHER [facility] Albumin 4.3 3.5 - 5.2 g/dL 06/23/2024 4:27 PM BOTTLE WASHER [facility] Bilirubin Total 0.5 <=1.2 mg/dL 06/23/2024 4:27 PM BOTTLE WASHER [facility] Alkaline Phosphatase 50 40 - 150 U/L 06/23/2024 4:27 PM BOTTLE WASHER [facility] AST 31 0 - 45 U/L 06/23/2024 4:27 PM BOTTLE WASHER [facility] ALT 26 0 - 70 U/L 06/23/2024 4:27 PM BOTTLE WASHER [facility] Bilirubin Direct <0.20 0.00 - 0.30 mg/dL 06/23/2024 4:27 PM BOTTLE WASHER [facility] Blood BLOOD SPECIMEN / Unknown Venipuncture / Unknown 06/23/2024 9:02 AM BOTTLE WASHER 06/23/2024 9:02 AM BOTTLE WASHER Christen Gallardo MD LAB - BLOOD ORDERABLES Final Re sult [facility] LABORATORY [facility] [place] [facility] 500 [facility], [address] [place] [address] * Hemoglobin and hematocrit (06/23/2024 9:02 AM BOTTLE WASHER) Hemoglobin 16.3 13.3 - 17.7 g/dL 06/23/2024 9:04 AM BOTTLE WASHER [facility] LABORATORY Hematocrit 48.4 40.0 - 53.0 % 06/23/2024 9:04 AM BOTTLE WASHER [facility] Blood BLOOD SPECIMEN / Unknown Venipuncture / Unknown 06/23/2024 9:02 AM BOTTLE WASHER 06/23/2024 9:02 AM BOTTLE WASHER Christen Gallardo MD LAB - BLOOD ORDERABLES Final Re sult LV LABORATORY [facility] - [address] (no room number, 1st floor of clinic) [place] [address], [facility] * Comprehensive metabolic panel (11/21/2023 10:11 AM CDT) [facility] Sodium 138 135 - 145 mmol/L 11/22/2023 [...] BLOOD ORD ERABLES Final Result [facility]U LABORATORY [facility] [place] [facility] Lab 500 [facility], [address] [phone] * Colonoscopy - HIM Scan (10/09/2023 12:00 [...] CORE/PROT/ENDO UM Specialty Core/Prot/Endo [address] [facility] J [facility], Room [address] [place] [address], [facility] [phone] * HIV Antigen Antibody Combo [[id number]] (08/12/2019 7:06 AM BOTTLE WASHER) HIV Antigen Antibody Combo Nonreactive NR^Nonrea ctive 08/12/2019 2:49 PM BOTTLE WASHER [facility] Comment:HIV-1 p24 Ag & HIV-1 /HIV-2 Ab Not Detected Blood specimen (specimen) 08/12/2019 7:06 AM BOTTLE WASHER 08/12/2019 7:08 AM BOTTLE WASHER us Hill Spears MD LAB - BLOOD ORDERABLES Final Result [facility] [address] [place] [address] from Last 3 Months or Most Recently Relevant to Health Maintenance Insurance [facility] Care Teams Manager Plumbing Relationship Specialty Start Date End Date Tatyana Dwyer MD [address] [place] [address] PCP - General Internal Medicine 06/01/19 Annalee Toussaint, PA-C [address] [facility] 500 [place] [address] Physician Community Health Worker Physician Community Health Worker - Medical 07/15/19 Cr Fung MD [address] [place] [address] [address] [place] [address] Urology 07/15/19 Bianca Rubalcava, RODNEY Specialty Cripple Chaser Urology 07/15/19 Wm Ryan MD [address] [place] [address] Resident Student in [facility] health care education/training program 02/01/21 Tatyana Dwyer MD [address] [place], [place] [address] Assigned PCP 02/05/21 Christen Gallardo MD [facility] [place], [place] [phone] Assigned Endocrinology Provider 11/18/21 Ana Fink MD [address] [place] [address] Fellow Gastroenterology 10/16/22
--- OUTSIDE RECORDS SUMMARY | 2024-07-16 20:01 | XMS_ITS | Encounter Summary ---
Author Organization [place] Address [facility]0 [facility] [place] [address] Care Team Providers Care Caustic Operator Name Role Phone Tatyana Dwyer MD Primary Care P rolorettader Annalee Toussaint PA-C Unavailable Cr Fung MD Unavailable [phone] Bianca Rubalcava RN Unavailable [phone] Wm Ryan MD Unavailable Tatyana Dwyer MD Unavailable Christen Gallardo MD Unavailable [phone] Ana Fink MD Unavailable Reason for Visit * Reason Onset Date Comments Refill Request 07/02/2024 Encounter Details Date Type Department Care Team (Late st Contact Info) Description 07/02/2024 [facility] [address] [place] [address] Tatyana Dwyer MD [address] [place] [address] Refill Request Social History Tobacco [...] in an abandoned building, in an overnight nursing home, or couch-surfing.) Yes 11/16/2023 Are you worried [...] PM CDT Legal Sex Male 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 Sent [email or web address] message to patient. Thank you, Akira, collections specialist [facility] 5:28 PM 07/02/2024 ISH FACULTY MEMBER documented in this encounter Plan of Treatment Upcoming Encounters Date Type Department Care Team (Late st Contact Info) Description 08/18/2024 2:00 PM ENGLISH FACULTY MEMBER Virtual Visit [address] [place] [address] Christen Gallardo MD [place], [place] [phone] 11/20/2024 9:30 AM CDT Office Visit [facility] [address] [place] [address] Tatyana Dwyer MD [address] [place], [place] [address] documented as of this encounter Visit Diagnoses Diagnosis Tachycardia Tachycardia, unspecified HTN, goal below 140/90 Unspecified essential hypertension documented in this encounter Care Teams Caustic Operator Relationship Specialty Start Date End Date Tatyana Dwyer MD [address] [place] [address] PCP - General Internal Medicine 06/01/19 Annalee Toussaint PA-C [address] [address] Physician Information Technology Security Manager Physician Information Technology Security Manager - Medical 07/15/19 Cr Fung MD [address] [phone] Urology 07/15/19 Bianca Rubalcava, RN Specialty Forestry Contractor Urology 07/15/19 Wm Ryan MD [address] [place] [phone] Resident Student in organized health care education/training program 02/01/21 Tatyana Dwyer MD [address] [place] [address] Assigned PCP 02/05/21 [place] [address] Assigned Endocrinology Provider 11/18/21 Ana Fink MD [address] [place] [address] Fellow Gastroenterology 10/16/22 documented as of this encounter
--- OUTSIDE RECORDS SUMMARY | 2024-07-16 20:01 | XMS_ITS | Clinical Summary ---
Author Organization [place] Address [facility] [place] [address] Care Team Providers Care Platinum And Palladium Kettle Tender Name Role Phone Tatyana Dwyer MD Primary Care P rovider Annalee Toussaint-C Unavailable Cr Fung MD Unavailable Bianca Rubalcava RN Unavailable [phone] Wm Ryan MD Unavailable [phone] Tatyana Dwyer MD Unavailable Christen Gallardo MD Unavailable [phone] Ana Fink MD Unavailable Allergies Active [...] (12/02/2019): Added automatically from request for surgery [id number] Family history of acute heart failure ( [...] - small hemorrh agic cyst as per [place] [facility] 08/05/2017 08/05/2017 Essential hypertension, benign 11/25/2015 08/05/2017 Encounters Date Type Department Care Team Description 07/02/2024 [facility] Medical Advice [facility] [address] [facility] [address] [place] [address] Tatyana Dwyer MD Refill Request 07/01/[address] [place] [address] Christen Gallardo MD Prior Auth - Medication (Wegovy 2.4- [place] APPROVED) 06/30/2024 MyC Medical Advice [address] [place] [address] Christen Gallardo MD 06/23/2024 9:00 AM ASSURANCE OFFICER Lab [facility] [address] [place] [phone] Hypogonadism in male; MINA (nonalcoholic steatohepatitis) 06/23/2024 Travel 06/18/2024 Travel 06/13/[address] [facility] [address] [facility] [address] [place] [address] Tatyana Dwyer MD Medication Refill 05/22/2024 MyC Medical Advice [address] [place] [phone] Christen Gallardo MD Class 3 severe obesity with serious comorbidity and body mass index (BMI) of 45.0 to 49.9 in adult, unspecified obesity type (H) (Primary Dx) 04/17/2024 Refill [facility] [address] [place] [address] [address] [place] [phone] Christen Gallardo MD Medication Refill from Last [...] re latives? Twice a week 11/16/2023 Attends Shinto Services Not on file 11/15 Active Member [...] 0 11/21/2023 [facility] - Occupational Stress Questionnaire Answer Date [...] in an abandoned building, in an overnight [place] [facility] [place], or couch-surfing.) Yes 11/16/2023 Are you worried [...] PM CDT Legal Sex Male 3:08 AM ASSURANCE OFFICER Gender Identity Male 12/19/2020 9:52 PM [...] st Contact Info) Description 08/18/2024 2:00 PM ASSURANCE OFFICER Virtual Visit [address] [place] [address] [place] [address] 11/20/2024 9:30 AM CDT Office Visit [facility] [address] [place] [phone] Tatyana Dwyer MD [address] [place], [place] [phone] Health Maintenance Due Date Last Done Comments [...] FREE AND TOTAL Routine 06/23/2024 9:02 AM ASSURANCE OFFICER Hypogonadism in male TESTOSTERONE FREE AND TOTAL Routine 06/23/2024 9:02 AM ASSURANCE OFFICER Hypogonadism in male SEX HORMONE BINDING GLOBULIN Routine 06/23/2024 9:02 AM ASSURANCE OFFICER Hypogonadism in male HEPATIC FUNCTION PANEL Routine 9:02 AM ASSURANCE OFFICER MINA (nonalcoholic steatohepatitis) HEMOGLOBIN AND HEMATOCRIT Routine 06/23/2024 9:02 AM ASSURANCE OFFICER Hypogonadism in male COMPREHENSIVE METABOLIC PANEL Routine 11/21/2023 10:11 AM CDT Routine general medical examination at a [facility] facility COLONOSCOPY - HIM SCAN 4 12:00 AM CDT HEPATITIS C SCREEN REFLEX TO HCV RNA QUANT AND GENOTYPE Routine 12/03/2022 8:43 AM CDT LFT elevation HIV ANTIGEN ANTIBODY COMBO Routine 08/12/2019 7:06 AM ASSURANCE OFFICER Encounter for preventive health examination from Last 3 Months or Most Recently Relevant to Health Maintenance Results * Testosterone Free and Total (06/23/2024 9:02 AM ASSURANCE OFFICER) Free Testosterone Calculated 16.15 ng/dL 06/25/2024 10:05 AM ASSURANCE OFFICER [facility] Comment: Male Aneesh Ranges: Aneesh Stage I: Less than or equal to 0.37 ng/dL Aneesh Stage II: 0.03-2.1 ng/dL Aneesh Stage III: 0.10-9.8 ng/dL Aneesh Stage IV: 3.5-16.9 ng/dL Aneesh Stage V: 4.1-23.9 ng/dL Testosterone Total 668 240 - 950 ng/dL 06/25/2024 10:05 AM ASSURANCE OFFICER [facility] Blood BLOOD SPECIMEN / Unknown Venipuncture / Unknown 06/23/2024 9:02 AM ASSURANCE OFFICER 06/23/2024 9:02 AM ASSURANCE OFFICER Narrative UM SPECIAL DRUG/BGEN - 06/25/2024 10:05 AM ASSURANCE OFFICER This test was developed and its performance characteristics determined by the [facility], Special Chemistry Laboratory. It has not been cleared or approved by the FDA. The laboratory is regulated under CLIA as qualified to perform high-complexity testing. This test is used for clinical purposes. It should not be regarded as investigational or for research. us Christen Gallardo MD LAB - BLOOD ORDERABLES Final Re sult UM SPECIAL DRUG/BGEN UM Special Drug/BGEN 500 [facility], Room [address] [place] [phone], [facility] * Sex Hormone Binding Globulin (06/23/2024 9:02 AM ASSURANCE OFFICER) Sex Hormone Binding Globulin 28 11 - 80 nmol/L 06/23/2024 4:30 PM ASSURANCE OFFICER [facility] Blood BLOOD SPECIMEN / Unknown Venipuncture / Unknown 06/23/2024 9:02 AM ASSURANCE OFFICER 06/23/2024 9:02 AM ASSURANCE OFFICER Result [facility] Christen Gallardo MD LAB - BLOOD ORDERABLES Final Re sult U LABORATORY [facility] [place] [facility] 500 [facility], [address] [phone] * Hepatic panel (Albumin, ALT, AST, Bili, Alk Phos, TP) (06/23/2024 9:02 AM ASSURANCE OFFICER) [facility] Protein Total 7.2 6.4 - 8.3 g/dL 06/23/2024 4:27 PM ASSURANCE OFFICER [facility] Albumin 4.3 3.5 - 5.2 g/dL 06/23/2024 4:27 PM ASSURANCE OFFICER [facility] Bilirubin Total 0.5 <=1.2 mg/dL 06/23/2024 4:27 PM ASSURANCE OFFICER [facility] Alkaline Phosphatase 50 40 - 150 U/L 06/23/2024 4:27 PM ASSURANCE OFFICER [facility] AST 31 0 - 45 U/L 06/23/2024 4:27 PM ASSURANCE OFFICER [facility] ALT 26 0 - 70 U/L 06/23/2024 4:27 PM ASSURANCE OFFICER [facility] Bilirubin Direct <0.20 0.00 - 0.30 mg/dL 06/23/2024 4:27 PM ASSURANCE OFFICER [facility] Blood BLOOD SPECIMEN / Unknown Venipuncture / Unknown 06/23/2024 9:02 AM ASSURANCE OFFICER 06/23/2024 9:02 AM ASSURANCE OFFICER us Christen Gallardo MD LAB - BLOOD ORDERABLES Final Re sult U LABORATORY [facility] [place] [facility] 500 [facility], [address] [phone] * Hemoglobin and hematocrit (06/23/2024 9:02 AM ASSURANCE OFFICER) Hemoglobin 16.3 13.3 - 17.7 g/dL 06/23/2024 9:04 AM ASSURANCE OFFICER LV LABORATORY Hematocrit 48.4 40.0 - 53.0 % 06/23/2024 9:04 AM ASSURANCE OFFICER [facility] Blood BLOOD SPECIMEN / Unknown Venipuncture / Unknown 06/23/2024 9:02 AM ASSURANCE OFFICER 06/23/2024 9:02 AM ASSURANCE OFFICER us Christen Gallardo MD LAB - BLOOD ORDERABLES Final Re sult LV LABORATORY [facility] [address] [facility] (no room number, 1st floor of clinic) [place] [address], [facility] * Comprehensive metabolic panel (11/21/2023 10:11 AM [...] BLOOD ORD ERABLES Final Result [facility] LABORATORY [facility] 500 [facility] J [facility], [address] [place] [address], [facility] * Colonoscopy - HIM Scan (10/09/2023 12:00 [...] Final Result SPECIALTY CORE/PROT/ENDO Specialty Core/Prot/Endo 500 [facility], [address] [phone] * HIV Antigen Antibody Combo [[id number]] (08/12/2019 7:06 AM ASSURANCE OFFICER) HIV Antigen Antibody Combo Nonreactive NR^Nonrea ctive 08/12/2019 2:49 PM ASSURANCE OFFICER [facility] Comment:HIV-1 p24 Ag & HIV-1 /HIV-2 Ab Not Detected Blood specimen (specimen) 08/12/2019 7:06 AM ASSURANCE OFFICER 08/12/2019 7:08 AM ASSURANCE OFFICER us Hill Spears MD LAB - BLOOD ORDERAB[place] [address] from Last 3 Months or Most Recently Relevant to Health Maintenance Insurance [facility] COMM[facility]CIAL [facility] Care Teams Platinum And Palladium Kettle Tender Relationship Specialty Start Date End Date Tatyana Dwyer MD [address] [place] [address] PCP - General Internal Medicine 06/01/19 Annalee Toussaint, DUSTYC [address] [address] Physician Developer Automatic Physician Developer Automatic - Medical 07/15/19 Cr Fung MD [address] [place] [address] [address] [place] [address] Urology 07/15/19 Bianca Rubalcava, RODNEY Specialty Platform Man Urology 07/15/19 Wm Ryan MD [address] [place] [id number] Resident Student in organized health care education/training program 02/01/21 Tatyana Dwyer MD [address] [place], [place] [address] Assigned PCP 02/05/21 Christen Gallardo [place] [address] Assigned Endocrinology Provider 11/18/21 Ana Fink MD [address] [place] [address] Fellow Gastroenterology 10/16/22
== END 2024-07-16 19:57 | disposition home or self-care (01) ==
PROVIDERS: Emergency Provider Emergency Medicine
DX: L03.115 Cellulitis of right lower limb (principal)
CPT/HCPCS: 93971; 99283

== ENCOUNTER 2024-11-13 09:09 | Emergency (ER) | payer OTHER, SELFPAY ==
--- OUTSIDE RECORDS SUMMARY | 2024-10-19 11:30 | XMS_ITS | Encounter Summary ---
Author Organization [facility] Address Formerly [facility] [place] [address] Care Team Providers Care Map Colorer Name Role Phone Tatyana Dwyer MD Primary Care P rovider Annalee Toussaint-C Unavailable [phone] Cr Fung MD Unavailable Bianca Rubalcava RN Unavailable [phone] Wm Ryan MD Unavailable Tatyana Dwyer MD Unavailable Christen Gallardo MD Unavailable [phone] Ana Fink MD Unavailable Reason for Referral * Diagnostic Imaging MRI (Routine) - Closed Specialty Diagnoses / Procedures Referred By Contac t Referred To Contact Radiology. Diagnoses Pituitary adenoma (H) Procedures MR Brain w/o & w Contrast Christen Gallardo MD [address] [address] Phone: tel: fax: [facility] [address] [place] [address] Phone: tel: fax: Referral ID Status Reason Start Date Expiration Date Visits Re quested Visits Authorized [id number] Closed 08/18/2024 08/18/2025 1 1 Reason for Visit * Diagnostic Imaging MRI (Routine) - Closed Specialty Diagnoses / Procedures Referred By Sindhu t Referred To Contact Radiology. Diagnoses Pituitary adenoma (H) Procedures MR Brain w/o & w Contrast Christen Gallardo MD [address] [address] Phone: tel: fax: [facility] [address] [place] [address] Phone: tel: fax: Referral ID Status Reason Start Date Expiration Date Visits Re quested Visits Authorized [id number] Closed 08/18/2024 08/18/2025 1 1 Encounter Details Date Type Department Care Team (Latest Contact Info) Description 10/19/2024 11:30 AM CDT - 10/19/2024 11:59 PM CDT Hospital Encounter [facility] [address] [place] [address] Christen Gallardo MD [address] [id number] Pituitary adenoma (H) Discharge Disposition: Home or Self Care Social History Tobacco Use Types Packs/Day Years [...] re latives? 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 Gender Identity Male 12/19/2020 9:52 PM CDT Sexual Orientation Straight 12/19/2020 9: 52 PM CDT Travel History Travel Start Travel End [place] 10/12/2024 10/14/2024 documented as of this encounter Medications at Time of Discharge hydrochlorothiaz lucas (HYDRODIURIL) 25 MG tabletIndication s:Tachycardia,HT N, goal below 140/90 TAKE 1 TO 2 TABLETS BY MOUTH DAILY 140 tablet 3 11/21/2023 lisinopril (ZESTRIL) 20 MG tabletIndication s:HTN, goal below 140/90 Take 1 tablet (20 mg) by mouth daily 90 tablet 3 11/21/2023 MULTIPLE VITAMIN PO nebivolol (BYSTOLIC) 2.5 MG tabletIndication s:Tachycardia,HT N, goal below 140/90 Take 1 tablet (2.5 mg) by mouth daily. 90 tablet 07/02/2024 omega 3 1000 MG CAPS Take 1 g by mouth daily 90 capsule 11/25/2015 Probiotic Product (PROBIOTIC ADVANCED PO) Take by mouth daily Syringe/Needle, Disp, 22G X 1 3 ML MISCIndications: Hypogonadism in male 1 each every 14 days. 7 each 3 08/18/2024 tadalafil (CIALIS) 10 MG tabletIndication s:Erectile dysfunction, unspecified erectile dysfunction type Take 1 tablet by mouth daily as needed, take pre intercourse as directed. 30 tablet 2 08/18/2024 testosterone cypionate (DEPOTESTOSTERON E) 200 MG/ML injectionIndicat ions:Hypogonadis m in male Inject 0.75 mLs (150 mg) into the muscle every 14 days. 2 mL 5 09/07/2024 tirzepatide-Weig ht Management (ZEPBOUND) 7.5 MG/0.5ML prefilled penIndications:C lass 3 severe obesity with serious comorbidity and body mass index (BMI) of 45.0 to 49.9 in adult, unspecified obesity type (H),Hypogonadism in male Inject 0.5 mLs (7.5 mg) subcutaneously every 7 days. 2 mL 3 09/30/2024 documented as of this encounter Miscellaneous Notes * Result Encounter Note - Christen Gallardo MD - 10/19/2024 11:59 PM CDT Hello - Here are my comments about the recent results. Small/stable adenoma. Can discuss more in January Please let us know if you have any questions or concerns. Regards, Christen Gallardo MD documented in this encounter Plan of Treatment Upcoming Encounters Date Type Department Care Team (Late st Contact Info) Description 11/20/2024 9:30 AM CDT Office Visit [address] [place] [phone] Tatyana Dwyer MD [address], [place] [address] 02/10/2025 11:30 AM CDT Office Visit [address] [place] [phone] Christen Gallardo MD [address] [place] [address] documented as of this encounter Procedures Procedure Name Priority Date/Time Associated Diagnosis Comments MR BRAIN W/O & W CONTRAST Routine 10/19/2024 12:29 PM CDT Pituitary adenoma (H) documented in this encounter Results * MR Brain w/o & w Contrast (10/19/2024 12:29 PM CDT) Anatomical Region Laterality Modality Head, SUBRAD MR NEURO, UMP MR NEURO, RAD MR Magnetic Resonance 10/19/2024 12:2 9 PM CDT Impressions 10/20/2024 9:45 AM CDT IMPRESSION: 1. Tiny area of heterogenous, predominantly hypoenhancing signal along the posterior aspect of the pituitary gland is slightly decreased in size/conspicuity from study performed in October 2022. 2. No acute intracranial abnormality. Narrative 10/20/2024 9:45 AM CDT EXAM: MR BRAIN W/O and W CONTRAST LOCATION: [facility] DATE: 10/19/2024 INDICATION: Pituitary adenoma COMPARISON: Pituitary protocol brain MRI: 10/22/2022. CONTRAST: 14mL Gadavist TECHNIQUE: Multiplanar multisequence head MRI without and with intravenous contrast including dedicated imaging of the sella. FINDINGS: SELLA: Tiny area of heterogenous, predominantly hypoenhancing signal along the posterior aspect of the pituitary gland is slightly decreased in size/conspicuity from study performed in October 2022 (series [id number]/image 8 and series [id number]/image 8). No mass effect. Normal pituitary stalk and suprasellar structures including the optic chiasm. Normal cavernous sinuses. INTRACRANIAL CONTENTS: No restricted diffusion to suggest acute or subacute infarct. No mass, acute hemorrhage, or extra-axial fluid collections. Normal brain parenchymal signal. Normal ventricles and sulci. Normal position of the cerebellar tonsils. No pathologic contrast enhancement. OTHER: Accounting for technique no additional abnormalities identified. Procedure Note Manish Beltran MD - 10/20/2024 EXAM: MR BRAIN W/O and W CONTRAST LOCATION: [facility] DATE: 10/19/2024 INDICATION: Pituitary adenoma COMPARISON: Pituitary protocol brain MRI: 10/22/2022. CONTRAST: 14mL Gadavist TECHNIQUE: Multiplanar multisequence head MRI without and with intravenouscontrast including dedicated imaging of the sella. FINDINGS: SELLA: Tiny area of heterogenous, predominantly hypoenhancing signal alongthe posterior aspect of the pituitary gland is slightly decreased insize/conspicuity from study performed in October 2022 (series [id number]/image 8and series [id number]/image 8). No mass effect. Normal pituitary stalk and suprasellar structures including theoptic chiasm. Normal cavernous sinuses. INTRACRANIAL CONTENTS: No restricted diffusion to suggest acute orsubacute infarct. No mass, acute hemorrhage, or extra-axial fluidcollections. Normal brain parenchymal signal. Normal ventricles and sulci.Normal position of the cerebellar tonsils. No pathologic contrast enhancement. OTHER: Accounting for technique no additional abnormalities identified. IMPRESSION: 1. Tiny area of heterogenous, predominantly hypoenhancing signal alongthe posterior aspect of the pituitary gland is slightly decreased insize/conspicuity from study performed in October 2022. 2. No acute intracranial abnormality. Christen Gallardo MD IMG MRI ORDERABLES Final Result documented in this encounter Visit Diagnoses Diagnosis Pituitary adenoma (H) Benign neoplasm of pituitary gland and craniopharyngeal duct (pouch) documented in this encounter Administered Medications Inactive Administered Medications - up to 3 most recent administrations Medication Order MAR Action Action Date Dose Rate Site gadobutrol (GADAVIST) injection 14 mL 14 mL, Intravenous, ONCE, On Sat10/19/24 at 1200, For 1 dose, Supplied by, and administered by MRI. $Given 10/19/2024 11:42 AM CDT 14 mLs sodium chloride (PF) 0.9% PF flush 100 mL 100 mL, Intravenous, ONCE, On Sat10/19/24 at 1200, For 1 dose $Given 10/19/2024 11:42 AM CDT 100 mLs documented in this encounter Care Teams Map Colorer Relationship Specialty Start Date End Date Tatyana Dwyer MD [address], [place] [address] PCP - General Internal Medicine 06/01/19 Annalee Toussaint PA-C [address] [facility] [address] [place], [place] [address] Physician Computer Information Systems Instructor Physician Computer Information Systems Instructor - Medical 07/15/19 Cr Fung MD [address] [facility] [address] [place], [place] [address] Urology 07/15/19 Bianca Rubalcava, RN Specialty Medical Transcription Supervisor Urology 07/15/19 Wm Ryan MD [address] [place] [address] Resident Student in [facility] care education/training program 02/01/21 Tatyana Dwyer MD [address], [place] [address] Assigned PCP 02/05/21 Christen Gallardo MD [address] [address] Assigned Endocrinology Provider 11/18/21 Ana Fink MD [address] [place] [address] Fellow Gastroenterology 10/16/22 documented as of this encounter
--- OUTSIDE RECORDS SUMMARY | 2024-11-12 08:50 | XMS_ITS | Encounter Summary ---
Author Organization [facility] Address [address], [place] [address] Care Team Providers Care Marketing Communications Assistant Name Role Phone Michelet Velasco MD Primary Care Provid er Reason for Referral * Procedure/Equipment (Routine) - Authorized Specialty Diagnoses / Procedures Referred By Contac t Referred To Contact Diagnoses Left lumbar radiculopathy Procedures FL C Arm 20 Pain Management Robson Irvin DO [address] [place] [address] Phone: tel: fax: Referral ID Status Reason Start Date Expiration Date V isits Requested Visits Authorized [id number] Authorized 11/12/2024 02/11/2026 1 1 * Consult/Transfer Care (Routine) - New Request Specialty Diagnoses / Procedures Referred By Sindhu vee Referred To Contact Diagnoses Left lumbar radiculopathy Robson Irvin DO [address] [place] [address] Phone: tel: fax: Referral ID Status Reason Start Date Expiration Date V isits Requested Visits Authorized [id number] New Request 11/12/2024 02/11/2026 1 1 Scheduling Instructions Your provider has recommended an appointment with [facility]. You can quickly make your appointment online at [employer]/schedule. You can also call [phone] for help scheduling your appointment. We suggest you call your health insurance company about your coverage and benefits for this appointment. Question Answer Appointment Urgency? Non-Urgent [facility] evaluation for possible lumbar surgery? No - f/u post injection Comments 2 week follow up post TFESI ref Dr Irvin * Therapies (Routine) - New Request Specialty Diagnoses / Procedures Referred By Sindhu vee Referred To Contact Diagnoses Left lumbar radiculopathy Robson Irvin DO [address] [place] [address] Phone: tel: fax: Referral ID Status Reason Start Date Expiration Date V isits Requested Visits Authorized [id number] New Request 11/12/2024 11/12/2025 999 999 Scheduling Instructions Your clinician recommended an appointment with [facility]. You can quickly schedule your appointment by signing in to your online account at [email or web address] or through the text message you may have received. You can also make an appointment by calling [phone]. We suggest you call your health insurance company about your coverage and benefits for this appointment. Question Answer Appointment Urgency? Non-Urgent Requested Services Evaluate and treat Reason for Visit General Physical Therapy May use saline for irrigation or cleansing Yes dexamethasone use Yes May check glucose per protocol (see policy link below) or if patient has symptoms? Yes Reason for Visit * Reason Comments Back Pain Low back pain x 3 da ys. Wonders if herniated disc as has had this before. Doing yard work all week-end. Encounter Details Date Type Department Care Team (Latest Contact Info) Description 11/12/2024 8:50 AM CDT Office Visit [facility] [place] [address] [place] [address] Robson Irvin DO [address] [place], [place] [address] Left lumbar radiculopathy (Primary Dx) Social History Tobacco Use Types Packs/Day Years Used Date Smoking Tobacco: Never Smokeless Tobacco: Never Alcohol Use Standard Drinks/Week Comments Yes 0 (1 standard drink = 0.6 oz pur e alcohol) occasional Sex and Gender Information Value Date Recorded Sex Assigned at Not on file Legal Sex Male 5:58 AM CDT Gender Identity Not on file Sexual Orientation Not on file documented as of this encounter Last Filed Vital Signs Vital Sign Reading Time Taken Comments Blood Pressure - - Pulse - - Temperature 36.7 C (98.1 F) 11/12/2024 9:06 AM CDT Respiratory Rate - - Oxygen Saturation - - Inhaled Oxygen Concentration - - Weight 132 kg (291 lb) 11/12/2024 9:05 AM CDT Height 182.9 cm (6') 11/12/2024 9:05 AM CDT Body Mass Index 39.47 11/12/2024 9:05 AM CDT documented in this encounter Patient Instructions * Patient Instructions* Jaleesa Ram, ATC - 11/12/2024 8:50 AM CDT Thank you for choosing [facility] for your health care visit today. If you have any questions regarding your visit or next steps, please contact us at [phone]. Robson Irvin, Medication Requests: Prescriptions are filled on Weekdays before 3:00PM For all medication refills: Request a refill using MyChart or contact your Pharmacy Paperwork Requests: FMLA or disability paperwork can be faxed to: [phone] Please allow 7-10 business days for completion of all paperwork. [employer] Services: E-mail Address: [email or web address] What is Know Your Cost? Know Your Cost is a service for patients and patient/members to call and receive personalized cost information and estimates across our care group. The phone number is (COST) Saturday - Saturday 8 AM to 5 PM To request copies of your medical records, call: [phone] (option 4) Diagnosis: Low back pain Plan: Follow Up: As needed if symptoms are not improving or worsen. Physical Therapy: Schedule your physical therapy appointment at the dental front office assistant or call [phone]. Medications: Over the Counter Medications: Acetaminophen (Tylenol) Lidocaine Patches taken per bottle instructions unless specified by physician. Your physician has sent a prescription for Prednisone and Methocarbamol (Robaxin) to your preferredpharmacy. Take this medication as instructed. Please be sure to review all information provided on your prescription regarding this drug and any potential side effects you may experience. Ask your pharmacist if any questions arise. RICE: - Utilize ice over the injured area (ice bag or bag of frozen vegetables) several times per day for up to 20 minutes at a time. Be sure to place a cold wet wash cloth or towel between the ice and your skin. - Modify activities as instructed by your physician - Heat Prednisone - pick and shovel worker at pharmacy - take in the morning with food - do not take Ibuprofen (Advil/Motrin) or naproxen (Aleve) with this medication - Tylenol ok Methocarbamol - pick and shovel worker at pharmacy - take at bedtime for sleeping (causes drowsiness) - do not drink alcohol or drive a vehicle while taking this medication Injection(s): You will be scheduled for a lumbar spine guided injection. Your provider has ordered an injection that requires Breanna Chavez to check with your insurance to see if prior authorization is needed. You will be contacted to schedule after your prior authorization has been processed. Your doctor has recommended an JEFFERSON (Epidural Steroid Injection) for your pain. Please call [phone] to schedule a follow up 2 weeks after the injection with one of our spine providers. You will be contacted by our scheduling team to set up JEFFERSON injection. documented in this encounter Progress Notes * Robson Irvin DO - 11/12/2024 8:50 AM CDT Subjective History of Present Illness Kade Palacio is a 39 year old male with a history of chronic low back pain who presents with a recurrence of low back pain. He experiences a sudden onset of low back pain that started two days ago. 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 He describes the pain as constant low back pain, primarily on the left side, which worsens with transitions such as sitting, standing, and lying down. Significant discomfort occurs when sitting on the toilet and getting into a car. Bilateral leg weakness is present, more pronounced on the left, along with numbness in theleft thigh. Daily activities, including [employer] workouts, have become challenging over the past twodays. He has a history of a previous disk herniation (last MRI 08/2023), previously treated with an epidural steroid injection in September 2023, which resolved symptoms at that time. Back injuries typically occur every three to five years, with the last injury about a year ago. Self-management with Tylenol, ibuprofen, icing, and rest has not provided significant relief. Methocarbamol taken last night was effective for sleep. He has a history of physical therapy and retains exercises from past sessions, though he feels a refresher might be beneficial. 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 Objective Temp 36.7 ??C (98.1 ??F) (Oral) Ht 1.829 m (6') Wt 132 kg (291 lb) BMI 39.47 kg/m?? Physical Exam GEN: This is a well-appearing 39 y.o. male. Appears uncomfortable, standing in exam room on initialpresentation. MUSCULOSKELETAL: No point tenderness to midline thoracolumbar spine. Tender over left lumbar paraspinal musculature. No SI joint tenderness. Discomfort with lumbar flexion and pain with left side bending. 5/5 muscle strength in lower extremities bilaterally. NEUROLOGICAL: Strongly positive slump test on the left. +2/4 patellar and Achilles reflexes. Sensation grossly intact to lower extremities. Results RADIOLOGY MRI lumbar spine (08/29/23): IMPRESSION: 1. Slightly decreased inferiorly extending left central disc extrusion at L4-L5 with posterior displacement of the descending left L5 nerve root. 2. Severe left and moderate to severe right neural foraminal stenosis at L5-S1. 3. Other degenerative findings as above without high-grade spinal canal stenosis. Assessment & Plan Left Lumbar radiculopathy Recurrent left-sided lumbar radiculopathy with increased severity, positive slump test indicating nerve root irritation. Previous L4-L5 disc herniations responded to epidural steroid injection. We discussed conservative management (oral medications, PT, etc). Patient states that due to his significant increase in pain, he is interested in a repeat JEFFERSON. - Prescribed 7-day prednisone (40 mg daily x 7 days) for acute relief. - Prescribed 500 mg methocarbamol for nighttime use. - Ordered physical therapy referral, arranged same-day session if possible. - Ordered transforaminal epidural steroid injection to the left L5 nerve root level, patient willing to pay if not covered by insurance. - Follow up in spine clinic after JEFFERSON to discuss next steps. documented in this encounter Plan of Treatment Upcoming Encounters Date Type Department Care Team (Late st Contact Info) Description 11/17/2024 8:30 AM CDT Appointment [facility] [address] [place] [phone] Robson Irvin DO [address] [place], [place] [address] 1, Jacoby Interiano Rn, DO [address] [place], [place] [id number] Scheduled Orders Name Type Priority Associated Diagnoses Orde r Schedule FL C Arm 20 Pain Management Imaging New Routine Left lumbar radiculopathy Expected: 11/12/2024 (Approximate), Expires: 11/12/2025 Scheduled Referrals Name Type Priority Associated Diagnoses Orde r Schedule Physical Therapy Referral Routine Left lumbar radiculopathy Ordered: 11/12/2024 Spine-Medical Consult Adult Referral Routine Left lumbar radiculopathy Ordered: 11/12/2024 documented as of this encounter Visit Diagnoses Diagnosis Left lumbar radiculopathy- Primary Thoracic or lumbosacral neuritis or radiculitis, unspecified documented in this encounter Care Teams Marketing Communications Assistant Relationship Specialty Start Date End Date Michelet Velasco MD [address] [place] [address] PCP - General 10/20/13 documented as of this encounter
--- OUTSIDE RECORDS SUMMARY | 2024-11-12 10:30 | XMS_ITS | Encounter Summary ---
Author Organization [facility] Address [address] [place] [address] Care Team Providers Care Tear Down Matcher Name Role Phone Michelet Velasco MD Primary Care Provid er Reason for Visit * Reason Comments Spine Lumbar * Therapies (Routine) - New Request Specialty Diagnoses / Procedures Referred By Sindhu t Referred To Contact Diagnoses Left lumbar radiculopathy Robson Irvin, DO [address] [place] [address] Phone: tel: fax: Referral ID Status Reason Start Date Expiration Date V isits Requested Visits Authorized [id number] New Request 11/12/2024 11/12/[phone] Encounter Details Date Type Department Care Team (Late st Contact Info) Description 11/12/2024 10:30 AM CDT Office Visit Physical Therapy at [facility] [place] [address] [place] [address] Leighann Pemberton, PT [address] [facility] [address] Acute left-sided low back pain, unspecified whether [...] Spine Evaluation/Plan of Care Visit Number: 1 [facility] Initial Certification Period: 11/12/2024 - 02/10/25 Referring Provider: Robson Irvin Referring Diagnosis: L lumbar radiculopathy Orders: Evaluate & treat Precautions/Contraindications: none noted Date of Onset: 11/10/24 Standardized Functional Score at initial evaluation: not given PHQ-2 Score: not given History: Patient [facility] with complaints of L sided low back pain. Possibly from working on [employer]-- many hours of work over Weekend, not [...] of Injury: over exertion with work at [employer] Aggravating factors: transitions, walking, sitting, bending over, [...] Morbid obesity with BMI of 45.0-49.9, adult ([facility]) Past Surgical History: Procedure Laterality Date [...] musculature TREATMENT TODAY: Physical Therapy Evaluation (CPT 84268): An evaluation was performed. The patient was determined tohave low complexity based on history, examination, clinical presentation of the patient and the PT's clinical decision making. The patient was educated on the condition, planned therapy intervention and expectations from treatment. Goals were a collaborative effort of the therapist and patient. Therapeutic Exercise (CPT 29073) x 15 minutes: Pt was instructed and demonstrated proper form in the following home exercise program: Access Code: [email or web address] Program Notes activity within symptom tolerance ice [...] 6-10 reps - Seated Flexion Stretch with French Ball - 2 x daily - 8-12 [...] patient to transfer from bed or chair, picker operator an object from the ground and sit, stand or walk for an extended period of time. Physical therapy is medically necessary to address the above listed deficits to return the patient to prior level of function. Barriers to Learning: none Rehab Prognosis: Excellent PLAN: Pt to follow-up at [facility] or . Planned Intervention/Education: Therapeutic Exercise, [...] Leighann Pemberton, PT 10:17 AM 11/12/2024 The recruiter account manager is completed by the therapist and the referring clinician's electronic signature certifies medical necessity for the plan above. Cosigned by Robson Irvin DO at 11/12/2024 11:50 AM CDT documented in this encounter Plan of Treatment Upcoming Encounters Date Type Department Care Team (Late st Contact Info) Description 11/17/2024 8:30 AM CDT Appointment [facility] [address] [place] [phone] Robson Irvin DO [address] [place] [address] 1, Jacoby Interiano Rn, DO [address] [place] [address] Scheduled Referrals Name Type Priority Associated Diagnoses Orde r Schedule Physical Therapy Referral Routine Left lumbar radiculopathy Ordered: 11/12/2024 documented as of this encounter Visit Diagnoses Diagnosis Acute left-sided low back pain, unspecified whether sciatica present- Primary documented in this encounter Care Teams Tear Down Matcher Relationship Specialty Start Date End Date Michelet Velasco MD [address] [place] [address] PCP - General 10/20/13 documented as of this encounter
--- OUTSIDE RECORDS SUMMARY | 2024-11-13 09:12 | XMS_ITS | Encounter Summary ---
Author Organization [facility] Address [address] [place] [address] Care Team Providers Care Natural Resource Manager Name Role Phone Tatyana Dwyer MD Primary Care P rolorettader Tatyana Dwyer MD Unavailable Annalee Toussaint-C Unavailable [phone] Cr Fung MD Unavailable [phone] Bianca Rubalcava RN Unavailable [phone] Keegan Montemayor MD Unavailable Un available Joselin Andrade PA-C Unavailable Steven Tatum MD Unavailable Jim Mark MD Unavailable [phone] Jaime Wood MD Unavailable [phone] Annalee Toussaint-C Unavailable [phone] Honey Jackson APRN, CNP Unavailable + [phone] Wm Ryan MD Unavailable Tatyana Dwyer MD Unavailable Amalia Agosto GC Unavailable [phone] Jaime Wood MD Unavailable [phone] Christen Gallardo MD Unavailable [phone] Ana Fink MD Unavailable Reason for Visit * Reason Onset Date Comments Call Back 10/02/2019 patient call ed about his visit on 10/05/2019, has an child at home with fever and cough, is concern about coming in. Encounter Details Date Type Department Care Team (Late st Contact Info) Description 10/02/2019 Telephone [facility] [address] [facility] [address] [phone] Jaime Wood MD [address] [facility] [address] [phone] Call Back (patient call ed about his [...] re latives? 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 No / Unsure 03/26/2023 8:50 PM CDT documented as of this encounter Miscellaneous Notes * Telephone Encounter - Kash Valente - 10/02/2019 11:14 AM CDT Reason for [...] Description 11/20/2024 9:30 AM CDT Office Visit [address] [place] [phone] Tatyana Dwyer MD [address] [place] [address] 02/10/2025 11:30 AM CDT Office Visit [address] [place] [phone] Christen Gallardo MD [address] [place] [address] documented as of this encounter Visit Diagnoses Not on filedocumented in this encounter Additional Health Concerns Infection Onset Date Last Indicated Resolved Time Rule Out COVID-19 10/25/2021 10/25/2021 10/26/2021 12:43 PM CDT COVID-19 10/25/2021 10/25/2021 11/15/2021 11:3 9 PM CDT documented as of this encounter Care Teams Natural Resource Manager Relationship Specialty Start Date End Date Tatyana Dwyer MD [address] [place] [address] PCP - General Internal Medicine 06/01/19 Tatyana Dwyer MD [address] [place] [address] Assigned PCP 05/31/19 10/15/20 Annalee Toussaint PA-C [address] [address] Physician Plumbing Manager Physician Plumbing Manager - Medical 07/15/19 Cr Fung MD [address] [place] [address] Urology 07/15/19 Bianca Rubalcava, RN Specialty Television [employer] Urology 07/15/19 Keegan Montemayor MD Assigned Heart and Vascular Provider 04/08/20 12/27/20 Joselin Andrade PA-C [address] [place] [address] Assigned Pediatric Specialist Provider 04/08/20 07/17/20 [place] [address] [place] [address] Assigned Surgical Provider 04/08/20 07/22/21 Jim Mark MD [address] [place] [address] Assigned Musculoskeletal Provider 04/08/20 02/11/21 Jaime Wood MD [address] [place] [address] [place] [address] Assigned Sleep Provider 04/08/2004/08 Annalee Toussaint PA-C [address] [place] [place] [address] Assigned OBGYN Provider 08/31/20 Honey Jackson APRN FRONT END WEB DESIGNER [address] [place] [address] Assigned PCP 10/16/20 02/04/21 Wm Ryan MD [address] [place] [address] Resident Student in organized health care education/training program 02/01/21 Tatyana Dwyer MD [address] [place] [address] Assigned PCP 02/05/21 Amalia Agosto GC [address] [place] [address] Assigned OBGYN Provider 05/07/21 07/15/21 Jaime Wood MD [address] [place] [place] [address] Assigned Sleep Provider 07/09/21 Christen Gallardo MD [address] [place] [address] Assigned Endocrinology Provider 11/18/21 Ana Fink MD [address] [place] [address] Fellow Gastroenterology 10/16/22 documented as of this encounter
--- OUTSIDE RECORDS SUMMARY | 2024-11-13 09:12 | XMS_ITS | Encounter Summary ---
Author Organization [facility] Address [address] [place] [address] Care Team Providers Care Cardiac Catheterization Technologist Name Role Phone Tatyana Dwyer MD Primary Care P rolorettader Tatyana Dwyer MD Unavailable Annalee Toussaint-C Unavailable [phone] Cr Fung MD Unavailable [phone] Bianca Rubalcava RN Unavailable [phone] Keegan Montemayor MD Unavailable Un available Joselin Andrade PA-C Unavailable [phone] Steven Tatum MD Unavailable Jim Mark MD Unavailable [phone] Jaime Wood MD Unavailable [phone] Annalee Toussaint-C Unavailable [phone] Honey Jackson APRN, CNP Unavailable + [phone] Wm Ryan MD Unavailable Tatyana Dwyer MD Unavailable Amalia Agosto GC Unavailable [phone] Jaime Wood MD Unavailable [phone] Christen Gallardo MD Unavailable [phone] Ana Fink MD Unavailable Encounter Details Date Type Department Care Team (Late st Contact Info) Description 09/04/2019 MyC Medical Advice [facility] Heart [facility] [address] [facility] [address] [place] [phone] Lorrie Ray RN Social History Tobacco Use [...] PM CDT 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 [address] [place] [address] Tatyana Dwyer MD [address] [place] [address] 02/10/2025 11:30 AM CDT Office Visit [facility] Specialty [facility] [address] [facility] [address] [place] [phone] Christen Gallardo MD 0[address] [place], [place] 566245 documented as of this encounter Visit Diagnoses Not on filedocumented in this encounter Additional Health Concerns Infection Onset Date Last Indicated Resolved Time Rule Out COVID-19 10/25/2021 10/25/2021 10/26/2021 12:43 PM CDT COVID-19 10/25/2021 10/25/2021 11/15/2021 11:3 9 PM CDT documented as of this encounter Care Teams Cardiac Catheterization Technologist Relationship Specialty Start Date End Date Tatyana Dwyer MD [address] [place] [address] PCP - General Internal Medicine 06/01/19 Tatyana Dwyer MD [address] [place] [address] Assigned PCP 05/31/19 10/15/20 Annalee Toussaint PA-C [address] [id number] Physician Song Lyricist Physician Song Lyricist - Medical 07/15/19 Cr Fung MD [address] [facility] [address] [place] [address] Urology 07/15/19 Bianca Rubalcava, RN Specialty Sheet Metal Fabricator Urology 07/15/19 Keegan Montemayor MD Assigned Heart and Vascular Provider 04/08/20 12/27/20 Joselin Andrade PA-C [address] [place] [address] Assigned Pediatric Specialist Provider 04/08/20 07/17/20 [place] [address] [place] [address] Assigned Surgical Provider 04/08/20 07/22/21 Jim Mark MD [address] [place] [address] 867355 Assigned Musculoskeletal Provider 04/08/20 02/11/21 Jaime Wood MD [address] [place], [place] 603465 Assigned Sleep Provider 04/08/2004/08 Annalee Toussaint, DU [address] [place], [place] 686085 Assigned OBGYN Provider 08/31/20 1 Honey Jackson APRN JOB PRINTER APPRENTICE [address] [place], [place] 615297 Assigned PCP 10/16/20 02/04/21 Wm Ryan MD [address] [place] [address] [id number] Resident Student in organized health care education/training program 02/01/21 Tatyana Dwyer MD [address] [place], [place] 077527 Assigned PCP 02/05/21 Amalia Agosto GC 2450 [place], [place] 902044 Assigned OBGYN Provider 05/07/21 07/15/21 Jaime Wood MD [address] [place] [address] [place] [address] Assigned Sleep Provider 07/09/21 Christen Gallardo MD [address] [place] [address] Assigned Endocrinology Provider 11/18/21 Ana Fink MD [address] [place] [address] Fellow Gastroenterology 10/16/22 documented as of this encounter
--- OUTSIDE RECORDS SUMMARY | 2024-11-13 09:12 | XMS_ITS | Encounter Summary ---
Author Organization [facility] Address [address] [place] [address] Care Team Providers Care Battery Assembler Name Role Phone Tatyana Dwyer MD Primary Care P rovider Annalee Toussaint PA-C Unavailable [phone] Cr Fung MD Unavailable Bianca Rubalcava RN Unavailable [phone] Wm Ryan MD Unavailable Tatyana Dwyer MD Unavailable Christen Gallardo MD Unavailable [phone] Ana Fink MD Unavailable Encounter Details Date Type Department Care Team (Latest Contact Info) Description 10/14/2024 Travel Social History Tobacco Use Types Packs/Day [...] re latives? 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 Gender Identity Male 12/19/2020 9:52 PM CDT Sexual Orientation Straight 12/19/2020 9: 52 PM CDT Travel History Travel Start Travel End [place] 10/12/2024 10/14/2024 documented as of this encounter Plan of Treatment Upcoming Encounters Date Type Department Care Team (Late st Contact Info) Description 11/20/2024 9:30 AM CDT Office Visit [address] [place] [phone] Tatyana Dwyer MD [address] [place], [place] 225767 02/10/2025 11:30 AM CDT Office Visit [address] [place] [phone] Christen Gallardo MD 6405 [place] [address] documented as of this encounter Visit Diagnoses Not on filedocumented in this encounter Care Teams Battery Assembler Relationship Specialty Start Date End Date Tatyana Dwyer MD [address] [place], [place] 565817 PCP - General Internal Medicine 06/01/19 Annalee Toussaint PA-C [address] [facility] 500 [place] [address] Physician Naturopathic Oncology Provider Physician Naturopathic Oncology Provider - Medical 07/15/19 Cr Fung MD [address] [place] [address] 394 [place] [address] Urology 07/15/19 Bianca Rubalcava, RN Specialty Wide Area Network Administrator Urology 07/15/19 Wm Ryan MD [address] [place] [address] 589805 Resident Student in [facility] health care education/training program 02/01/21 Tatyana Dwyer MD [address] [place] [address] Assigned PCP 02/05/21 Christen Gallardo MD [address] [place] [address] Assigned Endocrinology Provider 11/18/21 Ana Fink MD [address] [place] [address] 613125 Fellow Gastroenterology 10/16/22 documented as of this encounter
--- OUTSIDE RECORDS SUMMARY | 2024-11-13 09:12 | XMS_ITS | Encounter Summary ---
Author Organization [facility] Address [address] [place] [address] Care Team Providers Care Powder Press Operator Name Role Phone Tatyana Dwyer MD Primary Care P rovider Annalee Toussaint PA-C Unavailable [phone] Cr Fung MD Unavailable Bianca Rubalcava RN Unavailable [phone] Wm Ryan MD Unavailable Tatyana Dwyer MD Unavailable Christen Gallardo MD Unavailable [phone] Ana Fink MD Unavailable Encounter Details Date Type Department Care Team (Latest Contact Info) Description 11/05/2024 Travel Social History Tobacco Use Types Packs/Day [...] re latives? 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 Gender Identity Male 12/19/2020 9:52 PM CDT Sexual Orientation Straight 12/19/2020 9: 52 PM CDT Travel History Travel Start Travel End [place] 10/12/2024 10/14/2024 documented as of this encounter Plan of Treatment Upcoming Encounters Date Type Department Care Team (Late st Contact Info) Description 11/20/2024 9:30 AM CDT Office Visit [address] [place] [phone] Tatyana Dwyer MD [address] [place], [place] [address] 02/10/2025 11:30 AM CDT Office Visit [address] [place] [phone] Christen Gallardo MD 6[address] [place] [address] documented as of this encounter Visit Diagnoses Not on filedocumented in this encounter Care Teams Powder Press Operator Relationship Specialty Start Date End Date Tatyana Dwyer MD [address] [place], [place] 167627 PCP - General Internal Medicine 06/01/19 Annalee Toussaint PA-C [address] [facility] 500 [place] [address] Physician Chief Arson Division Physician Chief Arson Division - Medical 07/15/19 Cr Fung MD [address] [place] [address] 394 [place] [address] Urology 07/15/19 Bianca Rubalcava, RN Specialty Taxation Economist Urology 07/15/19 Wm Ryan MD [address] [place] [address] 406735 Resident Student in [facility] health care education/training program 02/01/21 Tatyana Dwyer MD [address] [place] [address] Assigned PCP 02/05/21 Christen Gallardo MD [address] [place] [address] Assigned Endocrinology Provider 11/18/21 Ana Fink MD [address] [place] [address] 383525 Fellow Gastroenterology 10/16/22 documented as of this encounter
--- OUTSIDE RECORDS SUMMARY | 2024-11-13 09:12 | XMS_ITS | Clinical Summary ---
Author Organization [facility] Address [facility] [place] [address] Care Team Providers Care Drafter Directional Survey Name Role Phone Tatyana Dwyer MD Primary Care P rovider Annalee Toussaint PA-C Unavailable Cr Fung MD Unavailable Bianca Rubalcava RN Unavailable [phone] Wm Ryan MD Unavailable Tatyana Dwyer MD Unavailable Christen Gallardo MD Unavailable [phone] Ana Fink MD Unavailable Allergies Active [...] daily 90 tablet 3 11/21/19 24 Active nebivolol (BYSTOLIC) 2.5 MG tabletIndicatio ns:Tachycardia, HTN, goal below 140/90 Take 1 tablet (2.5 mg) by mouth daily. 90 tablet 07/02/19 25 Active tadalafil (CIALIS) 10 MG tabletIndicatio ns:Erectile dysfunction, unspecified erectile dysfunction type Take 1 tablet by mouth daily as needed, take pre intercourse as directed. 30 tablet 2 08/19/19 25 Active Syringe/Needle, Disp, 22G X 1 3 ML MISCIndications :Hypogonadism in male 1 each every 14 days. 7 each 3 08/19/19 25 Active testosterone cypionate (DEPOTESTOSTERO NE) 200 MG/ML injectionIndica tions:Hypogonad ism in male Inject 0.75 mLs (150 mg) into the muscle every 14 days. 2 mL 5 09/08/19 25 Active tirzepatide-Dirk ght Management (ZEPBOUND) 7.5 MG/0.5ML prefilled penIndications: Class 3 severe obesity with serious comorbidity and body mass index (BMI) of 45.0 to 49.9 in adult, unspecified obesity type (H),Hypogonadis m in male Inject 0.5 mLs (7.5 mg) subcutaneously every 7 days. 2 mL 3 10/01/19 25 Active Active Problems Problem Noted Date Diagnosed [...] (12/02/2019): Added automatically from request for surgery [id number] Family history of acute heart failure ( [...] - small hemorrh agic cyst as per [place] CT 08/05/2017 08/05/2017 Essential hypertension, benign 11/25/2015 08/05/2017 Encounters Date Type Department Care Team Description 11/05/2024 Travel 11/02/2024 MyC Medical Advice [address] [place] [phone] Tatyana Dwyer MD Orders (lab) 10/19/2024 11:30 AM CDT - 10/19/2024 11:59 PM CDT Hospital Encounter [facility] [address] [facility] [address] [place] [phone] Christen Gallardo MD Pituitary adenoma (H) Discharge Disposition: Home or Self Care 10/19/2024 Travel 10/14/2024 Travel 09/10/[address] [place] [phone] Christen Gallardo MD Prior Auth - Medication (tirzepatide-Weight Management (ZEPBOUND) 5 MG/0.5ML prefilled pen) 09/06/2024 MyC Medical Advice [address] [place] [address] Christen Gallardo MD Class 3 severe obesity with serious comorbidity and body mass index (BMI) of 45.0 to 49.9 in adult, unspecified obesity type (H); Hypogonadism in male 08/18/2024 2:00 PM TUFTING MACHINE FIXER Virtual Visit [address] [place] [address] Christen Gallardo MD Hypogonadism in male (Primary Dx); Erectile dysfunction, unspecified erectile dysfunction type; Class 3 severe obesity with serious comorbidity and body mass index (BMI) of 45.0 to 49.9 in adult, unspecified obesity type (H); Pituitary adenoma (H) 08/18/2024 Refill [facility] Specialty [address] [place] [address] Christen Gallardo MD Medication Refill from Last 3 Months Immunizations Immunization Administration Dates Next Due COVID-19 MONOVALENT 12+ (Pfizer) 05/25/2021,10/16,10/18/2020 Flu, Unspecified 02/16/2023,02/18/2020 Influenza (IIV3) PF 02/27/2021,,03/03/2017,03/06,02/25/2012,02/18/2011,04/02/2010 Influenza (prior to 2023) 01/18/2015 Influenza Vaccine [...] re latives? Twice a week 11/16/2023 Attends [employer] Not on file 11/15 Active Member [...] Answer Date Recorded PHQ-2 Score 0 08/18/2024 [facility] Occupat ional Health - Occupational Stress [...] PM CDT Legal Sex Male 3:08 AM TUFTING MACHINE FIXER Gender Identity Male 12/19/2020 9:52 PM CDT Sexual Orientation Straight 12/19/2020 9: 52 PM CDT Travel History Travel Start Travel End [place] 10/12/2024 10/14/2024 Last Filed Vital Signs Vital Sign Reading [...] Description 11/20/2024 9:30 AM CDT Office Visit [facility] [address] [place] [phone] Tatyana Dweyr MD [address] [place], [place] [address] 02/10/2025 11:30 AM CDT Office Visit [facility] [address] [facility] [address] [place] [address] Christen Gallardo MD [address] [place] [address] Health Maintenance Due Date Last Done Comments CT COLONOGRAPHY 1985 FIT 1985 FLEX SIG 1985 sDNA (Cologuard) 1985 HEPATITIS B VACCINE (1 of 3 - 19+ 3-dose series) 2004 ANNUAL REVIEW OF HM ORDERS 06/21/2023 06/21/2022 BMP 11/20/2024 11/21/2023, 03/17, 12/03/2022, Additional history exists YEARLY PREVENTIVE VISIT 11/20/2024 11/21/19, 01/26/2021, 08/12/2019, Additional history exists DIABETES SCREENING 11/20/2026 11/21/2023, 0 11/21/2023, 04/02/2023, Additional history exists COLONOSCOPY 10/08/2028 10/09/2023, 09/16, 07/17/2018, Additional history exists COLORECTAL CANCER SCREENING 10/08/2028 ADVANCE CARE PLANNING 11/20/2028 11/21/2023 , 01/26/2021, 01/26/2021 (Declined) DTAP/TDAP/TD VACCINE (3 - Td or Tdap) 11/26/2031 11/25/2021, 09/27/2010 ZOSTER VACCINE (1 of 2) 08/31/2035 MENINGITIS VACCINE Aged Out 07/06/2003 No longer eligible based on patient's age to complete this topic HIV SCREENING Completed 08/12/2019 HEPATITIS C SCREENING Completed 12/03/2022, 020 INFLUENZA VACCINE Completed 06/03/2024, , 02/16/2023, Additional history exists COVID-19 VACCINE Completed 06/20/2024, , 03/30/2022, Additional history exists PHQ-2 (once per calendar year) Completed 08/18/2024, 11/21/2023, 06/21/2022, Additional history exists HPV VACCINE Aged Out No longer eligi ble based on patient's age to complete this topic PNEUMOCOCCAL VACCINE: PEDIATRICS (0 to 5 YEARS) AND AT-RISK PATIENTS (6 to 49 YEARS) Aged Out No longer eligible based on patient's age to complete this topic Procedures Procedure Name Priority Date/Time Associated Diagnosis Comments MR BRAIN W/O & W CONTRAST Routine 10/19/2024 12:29 PM CDT Pituitary adenoma (H) COMPREHENSIVE METABOLIC PANEL Routine 11/21/2023 10:11 AM CDT Routine general medical examination at a health care facility COLONOSCOPY - HIM SCAN 12:00 AM CDT HEPATITIS C SCREEN REFLEX TO HCV RNA QUANT AND GENOTYPE Routine 12/03/2022 8:43 AM CDT LFT elevation HIV ANTIGEN ANTIBODY COMBO Routine 08/12/2019 7:06 AM TUFTING MACHINE FIXER Encounter for preventive health examination from Last 3 Months or Most Recently Relevant to Health Maintenance Results * MR Brain w/o & w [...] MR BRAIN W/O and W CONTRAST LOCATION: [facility] DATE: 10/19/2024 INDICATION: Pituitary adenoma COMPARISON: Pituitary protocol brain MRI: 10/22/2022. CONTRAST: 14mL Gadavist TECHNIQUE: Multiplanar multisequence head MRI without and with intravenous contrast including dedicated imaging of the sella. FINDINGS: SELLA: Tiny area of heterogenous, predominantly hypoenhancing signal along the posterior aspect of the pituitary gland is slightly decreased in size/conspicuity from study performed in October 2022 (series [id number]/image 8 and series [id number]/image 8). No mass effect. Normal pituitary stalk [...] MR BRAIN W/O and W CONTRAST LOCATION: [facility] DATE: 10/19/2024 INDICATION: Pituitary adenoma COMPARISON: Pituitary protocol brain MRI: 10/22/2022. CONTRAST: 14mL Gadavist TECHNIQUE: Multiplanar multisequence head MRI without and with intravenouscontrast including dedicated imaging of the sella. FINDINGS: SELLA: Tiny area of heterogenous, predominantly hypoenhancing signal alongthe posterior aspect of the pituitary gland is slightly decreased insize/conspicuity from study performed in October 2022 (series [id number]/image 8and series [id number]/image 8). No mass effect. Normal pituitary stalk [...] No acute intracranial abnormality. Christen Gallardo MD [facility] MRI ORDERABLES Final Result * Comprehensive metabolic panel (11/21/2023 10:11 AM [...] BLOOD ORD ERABLES Final Result [facility] [place] [facility] [address] [facility], [address] [address] * Colonoscopy - HIM Scan (10/09/2023 12:00 AM CDT) 10/09/2023 us Provider Outside PROCEDURES Final Result * Hepatitis C Screen Reflex to HCV RNA Quant and Genotype (12/03/2022 8:43 AM CDT) Hepatitis C Antibody Nonreactive Nonreactive 12/03/2022 5:34 PM CDT [facility] CORE/PROT/EN DO Blood BLOOD SPECIMEN / Unknown Venipuncture / Unknown 12/03/2022 8:43 AM CDT 12/03/2022 8:49 AM CDT Narrative [facility] CORE/PROT/ENDO - 12/03/2022 5:34 PM CDT Assay performance characteristics have not been established for newborns, infants, and children. us Tatyana Dwyer MD LAB - BLOOD ORD ERABLES Final Result [facility] CORE/PROT/ENDO [facility] Core/Prot/Endo [address] [facility], Room [address] [phone] * HIV Antigen Antibody Combo [[id number]] (08/12/2019 7:06 AM TUFTING MACHINE FIXER) HIV Antigen Antibody Combo Nonreactive NR^Nonrea ctive 08/12/2019 2:49 PM TUFTING MACHINE FIXER [facility] Comment:HIV-1 p24 Ag & HIV-1 /HIV-2 Ab Not Detected Blood specimen (specimen) 08/12/2019 7:06 AM TUFTING MACHINE FIXER 08/12/2019 7:08 AM TUFTING MACHINE FIXER us Hill Spears MD LAB - BLOOD ORDERABLES Final Result [facility] [address] [place] [address] from Last 3 Months or Most Recently Relevant to Health Maintenance Insurance [employer]CIAL [facility] COMMERCIAL Care Teams Drafter Directional Survey Relationship Specialty Start Date End Date Tatyana Dwyer MD [address] [place] [address] PCP - General Internal Medicine 06/01/19 Annalee Toussaint, PA-C [address] [place] [address] Physician Harbor Boat Pilot Physician Harbor Boat Pilot - Medical 07/15/19 Cr Fung MD [address] [address] Urology 07/15/19 Bianca Rubalcava, RN Specialty Oil Refiner Urology 07/15/19 Wm Ryan MD 420 [place], [place] [address]255 Resident Student in organized health care education/training program 02/01/21 Tatyana Dwyer MD [address] [place], [place] 42[address] Assigned PCP 02/05/21 Christen Gallardo MD [address] [place], [place] 411455 Assigned Endocrinology Provider 11/18/21 Ana Fink MD 420 [place], [place] 593345 Fellow Gastroenterology 10/16/22
--- OUTSIDE RECORDS SUMMARY | 2024-11-13 09:12 | XMS_ITS | Encounter Summary ---
Author Organization [facility] Address [address] [place] [address] Care Team Providers Care Db2 Dba Name Role Phone Tatyana Dwyer MD Primary Care P rolorettader Tatyana Dwyer MD Unavailable Annalee Toussaint-C Unavailable Cr Fung MD Unavailable [phone] Bianca Rubalcava RN Unavailable [phone] Keegan Montemayor MD Unavailable Un available Joselin Andrade PA-C Unavailable Steven Tatum MD Unavailable Jim Mark MD Unavailable [phone] Jaime Wood MD Unavailable [phone] Annalee Toussaint-C Unavailable [phone] Honey Jackson APRN, CNP Unavailable [phone] Wm Ryan MD Unavailable Tatyana Dwyer MD Unavailable Amalia Agosto GC Unavailable [phone] Jaime Wood MD Unavailable [phone] Christen Gallardo MD Unavailable [phone] Ana Fink MD Unavailable Encounter Details Date Type Department Care Team (Late st Contact Info) Description 10/02/[address] 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 Gender Identity Male 12/19/2020 9:52 PM CDT Sexual Orientation Straight 12/19/2020 9: 52 PM CDT Travel History Travel Start Travel End [place] 10/12/2024 10/14/2024 documented as of this encounter Plan of Treatment Upcoming Encounters Date Type Department Care Team (Late st Contact Info) Description 11/20/2024 9:30 AM CDT Office Visit [facility] [address] [place] [phone] Tatyana Dwyer MD [address] [place], [place] [address] 02/10/2025 11:30 AM CDT Office Visit [facility] [address] [place] [address] [address] [place] [phone] Christen Gallardo MD [address] [facility] [place] [address] documented as of this encounter Visit Diagnoses Not on filedocumented in this encounter Additional Health Concerns Infection Onset Date Last Indicated Resolved Time Rule Out COVID-19 10/25/2021 10/25/2021 10/26/2021 12:43 PM CDT COVID-19 10/25/2021 10/25/2021 11/15/2021 11:3 9 PM CDT documented as of this encounter Care Teams Db2 Dba Relationship Specialty Start Date End Date Tatyana Dwyer MD [address] [place] [address] PCP - General Internal Medicine 06/01/19 Tatyana Dwyer MD [address] [place] [address] Assigned PCP 05/31/19 10/15/20 Annalee Toussaint PA-C [address] 58[address] Physician Bag Mender Physician Bag Mender - Medical 07/15/19 Cr Fung MD 420 [facility] [address] [place] [address] Urology 07/15/19 Bianca Rubalcava, RN Specialty Sorter Upholstery Parts Urology 07/15/19 Keegan Montemayor MD Assigned Heart and Vascular Provider 04/08/20 12/27/20 Joselin Andrade PA-C [address] [place] [address] Assigned Pediatric Specialist Provider 04/08/20 07/17/20 [place] [address] [place] [address] Assigned Surgical Provider 04/08/20 07/22/21 Jim Mark MD [address] [place], [place] 604745 Assigned Musculoskeletal Provider 04/08/20 02/11/21 Jaime Wood MD [address] [place], [place] [address] Assigned Sleep Provider 04/08/2004/08 Annalee Toussaint PA-C [address] [place], [place] [address] Assigned OBGYN Provider 08/31/20 1 Honey Jackson APRN BROOD STATION MANAGER [address] [place], [place] 287027 Assigned PCP 10/16/20 02/04/21 Wm Ryan MD 420 [place], [place] 912385 Resident Student in organized health care education/training program 02/01/21 Tatyana Dwyer MD [address] [place], [place] 19482337 Assigned PCP 02/05/21 Amalia Agosto GC [address] [place], [place] 153944 Assigned OBGYN Provider 05/07/21 07/15/21 Jaime Wood MD [address] [place] [address] Assigned Sleep Provider 07/09/21 Christen Gallardo MD [address] [place] [address] Assigned Endocrinology Provider 11/18/21 Ana Fink MD [address] [place] [address] Fellow Gastroenterology 10/16/22 documented as of this encounter
--- OUTSIDE RECORDS SUMMARY | 2024-11-13 09:12 | XMS_ITS | Clinical Summary ---
Author Organization [facility] Address [address], [place] [address] Care Team Providers Care Anesthesia Attending Name Role Phone Michelet Velasco MD Primary [...] for each transition of care or referral. [facility] Allerg[facility] No known active allergies Medications hydroCHLOROthiazi de (ORETIC) 25 MG tablet 08/27/19 19 Active lisinopril (ZESTRIL) 10 MG tablet 08/27/19 19 Active nebivolol (BYSTOLIC) 2.5 MG Take 1 Tablet (2.5 mg) by mouth. 06/30/19 20 Active omega-3 fatty acids (FISH OIL) 1000 MG capsule Take 1 Capsule (1,000 mg) by mouth. 11/25/19 16 Active omeprazole (PRILOSEC OTC) 20 MG enteric coated tablet Take 1 Tablet (20 mg) by mouth. 06/17/19 17 Active sildenafil (VIAGRA) 100 MG tablet Take 0.5-1 Tablets (50-100 mg) by mouth. 08/20/19 20 Active multivitamin (THERAGRAN) tablet Take 1 Tablet by mouth daily. Active Probiotic Product (SUPER PROBIOTIC OR) Active baclofen (LIORESAL) 10 MG tablet Take 0.5-1 Tablets (5-10 mg) by mouth two times daily as needed (muscle tension/pain). 60 Tablet 1 10/29/19 24 Active Additional Information Patient not taking.Reported on 11/12/2024 testosterone cypionate (DEPO-TESTOSTERON E) 200 MG/ML injection 0.5 mL (100 mg). Act luna Tadalafil (CIALIS) 10 MG tablet Take 1 tablet by mouth daily as needed, take pre intercourse as directed. 05/06/20 23 Active WEGOVY 2.4 MG/0.75ML pen injection SMARTSI.4 Milligram(s) SUB-Q Once a Week Active WEGOVY 1.7 MG/0.75ML pen injection SMARTSI.7 Milligram(s) SUB-Q Once a Week Active semaglutide-weigh t management (WEGOVY) 0.5 MG/0.5ML pen injection 06/18/19 24 Active ZEPBOUND 7.5 MG/0.5ML pen injection Inject 0.5 mL (7.5 mg) subcutaneously once every week. Active predniSONE (DELTASONE) 20 MG tabletIndications :Left lumbar radiculopathy Take 2 Tablets (40 mg) by mouth daily for 7 days. 14 Tablet 11/13/19 25 025 Active methocarbamol (ROBAXIN) 500 MG tabletIndications :Left lumbar radiculopathy Take 1 Tablet (500 mg) by mouth three times a day. 30 Tablet 11/13/19 25 Active Active Problems Problem Noted Date [...] Encounters Date Type Department Care Team Description 11/12/2024 10:30 AM CDT Office Visit Physical Therapy at [facility] [place] [id number] Leighann Pemberton, PT Acute left-sided low back pain, unspecified whether sciatica present (Primary Dx) 11/12/2024 8:50 AM CDT Office Visit [facility] [place] [address] [place] [address] Robson Irvin DO Left lumbar radiculopathy (Primary Dx) from Last 3 Months Social History Tobacco [...] Comments Blood Pressure 137/72 07/16/2024 9:33 AM TYPE CASTER Pulse 90 07/16/2024 9:33 AM TYPE CASTER Temperature 36.7 C (98.1 F) 11/12/2024 9:06 AM CDT Respiratory Rate 18 07/16/2024 9:33 AM TYPE CASTER Oxygen Saturation 99% 07/16/2024 9:33 AM TYPE CASTER Inhaled Oxygen Concentration - - Weight 132 kg (291 lb) 11/12/2024 9:05 AM CDT Height 182.9 cm (6') 11/12/2024 9:05 AM CDT Body Mass Index 39.47 11/12/2024 9:05 AM CDT Plan of Treatment Upcoming Encounters Date Type Department Care Team (Late st Contact Info) Description 11/17/2024 8:30 AM CDT Appointment [facility] [address] [place] [phone] Robson Irvin DO [address] [place], [place] [address] 1, Jacoby Interiano Rn, DO [address] [place], [place] [id number] Health Maintenance Due Date Last Done Comments Hep C Screening (Preventive Services) 1985 HIV Screening (Preventive Services) 2001 Adult Preventive Visit 08/31/2003 HepB Vaccine (1) 2004 Cholesterol 2020 Diabetes Screening- (based on age and BMI) 11/20/2026 11/21/2023, 04/02/2023 DTaP/Tdap/Td Vaccine (3 - Tdap) 11/26/2031 11/25/2021, 09/27/2010 Zoster/Shingles Vaccine (1 of 2) 08/31/2035 MCV4 Vaccine Aged Out 07/06/2003 No longer eligi ble based on patient's age to complete this topic Influenza Vaccine Completed 06/03/2024, , 02/16/2023, Additional history exists COVID-19 Vaccine Completed 06/20/2024, , 03/30/2022, Additional history exists HPV Vaccine Aged Out No longer eligi ble based on patient's age to complete this topic HepA Vaccine Aged Out No longer eligi ble based on patient's age to complete this topic Hib Vaccine Aged Out No longer eligi ble based on patient's age to complete this topic IPV (Polio) Vaccine Aged Out No longe r eligible based on patient's age to complete this topic Meningococcal B Vaccine Aged Out No l onger eligible based on patient's age to complete this topic Pneumococcal Vaccine Aged Out No long er eligible based on patient's age to complete this topic Insurance [facility] Care Teams Anesthesia Attending Relationship Specialty Start Date End Date Michelet Velasco MD [address] [place] [address] PCP - General 10/20/13
--- OUTSIDE RECORDS SUMMARY | 2024-11-13 09:12 | XMS_ITS | Encounter Summary ---
Author Organization [place] Address [facility] access hospital[facility] [place] [address] Care Team Providers Care Audio Production Instructor Name Role Phone Tatyana Dwyer MD Primary Care P rolorettader Annalee Toussaint PA-C Unavailable Cr Fung MD Unavailable Bianca Rubalcava RN Unavailable [phone] Wm Ryan MD Unavailable Tatyana Dwyer MD Unavailable Christen Gallardo MD Unavailable [phone] Ana Fink MD Unavailable Reason for Visit * Reason Onset Date Comments Prior Auth - Medication 09/10/2024 tirzepat lucas-Weight Management (ZEPBOUND) 5 MG/0.5ML prefilled pen Encounter Details Date Type Department Care Team (Late st Contact Info) Description 09/10/2024 Telephone [facility] Specialty [facility] [address] [facility] [address] [place] [address] Christen Gallardo MD [address] [place] [id number] Prior Auth - Medication (tirzepatide-Weight Management (ZEPBOUND) 5 MG/0.5ML prefilled pen) Social History Tobacco Use Types Packs/Day Years [...] re latives? 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 Prior Authorization Approval Medication: ZEPBOUND 5 MG/0.5ML SC SOAJ Authorization Effective Date: 09/12/2024 Authorization Expiration Date: 03/15/2025 Approved Dose/Quantity: Reference #: Insurance Company: [employer] ([facility]) - Expected CoPay: $ CoPay Card Available: Financial Assistance Needed: Which Pharmacy is filling the prescription: [id number] AT [facility] Pharmacy Notified: Yes Patient Notified: Instructed pharmacy to notify patient when script is ready to order picker/assembler/ship. * Telephone Encounter - Mami Flor - 09/12/2024 11:21 AM CDT Images from the original note were not included. Retail Pharmacy Prior Authorization Team PA Initiation Medication: ZEPBOUND 5 MG/0.5ML SC SOAJ Insurance Company: [employer] ([facility]) - Pharmacy Filling the Rx: [id number] - [place], [place] - [facility] [address] AT [facility] Filling Pharmacy Filling Pharmacy Fax: Start Date: 09/12/2024 Note: Due to record-high volumes, our turn-around time is taking longer than usual . We are currently 3 business days behind in the pools. We are working diligently to submit all requests in a timely manner and in the order they are received. Please only flag TRUE URGENT requests as high priority to the pool at this time. If you have questions on status of PA's, please send a note/message in the active PA encounter and send back to the [facility] PA pool [[phone]]. If you have questions about the turn-around time or about our process, please reach out to our group supervisor yard Radha Jimenez. Thank you! RPPA (Retail Pharmacy Prior Authorization) team [id number] * Telephone Encounter - John Yan MA - 09/10/2024 1:04 PM CDT CURRAN: [id number] Prior Authorization Retail Medication Request Medication/Dose: tirzepatide-Weight Management (ZEPBOUND) 5 MG/0.5ML prefilled pen Diagnosis and ICD code (if different than what is on RX): E66.813, E66.01, Z68.42 New/renewal/insurance change PA/secondary ins. PA: Previously Tried and Failed: Rationale: Insurance Primary: [facility] Secondary (if applicable): Insurance ID: Pharmacy Information (if different than what is on RX) Name: [facility] Information Preferred routing pool for dept communication: [facility] documented in this encounter Plan of Treatment Upcoming Encounters Date Type Department Care Team (Late st Contact Info) Description 11/20/2024 9:30 AM CDT Office Visit [facility] [address] [facility] [address] [place] [address] Tatyana Dwyer MD [address] [place], [place] [address] 02/10/2025 11:30 AM CDT Office Visit [facility] [address] [facility] [address] [place] [phone] Christen Gallardo MD [address] [place] [address] documented as of this encounter Visit Diagnoses Not on filedocumented in this encounter Care Teams Audio Production Instructor Relationship Specialty Start Date End Date Tatyana Dwyer MD [address] [place], [place] [address] PCP - General Internal Medicine 06/01/19 Annalee Toussaint PA-C [address] [facility] [address] [place], [place] [address] Physician Inspector Heating And Refrigeration Physician Inspector Heating And Refrigeration - Medical 07/15/19 Cr Fung MD [address] [place] [id number] Urology 07/15/19 Bianca Rubalcava, RN Specialty Media Associate Urology 07/15/19 Wm Ryan MD [address] [place] [address] Resident Student in organized health care education/training program 02/01/21 Tatyana Dwyer MD [address] [place], [place] [address] Assigned PCP 02/05/21 Christen Gallardo MD [address] [place] [address] Assigned Endocrinology Provider 11/18/21 Ana Fink MD [address] [place] [address] Fellow Gastroenterology 10/16/22 documented as of this encounter
--- OUTSIDE RECORDS SUMMARY | 2024-11-13 09:12 | XMS_ITS | Encounter Summary ---
Author Organization [facility] Address [address] [place] [address] Care Team Providers Care Ag Equipment Field Service Technician Name Role Phone Tatyana Dwyer MD Primary Care P rovider Annalee Toussaint PA-C Unavailable [phone] Cr Fung MD Unavailable Bianca Rubalcava RN Unavailable [phone] Wm Ryan MD Unavailable [phone] Tatyana Dwyer MD Unavailable Christen Gallardo MD Unavailable [phone] Ana Fink MD Unavailable Encounter Details Date Type Department Care Team (Latest Contact Info) Description 10/19/2024 Travel Social History Tobacco Use Types Packs/Day [...] Answer Date Recorded PHQ-2 Score 0 08/18/2024 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 Gender Identity Male 12/19/2020 9:52 PM CDT Sexual Orientation Straight 12/19/2020 9: 52 PM CDT Travel History Travel Start Travel End [place] 10/12/2024 10/14/2024 documented as of this encounter Plan of Treatment Upcoming Encounters Date Type Department Care Team (Late st Contact Info) Description 11/20/2024 9:30 AM CDT Office Visit [address] [place] [phone] Tatyana Dwyer MD [address] [place], [place] [address] 02/10/2025 11:30 AM CDT Office Visit [address] [place] [phone] Christen Gallardo MD [address] [place] [address] documented as of this encounter Visit Diagnoses Not on filedocumented in this encounter Care Teams Ag Equipment Field Service Technician Relationship Specialty Start Date End Date Tatyana Dwyer MD [address] [place], [place] [address] PCP - General Internal Medicine 06/01/19 Annalee Toussaint PA-C [address] [facility] [address] [place] [address] Physician Newborn Hearing Screener Physician Newborn Hearing Screener - Medical 07/15/19 Cr Fung MD [address] [place] [address] [address] [place] [address] Urology 07/15/19 Bianca Rubalcava, RN Specialty Industrial Psychologist Urology 07/15/19 Wm Ryan MD [address] [place] [id number] Resident Student in [facility] health care education/training program 02/01/21 Tatyana Dwyer MD [address] [place] [address] Assigned PCP 02/05/21 Christen Gallardo MD [address] [place] [address] Assigned Endocrinology Provider 11/18/21 Ana Fink MD [address] [place] [address] Fellow Gastroenterology 10/16/22 documented as of this encounter
--- OUTSIDE RECORDS SUMMARY | 2024-11-13 09:12 | XMS_ITS | Encounter Summary ---
Author Organization [place] Address [facility] [place] [address] Care Team Providers Care Retail Business Development Manager Name Role Phone Tatyana Dwyer MD Primary Care P rolorettader Annalee Toussaint PA-C Unavailable Cr Fung MD Unavailable Bianca Rubalcava RN Unavailable [phone] Wm Ryan MD Unavailable Tatyana Dwyer MD Unavailable Christen Gallardo MD Unavailable [phone] Ana Fink MD Unavailable Reason for Visit * Reason Onset Date Comments Orders 11/02/2024 lab Encounter Details Date Type Department Care Team (Late st Contact Info) Description 11/02/2024 [facility] Medical Advice [address] [place] [address] Tatyana Dwyer MD [address] [place] [address] Orders (lab) Social History Tobacco Use Types Packs/Day Years [...] re latives? 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 Insurance coverage for these tests is the patient responsibility. Endocrinology can fax lab request. Dr. Lam does not need to be involved * Telephone Encounter - Rut Claudio - 11/03/2024 1:32 PM CDT OFFICE VISIT with you on 11/20/24. Asking for labs to be done prior as her has other lab work to be done from another provider. documented in this encounter Plan of Treatment Upcoming Encounters Date Type Department Care Team (Late st Contact Info) Description 11/20/2024 9:30 AM CDT Office Visit [facility] [address] [place] [place] [phone] Tatyana Dwyer MD [address] [place], [place] [address] 02/10/2025 11:30 AM CDT Office Visit [facility] [address] [facility] [address] [place] [phone] Christen Gallardo MD [address] [place], [place] [address] Scheduled Orders Name Type Priority Associated Diagnoses Orde r Schedule CBC with platelets Lab Routine HTN, goal below 140/90 Hyperlipidemia LDL goal <130 Patient request for diagnostic testing Expected: 11/04/2024 (Approximate), Expires: 06/11/2025 Comprehensive metabolic panel Lab Routine HTN, goal below 140/90 Hyperlipidemia LDL goal <130 Patient request for diagnostic testing Expected: 11/04/2024 (Approximate), Expires: 06/11/2025 Lipid panel reflex to direct LDL Fasting Lab Routine HTN, goal below 140/90 Hyperlipidemia LDL goal <130 Patient request for diagnostic testing Expected: 11/04/2024 (Approximate), Expires: 06/11/2025 Vitamin D Deficiency Lab Routine HTN, goal below 140/90 Hyperlipidemia LDL goal <130 Patient request for diagnostic testing Expected: 11/04/2024 (Approximate), Expires: 05/06/2025 TSH with free T4 reflex Lab Routine HTN, goal below 140/90 Hyperlipidemia LDL goal <130 Patient request for diagnostic testing Expected: 11/04/2024 (Approximate), Expires: 06/11/2025 Vitamin B12 Lab Routine HTN, goal below 140/90 Hyperlipidemia LDL goal <130 Patient request for diagnostic testing Expected: 11/03/2024 (Approximate), Expires: 06/11/2025 documented as of this encounter Visit Diagnoses Diagnosis HTN, goal below 140/90- Primary Unspecified essential hypertension Hyperlipidemia LDL goal <130 Other and unspecified hyperlipidemia Patient request for diagnostic testing Other specified general medical examination documented in this encounter Care Teams Retail Business Development Manager Relationship Specialty Start Date End Date Tatyana Dwyer MD [address] [place] [address] PCP - General Internal Medicine 06/01/19 Annalee Toussaint PA-C [address] [phone] Physician Senior Payroll Specialist Physician Senior Payroll Specialist - Medical 07/15/19 Cr Fung MD [address] [place] [id number] Urology 07/15/19 Bianca Rubalcava, RN Specialty Engine Pilot Urology 07/15/19 Wm Ryan MD [address] [place] [address] Resident Student in organized health care education/training program 02/01/21 Tatyana Dwyer MD [address] [place] [address] Assigned PCP 02/05/21 Christen Gallardo MD [address] [place] [id number] Assigned Endocrinology Provider 11/18/21 Ana Fink MD [address] [place] [address] Fellow Gastroenterology 10/16/22 documented as of this encounter
--- OUTSIDE RECORDS SUMMARY | 2024-11-13 09:12 | XMS_ITS | Encounter Summary ---
Author Organization [facility] Address [facility] [place] [address] Care Team Providers Care Grape Crusher Name Role Phone Tatyana Dwyer MD Primary Care P rovider Annalee Toussaint-C Unavailable Cr Fung MD Unavailable Bianca Rubalcava RN Unavailable [phone] Wm Ryan MD Unavailable Tatyana Dwyer MD Unavailable Christen Gallardo MD Unavailable [phone] Ana Fink MD Unavailable Encounter Details Date Type Department Care Team (Late st Contact Info) Description 09/06/2024 [facility] Medical Advice [facility] [place] [address] [place] [address] [address] [place] [address] Christen Gallardo MD [address] [place], [place] [address] Class 3 severe obesity with serious comorbidity and body mass index (BMI) of 45.0 to 49.9 in adult, unspecified obesity type (H); Hypogonadism in male Social History Tobacco Use Types Packs/Day Years [...] re latives? Twice a week 11/16/2023 Attends M[employer] Services Not on file 11/15 Active Member [...] Answer Date Recorded PHQ-2 Score 0 08/18/2024 [facility] - Occupational [...] PM CDT Legal Sex Male 3:08 AM OB TECH Gender Identity Male 12/19/2020 9:52 PM CDT Sexual Orientation Straight 12/19/2020 9: 52 PM CDT Travel History Travel Start Travel End [place] 10/12/2024 10/14/2024 documented as of this encounter Miscellaneous Notes * Addendum Note - Christen Gallardo MD - 09/06/2024 3:39 PM CDTAddended by: CHRISTEN GALLARDO on: 09/30/2024 07:45 AM Modules accepted: Orders documented in this encounter Plan of Treatment Upcoming Encounters Date Type Department Care Team (Late st Contact Info) Description 11/20/2024 9:30 AM CDT Office Visit [place] [address] [place] [address] Tatyana Dwyer MD [address] [place] [address] 02/10/2025 11:30 AM CDT Office Visit [facility] [place] [address] [facility] [address] [place] [phone] Christen Gallardo MD [address] [place] [address] documented as of this encounter Visit Diagnoses Diagnosis Class 3 severe obesity with serious comorbidity and body mass index (BMI) of 45.0 to 49.9 in adult, unspecified obesity type (H) Hypogonadism in male documented in this encounter Care Teams Grape Crusher Relationship Specialty Start Date End Date Tatyana Dwyer MD [address] [place] [address] PCP - General Internal Medicine 06/01/19 Annalee Toussaint, PAMarianaC [address] [place] [address] [place], [place] [address] Physician Shactor Physician Shactor - Medical 07/15/19 Cr Fung MD [address] [facility] [address] [place], [place] [address] Urology 07/15/19 Bianca Rubalcava, RN Specialty Information Strategist Urology 07/15/19 Wm Ryan MD [address] [place], [place] [address] Resident Student in organized health care education/training program 02/01/21 Tatyana Dwyer MD [address] [place] [address] Assigned PCP 02/05/21 Christen Gallardo MD [address] [place] [address] Assigned Endocrinology Provider 11/18/21 Ana Fink MD [address] [place] [address] Fellow Gastroenterology 10/16/22 documented as of this encounter
--- OUTSIDE RECORDS SUMMARY | 2024-11-13 09:13 | XMS_ITS | Encounter Summary ---
Author Organization [facility] Address [address] [place] [address] Care Team Providers Care Bag Sorter Name Role Phone Tatyana Dwyer MD Primary Care P rolorettader Tatyana Dwyer MD Unavailable Annalee Toussaint-C Unavailable Cr Fung MD Unavailable [phone] Bianca Rubalcava RN Unavailable [phone] Keegan Montemayor MD Unavailable Un available Joselin Andrade PA-C Unavailable Steven Tatum MD Unavailable Jim Mark MD Unavailable [phone] Jaime Wood MD Unavailable [phone] Annalee Toussaint-C Unavailable [phone] Honey Jackson APRN, CNP Unavailable + [phone] Wm Ryan MD Unavailable Tatyana Dwyer MD Unavailable Amalia Agosto GC Unavailable [phone] Jaime Wood MD Unavailable [phone] Christen Gallardo MD Unavailable [phone] Ana Fink MD Unavailable Reason for Visit * Reason Onset Date Comments Patient Request 07/21/2019 Encounter Details Date Type Department Care Team (Late st Contact Info) Description 07/21/2019 Telephone [facility] [place] [address] [place] [address] Annalee Toussaint, DUSTYC [address] [place] [place] [address] Patient Request Social History Tobacco Use Types Packs/Day Years Used Date Smoking Tobacco: Never Smokeless Tobacco: Never Alcohol Use Standard Drinks/Week Comments Yes 1 (1 standard drink = 0.6 oz pur e alcohol) Very occasional Social Connection and Isolation Panel [NHANES] A nswer Date Recorded Frequency of Communication with Friends and Fami ly Not on file 11/16/2023 How often do you get together with friends or re latives? 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 No / Unsure 03/26/2023 8:50 PM CDT documented as of this encounter Miscellaneous Notes * Telephone Encounter - Cordell Curtiseva Cochran - 07/21/2019 12:36 PM CST [facility] Call Center Phone Message May a detailed message be left on voicemail: yes Reason for Call: Other: Patient would like to be seen for testicular pain, patient has been seeing Breana and he sasid he no longer want to see her and is not wanting to see someone else. Please callto discuss. Action Taken: Other: [facility] Urology Travel Screening: Not Applicable MCORN SCRAPER documented in this encounter Plan of Treatment Upcoming Encounters Date Type Department Care Team (Late st Contact Info) Description 11/20/2024 9:30 AM CDT Office Visit [address] [place] [phone] Tatyana Dwyer MD [address] [place] [address] 02/10/2025 11:30 AM CDT Office Visit [address] [place] [address] Christen Gallardo MD [address] [place] [address] documented as of this encounter Visit Diagnoses Not on filedocumented in this encounter Additional Health Concerns Infection Onset Date Last Indicated Resolved Time Rule Out COVID-19 10/25/2021 10/25/2021 10/26/2021 12:43 PM CDT COVID-19 10/25/2021 10/25/2021 11/15/2021 11:3 9 PM CDT documented as of this encounter Care Teams Bag Sorter Relationship Specialty Start Date End Date Tatyana Dwyer MD [address] [place] [address] PCP - General Internal Medicine 06/01/19 Tatyana Dwyer MD [address] [place] [address] Assigned PCP 05/31/19 10/15/20 Annalee Toussaint PA-C [address] [address] Physician Intelligence Director Physician Intelligence Director - Medical 07/15/19 Cr Fung MD [address] [place] [address] Urology 07/15/19 Bianca Rubalcava RN Specialty Parks Recreation Director Urology 07/15/19 Keeagn Montemayor MD Assigned Heart and Vascular Provider 04/08/20 12/27/20 Joselin Andrade PA-C [address] [place] [address] Assigned Pediatric Specialist Provider 04/08/20 07/17/20 [place] [address] [place] [address] Assigned Surgical Provider 04/08/20 07/22/21 Jim Mark MD [address] [place] [address] Assigned Musculoskeletal Provider 04/08/20 02/11/21 Jaime Wood MD [address] [place] [address] Assigned Sleep Provider 04/08/2004/08 Annalee Toussaint PA-C [address] [place] [place] [address] Assigned OBGYN Provider 08/31/20 1 Honey Jackson APRN OPHTHALMOLOGY SURGICAL TECHNICIAN [address] [place] [address] Assigned PCP 10/16/20 02/04/21 Wm Ryan MD [address] [place] [address] [id number] Resident Student in organized health care education/training program 02/01/21 Tatyana Dwyer MD [address] [place] [address] Assigned PCP 02/05/21 Amalia Agosto GC [address] [place] [address] Assigned OBGYN Provider 05/07/21 07/15/21 Jaime Wood MD [address] [place] [place] [address] Assigned Sleep Provider 07/09/21 Christen Gallardo MD [address] [place] [address] Assigned Endocrinology Provider 11/18/21 Ana Fink MD [address] [place] [address] Fellow Gastroenterology 10/16/22 documented as of this encounter
--- OUTSIDE RECORDS SUMMARY | 2024-11-13 09:13 | XMS_ITS | Encounter Summary ---
Author Organization [facility] Address [facility] [place] [address] Care Team Providers Care Customer Service Leader Name Role Phone Tatyana Dwyer MD Primary Care P rovider Annalee Toussaint PA-C Unavailable [phone] Cr Fung MD Unavailable Bianca Rubalcava RN Unavailable [phone] Wm Ryan MD Unavailable [phone] Tatyana Dwyer MD Unavailable Jaime Wood MD Unavailable Christen Gallardo MD Unavailable [phone] Ana Fink MD Unavailable Reason for Visit * Reason Onset Date Comments MyChart Communication 03/08/2022 Encounter Details Date Type Department Care Team (Late st Contact Info) Description 03/08/2022 MyC Medical Advice [address] [place] [address] Tatyana Dwyer MD [address] [place] [address] MyChart Communication Social History Tobacco [...] PM CDT Legal Sex Male 3: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 Gender Identity Male 12/19/2020 9:52 PM CDT Sexual Orientation Straight 12/19/2020 9: 52 PM CDT Travel History Travel Start Travel End [place] 10/12/2024 10/14/2024 documented as of this encounter Miscellaneous Notes * Telephone Encounter - Adriana Minor RN - 03/09/2022 2:00 PM CDT CPG Soft message sent to patient requesting nurse only [...] Description 11/20/2024 9:30 AM CDT Office Visit [address] [place] [address] [place] [address] Tatyana Dwyer MD [address] [place], [place] [address] 02/10/2025 11:30 AM CDT Office Visit [facility] [address] [facility] [address] [place] [phone] Christen Gallardo MD [address] [place], [place] [address] documented as of this encounter Visit Diagnoses Diagnosis HTN, goal below 140/90 Unspecified essential hypertension Tachycardia Tachycardia, unspecified documented in this encounter Care Teams Customer Service Leader Relationship Specialty Start Date End Date Tatyana Dwyer MD [address] [place], [place] [address] PCP - General Internal Medicine 06/01/19 Ananlee Toussaint PA-C [address] [facility] [address] [place], [place] [address] Physician Pipe Straightener Physician Pipe Straightener - Medical 07/15/19 Cr Fung MD [address] [facility] [address] [place], [place] 6[address] Urology 07/15/19 Bianca Rubalcava, RN Specialty Hospital Cleaning Specialist Urology 07/15/19 Wm Ryan MD [address] [place] [address]235 Resident Student in organized health care education/training program 02/01/21 Tatyana Dwyer MD [address] [place] [address] Assigned PCP 02/05/21 Jaime Wood MD [address] [place] [address] Assigned Sleep Provider 07/09/21 01/04/23 Christen Gallardo MD [address] [place] [address] Assigned Endocrinology Provider 11/18/21 Ana Fink MD [address] [place] [address] Fellow Gastroenterology 10/16/22 documented as of this encounter
--- OUTSIDE RECORDS SUMMARY | 2024-11-13 09:13 | XMS_ITS | Encounter Summary ---
Author Organization [facility] Address [address] [place] [address] Care Team Providers Care Cargo Mate Name Role Phone Tatyana Dwyer MD Primary Care P rolorettader Tatyana Dwyer MD Unavailable Annalee Toussaint-C Unavailable Cr Fung MD Unavailable [phone] Bianca Rubalcava RN Unavailable [phone] Keegan Montemayor MD Unavailable Un available Joselin Andrade PA-C Unavailable Steven Tatum MD Unavailable Jim Mark MD Unavailable [phone] Jaime Wood MD Unavailable [phone] Annalee Toussaint-C Unavailable [phone] Honey Jackson APRN, CNP Unavailable + [phone] Wm Ryan MD Unavailable Tatyana Dwyer MD Unavailable Amalia Agosto GC Unavailable [phone] Jaime Wood MD Unavailable [phone] Christen Gallardo MD Unavailable [phone] Ana Fink MD Unavailable Encounter Details Date Type Department Care Team (Late st Contact Info) Description 06/26/2019 MyC Medical Advice [facility] Urology [facility] [address] [facility] [address] [place] [phone] Annalee Toussaint, PA-C [address] 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 Gender Identity Male 12/19/2020 9:52 PM CDT Sexual Orientation Straight 12/19/2020 9: 52 PM CDT Travel History Travel Start Travel End [place] 10/12/2024 10/14/2024 documented as of this encounter Plan of Treatment Upcoming Encounters Date Type Department Care Team (Late st Contact Info) Description 11/20/2024 9:30 AM CDT Office Visit [facility] [address] [facility] [address] [place] [phone] Tatyana Dwyer MD [address] [place] [address] 02/10/2025 11:30 AM CDT Office Visit [facility] Specialty [facility] [address] [place] [address] [address] [place] [phone] Christen Gallardo MD [address] [place] [address] documented as of this encounter Visit Diagnoses Not on filedocumented in this encounter Additional Health Concerns Infection Onset Date Last Indicated Resolved Time Rule Out COVID-19 10/25/2021 10/25/2021 10/26/2021 12:43 PM CDT COVID-19 10/25/2021 10/25/2021 11/15/2021 11:3 9 PM CDT documented as of this encounter Care Teams Cargo Mate Relationship Specialty Start Date End Date Tatyana Dwyer MD [address] [place] [address] PCP - General Internal Medicine 06/01/19 Tatyana Dwyer MD [address] [place] [address] Assigned PCP 05/31/19 10/15/20 Annalee Toussaint PA-C [address] [place] [address] Physician Clinical Biochemical Geneticist Physician Clinical Biochemical Geneticist - Medical 07/15/19 Cr Fung MD [address] [place] [address] Urology 07/15/19 Bianca Rubalcava, RN Specialty Load Out Person Urology 07/15/19 Keegan Montemayor MD Assigned Heart and Vascular Provider 04/08/20 12/27/20 Joselin Andrade PA-C [address] [place] [address] [place] [address] Assigned Pediatric Specialist Provider 04/08/20 07/17/20 [place] [address] [place] [address] Assigned Surgical Provider 04/08/20 07/22/21 Jim Mark MD [address] [place] [address] Assigned Musculoskeletal Provider 04/08/20 02/11/21 Jaime Wood MD [address] [place] [address] Assigned Sleep Provider 04/08/2004/08 Annalee Toussaint, PA-C [address] [place], [place] [address] Assigned OBGYN Provider 08/31/20 1 Honey Jackson APRN FAMILY PRESERVATION WORKER [address] [place] [address] Assigned PCP 10/16/20 02/04/21 Wm Ryan MD [address] [place] [address] 496665 Resident Student in organized health care education/training program 02/01/21 Tatyana Dwyer MD [address] [place] [address] Assigned PCP 02/05/21 Amalia Agosto GC [address] [place] [address] Assigned OBGYN Provider 05/07/21 07/15/21 Jaime Wood MD [address] [facility] [address] [place] [address] Assigned Sleep Provider 07/09/21 Christen Gallardo MD [address] [address] Assigned Endocrinology Provider 11/18/21 Ana Fink MD [address] [place] [address] Fellow Gastroenterology 10/16/22 documented as of this encounter
--- OUTSIDE RECORDS SUMMARY | 2024-11-13 09:13 | XMS_ITS | Encounter Summary ---
Author Organization [facility] Address [address] [place] [address] Care Team Providers Care Momd Teacher Name Role Phone Tatyana Dwyer MD Primary Care P rolorettader [place] Dwyer MD Unavailable Annalee Toussaint-C Unavailable Cr Fung MD Unavailable Bianca Rubalcava RN Unavailable [phone] Keegan Montemayor MD Unavailable Un available Joselin Andrade PA-C Unavailable Steven Tatum MD Unavailable Jim Mark MD Unavailable [phone] Jaime Wood MD Unavailable [phone] Annalee Toussaint-C Unavailable [phone] Honey Jackson APRN, CNP Unavailable + [phone] Wm Ryan MD Unavailable Tatyana Dwyer MD Unavailable Amalia Agosto GC Unavailable [phone] Jaime Wood MD Unavailable [phone] Christen Gallardo MD Unavailable [phone] Ana Fink MD Unavailable Encounter Details Date Type Department Care Team (Late st Contact Info) Description 06/30/2019 MyC Medical Advice [facility] [address] [facility] [address] [place] [phone] Keegan Montemayor MD Social History Tobacco Use [...] PM CDT 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 He can just stop metoprolol 1 day and start Bystolic the next day. Keegan Montemayor MD Cardiology - [facility] Heart Pager: [phone] Text Page June 30, 2019 CIPAL SCIENTIST documented in this encounter Plan of Treatment Upcoming Encounters Date Type Department Care Team (Late st Contact Info) Description 11/20/2024 9:30 AM CDT Office Visit [facility] [address] [facility] [address] [place] [phone] Tatyana Dwyer MD [address] [place] [address] 02/10/2025 11:30 AM CDT Office Visit [facility] Specialty [facility] [address] [facility] [address] [place] [phone] Christen Gallardo MD [address] [place] [address] documented as of this encounter Visit Diagnoses Not on filedocumented in this encounter Additional Health Concerns Infection Onset Date Last Indicated Resolved Time Rule Out COVID-19 10/25/2021 10/25/2021 10/26/2021 12:43 PM CDT COVID-19 10/25/2021 10/25/2021 11/15/2021 11:3 9 PM CDT documented as of this encounter Care Teams Momd Teacher Relationship Specialty Start Date End Date Tatyana Dwyer MD [address] [place] [address] PCP - General Internal Medicine 06/01/19 Tatyana Dwyer MD [address] [place] [address] Assigned PCP 05/31/19 10/15/20 Annalee Toussaint PA-C [address] [place] [address] Physician Executor Of Estate Physician Executor Of Estate - Medical 07/15/19 Cr Fung MD [address] [place] [address] [address] [place] [address] Urology 07/15/19 Bianca Rubalcava, RN Specialty Catalyst Concentration Operator Urology 07/15/19 Keegan Montemayor MD Assigned Heart and Vascular Provider 04/08/20 12/27/20 Joselin Andrade PA-C [address] [place] [address] Assigned Pediatric Specialist Provider 04/08/20 07/17/20 [place] [address] [place], [place] [address] Assigned Surgical Provider 04/08/20 07/22/21 Jim Mark MD [address] [place] [address] 456455 Assigned Musculoskeletal Provider 04/08/20 02/11/21 Jaime Wood MD [address] [place] [address] Assigned Sleep Provider 04/08/2004/08 Annalee Toussaint PA-C [address] [place], [place] [address] Assigned OBGYN Provider 08/31/20 1 Honey Jackson APRN RN RADIOLOGY [address] [place], [place] [address] Assigned PCP 10/16/20 02/04/21 Wm Ryan MD [address] [place] [address] 677735 Resident Student in organized health care education/training program 02/01/21 Tatyana Dwyer MD [address] [place] [address] Assigned PCP 02/05/21 Amalia Agosto GC [address] [place], [place] [address]44 Assigned OBGYN Provider 05/07/21 07/15/21 Jaime Wood MD [address] [facility] 103 [place], [place] [address] Assigned Sleep Provider 07/09/21 Christen Gallardo MD [address] [place] 8[address] Assigned Endocrinology Provider 11/18/21 Ana Fink MD [address] [place] [address] 332715 Fellow Gastroenterology 10/16/22 documented as of this encounter
--- OUTSIDE RECORDS SUMMARY | 2024-11-13 09:13 | XMS_ITS | Encounter Summary ---
Author Organization [facility] Address [facility] [place] [address] Care Team Providers Care Oracle Business Intelligence Developer Name Role Phone Tatyana Dwyer MD Primary Care P rovider Annalee Toussaint-C Unavailable [phone] Cr Fung MD Unavailable Bianca Rubalcava RN Unavailable [phone] Steven Tatum MD Unavailable Wm Ryan MD Unavailable Tatyana Dwyer MD Unavailable Amalia Agosto GC Unavailable [phone] Jaime Wood MD Unavailable Christen Gallardo MD Unavailable [phone] Ana Fink MD Unavailable Reason for Visit * Reason Onset Date Comments Call Back 04/14/2021 Encounter Details Date Type Department Care Team (Late st Contact Info) Description 04/14/2021 Telephone [facility] [place] [address] [facility] 103 [place] [address] Jaime Wood MD [address] [facility] 103 [place] [address] Call Back Social History Tobacco Use [...] re latives? 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 No / Unsure 03/26/2023 8:50 PM CDT documented as of this encounter Miscellaneous Notes * Telephone Encounter - Reason, Sophia D - 04/14/2021 8:45 AM CDT Reason for call: Other Patient called regarding (reason for call): call back Additional comments: per patient, he will like to be called back to schedule home sleep study . Phone number to reach patient: Home number on file [phone] (home) Best Time: Anytime Can we leave a detailed message on this number? NO Travel screening: Not Applicable documented in this encounter Plan of Treatment Upcoming Encounters Date Type Department Care Team (Late st Contact Info) Description 11/20/2024 9:30 AM CDT Office Visit [facility] [address] [place] [address] Tatyana Dwyer MD [address] [place], [place] [address] 02/10/2025 11:30 AM CDT Office Visit [facility] [address] [facility] [address] [place] [address] Christen Gallardo MD [address] [place] [address] documented as of this encounter Visit Diagnoses Not on filedocumented in this encounter Additional Health Concerns Infection Onset Date Last Indicated Resolved Time Rule Out COVID-19 10/25/2021 10/25/2021 10/26/2021 12:43 PM CDT COVID-19 10/25/2021 10/25/2021 11/15/2021 11:3 9 PM CDT documented as of this encounter Care Teams Oracle Business Intelligence Developer Relationship Specialty Start Date End Date Tatyana Dwyer MD [address] [place], [place] [address] PCP - General Internal Medicine 06/01/19 Annalee Toussaint PA-C [address] [facility] 500 [place], [place] [address] Physician Pull Up Hand Physician Pull Up Hand - Medical 07/15/19 Cr Fung MD 420 [facility] 394 [place], [place] [address] Urology 07/15/19 Bianca Rubalcava, RN Specialty Link Knitting Machine Operator Urology 07/15/19 [place] [address] [place] [address] Assigned Surgical Provider 04/08/20 07/22/21 Wm Ryan MD [address] [place], [place] 5899[address] Resident Student in organized health care education/training program 02/01/21 Tatyana Dwyer MD [address] [place], [place] 27[address]97 Assigned PCP 02/05/21 Amalia Agosto GC [address] [place] [address] Assigned OBGYN Provider 05/07/21 07/15/21 Jaime Wood MD [address] [address] Assigned Sleep Provider 07/09/21 01/04/23 Christen Gallardo MD [address] [facility] [place] [address] Assigned Endocrinology Provider 11/18/21 Ana Fink MD [address] [place] [address] Fellow Gastroenterology 10/16/22 documented as of this encounter
--- OUTSIDE RECORDS SUMMARY | 2024-11-13 09:13 | XMS_ITS | Encounter Summary ---
Author Organization [place] Address formerly [facility] [place] [address] Care Team Providers Care Experienced Truck Driver Name Role Phone Tatyana Dwyer MD Primary Care P rovider Annalee Toussaint-C Unavailable Cr Fung MD Unavailable [phone] Bianca Rubalcava RN Unavailable [phone] Steven Tatum MD Unavailable Wm Ryan MD Unavailable Tatyana Dwyer MD Unavailable Amalia Agosto GC Unavailable [phone] Jaime Wood MD Unavailable [phone] Christen Gallardo MD Unavailable [phone] Ana Fink MD Unavailable Encounter Details Date Type Department Care Team (Late st Contact Info) Description 07/03/2021 [facility] [address] [facility] 103 [place] [address] Jaime Wood MD [address] [facility] 103 [place] [address] Social History Tobacco Use Types [...] PM CDT 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 Gender Identity Male 12/19/2020 9:52 PM CDT Sexual Orientation Straight 12/19/2020 9: 52 PM CDT Travel History Travel Start Travel End [place] 10/12/2024 10/14/2024 documented as of this encounter Plan of Treatment Upcoming Encounters Date Type Department Care Team (Late st Contact Info) Description 11/20/2024 9:30 AM CDT Office Visit [address] [place] [phone] Tatyana Dwyer MD [address] [place] [address] 02/10/2025 11:30 AM CDT Office Visit [address] [place] [address] Christen Gallardo MD 0[address] [place] [address] documented as of this encounter Visit Diagnoses Not on filedocumented in this encounter Additional Health Concerns Infection Onset Date Last Indicated Resolved Time Rule Out COVID-19 10/25/2021 10/25/2021 10/26/2021 12:43 PM CDT COVID-19 10/25/2021 10/25/2021 11/15/2021 11:3 9 PM CDT documented as of this encounter Care Teams Experienced Truck Driver Relationship Specialty Start Date End Date Tatyana Dwyer MD [address] [place] [address] PCP - General Internal Medicine 06/01/19 Annalee Toussaint PA-C [address] [place] [address] [place], [place] [address] Physician Investigation Division Captain Physician Investigation Division Captain - Medical 07/15/19 Cr Fung MD [address] [id number] Urology 07/15/19 Bianca Rubalcava, RN Specialty Scutcher Tender Urology 07/15/19 [place] [address] [place] [address] [id number] Assigned Surgical Provider 04/08/20 07/22/21 Wm Ryan MD 420 [place], [place] 44[address]15 Resident Student in organized health care education/training program 02/01/21 Tatyana Dwyer MD [address] [place] [address] Assigned PCP 02/05/21 Amalia Agosto GC 2450 [place] [address] Assigned OBGYN Provider 05/07/21 07/15/21 Jaime Wood MD [address] [place] [address] [place] [address] Assigned Sleep Provider 07/09/21 01/04/23 Christen Gallardo MD [address] [place] [address] Assigned Endocrinology Provider 11/18/21 Ana Fink MD [address] [place] [address] Fellow Gastroenterology 10/16/22 documented as of this encounter
--- OUTSIDE RECORDS SUMMARY | 2024-11-13 09:13 | XMS_ITS | Encounter Summary ---
Author Organization [place] Address Formerly [facility], [facility] [place] [address] Care Team Providers Care Personnel Technician Name Role Phone Tatyana Dwyer MD Primary Care P rovider Annalee Toussaint PA-C Unavailable [phone] Cr Fung MD Unavailable Bianca Rubalcava RN Unavailable [phone] Wm Ryan MD Unavailable Tatyana Dwyer MD Unavailable Christen Gallardo MD Unavailable [phone] Ana Fink MD Unavailable Encounter Details Date Type Department Care Team (Late st Contact Info) Description 02/10/2024 MyC Medical Advice [facility] [address] [address] May Farah Social History Tobacco [...] re latives? 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 Gender Identity Male 12/19/2020 9:52 PM CDT Sexual Orientation Straight 12/19/2020 9: 52 PM CDT Travel History Travel Start Travel End [place] 10/12/2024 10/14/2024 documented as of this encounter Plan of Treatment Upcoming Encounters Date Type Department Care Team (Late st Contact Info) Description 11/20/2024 9:30 AM CDT Office Visit [facility] [address] [place] [address] Tatyana Dwyer MD [address] [place], [place] 2[address] 02/10/2025 11:30 AM CDT Office Visit [facility] [address] [place] [address] Christen Gallardo MD 5536 [place], [place] 188405 documented as of this encounter Visit Diagnoses Not on filedocumented in this encounter Care Teams Personnel Technician Relationship Specialty Start Date End Date Tatyana Dwyer MD [address] [place] [address] PCP - General Internal Medicine 06/01/19 Annalee Toussaint PA-C [address] [place] [address] [place] 996785 Physician Field Underwriter Physician Field Underwriter - Medical 07/15/19 Cr Fung MD [address] [place] [address] 394 [place], [place] 904115 Urology 07/15/19 Bianca Rubalcava, RN Specialty University Dean Urology 07/15/19 Wm Rayn MD [address] [place] [address] 040865 Resident Student in organized health care education/training program 02/01/21 Tatyana Dwyer MD [address] [place], [place] 126167 Assigned PCP 02/05/21 Christen Gallardo MD [address] [place] [id number] Assigned Endocrinology Provider 11/18/21 Ana Fink MD [address] [place] [address] 001855 Fellow Gastroenterology 10/16/22 documented as of this encounter
--- OUTSIDE RECORDS SUMMARY | 2024-11-13 09:13 | XMS_ITS | Encounter Summary ---
Author Organization [place] Address [address] [place] [address] Care Team Providers Care Communications Advisor Name Role Phone Tatyana Dwyer MD Primary Care P rovider Annalee Toussaint-C Unavailable [phone] Cr Fung MD Unavailable Bianca Rubalcava RN Unavailable [phone] Steven Tatum MD Unavailable Jaime Wood MD Unavailable Wm Ryan MD Unavailable Tatyana Dwyer MD Unavailable Amalia Agosto GC Unavailable [phone] Jaime Wood MD Unavailable Christen Gallardo MD Unavailable [phone] Ana Fink MD Unavailable Encounter Details Date Type Department Care Team (Late st Contact Info) Description 04/06/2021 External Order Results [facility] [address] [place] [address] Outside, Provider Social History Tobacco Use Types [...] PM CDT 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 No / Unsure 04/06/2021 9:20 AM CDT documented as of this encounter Plan of Treatment Upcoming Encounters Date Type Department Care Team (Late st Contact Info) Description 11/20/2024 9:30 AM CDT Office Visit [address] [place] [address] Tatyana Dwyer MD [address] [place], [place] 58[address] 02/10/2025 11:30 AM CDT Office Visit [facility] [address] [facility] [address] [place] [address] Chritsen Gallardo MD [address] [place] [address] documented as of this encounter Visit Diagnoses Not on filedocumented in this encounter Additional Health Concerns Infection Onset Date Last Indicated Resolved Time Rule Out COVID-19 10/25/2021 10/25/2021 10/26/2021 12:43 PM CDT COVID-10/25/2021 10/25/2021 11/15/2021 11:3 9 PM CDT documented as of this encounter Care Teams Communications Advisor Relationship Specialty Start Date End Date Tatyana Dwyer MD [address] [place] [address] PCP - General Internal Medicine 06/01/19 Annalee Toussaint PA-C [address] [place] [address] Physician Graduate Internship Physician Graduate Internship - Medical 07/15/19 Cr Fung MD [address] [place] [address] 703135 Urology 07/15/19 Bianca Rubalcava, RODNEY Specialty Camouflage Assembler Urology 07/15/19 [place] [address] [place] [address] Assigned Surgical Provider 04/08/20 07/22/21 Jaime Wood MD [address] [place] [address] [place] [address] Assigned Sleep Provider 04/08/20 04/08/21 Wm Ryan MD 420 [place], [place] 812185 Resident Student in organized health care education/training program 02/01/21 Tatyana Dwyer MD [address] [place] [address] Assigned PCP 02/05/21 Amalia Agosto GC 2450 [place], [place] 080894 Assigned OBGYN Provider 05/07/21 07/15/21 Jaime Wood MD 6[address] [facility] 103 [place] 472455 Assigned Sleep Provider 07/09/21 01/04/23 Christen Gallardo MD 64[address] [facility] [place] 888155 Assigned Endocrinology Provider 11/18/21 Ana Fink MD [address] [place] [address] 076065 Fellow Gastroenterology 10/16/22 documented as of this encounter
--- OUTSIDE RECORDS SUMMARY | 2024-11-13 09:13 | XMS_ITS | Encounter Summary ---
Author Organization [place] Address [address] [place] [address] Care Team Providers Care Oven Technician Name Role Phone Tatyana Dwyer MD Primary Care P rovider Annalee Toussaint-C Unavailable [phone] Cr Fung MD Unavailable Bianca Rubalcava RN Unavailable [phone] Wm Ryan MD Unavailable Tatyana Dwyer MD Unavailable Christen Gallardo MD Unavailable [phone] Ana Fink MD Unavailable Encounter Details Date Type Department Care Team (Late st Contact Info) Description 04/02/2023 [facility] [address] [address] Ana Fink MD [address] [place] [address] Social History Tobacco Use Types [...] PM CDT 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 No / Unsure 03/26/2023 8:50 PM CDT documented as of this encounter Plan of Treatment Upcoming Encounters Date Type Department Care Team (Late st Contact Info) Description 11/20/2024 9:30 AM CDT Office Visit [facility] [address] [place] [phone] Tatyana Dwyer MD [address] [place], [place] [address] 02/10/2025 11:30 AM CDT Office Visit [facility] [address] [place] [address] [address] [place] [address] Christen Gallardo MD 50[address] [place], [place] 928[address] documented as of this encounter Visit Diagnoses Not on filedocumented in this encounter Care Teams Oven Technician Relationship Specialty Start Date End Date Tatyana Dwyer MD [address] [place] [address] PCP - General Internal Medicine 06/01/19 Annalee Toussaint PA-C [address] [place] [address] [place] [address] Physician Household Appliance Repairer Physician Household Appliance Repairer - Medical 07/15/19 Cr Fung MD [address] [place] [address] 124165 Urology 07/15/19 Bianca Rubalcava, RODNEY Specialty Talend Etl Developer Urology 07/15/19 Wm Ryan MD [address] [place] [address] 968715 Resident Student in organized health care education/training program 02/01/21 Tatyana Dwyer MD [address] [place] [address] Assigned PCP 02/05/21 Christen Gallardo MD [address] [place] 333[address] Assigned Endocrinology Provider 11/18/21 Ana Fink MD [address] [place] [address] 973425 Fellow Gastroenterology 10/16/22 documented as of this encounter
--- OUTSIDE RECORDS SUMMARY | 2024-11-13 09:13 | XMS_ITS | Encounter Summary ---
Author Organization [place] Address [facility] [place] [address] Care Team Providers Care Aged Or Disabled Care Worker Name Role Phone Tatyana Dwyer MD Primary Care P rovider Annalee Toussaint PA-C Unavailable Cr Fung MD Unavailable [phone] Bianca Rubalcava RN Unavailable [phone] Wm Ryan MD Unavailable Tatyana Dwyer MD Unavailable Christen Gallardo MD Unavailable [phone] Ana Fink MD Unavailable Encounter Details Date Type Department Care Team (Late st Contact Info) Description 03/06/2024 MyC Medical Advice [facility] [address] [place] [address] Christen Gallardo MD [address]68 [place], [place] 308505 Social History Tobacco Use Types Packs/Day Years [...] re latives? 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 Gender Identity Male 12/19/2020 9:52 PM CDT Sexual Orientation Straight 12/19/2020 9: 52 PM CDT Travel History Travel Start Travel End [place] 10/12/2024 10/14/2024 documented as of this encounter Plan of Treatment Upcoming Encounters Date Type Department Care Team (Late st Contact Info) Description 11/20/2024 9:30 AM CDT Office Visit [address] [place] [address] Tatyana Dwyer MD [address] [place], [place] 3[address]87 02/10/2025 11:30 AM CDT Office Visit [facility] [address] [place] [address] [address] [place] [address] Christen Gallardo MD [address] [place], [place] 592075 documented as of this encounter Visit Diagnoses Not on filedocumented in this encounter Care Teams Aged Or Disabled Care Worker Relationship Specialty Start Date End Date Tatyana Dwyer MD [address] [place] [address] PCP - General Internal Medicine 06/01/19 Annalee Toussaint PA-C [address] [place] [address] [place] 9[address]75 Physician Artist Relationship Manager Physician Artist Relationship Manager - Medical 07/15/19 Cr Fung MD [address] [place] [address] 157665 Urology 07/15/19 Bianca Rubalcava, RN Specialty Mason Helper Urology 07/15/19 Wm Ryan MD [address] [place] [address] 673855 Resident Student in organized health care education/training program 02/01/21 Tatyana Dwyer MD [address] [place] [address] Assigned PCP 02/05/21 Christen Gallardo MD [address] [place] [address] Assigned Endocrinology Provider 11/18/21 Ana Fink MD [address] [place] [address] 144965 Fellow Gastroenterology 10/16/22 documented as of this encounter
--- OUTSIDE RECORDS SUMMARY | 2024-11-13 09:13 | XMS_ITS | Encounter Summary ---
Author Organization [place] Address [facility] [place] [address] Care Team Providers Care Nitroglycerin Supervisor Name Role Phone Tatyana Dwyer MD Primary Care P rovider Annalee Toussaint PA-C Unavailable Cr Fung MD Unavailable Bianca Rubalcava RN Unavailable [phone] Wm Ryan MD Unavailable [phone] Tatyana Dwyer MD Unavailable Christen Gallardo MD Unavailable [phone] Ana Fink MD Unavailable Encounter Details Date Type Department Care Team (Late st Contact Info) Description 11/29/2023 [facility] Medical Advice [facility] [address] [place] [address] Christen Gallardo MD [address] [place], [place] 6[address] Social History Tobacco Use Types Packs/Day Years [...] re latives? 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 Gender Identity Male 12/19/2020 9:52 PM CDT Sexual Orientation Straight 12/19/2020 9: 52 PM CDT Travel History Travel Start Travel End [place] 10/12/2024 10/14/2024 documented as of this encounter Plan of Treatment Upcoming Encounters Date Type Department Care Team (Late st Contact Info) Description 11/20/2024 9:30 AM CDT Office Visit [address] [place] [address] Tatyana Dwyer MD [address] [place], [place] [address] 02/10/2025 11:30 AM CDT Office Visit [facility] [address] [place] [address] [address] [place] [address] Christen Gallardo MD [address] [place], [place] 740[address] documented as of this encounter Visit Diagnoses Not on filedocumented in this encounter Care Teams Nitroglycerin Supervisor Relationship Specialty Start Date End Date Tatyana Dwyer MD [address] [place] [address] PCP - General Internal Medicine 06/01/19 Annalee Toussaint PA-C [address] [place] [address] [place] 097025 Physician Real Estate Agent/Broker Physician Real Estate Agent/Broker - Medical 07/15/19 Cr Fung MD [address] [place] [address] 478595 Urology 07/15/19 Bianca Rubalcava, RN Specialty Photographic Supervisor Urology 07/15/19 Wm Ryan MD [address] [place] [address] [phone] Resident Student in organized health care education/training program 02/01/21 Tatyana Dwyer MD [address] [place] [address] Assigned PCP 02/05/21 Christen Gallardo MD [address] [place] [address] Assigned Endocrinology Provider 11/18/21 Ana Fink MD [address] [place] [address] [phone] Fellow Gastroenterology 10/16/22 documented as of this encounter
--- OUTSIDE RECORDS SUMMARY | 2024-11-13 09:13 | XMS_ITS | Encounter Summary ---
Author Organization [place] Address [address] [place] [address]. 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 Gender Identity Male 12/19/2020 9:52 PM CDT Sexual Orientation Straight 12/19/2020 9: 52 PM CDT Travel History Travel Start Travel End [place] 10/12/2024 10/14/2024 documented as of this encounter Plan of Treatment Upcoming Encounters Date Type Department Care Team (Late st Contact Info) Description 11/20/2024 9:30 AM CDT Office Visit [address] [place] [address] Tatyana Dwyer MD [address] [place] [address] 02/10/2025 11:30 AM CDT Office Visit [address] [place] [address] Christen Gallardo MD 3[address] [place] [address] documented as of this encounter Visit Diagnoses Not on filedocumented in this encounter Additional Health Concerns Infection Onset Date Last Indicated Resolved Time Rule Out COVID-19 10/25/2021 10/25/2021 10/26/2021 12:43 PM CDT COVID-19 10/25/2021 10/25/2021 11/15/2021 11:3 9 PM CDT documented as of this encounter Care Teams Oracle R12 Developer Relationship Specialty Start Date End Date Tatyana Dwyer MD [address] [place] [address] PCP - General Internal Medicine 06/01/19 Annalee Toussaint PA-C [address] [facility] 500 [place], [place] [address] Physician Waste Machine Operator Physician Waste Machine Operator - Medical 07/15/19 Cr Fung MD 420 [facility] 394 [place], [place] 734705 Urology 07/15/19 Bianca Rubalcava, RN Specialty Electronic Installer Urology 07/15/19 [place] [address] [place] [address] [id number] Assigned Surgical Provider 04/08/20 07/22/21 Wm Ryan MD [address] [place] [address] 854925 Resident Student in organized health care education/training program 02/01/21 Tatyana Dwyer MD [address] [place], [place] 828077 Assigned PCP 02/05/21 Amalia Agsoto GC 2450 [place], [place] 112884 Assigned OBGYN Provider 05/07/21 07/15/21 Jaime Wood MD [address] [facility] [place] 103 [place], [place] 58[address]85 Assigned Sleep Provider 07/09/21 01/04/23 Christen Gallardo MD [address] [place] [address] Assigned Endocrinology Provider 11/18/21 Ana Fink MD [address] [place] [address] Fellow Gastroenterology 10/16/22 documented as of this encounter
--- OUTSIDE RECORDS SUMMARY | 2024-11-13 09:13 | XMS_ITS | Encounter Summary ---
Author Organization [place] Address [address] [place] [address] Care Team Providers Care Roundhouse Supervisor Name Role Phone Tatyana Dwyer MD Primary Care P rovider Annalee Toussaint PA-C Unavailable Cr Fung MD Unavailable [phone] Bianca Rubalcava RN Unavailable [phone] Steven Tatum MD Unavailable Wm Ryan MD Unavailable Tatyana Dwyer MD Unavailable Amalia Agosto GC Unavailable [phone] Jaime Wood MD Unavailable [phone] Christen Gallardo MD Unavailable [phone] Ana Fink MD Unavailable Encounter Details Date Type Department Care Team (Late st Contact Info) Description 04/17/2021 [facility] [place] [address] [place] [address] Oneil Marin Social History Tobacco Use [...] CDT 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 No / Unsure 04/17/2021 1:10 PM CDT documented as of this encounter Plan of Treatment Upcoming Encounters Date Type Department Care Team (Late st Contact Info) Description 11/20/2024 9:30 AM CDT Office Visit [address] [place] [address] Tatyana Dwyer MD [address] [place], [place] [address] 02/10/2025 11:30 AM CDT Office Visit [facility] [address] [place] [address] [address] [place] [address] Christen Gallardo MD 50[address] [place], [place] 5568[address] documented as of this encounter Visit Diagnoses Not on filedocumented in this encounter Additional Health Concerns Infection Onset Date Last Indicated Resolved Time Rule Out COVID-19 10/25/2021 10/25/2021 10/26/2021 12:43 PM CDT COVID-19 10/25/2021 10/25/202111/15/2021 11:3 9 PM CDT documented as of this encounter Care Teams Roundhouse Supervisor Relationship Specialty Start Date End Date Tatyana Dwyer MD [address] [place] [address] PCP - General Internal Medicine 06/01/19 Annalee Toussaint, DUSTYC [address] [address] Physician Soil Science Professor Physician Soil Science Professor - Medical 07/15/19 Cr Fung MD [address] [place] [address] [phone] Urology 07/15/19 Bianca Rubalcava, RODNEY Specialty Photographic Processor Urology 07/15/19 [place] [address] [place] [address] [phone] Assigned Surgical Provider 04/08/20 07/22/21 Wm Ryan MD [address] [place] [address] 278215 Resident Student in organized health care education/training program 02/01/21 Tatyana Dwyer MD [address] [place] [address] Assigned PCP 02/05/21 Amalia Agosto GC 2450 [place] [address] Assigned OBGYN Provider 05/07/21 07/15/21 Jaime Wood MD [address] [place] [address] [place] [address] Assigned Sleep Provider 07/09/21 01/04/23 Christen Gallardo MD [address] [place] [address] Assigned Endocrinology Provider 11/18/21 Ana Fink MD [address] [place] [address] Fellow Gastroenterology 10/16/22 documented as of this encounter
--- OUTSIDE RECORDS SUMMARY | 2024-11-13 09:13 | XMS_ITS | Encounter Summary ---
Author Organization [place] Address [facility] [place] [address] Care Team Providers Care Medical Billing Specialist Name Role Phone Tatyana Dwyer MD Primary Care P rolorettader Annalee Toussaint PA-C Unavailable [phone] Cr Fung MD Unavailable Bianca Rubalcava RN Unavailable [phone] Wm Ryan MD Unavailable [phone] Tatyana Dwyer MD Unavailable Jaime Wood MD Unavailable [phone] Christen Gallardo MD Unavailable [phone] Ana Fink MD Unavailable Reason for Visit * Reason Onset Date Comments Refill Request 11/06/2022 lisinopril (ZESTRIL) 20 MG tablet 11/06/2022 Encounter Details Date Type Department Care Team (Late st Contact Info) Description 11/06/2022 Refill [facility] [address] [place] [address] Tatyana Dwyer MD [address] [place] [address] Refill Request; lisinopril (ZESTRIL) 20 [...] PM CDT 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 No / Unsure 10/22/2022 11:27 AM CDT documented as of this encounter Miscellaneous Notes * Telephone Encounter - Carolyn Palumbo RN - 11/07/2022 2:14 PM CDT Prescription approved per [facility] Refill Protocol. Due around 06/21/23 for next office visit documented in this encounter Plan of Treatment Upcoming Encounters Date Type Department Care Team (Late st Contact Info) Description 11/20/2024 9:30 AM CDT Office Visit [place] [address] [place] [address] Tatyana Dwyer MD [address] [place] [address] 02/10/2025 11:30 AM CDT Office Visit [facility] [place] [address] [facility] [address] [place] [phone] Christen Gallardo MD [address] [place] [address] documented as of this encounter Visit Diagnoses Diagnosis HTN, goal below 140/90 Unspecified essential hypertension documented in this encounter Care Teams Medical Billing Specialist Relationship Specialty Start Date End Date Tatyana Dwyer MD [address] [place], [place] [address] PCP - General Internal Medicine 06/01/19 Annalee Toussaint PA-C [address] [place] [place], [place] [address] Physician Silverware Buffer Physician Silverware Buffer - Medical 07/15/19 Cr Fung MD [address] [facility] 394 [place], [place] [address] Urology 07/15/19 Bianca Rubalcava, RN Specialty Laser Print Operator Urology 07/15/19 Wm Ryan MD 420 [place], [place] [address] Resident Student in organized health care education/training program 02/01/21 Tatyana Dwyer MD [address] [place] [address] Assigned PCP 02/05/21 Jaime Wood MD [address] [place] [address] Assigned Sleep Provider 07/09/21 01/04/23 Christen Gallardo MD [address] [place] [address] Assigned Endocrinology Provider 11/18/21 Ana Fink MD [address] [place] [address] Fellow Gastroenterology 10/16/22 documented as of this encounter
--- OUTSIDE RECORDS SUMMARY | 2024-11-13 09:13 | XMS_ITS | Encounter Summary ---
Author Organization [place] Address [address] [place] [address]. [place] [address] Care Team Providers Care Visual C Developer Name Role Phone Tatyana Dwyer MD Primary Care P rolorettader Annalee ToussaintC Unavailable [phone] Cr Fung MD Unavailable Bianca Rubalcava RN Unavailable [phone] Wm Ryan MD Unavailable [phone] Tatyana Dwyer MD Unavailable Christen Gallardo MD Unavailable [phone] Ana Fink MD Unavailable Encounter Details Date Type Department Care Team (Late st Contact Info) Description 01/07/2024 MyC Medical Advice [facility] [address] [place] [address] Shanice Lo Social History Tobacco [...] Answer Date Recorded PHQ-2 Score 0 11/21/2023 [facility] [place] of Occupat ional Health - Occupational Stress [...] in an abandoned building, in an overnight jail, or couch-surfing.) Yes 11/16/2023 Are you worried [...] PM CDT 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 Gender Identity Male 12/19/2020 9:52 PM CDT Sexual Orientation Straight 12/19/2020 9: 52 PM CDT Travel History Travel Start Travel End [place] 10/12/2024 10/14/2024 documented as of this encounter Plan of Treatment Upcoming Encounters Date Type Department Care Team (Late st Contact Info) Description 11/20/2024 9:30 AM CDT Office Visit [facility] [address] [place] [address] Tatyana Dwyer MD [address] [place], [place] [address] 02/10/2025 11:30 AM CDT Office Visit [facility] Specialty [facility] [address] [place] [address] [address] [place] [address] Christen Gallardo MD [address] [place] [address] documented as of this encounter Visit Diagnoses Not on filedocumented in this encounter Care Teams Visual C Developer Relationship Specialty Start Date End Date Tatyana Dwyer MD [address] [place] [address] PCP - General Internal Medicine 06/01/19 Annalee Tuossaint, DU [address] [place] [address] [place] [address] Physician Downstairs Maid Physician Downstairs Maid - Medical 07/15/19 Cr Fung MD [address] [place] [address] 394 [place] [address] Urology 07/15/19 Bianca Rubalcava, RODNEY Specialty Textile Conservator Urology 07/15/19 Wm Ryan MD [address] [place] [address] Resident Student in organized health care education/training program 02/01/21 Tatyana Dwyer MD [address] [place] [address] Assigned PCP 02/05/21 Christen Gallardo MD [address] [place] [address] Assigned Endocrinology Provider 11/18/21 Ana Fink MD [address] [place] [address] Fellow Gastroenterology 10/16/22 documented as of this encounter
--- OUTSIDE RECORDS SUMMARY | 2024-11-13 09:13 | XMS_ITS | Encounter Summary ---
Author Organization [place] Address [facility] [place] [address] Care Team Providers Care Senior Dynamics Crm Developer Name Role Phone Tatyana Dwyer MD Primary Care P rovider Annalee Toussaint-C Unavailable Cr Fung MD Unavailable Bianca Rubalcava RN Unavailable [phone] Wm Ryan MD Unavailable [phone] Tatyana Dwyer MD Unavailable Christen Gallardo MD Unavailable [phone] Ana Fink MD Unavailable Encounter Details Date Type Department Care Team (Late st Contact Info) Description 01/08/2023 [facility] Medical Advice [facility] [address] [place] [address] Christen Gallardo MD [address] [place], [place] [address] Social History Tobacco Use Types Packs/Day Years [...] CDT 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 Gender Identity Male 12/19/2020 9:52 PM [...] Description 11/20/2024 9:30 AM CDT Office Visit [address] [place] [phone] Tatyana Dwyer MD [address] [place], [place] [address] 02/10/2025 11:30 AM CDT Office Visit [facility] [address] [place] [address] Christen Gallardo MD [address] [place] [address] documented as of this encounter Visit Diagnoses Not on filedocumented in this encounter Care Teams Senior Dynamics Crm Developer Relationship Specialty Start Date End Date Tatyana Dwyer MD [address] [place] [address] PCP - General Internal Medicine 06/01/19 Annalee Toussaint PA-C [address] [place] [address] [place] [address] Physician Automobile Designer Physician Automobile Designer - Medical 07/15/19 Cr Fung MD [address] [place] [address] Urology 07/15/19 Bianca Rubalcava, RN Specialty Overlock Waistline Joiner Urology 07/15/19 Wm Ryan MD [address] [place] [address] Resident Student in organized health care education/training program 02/01/21 Tatyana Dwyer MD [address] [place] [address] Assigned PCP 02/05/21 Christen Gallardo MD [address] [place] [address] Assigned Endocrinology Provider 11/18/21 Ana Fink MD [address] [place] [address] Fellow Gastroenterology 10/16/22 documented as of this encounter
--- OUTSIDE RECORDS SUMMARY | 2024-11-13 09:13 | XMS_ITS | Encounter Summary ---
Author Organization [place] Address [address] [place] [address] Care Team Providers Care Merchant Seaman Name Role Phone Tatyana Dwyer MD Primary Care P rolorettader [place] Dwyer MD Unavailable Annalee Toussaint-C Unavailable Cr Fung MD Unavailable Bianca Rubalcava RN Unavailable [phone] Keegan Montemayor MD Unavailable Un available Joselin Andrade PA-C Unavailable Steven Tatum MD Unavailable Jim Mark MD Unavailable [phone] Jaime Wood MD Unavailable [phone] Annalee Toussaint-C Unavailable [phone] Honey Jackson APRN, CNP Unavailable + [phone] Wm Ryan MD Unavailable Tatyana Dwyer MD Unavailable Amalia Agosto GC Unavailable [phone] Jaime Wood MD Unavailable [phone] Christen Gallardo MD Unavailable [phone] Ana Fink MD Unavailable Encounter Details Date Type Department Care Team (Late st Contact Info) Description 01/19/2020 MyC Medical Advice [facility] Dermatologic Surgery [address] [facility] 3rd [place] [address] [place] [address] [place], [place] [address] Social History Tobacco Use Types Packs/Day Years [...] PM CDT 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 No / Unsure 01/18/2020 1:12 PM CDT documented as of this encounter Plan of Treatment Upcoming Encounters Date Type Department Care Team (Late Contact Info) Description 11/20/2024 9:30 AM CDT Office Visit [place] [address] [place] [address] Tatyana Dwyer MD [address] [facility] [place] [address] 02/10/2025 11:30 AM CDT Office Visit [facility] Specialty [facility] [address] [facility] [address] [place] [phone] Christen Gallardo MD [address] [place] [address] documented as of this encounter Visit Diagnoses Not on filedocumented in this encounter Additional Health Concerns Infection Onset Date Last Indicated Resolved Time Rule Out COVID-19 10/25/2021 10/25/2021 10/26/2021 12:43 PM CDT COVID-19 10/25/2021 10/25/2021 11/15/2021 11:3 9 PM CDT documented as of this encounter Care Teams Merchant Seaman Relationship Specialty Start Date End Date Tatyana Dwyer MD [address] [place] [place], [place] [address] PCP - General Internal Medicine 06/01/19 Tatyana Dwyer MD [address] [place] [address] Assigned PCP 05/31/19 10/15/20 Annalee Toussaint, DUSTYC [address] [place] [address] Physician Server Assistant Physician Server Assistant - Medical 07/15/19 Cr Fung MD [address] [place] [address] 394 [place], [place] [address] Urology 07/15/19 Bianca Rubalcava, RN Specialty Consulting Project Director Urology 07/15/19 Keegan Montemayor MD Assigned Heart and Vascular Provider 04/08/20 12/27/20 Joselin Andrade PA-C 830 [place] [address] Assigned Pediatric Specialist Provider 04/08/20 07/17/20 [place] [address] [place] [address] Assigned Surgical Provider 04/08/20 07/22/21 Jim Mark MD 909 [place] [address] Assigned Musculoskeletal Provider 04/08/20 02/11/21 Jaime Wood MD [address] [place] [address] Assigned Sleep Provider 04/08/2004/08 Annalee Toussaint PA-C [address] [place] [address] Assigned OBGYN Provider 08/31/20 1 Honey Jackson APRN TALENT REP [address] [place] [address] Assigned PCP 10/16/20 02/04/21 Wm Ryan MD [address] [place] [address] Resident Student in organized health care education/training program 02/01/21 Tatyana Dwyer MD [address] [place] [address] Assigned PCP 02/05/21 Amalia Agosto GC 2450 [place] [address] Assigned OBGYN Provider 05/07/21 07/15/21 Jaime Wood MD [address] [facility] [address] [address] Assigned Sleep Provider 07/09/21 Christen Gallardo MD [address] [place] [address] Assigned Endocrinology Provider 11/18/21 Ana Fink MD [address] [place] [address] Fellow Gastroenterology 10/16/22 documented as of this encounter
--- OUTSIDE RECORDS SUMMARY | 2024-11-13 09:13 | XMS_ITS | Encounter Summary ---
Author Organization [place] Address [address] [place] [address] Care Team Providers Care Wood Scaler Name Role Phone Tatyana Dwyer MD Primary Care P rolorettader Tatyana Dwyer MD Unavailable Annalee Toussaint-C Unavailable Cr Fung MD Unavailable Bianca Rubalcava RN Unavailable [phone] Keegan Montemayor MD Unavailable Un available Joselin Andrade PA-C Unavailable Steven Tatum MD Unavailable Jim Mark MD Unavailable [phone] Jaime Wood MD Unavailable [phone] Annalee Toussaint-C Unavailable [phone] Honey Jackson APRN, CNP Unavailable + [phone] Wm Ryan MD Unavailable [phone] Tatyana Dwyer MD Unavailable Amalia Agosto GC Unavailable [phone] Jaime Wood MD Unavailable [phone] Christen Gallardo MD Unavailable [phone] Ana Fink MD Unavailable Encounter Details Date Type Department Care Team (Late st Contact Info) Description 06/25/2019 MyC Medical Advice 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 Gender Identity Male 12/19/2020 9:52 PM CDT Sexual Orientation Straight 12/19/2020 9: 52 PM CDT Travel History Travel Start Travel End [place] 10/12/2024 10/14/2024 documented as of this encounter Plan of Treatment Upcoming Encounters Date Type Department Care Team (Late st Contact Info) Description 11/20/2024 9:30 AM CDT Office Visit [facility] [address] [place] [phone] Tatyana Dwyer MD [address] [facility] [place] [address] 02/10/2025 11:30 AM CDT [facility] Visit [facility] [address] [facility] [address] [place] [phone] Christen Gallardo MD [address] [facility] [address] documented as of this encounter Visit Diagnoses Not on filedocumented in this encounter Additional Health Concerns Infection Onset Date Last Indicated Resolved Time Rule Out COVID-19 10/25/2021 10/25/2021 10/26/2021 12:43 PM CDT COVID-19 10/25/2021 10/25/2021 11/15/2021 11:3 9 PM CDT documented as of this encounter Care Teams Wood Scaler Relationship Specialty Start Date End Date Tatyana Dwyer MD [address] [place] [address] PCP - General Internal Medicine 06/01/19 Tatyana Dwyer MD [address] [place] [address] Assigned PCP 05/31/19 10/15/20 Annalee Toussaint PA-C [address] [address] Physician Activity Leader Physician Activity Leader - Medical 07/15/19 Cr Fung MD 420 [facility] 394 [place] [address] Urology 07/15/19 Bianca Rubalcava, RN Specialty Dictaphone Mechanic Urology 07/15/19 Keegan Montemayor MD Assigned Heart and Vascular Provider 04/08/20 12/27/20 Joselin Andrade PA-C [address] [place] [address] Assigned Pediatric Specialist Provider 04/08/20 07/17/20 [place] [address] [place] [address] Assigned Surgical Provider 04/08/20 07/22/21 Jim Mark MD [address] [place], [place] [address] Assigned Musculoskeletal Provider 04/08/20 02/11/21 Jaime Wood MD [address] [place], [place] [address] Assigned Sleep Provider 04/08/2004/08 Annalee Toussaint PA-C [address] [place], [place] [address] Assigned OBGYN Provider 08/31/20 Honey Jackson APRN DYNAMOMETER TUNER [address] [place], [place] [address] Assigned PCP 10/16/20 02/04/21 Wm Ryan MD 420 [place], [place] [address] Resident Student in organized health care education/training program 02/01/21 Tatyana Dwyer MD [address] [place], [place] [address] Assigned PCP 02/05/21 Amalia Agosto GC 2450 [place], [place] [address] Assigned OBGYN Provider 05/07/21 07/15/21 Jaime Wood MD [address] [place] [address] Assigned Sleep Provider 07/09/21 Christen Gallardo MD [address] [place] [address] Assigned Endocrinology Provider 11/18/21 Ana Fink MD [address] [place] [address] Fellow Gastroenterology 10/16/22 documented as of this encounter
--- OUTSIDE RECORDS SUMMARY | 2024-11-13 09:13 | XMS_ITS | Encounter Summary ---
Author Organization [place] Address [address] [place] [address]. [place] [address] Care Team Providers Care Helmet Hat Sweatband Puncher Name Role Phone Tatyana Dwyer MD Primary Care P rovider Annalee Toussaint-C Unavailable [phone] Cr Fung MD Unavailable Bianca Rubalcava RN Unavailable [phone] Wm Ryan MD Unavailable Tatyana Dwyer MD Unavailable Christen Gallardo MD Unavailable [phone] Ana Fink MD Unavailable Encounter Details Date Type Department Care Team (Late st Contact Info) Description 09/24/2023 MyC Medical Advice [facility] [address] [address] Nita Esteban, RN Social History [...] PM CDT 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 Pt is busy at the moment but said they can [place] to schedule a 6 month follow up visit with Dr. Gallardo sometime in April. documented in this encounter Plan of Treatment Upcoming Encounters Date Type Department Care Team (Late st Contact Info) Description 11/20/2024 9:30 AM CDT Office Visit [address] [place] [phone] Tatyana Dwyer MD [address] [place], [place] [address] 02/10/2025 11:30 AM CDT Office Visit [address] [place] [phone] Christen Gallardo MD 75[address] [place] [address] documented as of this encounter Visit Diagnoses Not on filedocumented in this encounter Care Teams Helmet Hat Sweatband Puncher Relationship Specialty Start Date End Date Tatyana Dwyer MD [address] [place] [address] PCP - General Internal Medicine 06/01/19 Annalee Toussaint PA-C [address] [place] [address] [place] [address] Physician Communication Signals Intelligence Physician Communication Signals Intelligence - Medical 07/15/19 Cr Fung MD [address] [place] [address]200[address] Urology 07/15/19 Bianca Rubalcava, RN Specialty Foreman/Project Manager Urology 07/15/19 Wm Ryan MD [address] [place] [address] Resident Student in organized health care education/training program 02/01/21 Tatyana Dwyer MD [address] [place] [address] Assigned PCP 02/05/21 Christen Gallardo MD [address] [place] [address] Assigned Endocrinology Provider 11/18/21 Ana Fink MD [address] [place] [address]389[address] Fellow Gastroenterology 10/16/22 documented as of this encounter
--- OUTSIDE RECORDS SUMMARY | 2024-11-13 09:13 | XMS_ITS | Encounter Summary ---
Author Organization [place] Address [address] [place] [address] Care Team Providers Care Dyno Technician Name Role Phone Tatyana Dwyer MD Primary Care P rolorettader [place] Dwyer MD Unavailable Annalee Toussaint-C Unavailable [phone] Cr Fung MD Unavailable [phone] Bianca Rubalcava RN Unavailable [phone] Keegan Montemayor MD Unavailable Un available Joselin Andrade PA-C Unavailable Steven Tatum MD Unavailable Jim Mark MD Unavailable [phone] Jaime Wood MD Unavailable [phone] Annalee Toussaint-C Unavailable [phone] Honey Jackson APRN, CNP Unavailable + [phone] Wm Ryan MD Unavailable Tatyana Dwyer MD Unavailable Amalia Agosto GC Unavailable [phone] Jaime Wood MD Unavailable [phone] Christen Gallardo MD Unavailable [phone] Ana Fink MD Unavailable Encounter Details Date Type Department Care Team (Late st Contact Info) Description 01/25/2020 MyC Medical Advice [facility] Dermatologic Surgery [address] [facility] 3rd [place] [address] [place] [address] [place], [place] [address] Social History Tobacco Use Types Packs/Day Years [...] PM CDT 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 No / Unsure 01/18/2020 1:12 PM CDT documented as of this encounter Plan of Treatment Upcoming Encounters Date Type Department Care Team (Late Contact Info) Description 11/20/2024 9:30 AM CDT Office Visit [place] [address] [place] [phone] Tatyana Dwyer MD [address] [facility] [address] 02/10/2025 11:30 AM CDT Office Visit [facility] Specialty [facility] [address] [facility] [address] [place] [phone] Christen Gallardo MD [address] [address] [address] documented as of this encounter Visit Diagnoses Not on filedocumented in this encounter Additional Health Concerns Infection Onset Date Last Indicated Resolved Time Rule Out COVID-19 10/25/2021 10/25/2021 10/26/2021 12:43 PM CDT COVID-19 10/25/2021 10/25/2021 11/15/2021 11:3 9 PM CDT documented as of this encounter Care Teams Dyno Technician Relationship Specialty Start Date End Date Tatyana Dwyer MD [address] [place], [place] [address] PCP - General Internal Medicine 06/01/19 Tatyana Dwyer MD [address] [place] [address] Assigned PCP 05/31/19 10/15/20 Annalee Toussaint, DUSTYC [address] [place] [address] Physician Lpn Rn Hospice Physician Lpn Rn Hospice - Medical 07/15/19 Cr Fung MD [address] [place] [address] 394 [place], [place] [address] Urology 07/15/19 Bianca Rubalcava, RN Specialty Tax Collector Urology 07/15/19 Keegan Montemayor MD Assigned Heart and Vascular Provider 04/08/20 12/27/20 Joselin Andrade PA-C 830 [place] [address] Assigned Pediatric Specialist Provider 04/08/20 07/17/20 [place] [address] [place] [address] Assigned Surgical Provider 04/08/20 07/22/21 Jim Mark MD 909 [place] [address] Assigned Musculoskeletal Provider 04/08/20 02/11/21 Jaime Wood MD [address] [place] [address] Assigned Sleep Provider 04/08/2004/08 Annalee Toussaint PA-C [address] [place] [address] Assigned OBGYN Provider 08/31/20 1 Honey Jackson APRN [employer] [address] [place] [address] Assigned PCP 10/16/20 02/04/21 Wm Ryan MD [address] [place] [address] Resident Student in organized health care education/training program 02/01/21 Tatyana Dwyer MD [address] [place] [address] Assigned PCP 02/05/21 Amalia Agosto GC 2450 [place] [address] Assigned OBGYN Provider 05/07/21 07/15/21 Jaime Wood MD 6[address] [facility] [address] [address] Assigned Sleep Provider 07/09/21 Christen Gallardo MD [address] [place] [address] Assigned Endocrinology Provider 11/18/21 Ana Fink MD [address] [place] [address] Fellow Gastroenterology 10/16/22 documented as of this encounter
--- OUTSIDE RECORDS SUMMARY | 2024-11-13 09:13 | XMS_ITS | Encounter Summary ---
Author Organization [place] Address [facility] [place] [address] Care Team Providers Care Legal Internship Name Role Phone Tatyana Dwyer MD Primary Care P rovider Annalee Toussaint PA-C Unavailable [phone] Cr Fung MD Unavailable [phone] Bianca Rubalcava RN Unavailable [phone] Wm Ryan MD Unavailable Tatyana Dwyer MD Unavailable Jaime Wood MD Unavailable Christen Gallardo MD Unavailable [phone] Ana Fink MD Unavailable Reason for Visit * Reason Onset Date Comments Call Back 08/17/2021 Encounter Details Date Type Department Care Team (Late st Contact Info) Description 08/17/[address] [place] [address] Dory Thompson MD [address] [place] [address] Call Back Social History Tobacco Use [...] Answer Date Recorded PHQ-2 Score 0 08/18/2024 [facility] - Occupational [...] PM CDT 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 No / Unsure 03/26/2023 8:50 PM CDT documented as of this encounter Miscellaneous Notes * Telephone Encounter - Kerri Flores - 08/21/2021 1:58 PM CST LVM for patient to reschedule missed appointment with Dr Ryan. STACKER * Telephone Encounter - Kerri Flores - 08/17/2021 3:23 PM CST Please call to reschedule. STACKER * Telephone Encounter - Becca Guerin - 08/17/2021 7:15 AM CST M [facility] Call Center Phone Message May a detailed message be left on voicemail: yes Reason for Call: Other: Patient Has a 9am in person appointment with Wm Ryan MD patient is sick and wants to know if provider can accommodate a video visit today? Action Taken: Other: ENDO Travel Screening: Not Applicable STACKER documented in this encounter Plan of Treatment Upcoming Encounters Date Type Department Care Team (Late st Contact Info) Description 11/20/2024 9:30 AM CDT Office Visit [address] [place] [phone] Tatyana Dwyer MD [address] [place], [place] [address] 02/10/2025 11:30 AM CDT Office Visit [facility] [address] [place] [address] [address] [place] [phone] Christen Gallardo MD [address] [place] [address] documented as of this encounter Visit Diagnoses Not on filedocumented in this encounter Additional Health Concerns Infection Onset Date Last Indicated Resolved Time Rule Out COVID-19 10/25/2021 10/25/2021 10/26/2021 12:43 PM CDT COVID-19 10/25/2021 10/25/2021 11/15/2021 11:3 9 PM CDT documented as of this encounter Care Teams Legal Internship Relationship Specialty Start Date End Date Tatyana Dwyer MD [address] [place], [place] [address] PCP - General Internal Medicine 06/01/19 Annalee Toussaint PA-C [address] [place] [address] Physician Video Editing Internship Physician Video Editing Internship - Medical 07/15/19 Cr Fung MD [address] [place] [address] [address] [place] [address] Urology 07/15/19 Bianca Rubalcava, RN Specialty Waiter/Waitress Informal Urology 07/15/19 Wm Ryan MD [address] [place] [address] Resident Student in organized health care education/training program 02/01/21 Tatyana Dwyer MD [address] [place] [address] Assigned PCP 02/05/21 Jaime Wood MD [address] [place] [address] Assigned Sleep Provider 07/09/21 01/04/23 Christen Gallardo MD [address] [place] [address] Assigned Endocrinology Provider 11/18/21 Ana Fink MD [address] [place] [id number] Fellow Gastroenterology 10/16/22 documented as of this encounter
--- OUTSIDE RECORDS SUMMARY | 2024-11-13 09:13 | XMS_ITS | Encounter Summary ---
Author Organization [place] Address [facility] [place] [address] Care Team Providers Care Electric Knife Operator Name Role Phone Tatyana Dwyer MD Primary Care P rovider Annalee Toussaint PA-C Unavailable [phone] Cr Fung MD Unavailable Bianca Rubalcava RN Unavailable [phone] Wm Ryan MD Unavailable [phone] Tatyana Dwyer MD Unavailable Christen Gallardo MD Unavailable [phone] Ana Fink MD Unavailable Encounter Details Date Type Department Care Team (Late st Contact Info) Description 05/06/2023 [facility] Medical Advice [facility] [address] [place] [address] Christen Gallardo MD [address] [place], [place] [address] Social History Tobacco Use Types Packs/Day Years [...] PM CDT 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 Gender Identity Male 12/19/2020 9:52 PM CDT Sexual Orientation Straight 12/19/2020 9: 52 PM CDT Travel History Travel Start Travel End [place] 10/12/2024 10/14/2024 documented as of this encounter Plan of Treatment Upcoming Encounters Date Type Department Care Team (Late st Contact Info) Description 11/20/2024 9:30 AM CDT Office Visit [address] [place] [phone] Tatyana Dwyer MD [address] [place], [place] [address] 02/10/2025 11:30 AM CDT Office Visit [address] [place] [phone] Christen Gallardo MD [address] [place] [address] documented as of this encounter Visit Diagnoses Not on filedocumented in this encounter Care Teams Electric Knife Operator Relationship Specialty Start Date End Date Tatyana Dwyer MD [address] [place], [place] [address] PCP - General Internal Medicine 06/01/19 Annalee Toussaint PA-C [address] [place] [address] [place] [address] Physician Artificial Intelligence Specialist Physician Artificial Intelligence Specialist - Medical 07/15/19 Cr Fung MD [address] [place] [address] Urology 07/15/19 Bianca Rubalcava, RODNEY Specialty Associate Media Director Urology 07/15/19 Wm Ryan MD [address] [place] [address] 120505 Resident Student in [facility] health care education/training program 02/01/21 Tatyana Dwyer MD [address] [place], [place] [address]367 Assigned PCP 02/05/21 Christen Gallardo MD [address] [place] [address] Assigned Endocrinology Provider 11/18/21 Ana Fink MD [address] [place] [address] [id number] Fellow Gastroenterology 10/16/22 documented as of this encounter
--- OUTSIDE RECORDS SUMMARY | 2024-11-13 09:13 | XMS_ITS | Encounter Summary ---
Author Organization [place] Address [address] [place] [address] Care Team Providers Care Teleprinter Name Role Phone Tatyana Dwyer MD Primary Care P rolorettader Tatyana Dwyer MD Unavailable Annalee Toussaint-C Unavailable Cr Fung MD Unavailable [phone] Bianca Rubalcava RN Unavailable [phone] Keegan Montemayor MD Unavailable Un available Joselin Andrade PA-C Unavailable Steven Tatum MD Unavailable Jim Mark MD Unavailable [phone] Jaime Wood MD Unavailable [phone] Annalee Toussaint-C Unavailable [phone] Honey Jackson APRN, CNP Unavailable [phone] Wm Ryan MD Unavailable Tatyana Dwyer MD Unavailable Amalia Agosto GC Unavailable [phone] Jaime Wood MD Unavailable [phone] Christen Gallardo MD Unavailable [phone] Ana Fink MD Unavailable Encounter Details Date Type Department Care Team (Late Contact Info) Description 01/26/2020 MyC Medical Advice [facility] Dermatologic Surgery [address] [facility] [address] 3rd [place] [address] Mohsen Downs MD [address] [facility] Romario kennedy 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 No / Unsure 01/18/2020 1:12 PM CDT documented as of this encounter Plan of Treatment Upcoming Encounters Date Type Department Care Team (Late Contact Info) Description 11/20/2024 9:30 AM CDT Office Visit [facility] [address] [place] [address] Tatyana Dwyer MD [address] [place] [address] 02/10/2025 11:30 AM CDT Office Visit [facility] [address] [facility] [address] [place] [phone] Christen Gallardo MD [address] [place] [address] documented as of this encounter Visit Diagnoses Not on filedocumented in this encounter Additional Health Concerns Infection Onset Date Last Indicated Resolved Time Rule Out COVID-19 10/25/2021 10/25/2021 10/26/2021 12:43 PM CDT COVID-19 10/25/2021 10/25/2021 11/15/2021 11:3 9 PM CDT documented as of this encounter Care Teams Teleprinter Relationship Specialty Start Date End Date Tatyana Dwyer MD [address] [place] [address] PCP - General Internal Medicine 06/01/19 Tatyana Dwyer MD [address] [place] [address] Assigned PCP 05/31/19 10/15/20 Annaele Toussaint, PA-C [address] [facility] [address] [place] [address] Physician Recreation Professor Physician Recreation Professor - Medical 07/15/19 Cr Fung MD [address] [place] [address] [address] [place] [address] Urology 07/15/19 Bianca Rubalcava, RN Specialty Ornamental Metal Worker Helper Urology 07/15/19 Keegan Montemayor MD Assigned Heart and Vascular Provider 04/08/20 12/27/20 Joselin Andrade PA-C [address] [place] [address] Assigned Pediatric Specialist Provider 04/08/20 07/17/20 [place] [address] [place] [address] Assigned Surgical Provider 04/08/20 07/22/21 Jim Mark MD [address] [place] [address] Assigned Musculoskeletal Provider 04/08/20 02/11/21 Jaime Wood MD [address] [place] [address] Assigned Sleep Provider 04/08/2004/08 Annalee Toussaint PA-C [address] [place] [address] Assigned OBGYN Provider 08/31/20 1 Honey Jackson APRN TERMITE CONTROL TECHNICIAN [address] [place] [address] Assigned PCP 10/16/20 02/04/21 Wm Ryan MD [address] [place] [address] Resident Student in organized health care education/training program 02/01/21 Tatyana Dwyer MD [address] [place] [address] Assigned PCP 02/05/21 Amalia Agosto GC [address] [place] [address] Assigned OBGYN Provider 05/07/21 07/15/21 Jaime Wood MD [address] [facility] 103 [place] [address] Assigned Sleep Provider 07/09/21 Christen Gallardo MD [address] [place] [address] Assigned Endocrinology Provider 11/18/21 Ana Fink MD [address] [place] [address] Fellow Gastroenterology 10/16/22 documented as of this encounter
--- OUTSIDE RECORDS SUMMARY | 2024-11-13 09:14 | XMS_ITS | Encounter Summary ---
Author Organization [place] Address [address] [place] [address]. [place] [address] Care Team Providers Care Senior Web Applications Developer Name Role Phone Tatyana Dwyer MD Primary Care P rovider Annalee Toussaint-C Unavailable [phone] Cr Fung MD Unavailable Bianca Rubalcava RN Unavailable [phone] Wm Ryan MD Unavailable Tatyana Dwyer MD Unavailable Christen Gallardo MD Unavailable [phone] Ana Fink MD Unavailable Encounter Details Date Type Department Care Team (Late st Contact Info) Description 04/03/2023 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 No / Unsure 03/26/2023 8:50 PM CDT documented as of this encounter Plan of Treatment Upcoming Encounters Date Type Department Care Team (Late st Contact Info) Description 11/20/2024 9:30 AM CDT Office Visit [address] [place] [address] Tatyana Dwyer MD [address] [place], [place] [address] 02/10/2025 11:30 AM CDT Office Visit [address] [place] [phone] Christen Gallardo MD [address] [place] [address] documented as of this encounter Visit Diagnoses Not on filedocumented in this encounter Care Teams Senior Web Applications Developer Relationship Specialty Start Date End Date Tatyana Dwyer MD [address] [place], [place] [address] PCP - General Internal Medicine 06/01/19 Annalee Toussaint PA-C [address] [facility] [address] [place] [address] Physician Health Data Analyst Physician Health Data Analyst - Medical 07/15/19 Cr Fung MD [address] [place] [address] [address] [place] [address] Urology 07/15/19 Bianca Rubalcava, RN Specialty Academic Support Assistant Urology 07/15/19 Wm Ryan MD [address] [place] [address] Resident Student in organized health care education/training program 02/01/21 Tatyana Dwyer MD [address] [place] [address] Assigned PCP 02/05/21 Christen Gallardo MD [address] [place] [address] Assigned Endocrinology Provider 11/18/21 Ana Fink MD [address] [place] [address] Fellow Gastroenterology 10/16/22 documented as of this encounter
--- OUTSIDE RECORDS SUMMARY | 2024-11-13 09:14 | XMS_ITS | Encounter Summary ---
Author Organization [place] Address [address] [place] [address] Care Team Providers Care Long Chain Quiller Tender Name Role Phone Tatyana Dwyer MD Primary Care P rovider Annalee Toussaint-C Unavailable [phone] Cr Fung MD Unavailable Bianca Rubalcava RN Unavailable [phone] Wm Ryan MD Unavailable [phone] Tatyana Dwyer MD Unavailable Christen Gallardo MD Unavailable [phone] Ana Fink MD Unavailable Encounter Details Date Type Department Care Team (Late st Contact Info) Description 06/18/2023 [facility] Medical Advice [facility] G[facility]ology Clinic [address] [address] Jailyn Crawford Social History Tobacco [...] PM CDT 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 Gender Identity Male 12/19/2020 9:52 PM CDT Sexual Orientation Straight 12/19/2020 9: 52 PM CDT Travel History Travel Start Travel End [place] 10/12/2024 10/14/2024 documented as of this encounter Plan of Treatment Upcoming Encounters Date Type Department Care Team (Late st Contact Info) Description 11/20/2024 9:30 AM CDT Office Visit [facility] [address] [facility] [address] [place] [phone] Tatyana Dwyer MD [address] [place] [address] 02/10/2025 11:30 AM CDT Office Visit [facility] [address] [place] [address] [address] [place] [phone] Christen Gallardo MD [address] [place] [address] documented as of this encounter Visit Diagnoses Not on filedocumented in this encounter Care Teams Long Chain Quiller Tender Relationship Specialty Start Date End Date Tatyana Dwyer MD [address] [place], [place] [address] PCP - General Internal Medicine 06/01/19 Annalee Toussaint PA-C [address] [facility] 500 [place] [address] Physician Color Mixer Physician Color Mixer - Medical 07/15/19 Cr Fung MD [address] [place] [address] 394 [place], [place] [address] Urology 07/15/19 Bianca Rubalcava, RN Specialty Collar Baster Jumpbasting Urology 07/15/19 Wm Ryan MD [address] [place] [address] Resident Student in organized health care education/training program 02/01/21 Tatyana Dwyer MD [address] [place], [place] 825487 Assigned PCP 02/05/21 Christen Gallardo MD [address] [place], [place] [address] Assigned Endocrinology Provider 11/18/21 Ana Fink MD [address] [place] [address]3095 Fellow Gastroenterology 10/16/22 documented as of this encounter
--- OUTSIDE RECORDS SUMMARY | 2024-11-13 09:14 | XMS_ITS | Encounter Summary ---
Author Organization [place] Address [address] [place] [address] Care Team Providers Care Billing And Insurance Coordinator Name Role Phone Tatyana Dwyer MD Primary Care P rolorettader Tatyana Dwyer MD Unavailable Annalee Toussaint PA-C Unavailable [phone] Cr Fung MD Unavailable Bianca Rubalcava RN Unavailable [phone] Keegan Montemayor MD Unavailable Un available Steven Tatum MD Unavailable Jim Mark MD Unavailable Jaime Wood MD Unavailable [phone] Annalee Toussaint PA-C Unavailable [phone] Honey Jackson APRN, CNP Unavailable + [phone] Wm Ryan MD Unavailable [phone] Tatyana Dwyer MD Unavailable Amalia Agosto GC Unavailable [phone] Jaime Wood MD Unavailable [phone] Christen Gallardo MD Unavailable [phone] Ana Fink MD Unavailable Encounter Details Date Type Department Care Team (Late st Contact Info) Description 08/23/2020 MyC Medical Advice [facility] [address] [place] [phone] Honey Jackson APRN IRISH MOSS OPERATOR [address] [place], [place] [phone] Social History Tobacco Use Types Packs/Day Years [...] PM CDT Legal Sex Male 3:08 AM INSPECTOR CONVEYOR LINE Gender Identity Male 12/19/2020 9:52 PM CDT Sexual Orientation Straight 12/19/2020 9: 52 PM CDT Travel History Travel Start Travel End [place] 10/12/2024 10/14/2024 COVID-19 Exposure Response Date Recorded In the last month, have you been in contact with someone who was confirmed or suspected to have Coronavirus / COVID-19? No / Unsure 08/23/2020 12:45 PM INSPECTOR CONVEYOR LINE documented as of this encounter Plan of Treatment Upcoming Encounters Date Type Department Care Team (Late st Contact Info) Description 11/20/2024 9:30 AM CDT Office Visit [facility] [address] [place] [phone] Tatyana Dwyer MD [address] [place], [place] [address] 02/10/2025 11:30 AM CDT Office Visit [facility] [place] [address] [facility] [address] [place] [phone] Christen Gallardo MD [address] [address] [address] documented as of this encounter Visit Diagnoses Not on filedocumented in this encounter Additional Health Concerns Infection Onset Date Last Indicated Resolved Time Rule Out COVID-19 10/25/2021 10/25/2021 10/26/2021 12:43 PM CDT COVID-19 10/25/2021 10/25/2021 11/15/2021 11:3 9 PM CDT documented as of this encounter Care Teams Billing And Insurance Coordinator Relationship Specialty Start Date End Date Tatyana Dwyer MD [address] [place] [address] PCP - General Internal Medicine 06/01/19 Tatyana Dwyer MD [address] [place] [address] Assigned PCP 05/31/19 10/15/20 Annalee Toussaint, PAMarianaC [address] [place] [address] Physician Medical/Surgery Registered Nurse Physician Medical/Surgery Registered Nurse - Medical 07/15/19 Cr Fung MD [address] [facility] [address] [place], [place] [address] Urology 07/15/19 Bianca Rubalcava, RODNEY Specialty Wood Patternmaker Urology 07/15/19 Keegan Monetmayor MD Assigned Heart and Vascular Provider 04/08/20 12/27/20 [place] [address] [place] [address] Assigned Surgical Provider 04/08/20 07/22/21 Jim Mark MD [address] [place], [place] [address] Assigned Musculoskeletal Provider 04/08/20 02/11/21 Jaime Wood MD [address] [place], [place] [address] Assigned Sleep Provider 04/08/2004/08 Annalee Toussaint, DU [address] [place], [place] [address] Assigned OBGYN Provider 08/31/20 1 Honey Jackson APRN IRISH MOSS OPERATOR [address] [place], [place] [address] Assigned PCP 10/16/20 02/04/21 Wm Ryan MD [address] [place] [address] [id number] Resident Student in organized health care education/training program 02/01/21 Tatyana Dwyer MD [address] [place], [place] [address] Assigned PCP 02/05/21 Amalia Agosto GC [address] [place], [place] [address]684 Assigned OBGYN Provider 05/07/21 07/15/21 Jaime Wood MD [address] [place] [address] Assigned Sleep Provider 07/09/21 Christen Gallardo MD [address] [place] [address] Assigned Endocrinology Provider 11/18/21 Ana Fink MD [address] [place] [address] Fellow Gastroenterology 10/16/22 documented as of this encounter
--- OUTSIDE RECORDS SUMMARY | 2024-11-13 09:14 | XMS_ITS | Encounter Summary ---
Author Organization [facility] Address [address] [place] [address] Care Team Providers Care Leach Cell Operator Name Role Phone Tatyana Dwyer MD Primary Care P rolorettader Tatyana Dwyer MD Unavailable Annalee Toussaint-C Unavailable [phone] Cr Fung MD Unavailable Bianca Rubalcava RN Unavailable [phone] Keegan Montemayor MD Unavailable Un available Joselin Andrade PA-C Unavailable Steven Tatum MD Unavailable Jim Mark MD Unavailable [phone] Jaime Wood MD Unavailable [phone] Annalee Toussaint-C Unavailable [phone] Honey Jackson APRN, CNP Unavailable + [phone] Wm Ryan MD Unavailable Tatyana Dwyer MD Unavailable Amalia Agosto GC Unavailable [phone] Jaime Wood MD Unavailable [phone] Christen Gallardo MD Unavailable [phone] Ana Fink MD Unavailable Reason for Visit * Reason Onset Date Comments Appointment 10/21/2019 Pt was having Mo hs surgery back in August That was canceled he wanted call back to discuss rescheduling Encounter Details Date Type Department Care Team (Late st Contact Info) Description 10/21/2019 Telephone Health Dermatology [address] [facility] 3rd [place] [address] Frederick Hanna MD [address] [place] [address] Appointment (Pt was having Mohs surgery [...] Answer Date Recorded PHQ-2 Score 0 08/18/2024 [facility] of Occupat ional Health - Occupational Stress [...] PM CDT Legal Sex Male 3:08 AM LINE SERVER Gender Identity Male 12/19/2020 9:52 PM CDT Sexual Orientation Straight 12/19/2020 9: 52 PM CDT Travel History Travel Start Travel End [place] 10/12/2024 10/14/2024 COVID-19 Exposure Response Date Recorded In the last 10 days, have shobha u been in contact with someone who was confirmed or suspected to have Coronavirus/COVID-19? No / Unsure 03/26/2023 8:50 PM CDT documented as of this encounter Miscellaneous Notes * Telephone Encounter - Kasey Balderas - 10/28/2019 4:00 PM CDT Derm Surg Nellie- op Data Management Manager called the patient to schedule excision with Dr. Tatum. The number [phone] was left on voicemail for the patient to return the call and schedule the procedure. Ciara Balderas Periop Derm/Surg Data Management Manager [phone] * Telephone Encounter - Isabela Blake LPN [...] Carolyn Cheung - 10/21/2019 2:33 PM CDT [facility] Phone Message May a [...] Description 11/20/2024 9:30 AM CDT Office Visit [address] [place] [address] Tatyana Dwyer MD [address] [place], [place] [address] 02/10/2025 11:30 AM CDT Office Visit [facility] [address] [facility] [address] [place] [phone] Christen Gallardo MD [address] [place] [address] documented as of this encounter Visit Diagnoses Not on filedocumented in this encounter Additional Health Concerns Infection Onset Date Last Indicated Resolved Time Rule Out COVID-19 10/25/2021 10/25/2021 10/26/2021 12:43 PM CDT COVID-19 10/25/2021 10/25/2021 11/15/2021 11:3 9 PM CDT documented as of this encounter Care Teams Leach Cell Operator Relationship Specialty Start Date End Date Tatyana Dwyer MD [address] [place], [place] [address] PCP - General Internal Medicine 06/01/19 Tatyana Dwyer MD [address] [place] [address] Assigned PCP 05/31/19 10/15/20 Annalee Toussaint PA-C [address] [place] [address]24[address] Physician Needle Loom Tender Physician Needle Loom Tender - Medical 07/15/19 Cr Fung MD 420 [facility] 394 [place], [place] 4730[address] Urology 07/15/19 Bianca Rubalcava, RN Specialty Consulting Services Manager Urology 07/15/19 Keegan Montemayor MD Assigned Heart and Vascular Provider 04/08/20 12/27/20 Joselin Andrade PA-C [address] [place] [address] Assigned Pediatric Specialist Provider 04/08/20 07/17/20 [place] [address] [place], [place] [address] Assigned Surgical Provider 04/08/20 07/22/21 Jim Mark MD [address] [place] [address] 099025 Assigned Musculoskeletal Provider 04/08/20 02/11/21 Jaime Wood MD [address] [place], [place] 843755 Assigned Sleep Provider 04/08/2004/08 Annalee Toussaint PA-C [address] [place], [place] 7623[address] Assigned OBGYN Provider 08/31/20 1 Honey Jackson APRN MECHANICAL SUPERVISOR [address] [place], [place] [address] Assigned PCP 10/16/20 02/04/21 Wm Ryan MD [address] [place] [address] 447525 Resident Student in organized health care education/training program 02/01/21 Tatyana Dwyer MD [address] [place] [address] Assigned PCP 02/05/21 Amalia Agosto GC 2450 [place], [place] 453444 Assigned OBGYN Provider 05/07/21 07/15/21 Jaime Wood MD [address] 836915 Assigned Sleep Provider 07/09/21 Christen Gallardo MD [address] [place] [address]435 Assigned Endocrinology Provider 11/18/21 Ana Fink MD [address] [place] [address] 714705 Fellow Gastroenterology 10/16/22 documented as of this encounter
--- OUTSIDE RECORDS SUMMARY | 2024-11-13 09:14 | XMS_ITS | Encounter Summary ---
Author Organization [facility] Address [address] [place] [address] Care Team Providers Care Fur Polisher Name Role Phone Tatyana Dwyer MD Primary Care P rolorettader Tatyana Dwyer MD Unavailable Annalee Toussaint PA-C Unavailable [phone] Cr Fung MD Unavailable [phone] Bianca Rubalcava RN Unavailable [phone] Keegan Montemayor MD Unavailable Un available Steven Tatum MD Unavailable Jim Mark MD Unavailable [phone] Jaime Wood MD Unavailable [phone] Annalee Toussaint PA-C Unavailable [phone] Honey Jackson APRN, CNP Unavailable + [phone] Wm Ryan MD Unavailable [phone] Tatyana Dwyer MD Unavailable Amalia Agosto GC Unavailable [phone] Jaime Wood MD Unavailable [phone] Christen Gallardo MD Unavailable [phone] Ana Fink MD Unavailable Encounter Details Date Type Department Care Team (Late st Contact Info) Description 07/28/2020 MyC Medical Advice [facility] [address] [facility] [address] 5th [place] [address] Hill Spears MD 420 [facility] 741 [place] [address] Social History Tobacco Use Types Packs/Day Years [...] PM CDT Legal Sex Male 3:08 AM GYNECOLOGIST Gender Identity Male 12/19/2020 9:52 PM CDT Sexual Orientation Straight 12/19/2020 9: 52 PM CDT Travel History Travel Start Travel End [place] 10/12/2024 10/14/2024 documented as of this encounter Plan of Treatment Upcoming Encounters Date Type Department Care Team (Late st Contact Info) Description 11/20/2024 9:30 AM CDT Office Visit [facility] [address] [place] [phone] Tatyana Dwyer MD [address] [place], [place] [address] 02/10/2025 11:30 AM CDT Office Visit [address] [place] [address] Christen Gallardo MD 8352 [facility] [place] [address] documented as of this encounter Visit Diagnoses Not on filedocumented in this encounter Additional Health Concerns Infection Onset Date Last Indicated Resolved Time Rule Out COVID-19 10/25/2021 10/25/2021 10/26/2021 12:43 PM CDT COVID-19 10/25/2021 10/25/2021 11/15/2021 11:3 9 PM CDT documented as of this encounter Care Teams Fur Polisher Relationship Specialty Start Date End Date Tatyana Dwyer MD [address] [place] [address] PCP - General Internal Medicine 06/01/19 Tatyana Dwyer MD [address] [place] [address] Assigned PCP 05/31/19 10/15/20 Annalee Toussaint, DUSTYC 6[address] [facility] [address] 925525 Physician Safety Aide Physician Safety Aide - Medical 07/15/19 Cr Fung MD [address] [place] [address] 394 [place], [place] 597395 Urology 07/15/19 Bianca Rubalcava, RN Specialty Trailer Rental Clerk Urology 07/15/19 Keegan Montemayor MD Assigned Heart and Vascular Provider 04/08/20 12/27/20 [place] [address] [place] [address] Assigned Surgical Provider 04/08/20 07/22/21 Jim Mark MD [address] [place] [address] 492815 Assigned Musculoskeletal Provider 04/08/20 02/11/21 Jaime Wood MD [address] [place], [place] 602415 Assigned Sleep Provider 04/08/2004/08 Annalee Toussaint PA-C [address] [place], [place] 497435 Assigned OBGYN Provider 08/31/20 Honey Jackson APRN [facility] [address] [place] [address] Assigned PCP 10/16/20 02/04/21 Wm Ryan MD [address] [place] [address] 616535 Resident Student in organized health care education/training program 02/01/21 Tatyana Dwyer MD [address] [place] [address] Assigned PCP 02/05/21 Amalia Agosto GC 2450 [place], [place] 133514 Assigned OBGYN Provider 05/07/21 07/15/21 Jaime Wood MD [address] [place], [place] 541735 Assigned Sleep Provider 07/09/21 Christen Gallardo MD [address] [place] [address] Assigned Endocrinology Provider 11/18/21 Ana Fink MD [address] [place] [address] Fellow Gastroenterology 10/16/22 documented as of this encounter
--- OUTSIDE RECORDS SUMMARY | 2024-11-13 09:14 | XMS_ITS | Encounter Summary ---
Author Organization [place] Address [facility] [place] [address] Care Team Providers Care Assistant Hairstylist Name Role Phone Tatyana Dwyer MD Primary Care P rovider Annalee Toussaint-C Unavailable Cr Fung MD Unavailable [phone] Bianca Rubalcava RN Unavailable [phone] Wm Ryan MD Unavailable Tatyana Dwyer MD Unavailable Christen Gallardo MD Unavailable [phone] Ana Fink MD Unavailable Encounter Details Date Type Department Care Team (Late st Contact Info) Description 03/15/2023 [facility] Medical Advice [facility] [address] 200 [place] [address] Christen Gallardo MD 5303 [place], [place] 8064[address] Social History Tobacco Use Types Packs/Day Years [...] PM CDT Legal 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 Gender Identity Male 12/19/2020 9:52 PM CDT Sexual Orientation Straight 12/19/2020 9: 52 PM CDT Travel History Travel Start Travel End [place] 10/12/2024 10/14/2024 documented as of this encounter Plan of Treatment Upcoming Encounters Date Type Department Care Team (Late st Contact Info) Description 11/20/2024 9:30 AM CDT Office Visit [address] [place] [address] Tatyana Dwyer MD [address] [place], [place] [address]37 02/10/2025 11:30 AM CDT Office Visit [address] [place] [phone] Christen Gallardo MD [address] [facility] [place] [address] documented as of this encounter Visit Diagnoses Not on filedocumented in this encounter Care Teams Assistant Hairstylist Relationship Specialty Start Date End Date Tatyana Dwyer MD [address] [place], [place] 254337 PCP - General Internal Medicine 06/01/19 Annalee Toussaint PA-C [address] [place] [address] [place] [address] Physician Dynamics Ax Technical Architect Physician Dynamics Ax Technical Architect - Medical 07/15/19 Cr Fung MD [address] [place] [address] Urology 07/15/19 Bianca Rubalcava, RODNEY Specialty Looping Machine Operator Urology 07/15/19 Wm Ryan MD [address] [place] [address] 402275 Resident Student in [facility] health care education/training program 02/01/21 Tatyana Dwyer MD [address] [place], [place] 455167 Assigned PCP 02/05/21 Christen Gallardo MD [address] [place] 8[address]395 Assigned Endocrinology Provider 11/18/21 Ana Fink MD [address] [place] [address] 252265 Fellow Gastroenterology 10/16/22 documented as of this encounter
--- OUTSIDE RECORDS SUMMARY | 2024-11-13 09:14 | XMS_ITS | Encounter Summary ---
Author Organization [facility] Address [address] [place] [address] Care Team Providers Care Automotive Service Manager Name Role Phone Tatyana Dwyer MD Primary Care P rolorettader Tatyana Dwyer MD Unavailable Annalee Toussaint PA-C Unavailable Cr Fung MD Unavailable [phone] Bianca Rubalcava RN Unavailable [phone] Keegan Montemayor MD Unavailable Un available Steven Tatum MD Unavailable Jim Mark MD Unavailable Jaime Wood MD Unavailable Annalee Toussaint PA-C Unavailable [phone] Honey Jackson APRN, CNP Unavailable + [phone] Wm Ryan MD Unavailable [phone] Tatyana Dwyer MD Unavailable Amalia Agosto GC Unavailable [phone] Jaime Wood MD Unavailable [phone] Christen Gallardo MD Unavailable [phone] Ana Fink MD Unavailable Reason for Visit * Reason Onset Date Comments Refill Request 10/03/2020 nebivolol (BYSTO LIC) 2.5 MG tablet Encounter Details Date Type Department Care Team (Late st Contact Info) Description 10/03/2020 Refill [facility] [address] [place] [address] Tatyana Dwyer MD [address] [place] [address] Refill Request (nebivolol (BYSTOLIC) 2.5 MG tablet) [...] PM CDT Legal Sex Male 3:08 AM SHIFT PRODUCTION SUPERVISOR Gender Identity Male 12/19/2020 9:52 PM CDT Sexual Orientation Straight 12/19/2020 9: 52 PM CDT Travel History Travel Start Travel End [place] 10/12/2024 10/14/2024 documented as of this encounter Miscellaneous Notes * Telephone Encounter - Barbara Ambrose RN - 10/05/2020 3:18 PM CDT Medication refill denied, previously sent to different [facility]'s location. Should be available refill on file. documented in this encounter Plan of Treatment Upcoming Encounters Date Type Department Care Team (Late st Contact Info) Description 11/20/2024 9:30 AM CDT Office Visit [facility] [address] [place] [phone] Tatyana Dwyer MD [address] [place] [address] 02/10/2025 11:30 AM CDT Office Visit [facility] [address] [facility] [address] [place] [phone] Christen Gallardo MD 6401 [place], [place] 629[address] documented as of this encounter Visit Diagnoses Diagnosis Tachycardia Tachycardia, unspecified HTN, goal below 140/90 Unspecified essential hypertension documented in this encounter Additional Health Concerns Infection Onset Date Last Indicated Resolved Time Rule Out COVID-19 10/25/2021 10/25/2021 10/26/2021 12:43 PM CDT COVID-19 10/25/2021 10/25/2021 11/15/2021 11:3 9 PM CDT documented as of this encounter Care Teams Automotive Service Manager Relationship Specialty Start Date End Date Tatyana Dwyer MD [address] [place] [address] PCP - General Internal Medicine 06/01/19 Tatyana Dwyer MD [address] [place] [address] Assigned PCP 05/31/19 10/15/20 Annalee Toussaint PA-C [address] [facility] 500 [place] [address] Physician Chief Pilot Physician Chief Pilot - Medical 07/15/19 Cr Fung MD 420 [facility] 394 [place] [address] Urology 07/15/19 Bianca Rubalcava, RN Specialty Cash Shortage Investigator Urology 07/15/19 Keegan Montemayor MD Assigned Heart and Vascular Provider 04/08/20 12/27/20 [place] [address] [place] [address] Assigned Surgical Provider 04/08/20 07/22/21 Jim Mark MD 909 [place] [address] Assigned Musculoskeletal Provider 04/08/20 02/11/21 Jaime Wood MD [address] [place] [address] Assigned Sleep Provider 04/08/2004/08 Annalee Toussaint, PA-C [address] [place], [place] [address] Assigned OBGYN Provider 08/31/20 1 Honey Jackson APRN DIESEL INSPECTOR [address] [place], [place] 450797 Assigned PCP 10/16/20 02/04/21 Wm Ryan MD 420 [place] [address] Resident Student in organized health care education/training program 02/01/21 Tatyana Dwyer MD [address] [place] [address] Assigned PCP 02/05/21 Amalia Agosto GC 2450 [place] [address] Assigned OBGYN Provider 05/07/21 07/15/21 Jaime Wood MD 6363 [facility] [address] [address] Assigned Sleep Provider 07/09/21 Christen Gallardo MD [address] [place] [address] Assigned Endocrinology Provider 11/18/21 Ana Fink MD [address] [place] [address] 320955 Fellow Gastroenterology 10/16/22 documented as of this encounter
--- OUTSIDE RECORDS SUMMARY | 2024-11-13 09:14 | XMS_ITS | Encounter Summary ---
Author Organization [facility] Address [facility] [place] [address] Care Team Providers Care Tool Straightener Name Role Phone Tatyana Dwyer MD Primary Care P rovider Annalee Toussaint-C Unavailable [phone] Cr Fung MD Unavailable Bianca Rubalcava RN Unavailable [phone] Wm Ryan MD Unavailable [phone] Tatyana Dwyer MD Unavailable Christen Gallardo MD Unavailable [phone] Ana Fink MD Unavailable Encounter Details Date Type Department Care Team (Late st Contact Info) Description 06/24/2023 [facility] [place] [facility] [address] [address] May Farah Social History Tobacco [...] PM CDT Legal 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 Gender Identity Male 12/19/2020 9:52 PM CDT Sexual Orientation Straight 12/19/2020 9: 52 PM CDT Travel History Travel Start Travel End [place] 10/12/2024 10/14/2024 documented as of this encounter Plan of Treatment Upcoming Encounters Date Type Department Care Team (Late st Contact Info) Description 11/20/2024 9:30 AM CDT Office Visit [facility] 303 [facility] [address] [place] [address] Tatyana Dwyer MD [address] [place] [address] 02/10/2025 11:30 AM CDT Office Visit [facility] [address] [place] [address] [address] [place] [phone] Christen Gallardo MD [address] [place] [address] documented as of this encounter Visit Diagnoses Not on filedocumented in this encounter Care Teams Tool Straightener Relationship Specialty Start Date End Date Tatyana Dwyer MD [address] [place], [place] 822997 PCP - General Internal Medicine 06/01/19 Annalee Toussaint PA-C [address] [facility] 500 [place], [place] 89[address] Physician Manager Business Intelligence Physician Manager Business Intelligence - Medical 07/15/19 Cr Fung MD [address] [place] [address] 394 [place], [place] 928525 Urology 07/15/19 Bianca Rubalcava, RN Specialty Station Operator Urology 07/15/19 Wm Ryan MD [address] [place] [address] 598505 Resident Student in organized health care education/training program 02/01/21 Tatyana Dwyer MD [address] [place], [place] 751387 Assigned PCP 02/05/21 Christen Gallardo MD [address] [place], [place] [address] Assigned Endocrinology Provider 11/18/21 Ana Fink MD [address] [place] [address] Fellow Gastroenterology 10/16/22 documented as of this encounter
--- OUTSIDE RECORDS SUMMARY | 2024-11-13 09:14 | XMS_ITS | Encounter Summary ---
Author Organization [place] Address [address] [place] [address] Care Team Providers Care Police Lieutenant Precinct Name Role Phone Tatyana Dwyer MD Primary Care P rovider Annalee Toussaint-C Unavailable [phone] rC Fung MD Unavailable [phone] Bianca Rubalcava RN Unavailable [phone] Wm Ryan MD Unavailable Tatyana Dwyer MD Unavailable Christen Gallardo MD Unavailable [phone] Ana Fink MD Unavailable Encounter Details Date Type Department Care Team (Late st Contact Info) Description 06/18/2023 [facility] [place] Medical Advice [facility] [address] [address] Jailyn Crawford Social History Tobacco [...] PM CDT Legal Sex Male 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 SPECIALIST Gender Identity Male 12/19/2020 9:52 PM CDT Sexual Orientation Straight 12/19/2020 9: 52 PM CDT Travel History Travel Start Travel End [place] 10/12/2024 10/14/2024 documented as of this encounter Plan of Treatment Upcoming Encounters Date Type Department Care Team (Late st Contact Info) Description 11/20/2024 9:30 AM CDT Office Visit [facility] 303 [facility] [address] [place] [address] Tatyana Dwyer MD [address] [place] [address] 02/10/2025 11:30 AM CDT Office Visit [facility] [address] [place] [address] [address] [place] [address] Christen Gallardo MD 6403 [place] [address] documented as of this encounter Visit Diagnoses Not on filedocumented in this encounter Care Teams Police Lieutenant Precinct Relationship Specialty Start Date End Date Tatyana Dwyer MD [address] [place], [place] 268737 PCP - General Internal Medicine 06/01/19 Annalee Toussaint PA-C 6363 [facility] 500 [place] [address] Physician Mri Manager Physician Mri Manager - Medical 07/15/19 Cr Fung MD [address] [place] [address] 394 [place], [place] [address]25 Urology 07/15/19 Bianca Rubalcava, RN Specialty Engine Repairer Service Urology 07/15/19 Wm Ryan MD [address] [place] [address] 746435 Resident Student in organized health care education/training program 02/01/21 Tatyana Dwyer MD [address] [place], [place] 973207 Assigned PCP 02/05/21 Christen Gallardo MD [address] [place] [place], [place] 37[address]75 Assigned Endocrinology Provider 11/18/21 Ana Fink MD [address] [place] [address] 959245 Fellow Gastroenterology 10/16/22 documented as of this encounter
--- OUTSIDE RECORDS SUMMARY | 2024-11-13 09:14 | XMS_ITS | Encounter Summary ---
Author Organization [place] Address [address] [place] [address]. [place] [address] Care Team Providers Care Duct Layer Name Role Phone Tatyana Dwyer MD Primary Care P rovider Annalee Toussaint-C Unavailable [phone] Cr Fung MD Unavailable Bianca Rubalcava RN Unavailable [phone] Wm Ryan MD Unavailable Tatyana Dwyer MD Unavailable Christen Gallardo MD Unavailable [phone] Ana Fink MD Unavailable Encounter Details Date Type Department Care Team (Late st Contact Info) Description 07/01/2023 [facility] [place]ice [facility] [address] [address] Nita Esteban, RN Social History [...] PM CDT 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 Gender Identity Male 12/19/2020 9:52 PM CDT Sexual Orientation Straight 12/19/2020 9: 52 PM CDT Travel History Travel Start Travel End [place] 10/12/2024 10/14/2024 documented as of this encounter Plan of Treatment Upcoming Encounters Date Type Department Care Team (Late st Contact Info) Description 11/20/2024 9:30 AM CDT Office Visit [facility] 303 [facility] [address] [place] [phone] Tatyana Dwyer MD [address] [place] [address] 02/10/2025 11:30 AM CDT Office Visit [facility] [address] [place] [address] [address] [place] [address] Christen Gallardo MD 6407 [place] [address] documented as of this encounter Visit Diagnoses Not on filedocumented in this encounter Care Teams Duct Layer Relationship Specialty Start Date End Date Tatyana Dwyer MD [address] [place], [place] 707867 PCP - General Internal Medicine 06/01/19 Annalee Toussaint PA-C 6363 [facility] 500 [place] [address] Physician Ice Scraper Physician Ice Scraper - Medical 07/15/19 Cr Fung MD [address] [place] [address] 394 [place], [place] 865175 Urology 07/15/19 Bianca Rubalcava, RN Specialty Salt Refiner Urology 07/15/19 Wm Ryan MD [address] [place] [address] [id number] Resident Student in organized health care education/training program 02/01/21 Tatyana Dwyer MD [address] [place], [place] [address]27 Assigned PCP 02/05/21 Christen Gallardo MD [address] [place] [place], [place] 837535 Assigned Endocrinology Provider 11/18/21 Ana Fink MD [address] [place] [address] [id number] Fellow Gastroenterology 10/16/22 documented as of this encounter
--- OUTSIDE RECORDS SUMMARY | 2024-11-13 09:14 | XMS_ITS | Encounter Summary ---
Author Organization [place] Address [facility] [place] [address] Care Team Providers Care Dairy Husbandry Worker Name Role Phone Tatyana Dwyer MD Primary Care P rovider Annalee Toussaint PA-C Unavailable [phone] Cr Fung MD Unavailable Bianca Rubalcava RN Unavailable [phone] Wm Ryan MD Unavailable Tatyana Dwyer MD Unavailable Christen Gallardo MD Unavailable [phone] Ana Fink MD Unavailable Encounter Details Date Type Department Care Team (Late st Contact Info) Description 05/22/2023 [facility] [address] [place] [address] Christen Gallardo MD [address] [place], [place] [address] Social History Tobacco Use Types Packs/Day Years [...] PM CDT 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 Gender Identity Male 12/19/2020 9:52 PM CDT Sexual Orientation Straight 12/19/2020 9: 52 PM CDT Travel History Travel Start Travel End [place] 10/12/2024 10/14/2024 documented as of this encounter Plan of Treatment Upcoming Encounters Date Type Department Care Team (Late st Contact Info) Description 11/20/2024 9:30 AM CDT Office Visit [address] [place] [phone] Tatyana Dwyer MD [address] [place], [place] [address] 02/10/2025 11:30 AM CDT Office Visit [address] [place] [phone] Christen Gallardo MD [address] [facility] [address] documented as of this encounter Visit Diagnoses Not on filedocumented in this encounter Care Teams Dairy Husbandry Worker Relationship Specialty Start Date End Date Tatyana Dwyer MD [address] [place], [place] [address] PCP - General Internal Medicine 06/01/19 Annalee Toussaint PA-C [address] [place] [address] [place] [address] Physician Commercial Loan Assistant Physician Commercial Loan Assistant - Medical 07/15/19 Cr Fung MD [address] [place] [address] Urology 07/15/19 Bianca Rubalcava, RODNEY Specialty Reinforcing Steel Placer Urology 07/15/19 Wm Ryan MD [address] [place] [address] [id number] Resident Student in [facility] health care education/training program 02/01/21 Tatyana Dwyer MD [address] [place], [place] 747767 Assigned PCP 02/05/21 Christen Gallardo MD [address] [place] [place] [address] Assigned Endocrinology Provider 11/18/21 Ana Fink MD [address] [place] [address] [id number] Fellow Gastroenterology 10/16/22 documented as of this encounter
--- OUTSIDE RECORDS SUMMARY | 2024-11-13 09:14 | XMS_ITS | Encounter Summary ---
Author Organization [place] Address [address] [place] [address] Care Team Providers Care Power Hair Clipper Name Role Phone Tatyana Dwyer MD Primary Care P rovider Annalee Toussaint PA-C Unavailable [phone] Cr Fung MD Unavailable Bianca Rubalcava RN Unavailable [phone] Wm Ryan MD Unavailable Tatyana Dwyer MD Unavailable Christen Gallardo MD Unavailable [phone] Ana Fink MD Unavailable Reason for Referral * Consultation (Routine: Next available opening) - Closed Specialty Diagnoses / Procedures Referred By Contdonte t Referred To Contact Diagnoses Family history of colon cancer Manish Ryan MD [facility] [address] [address], [place] [address] Phone: tel: fax: Referral ID Status Reason Start Date Expiration Date Visits Re quested Visits Authorized [id number] Closed 06/14/2023 06/13/2024 1 1 Question Answer Service: Screening Sedation Concerns: No medical conditions affecting sedation Sedation Type: Moderate/Conscious Sedation Preferred Location: [facility] Scheduling Instructions: [facility] will call you to coordinate your care as prescribed by the provider. If you don t hear from a senior human resources representative within 2 business days, please call . Comments Please be aware that coverage of these services is subject to the terms and limitations of your health insurance plan. Call member services at your health plan with any benefit or coverage questions. [facility] will call you to coordinate your care as prescribed by the provider. If you don t hear from a senior human resources representative within 2 business days, please call . 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 Gender Identity Male 12/19/2020 9:52 PM CDT Sexual Orientation Straight 12/19/2020 9: 52 PM CDT Travel History Travel Start Travel End [place] 10/12/2024 10/14/2024 documented as of this encounter Plan of Treatment Upcoming Encounters Date Type Department Care Team (Late st Contact Info) Description 11/20/2024 9:30 AM CDT Office Visit [facility] [address] [place] [phone] Tatyana Dwyer MD [address] [place], [place] [address] 02/10/2025 11:30 AM CDT Office Visit [facility] [address] [facility] [address] [place] [phone] Christen Gallardo MD [address] [place] [address] Scheduled Referrals Name Type Priority Associated Diagnoses Order Schedule Colonoscopy Screening Kiln Tester Referral Referral Routine: Next available opening Family history of colon cancer Expected: 06/14/2023 (Approximate), Expires: 06/14/2024 documented as of this encounter Visit Diagnoses Diagnosis Family history of colon cancer- Primary Family history of malignant neoplasm of gastrointestinal tract documented in this encounter Care Teams Power Hair Clipper Relationship Specialty Start Date End Date Tatyana Dwyer MD [address] [place] [address] PCP - General Internal Medicine 06/01/19 Annalee Toussaint PA-C [address] [facility] [address] [place] [address] Physician Cyber Special Agent Physician Cyber Special Agent - Medical 07/15/19 Cr Fung MD [address] [place] [address] [address] [place] [address] Urology 07/15/19 Bianca Rubalcava, RODNEY Specialty Rounding Machine Operator Urology 07/15/19 Wm Ryan MD [address] [place], [place] 6[address] Resident Student in [facility] health care education/training program 02/01/21 Tatyana Dwyer MD [address] [place] [address] Assigned PCP 02/05/21 Christen Gallardo MD [address] [place], [place] [address] Assigned Endocrinology Provider 11/18/21 Ana Fink MD [address] [place] [address] [id number] Fellow Gastroenterology 10/16/22 documented as of this encounter
--- OUTSIDE RECORDS SUMMARY | 2024-11-13 09:14 | XMS_ITS | Clinical Summary ---
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 Gender Identity Not on file Sexual Orientation [...] 03/27/2020 6:07 PM CDT Plan of Treatment Health Maintenance Due Date Last Done Comments Tdap 1996 Depression screening for age 12+ 1997 HIV for age 15-65 2000 BMI (ht and wt on same day) for age 18+ 08/31/2003 Hepatitis C screening for ag e 18-79 08/31/2003 Hepatitis B series for 19+ ( 1 of 3 - 19+ 3-dose series) 2004 Tetanus booster 2005 Lipids for age 35-44 2020 COVID-19 vaccine series ( - 2023- season) 2024 05/25/2021, 11/08/2020, 10/18/2020 Influenza Vaccine (Season Ended) 2025 Pneumococcal series for age 6-49 Aged Out No longer eligible b ased on patient's age to complete this topic Insurance [facility] Care Teams Coal Briquette Machine Operator Relationship Specialty Start Date End Date Tatyana Dwyer MD [address] [place] [address] PCP - General Internal Medicine 06/14/19
--- OUTSIDE RECORDS SUMMARY | 2024-11-13 09:15 | XMS_ITS | Encounter Summary ---
Author Organization [place] Address [address] [place] [address] Care Team Providers Care Crm Manager Name Role Phone Tatyana Dwyer MD Primary Care P rolorettader [place] Dwyer MD Unavailable Annalee Toussaint-C Unavailable Cr Fung MD Unavailable [phone] Bianca Rubalcava RN Unavailable [phone] Keegan Montemayor MD Unavailable Un available Joselin Andrade PA-C Unavailable Steven Tatum MD Unavailable Jim Mark MD Unavailable [phone] Jaime Wood MD Unavailable [phone] Annalee Toussaint-C Unavailable [phone] Honey Jackson APRN, CNP Unavailable + [phone] Wm Ryan MD Unavailable Tatyana Dwyer MD Unavailable Amalia Agosto GC Unavailable [phone] Jaime Wood MD Unavailable [phone] Christen Gallardo MD Unavailable [phone] Ana Fink MD Unavailable Encounter Details Date Type Department Care Team (Late st Contact Info) Description 08/27/2019 Orders Only [facility] [address] [facility] [address] 5th [place] [address] Hill Spears MD [address] [facility] [address] [place], [place] [address] Social History Tobacco Use Types Packs/Day Years [...] PM CDT 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 Gender Identity Male 12/19/2020 9:52 PM CDT Sexual Orientation Straight 12/19/2020 9: 52 PM CDT Travel History Travel Start Travel End [place] 10/12/2024 10/14/2024 documented as of this encounter Plan of Treatment Upcoming Encounters Date Type Department Care Team (Late st Contact Info) Description 11/20/2024 9:30 AM CDT Office Visit [facility] [address] [place] [address] Tatyana Dwyer MD [address] [place], [place] [address] 02/10/2025 11:30 AM CDT Office Visit [facility] [address] [place] [address] Christen Gallardo MD [address] [place] [address] documented as of this encounter Visit Diagnoses Not on filedocumented in this encounter Additional Health Concerns Infection Onset Date Last Indicated Resolved Time Rule Out COVID-19 10/25/2021 10/25/2021 10/26/2021 12:43 PM CDT COVID-19 10/25/2021 10/25/2021 11/15/2021 11:3 9 PM CDT documented as of this encounter Care Teams Crm Manager Relationship Specialty Start Date End Date Tatyana Dwyer MD [address] [place] [address] PCP - General Internal Medicine 06/01/19 Tatyana Dwyer MD [address] [place] [address] Assigned PCP 05/31/19 10/15/20 Annalee Toussaint PA-C [address] [address] Physician Die Storage Worker Physician Die Storage Worker - Medical 07/15/19 Cr Fung MD [address] [place] [address] Urology 07/15/19 Bianca Rubalcava, RN Specialty Farm Forestry And Garden Workers Urology 07/15/19 Keegan Montemayor MD Assigned Heart and Vascular Provider 04/08/20 12/27/20 Joselin Andrade PA-C [address] [place] [address] Assigned Pediatric Specialist Provider 04/08/20 07/17/20 [place] [address] [place] [address] Assigned Surgical Provider 04/08/20 07/22/21 Jim Mark MD [address] [place] [address] Assigned Musculoskeletal Provider 04/08/20 02/11/21 Jaime Wood MD [address] [place] [address] Assigned Sleep Provider 04/08/2004/08 Annalee Toussaint PA-C [address] [place] [address] Assigned OBGYN Provider 08/31/20 1 Honey Jackson APRN [facility] [address] [place] [address] Assigned PCP 10/16/20 02/04/21 Wm Ryan MD [address] [place] [address] [id number] Resident Student in organized health care education/training program 02/01/21 Tatyana Dwyer MD [address] [place] [address] Assigned PCP 02/05/21 Amalia Agosto GC [address] [place] [address] Assigned OBGYN Provider 05/07/21 07/15/21 Jaime Wood MD [address] [facility] [address] [place] [address] Assigned Sleep Provider 07/09/21 Christen Gallardo MD [address] [facility] [place] [address] Assigned Endocrinology Provider 11/18/21 Ana Fink MD [address] [place] [address] Fellow Gastroenterology 10/16/22 documented as of this encounter
[2024-11-13 09:29] VITALS: BP 147/87; PULSE 78; RESP 20; O2SAT 97; BMI 39.6
--- NOTE | 2024-11-13 09:52 | ED.BACK ---
HPI - Back Pain/Injury General Date Seen: 11/13/24 Chief Complaint: Back Injury/Pain Stated Complaint: Lower back pain Time Seen by Provider: 11/13/24 09:33 Source: patient Mode of arrival: ambulatory Limitations: no limitations History of Present Illness HPI Narrative: Patient is a 39-year-old male presenting to the emergency department for back pain. He does have chronic back issues that started 17 years ago after an injury. States his back is usually does well and has had maybe 6 flare ups since the initial injury. 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 States the pain now is the most severe it has been since the initial injury. Has some pain and numbness to his left leg. has not had the symptoms of this previous flare ups. Denies saddle anesthesia, fevers, chills, urinary retention, urinary or bowel incontinence. Has seen [facility] for his back pain in the past and saw them yesterday. Did the same day physical therapy appointment and was started on prednisone and a muscle relaxer. Levels have not helping states he is unable to sleep last night due to the pain. States no imaging was done is concerned he needs another MRI. Does states he scheduled to get a steroid injection in a few weeks and also pre help with his symptoms. Also has a follow-up Here in [place] this upcoming . Related Data Home Medications ?Medication ?Instructions ?Recorded ?Confirmed hydrochlorothiazide 25 mg tablet 25 mg PO QDAY 11/08/22 11/13/24 lisinopril 20 mg tablet 10 mg PO QDAY 11/08/22 11/13/24 nebivolol 2.5 mg tablet (Bystolic) 2.5 mg PO QDAY 11/23/22 07/16/24 omeprazole 20 mg capsule,delayed 20 mg PO DAILY 07/16/24 07/16/24 release semaglutide (weight loss) 0.25 0.25 mg subcut 07/16/24 mg/0.5 mL subcutaneous pen injector (Wegovy) testosterone cypionate 200 mg/mL 150 mg IM Q2W 07/16/24 07/16/24 intramuscular oil wegouy 2.4 mg 07/16/24 methocarbamol 500 mg tablet 500 mg PO 3XD 11/13/24 11/13/24 prednisone 20 mg tablet 20 mg PO BID 11/13/24 11/13/24 testosterone 81 mg topical QAM 11/13/24 11/13/24 tirzepatide (weight loss) 7.5 7.5 mg subcut 11/13/24 mg/0.5 mL subcutaneous pen injector (Zepbound) Previous Rx's ?Medication ?Instructions ?Recorded oxycodone 5 mg tablet 5 mg PO Q6H PRN pain #12 tabs 11/13/24 Allergies Allergy/AdvReac Type Severity Reaction Status Date / Time No Known Drug Allergies Allergy Verified 11/13/24 09:27 Review of Systems Narrative: Pertinent systems reviewed and were negative unless stated in HPI PFSH PFS Medical History Pituitary adenoma ?D35.2 - Benign neoplasm of pituitary gland (ICD-10) Class 3 severe obesity with serious comorbidity and body mass index (BMI) of 45.0 to 49.9 in adult ?E66.813 - Obesity, class 3 (ICD-10) ?Z68.42 - Body mass index [BMI] 45.0-49.9, adult (ICD-10) Erectile dysfunction ?N52.9 - Male erectile dysfunction, unspecified (ICD-10) Hypogonadism in male ?E29.1 - Testicular hypofunction (ICD-10) Left lumbar radiculopathy ?M54.16 - Radiculopathy, lumbar region (ICD-10) Social History Smoking Status: Never smoker Exam Narrative: Exam Narrative: Const: Well-nourished, Well-developed, in moderate distress Eyes: PERRL, no conjunctival injection, and symmetrical lids HENT: Atraumatic external nose and ears. Moist mucous membranes. MSK:Extremities w/o deformity, Normal Active ROM Skin: Warm, Dry. No rashes or lesions. Neuro: Normal Muscle tone, No focal neurological deficits. Psych: Awake, Alert, & Oriented x3. Appropriate mood and affect. Const: Vital Signs, click to edit/add: Vital Signs - 24 hr 11/13/24 09:29 Pulse Rate [Pulse Oximeter] 78 Respiratory Rate 20 Blood Pressure [Ri ght Upper Arm] 147/87 H Pulse Oximetry 97 Oxygen Delivery Me thod Room Air Course Vital Signs Vital signs: Initial Vital Signs Pulse Rate 78 11/13/24 09:29 Respiratory Rate 20 11/13/24 09:29 Blood Pressure 147/87 H 11/13/24 09:29 Blood Pressure Mean 107 H 11/13/24 09:29 Pulse Oximetry 97 11/13/24 09:29 Oxygen Delivery Method Room Air 11/13/24 09:29 Vital Signs Pulse Rate 78 11/13/24 09:29 Respiratory Rate 20 11/13/24 09:29 Blood Pressure 147/87 H 11/13/24 09:29 Pulse Oximetry 97 11/13/24 09:29 Oxygen Delivery Method Room Air 11/13/24 09:29 Pulse Rate 78 11/13/24 09:29 Respiratory Rate 20 11/13/24 09:29 Blood Pressure 147/87 H 11/13/24 09:29 Pulse Oximetry 97 11/13/24 09:29 Oxygen Delivery Method Room Air 11/13/24 09:29 MDM - Back Pain/Injury MDM Narrative Medical decision making narrative: patient is a 39-year-old male presenting for low back pain. Denies any recent trauma to his back and off believe imaging is necessary. He was ask him a MRI but do not believe it is necessary to do an MRI here in the emergency department as it will not oil changer. He most likely has a herniated disc. Is not having any red flag symptoms for cauda equina. I do believe he is safe for discharge. I did offer him some oxycodone to help through the weekend for his pain management. He he is agreeable to this plan Discharge Plan Discharge Clinical Impression: Lumbar radiculopathy Sciatica Qualifiers: Laterality: left Qualified Code(s): M54.32 - Sciatica, left side Patient Disposition: Home, Self-Care Condition: Stable Instructions: Sciatica (ED) Additional Instructions: you symptoms are likely from a herniated disc. Return to emergency department if you develop urinary retention, saddle anesthesia ( numbness of the area of your but that would be touching a saddle if sitting on 1), urinary or bowel incontinence. You can use the oxycodone as needed for pain but you will be unable to get further prescriptions from this emergency department for oxycodone or other narcotics for this issue. Prescriptions: New oxycodone 5 mg tablet 5 mg PO Q6H PRN (Reason: pain) Qty: 12 0RF No Action lisinopril 20 mg tablet 10 mg PO QDAY hydrochlorothiazide 25 mg tablet 25 mg PO QDAY nebivolol [Bystolic] 2.5 mg tablet 2.5 mg PO QDAY omeprazole 20 mg capsule,delayed release(DR/EC) 20 mg PO DAILY wegouy 2.4 mg Patient Comments: 2.4 mg/1.75 ml once weekly testosterone cypionate 200 mg/mL oil 150 mg IM Q2W Wegovy 0.25 mg/0.5 mL pen injector 0.25 mg subcut methocarbamol 500 mg tablet 500 mg PO 3XD prednisone 20 mg tablet 20 mg PO BID testosterone 20.25 mg/1.25 gram (1.62 %) gel in metered-dose pump 81 mg topical QAM Zepbound 7.5 mg/0.5 mL pen injector 7.5 mg subcut Follow Up/Referrals: Provider,Not a Local [Primary Care Provider, Family Practice] Stand Alone Forms: MyHealth Info Instructions
--- OUTSIDE RECORDS SUMMARY | 2024-11-13 10:05 | XMS_ITS | Encounter Summary ---
Author Organization [place] Address [address] [place] [address] Care Team Providers Care Decorating Equipment Setter Name Role Phone Tatyana Dwyer MD Primary Care P rolorettader Tatyana Dwyer MD Unavailable Annalee Toussaint PA-C Unavailable [phone] Cr Fung MD Unavailable Bianca Rubalcava RN Unavailable [phone] Keegan Montemayor MD Unavailable Un available Steven Tatum MD Unavailable Jim Mark MD Unavailable Jaime Wood MD Unavailable [phone] Annalee Toussaint PA-C Unavailable [phone] Honey Jackson APRN, CNP Unavailable + [phone] Wm Ryan MD Unavailable [phone] Tatyana Dwyer MD Unavailable Amalia Agosto GC Unavailable [phone] Jaime Wood MD Unavailable [phone] Christen Gallardo MD Unavailable [phone] Ana Fink MD Unavailable Encounter Details Date Type Department Care Team (Late st Contact Info) Description 08/29/2020 MyC Medical Advice [facility] [address] [place] [phone] Lucinda Alaniz MA Social History Tobacco Use [...] PM CDT 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 No / Unsure 08/23/2020 12:45 PM MAINTENANCE CUSTODIAN documented as of this encounter Plan of Treatment Upcoming Encounters Date Type Department Care Team (Late st Contact Info) Description 11/20/2024 9:30 AM CDT Office Visit [facility] [address] [place] [phone] Tatyana Dwyer MD [address] [place] [address] 02/10/2025 11:30 AM CDT Office Visit [address] [place] [address] Christen Gallardo MD [address] [place] [address] documented as of this encounter Visit Diagnoses Not on filedocumented in this encounter Additional Health Concerns Infection Onset Date Last Indicated Resolved Time Rule Out COVID-19 10/25/2021 10/25/2021 10/26/2021 12:43 PM CDT COVID-19 10/25/2021 10/25/2021 11/15/2021 11:3 9 PM CDT documented as of this encounter Care Teams Decorating Equipment Setter Relationship Specialty Start Date End Date Tatyana Dwyer MD [address] [place] [address] PCP - General Internal Medicine 06/01/19 Tatyana Dwyer MD [address] [place] [address] Assigned PCP 05/31/19 10/15/20 Annalee Toussaint, PAMarianaC [address] [place] [address] [place] [address] Physician Pie Filler Physician Pie Filler - Medical 07/15/19 rC Fung MD [address] [place] [address] Urology 07/15/19 Bianca Rubalcava, RN Specialty Band Maker Urology 07/15/19 Keegan Montemayor MD Assigned Heart and Vascular Provider 04/08/20 12/27/20 [place] [address] [place] [address] Assigned Surgical Provider 04/08/20 07/22/21 Jim Mark MD [address] [place] [address] 265205 Assigned Musculoskeletal Provider 04/08/20 02/11/21 Jaime Wood MD [address] [place], [place] [address] Assigned Sleep Provider 04/08/2004/08 Annalee Toussaint PA-C [address] [place], [place] [address] Assigned OBGYN Provider 08/31/20 1 Honey Jackson APRN CNP [address] [place], [place] 62[address]87 Assigned PCP 10/16/20 02/04/21 Wm Ryan MD [address] [place] [address] Resident Student in organized health care education/training program 02/01/21 Tatyana Dwyer MD [address] [place] [address] Assigned PCP 02/05/21 Amalia Agosto GC [address] [place], [place] [address] Assigned OBGYN Provider 05/07/21 07/15/21 Jaime Wood MD [address] [place] [address] Assigned Sleep Provider 07/09/21 Christen Gallardo MD [address] [place] [address] Assigned Endocrinology Provider 11/18/21 Ana Fink MD [address] [place] [address] Fellow Gastroenterology 10/16/22 documented as of this encounter
== END 2024-11-13 10:12 | disposition home or self-care (01) ==
LOC: ED 10:01
PROVIDERS: Emergency Provider Student in an Organized Health Care Education/Training Program
DX: M54.16 Radiculopathy, lumbar region (principal); M54.32 Sciatica, left side
CPT/HCPCS: 99282; 99283; 99284

== ENCOUNTER 2024-12-02 10:23 | Outpatient (RCR) | payer OTHER, SELFPAY | END 2025-04-01 23:59 | disposition home or self-care (01) | PROVIDERS: Visit Provider Family Medicine | DX: M54.16 Radiculopathy, lumbar region (principal); R20.0 Anesthesia of skin; Z51.89 Encounter for other specified aftercare | CPT/HCPCS: 97110; 97161 ==

== ENCOUNTER 2024-12-25 13:37 | Emergency (ER) | payer OTHER, SELFPAY ==
--- OUTSIDE RECORDS SUMMARY | 2023-10-09 05:01 | XMS_ITS | Continuity of Care Document ---
Author Organization [facility] Address [address] [address] [place] [address] Phone Care Team Providers Care Hardware Developer Name Role Phone Ruthann Thacker CRNA Unavailable Unavailable Allergies, Adverse Reactions, Alerts Substance Reaction Status Criticality No Known Allergies Active No Inform ation Medications Medication Instructions Dosage Effective Dates (start - stop) Status Comments hydrochlorothiazide 12.5 mg tablet take 1 tablet by oral route every day 12.5 MG - Active nebivolol 5 mg tablet take 1 tablet by oral route every day 5 MG - Active testosterone 1 % (25 mg/2.5 gram) transdermal gel packet apply 2 packet by transdermal route every day in the morning to shoulders/upper arms and/or abdomen divided evenly between areas 50 MG - Active Wegovy 1 mg/0.5 mL subcutaneous pen injector inject (1MG) by subcutaneous route every week on the same day of each week 1 MG - Active lisinopril 10 mg tablet take 1 Tablet by oral route every day 10 MG - Active omeprazole 20 mg capsule,delayed release take 1 capsule by oral route every day before a meal 20 MG - Active Cipro 500 mg tablet take 1 tablet by oral route 2 times every day 500 MG - Active Bystolic 2.5 mg tablet take 1 tablet by oral route every day 2.5 MG - Active Procedures Procedure Date Colonoscopy Flex; W/remov Les- 24 Level Iv-surg Path Gross/micro Apr-24-20 24 Offic/outpt E&m New Mod-hi Routine Serum Collection Gg; Iga, Igd, Igg, Igm, Ea Bld Ct; Hg/pltlt Ct Auto/compl 20 Advance Directives Directive Yes / No Effective Date File Name No Information Encounters Encounter Description Practice Location Reason(s) For Visit Diagnoses Date Provider Providers Copied on Encounter [facility], [address] [address], [place], [place], [id number], [place] tel:[phone] [facility] No Information Sep- 4 Kedar Beavers. [address] [facility] [address], [place], [place], [id number] , [place]. tel: [phone] Referring Provider: Mp Larson MD, [address] [facility] [address], [place], [address] . tel:[phone] [facility] [place], [address] [address], [place], [place], [id number], [place] tel:[phone] [facility] GI Symptoms or Concerns (chief complaint) Colorectal polypsDiverticulosi s of colon without diverticulitisFamil y history of colon cancer in fatherEncounter for screening for malignant neoplasm of colonBenign neoplasm of ascending colonBenign neoplasm of transverse colonFamily history of malignant neoplasm of digestive organs Sep- 4 Marsha Gresham. [address] [facility] [address], [place], [place], [id number] , [place]. tel: [phone] Referring Provider: Tatyana Lam MD, [address] [place] [address], [address]. tel:[phone] [facility], [address] [address], [place], [id number], [place] tel:[phone] [facility] No Information Sep-0 4 Rick Connolly. [address] [facility] [address], [place], [id number] , [place]. tel: [phone] [facility], [address] [address], [place], [id number], [place] tel:[phone] [facility] Abnormal CT scan, kidney Aug- 0 Harris Gasca. [address] [facility] [address], [place], [id number] , [place]. tel: [phone] [facility], [address] [address], [place], [id number], [place] tel:[phone] [facility] Periumbilical pain 0 Harris Gasca. [address] [facility] [address], [place], [id number] , [place]. tel: [phone] Offic/outpt E&m New Mod-hi [facility], [address] [address], [place], [id number], [place] tel:[phone] [facility] GI Symptoms or Concerns (chief complaint) Right lower quadrant painPeriumbilical painHeartburnDietar y counseling and surveillanceEssenti al (primary) hypertension 0 Harris Gasca. [address] [facility] [address], [place], [id number] , [place]. tel: [phone] Referring Provider: Referral Self, USE FOR SELF REFERRALS. Family History Family Member Type Diagnosis Age At Onset Father Problem (finding) Cancer Mother Problem (finding) Asthma Father Problem (finding) cancer of colon Immunizations Vaccine Date Status Comments SARS-COV-2 (COVID-19) vaccin e, mRNA, spike protein, LNP, preservative free, 50 mcg/0.5 mL dose administered Note: [facility] bi-direct ional interface ; Source: Other Registry Afluria Qd administered Note: [facility] bi-directional interface ; Source: Other Registry SARS-COV-2 (COVID-19) vaccin e, mRNA, spike protein, LNP, bivalent, preservative free, 30 mcg/0.3 mL dose, sierra-sucrose formulation administered Note: [facility] bi-direct ional interface ; Source: Other Registry Influenza, injectable, Madin [place] Canine Kidney, preservative free, quadrivalent administered Note: [facility] bi-direct ional interface ; Source: Other Registry tetanus toxoid, reduced diphtheria toxoid, and acellular pertussis vaccine, adsorbed administered Note: [facility] b i-directional interface ; Source: Other Registry SARS-COV-2 (COVID-19) vaccin e, mRNA, spike protein, LNP, preservative free, 30 mcg/0.3mL dose administered Note: [facility] bi-direct ional interface ; Source: Other Registry Influenza, seasonal, injectable administe red Note: [facility] bi- directional interface ; Source: Other Registry SARS-COV-2 (COVID-19) vaccin e, mRNA, spike protein, LNP, preservative free, 30 mcg/0.3mL dose administered Note: [facility] bi-direct ional interface ; Source: Other Registry SARS-COV-2 (COVID-19) vaccin e, mRNA, spike protein, LNP, preservative free, 30 mcg/0.3mL dose administered Note: [facility] bi-direct ional interface ; Source: Other Registry Afluria Qd administered Note: [facility] bi-directional interface ; Source: Other Registry Fluzone Quad 6mo or older administered Note: [facility] bi-direct ional interface ; Source: Other Registry Afluria Qd administered Note: [facility] bi-directional interface ; Source: Other Registry Fluzone Quad 6mo or older administered Note: [facility] bi-direct ional interface ; Source: Other Registry Afluria Qd administered Note: M [facility] bi-directional interface ; Source: Other Registry Fluzone Quad 6mo or older administered Note: [facility] bi-direct ional interface ; Source: Other Registry Influenza, seasonal, injecta ble, preservative free administered Note: [facility] bi-direct ional interface ; Source: Other Registry Afluria Qd administered Note: M [facility] bi-directional interface ; Source: Other Registry Fluzone Quad 6mo or older administered Note: [facility] bi-direct ional interface ; Source: Other Registry Influenza, injectable,quadrivalent, preservative free, pediatric administered Note: [facility] bi-directional interface ; Source: Other Registry Influenza, seasonal, injectable administe red Note: [facility] bi- directional interface ; Source: Other Registry Influenza, seasonal, injectable administe red Note: [facility] bi- directional interface ; Source: Other Registry tetanus toxoid, reduced diphtheria toxoid, and acellular pertussis vaccine, adsorbed administered Note: [facility] b i-directional interface ; Source: Other Registry Influenza, seasonal, injectable administe red Note: [facility] bi- directional interface ; Source: Other Registry meningococcal polysaccharide vaccine (MPSV4) administered Note: [facility] bi-direct ional interface ; Source: Other Registry Payers Payer name Insurance type Covered green party ID Authoriza tishelli(s) [facility] [id number] Social History Type Description Quantity Date Captured Comments Sex Male Smoking Status No Information Chief Complaint And Reason For Visit No Information Reason For Referral Reason For Referral No Information Plan Of Treatment Date Type Action Status Goal Lifestyle education regardin g diet completed Referral Ordered: Ultrasound Kidneys Appointment date/timeframe: 09/21/2019 ordered Referral Ordered: CT Abdomen And Pelvis WITH Contrast Appointment date/timeframe: 09/17/2019 ordered History Of Present Illness Encounter Date Complaint History Of Prese nt Illness GI Symptoms or Concerns GI Symptoms or Concerns The bill ent is a 34-year-old male with past medical history significant for anxiety, hypertension, GERD, and obesity, seen for evaluation of a 10-day history of right lower quadrant pain, also with complaints of a new 2 out of 10 mid abdominal ache, which he has had for the last 4 days.He reports a recent history of prostatitis for which he was treated with Cipro. He was more recently seen in the urgent urgency room and was diagnosed with a left-sided epididymitis for which he was restarted on Cipro. He tells me he had been seen in the ER about a week ago on August 23 for the lower quadrant right flank pain and had a CT of the abdomen, pelvis and labs. The CT of the abdomen and pelvis that was performed revealed no cause for abdominal pain. The appendix was normal appearing. When he was seen in followup by his primary care provider's office, Tylenol and MiraLax were recommended, which he tried for a short time without relief.In regards to the right lower quadrant pain Functional Status Date Functional Assessmen t No Information Instructions Date Instruction Additional Infor mation High Fiber Diet Related to Color ectal polyps Diverticulosis/Diverticulitis Re lated to Colorectal polyps Colon Polyps Related to Color ectal polyps Colon Cancer Prevention Related to Colorectal polyps 1. the right lower p ain is a musculoskeletal/abdominal wall pain - this can be treated by physical therapy and pain management - as you have an appointment to see pain management you can let them know about this pain and it may be treated with a point injection2. continue omeprazole3. will request EGD/Colon reports from . check celiac, cbc5. monitor the new mid abdominal pain if becomes severe would repeat CT6. f/u as needed Related to Heartburn Lifestyle education regarding di et Related to Dietary counseling and surveillance Assessments Type Assessment Date No Information Patient Care Teams Name Effective Dates (start - stop) Status Members No Information
--- OUTSIDE RECORDS SUMMARY | 2023-10-09 05:01 | XMS_ITS | Continuity of Care Document ---
Author Organization [facility] Address [address] [address] [place] [address] Phone Care Team Providers Care Felt Hat Flanging Operator Name Role Phone Ruthann Thacker CRNA Unavailable [...] Diagnoses Date Provider Providers Copied on Encounter [facility], [address] [address], [place], [place], [id number], [place] tel:[phone] [facility] No Information Sep- 4 Kedar Beavers. [address] [facility] [address], [place], [place], [id number] , [place]. tel: [phone] Referring Provider: Mp Larson MD, [address] [facility] [address], [place], [address] . tel:[phone] [facility] [place], [address] [address], [place], [place], [id number], [place] tel:[phone] [facility] GI Symptoms or Concerns (chief complaint) Colorectal polypsDiverticulosi s of colon without diverticulitisFamil y history of colon cancer in fatherEncounter for screening for malignant neoplasm of colonBenign neoplasm of ascending colonBenign neoplasm of transverse colonFamily history of malignant neoplasm of digestive organs Sep- 4 Marsha Gresham. [address] [facility] [address], [place], [place], [id number] , [place]. tel: [phone] Referring Provider: Tatyana Lam MD, [address] [place] [address], [address]. tel:[phone] [facility], [address] [address], [place], [id number], [place] tel:[phone] [facility] No Information Sep-0 4 Rick Connolly. [address] [facility] [address], [place], [id number] , [place]. tel: [phone] [facility], [address] [address], [place], [id number], [place] tel:[phone] [facility] Abnormal CT scan, kidney Aug- 0 Harris Gasca. [address] [facility] [address], [place], [id number] , [place]. tel: [phone] [facility], [address] [address], [place], [id number], [place] tel:[phone] [facility] Periumbilical pain 0 Harris Gasca. [address] [facility] [address], [place], [id number] , [place]. tel: [phone] Offic/outpt E&m New Mod-hi [facility], [address] [address], [place], [id number], [place] tel:[phone] [facility] GI Symptoms or Concerns (chief complaint) Right lower quadrant painPeriumbilical painHeartburnDietar y counseling and surveillanceEssenti al (primary) hypertension 0 Harris Gasca. [address] [facility] [address], [place], [id number] , [place]. tel: [phone] Referring Provider: Referral Self, USE FOR SELF [...] ; Source: Other Registry Influenza, injectable, Madin [place] Canine Kidney, preservative free, quadrivalent administered Note: [...] Registry Payers Payer name Insurance type Covered alliance party ID Authoriza tishelli(s) [facility] [id number] Social History Type Description Quantity Date Captured [...]
--- OUTSIDE RECORDS SUMMARY | 2024-11-12 08:50 | XMS_ITS | Encounter Summary ---
Author Organization [facility] Address [address] [address] Care Team Providers Care Ware Finisher Name Role Phone Michelet Velasco MD Primary Care Provid er Reason for Referral * Procedure/Equipment (Routine) - Closed Specialty Diagnoses / Procedures Referred By Sindhu vee Referred To Contact Diagnoses Left lumbar radiculopathy Procedures FL C Arm 20 Pain Management Robson Irvin DO [address] [place] [address] Phone: tel: fax: Referral ID Status Reason Start Date Expiration Date Visits Re quested Visits Authorized [id number] Closed 11/12/2024 02/11/2026 1 1 * Consult/Transfer Care (Routine) - New Request Specialty Diagnoses / Procedures Referred By Sindhu vee Referred To Contact Diagnoses Left lumbar radiculopathy Robson Irvin DO [address] [place] [address] Phone: tel: fax: Referral ID Status Reason Start Date Expiration Date V isits Requested Visits Authorized [id number] New Request 11/12/2024 02/11/2026 1 1 Scheduling Instructions Your provider has recommended an appointment with [facility]. You can quickly make your appointment online at [employer]/schedule. You can also call [phone] for help scheduling your appointment. We suggest [...] Diagnoses Left lumbar radiculopathy Robson Irvin DO [address] [place] [address] Phone: tel: fax: Referral ID Status Reason Start Date Expiration Date V isits Requested Visits Authorized [id number] New Request 11/12/2024 11/12/[phone] Scheduling Instructions Your clinician recommended an appointment with [facility]. You can quickly schedule your appointment by signing in to your online account at [email or web address] or through the text message you may have received. You can also make an appointment by calling [phone]. We suggest you call your health insurance [...] CDT Office Visit [facility] [place] [address] [place] [address] Robson Irvin DO [address] [place], [place] [id number] Left lumbar radiculopathy (Primary Dx) Social History [...] 8:50 AM CDT Thank you for choosing [facility] for your health care visit today. If you have any questions regarding your visit or next steps, please contact us at [phone]. Robson Irvin, Medication Requests: Prescriptions are filled on Weekdays before 3:00PM For all medication refills: Request a refill using MyChart or contact your Pharmacy Paperwork Requests: FMLA or disability paperwork can be faxed to: [phone] Please allow 7-10 business days for completion of all paperwork. Powered by [employer]: E-mail Address: [email or web address] What is Know Your Cost? Know Your Cost is a service for patients and patient/members to call and receive personalized cost information and estimates across our care group. The phone number is (COST) Saturday - Saturday 8 AM to 5 PM To request copies of your medical records, call: [phone] (option 4) Diagnosis: Low back pain Plan: Follow Up: As needed if symptoms are not improving or worsen. Physical Therapy: Schedule your physical therapy appointment at the javascript front end developer or call [phone]. Medications: Over the Counter Medications: Acetaminophen (Tylenol) [...] by your physician - Heat Prednisone - moss picker at pharmacy - take in the morning with food - do not take Ibuprofen (Advil/Motrin) or naproxen (Aleve) with this medication - Tylenol ok Methocarbamol - moss picker at pharmacy - take at bedtime for [...] Steroid Injection) for your pain. Please call [phone] to schedule a follow up 2 weeks [...] documented in this encounter Plan of Treatment Scheduled Referrals Name Type Priority Associated Diagnoses Orde r Schedule Physical Therapy Referral Routine Left lumbar radiculopathy Ordered: 11/12/2024 Spine-Medical Consult Adult Referral Routine Left lumbar radiculopathy Ordered: 11/12/2024 documented as of this encounter Results * FL C Arm 20 Pain Management (11/17/2024 8:34 AM CDT) Anatomical Region Laterality Modality Radiographic Bonita ging Narrative 11/17/2024 9:18 AM CDT These images were obtained during a surgical procedure. us Robson Irvin DO RAD FL Final Result documented in this encounter Visit Diagnoses Diagnosis Left lumbar radiculopathy- Primary Thoracic or lumbosacral neuritis or radiculitis, unspecified Left lumbar radiculopathy Thoracic or lumbosacral neuritis or radiculitis, unspecified documented in this encounter Care Teams Ware Finisher Relationship Specialty Start Date End Date Michelet Velasco MD [address] [place] [address] PCP - General 10/20/13 documented as of this encounter
--- OUTSIDE RECORDS SUMMARY | 2024-11-12 10:30 | XMS_ITS | Encounter Summary ---
Author Organization [facility] Address [address] [place] [address] Care Team Providers Care Government Guard Name Role Phone Michelet Velasco MD Primary Care Provid er Reason for Visit * Reason Comments Spine Lumbar * Therapies (Routine) - New Request Specialty Diagnoses / Procedures Referred By Sindhu t Referred To Contact Diagnoses Left lumbar radiculopathy Robson Irvin, DO [address] [place] [address] Phone: tel: fax: Referral ID Status Reason Start Date Expiration Date V isits Requested Visits Authorized [id number] New Request 11/12/2024 11/12/[phone] Encounter Details Date Type Department Care Team (Late st Contact Info) Description 11/12/2024 10:30 AM CDT Office Visit Physical Therapy at [facility] [place] [address] [place], [place] [id number] Leighann Pemberton, PT [address] [place] [address] Acute left-sided low back pain, unspecified whether sciatica present (Primary Dx) Social History Tobacco Use Types [...] on file documented as of this encounter Progress Notes * Leighann Pemberton, PT - 11/12/2024 10:30 AM CDT Physical Therapy [facility] Lumbar Spine Evaluation/Plan of Care Visit Number: 1 [facility] Initial Certification Period: 11/12/2024 - 02/10/25 Referring Provider: Robson Irvin Referring Diagnosis: L lumbar radiculopathy Orders: Evaluate & treat Precautions/Contraindications: none noted Date of Onset: 11/10/24 Standardized Functional Score at initial evaluation: not given PHQ-2 Score: not given History: Patient [facility] to [facility] with complaints of L sided low back pain. Possibly from working on [employer]-- many hours of work over Weekend, not one specific incident. History of L5 disc herniation; has done Neck and Back Strengthening before-- not as helpful-- feels that he can do it on his own at home once shown what to do. Localizes pain L>R and L LE weakness -- increasing pressure with bowel movements can hurt low back. 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 History pertinent to therapy includes L5/S1 disc herniation. Recently Experienced (Red Flags): Denies fever, chills, night sweats, unrelenting night pain, unexplained weight loss, bowel/bladder changes, saddle sensation changes Recently Experienced (Yellow Flags): None Review of Systems: Denies fever, chills, night sweats, unrelenting night pain, unexplained weight loss, bowel/bladder changes, saddle sensation changes Past Medical History: Diagnosis Date Morbid obesity with BMI of 45.0-49.9, adult ([facility]) Past Surgical History: Procedure Laterality Date HAND TENDON SURGERY TYMPANOPLASTY OBJECTIVE: General: Mood, orientation, behavior were appropriate. Patient was alert and oriented. Observation/Posture/Alignment: guarded, forward head, and lumbar lordosis decreased Neurological Screen: Heel walking: WNL Toe walking: WNL Myotomes: WNL Slump: (-) bilaterally Straight Leg Raise: (-) bilaterally Lumbar AROM: Flexion: 50%, pain Extension: WNL, relief with repeated extension Sidebending: L: 50%, pain, R: WNL Rotation: L: 75% pain, R: WNL Hip ROM: mild ER/IR restriction bilaterally -- minimal symptoms provoked Strength: deferred besides myotomes above Joint mobility: Not tested Flexibility: Not tested Palpation: mild TTP to L low back and hip musculature TREATMENT TODAY: Physical Therapy Evaluation (CPT 69588): An evaluation was performed. The patient was determined tohave low complexity based on history, examination, clinical presentation of the patient and the PT's clinical decision making. The patient was educated on the condition, planned therapy intervention and expectations from treatment. Goals were a collaborative effort of the therapist and patient. Therapeutic Exercise (CPT 79870) x 15 minutes: Pt was instructed and demonstrated proper form in the following home exercise program: Access Code: [email or web address] Program Notes activity within symptom tolerance ice vs. heat Exercises - Supine Posterior Pelvic Tilt - 2-5 x daily - 8-12 reps - Supine Lower Trunk Rotation - 2 x daily - 8-12 reps - Supine Figure 4 Piriformis Stretch - 2 x daily - 5-8 reps - 5-10 hold - Prone Press Up - 2 x daily - 6-10 reps - Standing Lumbar Extension - 2 x daily - 6-10 reps - Seated Flexion Stretch with Nepalese Ball - 2 x daily - 8-12 reps Timed Code Treatment Minutes: 15 Total Treatment Minutes: 30 Medicare Unit Trackin ASSESSMENT: Kade is a pleasant 39 y.o. male who presents with LBP. Upon subjective and objective findings, the patient's signs and symptoms are in accordance with the diagnosis of acute mechanical LBP with history of disc herniation. The patient presents with decreased tolerance to lumbar ROM, mild hip restriction, and mild TTP of lumbar and hip musculature. These deficits make it difficult for the patient to transfer from bed or chair, chicken picker an object from the ground and sit, stand or walk for an extended period of time. Physical therapy is medically necessary to address the above listed deficits to return the patient to prior level of function. Barriers to Learning: none Rehab Prognosis: Excellent PLAN: Pt to follow-up at [facility] or . Planned Intervention/Education: Therapeutic Exercise, Manual Therapy, Neuromuscular Re-education, Self Care/Home Management, Therapeutic Activities, Ice, Heat, Mechanical Traction, Aquatic Therapy, Gait Training, Electrical Stimulation - attended, Electrical Stimulation - unattended, Ultrasound PT Frequency/Duration: 1 x/week for 6 weeks for a total of 6 visits Discharge Plan: Goal achievement, goal achievement with home exercise program or if progress plateaus. Informed Consent: Risks, benefits and alternatives to treatment have been explained. Patient and/orfamily in agreement with care plan. EXPECTED FUNCTIONAL OUTCOMES/GOALS: HEP/Independent Management: Demonstrate independence with HEP and self- management following each treatment session ADL's: Perform home management tasks with ease in 3 weeks. Transition in and out of bed with ease in 3 weeks. Transition sit to stand with normal positioning and weight bearing in 3 weeks. Ambulation: Ambulate for unlimited distance without increased symptoms in 6 weeks. Sports/Leisure: Return to prior level of leisure or recreational activities, including [employer], Tonal work outs and working around [employer] without an increase in symptoms or limitations in 6 weeks. Evaluation and Plan of Care completed by: Leighann Pemberton, PT 10:17 AM 11/12/2024 The sticker operator is completed by the therapist and the referring clinician's electronic signature certifies medical necessity for the plan above. Cosigned by Robson Irvin DO at 11/12/2024 11:50 AM CDT documented in this encounter Plan of Treatment Scheduled Referrals Name Type Priority Associated Diagnoses Orde r Schedule Physical Therapy Referral Routine Left lumbar radiculopathy Ordered: 11/12/2024 documented as of this encounter Visit Diagnoses Diagnosis Acute left-sided low back pain, unspecified whether sciatica present- Primary documented in this encounter Care Teams Government Guard Relationship Specialty Start Date End Date Michelet Velasco MD [address] [place] [id number] PCP - General 10/20/13 documented as of this encounter
--- OUTSIDE RECORDS SUMMARY | 2024-11-17 08:30 | XMS_ITS | Encounter Summary ---
Author Organization [facility] [employer] Address [address] [address] Care Team Providers Care Hand Developer Name Role Phone Michelet Velasco MD Primary Care Provid er Reason for Visit * Reason Comments Procedure * Procedure/Equipment (Routine) - Closed Specialty Diagnoses / Procedures Referred By Sindhu t Referred To Contact Diagnoses Left lumbar radiculopathy Procedures [place] C Arm 20 Pain Management Robson Irvin, DO [address] [place] [address] Phone: tel: fax: Referral ID Status Reason Start Date Expiration Date Visits Re quested Visits Authorized [id number] Closed 11/12/2024 02/11/2026 1 1 Encounter Details Date Type Department Care Team (Late st Contact Info) Description 11/17/2024 8:30 AM CDT Procedure Visit [facility] [address] [place] [address] Robson Irvin DO [address] [place] [address] 1, Jacoby Interiano Rn, DO [address] [place] [address] Procedure Social History Tobacco Use Types Packs/Day Years [...] Sign Reading Time Taken Comments Blood Pressure 138/78 11/17/2024 9:34 AM CDT Pulse 71 11/17/2024 9:34 AM CDT Temperature 37.1 C (98.7 F) 11/17/2024 8:36 AM CDT Respiratory Rate 16 11/17/2024 9:34 AM CDT Oxygen Saturation - - Inhaled Oxygen Concentration - - Weight - - Height - - Body Mass Index - - documented in this encounter Patient Instructions * Patient Instructions* Faustina Jeffers RN - 11/17/2024 8:30 AM CDT Discharge Instructions for: Kade Palacio Thank you for choosing [facility] for your medical care. A copy of your discharge instructions has been given to you below. Please read the instructions carefully. The surgery nurse will review this information with you and answer your questions. Discharge Instructions Transforaminal Lumbar Epidural Instructions Rest today. Do not drive until tomorrow. Apply ice to site (20 minutes on/20 minutes off) for the next 48 hours if you experience any soreness or pain. No heat to site for the next 48 hours. Resume diet and medications (you can start your blood thinner tonight). If you have a spinal cord stimulator which was off during the procedure, you may turn it back on in24 hours If you experience shortness of breath, pain when breathing, or severe swelling, notify your doctor.If it is after normal clinic hours (8:00 am to 5:00 pm), go to the nearest Emergency Room. You may experience the following symptoms up to 6 hours after your injections: warmth, tingling, heaviness, or numbness. If these symptoms last more than 12 hours, call your doctor. If you have severe headaches with positional changes, excruciating pain, worsening weakness or worsening numbness please call your doctor's office or the Careline at [phone]. If you have loss of bowel and bladder control- please go directly to the ER. Anesthesia Local: A local anesthetic was used for your procedure. Do not drive a motor vehicle for 24 hours. Additional Information Let's talk about the DANGER SIGNALS to watch for after you go home. I should call my clinic if I experience any of the following: *Temperature higher than 101 degrees Fahrenheit *Redness that has spread *Persistent bleeding *Infected drainage from injection site *Reaction to new medications *Severe pain *Swelling For Diabetic patients- The steroid used for your injection today may raise your blood sugar levels for the next 2 weeks. Check blood sugar levels more frequently and call your primary MD if there are problems. If you are taking blood thinners and had stopped them, you may restart your medication tonight. It is normal to experience a flushing sensation after the injection of a steroid medication. It is NOT normal to have an increased temperature. You may shower but DO NOT soak the injections sites (bath, hot tub, and swimming) for 2 days post injection. Medications You can resume your home medications. Follow Up AppointmentFOLLOW UP PLAN: Please follow up with our SPINE CLINIC with ANY ONE OF THE FOLLOWING: [place]: Dr. Lisa Fernandez, Kathy Gaming PA, Vy Rowley PA or Rut Vargas APRN, VICTIM WITNESS ADMINISTRATOR [place]: Jose Miguel ALEXANDRA, Dr. Kiera Dan, Dr. Tee Harris, Dr. David Herrera, Karen Marmolejo LIBRARY SERVICES ASSISTANT, or Dory Shelby LIBRARY SERVICES ASSISTANT ; [place]: Silvana Fletcher NP, or Nancy Crandall: Dr. Torsten Rousseau in 10-14 days; call [phone] to schedule an appointment if you do not already have one. Contact Information for Medical Questions During Regular Clinic Hours: Dr. Sargent at [facility] Pain Management: [phone] After Hours: Call the [facility] Call Center at [phone]. It is important to us that you had a great experience and great care. We want you to be completely satisfied with all aspects of your care. You might receive a survey in the next couple of weeks about the care you received. We would appreciate it very much if you would complete and return it. It isour goal to make [facility] your medical provider of choice and want you to feel confident in recommending [facility] to your family and friends. Thank you for choosing [facility]. The nurse has reviewed the above discharge instructions with me. I understand my discharge instructions. documented in this encounter Progress Notes * Alysa Smith RN - 11/17/2024 8:30 AM CDT Patient here for LESI procedure. Patient rates pain in left lower back, 4/10 at rest, 5/10 with activity. Verified NPO status. Pre-op teaching completed, patient verbalizes understanding. 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 Consent per MD. * Jacoby Sargent DO - 11/17/2024 8:30 AM CDT PROCEDURE: Left L5 Transforaminal Epidural Steroid injection under flouroscopy Dx: 1. Left lumbar radiculopathy Referring physician:Dr. Irvin CONSENT: After discussing the risks, benefits, and alternatives to the procedure, the patient expressed understanding and wished to proceed. The risks included bleeding, infection, nerve damage, and spinal headache. The pt signed the consent form. PROCEDURE DESCRIPTION: Pause for the cause was performed. The pt was brought to the flouroscopy suite and placed in the prone position. After identifying theL5-S1 space fluoroscopically, the skin was draped and prepped in the usual sterile fashion using Chlohexadine times three. The skin and subcutaneous tissue were anesthetized with 1% lidocaine. Using a 22G, 5 inch spinal needle, the L5/S1 foramen on the left was approached at the 6 o'clock position of the L5 pedicle. Negative aspiration was performed with no evidence of CSF. Omnipaque 300- 2.0 ml was then injected which showed a successful epidurogram. This was confirmed under flouroscopy in oblique/AP/lateral views. Then 10mg of Dexamethsone with 2ml of 0.25% Bupivicaine, total volume 3ml, was injected without complications. The needle was withdrawn. The skin was cleaned and a band-aid was placed. The pt tolerated the procedure well. Thank you for the referral. Dr. Jacoby Sargent * Faustina Jeffers RN - 11/17/2024 8:30 AM CDT Patient tolerated procedure well, vital signs stable. Post-procedure pain level 0/10 at rest, 0/10 with activity. Discharge instructions given (written & verbal review), patient verbalized understanding. Patient discharged to home via ambulatory with subway train driver. documented in this encounter Plan of Treatment Not on file documented as of this encounter Procedures Procedure Name Priority Date/Time Associated Diagnosis Comments FL C ARM 20 PAIN MANAGEMENT Routine 11/17/2024 8:34 AM CDT Left lumbar radiculopathy documented in this encounter Results * FL C Arm 20 Pain Management (11/17/2024 8:34 AM CDT) Anatomical Region Laterality Modality Radiographic Bonita ging Narrative 11/17/2024 9:18 AM CDT These images were obtained during a surgical procedure. Robson Irvin DO RAD FL Final Result documented in this encounter Visit Diagnoses Diagnosis Left lumbar radiculopathy Thoracic or lumbosacral neuritis or radiculitis, unspecified documented in this encounter Administered Medications Inactive Administered Medications - up to 3 most recent administrations Medication Order MAR Action Action Date Dose Rate Site dexAMETHasone PF (DECADRON) injection 10 mg 10 mg, Epidural, ONCE, On Sat11/17/24 at 0900, For 1 dose Given 11/17/2024 8:40 AM CDT 10 mg iohexol (OMNIPAQUE 300) 300 MG/ML injection 2 mL 2 mL, Epidural, ONCE, On Sat11/17/24 at 0900, For 1 dose Given 11/17/2024 8:38 AM CDT 2 mL documented in this encounter Care Teams Hand Developer Relationship Specialty Start Date End Date Michelet Velasco MD [address] [place] [address] PCP - General 10/20/13 documented as of this encounter
--- OUTSIDE RECORDS SUMMARY | 2024-11-20 09:30 | XMS_ITS | Encounter Summary ---
Author Organization [facility] Address [facility] [place] [address] Care Team Providers Care Candy Attendant Name Role Phone Tatyana Dwyer MD Primary Care P rolorettader Annalee Toussaint PA-C Unavailable Cr Fung MD Unavailable [phone] Bianca Rubalcava RN Unavailable [phone] Wm Rayn MD Unavailable Tatyana Dwyer MD Unavailable Christen Gallardo MD Unavailable [phone] Ana Fink MD Unavailable Reason for Visit * Reason Comments Physical Not doing labs today Encounter Details Date Type Department Care Team (Late st Contact Info) Description 11/20/2024 9:30 AM CDT Office Visit [address] [place] [address] Tatyana Dwyer MD [address] [place] [address] Routine general medical examination at a health care facility (Primary Dx); Tachycardia; HTN, goal below 140/90; Vitamin deficiency Social History Tobacco Use Types Packs/Day Years Used Date Smoking Tobacco: Never Passive Smoke Exposure: Never Smokeless Tobacco: Never Tobacco Cessation:Counseling Given: Not Answered Alcohol Use Standard Drinks/Week Comments Yes 1 (1 standard drink = 0.6 oz pur e alcohol) 1-2 drinks per week Social Connection and Isolation Panel [NHANES] A nswer Date Recorded Frequency of Communication with Friends and Fami ly Not on file 11/15/2024 How often do you get together with friends or re latives? Twice a week 11/15/2024 Attends Yazidi Services Not on file 11/15 Active Member of Clubs or Organizations Not on f ile 11/15/2024 Attends Club or Organization Meetings Not on sheila e 11/15/2024 Marital Status Not on file 11/15/2024 AUDIT-C Answer Date Recorded Q1: How often [...] PHQ-2 Answer Date Recorded PHQ-2 Score 0 11/20/2024 [facility] - Occupational Stress Questionnaire Answer Date Recorded Do you feel stress - tense, restless, nervous, or anxious, or unable to sleep at night because your mind is troubled all the time - these days? Not at all 11/15/2024 Exercise Vital Sign Answer Date Recorde d On average, how many days pe r week do you engage in moderate to strenuous exercise (like a brisk walk)? 7 days 11/15/2024 On average, how many minutes do you engage in exercise at this level? 40 min 11/15/2024 Adolescent Education Answer Date Record ed Getting School Help Needed Not on file 03/16 Food Insecurity Answer Date Recorded Within the past 12 months, d id you worry that your food would run out before you got money to buy more? No 11/15/2024 Within the past 12 months, d id the food you bought just not last and you didn t have money to get more? No 11/15/2024 Housing Stability Answer Date Recorded Do you have housing? (Housin g is defined as stable permanent housing and does not include staying outside in a car, in a tent, in an abandoned building, in an overnight care home, or couch-surfing.) Yes 11/15/2024 Are you worried about losing your housing? No 11/15/2024 Financial Resource Strain Answer Date R ecorded Within the past 12 months, h ave you or your family members you live with been unable to get utilities (heat, electricity) when it was really needed? No 11/15/2024 Transportation Needs Answer Date Record ed Within the past 12 months, h as lack of transportation kept you from medical appointments, getting your medicines, non-medical meetings or appointments, work, or from getting things that you need? No 11/15/2024 Interpersonal Safety Answer Date Record ed Do you feel physically and e motionally safe where you currently live? Yes 11/20/2024 Within the past 12 months, h ave you been hit, slapped, kicked or otherwise physically hurt by someone? No 11/20/2024 Within the past 12 months, h ave you been humiliated or emotionally abused in other ways by your partner or ex-partner? 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 Gender Identity Male 12/19/2020 9:52 PM CDT Sexual Orientation Straight 12/19/2020 9: 52 PM CDT documented as of this encounter Last Filed Vital Signs Vital Sign Reading Time Taken Comments Blood Pressure 120/72 11/20/2024 9:13 AM CDT Pulse 85 11/20/2024 9:13 AM CDT Temperature 36.4 C (97.5 F) 11/20/2024 9:13 AM CDT Respiratory Rate 16 11/20/2024 9:13 AM CDT Oxygen Saturation 98% 11/20/2024 9:13 AM CDT Inhaled Oxygen Concentration - - Weight 132.9 kg (293 lb) 11/20/2024 9:13 AM CDT Height 180.3 cm (5' 11) 11/20/2024 9:13 AM CDT Body Mass Index 40.87 11/20/2024 9:13 AM CDT documented in this encounter Patient Instructions * Patient Instructions* Tatyana Dwyer MD - 11/20/2024 9:30 AM CDT Plan: If the blood pressure gets below 100 - 110 may stop the hydrochlorothiazide or reduce Lisinopril to10 mg 2. Please make a lab appointment for fasting labs November 23. Next ANNUAL EXAM after November 21, 2025 documented in this encounter Progress Notes * Tatyana Dwyer MD - 11/20/2024 9:30 AM CDT Images from the original note were not included. Dr Lam's note Patient's instructions / PLAN: Plan: If the blood pressure gets below 100 - 110 may stop the hydrochlorothiazide or reduce Lisinopril to10 mg 2. Please make a lab appointment for fasting labs November 23. Next ANNUAL EXAM after November 21, 2025 ASSESSMENT & PLAN: (Z00.00) Routine general medical examination at a health care facility (primary encounter diagnosis) Comment: Plan: (R00.0) Tachycardia Comment: Controlled Plan: hydrochlorothiazide (HYDRODIURIL) 25 MG tablet, nebivolol (BYSTOLIC) 2.5 MG tablet (I10) HTN, goal below 140/90 Comment: Trending down since he lost his significant weight Plan: hydrochlorothiazide (HYDRODIURIL) 25 MG tablet, lisinopril (ZESTRIL) 20 MG tablet, nebivolol (BYSTOLIC) 2.5 MG tablet (E56.9) Vitamin deficiency Comment: Plan: Folate, Vitamin B1 whole blood, Folate, Vitamin B6 Chief Complaint: Annual exam Follow up chronic medical problems SUBJECTIVE: History of present illness We reviewed the chronic medical problems as above. I reviewed the recent tests results in Epic ROS: ROS: negative for fever, chills, cough, wheezes, chest pain, shortness of breath, vomiting, abdominal pain, leg swelling PMHx: - reviewed Past Medical History: Diagnosis Date GERD (gastroesophageal reflux disease) Hyperlipidemia Hypertension 11/22/2015 At rest in ER, BP was 134/89 Hypogonadotropic hypogonadism Obesity BMI > 50 PJ (obstructive sleep apnea) Other and unspecified disc disorder of unspecified region Intervertebral disc disorders Pituitary adenoma (H) Seasonal allergies PSHx: reviewed Past Surgical History: Procedure Laterality Date COLONOSCOPY N/A 07/17/2018 Procedure: COLONOSCOPY; Surgeon: Manish Ryan MD; Location: GI Ear drum repair left ENT SURGERY 1994 Surgical repair of eardrum ESOPHAGOSCOPY, GASTROSCOPY, DUODENOSCOPY (EGD), COMBINED N/A 07/17/2018 Procedure: ESOPHAGOSCOPY, GASTROSCOPY, DUODENOSCOPY (EGD) &COLONOSCOPY; Surgeon: Manish Ryan MD; Location: GI IR LUMBAR PUNCTURE 10/02/2023 ORTHOPEDIC SURGERY 2004 Repair of Ulnar Collateral Ligament in Right Hand SURGICAL HISTORY OF - [place] of Lumbar spine L5-S1 SURGICAL HISTORY OF - 2005 repair right hand injury Soc Hx: No daily alcohol, no smoking Social History Socioeconomic History Marital status: Spouse name: Not on file Number of children: Not on file Years of education: Not on file Highest education level: Not on file Occupational History Not on file Tobacco Use Smoking status: Never Passive exposure: Never Smokeless tobacco: Never Vaping Use Vaping status: Never Used Substance and Sexual Activity Alcohol use: Yes Alcohol/week: 1.0 standard drink of alcohol Comment: 1-2 drinks per week Drug use: Never Comment: marijuana in the past Sexual activity: Yes Partners: Female control/protection: Male Surgical Comment: Vascetomy Other Topics Concern Parent/sibling w/ CABG, CA or angioplasty before 65F 55M? No Social History Narrative Not on file Social Drivers of Health Financial Resource Strain: Low Risk (11/15/2024) Financial Resource Strain Within the past 12 months, have you or your family members you live with been unable to get utilities (heat, electricity) when it was really needed?: No Food Insecurity: Low Risk (11/15/2024) Food Insecurity Within the past 12 months, did you worry that your food would run out before you got money to buy more?: No Within the past 12 months, did the food you bought just not last and you didn???t have money to getmore?: No Transportation Needs: Low Risk (11/15/2024) Transportation Needs Within the past 12 months, has lack of transportation kept you from medical appointments, getting your medicines, non-medical meetings or appointments, work, or from getting things that you need?: No Physical Activity: Sufficiently Active (11/15/2024) Exercise Vital Sign Days of Exercise per Week: 7 days Minutes of Exercise per Session: 40 min Stress: No Stress Concern Present (11/15/2024) [facility] - Occupational Stress Questionnaire Feeling of Stress : Not at all Social Connections: Unknown (11/15/2024) Social Connection and Isolation Panel [NHANES] Frequency of Communication with Friends and Family: Not on file Frequency of Social Gatherings with Friends and Family: Twice a week Attends Yazidi Services: Not on file Active Member of Clubs or Organizations: Not on file Attends Club or Organization Meetings: Not on file Marital Status: Not on file Interpersonal Safety: Low Risk (11/20/2024) Interpersonal Safety Do you feel physically and emotionally safe where you currently live?: Yes Within the past 12 months, have you been hit, slapped, kicked or otherwise physically hurt by someone?: No Within the past 12 months, have you been humiliated or emotionally abused in other ways by your partner or ex-partner?: No Housing Stability: Low Risk (11/15/2024) Housing Stability Do you have housing? : Yes Are you worried about losing your housing?: No Fam Hx: reviewed Family History Problem Relation Age of Onset Psychotic Disorder Mother Manic Depression, General Depression/anxiety Hypertension Mother Depression Mother Mental Illness Mother Heart Disease Mother Mild heart failure Lipids Father Cancer Father Duodenal/colon cancer Hyperlipidemia Father Other Cancer Father Duodenal Cancer Colon Cancer Father Eye Disorder Maternal Grandmother Hypertension Maternal Grandfather Hyperlipidemia Maternal Grandfather Cerebrovascular Disease Maternal Grandfather TIA in 2019 Heart Disease Paternal Grandmother Hypertension Paternal Grandmother Alzheimer Disease Paternal Grandfather No Known Problems Sister Prostate Cancer Paternal Uncle Asthma Sister Melanoma No family hx of Skin Cancer No family hx of Screening: reviewed All: reviewed Meds: reviewed Current Outpatient Medications Medication Sig Dispense Refill hydrochlorothiazide (HYDRODIURIL) 25 MG tablet TAKE 1 TO 2 TABLETS BY MOUTH DAILY 140 tablet 3 lisinopril (ZESTRIL) 20 MG tablet Take 1 tablet (20 mg) by mouth daily 90 tablet 3 MULTIPLE VITAMIN PO nebivolol (BYSTOLIC) 2.5 MG tablet Take 1 tablet (2.5 mg) by mouth daily. 90 tablet 0 omega 3 1000 MG CAPS Take 1 g by mouth daily 90 capsule Probiotic Product (PROBIOTIC ADVANCED PO) Take by mouth daily Syringe/Needle, Disp, 22G X 1 3 ML MISC 1 each every 14 days. 7 each 3 tadalafil (CIALIS) 10 MG tablet Take 1 tablet by mouth daily as needed, take pre intercourse as directed. 30 tablet 2 testosterone cypionate (DEPOTESTOSTERONE) 200 MG/ML injection Inject 0.75 mLs (150 mg) into the muscle every 14 days. 2 mL 5 tirzepatide-Weight Management (ZEPBOUND) 10 MG/0.5ML prefilled pen Inject 0.5 mLs (10 mg) subcutaneously every 7 days. 2 mL 3 OBJECTIVE: Physical Exam : Blood pressure 120/72, pulse 85, temperature 97.5 ??F (36.4 ??C), temperature source Tympanic, resp. rate 16, height 1.803 m (5' 11), weight 132.9 kg (293 lb), SpO2 98%. NAD, appears comfortable Skin clear, no rashes Neck: supple, no JVD, no thyroidmegaly Lymph nodes non palpable in the cervical, supraclavicular axillaries, Chest: clear to auscultation with good respiratory effort Cardiac: S1S2, RRR, no mgr appreciated Abdomen: soft, not tender, not distended, audible bowel sound, no hepatosplenomegaly, no palpable masses, no abdominal bruits Extremities: no cyanosis, clubbing or edema. Neuro: A, Ox3, no focal signs. Appropriate preventive services were discussed with this patient, including applicable screening asappropriate for nutrition, physical activity Appropriate preventive services were discussed with this patient, including applicable screening asappropriate for -- vaccines -- nutrition, -- physical activity -- fall prevention, -- keeping a healthy weight -- cognition -- see below MME -- Tobacco-use cessation, -- not smoker Tatyana Lam MD Internal Medicine ############################### Preventive Care Visit [facility] Tatyana Dwyer MD, Internal Medicine Nov 20, 2024 Jae Braun is a 39 year old, presenting for the following: Physical (Not doing labs today) 11/20/2024 9:12 AM Additional Questions Roomed by Cinthya QUINTANA HPI Advance Care Planning Patient states has Health Care Directive and will send to [email or web address]. 11/15/2024 General Health How would you rate your overall physical health? Good Feel stress (tense, anxious, or unable to sleep) Not at all 11/15/2024 Nutrition Three or more servings of calcium each day? Yes Diet: Regular (no restrictions) How many servings of fruit and vegetables per day? 4 or more How many sweetened beverages each day? 0-1 11/15/2024 Exercise Days per week of moderate/strenous exercise 7 days Average minutes spent exercising at this level 40 min 11/15/2024 Social Factors Frequency of gathering with friends or relatives Twice a week Worry food won't last until get money to buy more No Food not last or not have enough money for food? No Do you have housing? (Housing is defined as stable permanent housing and does not include staying outside in a car, in a tent, in an abandoned building, in an overnight care home, or couch-surfing.) Yes Are you worried about losing your housing? No Lack of transportation? No Unable to get utilities (heat,electricity)? No 11/15/2024 Dental Dentist two times every year? Yes Today's PHQ-2 Score: 11/19/2024 8:22 AM PHQ-2 (??1998 Pfizer) Q1: Little interest or pleasure in doing things 0 Q2: Feeling down, depressed or hopeless 0 PHQ-2 Score 0 Q1: Little interest or pleasure in doing things Not at all Q2: Feeling down, depressed or hopeless Not at all PHQ-2 Score 0 Patient-reported 11/15/2024 Substance Use Alcohol more than 3/day or more than 7/wk No Do you use any other substances recreationally? No Social History Tobacco Use Smoking status: Never Passive exposure: Never Smokeless tobacco: Never Vaping Use Vaping status: Never Used Substance Use Topics Alcohol use: Yes Alcohol/week: 1.0 standard drink of alcohol Comment: 1-2 drinks per week Drug use: Never Comment: marijuana in the past 11/15/2024 STI Screening New sexual partner(s) since last STI/HIV test? No Reviewed and updated as needed this visit by Provider Objective Exam BP 120/72 Pulse 85 Temp 97.5 ??F (36.4 ??C) (Tympanic) Resp 16 Ht 1.803 m (5' 11) Wt 132.9 kg (293 lb) SpO2 98% BMI 40.87 kg/m?? Estimated body mass index is 40.87 kg/m?? as calculated from the following: Height as of this encounter: 1.803 m (5' 11). Weight as of this encounter: 132.9 kg (293 lb). Physical Exam Signed Electronically by: Tatyana Dwyer MD documented in this encounter Nursing Notes * Cinthya Garcia LPN - 11/20/2024 9:30 AM CDT Chief Complaint Patient presents with Physical Not doing labs today initial BP 120/72 Pulse 85 Temp 97.5 ??F (36.4 ??C) (Tympanic) Resp 16 Ht 1.803 m (5' 11) Wt 132.9 kg (293 lb) SpO2 98% BMI 40.87 kg/m?? Estimated body mass index is 40.87 kg/m?? as calculated from the following: Height as of this encounter: 1.803 m (5' 11). Weight as of this encounter: 132.9 kg (293 lb).. bp completed using cuff size large CINTHYA GARCIA LPN documented in this encounter Plan of Treatment Upcoming Encounters Date Type Department Care Team (Late st Contact Info) Description 02/10/2025 11:30 AM CDT Office Visit [facility] [address] [place] [phone] Christen Gallardo MD [address] [place] [address] 11/22/2025 10:00 AM CDT Office Visit [place] [address] [place] [phone] Tatyana Dwyer [place] [address] documented as of this encounter Results * Vitamin B6 (11/23/2024 9:45 AM CDT) Pathologist [facility] Vitamin B6 103.7 20.0 - 125.0 nmol/L 11/25/2024 10:30 AM CDT [facility] Comment: INTERPRETIVE INFORMATION: Vitamin B6 (Pyridoxal 5-Phosphate) Pyridoxal 5'-phosphate measured in a specimen collected following an 8-hour or overnight fast accurately indicates vitamin B6 nutritional status. Non-fasting specimen concentration reflects recent vitamin intake. This test was developed and its performance characteristics determined by [facility]. It has not been cleared or approved by the [place] Food and Drug Administration. This test was performed in a CLIA certified laboratory and is intended for clinical purposes. Performed By: [facility] [address] [place] [id number] Manager Behavioral: Sebastian Barrera MD, PhD CLIA Number: [id number] Blood BLOOD SPECIMEN / Unknown Venipuncture / Unknown 11/23/2024 9:45 AM CDT 11/23/2024 9:45 AM CDT Tatyana Dwyer MD LAB - BLOOD ORD ERABLES Final Result [address] [phone], [facility] [phone] * Vitamin B1 whole blood (11/23/2024 9:45 AM CDT) [facility] Vitamin B1 Whole Blood Level 136 70 - 180 nmol/L 11/26/2024 7:13 PM CDT [facility] Comment: INTERPRETIVE INFORMATION: Vitamin B1, Whole Blood This assay measures the concentration of thiamine diphosphate (TDP), the primary active form of vitamin B1. Approximately 90 percent of vitamin B1 present in whole blood is TDP. Thiamine and thiamine monophosphate, which comprise the remaining 10 percent, are not measured. This test was developed and its performance characteristics determined by [facility]. It has not been cleared or approved by the US Food and Drug Administration. This test was performed in a CLIA certified laboratory and is intended for clinical purposes. Performed By: [facility] [address] [place] [address] Manager Behavioral: Sebastian Barrera MD, PhD CLIA Number: [id number] Blood BLOOD SPECIMEN / Unknown Venipuncture / Unknown 11/23/2024 9:45 AM CDT 11/23/2024 9:45 AM CDT Tatyana Dwyer MD LAB - BLOOD ORD ERABLES Final Result [facility] [address] [place] [id number], [facility] [phone] * Folate (11/23/2024 9:45 AM CDT) Pathologist [facility] Folic Acid 16.4 4.6 - 34.8 ng/mL 11/23/2024 10:30 PM CDT [facility] Blood BLOOD SPECIMEN / Unknown Venipuncture / Unknown 11/23/2024 9:45 AM CDT 11/23/2024 9:45 AM CDT Tatyana Dwyer MD LAB - BLOOD ORD ERABLES Final Result [facility] [address] [facility], [address] [phone] documented in this encounter Visit Diagnoses Diagnosis Routine general medical examination at a health care facility- Primary Tachycardia Tachycardia, unspecified HTN, goal below 140/90 Unspecified essential hypertension Vitamin deficiency Unspecified vitamin deficiency documented in this encounter Care Teams Candy Attendant Relationship Specialty Start Date End Date Tatyana Dwyer MD [address] [place] [address] PCP - General Internal Medicine 06/01/19 Annalee Toussaint PA-C [address] [place] [address] Physician Pantry Attendant Physician Pantry Attendant - Medical 07/15/19 Cr Fung MD [address] [place] [address] [address] [place], [place] [id number] Urology 07/15/19 Bianca Rubalcava, RN Specialty Academic Affairs Specialist Urology 07/15/19 Wm Ryan MD [address] [place] [address] [phone] Resident Student in organized health care education/training program 02/01/21 Tatyana Dwyer MD [address] [place] [address] Assigned PCP 02/05/21 Christen Gallardo MD [address] [place] [address] Assigned Endocrinology Provider 11/18/21 Ana Fink MD [address] [place] [id number] Fellow Gastroenterology 10/16/22 documented as of this encounter
--- OUTSIDE RECORDS SUMMARY | 2024-11-23 10:15 | XMS_ITS | Encounter Summary ---
Author Organization [place] Address [address] [place] [address]. [place] [address] Care Team Providers Care Continuous Process Machine Operator Name Role Phone Tatyana Dwyer MD Primary Care P rovider Annalee Toussaint PA-C Unavailable [phone] Cr Fung MD Unavailable Bianca Rubalcava RN Unavailable [phone] Wm Ryan MD Unavailable [phone] Tatyana Dwyer MD Unavailable Christen Gallardo MD Unavailable [phone] Ana Fink MD Unavailable Encounter Details Date Type Department Care Team (Late st Contact Info) Description 11/23/2024 10:15 AM T Lab [facility] [address] [place] [address] HTN, goal below 140/90; Hyperlipidemia LDL goal <130; Patient request for diagnostic testing; Vitamin deficiency; Hypogonadism in male Social History Tobacco Use [...] re latives? 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 Gender Identity Male 12/19/2020 9:52 PM CDT Sexual Orientation Straight 12/19/2020 9: 52 PM CDT documented as of this encounter Plan of Treatment Upcoming Encounters Date Type Department Care Team (Late st Contact Info) Description 02/10/2025 11:30 AM CDT Office Visit [address] [place] [phone] Christen Gallardo MD [address] [place] [address] 11/22/2025 10:00 AM CDT Office Visit [facility] [address] [place] [phone] Tatyana Dwyer MD [address] [place], [place] [address] documented as of this encounter Procedures Procedure Name Priority Date/Time Associated Diagnosis Comments TESTOSTERONE FREE AND TOTAL Routine 11/23/2024 9:45 AM CDT Hypogonadism in male SEX HORMONE BINDING GLOBULIN Routine 11/23/2024 9:45 AM CDT Hypogonadism in male TESTOSTERONE FREE AND TOTAL Routine 11/23/2024 9:45 AM CDT Hypogonadism in male VITAMIN D DEFICIENCY SCREENING Routine 11/23/2024 9:45 AM CDT HTN, goal below 140/90 Hyperlipidemia LDL goal <130 Patient request for diagnostic testing VITAMIN B6 Routine 11/23/2024 9:45 AM CDT Vitamin deficiency VITAMIN B1 WHOLE BLOOD Routine 9:45 AM CDT Vitamin deficiency TSH WITH FREE T4 REFLEX Routine 11/23/2024 9:45 AM CDT HTN, goal below 140/90 Hyperlipidemia LDL goal <130 Patient request for diagnostic testing PROSTATE SPECIFIC ANTIGEN SCREEN Routine 11/23/2024 9:45 AM CDT Hypogonadism in male LIPID REFLEX TO DIRECT LDL PANEL Routine 11/23/2024 9:45 AM CDT HTN, goal below 140/90 Hyperlipidemia LDL goal <130 Patient request for diagnostic testing FOLATE Routine 11/23/2024 9:45 AM CDT Vitamin deficiency COMPREHENSIVE METABOLIC PANEL Routine 11/23/2024 9:45 AM CDT Hypogonadism in male VITAMIN B12 Routine 11/23/2024 9:45 AM CDT HTN, goal below 140/90 Hyperlipidemia LDL goal <130 Patient request for diagnostic testing CBC WITH PLATELETS Routine 11/23/2024 9: 45 AM CDT Hypogonadism in male documented in this encounter Results * Testosterone Free and Total (11/23/2024 9:45 AM CDT) Free Testosterone Calculated 16.52 ng/dL 11/25/2024 7:28 AM CDT [facility] Comment: Male Aneesh Ranges: Aneesh Stage I: Less than or equal to 0.37 ng/dL Aneesh Stage II: 0.03-2.1 ng/dL Aneesh Stage III: 0.10-9.8 ng/dL Aneesh Stage IV: 3.5-16.9 ng/dL Aneesh Stage V: 4.1-23.9 ng/dL Testosterone Total 702 240 - 950 ng/dL 11/25/2024 7:28 AM CDT [facility] Blood BLOOD SPECIMEN / Unknown Venipuncture / Unknown 11/23/2024 9:45 AM CDT 11/23/2024 9:45 AM CDT Narrative [facility] - 11/25/2024 7:28 AM CDT This test was developed and its performance characteristics determined by the [facility], Special Chemistry Laboratory. It has not been cleared or approved by the FDA. The laboratory is regulated under CLIA as qualified to perform high-complexity testing. This test is used for clinical purposes. It should not be regarded as investigational or for research. Christen Gallardo MD LAB - BLOOD ORDERABLES Final Re sult [facility] Special Drug/[facility] [address] [facility], [address] * Sex Hormone Binding Globulin (11/23/2024 9:45 AM CDT) Sex Hormone Binding Globulin 30 11 - 80 nmol/L 11/23/2024 3:07 PM CDT LABORATORY Blood BLOOD SPECIMEN / Unknown Venipuncture / Unknown 11/23/2024 9:45 AM CDT 11/23/2024 9:45 AM CDT Christen Gallardo MD LAB - BLOOD ORDERABLES Final Re sult LABORATORY [facility] [address] [facility], [address] * PSA, screen (11/23/2024 9:45 AM CDT) Pathologist [facility] Prostate Specific Antigen Screen 1.05 ng/mL 11/23/2024 3:09 PM CDT [facility] Comment:No reference ranges have been established for patients under 40 years. Blood BLOOD SPECIMEN / Unknown Venipuncture / Unknown 11/23/2024 9:45 AM CDT 11/23/2024 9:45 AM CDT [facility] - 11/23/2024 3:09 PM CDT This result is obtained using the Dana Elecsys total PSA method on the clarissa e801 immunoassay analyzer, which is an ultrasensitive method. Results obtained with different assay methods or kits cannot be used interchangeably. This test is intended for initial prostate cancer screening. PSA values exceeding the age-specific limits are suspicious for prostate disease, but additional testing, such as prostate biopsy, is needed to diagnose prostate pathology. The [employer] recommends annual examination with digital rectal examination and serum PSA beginning at age 50 and for men with a life expectancy of at least 10 years after detection of prostate cancer. For men in high-risk groups, such as Americans or men with a first-degree relative diagnosed at a younger age, testing should begin at a younger age. It is generally recommended that information be provided to patients about the benefits and limitations of testing and treatment so they can make informed decisions. us Christen Gallardo MD LAB - BLOOD ORDERABLES Final Re sult [facility] Core Lab [address] [facility], [address] [place] [address], [facility] * (ABNORMAL) Comprehensive metabolic panel (11/23/2024 9:45 AM CDT) Pathologist [facility] Sodium 137 135 - 145 mmol/L 11/23/2024 3:09 PM CDT [facility] Potassium 3.9 3.4 - 5.3 mmol/L 11/23/2024 3:09 PM CDT [facility] Carbon Dioxide (CO2) 24 22 - 29 mmol/L 11/23/2024 3:09 PM CDT [facility] Anion Gap 12 7 - 15 mmol/L 11/23/2024 3:09 PM CDT [facility] Urea Nitrogen 16.1 6.0 - 20.0 mg/dL 11/23/2024 3:09 PM CDT [facility] Creatinine 1.02 0.67 - 1.17 mg/dL 11/23/2024 3:09 PM CDT [facility] GFR Estimate >90 >60 mL/min/1.7 3m2 11/23/2024 3:09 PM CDT [facility] Comment:eGFR calculated 2020 CKD-EPI equation. Calcium 9.2 8.8 - 10.4 mg/dL 11/23/2024 3:09 PM CDT [facility] Chloride 101 98 - 107 mmol/L 11/23/2024 3:09 PM CDT [facility] Glucose 81 70 - 99 mg/dL 11/23/2024 3:09 PM CDT [facility] Alkaline Phosphatase 41 40 - 150 U/L 11/23/2024 3:09 PM CDT [facility] AST 29 0 - 45 U/L 11/23/2024 3:09 PM CDT [facility] ALT 21 0 - 70 U/L 11/23/2024 3:09 PM CDT [facility] Protein Total 7.0 6.4 - 8.3 g/dL 11/23/2024 3:09 PM CDT [facility] Albumin 4.4 3.5 - 5.2 g/dL 11/23/2024 3:09 PM CDT [facility] Bilirubin Total 1.4(H) <=1.2 mg/dL 11/23/2024 3:09 PM CDT [facility] Blood BLOOD SPECIMEN / Unknown Venipuncture / Unknown 11/23/2024 9:45 AM CDT 11/23/2024 9:45 AM CDT us Christen Gallardo MD LAB - BLOOD ORDERABLES Final Re sult [facility] LAB[facility]AT[facility] [address] [facility], [address] [place] [address], [facility] * CBC with platelets (11/23/2024 9:45 AM CDT) WBC Count 7.1 4.0 - 11.0 10e3/uL 11/23/2024 9:51 AM CDT [facility] RBC Count 5.39 4.40 - 5.90 10e6/uL 11/23/2024 9:51 AM CDT [facility] Hemoglobin 15.7 13.3 - 17.7 g/dL 11/23/2024 9:51 AM CDT [facility] Hematocrit 45.8 40.0 - 53.0 % 11/23/2024 9:51 AM CDT [facility] MCV 85 78 - 100 fL 11/23/2024 9:51 AM CDT [facility] MCH 29.1 26.5 - 33.0 pg 11/23/2024 9:51 AM CDT [facility] MCHC 34.3 31.5 - 36.5 g/dL 11/23/2024 9:51 AM CDT [facility] RDW 13.1 10.0 - 15.0 % 11/23/2024 9:51 AM CDT [facility] Platelet Count 280 150 - 450 10e3/uL 11/23/2024 9:51 AM CDT [facility] Blood BLOOD SPECIMEN / Unknown Venipuncture / Unknown 11/23/2024 9:45 AM CDT 11/23/2024 9:45 AM CDT Christen Gallardo MD LAB - BLOOD ORDERABLES Final Re sult LABORATORY [facility] Lab [address] [facility] Lab (no room number, 1st floor of clinic) [place] [address], [facility] * Vitamin B6 (11/23/2024 9:45 AM CDT) [facility] Vitamin B6 103.7 20.0 - 125.0 nmol/L 11/25/2024 10:30 AM CDT [facility] Comment: INTERPRETIVE INFORMATION: Vitamin B6 (Pyridoxal 5-Phosphate) Pyridoxal 5'-phosphate measured in a specimen collected following an 8-hour or overnight fast accurately indicates vitamin B6 nutritional status. Non-fasting specimen concentration reflects recent vitamin intake. This test was developed and its performance characteristics determined by [facility]. It has not been cleared or approved by the [place] Food and Drug Administration. This test was performed in a CLIA certified laboratory and is intended for clinical purposes. Performed By: [facility] [address] [place] [id number] Production Posting Clerk: Sebastian Barrera MD, PhD CLIA Number: [id number] Blood BLOOD SPECIMEN / Unknown Venipuncture / Unknown 11/23/2024 9:45 AM CDT 11/23/2024 9:45 AM CDT Tatyana Dwyer MD LAB - BLOOD ORD ERABLES Final Result Performing Organization Address [facility]/ZIP Co de Phone Number [address] [address], [facility] [phone] * Vitamin B1 whole blood (11/23/2024 9:45 AM CDT) [facility] Vitamin B1 Whole Blood Level 136 70 - 180 nmol/L 11/26/2024 7:13 PM CDT [facility] Comment: INTERPRETIVE INFORMATION: Vitamin B1, Whole Blood This assay measures the concentration of thiamine diphosphate (TDP), the primary active form of vitamin B1. Approximately 90 percent of vitamin B1 present in whole blood is TDP. Thiamine and thiamine monophosphate, which comprise the remaining 10 percent, are not measured. This test was developed and its performance characteristics determined by [facility]. It has not been cleared or approved by the US Food and Drug Administration. This test was performed in a CLIA certified laboratory and is intended for clinical purposes. Performed By: [facility] [address] [place], [place] [id number] Production Posting Clerk: Sebastian Barrera MD, PhD CLIA Number: [id number] Blood BLOOD SPECIMEN / Unknown Venipuncture / Unknown 11/23/2024 9:45 AM CDT 11/23/2024 9:45 AM CDT Tatyana Dwyer MD LAB - BLOOD ORD ERABLES Final Result Performing Organization Address City/[facility]/ZIP Co de Phone Number [address] [phone], [facility] [phone] * Folate (11/23/2024 9:45 AM CDT) Folic Acid 16.4 4.6 - 34.8 ng/mL 11/23/2024 10:30 PM CDT [facility] Blood BLOOD SPECIMEN / Unknown Venipuncture / Unknown 11/23/2024 9:45 AM CDT 11/23/2024 9:45 AM CDT Tatyana Dwyer MD LAB - BLOOD ORD ERABLES Final Result LABORATORY [facility] [address] [facility], [address] * Vitamin B12 (11/23/2024 9:45 AM CDT) Pathologist [facility] Vitamin B12 533 232 - 1,245 pg/mL 11/23/2024 3:46 PM CDT [facility] LAB[facility]ATORY Blood BLOOD SPECIMEN / Unknown Venipuncture / Unknown 11/23/2024 9:45 AM CDT 11/23/2024 9:45 AM CDT Tatyana Dwyer MD LAB - BLOOD ORD ERABLES Final Result LABORATORY [facility] Core Lab [address] [facility], [address] * TSH with free T4 reflex (11/23/2024 9:45 AM CDT) Pathologist [facility] TSH 1.08 0.30 - 4.20 uIU/mL 11/23/2024 3:46 PM CDT U LAB[facility]ATORY Blood BLOOD SPECIMEN / Unknown Venipuncture / Unknown 11/23/2024 9:45 AM CDT 11/23/2024 9:45 AM CDT Tatyana Dwyer MD LAB - BLOOD ORD ERABLES Final Result LABORATORY [facility] [address] [facility], [address] [phone] * (ABNORMAL) Vitamin D Deficiency (11/23/2024 9:45 AM CDT) Vitamin D, Total (25-Hydroxy) 63(H) 20 - 50 ng/mL 11/23/2024 3:46 PM CDT [facility] Comment:indicates supplement ation, with increased risk of hypercalciuria Blood BLOOD SPECIMEN / Unknown Venipuncture / Unknown 11/23/2024 9:45 AM CDT 11/23/2024 9:45 AM CDT Narrative [facility] - 11/23/2024 3:46 PM CDT Season, race, dietary intake, and treatment affect the concentration of 69-rrhpjzm-Kphvgjm D. Values may decrease during winter months and increase during summer months. Vitamin D determination is routinely performed by an immunoassay specific for 25 hydroxyvitamin D3. If an individual is on vitamin D2(ergocalciferol) supplementation, please specify 25 OH vitamin D2 and D3 level determination by LCMSMS test VITD23. us Tatyana Dwyer MD LAB - BLOOD ORD ERABLES Final Result U LABORATORY [facility] [address] [facility], [address] [phone] * (ABNORMAL) Lipid panel reflex to direct LDL Fasting (11/23/2024 9:45 AM CDT) Cholesterol 181 <200 mg/dL 11/23/2024 3:46 PM CDT [facility] Triglycerides 69 <150 mg/dL 11/23/2024 3:46 PM CDT [facility] Direct Measure HDL 54 >=40 mg/dL 11/23/2024 3:46 PM CDT [facility] LDL Cholesterol Calculated 113(H) <100 mg/dL 11/23/2024 3:46 PM CDT [facility] Non HDL Cholesterol 127 <130 mg/dL 11/23/2024 3:46 PM CDT [facility] Patient Fasting > 8hrs? Yes 11/23/2024 3:46 PM CDT [facility] Blood BLOOD SPECIMEN / Unknown Venipuncture / Unknown 11/23/2024 9:45 AM CDT 11/23/2024 9:45 AM CDT Narrative [facility] - 11/23/2024 3:46 PM CDT Cholesterol Desirable: < 200 mg/dL Borderline High: 200 - 239 mg/dL High: >= 240 mg/dL Triglycerides Normal: < 150 mg/dL Borderline High: 150 - 199 mg/dL High: 200-499 mg/dL Very High: >= 500 mg/dL Direct Measure HDL Female: >= 50 mg/dL Male: >= 40 mg/dL LDL Cholesterol Desirable: < 100 mg/dL Above Desirable: 100 - 129 mg/dL Borderline High: 130 - 159 mg/dL High: 160 - 189 mg/dL Very High: >= 190 mg/dL Non HDL Cholesterol Desirable: < 130 mg/dL Above Desirable: 130 - 159 mg/dL Borderline High: 160 - 189 mg/dL High: 190 - 219 mg/dL Very High: >= 220 mg/dL us Tatyana Dwyer MD LAB - BLOOD ORD ERABLES Final Result U LABORATORY [facility] [address] [facility], [address] [place] [address], [facility] documented in this encounter Visit Diagnoses Diagnosis HTN, goal below 140/90 Unspecified essential hypertension Hyperlipidemia LDL goal <130 Other and unspecified hyperlipidemia Patient request for diagnostic testing Other specified general medical examination Vitamin deficiency Unspecified vitamin deficiency Hypogonadism in male documented in this encounter Care Teams Continuous Process Machine Operator Relationship Specialty Start Date End Date Tatyana Dwyer MD [address] [place] [address] PCP - General Internal Medicine 06/01/19 Annalee Toussaint, DU [address] [place] [address] Physician Cooling Pipe Inspector Physician Cooling Pipe Inspector - Medical 07/15/19 Cr Fung MD [address] [place] [address] [id number] Urology 07/15/19 Bianca Rubalcava, RN Specialty Spool Fixer Urology 07/15/19 Wm Ryan MD [address] [place] [address] [id number] Resident Student in organized health care education/training program 02/01/21 Tatyana Dwyer MD [address] [place], [place] [address] Assigned PCP 02/05/21 Christen Gallardo MD [address] [place], [place] [address] Assigned Endocrinology Provider 11/18/21 Ana Fink MD [address] [place] [address] [id number] Fellow Gastroenterology 10/16/22 documented as of this encounter
--- OUTSIDE RECORDS SUMMARY | 2024-12-25 13:39 | XMS_ITS | Encounter Summary ---
Author Organization [place] Address [facility] [place] [address] Care Team Providers Care Dev Technical Mgr Name Role Phone Tatyana Dwyer MD Primary Care P rolorettader Annalee Toussaint PA-C Unavailable [phone] Cr Fung MD Unavailable [phone] Bianca Rubalcava RN Unavailable [phone] Wm Ryan MD Unavailable [phone] Tatyana Dwyer MD Unavailable Christen Gallardo MD Unavailable [phone] Ana Fink MD Unavailable Reason for Visit * Reason Onset Date Comments Prior Auth - Medication 09/10/2024 tirzepat lucas-Weight Management (ZEPBOUND) 5 MG/0.5ML prefilled pen Encounter Details Date Type Department Care Team (Late st Contact Info) Description 09/10/2024 Telephone [facility] Special[facility] [address] [facility] [address] [place] [address] Christen Gallardo MD [address] [place] [id number] Prior Auth - Medication (tirzepatide-Weight Management (ZEPBOUND) [...] PM CDT 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 Prior Authorization Approval Medication: ZEPBOUND 5 MG/0.5ML SC SOAJ Authorization Effective Date: 09/12/2024 Authorization Expiration Date: 03/15/2025 Approved Dose/Quantity: Reference #: Insurance Company: [employer] ([facility]) - Expected CoPay: $ CoPay Card Available: Financial Assistance Needed: Which Pharmacy is filling the prescription: [id number] [facility] [place] [facility] [address] Pharm[facility] Notified: Yes Patient Notified: Instructed pharmacy to notify patient when script is ready to machine operator hop picker/ship. * Telephone Encounter - Mami Flor - 09/12/2024 11:21 AM CDT Images from the original note were not included. Retail Pharmacy Prior Authorization Team PA Initiation Medication: ZEPBOUND 5 MG/0.5ML SC SOAJ Insurance Company: [employer] ([facility]) - Pharmacy Filling the Rx: [facility] #[id number] [place], [place] - [address] [place] [address] W [facility] [place] [facility] [address] F[address] Pharmacy [...] PA encounter and send back to the [facility] PA pool [[id number]]. If you have questions about the turn-around time or about our process, please reach out to our airfreight loading supervisor Radha Jimenez. Thank you! RPPA (Retail Pharmacy Prior Authorization) team [id number] * Telephone Encounter - John Yan MA - 09/10/2024 1:04 PM CDT CURRAN: [id number] Prior Authorization Retail Medication Request Medication/Dose: tirzepatide-Weight Management (ZEPBOUND) 5 MG/0.5ML prefilled pen Diagnosis and ICD code (if different than what is on RX): E66.813, E66.01, Z68.42 New/renewal/insurance change PA/secondary ins. PA: Previously Tried and Failed: Rationale: Insurance Primary: [facility] Secondary (if applicable): Insurance ID: Pharmacy Information (if different than what is on RX) Name: [facility] Information Preferred routing pool for dept communication: [facility] documented in this encounter Plan of Treatment Upcoming Encounters Date Type Department Care Team (Late st Contact Info) Description 02/10/2025 11:30 AM CDT Office Visit [facility] [address] [facility] [address] [place] [phone] Christen Gallardo MD [address] [place], [place] [address] 11/22/2025 10:00 AM CDT Office Visit [facility] [address] [facility] [address] [place] [phone] Tatyana Dwyer MD [address] [place], [place] [address] documented as of this encounter Visit Diagnoses Not on filedocumented in this encounter Care Teams Dev Technical Mgr Relationship Specialty Start Date End Date Tatyana Dwyer MD [address] [place], [place] [address] PCP - General Internal Medicine 06/01/19 Annalee Toussaint PA-C [address] [facility] [address] [place] [address] Physician Flotation Operator Physician Flotation Operator - Medical 07/15/19 Cr Fung MD [address] [place] [address] [address] [place] [address] Urology 07/15/19 Bianca Rubalcava, RODNEY Specialty 911 Operator Urology 07/15/19 Wm Ryan MD [address] [place] [id number] Resident Student in [facility] health care education/training program 02/01/21 Tatyana Dwyer MD [address] [place] [address] Assigned PCP 02/05/21 Christen Gallardo MD [address] [place], [place] [address] Assigned Endocrinology Provider 11/18/21 Ana Fink MD [address] [place] [address] [id number] Fellow Gastroenterology 10/16/22 documented as of this encounter
--- OUTSIDE RECORDS SUMMARY | 2024-12-25 13:39 | XMS_ITS | Encounter Summary ---
Author Organization [facility] [place] Address [address] [place] [address] Care Team Providers Care Desizing Machine Operator Name Role Phone Tatyana Dwyer MD Primary Care P rovider Annalee Toussaint PA-C Unavailable [phone] Cr Fung MD Unavailable Bianca Rubalcava RN Unavailable [phone] Steven Tatum MD Unavailable Wm Ryan MD Unavailable Tatyana Dwyer MD Unavailable Amalia Agosto GC Unavailable [phone] Jaime Wood MD Unavailable [phone] Chritsen Gallardo MD Unavailable [phone] Ana Fink MD Unavailable Encounter Details Date Type Department Care Team (Late st Contact Info) Description 04/17/2021 [facility] [place] [address] [place] [phone] Oneil Marin Social History Tobacco Use [...] PM CDT 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 Gender Identity Male 12/19/2020 9:52 PM CDT [...] Description 02/10/2025 11:30 AM CDT Office Visit [facility] [address] [place] [address] [address] [place] [address] Christen Gallardo MD [address] [place], [place] [address] 11/22/2025 10:00 AM CDT Office Visit [address] [place] [address] [place] [address] Tatyana Dwyer MD [address] [place], [place] [address] documented as of this encounter Visit Diagnoses Not on filedocumented in this encounter Additional Health Concerns Infection Onset Date Last Indicated Resolved Time Rule Out COVID-19 10/25/2021 10/25/2021 10/26/2021 12:43 PM CDT COVID-19 10/25/2021 10/25/2021 11/15/2021 11:3 9 PM CDT documented as of this encounter Care Teams Desizing Machine Operator Relationship Specialty Start Date End Date Tatyana Dwyer MD [address] [place] [address] PCP - General Internal Medicine 06/01/19 Annalee Toussaint PA-C [address] [place], [place] [address] Physician Animal Care Supervisor Physician Animal Care Supervisor - Medical 07/15/19 Cr Fung MD [address] [id number] Urology 07/15/19 Bianca Rubalcava, RN Specialty Residential Program Coordinator Urology 07/15/19 [place] [address] [place] [address] Assigned Surgical Provider 04/08/20 07/22/21 Wm Ryan MD [address] [place], [place] [address]315 Resident Student in organized health care education/training program 02/01/21 Tatyana Dwyer MD [address] [place] [address] Assigned PCP 02/05/21 Amalia Agosto GC [address] [place] [address] Assigned OBGYN Provider 05/07/21 07/15/21 Jaime Wood MD [address] [place] [address] Assigned Sleep Provider 07/09/21 01/04/23 Christen Gallardo MD [address] [place] [place] [address] Assigned Endocrinology Provider 11/18/21 Ana Fink MD [address] [place] [address] Fellow Gastroenterology 10/16/22 documented as of this encounter
--- OUTSIDE RECORDS SUMMARY | 2024-12-25 13:39 | XMS_ITS | Clinical Summary ---
Author Organization [facility] Address [address] [place] [address] Care Team Providers Care Glass Inspector Name Role Phone Tatyana Dwyer MD Primary Care P rovider Annalee Toussaint PA-C Unavailable Cr Fung MD Unavailable Bianca Rubalcava RN Unavailable [phone] Wm Ryan MD Unavailable Tatyana Dwyer MD Unavailable Christen Gallardo MD Unavailable [phone] Ana Fink MD Unavailable Allergies Active Allergy Reactions Criticality Noted Date Comments No Known Drug Allergy 09/25/2010 Medications MULTIPLE VITAMIN PO Active Probiotic Product (PROBIOTIC ADVANCED PO) Take by mouth daily Active omega 3 1000 MG CAPS Take 1 g by mouth daily 90 capsule 11/25/19 16 Active tadalafil (CIALIS) 10 MG tabletIndicatio ns:Erectile [...] 09/08/19 25 Active tirzepatide-Dirk ght Management (ZEPBOUND) 10 MG/0.5ML prefilled penIndications: Class 3 severe obesity with serious comorbidity and body mass index (BMI) of 45.0 to 49.9 in adult, unspecified obesity type (H) Inject 0.5 mLs (10 mg) subcutaneously every 7 days. 2 mL 3 11/20/19 25 Active hydrochlorothia zide (HYDRODIURIL) 25 MG tabletIndicatio ns:Tachycardia, HTN, goal below 140/90 TAKE 1 TO 2 TABLETS BY MOUTH DAILY 140 tablet 4 11/21/19 25 Active lisinopril (ZESTRIL) 20 MG tabletIndicatio ns:HTN, goal below 140/90 Take 1 tablet (20 mg) by mouth daily. 90 tablet 4 11/21/19 25 Active nebivolol (BYSTOLIC) 2.5 MG tabletIndicatio ns:Tachycardia, HTN, goal below 140/90 Take 1 tablet (2.5 mg) by mouth daily. 90 tablet 4 11/21/19 25 Active Active Problems Problem Noted Date [...] (12/02/2019): Added automatically from request for surgery [id number] Family history of acute heart failure ( [...] - small hemorrh agic cyst as per [facility] 08/05/2017 08/05/2017 Essential hypertension, benign 11/25/2015 08/05/2017 Encounters Date Type Department Care Team Description 12/01/2024 Results Follow-Up [address] [place] [phone] Christen Gallardo MD Subj: Message about your results 11/29/2024 Results Follow-Up [facility] [address] [facility] [address] [place] [phone] Tatyana Dwyer MD Subj: Message about your results 11/29/2024 MyC Medical Advice [facility] [address] [facility] [address] [place] [address] Tatyana Dwyer MD Results 11/23/2024 10:15 AM CDT Lab [facility] [address] [place] [phone] HTN, goal below 140/90; Hyperlipidemia LDL goal <130; Patient request for diagnostic testing; Vitamin deficiency; Hypogonadism in male 11/23/2024 Travel 11/20/2024 9:30 AM CDT Office Visit [facility] [address] [facility] [address] [place] [phone] Tatyana Dwyer MD Routine general medical examination at a health care facility (Primary Dx); Tachycardia; HTN, goal below 140/90; Vitamin deficiency 11/20/2024 Travel 11/19/2024 Travel 11/18/2024 MyC Medical Advice [address] [place] [phone] Christen Gallardo MD Medication Request (Zepbound dose increase) 11/15/2024 Travel 11/05/2024 Travel 11/02/2024 MyC Medical Advice [facility] [address] [place] [phone] Tatyana Dwyer MD Orders (lab) 10/19/2024 11:30 AM CDT - 10/19/2024 11:59 PM CDT Hospital Encounter [facility] [address] [place] [phone] Christen Gallardo MD Pituitary adenoma (H) Discharge Disposition: Home or Self Care 10/19/2024 Travel 10/14/2024 Travel from Last 3 Months Immunizations Immunization Administration Dates Next Due COVID-19 MONOVALENT 12+ (Pfizer) 05/25/2021,10/16,10/18/2020 Flu, Unspecified 02/16/2023,02/18/2020 INFLUENZA,TRIVALENT (FLUCELVAX) 06/03/2024 Influenza (IIV3) PF 02/27/2021, 8,03/03/2017,03/06,02/25/2012,02/18/2011,04/02/2010 Influenza (prior [...] Cancer Paternal Uncle No Known Problems Sister 1 Asthma Sister 2 Melanoma No family hx of Skin Cancer No family hx of Relation Status Comments Father Alive Maternal Grandfather Alive Maternal Grandmother Alive Mother Alive Paternal Grandfather Paternal Grandmother Alive Paternal Uncle Sister 1 Alive Sister 2 Alive Social History Tobacco Use Types Packs/Day [...] re latives? 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 Gender Identity Male 12/19/2020 9:52 PM CDT [...] Mass Index 40.87 11/20/2024 9:13 AM CDT Plan of Treatment Upcoming Encounters Date Type Department Care Team (Late st Contact Info) Description 02/10/2025 11:30 AM CDT Office Visit [facility] [address] [facility] [address] [place] [phone] Christen Gallardo MD [address] [place] [address] 11/22/2025 10:00 AM CDT Office Visit [facility] [address] [place] [phone] Tatyana Dwyer MD [address] [place] [address] Health Maintenance Due Date Last Done Comments CT COLONOGRAPHY 1985 FIT 1985 FLEX SIG 1985 sDNA (Cologuard) 1985 HEPATITIS B VACCINE (1 of 3 - 19+ 3-dose series) 2004 ANNUAL REVIEW OF HM ORDERS 06/21/2023 06/21/2022 INFLUENZA VACCINE (#1) 2025 4, 02/23/2023, 02/16/2023, Additional history exists YEARLY PREVENTIVE VISIT 11/20/2025 11/21/19 25, 11/21/2023, 01/26/2021, Additional history exists BMP 11/23/2025 11/23/2024, 06/0 11/2023, 04/02/2023, Additional history exists DIABETES SCREENING 11/24/2027 11/23/2024, 0 11/21/2023, 11/21/2023, Additional history exists COLONOSCOPY 10/08/2028 10/09/2023, 04/2 09/2023, 07/17/2018, Additional history exists COLORECTAL CANCER SCREENING 10/08/2028 ADVANCE CARE PLANNING 11/22/2029 11/22/2024 , 11/21/2023, 01/26/2021, Additional history exists DTAP/TDAP/TD VACCINE (3 - Td or Tdap) 11/26/2031 11/25/2021, 09/27/2010 ZOSTER VACCINE (1 of 2) 08/31/2035 MENINGITIS VACCINE Aged Out 07/06/2003 No longer eligible based on patient's age to complete this topic HIV SCREENING Completed 08/12/2019 HEPATITIS C SCREENING Completed 12/03/2022, 020 COVID-19 VACCINE Completed 06/20/2024, , 03/30/2022, Additional history exists PHQ-2 (once per calendar year) Completed 11/20/2024, 08/18/2024, 11/21/2023, Additional history exists HPV VACCINE Aged Out [...] 11/23/2024 9:45 AM CDT Hypogonadism in male PROSTATE SPECIFIC ANTIGEN SCREEN Routine 11/23/2024 9:45 AM CDT Hypogonadism in male COMPREHENSIVE METABOLIC PANEL Routine 11/23/2024 9:45 AM CDT Hypogonadism in male CBC WITH PLATELETS Routine 11/23/2024 9: 45 AM CDT Hypogonadism in male VITAMIN B6 Routine 11/23/2024 9:45 AM CDT Vitamin deficiency VITAMIN B1 WHOLE BLOOD Routine 9:45 AM CDT Vitamin deficiency FOLATE Routine 11/23/2024 9:45 AM CDT Vitamin deficiency VITAMIN B12 Routine 11/23/2024 9:45 AM CDT HTN, goal below 140/90 Hyperlipidemia LDL goal <130 Patient request for diagnostic testing TSH WITH FREE T4 REFLEX Routine 11/23/2024 9:45 AM CDT HTN, goal below 140/90 Hyperlipidemia LDL goal <130 Patient request for diagnostic testing VITAMIN D DEFICIENCY SCREENING Routine 11/23/2024 9:45 AM CDT HTN, goal below 140/90 Hyperlipidemia LDL goal <130 Patient request for diagnostic testing LIPID REFLEX TO DIRECT LDL PANEL Routine 11/23/2024 9:45 AM CDT HTN, goal below 140/90 Hyperlipidemia LDL goal <130 Patient request for diagnostic testing MR BRAIN W/O & W CONTRAST Routine 10/19/2024 12:29 PM CDT Pituitary adenoma (H) COLONOSCOPY - HIM SCAN 4 12:00 AM CDT HEPATITIS C SCREEN REFLEX TO HCV RNA QUANT AND GENOTYPE Routine 12/03/2022 8:43 AM CDT LFT elevation HIV ANTIGEN ANTIBODY COMBO Routine 08/12/2019 7:06 AM PULMONARY NURSE PRACTITIONER Encounter for preventive health examination from Last 3 Months or Most Recently Relevant to Health Maintenance Results * Testosterone Free and Total (11/23/2024 [...] and its performance characteristics determined by the [facility], Special Chemistry Laboratory. It has not been cleared or approved by the FDA. The laboratory is regulated under CLIA as qualified to perform high-complexity testing. This test is used for clinical purposes. It should not be regarded as investigational or for research. Christen Gallardo MD LAB - BLOOD ORDERABLES Final Re sult [facility]UG/[facility] Special Drug/BGEN [address] [facility], [address] * Sex Hormone Binding Globulin (11/23/2024 9:45 AM CDT) [facility] Sex Hormone Binding Globulin 30 11 - 80 nmol/L 11/23/2024 3:07 PM CDT LABORATORY Blood BLOOD SPECIMEN / Unknown Venipuncture / Unknown 11/23/2024 9:45 AM CDT 11/23/2024 9:45 AM CDT Christen Gallardo MD LAB - BLOOD ORDERABLES Final Re sult LABORATORY [facility] [address] [facility], [address] * (ABNORMAL) Vitamin D Deficiency (11/23/2024 9:45 AM CDT) Vitamin D, Total (25-Hydroxy) 63(H) 20 - 50 ng/mL 11/23/2024 3:46 PM CDT U LABORATORY Comment:indicates supplement ation, with increased risk of hypercalciuria Blood BLOOD SPECIMEN / Unknown Venipuncture / Unknown 11/23/2024 9:45 AM CDT 11/23/2024 9:45 AM CDT [facility] LABORATORY - 11/23/2024 3:46 PM CDT Season, race, dietary intake, and treatment affect the concentration of 68-nttfgld-Tbmsbam D. Values may decrease during winter months and increase during summer months. Vitamin D determination is routinely performed by an immunoassay specific for 25 hydroxyvitamin D3. If an individual is on vitamin D2(ergocalciferol) supplementation, please specify 25 [place] vitamin D2 and D3 level determination by LCMSMS test VITD23. Tatyana Dwyer MD LAB - BLOOD ORD ERABLES Final Result U LABORATORY [facility] [address] [facility], [address] [place] [address] * Vitamin B6 (11/23/2024 9:45 AM CDT) Pathologist [facility] Vitamin B6 103.7 20.0 - 125.0 nmol/L 11/25/2024 10:30 AM CDT [email or web address] Comment: INTERPRETIVE INFORMATION: Vitamin B6 (Pyridoxal 5-Phosphate) Pyridoxal 5'-phosphate measured in a specimen collected following an 8-hour or overnight fast accurately indicates vitamin B6 nutritional status. Non-fasting specimen concentration reflects recent vitamin intake. This test was developed and its performance characteristics determined by [facility]. It has not been cleared or approved by the [place] Food and Drug Administration. This test was performed in a CLIA certified laboratory and is intended for clinical purposes. Performed By: [facility] [address] [place] [address] Infant Room Teacher: Sebastian Barrera MD, PhD CLIA Number: [id number] Blood BLOOD SPECIMEN / Unknown Venipuncture / Unknown 11/23/2024 9:45 AM CDT 11/23/2024 9:45 AM CDT Tatyana Dwyer MD LAB - BLOOD ORD ERABLES Final Result Performing Organization Address [facility] Co de Phone Number [address] [address], [facility] [phone] * Vitamin B1 whole blood (11/23/2024 9:45 AM CDT) [facility] Vitamin B1 Whole Blood Level 136 70 - 180 nmol/L 11/26/2024 7:13 PM CDT [facility] Comment: INTERPRETIVE INFORMATION: Vitamin B1, Whole Blood This assay measures the concentration of thiamine diphosphate (TDP), the primary active form of vitamin B1. Approximately 90 percent of vitamin B1 present in whole blood is TDP. Thiamine and thiamine monophosphate, which comprise the remaining 10 percent, are not measured. This test was developed and its performance characteristics determined by [facility]. It has not been cleared or approved by the US Food and Drug Administration. This test was performed in a CLIA certified laboratory and is intended for clinical purposes. Performed By: [facility] [address] [place] [address] Infant Room Teacher: Sebastian Barrera MD, PhD CLIA Number: [id number] Blood BLOOD SPECIMEN / Unknown Venipuncture / Unknown 11/23/2024 9:45 AM CDT 11/23/2024 9:45 AM CDT Tatyana Dwyer MD LAB - BLOOD ORD ERABLES Final Result [address] [address], [facility] [phone] * TSH with free T4 reflex (11/23/2024 9:45 AM CDT) [facility] TSH 1.08 0.30 - 4.20 uIU/mL 11/23/2024 3:46 PM CDT [facility] LABORATORY Blood BLOOD SPECIMEN / Unknown Venipuncture / Unknown 11/23/2024 9:45 AM CDT 11/23/2024 9:45 AM CDT us Tatyana Dwyer MD LAB - BLOOD ORD ERABLES Final Result LABORATORY [facility] [address] [facility], [address] [place] [address] * PSA, screen (11/23/2024 9:45 AM CDT) [facility] Prostate Specific Antigen Screen 1.05 ng/mL 11/23/2024 3:09 PM CDT U LABORATORY Comment:No reference ranges have been established for patients under 40 years. Blood BLOOD SPECIMEN / Unknown Venipuncture / Unknown 11/23/2024 9:45 AM CDT 11/23/2024 9:45 AM CDT Narrative LABORATORY - 11/23/2024 3:09 PM CDT This [...] is needed to diagnose prostate pathology. The [employer] recommends annual examination with digital [...] ORDERABLES Final Re sult LABORATORY [facility] [address] [facility], [address] [place] [address], [facility] * (ABNORMAL) Lipid panel reflex to direct [...] BLOOD ORD ERABLES Final Result [facility] LABORATORY [facility] [address] [facility] [address], [address] [place] [address] * Folate (11/23/2024 9:45 AM CDT) Folic Acid 16.4 4.6 - 34.8 ng/mL 11/23/2024 10:30 PM CDT [facility] LABORATORY Blood BLOOD SPECIMEN / Unknown Venipuncture / Unknown 11/23/2024 9:45 AM CDT 11/23/2024 9:45 AM CDT Tatyana Dwyer MD LAB - BLOOD ORD ERABLES Final Result [facility] LABORATORY [facility] [address] [facility], [address] [place] [address] * (ABNORMAL) Comprehensive metabolic panel (11/23/2024 9:45 AM CDT) Sodium 137 135 - 145 mmol/L 11/23/2024 [...] 3:09 PM CDT [facility] LABORATORY Comment:eGFR calculated us2020 CKD-EPI equation. Calcium 9.2 8.8 - 10.4 [...] LAB - BLOOD ORDERABLES Final Re sult Performing Organization Address City/[facility]/ZIP Co de Phone Number U LABORATORY [facility] [address] [facility], [address] * Vitamin B12 (11/23/2024 9:45 AM CDT) Vitamin B12 533 232 - 1,245 pg/mL 11/23/2024 3:46 PM CDT [facility] LABORATORY Blood BLOOD SPECIMEN / Unknown Venipuncture / Unknown 11/23/2024 9:45 AM CDT 11/23/2024 9:45 AM CDT Tatyana Dwyer MD LAB - BLOOD ORD ERABLES Final Result U LABORATORY [facility] [address] [facility], [address] * CBC with platelets (11/23/2024 9:45 AM [...] BLOOD ORDERABLES Final Re sult [facility] LABORATORY [facility] [address] [facility] (no room number, 1st floor of clinic) [place] [address] * MR Brain w/o & w Contrast [...] MR BRAIN W/O and W CONTRAST LOCATION: [facility] DATE: 10/19/2024 INDICATION: Pituitary adenoma COMPARISON: Pituitary protocol brain MRI: 10/22/2022. CONTRAST: 14mL [employer] TECHNIQUE: Multiplanar multisequence head MRI without and with intravenous contrast including dedicated imaging of the sella. FINDINGS: SELLA: Tiny area of heterogenous, predominantly hypoenhancing signal along the posterior aspect of the pituitary gland is slightly decreased in size/conspicuity from study performed in October 2022 (series [id number]/image 8 and series [id number]/image 8). No mass effect. Normal pituitary stalk [...] MR BRAIN W/O and W CONTRAST LOCATION: [facility] DATE: 10/19/2024 INDICATION: Pituitary adenoma COMPARISON: Pituitary protocol brain MRI: 10/22/2022. CONTRAST: 14mL [employer] TECHNIQUE: Multiplanar multisequence head MRI without and with intravenouscontrast including dedicated imaging of the sella. FINDINGS: SELLA: Tiny area of heterogenous, predominantly hypoenhancing signal alongthe posterior aspect of the pituitary gland is slightly decreased insize/conspicuity from study performed in October 2022 (series [id number]/image 8and series [id number]/image 8). No mass effect. Normal pituitary stalk [...] No acute intracranial abnormality. Christen Gallardo MD [facility] MRI ORDERABLES Final Result * Colonoscopy - HIM Scan (10/09/2023 12:00 [...] been established for newborns, infants, and children. Tatyana Dwyer MD LAB - BLOOD ORD ERABLES Final Result SPECIALTY CORE/PROT/ENDO Specialty Core/Prot/Endo [address] [facility], [address] [phone] * HIV Antigen Antibody Combo [[id number]] (08/12/2019 7:06 AM PULMONARY NURSE PRACTITIONER) HIV Antigen Antibody Combo Nonreactive NR^Nonrea ctive 08/12/2019 2:49 [address] [facility] Comment:HIV-1 p24 Ag & HIV-1 /HIV-2 Ab Not Detected Blood specimen (specimen) 08/12/2019 7:06 AM PULMONARY NURSE PRACTITIONER 08/12/2019 7:08 AM PULMONARY NURSE PRACTITIONER Hill Spears MD LAB - BLOOD ORDERABLES Final Result [facility] [address] [place] [address] from Last 3 Months or Most Recently Relevant to Health Maintenance Insurance [facility] COMM[facility]CIAL [facility] COMM[facility] Care Teams Glass Inspector Relationship Specialty Start Date End Date Tatyana Dwyer MD [address] [place] [address] PCP - General Internal Medicine 06/01/19 Annalee Toussaint PA-C [address] [place] [address] [place] [address] Physician Cigar Brander Physician Cigar Brander - Medical 07/15/19 Cr Fung MD [address] [place] [address] Urology 07/15/19 Bianca Rubalcava, RN Specialty Surgeon/President Urology 07/15/19 Wm Ryan MD [address] [place] [address] Resident Student in organized health care education/training program 02/01/21 Tatyana Dwyer MD [address] [place] [address] Assigned PCP 02/05/21 Christen Gallardo MD [address] [place] [address] Assigned Endocrinology Provider 11/18/21 Ana Fink MD [address] [place] [address] Fellow Gastroenterology 10/16/22
--- OUTSIDE RECORDS SUMMARY | 2024-12-25 13:39 | XMS_ITS | Encounter Summary ---
Author Organization [place] Address [address] [place] [address] Care Team Providers Care Set Up / Operator Name Role Phone Tatyana Dwyer MD Primary Care P rolorettader Tatyana Dwyer MD Unavailable Annalee Toussaint-C Unavailable Cr Fung MD Unavailable Bianca Rubalcava RN Unavailable [phone] Keegan Montemayor MD Unavailable Un available Joselin Andrade PA-C Unavailable Steven Tatum MD Unavailable Jim Mark MD Unavailable [phone] Jaime Wood MD Unavailable [phone] Annalee Toussaint-C Unavailable [phone] Honey Jackson APRN, CNP Unavailable + [phone] Wm Ryan MD Unavailable Tatyana Dwyer MD Unavailable Amalia Agosto GC Unavailable [phone] Jaime Wood MD Unavailable [phone] Christen Gallardo MD Unavailable [phone] Ana Fink MD Unavailable Encounter Details Date Type Department Care Team (Late st Contact Info) Description 06/25/2019 MyC Medical Advice [facility] [address] [facility] [address] [place] [phone] Keegan Montemayor MD Social History Tobacco Use [...] PM CDT 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 [address] [place] [address] Tatyana Dwyer MD [address] [place], [place] 849387 documented as of this encounter Visit Diagnoses Not on filedocumented in this encounter Additional Health Concerns Infection Onset Date Last Indicated Resolved Time Rule Out COVID-19 10/25/2021 10/25/2021 10/26/2021 12:43 PM CDT COVID-19 10/25/2021 10/25/2021 11/15/2021 11:3 9 PM CDT documented as of this encounter Care Teams Set Up / Operator Relationship Specialty Start Date End Date Tatyana Dwyer MD [address] [place] [address] PCP - General Internal Medicine 06/01/19 Tatyana Dwyer MD [address] [place] [address] Assigned PCP 05/31/19 10/15/20 Annalee Toussaint PA-C [address] [address] Physician Adolescent Coordinator Physician Adolescent Coordinator - Medical 07/15/19 Cr Fung MD 420 [facility] 394 [place] [address] Urology 07/15/19 Bianca Rubalcava, RN Specialty Borematic Operator Urology 07/15/19 Keegan oMntemayor MD Assigned Heart and Vascular Provider 04/08/20 12/27/20 Joselin Andrade PA-C [address] [place] [address] Assigned Pediatric Specialist Provider 04/08/20 07/17/20 [place] [address] [address] [place] [address] Assigned Surgical Provider 04/08/20 07/22/21 Jim Mark MD [address] [place] [address] Assigned Musculoskeletal Provider 04/08/20 02/11/21 Jaime Wood MD [address] [place] [address] Assigned Sleep Provider 04/08/2004/08 Annalee Toussaint PA-C [address] [place], [place] 364405 Assigned OBGYN Provider 08/31/20 1 Honey Jackson APRN CNP [address] [place], [place] 839447 Assigned PCP 10/16/20 02/04/21 Wm Ryan MD [address] [place], [place] 789345 Resident Student in organized health care education/training program 02/01/21 Tatyana Dwyer MD [address] [place], [place] 064517 Assigned PCP 02/05/21 Amalia Agosto GC [address]50 [place] [address] Assigned OBGYN Provider 05/07/21 07/15/21 Jaime [place] MD [address] [place] [address] Assigned Sleep Provider 07/09/21 Christen Gallardo MD [address] [address] Assigned Endocrinology Provider 11/18/21 Ana Fink MD [address] [place] [address] Fellow Gastroenterology 10/16/22 documented as of this encounter
--- OUTSIDE RECORDS SUMMARY | 2024-12-25 13:39 | XMS_ITS | Clinical Summary ---
Author Organization [facility] Address [address], [place] [address] Care Team Providers Care Tug Boat Captain Name Role Phone Michelet Velasco MD Primary [...] for each transition of care or referral. [facility] Allergies No known active allergies Medications hydroCHLOROthiazi [...] (7.5 mg) subcutaneously once every week. Active methocarbamol (ROBAXIN) 500 MG tabletIndications :Left [...] Encounters Date Type Department Care Team Description 11/18/2024 Telephone [facility] [address] [place], [place] 7[address] Delmar Escudero, RN Post Visit Follow Up Phone Call 11/17/2024 8:30 AM CDT Procedure Visit [facility] [address] [place] [address] Robson Irvin DO 1, Tri[place] Rad Jacoby Stephens, Procedure 11/13/2024 Telephone [facility] [address] [place] [address] Judith Thompson RN Pre-procedure Call 11/12/2024 10:30 AM CDT Office Visit Physical Therapy at [facility] [address] [address] Leighann Pemberton, PT Acute left-sided low back pain, unspecified whether sciatica present (Primary Dx) 11/12/2024 8:50 AM CDT Office Visit [facility] Orthopedic Urgent [address] [address] Robson Irvin DO Left lumbar radiculopathy (Primary [...] 16 11/17/2024 9:34 AM CDT Oxygen Saturation 99% 07/16/2024 9:33 AM EXPLORATION MANAGER Inhaled Oxygen Concentration - - Weight 132 kg (291 lb) 11/12/2024 9:05 AM CDT Height 182.9 cm (6') 11/12/2024 9:05 AM CDT Body Mass Index 39.47 11/12/2024 9:05 AM CDT Plan of Treatment Health Maintenance Due Date Last Done Comments Hep C Screening (Preventive Services) 1985 HIV Screening (Preventive Services) 2001 Adult Preventive Visit 08/31/2003 HepB Vaccine (1) 2004 Cholesterol 2020 Influenza Vaccine (#1) 2025 , 02/23/2023, 02/16/2023, Additional history exists Diabetes Screening- (based on age and BMI) 11/20/2026 11/21/2023, 04/02/2023 DTaP/Tdap/Td Vaccine (3 - Tdap) 11/26/2031 11/25/2021, 09/27/2010 Zoster/Shingles Vaccine (1 of 2) 08/31/2035 MCV4 Vaccine Aged Out 07/06/2003 No longer eligi ble based on patient's age to complete this topic COVID-19 Vaccine Completed 06/20/2024, , 03/30/2022, Additional [...] 11/17/2024 8:34 AM CDT Left lumbar radiculopathy from Last 3 Months Results * FL C Arm 20 Pain Management (11/17/2024 8:34 AM CDT) Anatomical Region Laterality Modality Radiographic Bonita ging Narrative 11/17/2024 9:18 AM CDT These images were obtained during a surgical procedure. us Robson SHRESTHA [place] Final Result from Last 3 Months Insurance [facility] [place] [address] [facility] Care Teams Tug Boat Captain Relationship Specialty Start Date End Date Michelet Velasco MD [address] [place] [address] PCP - General 10/20/13
--- OUTSIDE RECORDS SUMMARY | 2024-12-25 13:39 | XMS_ITS | Encounter Summary ---
Author Organization [place] Address [facility] [place] [address] Care Team Providers Care Retort Forker Name Role Phone Tatyana Dwyer MD Primary Care P rovider Annalee Toussaint PA-C Unavailable [phone] Cr Fung MD Unavailable Bianca Rubalcava RN Unavailable [phone] Wm Ryan MD Unavailable Tatyana Dwyer MD Unavailable Christen Gallardo MD Unavailable [phone] Ana Fink MD Unavailable Encounter Details Date Type Department Care Team (Late st Contact Info) Description 03/06/2024 MyC Medical Advice [facility] [address] [place] [address] Christen Gallardo MD [address] [place], [place] 2[address] Social History Tobacco Use Types Packs/Day Years [...] re latives? 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 Gender Identity Male 12/19/2020 9:52 PM CDT Sexual Orientation Straight 12/19/2020 9: 52 PM CDT documented as of this encounter Plan of Treatment Upcoming Encounters Date Type Department Care Team (Late st Contact Info) Description 02/10/2025 11:30 AM CDT Office Visit [address] [phone] Christen Gallardo MD [address] [place] [address] 11/22/2025 10:00 AM CDT Office Visit [facility] [address] [place] [address] Tatyana Dwyer MD [address] [place], [place] [address] documented as of this encounter Visit Diagnoses Not on filedocumented in this encounter Care Teams Retort Forker Relationship Specialty Start Date End Date Tatyana Dwyer MD [address] [place] [address] PCP - General Internal Medicine 06/01/19 Annalee Toussaint PA-C [address] [place] [address] [place] [address] Physician Cash Processor Physician Cash Processor - Medical 07/15/19 Cr Fung MD [address] [place] [address] 868[address] Urology 07/15/19 Bianca Rubalcava, RODNEY Specialty Seismic Prospecting Observer Urology 07/15/19 Wm Ryan MD [address] [place] [address] 144145 Resident Student in organized health care education/training program 02/01/21 Tatyana Dwyer MD [address] [place] [address] Assigned PCP 02/05/21 Christen Gallardo MD [address] [place] [place] 826245 Assigned Endocrinology Provider 11/18/21 Ana Fink MD [address] [place] [address] 625795 Fellow Gastroenterology 10/16/22 documented as of this encounter
--- OUTSIDE RECORDS SUMMARY | 2024-12-25 13:39 | XMS_ITS | Encounter Summary ---
Author Organization [place] Address [facility] [place] [address] Care Team Providers Care Clay Structure Builder And Servicer Name Role Phone Tatyana Dwyer MD Primary Care P rovider Annalee Toussaint PA-C Unavailable Cr Fung MD Unavailable Bianca Rubalcava RN Unavailable [phone] Wm Ryan MD Unavailable Tatyana Dwyer MD Unavailable Christen Gallardo MD Unavailable [phone] Ana Fink MD Unavailable Encounter Details Date Type Department Care Team (Late st Contact Info) Description 11/29/2023 MyC Medical Advice [facility] [address] [place] [address] Christen Gallardo MD [address] [place], [place] [address] Social History Tobacco Use Types Packs/Day Years [...] re latives? 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 Gender Identity Male 12/19/2020 9:52 PM CDT Sexual Orientation Straight 12/19/2020 9: 52 PM CDT documented as of this encounter Plan of Treatment Upcoming Encounters Date Type Department Care Team (Late st Contact Info) Description 02/10/2025 11:30 AM CDT Office Visit [address] [phone] Christen Gallardo MD 6[address] [place] [address] 11/22/2025 10:00 AM CDT Office Visit [facility] [address] [place] [address] Tatyana Dwyer MD [address] [place], [place] [address] documented as of this encounter Visit Diagnoses Not on filedocumented in this encounter Care Teams Clay Structure Builder And Servicer Relationship Specialty Start Date End Date Tatyana Dwyer MD [address] [place] [address] PCP - General Internal Medicine 06/01/19 Annalee Toussaint PA-C [address] [place] [address] [place] [address] Physician Beauty Advisor Physician Beauty Advisor - Medical 07/15/19 Cr Fung MD [address] [place] [address] 599775 Urology 07/15/19 Bianca Rubalcava, RODNEY Specialty Corn Cutter Operator Urology 07/15/19 Wm Ryan MD [address] [place] [address] 240355 Resident Student in organized health care education/training program 02/01/21 Tatyana Dwyer MD [address] [place] [address] Assigned PCP 02/05/21 Christen Gallardo MD [address] [place] 608045 Assigned Endocrinology Provider 11/18/21 Ana Fink MD [address] [place] [address] 598395 Fellow Gastroenterology 10/16/22 documented as of this encounter
--- OUTSIDE RECORDS SUMMARY | 2024-12-25 13:39 | XMS_ITS | Encounter Summary ---
Author Organization [place] Address [facility] [place] [address] Care Team Providers Care Electrical Accessories Assembler Name Role Phone Tatyana Dwyer MD Primary Care P rolorettader Annalee Toussaint PA-C Unavailable Cr Fung MD Unavailable [phone] Bianca Rubalcava RN Unavailable [phone] Wm Ryan MD Unavailable [phone] Tatyana Dwyer MD Unavailable Jaime Wood MD Unavailable Christen Gallardo MD Unavailable [phone] Ana Fink MD Unavailable Reason for Visit * Reason Onset Date Comments Refill Request 11/06/2022 lisinopril (ZESTRIL) 20 MG tablet 11/06/2022 Encounter Details Date Type Department Care Team (Late st Contact Info) Description 11/06/2022 Refill [facility] [address] [place] [address] Tatyana Dwyer MD [address] [place] [address] Refill Request; lisinopril (ZESTRIL) 20 [...] PM CDT 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 Due around 06/21/23 for next office visit documented in this encounter Plan of Treatment Upcoming Encounters Date Type Department Care Team (Late st Contact Info) Description 02/10/2025 11:30 AM CDT Office Visit [address] [place] [address] Christen Gallardo MD [address] [address] 11/22/2025 10:00 AM CDT Office Visit [place] [address] [place] [address] Tatyana Dwyer MD [address] [place], [place] [address] documented as of this encounter Visit Diagnoses Diagnosis HTN, goal below 140/90 Unspecified essential hypertension documented in this encounter Care Teams Electrical Accessories Assembler Relationship Specialty Start Date End Date Tatyana Dwyer MD [address] [place], [place] 812[address] PCP - General Internal Medicine 06/01/19 Annalee Toussaint PA-C [address] [place], [place] [address] Physician Filler Sifter Machine Physician Filler Sifter Machine - Medical 07/15/19 Cr Fung MD 420 [facility] 394 [place], [place] [address] Urology 07/15/19 Bianca Rubalcava, RN Specialty Applied Biology Professor Urology 07/15/19 Wm Ryan MD 420 [place], [place] 407[address] Resident Student in organized health care education/training program 02/01/21 Tatyana Dwyer MD [address] [place], [place] 693[address] Assigned PCP 02/05/21 Jaime Wood MD [address] [place] [address] Assigned Sleep Provider 07/09/21 01/04/23 Christen Gallardo MD [address] [place] [address] Assigned Endocrinology Provider 11/18/21 Ana Fink MD [address] [place] [address] Fellow Gastroenterology 10/16/22 documented as of this encounter
--- OUTSIDE RECORDS SUMMARY | 2024-12-25 13:39 | XMS_ITS | Encounter Summary ---
Author Organization [place] Address [address] [place] [address] Care Team Providers Care Terrazzo Grinder Name Role Phone Tatyana Dwyer MD Primary Care P rolorettader Tatyana Dwyer MD Unavailable Annalee Toussaint-C Unavailable [phone] Cr Fung MD Unavailable [phone] Bianca Rubalcava RN Unavailable [phone] Keegan Montemayor MD Unavailable Un available Joselin Andrade PA-C Unavailable Steven Tatum MD Unavailable Jim Mark MD Unavailable [phone] Jaime Wood MD Unavailable [phone] Annalee Toussaint-C Unavailable [phone] Honey Jackson APRN, CNP Unavailable + [phone] Wm Ryan MD Unavailable Tatyana Dwyer MD Unavailable Amalia Agosto GC Unavailable [phone] Jaime Wood MD Unavailable [phone] Christen Gallardo MD Unavailable [phone] Ana Fink MD Unavailable Encounter Details Date Type Department Care Team (Late st Contact Info) Description 09/04/2019 MyC Medical Advice [facility] Heart [facility] [address] [facility] 140 [place] [phone] Lorrie Ray RN Social History Tobacco Use [...] PM CDT 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 Gender Identity Male 12/19/2020 9:52 PM CDT Sexual Orientation Straight 12/19/2020 9: 52 PM CDT documented as of this encounter Plan of Treatment Upcoming Encounters Date Type Department Care Team (Late st Contact Info) Description 02/10/2025 11:30 AM CDT Office Visit [address] [place] [address] Christen Gallardo MD [address] [place] [address] 11/22/2025 10:00 AM CDT Office Visit [facility] [address] [place] [phone] Tatyana Dwyer MD [address] [place], [place] [address] documented as of this encounter Visit Diagnoses Not on filedocumented in this encounter Additional Health Concerns Infection Onset Date Last Indicated Resolved Time Rule Out COVID-19 10/25/2021 10/25/2021 10/26/2021 12:43 PM CDT COVID-19 10/25/2021 10/25/2021 11/15/2021 11:3 9 PM CDT documented as of this encounter Care Teams Terrazzo Grinder Relationship Specialty Start Date End Date Tatyana Dwyer MD [address] [place] [address] PCP - General Internal Medicine 06/01/19 Taytana Dwyer MD [address] [place] [address] Assigned PCP 05/31/19 10/15/20 Annalee Toussaint PA-C [address] [address] Physician Market Relationship Manager Physician Market Relationship Manager - Medical 07/15/19 Cr Fung MD 420 [facility] 394 [place] [address] Urology 07/15/19 Bianca Rubalcava, RN Specialty Small Wind Energy Installer Urology 07/15/19 Keegan Montemayor MD Assigned Heart and Vascular Provider 04/08/20 12/27/20 Joselin Andrade PA-C [address] [place] [address] Assigned Pediatric Specialist Provider 04/08/20 07/17/20 [place] [address] [place] [address] Assigned Surgical Provider 04/08/20 07/22/21 Jim Mark MD [address] [place] [address] Assigned Musculoskeletal Provider 04/08/20 02/11/21 Jaime [place] MD [address] [place] [address] Assigned Sleep Provider 04/08/2004/08 Annalee Toussaint PA-C [address] [place], [place] [address] Assigned OBGYN Provider 08/31/20 1 Honey Jackson APRN [facility] [address] [place], [place] [address] Assigned PCP 10/16/20 02/04/21 Wm Ryan MD [address] [place] [address] Resident Student in organized health care education/training program 02/01/21 Tatyana Dwyer MD [address] [place], [place] 715667 Assigned PCP 02/05/21 Amalia Agosto GC [address] [place] [address] Assigned OBGYN Provider 05/07/21 07/15/21 Jaime [place] MD [address] [place] [address] Assigned Sleep Provider 07/09/21 Christen Gallardo MD [address] [address] Assigned Endocrinology Provider 11/18/21 Ana Fink MD [address] [place] [address] Fellow Gastroenterology 10/16/22 documented as of this encounter
--- OUTSIDE RECORDS SUMMARY | 2024-12-25 13:39 | XMS_ITS | Encounter Summary ---
Author Organization [place] Address formerly [facility] [place] [address] Care Team Providers Care Prospect Manager Name Role Phone Tatyana Dwyer MD Primary Care P rovider Annalee Toussaint PA-C Unavailable Cr Fung MD Unavailable Bianca Rubalcava RN Unavailable [phone] Wm Ryan MD Unavailable Tatyana Dwyer MD Unavailable Christen Gallardo MD Unavailable [phone] Ana Fink MD Unavailable Encounter Details Date Type Department Care Team (Late st Contact Info) Description 01/08/2023 [facility] [place] [address] [place] [address] Christen Gallardo MD [address] [place], [place] [address] Social History Tobacco Use Types Packs/Day Years [...] PM CDT 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 Gender Identity Male 12/19/2020 9:52 PM [...] Description 02/10/2025 11:30 AM CDT Office Visit [address] [phone] Christen Gallardo MD [address]00 [place] [address] 11/22/2025 10:00 AM CDT Office Visit [address] [place] [phone] Tatyana Dwyer MD [address] [place], [place] [address] documented as of this encounter Visit Diagnoses Not on filedocumented in this encounter Care Teams Prospect Manager Relationship Specialty Start Date End Date Tatyana Dwyer MD [address] [place] [address] PCP - General Internal Medicine 06/01/19 Annalee Toussaint PA-C [address] [place] [address] [place] [address] Physician Security Ambassador Physician Security Ambassador - Medical 07/15/19 Cr Fung MD [address] [place] [address]40215 Urology 07/15/19 Bianca Rubalcava, RODNEY Specialty Trailer Assembler Urology 07/15/19 Wm Ryan MD [address] [place] [address] 775235 Resident Student in organized health care education/training program 02/01/21 Tatyana Dwyer MD [address] [place] [address] Assigned PCP 02/05/21 Christen Gallardo MD [address] [place] [address]35 Assigned Endocrinology Provider 11/18/21 Ana Fink MD [address] [place] [address]605 Fellow Gastroenterology 10/16/22 documented as of this encounter
--- OUTSIDE RECORDS SUMMARY | 2024-12-25 13:39 | XMS_ITS | Encounter Summary ---
Author Organization [facility] Address [address] [place] [address] Care Team Providers Care Nutrition Representative Name Role Phone Tatyana Dwyer MD Primary Care P rolorettader Tatyana Dwyer MD Unavailable Annalee Toussaint-C Unavailable Cr Fung MD Unavailable Bianca Rubalcava RN Unavailable [phone] Keegan Montemayor MD Unavailable Un available Joselin Andrade PA-C Unavailable Steven Tatum MD Unavailable Jim Mark MD Unavailable [phone] Jaime [place] MD Unavailable [phone] Annalee Toussaint-C Unavailable [phone] Honey Jackson APRN, CNP Unavailable + [phone] Wm Ryan MD Unavailable Tatyana Dwyer MD Unavailable Amalia Agosto GC Unavailable [phone] Jaime [place] MD Unavailable [phone] Christen Gallardo MD Unavailable [phone] Ana Fink MD Unavailable Encounter Details Date Type Department Care Team (Late st Contact Info) Description 10/02/2019 MyC Medical Advice [address] [phone] Rachel Solares Social History Tobacco Use Types [...] PM CDT 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 Gender Identity Male 12/19/2020 9:52 PM CDT Sexual Orientation Straight 12/19/2020 9: 52 PM CDT documented as of this encounter Plan of Treatment Upcoming Encounters Date Type Department Care Team (Late st Contact Info) Description 02/10/2025 11:30 AM CDT Office Visit [address] [phone] Christen Gallardo MD [address] [place] [address] 11/22/2025 10:00 AM CDT Office Visit [address] [place] [address] [place] [phone] Tatyana Dwyer MD [address] [place], [place] [phone] documented as of this encounter Visit Diagnoses Not on filedocumented in this encounter Additional Health Concerns Infection Onset Date Last Indicated Resolved Time Rule Out COVID-19 10/25/2021 10/25/2021 10/26/2021 12:43 PM CDT COVID-19 10/25/2021 10/25/2021 11/15/2021 11:3 9 PM CDT documented as of this encounter Care Teams Nutrition Representative Relationship Specialty Start Date End Date Tatyana Dwyer MD [address] [place] [address] PCP - General Internal Medicine 06/01/19 Tatyana Dwyer MD [address] [place] [address] Assigned PCP 05/31/19 10/15/20 Annalee Toussaint PA-C [address] [address] Physician Waredresser Physician Waredresser - Medical 07/15/19 Cr Fung MD 420 [facility] 394 [place] [address] Urology 07/15/19 Bianca Rubalcava, RODNEY Specialty Associate Professor Of Engineering Urology 07/15/19 Keegan Montemayor MD Assigned Heart and Vascular Provider 04/08/20 12/27/20 Joselin Andrade PA-C [address] [place] [address] Assigned Pediatric Specialist Provider 04/08/20 07/17/20 [place] [address] [place] [address] Assigned Surgical Provider 04/08/20 07/22/21 Jim Mark MD [address] [place] [address] Assigned Musculoskeletal Provider 04/08/20 02/11/21 Jaime [place] MD [address] [facility] [address] [place] [address] Assigned Sleep Provider 04/08/2004/08 Annalee Toussaint PA-C [address] [place], [place] [address]055 Assigned OBGYN Provider 08/31/20 1 Honey Jackson APRN CNP [address] [place], [place] 337287 Assigned PCP 10/16/20 02/04/21 Wm Ryan MD 420 [place], [place] 007855 Resident Student in organized health care education/training program 02/01/21 Tatyana Dwyer MD [address] [place], [place] 535657 Assigned PCP 02/05/21 Amalia Agosto GC 2450 [place] [address] Assigned OBGYN Provider 05/07/21 07/15/21 Jaime [place] MD [address] [place] [address] Assigned Sleep Provider 07/09/21 Christen Gallardo MD [address] [place] [address] Assigned Endocrinology Provider 11/18/21 Ana Fink MD [address] [place] [address] Fellow Gastroenterology 10/16/22 documented as of this encounter
--- OUTSIDE RECORDS SUMMARY | 2024-12-25 13:39 | XMS_ITS | Encounter Summary ---
Author Organization [facility] Address [facility]0 [facility] [place] [address] Care Team Providers Care Director Of Software Engineering Name Role Phone Tatyana Dwyer MD Primary Care P rovider Annalee Toussaint-C Unavailable [phone] Cr Fung MD Unavailable [phone] Bianca Rubalcava RN Unavailable [phone] Steven Tatum MD Unavailable Wm Ryan MD Unavailable [phone] Tatyana Dwyer MD Unavailable Amalia Agosto GC Unavailable [phone] Jaime [place] MD Unavailable [phone] Christen Gallardo MD Unavailable [phone] Ana Fink MD Unavailable Encounter Details Date Type Department Care Team (Late st Contact Info) Description 07/03/2021 [facility] [place] 9225 [facility] 103 [place] [address] Jaime [place] MD 9619 [facility] 103 [place] [address] Social History Tobacco Use Types [...] PM CDT 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 Gender Identity Male 12/19/2020 9:52 PM CDT Sexual Orientation Straight 12/19/2020 9: 52 PM CDT documented as of this encounter Plan of Treatment Upcoming Encounters Date Type Department Care Team (Late st Contact Info) Description 02/10/2025 11:30 AM CDT Office Visit [address] [phone] Christen Gallardo MD 6407 [place] [address] 11/22/2025 10:00 AM CDT Office Visit [address] 200 [place] [phone] Tatyana Dwyer MD [address] [place], [place] 881427 documented as of this encounter Visit Diagnoses Not on filedocumented in this encounter Additional Health Concerns Infection Onset Date Last Indicated Resolved Time Rule Out COVID-19 10/25/2021 10/25/2021 10/26/2021 12:43 PM CDT COVID-19 10/25/2021 10/25/2021 11/15/2021 11:3 9 PM CDT documented as of this encounter Care Teams Director Of Software Engineering Relationship Specialty Start Date End Date Tatyana Dwyer MD [address] [place] [address] PCP - General Internal Medicine 06/01/19 Annalee Toussaint PA-C 6363 [facility] 500 [place], [place] 744935 Physician Radio Broadcaster Physician Radio Broadcaster - Medical 07/15/19 Cr Fung MD [address] [id number] Urology 07/15/19 Bianca Rubalcava, RODNEY Specialty Railroad Wheels And Axles Inspector Urology 07/15/19 [place] [address] [place] [address] 591579 Assigned Surgical Provider 04/08/20 07/22/21 Wm Ryan MD [address] [place] [address] Resident Student in organized health care education/training program 02/01/21 Tatyana Dwyer MD [address] [place] [address] Assigned PCP 02/05/21 Amalia Agosto GC 2450 [place], [place] 334654 Assigned OBGYN Provider 05/07/21 07/15/21 Jaime [place] MD [address] [facility] [address] [facility] 103 [place], [place] [address]155 Assigned Sleep Provider 07/09/21 01/04/23 Christen Gallardo MD [address] [place] [address] Assigned Endocrinology Provider 11/18/21 Ana Fink MD [address] [place] [address] 472595 Fellow Gastroenterology 10/16/22 documented as of this encounter
--- OUTSIDE RECORDS SUMMARY | 2024-12-25 13:39 | XMS_ITS | Encounter Summary ---
Author Organization [facility] Address [address] [place] [address]. 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 [address] [place] [phone] Tatyana Dwyer MD [address] [place] [address] documented as of this encounter Visit Diagnoses Not on filedocumented in this encounter Additional Health Concerns Infection Onset Date Last Indicated Resolved Time Rule Out COVID-19 10/25/2021 10/25/2021 10/26/2021 12:43 PM CDT COVID-19 10/25/2021 10/25/2021 11/15/2021 11:3 9 PM CDT documented as of this encounter Care Teams Assembler Knife Relationship Specialty Start Date End Date Tatyana Dwyer MD [address] [place], [place] 526467 PCP - General Internal Medicine 06/01/19 Annalee Toussaint PA-C [address] [facility] [address] [place], [place] 473195 Physician Milliner Helper Physician Milliner Helper - Medical 07/15/19 Cr Fung MD [address] [place] [address] 394 [place], [place] 632915 Urology 07/15/19 Bianca Rubalcava, RODNEY Specialty Editorial Intern Urology 07/15/19 [place] [address] [place] [address] 991729 Assigned Surgical Provider 04/08/20 07/22/21 Wm Ryan MD [address] [place] [address] Resident Student in organized health care education/training program 02/01/21 Tatyana Dwyer MD [address] [place], [place] 432927 Assigned PCP 02/05/21 Amalia Agosto GC 2450 [place] [address] Assigned OBGYN Provider 05/07/21 07/15/21 Jaime [place] MD [address] [facility] 103 [place] 0[address]655 Assigned Sleep Provider 07/09/21 01/04/23 Christen Gallardo MD [address] [facility] [place] 703845 Assigned Endocrinology Provider 11/18/21 Ana Fink MD [address] [place] [address] Fellow Gastroenterology 10/16/22 documented as of this encounter
--- OUTSIDE RECORDS SUMMARY | 2024-12-25 13:40 | XMS_ITS | Encounter Summary ---
Author Organization [facility] Address [address] [place] [address] Care Team Providers Care Sales Representative [employer] Name Role Phone Tatyana Dwyer MD Primary Care P rolorettader Tatyana Dwyer MD Unavailable Annalee Toussaint-C Unavailable Cr Fung MD Unavailable Bianca Rubalcava RN Unavailable [phone] Keegan Montemayor MD Unavailable Un available Joselin Andrade PA-C Unavailable Steven Tatum MD Unavailable Jim Mark MD Unavailable [phone] Jaime [place] MD Unavailable [phone] Annalee Toussaint-C Unavailable [phone] Honey Jackson APRN, CNP Unavailable [phone] Wm Ryan MD Unavailable Tatyana Dywer MD Unavailable Amalia Agosto GC Unavailable [phone] Jaime [place] MD Unavailable [phone] Christen Gallardo MD Unavailable [phone] Ana Fink MD Unavailable Encounter Details Date Type Department Care Team (Late st Contact Info) Description 06/30/2019 MyC Medical Advice [facility] Heart [facility] [address] [facility] 140 [place] [phone] Keegan Montemayor MD Social History Tobacco Use [...] PM CDT 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 He can just stop metoprolol 1 day and start Bystolic the next day. Keegan Montemayor MD Cardiology - [facility] Heart Pager: [phone] Text Page June 30, 2019 I MIXER OPERATOR documented in this encounter Plan of Treatment Upcoming Encounters Date Type Department Care Team (Late st Contact Info) Description 02/10/2025 11:30 AM CDT Office Visit [facility] Specialty [address] 200 [place] [phone] Christen Gallardo MD 3359 [place] [address] 11/22/2025 10:00 AM CDT Office Visit [facility] [address] [place] [phone] Tatyana Dwyer MD [address] [place], [place] 328527 documented as of this encounter Visit Diagnoses Not on filedocumented in this encounter Additional Health Concerns Infection Onset Date Last Indicated Resolved Time Rule Out COVID-10/25/2021 10/25/2021 10/26/2021 12:43 PM CDT COVID-19 10/25/2021 10/25/2021 11/15/2021 11:3 9 PM CDT documented as of this encounter Care Teams Sales Representative [employer] Relationship Specialty Start Date End Date Tatyana Dwyer MD [address] [place] [address] PCP - General Internal Medicine 06/01/19 Tatyana Dwyer MD [address] [place] [address] Assigned PCP 05/31/19 10/15/20 Annalee Toussaint, PAMarianaC [address] 528495 Physician Warehouse Guard Physician Warehouse Guard - Medical 07/15/19 Cr Fung MD [address] [place] [address] 336315 Urology 07/15/19 Bianca Rubalcava, RN Specialty Dragger Urology 07/15/19 Keegan Montemayor MD Assigned Heart and Vascular Provider 04/08/20 12/27/20 Joselin Andrade PA-C 830 [place] [address] Assigned Pediatric Specialist Provider 04/08/20 07/17/20 [place] [address] [place] [address] Assigned Surgical Provider 04/08/20 07/22/21 Jim Mark MD 909 [place] [address] Assigned Musculoskeletal Provider 04/08/20 02/11/21 Jaime [place] MD [address] [place] [place] [address] Assigned Sleep Provider 04/08/2004/08 Annalee Toussaint PA-C [address] [place] [address] Assigned OBGYN Provider 08/31/20 1 Honey Jackson APRN SPAR CAP BEVELER [address] [place], [place] 746097 Assigned PCP 10/16/20 02/04/21 Wm Ryan MD [address] [place] [address] Resident Student in organized health care education/training program 02/01/21 Tatyana Dwyer MD [address] [place] [address] Assigned PCP 02/05/21 Amalia Agosto GC 2450 [place] [address] Assigned OBGYN Provider 05/07/21 07/15/21 Jaime [place] MD [address] [facility] [address] [address] Assigned Sleep Provider 07/09/21 Christen Gallardo MD [address] [facility] [place] [address] Assigned Endocrinology Provider 11/18/21 Ana Fink MD [address] [place] [address] Fellow Gastroenterology 10/16/22 documented as of this encounter
--- OUTSIDE RECORDS SUMMARY | 2024-12-25 13:40 | XMS_ITS | Encounter Summary ---
Author Organization [facility] Address [address] [place] [address]. [place] [address] Care Team Providers Care Cheese Cook Name Role Phone Tatyana Dwyer MD Primary Care P rovider Annalee Toussaint-C Unavailable [phone] Cr Fung MD Unavailable [phone] Bianca Rubalcava RN Unavailable [phone] Wm Ryan MD Unavailable Tatyana Dwyer MD Unavailable Christen Gallardo MD Unavailable [phone] Ana Fink MD Unavailable Encounter Details Date Type Department Care Team (Late st Contact Info) Description 04/03/2023 [facility] [address] [address] [facility] Social History Tobacco Use Types Packs/Day Years [...] PM CDT 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 Gender Identity Male 12/19/2020 9:52 PM CDT [...] Description 02/10/2025 11:30 AM CDT Office Visit [address] 200 [place] [phone] Christen Gallardo MD [address] [place] [address] 11/22/2025 10:00 AM CDT Office Visit [address] [place] [address] Tatyana Dwyer MD [address] [place], [place] 668627 documented as of this encounter Visit Diagnoses Not on filedocumented in this encounter Care Teams Cheese Cook Relationship Specialty Start Date End Date Tatyana Dwyer MD [address] [place], [place] [address] PCP - General Internal Medicine 06/01/19 Annalee Toussaint PA-C [address] [place] [address] Physician Band Aid Machine Operator Physician Band Aid Machine Operator - Medical 07/15/19 Cr Fung MD [address] [place] [address] 394 [place] [address] Urology 07/15/19 Bianca Rubalcava, RODNEY Specialty Warehouse Checker Urology 07/15/19 Wm Ryan MD [address] [place] [address] 528755 Resident Student in [facility] health care education/training program 02/01/21 Tatyana Dwyer MD [address] [place], [place] 400237 Assigned PCP 02/05/21 Christen Gallardo MD [address] [place] 086745 Assigned Endocrinology Provider 11/18/21 Ana Fink MD [address] [place] [address] 553535 Fellow Gastroenterology 10/16/22 documented as of this encounter
--- OUTSIDE RECORDS SUMMARY | 2024-12-25 13:40 | XMS_ITS | Encounter Summary ---
Author Organization [facility] Address [address] [place] [address]. [place] [address] Care Team Providers Care Certified Wellness Program Manager Name Role Phone Tatyana Dwyer MD Primary Care P rolorettader Annalee ToussaintC Unavailable [phone] Cr Fung MD Unavailable [phone] Bianca Rubalcava RN Unavailable [phone] Wm Ryan MD Unavailable [phone] Tatyana Dwyer MD Unavailable Christen Gallardo MD Unavailable [phone] Ana Fink MD Unavailable Encounter Details Date Type Department Care Team (Late st Contact Info) Description 01/07/2024 MyC Medical Advice [facility] [address] [place] [address] Shanice Lo Social History Tobacco [...] Answer Date Recorded PHQ-2 Score 0 11/21/2023 [facility] of Occupat ional Health - Occupational Stress [...] CDT 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 Gender Identity Male 12/19/2020 9:52 PM CDT Sexual Orientation Straight 12/19/2020 9: 52 PM CDT documented as of this encounter Plan of Treatment Upcoming Encounters Date Type Department Care Team (Late st Contact Info) Description 02/10/2025 11:30 AM CDT Office Visit [facility] [address] [place] [address] 200 [place] [address] Christen Gallardo MD [address] [place] [address] 11/22/2025 10:00 AM CDT Office Visit [facility] [address] [place] [phone] Tatyana Dwyer MD [address] [place], [place] [address]227 documented as of this encounter Visit Diagnoses Not on filedocumented in this encounter Care Teams Certified Wellness Program Manager Relationship Specialty Start Date End Date Tatyana Dwyer MD [address] [place], [place] [phone] PCP - General Internal Medicine 12/16/19 Annalee Toussaint PA-C [address] [place] [address] [place] [address] Physician Material Reprocessing Associate Physician Material Reprocessing Associate - Medical 07/15/19 Cr Fung MD [address] [place] [address] 394 [place], [place] 913935 Urology 07/15/19 Bianca Rubalcava, RN Specialty Erosion Control Coordinator Urology 07/15/19 Wm [place] MD [address] [place] [address] 906285 Resident Student in organized health care education/training program 02/01/21 Tatyana Dwyer MD [address] [place] [address] Assigned PCP 02/05/21 Christen Gallardo MD [address] [place] [address] Assigned Endocrinology Provider 11/18/21 Ana Fink MD [address] [place] [address] 220175 Fellow Gastroenterology 10/16/22 documented as of this encounter
--- OUTSIDE RECORDS SUMMARY | 2024-12-25 13:40 | XMS_ITS | Encounter Summary ---
Author Organization [place] Address [facility] [place] [address] Care Team Providers Care Seismometer Operator Name Role Phone Tatyana Dwyer MD Primary Care P rovider Annalee Toussaint PA-C Unavailable [phone] Cr Fung MD Unavailable Bianca Rubalcava RN Unavailable [phone] Wm Ryan MD Unavailable [phone] Tatyana Dwyer MD Unavailable Christen Gallardo MD Unavailable [phone] Ana Fink MD Unavailable Encounter Details Date Type Department Care Team (Late st Contact Info) Description 02/10/2024 MyC Medical Advice [facility] [address] [address] May Farah Social History [...] Answer Date Recorded PHQ-2 Score 0 11/21/2023 [facility] [place] of Occupat ional Health - Occupational Stress [...] PM CDT 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 Gender Identity Male 12/19/2020 9:52 PM CDT Sexual Orientation Straight 12/19/2020 9: 52 PM CDT documented as of this encounter Plan of Treatment Upcoming Encounters Date Type Department Care Team (Late st Contact Info) Description 02/10/2025 11:30 AM CDT Office Visit [facility] [address] [facility] [address] [place] [phone] Christen Gallardo MD 640 [place] [address] 11/22/2025 10:00 AM CDT Office Visit [place] [address] [place] [phone] Tatyana Dwyer MD [address] [place], [place] [address] documented as of this encounter Visit Diagnoses Not on filedocumented in this encounter Care Teams Seismometer Operator Relationship Specialty Start Date End Date Tatyana Dwyer MD [address] [facility] [place] [address] PCP - General Internal Medicine 06/01/19 Annalee Toussaint PA-C [address] [place] [address] [place] [address] Physician Indoor Plant Technician Physician Indoor Plant Technician - Medical 07/15/19 Cr Fung MD [address] [place] [address] 598095 Urology 07/15/19 Bianca Rubalcava, RN Specialty Certified Genetic Counselor Urology 07/15/19 Wm [place] MD [address] [place] [address] Resident Student in organized health care education/training program 02/01/21 Tatyana Dwyer MD [address] [place] [address] Assigned PCP 02/05/21 Christen Gallardo MD [address] [place] [address] Assigned Endocrinology Provider 11/18/21 Ana Fink MD [address] [place] [address] Fellow Gastroenterology 10/16/22 documented as of this encounter
--- OUTSIDE RECORDS SUMMARY | 2024-12-25 13:40 | XMS_ITS | Encounter Summary ---
Author Organization [place] Address [address] [place] [address] Care Team Providers Care Glass Polisher Name Role Phone Tatyana Dwyer MD Primary Care P rolorettader Tatyana Dwyer MD Unavailable Annalee Toussaint-C Unavailable Cr Fung MD Unavailable Bianca Rubalcava RN Unavailable [phone] Keegan Montemayor MD Unavailable Un available Joselin Andrade PA-C Unavailable Steven Tatum MD Unavailable Jim Mark MD Unavailable [phone] Jaime Wood MD Unavailable [phone] Annalee Toussaint-C Unavailable [phone] Honey Jackson APRN, CNP Unavailable + [phone] Wm Ryan MD Unavailable Tatyana Dwyer MD Unavailable Amalia Agosto GC Unavailable Jaime Wood MD Unavailable [phone] Christen Gallardo MD Unavailable [phone] Ana Fink MD Unavailable Encounter Details Date Type Department Care Team (Late st Contact Info) Description 01/19/2020 MyC Medical Advice [facility] Dermatologic Surgery [address] [facility] 3rd [place] [address] [place] [address] [place] [address] Social History Tobacco Use Types Packs/Day Years [...] PM CDT 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 [address] [place] [address] Tatyana Dwyer MD [address] [place], [place] 3559[address] documented as of this encounter Visit Diagnoses Not on filedocumented in this encounter Additional Health Concerns Infection Onset Date Last Indicated Resolved Time Rule Out COVID-19 10/25/2021 10/25/2021 10/26/2021 12:43 PM CDT COVID-19 10/25/2021 10/25/2021 11/15/2021 11:3 9 PM CDT documented as of this encounter Care Teams Glass Polisher Relationship Specialty Start Date End Date Tatyana Dwyer MD [address] [place], [place] 363207 PCP - General Internal Medicine 06/01/19 Tatyana Dwyer MD [address] [place], [place] 446707 Assigned PCP 05/31/19 10/15/20 Annalee Toussaint PA-C [address] 435545 Physician Pipe Foreman Physician Pipe Foreman - Medical 07/15/19 Cr Fung MD [address] [place] [address] 394 [place], [place] 934375 Urology 07/15/19 Bianca Rubalcava, RN Specialty Community Action Worker Urology 07/15/19 Keegan Montemayor MD Assigned Heart and Vascular Provider 04/08/20 12/27/20 Joselin Andrade PA-C [address] [place] [address] Assigned Pediatric Specialist Provider 04/08/20 07/17/20 [place] [address] [place] [address] Assigned Surgical Provider 04/08/20 07/22/21 Jim Mark MD [address] [place], [place] 494415 Assigned Musculoskeletal Provider 04/08/20 02/11/21 Jaime Wood MD [address] [place] [address] Assigned Sleep Provider 04/08/2004/08 Annalee Toussaint PA-C [address] [place], [place] 924245 Assigned OBGYN Provider 08/31/20 1 Honey Jackson APRN [facility] [address] [place] [address] Assigned PCP 10/16/20 02/04/21 Wm Ryan MD [address] [place] [address] 605345 Resident Student in organized health care education/training program 02/01/21 Tatyana Dwyer MD [address] [place] [address] Assigned PCP 02/05/21 Amalia Agosto GC 2450 [place] [address] Assigned OBGYN Provider 05/07/21 07/15/21 Jaime Wood MD [address] [place] [address] [place] [address] Assigned Sleep Provider 07/09/21 Christen Gallardo MD [address] [place] 209725 Assigned Endocrinology Provider 11/18/21 Ana Fink MD [address] [place] [address] 795725 Fellow Gastroenterology 10/16/22 documented as of this encounter
--- OUTSIDE RECORDS SUMMARY | 2024-12-25 13:40 | XMS_ITS | Encounter Summary ---
Author Organization [place] Address [address] [place] [address] Care Team Providers Care Rim Fire Priming Operator Name Role Phone Tatyana Dwyer MD Primary Care P rovider Annalee Toussaint-C Unavailable [phone] Cr Fung MD Unavailable Bianca Rubalcava RN Unavailable [phone] Wm Ryan MD Unavailable Tatyana Dwyer MD Unavailable Christen Gallardo MD Unavailable [phone] Ana Fink MD Unavailable Encounter Details Date Type Department Care Team (Late st Contact Info) Description 04/02/2023 [facility] [address] [address] Ana Fink MD [address] [place] [address] Social History Tobacco Use Types [...] PM CDT 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 Gender Identity Male 12/19/2020 9:52 [...] Description 02/10/2025 11:30 AM CDT Office Visit [address] [phone] Christen Gallardo MD 3050 [place] [address] 11/22/2025 10:00 AM CDT Office Visit [facility] [address] [place] [address] Tatyana Dwyer MD [address] [place], [place] 992557 documented as of this encounter Visit Diagnoses Not on filedocumented in this encounter Care Teams Rim Fire Priming Operator Relationship Specialty Start Date End Date Tatyana Dwyer MD [address] [place] [address] PCP - General Internal Medicine 06/01/19 Annalee Toussaint PA-C [address] [place] [address] [place] 393365 Physician Business Intelligence Etl Developer Physician Business Intelligence Etl Developer - Medical 07/15/19 Cr Fung MD [address] [place] [address] 544135 Urology 07/15/19 Bianca Rubalcava, RODNEY Specialty Silver Cleaner Urology 07/15/19 Wm Ryan MD [address] [place] [address] 666105 Resident Student in organized health care education/training program 02/01/21 Tatyana Dwyer MD [address] [place], [place] 422287 Assigned PCP 02/05/21 Christen Gallardo MD [address] [place] [address] Assigned Endocrinology Provider 11/18/21 Ana Fink MD [address] [place] [address] 113095 Fellow Gastroenterology 10/16/22 documented as of this encounter
--- OUTSIDE RECORDS SUMMARY | 2024-12-25 13:40 | XMS_ITS | Encounter Summary ---
Author Organization [place] Address [address] [facility] [place] [address] Care Team Providers Care Defensive Driving Instructor Name Role Phone Tatyana Dwyer MD Primary Care P rovider Annalee Toussaint-C Unavailable Cr Fung MD Unavailable [phone] Bianca Rubalcava RN Unavailable [phone] Steven Tatum MD Unavailable Jaime Wood MD Unavailable Wm Ryan MD Unavailable Tatyana Dwyer MD Unavailable Amalia Agosto GC Unavailable [phone] Jaime Wood MD Unavailable Christen Gallardo MD Unavailable [phone] Ana Fink MD Unavailable Encounter Details Date Type Department Care Team (Late st Contact Info) Description 04/06/2021 External Order Results [facility] [address] [place] [address] Outside, Provider Social History Tobacco Use Types [...] PM CDT 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 Gender Identity Male 12/19/2020 9:52 PM CDT [...] Description 02/10/2025 11:30 AM CDT Office Visit [facility] [address] [place] [address] 200 [place] [address] Christen Gallardo MD [address] [place] [address] 11/22/2025 10:00 AM CDT Office Visit [facility] [address] [place] [phone] Tatyana Dwyer MD [address] [place], [place] 312827 documented as of this encounter Visit Diagnoses Not on filedocumented in this encounter Additional Health Concerns Infection Onset Date Last Indicated Resolved Time Rule Out COVID-19 10/25/2021 10/25/2021 10/26/2021 12:43 PM CDT COVID-19 10/25/2021 10/25/2021 11/15/2021 11:3 9 PM CDT documented as of this encounter Care Teams Defensive Driving Instructor Relationship Specialty Start Date End Date Tatyana Dwyer MD [address] [place] [address] PCP - General Internal Medicine 06/01/19 Annalee Toussaint PA-C [address] [place], [place] 403305 Physician Portfolio Lead Physician Portfolio Lead - Medical 07/15/19 Cr Fung MD [address] [place] [address] 046755 Urology 07/15/19 Bianca Rubalcava, RODNEY Specialty Feather Stitcher Urology 07/15/19 [place] [address] [place], [place] 111[address] Assigned Surgical Provider 04/08/20 07/22/21 Jaime Wood MD [address] [place] [address] Assigned Sleep Provider 04/08/20 04/08/21 Wm Ryan MD [address] [place] [address] 788075 Resident Student in organized health care education/training program 02/01/21 Tatyana Dwyer MD [address] [place] [address] Assigned PCP 02/05/21 Amalia Agosto GC [address] [place] [address] Assigned OBGYN Provider 05/07/21 07/15/21 Jaime Wood MD [address] [facility] [address] [place] [address] Assigned Sleep Provider 07/09/21 01/04/23 Christen Gallardo MD [address] [place] [address] Assigned Endocrinology Provider 11/18/21 Ana Fink MD [address] [place] [address] Fellow Gastroenterology 10/16/22 documented as of this encounter
--- OUTSIDE RECORDS SUMMARY | 2024-12-25 13:40 | XMS_ITS | Encounter Summary ---
Author Organization [place] Address [facility] [place] [address] Care Team Providers Care Anime Designer Name Role Phone Tatyana Dwyer MD Primary Care P rovider Annalee Toussaint-C Unavailable [phone] Cr Fung MD Unavailable Bianca Rubalcava RN Unavailable [phone] Wm Ryan MD Unavailable [phone] Tatyana Dwyer MD Unavailable Christen Gallardo MD Unavailable [phone] Ana Fink MD Unavailable Encounter Details Date Type Department Care Team (Late st Contact Info) Description 06/24/2023 [facility] Medical Advice [facility] [address] [address] May Farah Social History Tobacco [...] PM CDT 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 [address] [place] [address] Christen Gallardo MD [address] [place], [place] 477725 11/22/2025 10:00 AM CDT Office Visit [facility] [address] [facility] [address] [place] [phone] Tatyana Dwyer MD [address] [place], [place] 833497 documented as of this encounter Visit Diagnoses Not on filedocumented in this encounter Care Teams Anime Designer Relationship Specialty Start Date End Date Tatyana Dwyer MD [address] [place], [place] 777517 PCP - General Internal Medicine 06/01/19 Annalee Toussaint PA-C [address] [place] [address] Physician Supervisor Telephone Clerks Physician Supervisor Telephone Clerks - Medical 07/15/19 Cr Fung MD [address] [place] [address] 394 [place] [address] Urology 07/15/19 Bianca Rubalcava, RN Specialty Combatant Diver Officer Urology 07/15/19 Wm Ryan MD [address] [place] [address] 576405 Resident Student in organized health care education/training program 02/01/21 Tatyana Dwyer MD [address] [place], [place] 838877 Assigned PCP 02/05/21 Christen Gallardo MD [address] [place] [place], [place] 748375 Assigned Endocrinology Provider 11/18/21 Ana Fink MD [address] [place] [address] 128545 Fellow Gastroenterology 10/16/22 documented as of this encounter
--- OUTSIDE RECORDS SUMMARY | 2024-12-25 13:40 | XMS_ITS | Encounter Summary ---
Author Organization [place] Address [facility] [place] [address] Care Team Providers Care Lorry Weigher Name Role Phone Tatyana Dwyer MD Primary Care P rovider Annalee Toussaint-C Unavailable Cr Fung MD Unavailable [phone] Bianca Rubalcava RN Unavailable [phone] Wm Ryan MD Unavailable [phone] Tatyana Dwyer MD Unavailable Christen Gallardo MD Unavailable [phone] Ana Fink MD Unavailable Encounter Details Date Type Department Care Team (Late st Contact Info) Description 03/15/2023 [facility] Adv[facility] [address] 200 [place] [address] Christen Gallardo MD [address] [place], [place] 248645 Social History Tobacco Use Types Packs/Day Years [...] PM CDT 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 [address] [place] [address] Christen Gallardo MD [address] [place] [address] 11/22/2025 10:00 AM CDT Office Visit [facility] [address] [place] [address] Tatyana Dwyer MD [address] [place], [place] 753757 documented as of this encounter Visit Diagnoses Not on filedocumented in this encounter Care Teams Lorry Weigher Relationship Specialty Start Date End Date Tatyana Dwyer MD [address] [place] [address] PCP - General Internal Medicine 06/01/19 Annalee Toussaint PA-C [address] [facility] 500 [place], [place] 790685 Physician Lettuce Cutter Physician Lettuce Cutter - Medical 07/15/19 Cr Fung MD [address] [place] [address] 985125 Urology 07/15/19 Bianca Rubalcava, RN Specialty Nuclear Worker Technician Urology 07/15/19 Wm Ryan MD [address] [place] [address] 337555 Resident Student in [facility] education/training program 02/01/21 Tatyana Dwyer MD [address] [place], [place] 511597 Assigned PCP 02/05/21 Christen Gallardo MD [address] [place] [place], [place] 350675 Assigned Endocrinology Provider 11/18/21 Ana Fink MD [address] [place] [address] 788125 Fellow Gastroenterology 10/16/22 documented as of this encounter
--- OUTSIDE RECORDS SUMMARY | 2024-12-25 13:40 | XMS_ITS | Clinical Summary ---
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
--- OUTSIDE RECORDS SUMMARY | 2024-12-25 13:40 | XMS_ITS | Encounter Summary ---
Author Organization [place] Address [address] [place] [address] Care Team Providers Care Manager Internet Name Role Phone Tatyana Dwyer MD Primary Care P rovider Annalee ToussaintC Unavailable [phone] Cr Fung MD Unavailable Bianca Rubalcava RN Unavailable [phone] Wm Ryan MD Unavailable [phone] Tatyana Dwyer MD Unavailable Christen Gallardo MD Unavailable [phone] Ana Fink MD Unavailable Encounter Details Date Type Department Care Team (Late st Contact Info) Description 06/18/2023 [facility] Medical Advice [facility] [address] [address] Jailyn Crawford Social History Tobacco [...] AM CDT Office Visit [facility] [address] [facility] [address] [place] [address] Christen Gallardo MD [address] [place], [place] 366[address] 11/22/2025 10:00 AM CDT Office Visit [facility] [address] [address] [place] [phone] Tatyana Dwyer MD [address] [place], [place] 726007 documented as of this encounter Visit Diagnoses Not on filedocumented in this encounter Care Teams Manager Internet Relationship Specialty Start Date End Date Tatyana Dwyer MD [address] [place], [place] 342157 PCP - General Internal Medicine 06/01/19 Annalee Toussaint, DUSTYC [address] [place] [address] Physician Ball Holder Physician Ball Holder - Medical 07/15/19 Cr Fung MD [address] [place] [address] 017225 Urology 07/15/19 Bianca Rubalcava, RN Specialty School Custodian Urology 07/15/19 Wm Ryan MD [address] [place] [address] 079505 Resident Student in organized health care education/training program 02/01/21 Tatyana Dwyer MD [address] [place] [address] Assigned PCP 02/05/21 Christen Gallardo MD [address] [place] 130885 Assigned Endocrinology Provider 11/18/21 Ana Fink MD [address] [place] [address] 231905 Fellow Gastroenterology 10/16/22 documented as of this encounter
--- OUTSIDE RECORDS SUMMARY | 2024-12-25 13:40 | XMS_ITS | Encounter Summary ---
Author Organization [place] Address [facility] [place] [address] Care Team Providers Care Brake Operator Sheet Metal Name Role Phone Tatyana Dwyer MD Primary Care P rovider Annalee Toussaint PA-C Unavailable [phone] Cr Fung MD Unavailable [phone] Bianca Rubalcava RN Unavailable [phone] Wm Ryan MD Unavailable Tatyana Dwyer MD Unavailable Jaime Wood MD Unavailable Christen Gallardo MD Unavailable [phone] Ana Fink MD Unavailable Reason for Visit * Reason Onset Date Comments MyChart Communication 03/08/2022 Encounter Details Date Type Department Care Team (Late st Contact Info) Description 03/08/2022 MyC Medical Advice [address] [place] [address] Tatyana Dwyer MD [address] [place] [address] MyChart Communication Social History Tobacco [...] CDT 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 Gender Identity Male 12/19/2020 9:52 PM CDT Sexual Orientation Straight 12/19/2020 9: 52 PM CDT documented as of this encounter Miscellaneous Notes * Telephone Encounter - Adriana Minor RN - 03/09/2022 2:00 PM CDT INRFOOD message sent to patient requesting nurse only [...] Description 02/10/2025 11:30 AM CDT Office Visit [address] [address] Christen Gallardo MD [address] [place] [address] 11/22/2025 10:00 AM CDT Office Visit [facility] [address] [place] [address] Tatyana Dwyer MD [address] [place], [place] 311037 documented as of this encounter Visit Diagnoses Diagnosis HTN, goal below 140/90 Unspecified essential hypertension Tachycardia Tachycardia, unspecified documented in this encounter Care Teams Brake Operator Sheet Metal Relationship Specialty Start Date End Date Tatyana Dwyer MD [address] [place] [place], [place] 730[address] PCP - General Internal Medicine 06/01/19 Annalee Toussaint PA-C [address] [place], [place] 028285 Physician Injection Molding Process Technician Physician Injection Molding Process Technician - Medical 07/15/19 Cr Fung MD [address] [place] [address] 739085 Urology 07/15/19 Bianca Rubalcava, RODNEY Specialty Paperback Machine Operator Urology 07/15/19 Wm Ryan MD [address] [place] [address] 032995 Resident Student in organized health care education/training program 02/01/21 Tatyana Dwyer MD [address] [place] [address] Assigned PCP 02/05/21 Jaime Wood MD [address] [place] [address] Assigned Sleep Provider 07/09/21 01/04/23 Christen Gallardo MD [address] [place] [address] Assigned Endocrinology Provider 11/18/21 Ana Fink MD [address] [place] [address] Fellow Gastroenterology 10/16/22 documented as of this encounter
--- OUTSIDE RECORDS SUMMARY | 2024-12-25 13:40 | XMS_ITS | Encounter Summary ---
Author Organization [place] Address [address] [place] [address] Care Team Providers Care Senior Cyber Intelligence Analyst Name Role Phone Tatyana Dwyer MD Primary Care P rolorettader Tatyana Dwyer MD Unavailable Annalee Toussaint PA-C Unavailable [phone] Cr Fung MD Unavailable [phone] Bianca Rubalcava RN Unavailable [phone] Keegan Montemayor MD Unavailable Un available Steven Tatum MD Unavailable Jim Mark MD Unavailable [phone] Jaime Wood MD Unavailable [phone] Annalee Toussaint PA-C Unavailable [phone] oHney Jackson APRN, CNP Unavailable + [phone] Wm Ryan MD Unavailable [phone] Tatyana Dwyer MD Unavailable Amalia Agosto GC Unavailable [phone] Jaime Wood MD Unavailable [phone] Christen Gallardo MD Unavailable [phone] Ana Fink MD Unavailable Encounter Details Date Type Department Care Team (Late st Contact Info) Description 08/29/2020 MyC Medical Advice [facility] [address] [facility] 200 [place] [phone] Lucinda Alaniz MA Social History Tobacco Use [...] PM CDT Legal 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 No / Unsure 08/23/2020 12:45 PM FISHING VESSEL DECKHAND documented as of this encounter Plan of Treatment Upcoming Encounters Date Type Department Care Team (Late st Contact Info) Description 02/10/2025 11:30 AM CDT Office Visit [address] [place] [phone] Christen Gallardo MD [address] [place] [address] 11/22/2025 10:00 AM CDT Office Visit [facility] [address] [place] [phone] Tatyana Dwyer MD [address] [place], [place] 298427 documented as of this encounter Visit Diagnoses Not on filedocumented in this encounter Additional Health Concerns Infection Onset Date Last Indicated Resolved Time Rule Out COVID-19 10/25/2021 10/25/2021 10/26/2021 12:43 PM CDT COVID-19 10/25/2021 10/25/2021 11/15/2021 11:3 9 PM CDT documented as of this encounter Care Teams Senior Cyber Intelligence Analyst Relationship Specialty Start Date End Date Tatyana Dwyer MD [address] [place], [place] 828217 PCP - General Internal Medicine 06/01/19 Tatyana Dwyer MD [address] [place] [address] Assigned PCP 05/31/19 10/15/20 Annalee Toussaint, DUSTYC [address] 433685 Physician Patrol Police Sergeant Physician Patrol Police Sergeant - Medical 07/15/19 Cr Fung MD [address] [place] [address] 394 [place], [place] 600445 Urology 07/15/19 Bianca Rubalcava, RN Specialty Ornament Stapler Urology 07/15/19 Keegan Montemayor MD Assigned Heart and Vascular Provider 04/08/20 12/27/20 [place] [address] [place] [address] Assigned Surgical Provider 04/08/20 07/22/21 [place] [address] [place] [address] 853145 Assigned Musculoskeletal Provider 04/08/20 02/11/21 Jaime Wood MD [address] [place], [place] 511905 Assigned Sleep Provider 04/08/2004/08 Annalee Toussaint PA-C [address] [place], [place] 821085 Assigned OBGYN Provider 08/31/20 1 Honey Jackson APRN SCREW MACHINE SET UP OPERATOR [address] [place] [address] Assigned PCP 10/16/20 02/04/21 Wm Ryan MD [address] [place] [address] 078375 Resident Student in organized health care education/training program 02/01/21 Tatyana Dwyer MD [address] [place] [address] Assigned PCP 02/05/21 Amalia Aogsto GC [address] [place], [place] 075204 Assigned OBGYN Provider 05/07/21 07/15/21 Jaime Wood MD [address] [place], [place] 742375 Assigned Sleep Provider 07/09/21 Christen Gallardo MD [address] [place] [address] Assigned Endocrinology Provider 11/18/21 Ana Fink MD [address] [place] [address] Fellow Gastroenterology 10/16/22 documented as of this encounter
--- OUTSIDE RECORDS SUMMARY | 2024-12-25 13:40 | XMS_ITS | Encounter Summary ---
Author Organization [facility] Address [address] [place] [address] Care Team Providers Care Traffic Worker Name Role Phone Tatyana Dwyer MD Primary Care P rovider Annalee ToussaintC Unavailable [phone] Cr Fung MD Unavailable Bianca Rubalcava RN Unavailable [phone] Wm Ryan MD Unavailable Tatyana Dwyer MD Unavailable Christen Gallardo MD Unavailable [phone] Ana Fink MD Unavailable Encounter Details Date Type Department Care Team (Late st Contact Info) Description 06/18/2023 [facility] Medical Advice [facility] [address] [address] Jailyn Crawford Social History Tobacco [...] PM CDT 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 [address] [facility] [address] [place] [phone] Tatyana Dwyer MD [address] [place], [place] 7963[address] documented as of this encounter Visit Diagnoses Not on filedocumented in this encounter Care Teams Traffic Worker Relationship Specialty Start Date End Date Tatyana Dwyer MD [address] [place], [place] 017447 PCP - General Internal Medicine 06/01/19 Annalee Toussaint, DUSTYC [address] [place] [address] Physician Shafting Worker Physician Shafting Worker - Medical 07/15/19 Cr Fung MD [address] [place] [address] 744115 Urology 07/15/19 Bianca Rubalcava, RN Specialty Card Stripper Urology 07/15/19 Wm Ryan MD [address] [place] [address] [id number] Resident Student in organized health care education/training program 02/01/21 Tatyana Dwyer MD [address] [place] [address] Assigned PCP 02/05/21 Christen Gallardo MD [address] [place], [place] 012245 Assigned Endocrinology Provider 11/18/21 Ana Fink MD [address] [place] [address] [id number] Fellow Gastroenterology 10/16/22 documented as of this encounter
--- OUTSIDE RECORDS SUMMARY | 2024-12-25 13:40 | XMS_ITS | Encounter Summary ---
Author Organization [facility] Address [address] [place] [address] Care Team Providers Care Care Assistant Name Role Phone Michelet Velasco MD Primary Care Provid er Reason for Visit * Reason Comments Pre-procedure Call Encounter Details Date Type Department Care Team (Late st Contact Info) Description 11/13/2024 Telephone [facility] [address] [place] [address] Judith Thompson RN Pre-procedure Call Social History Tobacco Use Types Packs/Day Years [...] on file documented as of this encounter Nursing Notes * Judith Thompson RN - 11/13/2024 10:15 AM CDT Pre-procedure instructions called to [employer] Manager used? na Language: ID: Name: Arrival Time: 830 Non sedation pt: Nothing 2 hours prior to procedure, Light meal ok prior to that. Sedation Pt: NPO solids 6 hours prior with Clear liquids up to 2 hours prior to procedure. Nothing for 2 hours prior. Encouraged pt to take prescription medications with a sip of water as usual in am. 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 Reviewed NSAID use with patient: (Cervical JEFFERSON) Last Dose na Blood thinners (JEFFERSON, Cervical RFA, Stellate, LSB only): Last Dose na INR plan na Patient on anticoagulation medication . Patient instructed to contact ordering provider to get approval to hold the medication for days per pain program guidelines. Explained there are risks of stopping the medication, and this is the reason approval needs to be obtained through the ordering provider. Patient aware procedure can not be done until this is followed. Currently on Antibiotics? na Flu Shot/Vaccines within 7 days? na Covid Symptoms? na Recent Covid? na Recent Steroid injection? na If Diabetic is patient under good control? Recent BS? na Ozempic/Wegovy/Trulicity/Mounjaro/Zepbound/etc (GLP-1/GIP): If having a sedation procedure instructto hold x 1 week prior to procedure. Reminder if female age 50 or less will need a UPT if no hysterectomy. Wear loose fitting, comfortable clothing, no valuables (jewelry, etc). Bring photo ID & medical cards. Patient verbalized understanding of all of the above & questions/concerns answered. documented in this encounter Plan of Treatment Not on file documented as of this encounter Visit Diagnoses Not on filedocumented in this encounter Care Teams Care Assistant Relationship Specialty Start Date End Date Michelet Velasco MD [address] [place] [address] PCP - General 10/20/13 documented as of this encounter
--- OUTSIDE RECORDS SUMMARY | 2024-12-25 13:40 | XMS_ITS | Encounter Summary ---
Author Organization [facility] Address [address] [place] [address] Care Team Providers Care Grocery Store Associate Name Role Phone Tatyana Dwyer MD Primary Care P rolorettader Tatyana Dwyer MD Unavailable Annalee Toussaint PA-C Unavailable [phone] Cr Fung MD Unavailable [phone] Bianca Rubalcava RN Unavailable [phone] Keegan Mnotemayor MD Unavailable Un available Steven Tatum MD Unavailable Jim Mark MD Unavailable Jaime Wood MD Unavailable [phone] Annalee Toussaint PA-C Unavailable [phone] Honey Jackson APRN, CNP Unavailable + [phone] Wm Ryan MD Unavailable [phone] Tatyana Dwyer MD Unavailable Amalia Agosto GC Unavailable [phone] Jaime Wood MD Unavailable [phone] Christen Gallardo MD Unavailable [phone] Ana Fink MD Unavailable Encounter Details Date Type Department Care Team (Late st Contact Info) Description 07/28/2020 MyC Medical Advice [facility] [address] [facility] [address] [place] [address] Hill Spears MD [address] [facility] [address] [place] [address] Social History Tobacco Use Types Packs/Day Years [...] CDT 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 Gender Identity Male 12/19/2020 9:52 PM CDT Sexual Orientation Straight 12/19/2020 9: 52 PM CDT documented as of this encounter Plan of Treatment Upcoming Encounters Date Type Department Care Team (Late st Contact Info) Description 02/10/2025 11:30 AM CDT Office Visit [address] [place] [phone] Christen Gallardo MD [address] [place] [address] 11/22/2025 10:00 AM CDT Office Visit [facility] [address] [place] [phone] Tatyana Dwyer MD [address] [place], [place] 7760[address] documented as of this encounter Visit Diagnoses Not on filedocumented in this encounter Additional Health Concerns Infection Onset Date Last Indicated Resolved Time Rule Out COVID-19 10/25/2021 10/25/2021 10/26/2021 12:43 PM CDT COVID-19 10/25/2021 10/25/2021 11/15/2021 11:3 9 PM CDT documented as of this encounter Care Teams Grocery Store Associate Relationship Specialty Start Date End Date Tatyana Dwyer MD [address] [place] [address] PCP - General Internal Medicine 06/01/19 Tatyana Dwyer MD [address] [place] [address] Assigned PCP 05/31/19 10/15/20 Annalee Toussaint PAMarianaC [address] [facility] [address] 4[address] Physician Office Professional Physician Office Professional - Medical 07/15/19 Cr Fung MD [address] [facility] [address] [place], [place] 0[address] Urology 07/15/19 Bianca Rubalcava, RN Specialty Geophysical Computer Urology 07/15/19 Keegan Montemayor MD Assigned Heart and Vascular Provider 04/08/20 12/27/20 [place] [address] [place] [address] Assigned Surgical Provider 04/08/20 07/22/21 Jim Mark MD [address] [place] [address] Assigned Musculoskeletal Provider 04/08/20 02/11/21 Jaime Wood MD [address] [place] [address] Assigned Sleep Provider 04/08/2004/08 Annalee Toussaint PA-C [address] [place] [address] Assigned OBGYN Provider 08/31/20 1 Honey Jackson APRN CNP [address] [place] [address] Assigned PCP 10/16/20 02/04/21 Wm Ryan MD [address] [place], [place] [address] Resident Student in organized health care education/training program 02/01/21 Tatyana Dwyer MD [address] [place] [address] Assigned PCP 02/05/21 Amalia Agosto GC [address]50 [place] [address] Assigned OBGYN Provider 05/07/21 07/15/21 Jaime Wood MD [address] [place] [address] Assigned Sleep Provider 07/09/21 Christen Gallardo MD [address] [place] [address] Assigned Endocrinology Provider 11/18/21 Ana Fink MD [address] [place] [address] Fellow Gastroenterology 10/16/22 documented as of this encounter
--- OUTSIDE RECORDS SUMMARY | 2024-12-25 13:40 | XMS_ITS | Encounter Summary ---
Author Organization [place] Address [address] [place] [address]. [place] [address] Care Team Providers Care Ct Technologist Name Role Phone Tatyana Dwyer MD Primary Care P rovider Annalee Toussaint-C Unavailable [phone] Cr Fung MD Unavailable [phone] Bianca Rubalcava RN Unavailable [phone] Wm Ryan MD Unavailable Tatyana Dwyer MD Unavailable Christen Gallardo MD Unavailable [phone] Ana Fink MD Unavailable Encounter Details Date Type Department Care Team (Late st Contact Info) Description 07/01/2023 [facility] Medical Advice [facility] [address] [address] Nita Esteban, RN Social History [...] PM CDT 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 Gender Identity Male 12/19/2020 9:52 PM CDT Sexual Orientation Straight 12/19/2020 9: 52 PM CDT documented as of this encounter Plan of Treatment Upcoming Encounters Date Type Department Care Team (Late st Contact Info) Description 02/10/2025 11:30 AM CDT Office Visit [facility] [address] [facility] [address] [place] [phone] Christen Gallardo MD [address] [place] [address] 11/22/2025 10:00 AM CDT Office Visit [facility] [address] [facility] [address] [place] [phone] Tatyana Dwyer MD [address] [place], [place] [address] documented as of this encounter Visit Diagnoses Not on filedocumented in this encounter Care Teams Ct Technologist Relationship Specialty Start Date End Date Tatyana Dwyer MD [address] [place], [place] 839377 PCP - General Internal Medicine 06/01/19 Annalee Toussaint PA-C [address] [place] [address] Physician Design Technology Teacher Physician Design Technology Teacher - Medical 07/15/19 Cr Fung MD [address] [place] [address] 760525 Urology 07/15/19 Bianca Rubalcava, RN Specialty Engineering Aid Urology 07/15/19 Wm Ryan MD [address] [place] [address] [phone] Resident Student in organized health care education/training program 02/01/21 Tatyana Dwyer MD [address] [place] [address] Assigned PCP 02/05/21 Christen Gallardo MD [address] [place] [place], [place] [address] Assigned Endocrinology Provider 11/18/21 Ana Fink MD [address] [place] [address] [id number] Fellow Gastroenterology 10/16/22 documented as of this encounter
--- OUTSIDE RECORDS SUMMARY | 2024-12-25 13:40 | XMS_ITS | Encounter Summary ---
Author Organization [employer] Address [address] [place] [address]. [place] [address] Care Team Providers Care Jacquard Loom Fixer Name Role Phone Tatyana Dwyer MD Primary Care P rovider Annalee Toussaint-C Unavailable [phone] Cr Fung MD Unavailable Bianca Rubalcava RN Unavailable [phone] Wm Ryan MD Unavailable [phone] Tatyana Dwyer MD Unavailable Christen Gallardo MD Unavailable [phone] Ana Fink MD Unavailable Encounter Details Date Type Department Care Team (Late st Contact Info) Description 09/24/2023 MyC Medical Advice [facility] [address] [address] Nita Esteban, RN Social History [...] PM CDT 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 Pt is busy at the moment but said they can go on [employer] arc to schedule a 6 month follow up visit with Dr. Gallardo sometime in April. documented in this encounter Plan of Treatment Upcoming Encounters Date Type Department Care Team (Late st Contact Info) Description 02/10/2025 11:30 AM CDT Office Visit [address] [phone] Christen Gallardo MD [address] [place] [address] 11/22/2025 10:00 AM CDT Office Visit [facility] [address] [place] [address] Tatyana Dwyer MD [address] [place] [place], [place] 9[address] documented as of this encounter Visit Diagnoses Not on filedocumented in this encounter Care Teams Jacquard Loom Fixer Relationship Specialty Start Date End Date Tatyana Dwyer MD [address] [place] [address] PCP - General Internal Medicine 06/01/19 Annalee Toussaint PA-C [address] [place] [address] [place] [address] Physician Construction Plumber Physician Construction Plumber - Medical 07/15/19 Cr Fung MD [address] [place] [address] 022535 Urology 07/15/19 Bianca Rubalcava, RODNEY Specialty District Plant Superintendent Urology 07/15/19 Wm Ryan MD [address] [place] [address] 775915 Resident Student in organized health care education/training program 02/01/21 Tatyana Dwyer MD [address] [place] [address] Assigned PCP 02/05/21 Christen Gallardo MD [address] [place] [address] Assigned Endocrinology Provider 11/18/21 Ana Fink MD [address] [place] [address] 086025 Fellow Gastroenterology 10/16/22 documented as of this encounter
--- OUTSIDE RECORDS SUMMARY | 2024-12-25 13:40 | XMS_ITS | Encounter Summary ---
Author Organization [facility] Address [address] [place] [address] Care Team Providers Care Dbas Name Role Phone Tatyana Dwyer MD Primary Care P rolorettader Tatyana Dwyer MD Unavailable Annalee Toussaint PA-C Unavailable [phone] Cr Fung MD Unavailable [phone] Bianca Rubalcava RN Unavailable [phone] Keegan Montemayor MD Unavailable Un available Steven Tatum MD Unavailable Jim Mark MD Unavailable Jaime Wood MD Unavailable [phone] Annalee Toussaint PA-C Unavailable [phone] Honey Jackson APRN, CNP Unavailable [phone] Wm Ryan MD Unavailable [phone] Tatyana Dwyer MD Unavailable mAalia Agosto GC Unavailable Jaime Wood MD Unavailable [phone] Christen Gallardo MD Unavailable [phone] Ana Fink MD Unavailable Encounter Details Date Type Department Care Team (Late st Contact Info) Description 08/23/2020 MyC Medical Advice [facility] [address] [place] [phone] Honey Jackson APRN NITROGLYCERIN NITRATOR OPERATOR BATCH [address] [place] [address] Social History Tobacco Use Types Packs/Day Years [...] PM CDT 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 No / Unsure 08/23/2020 12:45 PM COUNTY SURVEYOR documented as of this encounter Plan of Treatment Upcoming Encounters Date Type Department Care Team (Late st Contact Info) Description 02/10/2025 11:30 AM CDT Office Visit [address] [place] [address] Christen Gallardo MD [address] [place] [address] 11/22/2025 10:00 AM CDT Office Visit [facility] [address] [place] [address] Tatyana Dwyer MD [address] [place], [place] [address] documented as of this encounter Visit Diagnoses Not on filedocumented in this encounter Additional Health Concerns Infection Onset Date Last Indicated Resolved Time Rule Out COVID-19 10/25/2021 10/25/2021 10/26/2021 12:43 PM CDT COVID-19 10/25/2021 10/25/2021 11/15/2021 11:3 9 PM CDT documented as of this encounter Care Teams Dbas Relationship Specialty Start Date End Date Tatyana Dwyer MD [address] [place] [address] PCP - General Internal Medicine 06/01/19 Tatyana Dwyer MD [address] [place] [address] Assigned PCP 05/31/19 10/15/20 Annalee Toussaint, PAMarianaC [address] [address] Physician Party Plan Salesperson Physician Party Plan Salesperson - Medical 07/15/19 Cr Fung MD [address] [place] [address] 394 [place] [address] Urology 07/15/19 Bianca Rubalcava, RODNEY Specialty Director Of Product Design Urology 07/15/19 Keegan Montemayor MD Assigned Heart and Vascular Provider 04/08/20 12/27/20 [place] [address] [place], [place] [address] Assigned Surgical Provider 04/08/20 07/22/21 Jim Mark MD [address] [place] [address] Assigned Musculoskeletal Provider 04/08/20 02/11/21 Jaime Wood MD [address] [facility] [address] [place] [address] Assigned Sleep Provider 04/08/2004/08 Annalee Toussaint PA-C [address] [place], [place] 3912[address] Assigned OBGYN Provider 08/31/20 1 Honey Jackson APRN CNP [address] [place], [place] [address] Assigned PCP 10/16/20 02/04/21 Wm Ryan MD [address] [place], [place] 0[address]15 Resident Student in organized health care education/training program 02/01/21 Tatyana Dwyer MD [address] [place], [place] [address] Assigned PCP 02/05/21 Amalia Agosto GC [address] [place] [address] Assigned OBGYN Provider 05/07/21 07/15/21 Jaime Wood MD [address] [place] [address] Assigned Sleep Provider 07/09/21 Christen Gallardo MD [address] [place] [address] Assigned Endocrinology Provider 11/18/21 Ana Fink MD [address] [place] [address] Fellow Gastroenterology 10/16/22 documented as of this encounter
--- OUTSIDE RECORDS SUMMARY | 2024-12-25 13:40 | XMS_ITS | Encounter Summary ---
Author Organization [place] Address [facility] [place] [address] Care Team Providers Care Field Return Repairer Name Role Phone Tatyana Dwyer MD Primary Care P rovider Annalee Toussaint PA-C Unavailable Cr Fung MD Unavailable [phone] Bianca Rubalcava RN Unavailable [phone] Wm Ryan MD Unavailable Tatyana Dwyer MD Unavailable Christen Gallardo MD Unavailable [phone] Ana Fink MD Unavailable Encounter Details Date Type Department Care Team (Late st Contact Info) Description 05/06/2023 [facility] Medical Advice 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 Gender Identity Male 12/19/2020 9:52 PM CDT Sexual Orientation Straight 12/19/2020 9: 52 PM CDT documented as of this encounter Plan of Treatment Upcoming Encounters Date Type Department Care Team (Late st Contact Info) Description 02/10/2025 11:30 AM CDT Office Visit [facility] [address] [facility] [address] [place] [address] Christen Gallardo MD [address] [place] [address] 11/22/2025 10:00 AM CDT Office Visit [facility] [address] [place] [phone] Tatyana Dwyer MD [address] [place], [place] 388137 documented as of this encounter Visit Diagnoses Not on filedocumented in this encounter Care Teams Field Return Repairer Relationship Specialty Start Date End Date Tatyana Dwyer MD [address] [place] [address] PCP - General Internal Medicine 06/01/19 Annalee Toussaint PA-C [address] [facility] [address] [place], [place] 48[address] Physician Engineering Coordinator Physician Engineering Coordinator - Medical 07/15/19 Cr Fung MD [address] [place] [address] 046785 Urology 07/15/19 Bianca Rubalcava, RN Specialty Bowling Alley Mechanic Urology 07/15/19 Wm Ryan MD [address] [place] [address] 134595 Resident Student in [facility] health care education/training program 02/01/21 Tatyana Dwyer MD [address] [place], [place] 126727 Assigned PCP 02/05/21 Christen Gallardo MD [address] [place], [place] [address] Assigned Endocrinology Provider 11/18/21 Ana Fink MD [address] [place] [address] [id number] Fellow Gastroenterology 10/16/22 documented as of this encounter
--- OUTSIDE RECORDS SUMMARY | 2024-12-25 13:40 | XMS_ITS | Encounter Summary ---
Author Organization [facility] Address [address] [place] [address] Care Team Providers Care Grievance Coordinator Name Role Phone Michelet Velasco MD Primary Care Provid er Reason for Visit * Reason Comments Post Visit Follow Up Phone Call Encounter Details Date Type Department Care Team (Late st Contact Info) Description 11/18/2024 Telephone [facility] [address] [place] [address] Delmar Escudero RN Post Visit Follow Up Phone Call Social History Tobacco Use Types Packs/Day [...] as of this encounter Nursing Notes * Delmar Escudero, RN - 11/18/2024 12:12 PM CDT Procedure done: LESI What is your pain at now? 3/10 What was your pain at it's worse since the procedure? 4/10 Any Side effects? Jittery Patient denies any red flag symptoms which include loss of bowel or bladder, progressive pain andweakness in the back or upper/lower extremities (beyond what prompted the need for injection), or any signs of infection. Denies any neurological deficits (loss or change in vision, tingling in arms or legs, dizziness, severe headache, seizures, etc.) Advised to call if any changes in condition. Any other concerns or questions? No Was the service provided satisfactory? Additional Comments: documented in this encounter Plan of Treatment Not on file documented as of this encounter Visit Diagnoses Not on filedocumented in this encounter Care Teams Grievance Coordinator Relationship Specialty Start Date End Date Michelet Velasco MD [address] [place] [address] PCP - General 10/20/13 documented as of this encounter
--- OUTSIDE RECORDS SUMMARY | 2024-12-25 13:40 | XMS_ITS | Encounter Summary ---
Author Organization [place] Address [address] [place] [address] Care Team Providers Care Management Architect Name Role Phone Tatyana Dwyer MD Primary Care P rovider Annalee Toussaint PA-C Unavailable [phone] Cr Fung MD Unavailable [phone] Bianca Rubalcava RN Unavailable [phone] Wm Ryan MD Unavailable Tatyana Dwyer MD Unavailable Christen Gallardo MD Unavailable [phone] Ana Fink MD Unavailable Reason for Referral * Consultation (Routine: Next available opening) - Closed Specialty Diagnoses / Procedures Referred By Contdonte t Referred To Contact Diagnoses Family history of colon cancer Manish Ryan MD [facility] GASTROINTESTINAL [address] [address], [place] [address] Phone: tel: fax: Referral ID Status Reason Start Date Expiration Date Visits Re quested Visits Authorized [id number] Closed 06/14/2023 06/13/2024 1 1 Question Answer Service: Screening Sedation Concerns: No medical conditions affecting sedation Sedation Type: Moderate/Conscious Sedation Preferred Location: [facility] Scheduling Instructions: [facility] will call you to coordinate your care as prescribed by the provider. If you don t hear from a quality control representative within 2 business days, please call . Comments Please be aware that coverage of these services is subject to the terms and limitations of your health insurance plan. Call member services at your health plan with any benefit or coverage questions. [facility] will call you to coordinate your care as prescribed by the provider. If you don t hear from a quality control representative within 2 business days, please call . 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 [address] [place] [address] Christen Gallardo MD [address] [place] [place] [address] 11/22/2025 10:00 AM CDT Office Visit [facility] [address] [place] [phone] Tatyana Dwyer MD [address] [place], [place] [address] Scheduled Referrals Name Type Priority Associated Diagnoses Order Schedule Colonoscopy Screening Optical Instrument Specialist Referral Referral Routine: Next available opening Family history of colon cancer Expected: 06/14/2023 (Approximate), Expires: 06/14/2024 documented as of this encounter Visit Diagnoses Diagnosis Family history of colon cancer- Primary Family history of malignant neoplasm of gastrointestinal tract documented in this encounter Care Teams Management Architect Relationship Specialty Start Date End Date Tatyana Dwyer MD [address] [place], [place] [address] PCP - General Internal Medicine 06/01/19 Annalee Toussaint, PAMarianaC [address] [facility] 500 [place] [address] Physician Board Writer Physician Board Writer - Medical 07/15/19 Cr Fung MD [address] [place] [address] 394 [place], [place] 1239[address] Urology 07/15/19 Bianca Rubalcava, RN Specialty Aadc Plans Staff Officer Urology 07/15/19 Wm Ryan MD [address] [place] [address] Resident Student in organized health care education/training program 02/01/21 Tatyana Dwyer MD [address] [place], [place] 092907 Assigned PCP 02/05/21 Christen Gallardo MD [address] [place] [address] Assigned Endocrinology Provider 11/18/21 Ana Fink MD [address] [place] [address] Fellow Gastroenterology 10/16/22 documented as of this encounter
--- OUTSIDE RECORDS SUMMARY | 2024-12-25 13:40 | XMS_ITS | Encounter Summary ---
Author Organization [place] Address [address] [place] [address] Care Team Providers Care Autism Tutor Name Role Phone Tatyana Dwyer MD Primary Care P rolorettader Tatyana Dwyer MD Unavailable Annalee Toussaint-C Unavailable Cr Fung MD Unavailable Bianca Rubalcava RN Unavailable [phone] Keegan Montemayor MD Unavailable Un available Joselin Andrade PA-C Unavailable Steven Tatum MD Unavailable Jim Mark MD Unavailable [phone] Jaime Wood MD Unavailable [phone] Annalee Toussaint-C Unavailable [phone] Honey Jackson APRN, CNP Unavailable + [phone] Wm Ryan MD Unavailable Tatyana Dwyer MD Unavailable Amalia Agosto GC Unavailable [phone] Jaime Wood MD Unavailable [phone] Christen Gallardo MD Unavailable [phone] Ana Fink MD Unavailable Encounter Details Date Type Department Care Team (Late st Contact Info) Description 06/26/2019 MyC Medical Advice [facility] Urology [facility] [address] [facility] [address] [place] [phone] Annalee Toussaint, PA-C [address] 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 Gender Identity Male 12/19/2020 9:52 PM CDT Sexual Orientation Straight 12/19/2020 9: 52 PM CDT documented as of this encounter Plan of Treatment Upcoming Encounters Date Type Department Care Team (Late st Contact Info) Description 02/10/2025 11:30 AM CDT Office Visit [facility] Specialty [facility] [address] [facility] [address] [place] [address] Christen Gallardo MD [address] [place] [address] 11/22/2025 10:00 AM CDT Office Visit [address] [place] [phone] Tatyana Dwyer MD [address] [place] [address] documented as of this encounter Visit Diagnoses Not on filedocumented in this encounter Additional Health Concerns Infection Onset Date Last Indicated Resolved Time Rule Out COVID-19 10/25/2021 10/25/2021 10/26/2021 12:43 PM CDT COVID-19 10/25/2021 10/25/2021 11/15/2021 11:3 9 PM CDT documented as of this encounter Care Teams Autism Tutor Relationship Specialty Start Date End Date Tatyana Dwyer MD [address] [place], [place] 39[address] PCP - General Internal Medicine 06/01/19 Tatyana Dwyer MD [address] [place], [place] 555927 Assigned PCP 05/31/19 10/15/20 Annalee Toussaint PA-C [address] [address] Physician Broadband Technician Physician Broadband Technician - Medical 07/15/19 Cr Fung MD [address] [place] [address] 394 [place] [address] Urology 07/15/19 Bianca Rubalcava, RN Specialty Pottery Decoration Designer Urology 07/15/19 Keegan Montemayor MD Assigned Heart and Vascular Provider 04/08/20 12/27/20 Joselin Andrade PA-C [address] [place] [address] Assigned Pediatric Specialist Provider 04/08/20 07/17/20 [place] [address] [place] [address] Assigned Surgical Provider 04/08/20 07/22/21 Jim Mark MD [address] [place] [address] 004035 Assigned Musculoskeletal Provider 04/08/20 02/11/21 Jaime Wood MD [address] [facility] [address] [place] [address] Assigned Sleep Provider 04/08/2004/08 Annalee Toussaint, PA-C [address] [place] [address] Assigned OBGYN Provider 08/31/20 1 Honey Jackson APRN [facility] [address] [place] [address] Assigned PCP 10/16/20 02/04/21 Wm Ryan MD [address] [place] [address] 907[address] Resident Student in organized health care education/training program 02/01/21 Tatyana Dwyer MD [address] [place] [address] Assigned PCP 02/05/21 Amalia Agosto GC [address]50 [place] [address] Assigned OBGYN Provider 05/07/21 07/15/21 Jaime Wood MD [address] [place] [address] [place] [address] Assigned Sleep Provider 07/09/21 Christen Gallardo MD [address] [address] Assigned Endocrinology Provider 11/18/21 Ana Fink MD [address] [place] [address] Fellow Gastroenterology 10/16/22 documented as of this encounter
--- OUTSIDE RECORDS SUMMARY | 2024-12-25 13:40 | XMS_ITS | Encounter Summary ---
Author Organization [place] Address [address] [place] [address] Care Team Providers Care Hearing Therapy Teacher Name Role Phone Tatyana Dwyer MD Primary Care P rolorettader Tatyana Dwyer MD Unavailable Annalee Toussaint-C Unavailable Cr Fung MD Unavailable [phone] Bianca Rubalcava RN Unavailable [phone] Keegan Montemayor MD Unavailable Un available Joselin Andrade PA-C Unavailable Steven Tatum MD Unavailable Jim Mark MD Unavailable [phone] Jaime Wood MD Unavailable [phone] Annalee Toussaint-C Unavailable [phone] Honey Jackson APRN, CNP Unavailable + [phone] Wm Ryan MD Unavailable Tatyana Dwyer MD Unavailable Amalia Agosto GC Unavailable [phone] Jaime Wood MD Unavailable [phone] Christen Gallardo MD Unavailable [phone] Ana Fink MD Unavailable Encounter Details Date Type Department Care Team (Late st Contact Info) Description 01/25/2020 MyC Medical Advice [facility] Dermatologic Surgery [address] 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 Gender Identity Male 12/19/2020 9:52 PM CDT [...] Description 02/10/2025 11:30 AM CDT Office Visit [place] [address] [place] [address] Christen Gallardo MD [address] [place] [address] 11/22/2025 10:00 AM CDT Office Visit [facility] [address] [place] [address] Tatyana Dwyer MD [address] [place], [place] [address] documented as of this encounter Visit Diagnoses Not on filedocumented in this encounter Additional Health Concerns Infection Onset Date Last Indicated Resolved Time Rule Out COVID-19 10/25/2021 10/25/2021 10/26/2021 12:43 PM CDT COVID-19 10/25/2021 10/25/2021 11/15/2021 11:3 9 PM CDT documented as of this encounter Care Teams Hearing Therapy Teacher Relationship Specialty Start Date End Date Tatyana Dwyer MD [address] [place], [place] 291077 PCP - General Internal Medicine 06/01/19 Tatyana Dwyer MD [address] [place], [place] 300297 Assigned PCP 05/31/19 10/15/20 Annalee Toussaint PA-C [address] [address]35[address] Physician Director Of Sustainability Physician Director Of Sustainability - Medical 07/15/19 Cr Fung MD [address] [place] [address] 394 [place], [place] 774095 Urology 07/15/19 Bianca Rubalcava, RN Specialty Gear Hobber Operator Urology 07/15/19 Keegan Montemayor MD Assigned Heart and Vascular Provider 04/08/20 12/27/20 Joselin Andrade PA-C [address] [place] [address] Assigned Pediatric Specialist Provider 04/08/20 07/17/20 [place] [address] [place] [address] Assigned Surgical Provider 04/08/20 07/22/21 Jim Mark MD [address] [place], [place] 539435 Assigned Musculoskeletal Provider 04/08/20 02/11/21 Jaime Wood MD [address] [place] [address] Assigned Sleep Provider 04/08/2004/08 Annalee Toussaint PA-C [address] [place], [place] 6[address] Assigned OBGYN Provider 08/31/20 1 Honey Jackson APRN [facility] [address] [place] [address] Assigned PCP 10/16/20 02/04/21 Wm Ryan MD [address] [place] [address] 646305 Resident Student in organized health care education/training program 02/01/21 Tatyana Dwyer MD [address] [place] [address] Assigned PCP 02/05/21 Amalia Agosto GC 2450 [place] [address] Assigned OBGYN Provider 05/07/21 07/15/21 Jaime Wood MD [address] [place] [address] [place] [address] Assigned Sleep Provider 07/09/21 Christen Gallardo MD [address] 718195 Assigned Endocrinology Provider 11/18/21 Ana Fink MD [address] [place] [address] 500125 Fellow Gastroenterology 10/16/22 documented as of this encounter
--- OUTSIDE RECORDS SUMMARY | 2024-12-25 13:40 | XMS_ITS | Encounter Summary ---
Author Organization [place] Address [address] [place] [address] Care Team Providers Care Edge Stainer Machine Name Role Phone Tatyana Dwyer MD Primary Care P rolorettader Tatyana Dwyer MD Unavailable Annalee Toussaint-C Unavailable [phone] Cr Fung MD Unavailable [phone] Bianca Rubalcava RN Unavailable [phone] Keegan Montemayor MD Unavailable Un available Joselin Andrade PA-C Unavailable Steven Tatum MD Unavailable Jim Mark MD Unavailable [phone] Jaime Wood MD Unavailable [phone] Annalee Toussaint-C Unavailable [phone] Honey Jackson APRN, CNP Unavailable + [phone] Wm Ryan MD Unavailable [phone] Tatyana Dwyer MD Unavailable Amalia Agosto GC Unavailable [phone] Jaime Wood MD Unavailable [phone] Christen Gallardo MD Unavailable [phone] Ana Fink MD Unavailable Encounter Details Date Type Department Care Team (Late st Contact Info) Description 01/26/2020 MyC Medical Advice [facility] Dermatologic Surgery [address] [facility] [address] 3rd [place] [address] Mohsen Downs MD 6 [facility] Romario kennedy [facility] 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 Gender Identity Male 12/19/2020 9:52 PM [...] Description 02/10/2025 11:30 AM CDT Office Visit [facility] [address] [place] [phone] Christen Gallardo MD [address] [facility] [place] [address] 11/22/2025 10:00 AM CDT Office Visit [facility] [address] [place] [phone] Tatyana Dwyer MD [address] [place], [place] 44[address]47 documented as of this encounter Visit Diagnoses Not on filedocumented in this encounter Additional Health Concerns Infection Onset Date Last Indicated Resolved Time Rule Out COVID-19 10/25/2021 10/25/2021 10/26/2021 12:43 PM CDT COVID-19 10/25/2021 10/25/2021 11/15/2021 11:3 9 PM CDT documented as of this encounter Care Teams Edge Stainer Machine Relationship Specialty Start Date End Date Tatyana Dwyer MD [address] [place], [place] [address] PCP - General Internal Medicine 06/01/19 Tatyana Dwyer MD [address] [place], [place] 866347 Assigned PCP 05/31/19 10/15/20 Annalee Toussaint, PAaMrianaC [address] 70[address] Physician Wire Rope Sales Representative Physician Wire Rope Sales Representative - Medical 07/15/19 Cr Fung MD [address] [place] [address] 394 [place], [place] 44[address] Urology 07/15/19 Bianca Rubalcava, RN Specialty Application Spec Urology 07/15/19 Keegan Montemayor MD Assigned Heart and Vascular Provider 04/08/20 12/27/20 Joselin Andrade PA-C 830 [place] [address] Assigned Pediatric Specialist Provider 04/08/20 07/17/20 [place] [address] [place], [place] [address] Assigned Surgical Provider 04/08/20 07/22/21 Jim Mark MD 9 [place], [place] 030045 Assigned Musculoskeletal Provider 04/08/20 02/11/21 Jaime Wood MD [address] [place] [address] Assigned Sleep Provider 04/08/2004/08 Annalee Toussaint PA-C [address] [place] [address] Assigned OBGYN Provider 08/31/20 1 Honey Jackson APRN GLASS CRUSHER [address] [place] [address] Assigned PCP 10/16/20 02/04/21 Wm Ryan MD [address] [place] [address] Resident Student in organized health care education/training program 02/01/21 Tatyana Dwyer MD [address] [place] [address] Assigned PCP 02/05/21 Amalia Agosto GC [address]50 [place] [address] Assigned OBGYN Provider 05/07/21 07/15/21 Jaime Wood MD [address] [facility] [address] [place] [address] Assigned Sleep Provider 07/09/21 Christen Gallardo MD [address] [place] [address] Assigned Endocrinology Provider 11/18/21 Ana Fink MD [address] [place] [address] Fellow Gastroenterology 10/16/22 documented as of this encounter
--- OUTSIDE RECORDS SUMMARY | 2024-12-25 13:41 | XMS_ITS | Encounter Summary ---
Author Organization [place] Address [facility] [place] [address] Care Team Providers Care Web Content Editor Name Role Phone Tatyana Dwyer MD Primary Care P rolorettader Annalee Toussaint PA-C Unavailable Cr Fung MD Unavailable Bianca Rubalcava RN Unavailable [phone] Wm Ryan MD Unavailable [place] Dwyer MD Unavailable Christen Gallardo MD Unavailable [phone] Ana Fink MD Unavailable Encounter Details Date Type Department Care Team (Late st Contact Info) Description 11/29/2024 Results Follow-Up [facility] [address] [facility] [address] [place] [address] Tatyana Dwyer MD [address] [place] [address] Subj: Message about your results Social History Tobacco Use Types Packs/Day Years [...] re latives? 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 Gender Identity Male 12/19/2020 9:52 PM CDT Sexual Orientation Straight 12/19/2020 9: 52 PM CDT documented as of this encounter Plan of Treatment Upcoming Encounters Date Type Department Care Team (Late st Contact Info) Description 02/10/2025 11:30 AM CDT Office Visit [address] [phone] Christen Gallardo MD [address] [place] [address] 11/22/2025 10:00 AM CDT Office Visit [address] [place] [address] [place] [phone] Tatyana Dwyer MD [address] [place], [place] 449797 documented as of this encounter Visit Diagnoses Not on filedocumented in this encounter Care Teams Web Content Editor Relationship Specialty Start Date End Date Tatyana Dwyer MD [address] [place] [address] PCP - General Internal Medicine 06/01/19 Annalee Toussaint PA-C [address] [place] [address] [place] [address] Physician Solar Energy Installation Manager Physician Solar Energy Installation Manager - Medical 07/15/19 Cr Fung MD [address] [place] [address]385 Urology 07/15/19 Bianca Rubalcava, RN Specialty Linen Clerk Urology 07/15/19 Wm Ryan MD [address] [place] [address] 896125 Resident Student in organized health care education/training program 02/01/21 Tatyana Dwyer MD [address] [place] [address] Assigned PCP 02/05/21 Christen Gallardo MD [address] [place] 248[address] Assigned Endocrinology Provider 11/18/21 Ana Fink MD [address] [place] [address] 949535 Fellow Gastroenterology 10/16/22 documented as of this encounter
--- OUTSIDE RECORDS SUMMARY | 2024-12-25 13:41 | XMS_ITS | Encounter Summary ---
Author Organization [place] Address [address] [place] [address] Care Team Providers Care County Or City Auditor Name Role Phone Tatyana Dwyer MD Primary Care P rovider Annalee Toussaint PA-C Unavailable [phone] Cr Fung MD Unavailable Bianca Rubalcava RN Unavailable [phone] Wm Ryan MD Unavailable [place] Dwyer MD Unavailable Christen Gallardo MD Unavailable [phone] Ana Fink MD Unavailable Encounter Details Date Type Department Care Team (Latest Contact Info) Description 11/23/2024 Travel Social History Tobacco Use Types Packs/Day [...] re latives? 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 Gender Identity Male 12/19/2020 9:52 PM CDT Sexual Orientation Straight 12/19/2020 9: 52 PM CDT documented as of this encounter Plan of Treatment Upcoming Encounters Date Type Department Care Team (Late st Contact Info) Description 02/10/2025 11:30 AM CDT Office Visit [facility] [address] [facility] [address] [place] [address] Christen Gallardo MD [address] [place] [address] 11/22/2025 10:00 AM CDT Office Visit [facility] [address] [place] [phone] Tatyana Dwyer MD [address] [place], [place] 804917 documented as of this encounter Visit Diagnoses Not on filedocumented in this encounter Care Teams County Or City Auditor Relationship Specialty Start Date End Date Tatyana Dwyer MD [address] [place], [place] 28[address] PCP - General Internal Medicine 06/01/19 Annalee Toussaint PA-C [address] [facility] [address] [place] [address] Physician Ash Kier Boiler Physician Ash Kier Boiler - Medical 07/15/19 Cr Fung MD [address] [place] [address] 394 [place] [address] Urology 07/15/19 Bianca Rubalcava, RN Specialty Business Test Analyst Urology 07/15/19 Wm Ryan MD [address] [place] [address] 111895 Resident Student in [facility] health care education/training program 02/01/21 Tatyana Dwyer MD [address] [place] [address] Assigned PCP 02/05/21 Christen Gallardo MD [address] [place], [place] 97[address] Assigned Endocrinology Provider 11/18/21 Ana Fink MD [address] [place] [address] Fellow Gastroenterology 10/16/22 documented as of this encounter
--- OUTSIDE RECORDS SUMMARY | 2024-12-25 13:41 | XMS_ITS | Encounter Summary ---
Author Organization [place] Address [facility] [place] [address] Care Team Providers Care Nsh Teacher Name Role Phone Tatyana Dwyer MD Primary Care P rovider Annalee Toussaint PA-C Unavailable [phone] Cr Fung MD Unavailable [phone] Bianca Rubalcava RN Unavailable [phone] Wm Ryan MD Unavailable [place] Dwyer MD Unavailable Christen Gallardo MD Unavailable [phone] Ana Fink MD Unavailable Encounter Details Date Type Department Care Team (Late st Contact Info) Description 05/22/2023 [facility] Medical [facility] [address] [place] [address] Christen Gallardo MD 39[address] [place], [place] 9737[address] Social History Tobacco Use Types Packs/Day Years [...] PM CDT 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 Gender Identity Male 12/19/2020 9:52 PM CDT Sexual Orientation Straight 12/19/2020 9: 52 PM CDT documented as of this encounter Plan of Treatment Upcoming Encounters Date Type Department Care Team (Late st Contact Info) Description 02/10/2025 11:30 AM CDT Office Visit [facility] [address] [facility] [address] [place] [address] Christen Gallardo MD [address] [address] 11/22/2025 10:00 AM CDT Office Visit [facility] [address] [place] [address] Tatyana Dwyer MD [address] [place], [place] 438[address] documented as of this encounter Visit Diagnoses Not on filedocumented in this encounter Care Teams Nsh Teacher Relationship Specialty Start Date End Date Tatyana Dwyer MD [address] [place] [address] PCP - General Internal Medicine 06/01/19 Annalee Toussaint PA-C [address] [facility] 500 [place], [place] [address] Physician Instantizer Operator Physician Instantizer Operator - Medical 07/15/19 Cr Fung MD [address] [place] [address] 417245 Urology 07/15/19 Bianca Rubalcava, RN Specialty Coke Handling Supervisor Urology 07/15/19 Wm Ryan MD [address] [place] [address]47895 Resident Student in [facility] health care education/training program 02/01/21 Tatyana Dwyer MD [address] [place], [place] 152957 Assigned PCP 02/05/21 Christen Gallardo MD [address] [place] [place], [place] 79[address] Assigned Endocrinology Provider 11/18/21 Ana Fink MD [address] [place] [address] 677165 Fellow Gastroenterology 10/16/22 documented as of this encounter
--- OUTSIDE RECORDS SUMMARY | 2024-12-25 13:41 | XMS_ITS | Encounter Summary ---
Author Organization [place] Address [address] [place] [address] Care Team Providers Care Storyboard Artist Name Role Phone Tatyana Dwyre MD Primary Care P rovider Annalee Toussaint PA-C Unavailable [phone] Cr Fung MD Unavailable Bianca Rubalcava RN Unavailable [phone] Wm Ryan MD Unavailable Tatyana Dwyer MD Unavailable Christen Gallardo MD Unavailable [phone] Ana Fink MD Unavailable Encounter Details Date Type Department Care Team (Latest Contact Info) Description 11/19/2024 Travel Social History Tobacco Use Types Packs/Day [...] re latives? 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 [address] [place] [phone] Christen Gallardo MD [address] [place] [address] 11/22/2025 10:00 AM CDT Office Visit [facility] [address] [place] [address] Tatyana Dwyer MD [address] [place], [place] 66[address] documented as of this encounter Visit Diagnoses Not on filedocumented in this encounter Care Teams Storyboard Artist Relationship Specialty Start Date End Date Tatyana Dwyer MD [address] [place], [place] 080257 PCP - General Internal Medicine 06/01/19 Annalee Toussaint PA-C [address] [facility] [address] [place] [address] Physician Retail Center Receptionist Physician Retail Center Receptionist - Medical 07/15/19 Cr Fung MD [address] [place] [address] [address] [place] [address] Urology 07/15/19 Bianca Rubalcava, RN Specialty Imcu Specialist Urology 07/15/19 Wm Ryan MD [address] [place] [address] 549765 Resident Student in [facility] health care education/training program 02/01/21 Tatyana Dwyer MD [address] [place] [address] Assigned PCP 02/05/21 Christen Gallardo MD [address] [place], [place] 500[address] Assigned Endocrinology Provider 11/18/21 Ana Fink MD [address] [place] [address] Fellow Gastroenterology 10/16/22 documented as of this encounter
--- OUTSIDE RECORDS SUMMARY | 2024-12-25 13:41 | XMS_ITS | Encounter Summary ---
Author Organization [place] Address [address] [place] [address] Care Team Providers Care Expediter Name Role Phone Tatyana Dwyer MD Primary Care P rolorettader Tatyana Dwyer MD Unavailable Annalee Toussaint-C Unavailable [phone] Cr Fung MD Unavailable [phone] Bianca Rubalcava RN Unavailable [phone] Keegan Montemayor MD Unavailable Un available Joselin Andrade PA-C Unavailable Steven Tatum MD Unavailable Jim Mark MD Unavailable [phone] Jaime Wood MD Unavailable [phone] Annalee Toussaint-C Unavailable [phone] Honey Jackson APRN, CNP Unavailable + [phone] Wm Ryan MD Unavailable Tatyana Dwyer MD Unavailable Amalia Agosto GC Unavailable [phone] Jaime Wood MD Unavailable [phone] Christen Gallardo MD Unavailable [phone] Ana Fink MD Unavailable Encounter Details Date Type Department Care Team (Late st Contact Info) Description 08/27/2019 Orders Only [facility] [address] [facility] [address] 5th [place] [address] Hill Spears MD [address] [facility] [address] [facility] 7[address] [place] [address] Social History Tobacco Use Types Packs/Day Years [...] CDT 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 Gender Identity Male 12/19/2020 9:52 PM CDT Sexual Orientation Straight 12/19/2020 9: 52 PM CDT documented as of this encounter Plan of Treatment Upcoming Encounters Date Type Department Care Team (Late st Contact Info) Description 02/10/2025 11:30 AM CDT Office Visit [address] [place] [address] Christen Gallardo MD [address] [place] [address] 11/22/2025 10:00 AM CDT Office Visit [place] [address] [place] [address] Tatyana Dwyer MD [address] [place] [address] documented as of this encounter Visit Diagnoses Not on filedocumented in this encounter Additional Health Concerns Infection Onset Date Last Indicated Resolved Time Rule Out COVID-19 10/25/2021 10/25/2021 10/26/2021 12:43 PM CDT COVID-19 10/25/2021 10/25/2021 11/15/2021 11:3 9 PM CDT documented as of this encounter Care Teams Expediter Relationship Specialty Start Date End Date Tatyana Dwyer MD [address] [place], [place] 213127 PCP - General Internal Medicine 06/01/19 Tatyana Dwyer MD [address] [place] [address] Assigned PCP 05/31/19 10/15/20 Annalee Toussaint PA-C [address] 645[address] Physician Manager Equity Physician Manager Equity - Medical 07/15/19 Cr Fung MD [address] [place] [address] 394 [place] [address] Urology 07/15/19 Bianca Rubalcava, RN Specialty Gas Fitter Helper Urology 07/15/19 Keegan Montemayor MD Assigned Heart and Vascular Provider 04/08/20 12/27/20 Joselin Andrade PA-C [address] [place] [address] Assigned Pediatric Specialist Provider 04/08/20 07/17/20 [place] [address] [place] [address] Assigned Surgical Provider 04/08/20 07/22/21 Jim Mark MD [address] [place] [address] 091505 Assigned Musculoskeletal Provider 04/08/20 02/11/21 Jaime [place] MD [address] [facility] [address] [place], [place] 409585 Assigned Sleep Provider 04/08/2004/08 Annalee Toussaint, DUSTYC [address] [facility] [address] [place], [place] 653465 Assigned OBGYN Provider 08/31/20 1 Honey Jackson APRN [facility] [address] [place] [address] Assigned PCP 10/16/20 02/04/21 Wm Ryan MD [address] [place] [address] 038825 Resident Student in organized health care education/training program 02/01/21 Tatyana Dwyer MD [address] [place] [address] Assigned PCP 02/05/21 Amalia Agosto GC [address] [place] [address] Assigned OBGYN Provider 05/07/21 07/15/21 Jaime Wood MD [address] [place] [address] [place] [address] Assigned Sleep Provider 07/09/21 Christen Gallardo MD [address] [place] [address] Assigned Endocrinology Provider 11/18/21 Ana Fink MD [address] [place] [address] Fellow Gastroenterology 10/16/22 documented as of this encounter
--- OUTSIDE RECORDS SUMMARY | 2024-12-25 13:41 | XMS_ITS | Encounter Summary ---
Author Organization [place] Address [address] [place] [address] Care Team Providers Care Electrical Systems Design Engineer Name Role Phone Tatyana Dwyer MD Primary Care P rolorettader Tatyana Dwyer MD Unavailable Annalee Toussaint PA-C Unavailable Cr Fung MD Unavailable [phone] Bianca Rubalcava RN Unavailable [phone] Keegan Montemayor MD Unavailable Un available Steven Tatum MD Unavailable Jim Mark MD Unavailable Jaime Wood MD Unavailable Annalee Toussaint PA-C Unavailable [phone] Honey Jackson APRN, CNP Unavailable + [phone] Wm Ryan MD Unavailable Tatyana Dwyer MD Unavailable Amalia Agosto GC Unavailable [phone] Jaime Wood MD Unavailable [phone] Christen Gallardo MD Unavailable [phone] Ana Fink MD Unavailable Reason for Visit * Reason Onset Date Comments Refill Request 10/03/2020 nebivolol (BYSTO LIC) 2.5 MG tablet Encounter Details Date Type Department Care Team (Late st Contact Info) Description 10/03/2020 Refill [facility] [address] [facility] [address] [place] [phone] Tatyana Dwyer MD [address] [place] [address] Refill Request (nebivolol (BYSTOLIC) 2.5 MG tablet) [...] PM CDT 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 Should be available refill on file. documented in this encounter Plan of Treatment Upcoming Encounters Date Type Department Care Team (Late Contact Info) Description 02/10/2025 11:30 AM CDT Office Visit [address] [place] [phone] Christen Gallardo MD [address] [place] [address] 11/22/2025 10:00 AM CDT Office Visit [facility] [address] [place] [address] Tatyana Dwyer MD [address] [place], [place] 2[address]77 documented as of this encounter Visit Diagnoses Diagnosis Tachycardia Tachycardia, unspecified HTN, goal below 140/90 Unspecified essential hypertension documented in this encounter Additional Health Concerns Infection Onset Date Last Indicated Resolved Time Rule Out COVID-19 10/25/2021 10/25/2021 10/26/2021 12:43 PM CDT COVID-19 10/25/2021 10/25/2021 11/15/2021 11:3 9 PM CDT documented as of this encounter Care Teams Electrical Systems Design Engineer Relationship Specialty Start Date End Date Tatyana Dwyer MD [facility] [address] [place], [place] [address] PCP - General Internal Medicine 06/01/19 Tatyana Dwyer MD [address] [place], [place] 715827 Assigned PCP 05/31/19 10/15/20 Annalee Toussaint PA-C [address] [facility] [address] [place] [address] Physician Patient Observer Physician Patient Observer - Medical 07/15/19 Cr Fung MD [address] [place] [address]885 Urology 07/15/19 Bianca Rubalcava, RN Specialty City Superintendent Of Schools Urology 07/15/19 Keegan Montemayor MD Assigned Heart and Vascular Provider 04/08/20 12/27/20 [place] [address] [place], [place] 35[address] Assigned Surgical Provider 04/08/20 07/22/21 Jim Mark MD [address] [place], [place] 714085 Assigned Musculoskeletal Provider 04/08/20 02/11/21 Jaime Wood MD [address] [place] [address] Assigned Sleep Provider 04/08/2004/08 Annalee Toussaint PA-C [address] [place], [place] 96[address] Assigned OBGYN Provider 08/31/20 1 Honey Jackson APRN ORTHOPEDIC SHOES SALESPERSON [address] [place], [place] 976617 Assigned PCP 10/16/20 02/04/21 Wm Ryan MD [address] [place] [address] Resident Student in organized health care education/training program 02/01/21 Tatyana Dwyer MD [address] [place] [address] Assigned PCP 02/05/21 Amalia Agosto GC [address]50 [place] [address] Assigned OBGYN Provider 05/07/21 07/15/21 Jaime Wood MD [address] [facility] [address] [place] [address] Assigned Sleep Provider 07/09/21 Christen Gallardo MD [address] [place] [address] Assigned Endocrinology Provider 11/18/21 Ana Fink MD [address] [place] [address] Fellow Gastroenterology 10/16/22 documented as of this encounter
--- OUTSIDE RECORDS SUMMARY | 2024-12-25 13:41 | XMS_ITS | Encounter Summary ---
Author Organization [place] Address [facility] [place] [address] Care Team Providers Care Grinding Supervisor Name Role Phone Tatyana Dwyer MD Primary Care P rovider Annalee Toussaint PA-C Unavailable [phone] Cr Fung MD Unavailable [phone] Bianca Rubalcava RN Unavailable [phone] Wm Ryan MD Unavailable [phone] Tatyana Dwyer MD Unavailable Christen Gallardo MD Unavailable [phone] Ana Fink MD Unavailable Encounter Details Date Type Department Care Team (Late st Contact Info) Description 12/01/2024 Results Follow-Up [facility] [place] [address] [place] [address] 200 [place] [address] Christen Gallardo MD [address] [place], [place] 619195 Subj: Message about your results Social History [...] re latives? 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 Gender Identity Male 12/19/2020 9:52 PM CDT Sexual Orientation Straight 12/19/2020 9: 52 PM CDT documented as of this encounter Plan of Treatment Upcoming Encounters Date Type Department Care Team (Late st Contact Info) Description 02/10/2025 11:30 AM CDT Office Visit [address] [phone] Christen Gallardo MD [address] [place] [address] 11/22/2025 10:00 AM CDT Office Visit [place] [address] [place] [phone] Tatyana Dwyer MD [address] [place], [place] 372097 documented as of this encounter Visit Diagnoses Not on filedocumented in this encounter Care Teams Grinding Supervisor Relationship Specialty Start Date End Date Tatyana Dwyer MD [address] [place] [address] PCP - General Internal Medicine 06/01/19 Annalee Toussaint PA-C [address] [place] [address] [place] [address] Physician Flexible Nanny Physician Flexible Nanny - Medical 07/15/19 Cr Fung MD [address] [place] [address] 607925 Urology 07/15/19 Bianca Rubalcava, RN Specialty Platform Software Engineer Urology 07/15/19 Wm Ryan MD [address] [place] [address] 357025 Resident Student in organized health care education/training program 02/01/21 Tatyana Dwyer MD [address] [place] [address] Assigned PCP 02/05/21 Christen Gallardo MD [address] [place] [place] 065165 Assigned Endocrinology Provider 11/18/21 Ana Fink MD [address] [place] [address] 929155 Fellow Gastroenterology 10/16/22 documented as of this encounter
--- OUTSIDE RECORDS SUMMARY | 2024-12-25 13:41 | XMS_ITS | Encounter Summary ---
Author Organization [place] Address [facility] [place] [address] Care Team Providers Care Artificial Foliage Arranger Name Role Phone Tatyana Dwyer MD Primary Care P rovider Annalee Toussaint PA-C Unavailable [phone] Cr Fung MD Unavailable Bianca Rubalcava RN Unavailable [phone] Wm Ryan MD Unavailable [phone] Tatyana Dwyer MD Unavailable Christen Gallardo MD Unavailable [phone] Ana Fink MD Unavailable Reason for Visit * Reason Onset Date Comments Medication Request 11/18/2024 Zepbound dose increase Encounter Details Date Type Department Care Team (Late st Contact Info) Description 11/18/2024 [facility] [address] [facility] 200 [place] [address] Christen Gallardo MD [address] [place] [address] Medication Request (Zepbound dose increase) Social History Tobacco Use Types Packs/Day Years [...] re latives? 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 Gender Identity Male 12/19/2020 9:52 PM CDT Sexual Orientation Straight 12/19/2020 9: 52 PM CDT documented as of this encounter Plan of Treatment Upcoming Encounters Date Type Department Care Team (Late st Contact Info) Description 02/10/2025 11:30 AM CDT Office Visit [facility] [address] [place] [phone] Christen Gallardo MD [address] [place] [address] 11/22/2025 10:00 AM CDT Office Visit [place] [address] [place] [address] aTtyana Dwyer MD [address] [place], [place] 989367 documented as of this encounter Visit Diagnoses Diagnosis Class 3 severe obesity with serious comorbidity and body mass index (BMI) of 45.0 to 49.9 in adult, unspecified obesity type (H)- Primary documented in this encounter Care Teams Artificial Foliage Arranger Relationship Specialty Start Date End Date Tatyana Dwyer MD [address] [place] [address] PCP - General Internal Medicine 06/01/19 Annalee Toussaint PA-C [address] [address] Physician Enchilada Maker Physician Enchilada Maker - Medical 07/15/19 Cr Fung MD [address] [place] [address] 076585 Urology 07/15/19 Bianca Rubalcava, RODNEY Specialty Electromechanic Urology 07/15/19 Wm Ryan MD [address] [place] [address] 489685 Resident Student in organized health care education/training program 02/01/21 Tatyana Dwyer MD [address] [place] [address] Assigned PCP 02/05/21 Christen Gallardo MD [address] [place] 528[address] Assigned Endocrinology Provider 11/18/21 Ana Fink MD [address] [place] [address] 811725 Fellow Gastroenterology 10/16/22 documented as of this encounter
--- OUTSIDE RECORDS SUMMARY | 2024-12-25 13:41 | XMS_ITS | Encounter Summary ---
Author Organization [place] Address Replaced by [facility] [place] [address] Care Team Providers Care Maintenance Pipefitter Name Role Phone Tatyana Dwyer MD Primary Care P rolorettader Annalee Toussaint PA-C Unavailable Cr Fung MD Unavailable Bianca Rubalcava RN Unavailable [phone] Wm Ryan MD Unavailable Tatyana Dwyer MD Unavailable Christen Gallardo MD Unavailable [phone] Ana Fink MD Unavailable Reason for Visit * Reason Onset Date Comments Results 11/29/2024 Encounter Details Date Type Department Care Team (Late st Contact Info) Description 11/29/2024 [facility] Medical Advice [address] [place] [address] Tatyana Dwyer MD [address] [place] [address] Results Social History Tobacco Use Types Packs/Day Years [...] re latives? 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 Gender Identity Male 12/19/2020 9:52 PM CDT Sexual Orientation Straight 12/19/2020 9: 52 PM CDT documented as of this encounter Plan of Treatment Upcoming Encounters Date Type Department Care Team (Late st Contact Info) Description 02/10/2025 11:30 AM CDT Office Visit [address] [phone] Christen Gallardo MD [address] [place], [place] 2[address] 11/22/2025 10:00 AM CDT Office Visit [facility] [address] [place] [place] [address] Tatyana Dwyer MD [address] [place], [place] [address] documented as of this encounter Visit Diagnoses Not on filedocumented in this encounter Care Teams Maintenance Pipefitter Relationship Specialty Start Date End Date Tatyana Dwyer MD [address] [place] [address] PCP - General Internal Medicine 06/01/19 Annalee Toussaint PA-C [address] [place] [address] [place] [address]955 Physician Cinder Dump Crane Operator Physician Cinder Dump Crane Operator - Medical 07/15/19 Cr Fung MD [address] [place] [address] 359605 Urology 07/15/19 Bianca Rubalcava, RN Specialty Explosives Mixer Operator Urology 07/15/19 Wm Ryan MD [address] [place] [address] 863565 Resident Student in organized health care education/training program 02/01/21 Tatyana Dwyer MD [address] [place] [address] Assigned PCP 02/05/21 Christen Gallardo MD [address] [place] [place] 566125 Assigned Endocrinology Provider 11/18/21 Ana Fink MD [address] [place] [address] 230345 Fellow Gastroenterology 10/16/22 documented as of this encounter
--- OUTSIDE RECORDS SUMMARY | 2024-12-25 13:41 | XMS_ITS | Encounter Summary ---
Author Organization [place] Address [address] [place] [address] Care Team Providers Care Plant Maintenance Worker Name Role Phone Tatyana Dwyer MD Primary Care P rovider Annalee Toussaint PA-C Unavailable [phone] Cr Fung MD Unavailable [phone] Bianca Rubalcava RN Unavailable [phone] Wm Ryan MD Unavailable [phone] Tatyana Dwyer MD Unavailable Christen Gallardo MD Unavailable [phone] Ana Fink MD Unavailable Encounter Details Date Type Department Care Team (Latest Contact Info) Description 11/15/2024 Travel Social History Tobacco Use Types Packs/Day [...] re latives? 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 Gender Identity Male 12/19/2020 9:52 PM CDT Sexual Orientation Straight 12/19/2020 9: 52 PM CDT documented as of this encounter Plan of Treatment Upcoming Encounters Date Type Department Care Team (Late st Contact Info) Description 02/10/2025 11:30 AM CDT Office Visit [facility] [address] [facility] [address] [place] [phone] Christen Gallardo MD [address] [place] [address] 11/22/2025 10:00 AM CDT Office Visit [facility] [address] [place] [address] [place] [phone] Tatyana Dwyer MD [address] [place], [place] 417147 documented as of this encounter Visit Diagnoses Not on filedocumented in this encounter Care Teams Plant Maintenance Worker Relationship Specialty Start Date End Date Tatyana Dwyer MD [address] [place], [place] [address] PCP - General Internal Medicine 06/01/19 Annalee Toussaint PA-C [address] [facility] [address] [place] [address] Physician Senior Administrative Services Officer Physician Senior Administrative Services Officer - Medical 07/15/19 Cr Fung MD [address] [place] [address] 394 [place] [address] Urology 07/15/19 Bianca Rubalcava, RN Specialty Parent Coach Urology 07/15/19 Wm Ryan MD [address] [place] [address] [id number] Resident Student in [facility] health care education/training program 02/01/21 Tatyana Dwyer MD [address] [place] [address] Assigned PCP 02/05/21 Christen Gallardo MD [address] [place] [place], [place] 9[address] Assigned Endocrinology Provider 11/18/21 Ana Fink MD [address] [place] [address] Fellow Gastroenterology 10/16/22 documented as of this encounter
--- OUTSIDE RECORDS SUMMARY | 2024-12-25 13:41 | XMS_ITS | Encounter Summary ---
Author Organization [facility] Address [address] [place] [id number] Care Team Providers Care Services Engineer Name Role Phone Tatyana Dwyer MD Primary Care P rovider Annalee Toussaint PA-C Unavailable [phone] Cr Fung MD Unavailable Bianca Rubalcava RN Unavailable [phone] Wm Ryan MD Unavailable Tatyana Dwyer MD Unavailable Christen Gallardo MD Unavailable [phone] Ana Fink MD Unavailable Encounter Details Date Type Department Care Team (Latest Contact Info) Description 11/20/2024 Travel Social History Tobacco Use Types Packs/Day [...] re latives? Twice a week 11/15/2024 Attends [employer] Not on file 11/15 [...] Answer Date Recorded PHQ-2 Score 0 11/20/2024 [facility] - [...] CDT Legal Sex Male 3:08 AM [employer] Gender Identity Male 12/19/2020 9:52 PM CDT Sexual Orientation Straight 12/19/2020 9: 52 PM CDT documented as of this encounter Plan of Treatment Upcoming Encounters Date Type Department Care Team (Late st Contact Info) Description 02/10/2025 11:30 AM CDT Office Visit [facility] [address] [place] [phone] Christen Gallardo MD [address] [place] [address] 11/22/2025 10:00 AM CDT Office Visit [facility] [address] [place] [phone] Tatyana Dwyer MD [address], [place] [id number] documented as of this encounter Visit Diagnoses Not on filedocumented in this encounter Care Teams Services Engineer Relationship Specialty Start Date End Date Tatyana Dwyer MD [address], [place] [id number] PCP - General Internal Medicine 06/01/19 Annalee Toussaint PA-C [address] [facility] [address] [place] [address] Physician Peanut Blancher Physician Peanut Blancher - Medical 07/15/19 Cr Fung MD [address] [place] [address] [address] [place] [address] Urology 07/15/19 Bianca Rubalcava, RN Specialty Automatic Hemmer Urology 07/15/19 Wm Ryan MD [address] [place] [id number] Resident Student in [facility] health care education/training program 02/01/21 Tatyana Dwyer MD [address] [place] [address] Assigned PCP 02/05/21 Christen Gallardo MD [address] [place], [place] [address] Assigned Endocrinology Provider 11/18/21 Ana Fink MD [address] [place] [address] Fellow Gastroenterology 10/16/22 documented as of this encounter
[2024-12-25 13:45] VITALS: BP 128/78; PULSE 83; RESP 18; TEMP 37.2; O2SAT 96; BMI 38.9
--- NOTE | 2024-12-25 14:00 | CRLHL7_ITS ---
For Patients: As a result of the Century Cures Act, medical imaging exams and procedure reports are released immediately into your electronic medical record. You may view this report before your referring provider. If you have questions, please contact your health care provider. INDICATION: Left calf pain TECHNIQUE: Ultrasound venous duplex lower left extremity. Compression venous exam was performed using street-scale, color Doppler, and spectral Doppler analysis. COMPARISON: None. FINDINGS: Sonographic imaging demonstrates the left common femoral, deep femoral, superficial femoral, popliteal, posterior tibial and greater saphenous and the contralateral right common femoral veins to be fully compressible with normal color Doppler blood flow. IMPRESSION: Normal left lower extremity venous ultrasound, no sign of deep venous thrombosis. Dictated by Fabrice Murillo MD @ 12/25/2024 3:05:16 PM (Electronically Signed)
--- NOTE | 2024-12-25 14:00 | ED.GENADULT ---
HPI - General Adult General Chief complaint: Extremity Pain/Injury, Lower Stated complaint: left calf pain Time Seen by Provider: 12/25/24 13:38 History of Present Illness HPI narrative: [age] year white male with history of blood clots in the family with his mother, presents some tenderness and pain in his left calf and posterior knee area she has had an infection in the left upper thigh from giving himself testosterone shots, he finished a course of Keflex. He is concerned he might have a DVT given the stiffness and numbness in his calf on the left. He has pretty large cast from musculature and has not noticed marked swelling, no fever, no redness. He has had no personal history DVT has no chest pain or breathing problem. His O2 sat is 96% on room air. Related Data Home Medications ?Medication ?Instructions ?Recorded ?Confirmed hydrochlorothiazide 25 mg tablet 25 mg PO QDAY 11/08/22 12/25/24 lisinopril 20 mg tablet 10 mg PO QDAY 11/08/22 12/25/24 nebivolol 2.5 mg tablet (Bystolic) 2.5 mg PO QDAY 11/23/22 11/19/24 omeprazole 20 mg capsule,delayed 20 mg PO DAILY 07/16/24 11/19/24 release semaglutide (weight loss) 0.25 0.25 mg subcut 07/16/24 11/19/24 mg/0.5 mL subcutaneous pen injector (Wegovy) testosterone cypionate 200 mg/mL 150 mg IM Q2W 07/16/24 11/19/24 intramuscular oil wegouy 2.4 mg 07/16/24 11/19/24 methocarbamol 500 mg tablet 500 mg PO 3XD 11/13/24 11/19/24 prednisone 20 mg tablet 20 mg PO BID 11/13/24 11/19/24 testosterone 81 mg topical QAM 11/13/24 11/19/24 tirzepatide (weight loss) 7.5 7.5 mg subcut 11/13/24 11/19/24 mg/0.5 mL subcutaneous pen injector (Zepbound) tirzepatide (weight loss) 5 mg/0.5 5 mg subcut 12/25/24 mL subcutaneous pen injector (Zepbound) Previous Rx's ?Medication ?Instructions ?Recorded oxycodone 5 mg tablet 5 mg PO Q6H PRN pain #12 tabs 11/13/24 methylprednisolone 4 mg tablets in See Rx Instructions PO PER PKG DIR 11/19/24 a dose pack (Medrol (Yaya)) #21 ea Allergies Allergy/AdvReac Type Severity Reaction Status Date / Time No Known Drug Allergies Allergy Verified 11/19/24 13:12 Review of Systems Status of ROS: Reports: 6 or more systems reviewed and unremarkable except as noted in History and below PFSH [facility] Medical History Pituitary adenoma ?D35.2 - Benign neoplasm of pituitary gland (ICD-10) Class 3 severe obesity with serious comorbidity and body mass index (BMI) of 45.0 to 49.9 in adult ?E66.813 - Obesity, class 3 (ICD-10) ?Z68.42 - Body mass index [BMI] 45.0-49.9, adult (ICD-10) Erectile dysfunction ?N52.9 - Male erectile dysfunction, unspecified (ICD-10) Hypogonadism in male ?E29.1 - Testicular hypofunction (ICD-10) Left lumbar radiculopathy ?M54.16 - Radiculopathy, lumbar region (ICD-10) Social History Smoking Status: Never smoker service: No Exam Narrative: Exam Narrative: Objective: Vital signs within normal limits Alert or x3 Left lower extremity shows large calf, he reports that somewhat numb. Little bit of stiffness in the back of note is he has no back pain. He has got normal range of motion of the foot and ankle. He is ambulatory without difficulty. No warmth erythema the calf or leg or knee. No knee effusion Const: Vital Signs, click to edit/add: Vital Signs - 24 hr 12/25/24 13:45 Temperature 98.9 F Pulse Rate [Pulse Oximeter] 83 Respiratory Rate 18 Blood Pressure [Ri ght Upper Arm] 128/78 Pulse Oximetry 96 Oxygen Delivery Me thod Room Air Course Vital Signs Vital signs: Initial Vital Signs Temperature 98.9 F 12/25/24 13:45 Temperature Source Temporal Artery Scan 12/25/24 13:45 Pulse Rate 83 12/25/24 13:45 Respiratory Rate 18 12/25/24 13:45 Blood Pressure 128/78 12/25/24 13:45 Blood Pressure Mean 94 12/25/24 13:45 Pulse Oximetry 96 12/25/24 13:45 Oxygen Delivery Method Room Air 12/25/24 13:45 Vital Signs Temperature 98.9 F 12/25/24 13:45 Pulse Rate 83 12/25/24 13:45 Respiratory Rate 18 12/25/24 13:45 Blood Pressure 128/78 12/25/24 13:45 Pulse Oximetry 96 12/25/24 13:45 Oxygen Delivery Method Room Air 12/25/24 13:45 Temperature 98.9 F 12/25/24 13:45 Pulse Rate 83 12/25/24 13:45 Respiratory Rate 18 12/25/24 13:45 Blood Pressure 128/78 12/25/24 13:45 Pulse Oximetry 96 12/25/24 13:45 Oxygen Delivery Method Room Air 12/25/24 13:45 Medical Decision Making MDM Narrative Medical decision making narrative: 39-year-old male with a recent infection is left upper extremity requiring Keflex, with calf numbness tightness and discomfort. He is concerned given his family history of DVT that this could be a blood clot. I think an ultrasound of his leg would be a reassuring. If it is negative for DVT that I think stretching Advil icing would be appropriate to the calf area. Please see addendum Addendum 2:42 p.m.: Patient's Doppler scan is negative for DVT. Rest, ice, Advil as needed, stretching, follow-up with primary care in the next 4-5 days not resolved. He was comfortable as planned thanks Discharge Plan Discharge Clinical Impression: Pain of left calf Patient Disposition: Home, Self-Care Condition: Stable Additional Instructions: Advil or Aleve, icing to the calf 5-10 minutes 3 to 5 times a day, stretching of the calf. Follow up with primary care in the next 3-5 days not resolving for consideration of PT or other modality. Return sooner p.r.n. Activity Level: No Restrictions Discharge Diet: Regular Prescriptions: No Action lisinopril 20 mg tablet 10 mg PO QDAY hydrochlorothiazide 25 mg tablet 25 mg PO QDAY nebivolol [Bystolic] 2.5 mg tablet 2.5 mg PO QDAY methylprednisolone [Medrol (Yaya)] 4 mg tablets,dose pack See Rx Instructions PO PER PKG DIR Qty: 21 1RF Rx Instructions: PO PER PKG DIR for 6 days omeprazole 20 mg capsule,delayed release(DR/EC) 20 mg PO DAILY wegouy 2.4 mg Patient Comments: 2.4 mg/1.75 ml once weekly testosterone cypionate 200 mg/mL oil 150 mg IM Q2W Wegovy 0.25 mg/0.5 mL pen injector 0.25 mg subcut methocarbamol 500 mg tablet 500 mg PO 3XD prednisone 20 mg tablet 20 mg PO BID testosterone 20.25 mg/1.25 gram (1.62 %) gel in metered-dose pump 81 mg topical QAM Zepbound 7.5 mg/0.5 mL pen injector 7.5 mg subcut oxycodone 5 mg tablet 5 mg PO Q6H PRN (Reason: pain) Qty: 12 0RF Zepbound 5 mg/0.5 mL pen injector 5 mg subcut Follow Up/Referrals: Provider,Not a Local [Primary Care Provider, Family Practice] Stand Alone Forms: MyHealth Info Instructions
== END 2024-12-25 14:59 | disposition home or self-care (01) ==
LOC: ED 14:04
PROVIDERS: Emergency Provider Family Medicine
DX: M79.662 Pain in left lower leg (principal)
CPT/HCPCS: 93971; 99283; 99284